=== PATIENT | female | born 1995 | race African-American/Black ===

== ENCOUNTER 2016-11-17 14:16 | Inpatient (IN) | payer SELFPAY ==
[~2016-11-17] VITALS: Ht 157.5 cm; Wt 49.9 kg
[~2016-11-17 14:16] MED LIST: CALC200T3 PO; INSU100C4 SQ; INSU100I17 SQ; INSU100I27 SQ; INSU100V13 SQ; INSU100V8 SQ; LISI2.5T PO; METR500T PO; PANT40TA3 PO
[2016-11-17 15:11] LABS: NEG OBC UR NEG; POS OBC UR POS
[2016-11-17] MEDS ORDERED: IV NORMAL SALINE 1000ML BAG 1,000 ML IV SCH (15:12)
[2016-11-17] MEDS ORDERED: FAMOTIDINE 20 MG/2 ML VIAL IVP ONE (15:15)
[2016-11-17] MEDS ORDERED: LIDO:MAALOX:DONNATAL 1:1:1 15 ML SINGLE DOSE SWSW ONE (15:15)
[2016-11-17] MEDS ORDERED: ONDANSETRON PF 4 MG/2 ML VIAL. IV ONE (15:15)
[2016-11-17 15:16] LABS: BILIRUBIN,URINE NEGATIVE (NEG); GLUCOSE,URINE >=1000 mg/dL (NEG); NITRITE,URINE NEGATIVE (NEG); PH,URINE 5.5; PROTEIN,URINE NEGATIVE (NEG-TRACE); UROBILINOGEN,URINE 0.2 mg/dL (0.2 mg/dL)
[2016-11-17] MEDS ORDERED: LIDO:MAALOX:DONNATAL 1:1:1 15 ML SINGLE DOSE ONE (15:18)
[2016-11-17 15:21] LABS: BASO # 0.1 x10^3/uL (0.0-0.2); BASO % 1 % (0-3); EOS % 1 % (0-3); HEMATOCRIT 45.4 % (36.0-47.0); HEMOGLOBIN 14.9 g/dL (12.0-15.5); LYMPH # 1.9 x10^3/uL (1.0-4.8); LYMPH % 29 % (24-48); MEAN CORPUSCULAR HEMOGLOBIN 30 pg (25-35); MEAN CORPUSCULAR HGB CONC 33 g/dL (31-37); MEAN CORPUSCULAR VOLUME 92 fL (79-100); MONO % 5 % (0-9); NEUT % 64 % (31-73); PLATELET COUNT 387 x10^3/uL (140-400); RED BLOOD COUNT 4.92 x10^6/uL (3.50-5.40); WHITE BLOOD COUNT 6.4 x10^3/uL (4.0-11.0)
[2016-11-17 15:29] LABS: BACTERIA,URINE FEW /HPF (0-FEW); RBC,URINE 0 /HPF (0-2); SQUAMOUS EPITHELIAL CELL,UR MANY /LPF; WBC,URINE OCC /HPF (0-4)
[2016-11-17 16:02] LABS: BARBITURATES NEG (NEG); BENZODIAZEPINES NEG (NEG); CANNABINOIDS NEG (NEG); COCAINE NEG (NEG); METHADONE NEG (NEG); OPIATES NEG (NEG); PHENCYCLIDINE NEG (NEG)
[2016-11-17 16:06] LABS: ETHANOL, URINE NEG (NEG)
[2016-11-17 16:23] LABS: ETHANOL < 10 mg/dL (0-10)
[2016-11-17] MEDS ORDERED: IV NORMAL SALINE 1000ML BAG 1,000 ML IV ONE (16:30)
[2016-11-17 16:32] LABS: ALBUMIN 3.5 g/dL (3.4-5.0); CALCIUM 9.3 mg/dL (8.5-10.1); CREATININE 0.8 mg/dL (0.6-1.0); DIRECT BILIRUBIN 0.1 mg/dL (0.0-0.2); GFR 108.5; POTASSIUM 4.9 mmol/L (3.5-5.1); TOTAL BILIRUBIN 0.7 mg/dL (0.2-1.0); TOTAL PROTEIN 7.1 g/dL (6.4-8.2)
[2016-11-17] MEDS ORDERED: KETOROLAC TROMETHAMINE 30 MG/ML SYRINGE. ONE (16:34)
[2016-11-17] MEDS ORDERED: KETOROLAC TROMETHAMINE 30 MG/ML SYRINGE. IV ONE (16:45)
[2016-11-17] MEDS ORDERED: INSULIN REGULAR 100 UNIT/ML 10ML VIAL. IV ONE (18:30)
--- NOTE | 2016-11-17 18:56 | PHYS DOC ---
Past Medical History Past Medical History: Diabetes-Type I Past Surgical History: Other Additional Past Surgical Histo: I&D abscess groin Alcohol Use: Occasionally Drug Use: Marijuana Adult General Chief Complaint Chief Complaint: ABDOMINAL PAIN HPI HPI Patient is a 21 year old female who presents with multiple episodes of nonbloody nonbilious emesis over the past 2 days associated with epigastric abdominal pain radiating into her chest. Symptoms are worse when she lays flat. She notes pain as burning and constant. She denies diarrhea, fever or chills, sick contacts. She states she has been compliant with her insulin. States her blood glucose was over 500 prior to arrival. She denies dysuria, hematuria, back pain, constipation, cough, dyspnea, sick contacts. She also notes she has suicidal without plan. She denies homicidal ideations or hallucinations. Review of Systems Review of Systems Constitutional: Denies fever or chills [] Eyes: Denies change in visual acuity, redness, or eye pain [] HENT: Denies nasal congestion or sore throat [] Respiratory: Denies cough or shortness of breath [] Cardiovascular: No additional information not addressed in HPI [] GI: Denies bloody stools or diarrhea [] : Denies dysuria or hematuria [] Musculoskeletal: Denies back pain or joint pain [] Integument: Denies rash or skin lesions [] Neurologic: Denies headache, focal weakness or sensory changes [] Endocrine: Denies polyuria or polydipsia [] Current Medications Current Medications Current Medications Medications (Trade) Dose Ordered Sig/Bakari Start Time Stop Time Status Last Admin Dose Admin Famotidine (Pepcid) 20 mg 1X ONCE 11/17/16 15:15 11/17/16 15:21 DC 11/17/16 15:22 20 MG Ketorolac Tromethamine (Toradol) 30 mg STK-MED ONCE 11/17/16 16:34 11/17/16 16:35 DC Multi-Ingredient Mouthwash/Gargle (Gi Cocktail Single Dose) 15 ml 1X ONCE 11/17/16 15:15 11/17/16 15:21 DC 11/17/16 15:21 15 ML Multi-Ingredient Mouthwash/Gargle 15 ml 15 ml STK-MED ONCE 11/17/16 15:18 11/17/16 15:19 DC Ondansetron HCl (Zofran) 4 mg 1X ONCE 11/17/16 15:15 11/17/16 15:21 DC 11/17/16 15:22 4 MG Sodium Chloride (Iv Sodium Chloride 0.9% 1000ml Bag) 1,000 ml @ 1,000 mls/hr 1X ONCE 11/17/16 16:30 11/17/16 17:29 DC 11/17/16 16:37 1,000 MLS/HR Allergies Allergies Allergies Coded Allergies Type Severity Reaction Last Updated Verified No Known Medication Allergies Allergy Unknown 09/10/16 Yes Physical Exam Physical Exam Constitutional: Well developed, well nourished, no acute distress, non-toxic appearance. [] HENT: Normocephalic, atraumatic, bilateral external ears normal, oropharynx moist, no oral exudates, nose normal. [] Eyes: PERRLA, EOMI. [] Neck: Normal range of motion, supple. [] Cardiovascular:Heart rate regular rhythm [] Lungs & Thorax: Bilateral breath sounds clear to auscultation [] Abdomen: Bowel sounds normal, soft, mild epigastric tenderness, no guarding or rebound. [] Skin: Warm, dry, no erythema, no rash. [] Back: No tenderness, no CVA tenderness. [] Extremities: OM intact, no edema. [] Neurologic: Alert and oriented X 3, normal motor function, normal sensory function, no focal deficits noted. [] Psychologic: Affect normal, judgement normal, mood normal. [] Current Patient Data Vital Signs Vital Signs Date Time Temp Pulse Resp B/P Pulse Ox O2 Delivery O2 Flow Rate FiO2 11/17/16 17:48 93 20 123/87 98 Room Air 11/17/16 14:49 97.8 97.8 Lab Values Laboratory Tests Test 11/17/16 14:40 11/17/16 15:10 11/17/16 15:14 Urine Collection Type Unknown Urine Color Yellow Urine Clarity Clear Urine pH 5.5 Urine Specific [place] >=1.030 Urine Protein Negativemg/dL (NEG-TRACE) Urine Glucose (UA) >=1000mg/dL (NEG) Urine Ketones (Stick) >=80mg/dL (NEG) Urine Blood Negative (NEG) Urine Nitrite Negative (NEG) Urine Bilirubin Negative (NEG) Urine Urobilinogen Dipstick 0.2mg/dL (0.2 mg/dL) Urine Leukocyte Esterase Negative (NEG) Urine RBC 0/HPF (0-2) Urine WBC Occ/HPF (0-4) Urine Squamous Epithelial Cells Many/LPF Urine Bacteria Few/HPF (0-FEW) Urine Test Negative (NEG) Urine Opiates Screen Neg (NEG) Urine Methadone Screen Neg (NEG) Urine Barbiturates Neg (NEG) Urine Phencyclidine Screen Neg (NEG) Urine Amphetamine/Methamphetamine Neg (NEG) Urine Benzodiazepines Screen Neg (NEG) Urine Cocaine Screen Neg (NEG) Urine Cannabinoids Screen Neg (NEG) Urine Ethyl Alcohol Neg (NEG) White Blood Count 6.4x10^3/uL (4.0-11.0) Red Blood Count 4.92x10^6/uL (3.50-5.40) Hemoglobin 14.9g/dL (12.0-15.5) Hematocrit 45.4% (36.0-47.0) Mean Corpuscular Volume 92fL (79-100) Mean Corpuscular Hemoglobin 30pg (25-35) Mean Corpuscular Hemoglobin Concent 33g/dL (31-37) Red Cell Distribution Width 13.0% (11.5-14.5) Platelet Count 387x10^3/uL (140-400) Neutrophils (%) (Auto) 64% (31-73) Lymphocytes (%) (Auto) 29% (24-48) Monocytes (%) (Auto) 5% (0-9) Eosinophils (%) (Auto) 1% (0-3) Basophils (%) (Auto) 1% (0-3) Neutrophils # (Auto) 4.1x10^3uL (1.8-7.7) Lymphocytes # (Auto) 1.9x10^3/uL (1.0-4.8) Monocytes # (Auto) 0.3x10^3/uL (0.0-1.1) Eosinophils # (Auto) 0.1x10^3/uL (0.0-0.7) Basophils # (Auto) 0.1x10^3/uL (0.0-0.2) Sodium Level 135mmol/L (136-145) L Potassium Level 4.9mmol/L (3.5-5.1) Chloride Level 98mmol/L (98-107) Carbon Dioxide Level 20mmol/L (21-32) L Anion Gap 17 (6-14) H Blood Urea Nitrogen 14mg/dL (7-20) Creatinine 0.8mg/dL (0.6-1.0) Estimated GFR (Cockcroft-Gault) 108.5 Glucose Level 569mg/dL (70-99) *H Calcium Level 9.3mg/dL (8.5-10.1) Total Bilirubin 0.7mg/dL (0.2-1.0) Direct Bilirubin 0.1mg/dL (0.0-0.2) Aspartate Amino Transferase (AST) 17U/L (15-37) Alanine Aminotransferase (ALT) 33U/L (14-59) Alkaline Phosphatase 101U/L (46-116) Total Protein 7.1g/dL (6.4-8.2) Albumin 3.5g/dL (3.4-5.0) Lipase 101U/L (73-393) Salicylates Level < 2.8mg/dL (2.8-20.0) L Salicylate Last Dose Date Salicylate Last Dose Time Acetaminophen Level < 2mcg/ml (10-30) L Acetaminophen Last Dose Date Acetaminophen Last Dose Time Ethyl Alcohol Level < 10mg/dL (0-10) Glucose (Fingerstick) 477mg/dL (70-99) H Laboratory Tests 11/17/16 15:10 Laboratory Tests 11/17/16 15:10 Course & Med Decision Making Course & Med Decision Making Pertinent Labs and Imaging studies reviewed. (See chart for details) Has hyperglycemia with ketonuria and mild anion gap acidosis. She was given IV fluids with some improvement of her hyperglycemia, but she will need to be admitted for medical therapy prior to psychiatric evaluation. Discussed case with Dr. Montero, who will admit. Dragbaljeet Disclaimer Dragon Disclaimer This electronic medical record was generated, in whole or in part, using a voice recognition dictation system. Departure Departure Impression: Primary Impression: Hyperglycemia Additional Impressions: Nausea and vomiting Epigastric abdominal pain Suicidal ideation Disposition: ADMITTED INPATIENT Condition: STABLE Referrals: NO PCP (PCP) Problem Qualifiers Additional Impressions: Nausea and vomiting Vomiting type: unspecified Vomiting Intractability: non-intractable Qualified Code: R11.2 - Nausea with vomiting, unspecified Kaylynn CORTEZ MD Nov 17, 2016 18:56
[2016-11-17 19:30] VITALS: BP 116/90
[2016-11-17] MEDS ORDERED: INSU100I27 SQ (20:01)
[2016-11-17] MEDS ORDERED: DEXTROSE 50% 25 GM / 50ML DISP.SYRIN. IV PRN (20:45)
[2016-11-17] MEDS: FAMOTIDINE 20 MG TABLET. PO SCH (21:19)
[2016-11-17] MEDS: IV NORMAL SALINE 1000ML BAG 1,000 ML IV SCH (21:19)
[2016-11-17] MEDS: KETOROLAC TROMETHAMINE 30 MG/ML SYRINGE. IV PRN (21:20)
[2016-11-17] MEDS: INSULIN DETEMIR 300 UNITS/3 ML INSULN.PEN. SQ SCH (21:33)
[2016-11-17 23:00] VITALS: BP 137/98
--- NOTE | 2016-11-18 00:01 | HP ---
ADMIT DATE: 11/17/2016 CHIEF COMPLAINT: Hyperglycemia. HISTORY OF PRESENT ILLNESS: The patient is a 21-year-old -[place] woman with diabetes type 1, who comes in on a monthly basis for abdominal pain secondary to high blood sugars. She states that she gets her insulin supplies from a druze and only limited amounts are given to her. She always has abdominal pain, which she states only responds to fentanyl. She once again has epigastric pain radiating towards the back. Symptoms are worse when she lies down. She vomited once this morning, no blood. This is her typical pain. Denies any diarrhea or constipation. She states she ran out of her insulin supplies yesterday night when her blood sugars were actually still around 200. Denies any dysuria, hematuria, back pain, shortness of breath or cough. In the Emergency Room, she was found with glucose over 500, ketones in the urine, but gap still okay, CO2 at 20. She was therefore admitted with hyperglycemia and abdominal pain. PAST MEDICAL HISTORY: Diabetes type 1. Question gastroparesis, history of spontaneous abortions, I and D of groin abscess, hypertension and bipolar disorder. FAMILY HISTORY: Positive for diabetes as well as hypertension on paternal side. On maternal side, mental illness. SOCIAL HISTORY: Currently living with a cousin. Never worked trying to get SSI. No tobacco smoking. Occasional marijuana and occasional alcohol use. ALLERGIES: No known drug allergies. MEDICATIONS: MAR reconciled with home medications. REVIEW OF SYSTEMS: Positive as per HPI. Rest of organ system review is negative. PHYSICAL EXAMINATION: VITAL SIGNS: Show a blood pressure of 119/81, heart rate of 97, respiratory rate at 20. She is afebrile. GENERAL: This is a slim 21-year-old -[place] woman, alert and oriented, in no acute distress. HEENT: Shows no scleral icterus. NECK: Supple. LUNGS: Fairly clear to auscultation bilaterally; however, deep breathing causes cough. HEART: Regular rate and rhythm. ABDOMEN: Positive bowel sounds, soft, nontender. EXTREMITIES: Show no edema, no clubbing, no cyanosis. SKIN: Warm, soft and dry without any rash. LABORATORY DATA: CBC with a WBC of 6.4, hemoglobin 14.9, platelets of 387, normal differential. Chemistries with a BUN and creatinine of 14 and 0.8, sodium 135, potassium 4.9, CO2 at 20, gap of 17, glucose initially at 569. LFTs within normal. Lipase is normal. Urine positive for glucose and ketones, concentrated as well with specific gravity at greater than 1.03. test is negative. ASSESSMENT AND PLAN: The patient is a 21-year-old diabetic who presents with hyperglycemia, possibly secondary to running out of her medications. We will admit her for better glucose control. She will be started on her insulin regimen. Insulin sliding scale will be added. We will continue IV fluids. For her pain, she will receive Toradol. We will avoid IV narcotics. Nausea and vomiting and abdominal pain, possibly related to diabetic gastroparesis. We will monitor. If need be, start Reglan IV. She states that she is hungry currently. We will start diabetic diet. We will start her on H2 blockers b.i.d. as well. MARIELA SORIANO MD DR: MIRANDA/nts JOB#: [id number] / [id number] IVAN
[2016-11-18 03:00] VITALS: BP 130/96
[2016-11-18] MEDS: KETOROLAC TROMETHAMINE 30 MG/ML SYRINGE. IV PRN ×3 (03:21→20:52)
[2016-11-18 06:05] LABS: BASO # 0.1 x10^3/uL (0.0-0.2); BASO % 1 % (0-3); EOS % 1 % (0-3); HEMATOCRIT 35.6 % (36.0-47.0); LYMPH # 3.2 x10^3/uL (1.0-4.8); LYMPH % 44 % (24-48); MEAN CORPUSCULAR HEMOGLOBIN 30 pg (25-35); MEAN CORPUSCULAR HGB CONC 34 g/dL (31-37); MEAN CORPUSCULAR VOLUME 88 fL (79-100); MONO % 7 % (0-9); NEUT % 47 % (31-73); PLATELET COUNT 344 x10^3/uL (140-400); RED BLOOD COUNT 4.03 x10^6/uL (3.50-5.40); RED CELL DISTRIBUTION WIDTH 12.8 % (11.5-14.5); WHITE BLOOD COUNT 7.2 x10^3/uL (4.0-11.0)
[2016-11-18 06:19] LABS: CALCIUM 8.7 mg/dL (8.5-10.1); CREATININE 0.6 mg/dL (0.6-1.0); GFR 151.3; MAGNESIUM 1.6 mg/dL (1.8-2.4); POTASSIUM 3.7 mmol/L (3.5-5.1)
[2016-11-18 07:00] VITALS: BP 119/81
[2016-11-18] MEDS: INSULIN ASPART 300 UNITS/3 ML INSULN.PEN SQ SCH ×3 (07:30→17:39)
[2016-11-18] MEDS: FAMOTIDINE 20 MG TABLET. PO SCH ×2 (08:04→20:51)
[2016-11-18] MEDS: IV NORMAL SALINE 1000ML BAG 1,000 ML IV SCH ×2 (10:20→22:16)
[2016-11-18 11:00] VITALS: BP 126/81
[2016-11-18 15:00] VITALS: BP 132/98
--- NOTE | 2016-11-18 15:40 | PDOC ---
PROGRESS NOTES Chief Complaint Chief Complaint Hyperglycemia ASSESSMENT AND PLAN: 1. Hyperglycemia: much better controlled with insulin (who knew??), as a matter of fact, sl on hypoglycemic side. monitor for add'l day. advised her that insulin in bulk vial si very cheap and she should get some to tide her over when she runs out of her peggy supply from [facility]. 2. Abd pain: states toradol is not helping, requests fentanyl. she can eat and drink ok, no IV narcotics indicated. 3. nausea: resolved. ? early diabetic gastroparesis 4. depression: PAt team evaluated her this AM; rec O/P F/U at [place] or [place] 5. Dispo: prob home in AM Vitals Vitals Vital Signs Date Time Temp Pulse Resp B/P Pulse Ox O2 Delivery O2 Flow Rate FiO2 11/18/16 11:00 98.2 95 19 126/81 99 Room Air 98.2 Physical Exam General: Alert, Oriented X3, Cooperative Heart: Regular rate Lungs: Clear Abdomen: Normal bowel sounds, Soft, No tenderness Extremities: No edema Skin: No rashes Labs LABS Laboratory Tests Test 11/17/16 21:13 11/18/16 05:45 11/18/16 07:30 11/18/16 08:28 Glucose (Fingerstick) 301mg/dL (70-99) 54mg/dL (70-99) 118mg/dL (70-99) White Blood Count 7.2x10^3/uL (4.0-11.0) Red Blood Count 4.03x10^6/uL (3.50-5.40) Hemoglobin 12.0g/dL (12.0-15.5) Hematocrit 35.6% (36.0-47.0) Mean Corpuscular Volume 88fL (79-100) Mean Corpuscular Hemoglobin 30pg (25-35) Mean Corpuscular Hemoglobin Concent 34g/dL (31-37) Red Cell Distribution Width 12.8% (11.5-14.5) Platelet Count 344x10^3/uL (140-400) Neutrophils (%) (Auto) 47% (31-73) Lymphocytes (%) (Auto) 44% (24-48) Monocytes (%) (Auto) 7% (0-9) Eosinophils (%) (Auto) 1% (0-3) Basophils (%) (Auto) 1% (0-3) Neutrophils # (Auto) 3.4x10^3uL (1.8-7.7) Lymphocytes # (Auto) 3.2x10^3/uL (1.0-4.8) Monocytes # (Auto) 0.5x10^3/uL (0.0-1.1) Eosinophils # (Auto) 0.1x10^3/uL (0.0-0.7) Basophils # (Auto) 0.1x10^3/uL (0.0-0.2) Sodium Level 141mmol/L (136-145) Potassium Level 3.7mmol/L (3.5-5.1) Chloride Level 109mmol/L (98-107) Carbon Dioxide Level 23mmol/L (21-32) Anion Gap 9 (6-14) Blood Urea Nitrogen 11mg/dL (7-20) Creatinine 0.6mg/dL (0.6-1.0) Estimated GFR (Cockcroft-Gault) 151.3 Glucose Level 147mg/dL (70-99) Calcium Level 8.7mg/dL (8.5-10.1) Magnesium Level 1.6mg/dL (1.8-2.4) Test 11/18/16 10:23 Glucose (Fingerstick) 152mg/dL (70-99) Review of Systems Review of Systems c/o abd pain, but moves around w/o difficulties and even forgets to feign pain when distracted during palpation of the abd Comment Review of Relevant I have reviewed the following items cristela (where applicable) has been applied. Labs Laboratory Tests Test 11/17/16 14:40 11/17/16 15:10 11/17/16 15:14 11/17/16 21:13 Urine Collection Type Unknown Urine Color Yellow Urine Clarity Clear Urine pH 5.5 Urine Specific [place] >=1.030 Urine Protein Negativemg/dL (NEG-TRACE) Urine Glucose (UA) >=1000mg/dL (NEG) Urine Ketones (Stick) >=80mg/dL (NEG) Urine Blood Negative (NEG) Urine Nitrite Negative (NEG) Urine Bilirubin Negative (NEG) Urine Urobilinogen Dipstick 0.2mg/dL (0.2 mg/dL) Urine Leukocyte Esterase Negative (NEG) Urine RBC 0/HPF (0-2) Urine WBC Occ/HPF (0-4) Urine Squamous Epithelial Cells Many/LPF Urine Bacteria Few/HPF (0-FEW) Urine Test Negative (NEG) Urine Opiates Screen Neg (NEG) Urine Methadone Screen Neg (NEG) Urine Barbiturates Neg (NEG) Urine Phencyclidine Screen Neg (NEG) Urine Amphetamine/Methamphetamine Neg (NEG) Urine Benzodiazepines Screen Neg (NEG) Urine Cocaine Screen Neg (NEG) Urine Cannabinoids Screen Neg (NEG) Urine Ethyl Alcohol Neg (NEG) White Blood Count 6.4x10^3/uL (4.0-11.0) Red Blood Count 4.92x10^6/uL (3.50-5.40) Hemoglobin 14.9g/dL (12.0-15.5) Hematocrit 45.4% (36.0-47.0) Mean Corpuscular Volume 92fL (79-100) Mean Corpuscular Hemoglobin 30pg (25-35) Mean Corpuscular Hemoglobin Concent 33g/dL (31-37) Red Cell Distribution Width 13.0% (11.5-14.5) Platelet Count 387x10^3/uL (140-400) Neutrophils (%) (Auto) 64% (31-73) Lymphocytes (%) (Auto) 29% (24-48) Monocytes (%) (Auto) 5% (0-9) Eosinophils (%) (Auto) 1% (0-3) Basophils (%) (Auto) 1% (0-3) Neutrophils # (Auto) 4.1x10^3uL (1.8-7.7) Lymphocytes # (Auto) 1.9x10^3/uL (1.0-4.8) Monocytes # (Auto) 0.3x10^3/uL (0.0-1.1) Eosinophils # (Auto) 0.1x10^3/uL (0.0-0.7) Basophils # (Auto) 0.1x10^3/uL (0.0-0.2) Sodium Level 135mmol/L (136-145) Potassium Level 4.9mmol/L (3.5-5.1) Chloride Level 98mmol/L (98-107) Carbon Dioxide Level 20mmol/L (21-32) Anion Gap 17 (6-14) Blood Urea Nitrogen 14mg/dL (7-20) Creatinine 0.8mg/dL (0.6-1.0) Estimated GFR (Cockcroft-Gault) 108.5 Glucose Level 569mg/dL (70-99) Calcium Level 9.3mg/dL (8.5-10.1) Total Bilirubin 0.7mg/dL (0.2-1.0) Direct Bilirubin 0.1mg/dL (0.0-0.2) Aspartate Amino Transf (AST/SGOT) 17U/L (15-37) Alanine Aminotransferase (ALT/SGPT) 33U/L (14-59) Alkaline Phosphatase 101U/L (46-116) Total Protein 7.1g/dL (6.4-8.2) Albumin 3.5g/dL (3.4-5.0) Lipase 101U/L (73-393) Salicylates Level < 2.8mg/dL (2.8-20.0) Salicylate Last Dose Date Salicylate Last Dose Time Acetaminophen Level < 2mcg/ml (10-30) Acetaminophen Last Dose Date Acetaminophen Last Dose Time Ethyl Alcohol Level < 10mg/dL (0-10) Glucose (Fingerstick) 477mg/dL (70-99) 301mg/dL (70-99) Test 11/18/16 05:45 11/18/16 07:30 11/18/16 08:28 11/18/16 10:23 White Blood Count 7.2x10^3/uL (4.0-11.0) Red Blood Count 4.03x10^6/uL (3.50-5.40) Hemoglobin 12.0g/dL (12.0-15.5) Hematocrit 35.6% (36.0-47.0) Mean Corpuscular Volume 88fL (79-100) Mean Corpuscular Hemoglobin 30pg (25-35) Mean Corpuscular Hemoglobin Concent 34g/dL (31-37) Red Cell Distribution Width 12.8% (11.5-14.5) Platelet Count 344x10^3/uL (140-400) Neutrophils (%) (Auto) 47% (31-73) Lymphocytes (%) (Auto) 44% (24-48) Monocytes (%) (Auto) 7% (0-9) Eosinophils (%) (Auto) 1% (0-3) Basophils (%) (Auto) 1% (0-3) Neutrophils # (Auto) 3.4x10^3uL (1.8-7.7) Lymphocytes # (Auto) 3.2x10^3/uL (1.0-4.8) Monocytes # (Auto) 0.5x10^3/uL (0.0-1.1) Eosinophils # (Auto) 0.1x10^3/uL (0.0-0.7) Basophils # (Auto) 0.1x10^3/uL (0.0-0.2) Sodium Level 141mmol/L (136-145) Potassium Level 3.7mmol/L (3.5-5.1) Chloride Level 109mmol/L (98-107) Carbon Dioxide Level 23mmol/L (21-32) Anion Gap 9 (6-14) Blood Urea Nitrogen 11mg/dL (7-20) Creatinine 0.6mg/dL (0.6-1.0) Estimated GFR (Cockcroft-Gault) 151.3 Glucose Level 147mg/dL (70-99) Calcium Level 8.7mg/dL (8.5-10.1) Magnesium Level 1.6mg/dL (1.8-2.4) Glucose (Fingerstick) 54mg/dL (70-99) 118mg/dL (70-99) 152mg/dL (70-99) Laboratory Tests Test 11/17/16 21:13 11/18/16 05:45 11/18/16 07:30 11/18/16 08:28 Glucose (Fingerstick) 301mg/dL (70-99) 54mg/dL (70-99) 118mg/dL (70-99) White Blood Count 7.2x10^3/uL (4.0-11.0) Red Blood Count 4.03x10^6/uL (3.50-5.40) Hemoglobin 12.0g/dL (12.0-15.5) Hematocrit 35.6% (36.0-47.0) Mean Corpuscular Volume 88fL (79-100) Mean Corpuscular Hemoglobin 30pg (25-35) Mean Corpuscular Hemoglobin Concent 34g/dL (31-37) Red Cell Distribution Width 12.8% (11.5-14.5) Platelet Count 344x10^3/uL (140-400) Neutrophils (%) (Auto) 47% (31-73) Lymphocytes (%) (Auto) 44% (24-48) Monocytes (%) (Auto) 7% (0-9) Eosinophils (%) (Auto) 1% (0-3) Basophils (%) (Auto) 1% (0-3) Neutrophils # (Auto) 3.4x10^3uL (1.8-7.7) Lymphocytes # (Auto) 3.2x10^3/uL (1.0-4.8) Monocytes # (Auto) 0.5x10^3/uL (0.0-1.1) Eosinophils # (Auto) 0.1x10^3/uL (0.0-0.7) Basophils # (Auto) 0.1x10^3/uL (0.0-0.2) Sodium Level 141mmol/L (136-145) Potassium Level 3.7mmol/L (3.5-5.1) Chloride Level 109mmol/L (98-107) Carbon Dioxide Level 23mmol/L (21-32) Anion Gap 9 (6-14) Blood Urea Nitrogen 11mg/dL (7-20) Creatinine 0.6mg/dL (0.6-1.0) Estimated GFR (Cockcroft-Gault) 151.3 Glucose Level 147mg/dL (70-99) Calcium Level 8.7mg/dL (8.5-10.1) Magnesium Level 1.6mg/dL (1.8-2.4) Test 11/18/16 10:23 Glucose (Fingerstick) 152mg/dL (70-99) Medications Current Medications Multi-Ingredient Mouthwash/Gargle 15 ml 15 ml 1X ONCE SWSW Last administered on 11/17/16 15:21; Start 11/17/16 at 15:15; Stop 11/17/16 at 15:21; Status DC Sodium Chloride (Iv Sodium Chloride 0.9% 1000ml Bag) 1,000 ml @ 1,000 mls/hr Q1H IV Last administered on 11/17/16 15:22; Start 11/17/16 at 15:12; Stop at 16:11; Status DC Ondansetron HCl (Zofran) 4 mg 1X ONCE IV Last administered on 11/17/16 15:22; Start 11/17/16 at 15:15; Stop 11/17/16 at 15:21; Status DC Famotidine (Pepcid) 20 mg 1X ONCE IVP Last administered on 11/17/16 15:22; Start 11/17/16 at 15:15; Stop 11/17/16 at 15:21; Status DC Multi-Ingredient Mouthwash/Gargle 15 ml 15 ml STK-MED ONCE .ROUTE ; Start at 15:18; Stop 11/17/16 at 15:19; Status DC Sodium Chloride (Iv Sodium Chloride 0.9% 1000ml Bag) 1,000 ml @ 1,000 mls/hr 1X ONCE IV Last administered on 11/17/16 16:37; Start 11/17/16 at 16:30; Stop 11/17/16 at 17:29; Status DC Ketorolac Tromethamine (Toradol) 15 mg 1X ONCE IV Last administered on 16:37; Start 11/17/16 at 16:45; Stop 11/17/16 at 16:46; Status DC Ketorolac Tromethamine (Toradol) 30 mg STK-MED ONCE .ROUTE ; Start 11/17/16 at 16 :34; Stop 11/17/16 at 16:35; Status DC Insulin Human Regular (Novolin R Vial) 10 unit 1X ONCE IV Last administered on 11/17/16 18:46; Start 11/17/16 at 18:30; Stop 11/17/16 at 18:31; Status DC Ketorolac Tromethamine (Toradol) 30 mg PRN Q6HRS PRN IV PAIN Last administered on 11/18/16 11:50; Start 11/17/16 at 20:30; Stop 11/19/16 at 23:59 Insulin Detemir (Levemir) 30 units QHS SQ Last administered on 11/17/16 21:33; Start 11/17/16 at 21:00 Insulin Aspart 10 units 10 units TIDAC SQ Last administered on 11/18/16 12:19; Start 11/18/16 at 07:30 Sodium Chloride (Iv Sodium Chloride 0.9% 1000ml Bag) 1,000 ml @ 75 mls/hr [id number] IV Last administered on 11/18/16 10:20; Start 11/17/16 at 21:00 Dextrose 12.5 gm PRN Q15MIN PRN IV SEE COMMENTS; Start 11/17/16 at 20:45 Famotidine (Pepcid) 20 mg BID PO Last administered on 11/18/16 08:04; Start 11/17/16 at 21:00 Active Scripts Active Levemir Flextouch (Insulin Detemir) 100 Unit/1 Ml Insuln.pen 30 Units SQ QHS 30 Days Novolog (Insulin Aspart) 100 Unit/1 Ml Cartridge 10 Units SQ TIDAC 30 Days Reported Levemir Flextouch (Insulin Detemir) 100 Unit/1 Ml Insuln.pen 25 Unit SQ HS Vitals/I & O Vital Sign - Last 24 Hours 11/17/16 11/17/16 11/17/16 11/17/16 15:48 16:48 17:48 18:48 Pulse 94 94 93 97 Resp 20 20 20 20 B/P 133/90 125/86 123/87 119/81 Pulse Ox 99 99 98 98 O2 Delivery Room Air Room Air Room Air Room Air 11/17/16 11/17/16 11/17/16 11/18/16 19:30 19:30 23:00 03:00 Temp 98.1 98.1 97.5 98.3 98.1 98.1 97.5 98.3 Pulse 100 100 93 93 Resp 20 20 18 18 B/P 116/90 116/90 137/98 130/96 Pulse Ox 100 100 100 98 O2 Delivery Room Air Room Air Room Air Room Air 11/18/16 11/18/16 07:00 11:00 Temp 97.6 98.2 97.6 98.2 Pulse 89 95 Resp 18 19 B/P 119/81 126/81 Pulse Ox 81 99 O2 Delivery Room Air Room Air Intake and Output 11/17/16 11/17/16 11/18/16 15:00 23:00 07:00 Intake Total 2000 ml 1300 ml Balance 2000 ml 1300 ml MARIELA SORIANO MD Nov 18, 2016 15:40
[2016-11-18 19:00] VITALS: BP 147/112
[2016-11-18] MEDS: DIPHENHYDRAMINE HCL 25 MG CAPSULE PO PRN (20:51)
[2016-11-18] MEDS: INSULIN DETEMIR 300 UNITS/3 ML INSULN.PEN. SQ SCH (20:59)
[2016-11-18 23:00] VITALS: BP 145/86
[2016-11-19 03:00] VITALS: BP 140/103
[2016-11-19 04:55] LABS: CALCIUM 8.4 mg/dL (8.5-10.1); CREATININE 0.5 mg/dL (0.6-1.0); GFR 186.7; MAGNESIUM 1.4 mg/dL (1.8-2.4); POTASSIUM 3.7 mmol/L (3.5-5.1)
[2016-11-19 05:02] LABS: BASO # 0.1 x10^3/uL (0.0-0.2); BASO % 1 % (0-3); EOS % 1 % (0-3); HEMATOCRIT 33.8 % (36.0-47.0); HEMOGLOBIN 11.5 g/dL (12.0-15.5); LYMPH # 3.8 x10^3/uL (1.0-4.8); LYMPH % 49 % (24-48); MEAN CORPUSCULAR HEMOGLOBIN 30 pg (25-35); MEAN CORPUSCULAR HGB CONC 34 g/dL (31-37); MEAN CORPUSCULAR VOLUME 89 fL (79-100); MONO % 6 % (0-9); NEUT % 43 % (31-73); PLATELET COUNT 320 x10^3/uL (140-400); RED BLOOD COUNT 3.82 x10^6/uL (3.50-5.40); RED CELL DISTRIBUTION WIDTH 12.7 % (11.5-14.5); WHITE BLOOD COUNT 7.7 x10^3/uL (4.0-11.0)
[2016-11-19 07:00] VITALS: BP 144/108
[2016-11-19] MEDS: FAMOTIDINE 20 MG TABLET. PO SCH ×2 (08:28→20:49)
[2016-11-19] MEDS: INSULIN ASPART 300 UNITS/3 ML INSULN.PEN SQ SCH ×3 (08:35→17:56)
--- NOTE | 2016-11-19 09:17 | PDOC ---
PROGRESS NOTES Chief Complaint Chief Complaint 1. Hyperglycemia: much better controlled with insulin 2. Abd pain: states toradol is not helping, 3. nausea: improved, early diabetic gastroparesis 4. depression: [facility] team evaluated her this AM; rec O/P F/U at [place] or [place] 5. Dispo: emotional distress, anxiety state, social issues History of Present Illness History of Present Illness DC when she appears able to take care of herself Vitals Vitals Vital Signs Date Time Temp Pulse Resp B/P Pulse Ox O2 Delivery O2 Flow Rate FiO2 11/19/16 07:00 98.2 90 18 144/108 100 Room Air 98.2 Physical Exam General: Alert, Oriented X3, Cooperative Heart: Regular rate Lungs: Clear Abdomen: Normal bowel sounds, Soft, No tenderness Extremities: No edema Skin: No rashes Labs LABS Laboratory Tests Test 11/18/16 10:23 11/18/16 16:41 11/18/16 20:49 11/19/16 03:17 Glucose (Fingerstick) 152mg/dL (70-99) 249mg/dL (70-99) 271mg/dL (70-99) White Blood Count 7.7x10^3/uL (4.0-11.0) Red Blood Count 3.82x10^6/uL (3.50-5.40) Hemoglobin 11.5g/dL (12.0-15.5) Hematocrit 33.8% (36.0-47.0) Mean Corpuscular Volume 89fL (79-100) Mean Corpuscular Hemoglobin 30pg (25-35) Mean Corpuscular Hemoglobin Concent 34g/dL (31-37) Red Cell Distribution Width 12.7% (11.5-14.5) Platelet Count 320x10^3/uL (140-400) Neutrophils (%) (Auto) 43% (31-73) Lymphocytes (%) (Auto) 49% (24-48) Monocytes (%) (Auto) 6% (0-9) Eosinophils (%) (Auto) 1% (0-3) Basophils (%) (Auto) 1% (0-3) Neutrophils # (Auto) 3.3x10^3uL (1.8-7.7) Lymphocytes # (Auto) 3.8x10^3/uL (1.0-4.8) Monocytes # (Auto) 0.5x10^3/uL (0.0-1.1) Eosinophils # (Auto) 0.1x10^3/uL (0.0-0.7) Basophils # (Auto) 0.1x10^3/uL (0.0-0.2) Sodium Level 143mmol/L (136-145) Potassium Level 3.7mmol/L (3.5-5.1) Chloride Level 110mmol/L (98-107) Carbon Dioxide Level 24mmol/L (21-32) Anion Gap 9 (6-14) Blood Urea Nitrogen 12mg/dL (7-20) Creatinine 0.5mg/dL (0.6-1.0) Estimated GFR (Cockcroft-Gault) 186.7 Glucose Level 246mg/dL (70-99) Calcium Level 8.4mg/dL (8.5-10.1) Magnesium Level 1.4mg/dL (1.8-2.4) Test 11/19/16 07:24 Glucose (Fingerstick) 115mg/dL (70-99) Assessment and Plan Assessmemt and Plan Problems Medical Problems: (1) Epigastric abdominal pain Status: Acute (2) Hyperglycemia Status: Acute (3) Nausea and vomiting Status: Acute (4) Suicidal ideation Status: Acute Problems: Comment Review of Relevant I have reviewed the following items cristela (where applicable) has been applied. Labs Laboratory Tests Test 11/17/16 14:40 11/17/16 15:10 11/17/16 15:14 11/17/16 21:13 Urine Collection Type Unknown Urine Color Yellow Urine Clarity Clear Urine pH 5.5 Urine Specific [place] >=1.030 Urine Protein Negativemg/dL (NEG-TRACE) Urine Glucose (UA) >=1000mg/dL (NEG) Urine Ketones (Stick) >=80mg/dL (NEG) Urine Blood Negative (NEG) Urine Nitrite Negative (NEG) Urine Bilirubin Negative (NEG) Urine Urobilinogen Dipstick 0.2mg/dL (0.2 mg/dL) Urine Leukocyte Esterase Negative (NEG) Urine RBC 0/HPF (0-2) Urine WBC Occ/HPF (0-4) Urine Squamous Epithelial Cells Many/LPF Urine Bacteria Few/HPF (0-FEW) Urine Test Negative (NEG) Urine Opiates Screen Neg (NEG) Urine Methadone Screen Neg (NEG) Urine Barbiturates Neg (NEG) Urine Phencyclidine Screen Neg (NEG) Urine Amphetamine/Methamphetamine Neg (NEG) Urine Benzodiazepines Screen Neg (NEG) Urine Cocaine Screen Neg (NEG) Urine Cannabinoids Screen Neg (NEG) Urine Ethyl Alcohol Neg (NEG) White Blood Count 6.4x10^3/uL (4.0-11.0) Red Blood Count 4.92x10^6/uL (3.50-5.40) Hemoglobin 14.9g/dL (12.0-15.5) Hematocrit 45.4% (36.0-47.0) Mean Corpuscular Volume 92fL (79-100) Mean Corpuscular Hemoglobin 30pg (25-35) Mean Corpuscular Hemoglobin Concent 33g/dL (31-37) Red Cell Distribution Width 13.0% (11.5-14.5) Platelet Count 387x10^3/uL (140-400) Neutrophils (%) (Auto) 64% (31-73) Lymphocytes (%) (Auto) 29% (24-48) Monocytes (%) (Auto) 5% (0-9) Eosinophils (%) (Auto) 1% (0-3) Basophils (%) (Auto) 1% (0-3) Neutrophils # (Auto) 4.1x10^3uL (1.8-7.7) Lymphocytes # (Auto) 1.9x10^3/uL (1.0-4.8) Monocytes # (Auto) 0.3x10^3/uL (0.0-1.1) Eosinophils # (Auto) 0.1x10^3/uL (0.0-0.7) Basophils # (Auto) 0.1x10^3/uL (0.0-0.2) Sodium Level 135mmol/L (136-145) Potassium Level 4.9mmol/L (3.5-5.1) Chloride Level 98mmol/L (98-107) Carbon Dioxide Level 20mmol/L (21-32) Anion Gap 17 (6-14) Blood Urea Nitrogen 14mg/dL (7-20) Creatinine 0.8mg/dL (0.6-1.0) Estimated GFR (Cockcroft-Gault) 108.5 Glucose Level 569mg/dL (70-99) Calcium Level 9.3mg/dL (8.5-10.1) Total Bilirubin 0.7mg/dL (0.2-1.0) Direct Bilirubin 0.1mg/dL (0.0-0.2) Aspartate Amino Transf (AST/SGOT) 17U/L (15-37) Alanine Aminotransferase (ALT/SGPT) 33U/L (14-59) Alkaline Phosphatase 101U/L (46-116) Total Protein 7.1g/dL (6.4-8.2) Albumin 3.5g/dL (3.4-5.0) Lipase 101U/L (73-393) Salicylates Level < 2.8mg/dL (2.8-20.0) Salicylate Last Dose Date Salicylate Last Dose Time Acetaminophen Level < 2mcg/ml (10-30) Acetaminophen Last Dose Date Acetaminophen Last Dose Time Ethyl Alcohol Level < 10mg/dL (0-10) Glucose (Fingerstick) 477mg/dL (70-99) 301mg/dL (70-99) Test 11/18/16 05:45 11/18/16 07:30 11/18/16 08:28 11/18/16 10:23 White Blood Count 7.2x10^3/uL (4.0-11.0) Red Blood Count 4.03x10^6/uL (3.50-5.40) Hemoglobin 12.0g/dL (12.0-15.5) Hematocrit 35.6% (36.0-47.0) Mean Corpuscular Volume 88fL (79-100) Mean Corpuscular Hemoglobin 30pg (25-35) Mean Corpuscular Hemoglobin Concent 34g/dL (31-37) Red Cell Distribution Width 12.8% (11.5-14.5) Platelet Count 344x10^3/uL (140-400) Neutrophils (%) (Auto) 47% (31-73) Lymphocytes (%) (Auto) 44% (24-48) Monocytes (%) (Auto) 7% (0-9) Eosinophils (%) (Auto) 1% (0-3) Basophils (%) (Auto) 1% (0-3) Neutrophils # (Auto) 3.4x10^3uL (1.8-7.7) Lymphocytes # (Auto) 3.2x10^3/uL (1.0-4.8) Monocytes # (Auto) 0.5x10^3/uL (0.0-1.1) Eosinophils # (Auto) 0.1x10^3/uL (0.0-0.7) Basophils # (Auto) 0.1x10^3/uL (0.0-0.2) Sodium Level 141mmol/L (136-145) Potassium Level 3.7mmol/L (3.5-5.1) Chloride Level 109mmol/L (98-107) Carbon Dioxide Level 23mmol/L (21-32) Anion Gap 9 (6-14) Blood Urea Nitrogen 11mg/dL (7-20) Creatinine 0.6mg/dL (0.6-1.0) Estimated GFR (Cockcroft-Gault) 151.3 Glucose Level 147mg/dL (70-99) Calcium Level 8.7mg/dL (8.5-10.1) Magnesium Level 1.6mg/dL (1.8-2.4) Glucose (Fingerstick) 54mg/dL (70-99) 118mg/dL (70-99) 152mg/dL (70-99) Test 11/18/16 16:41 11/18/16 20:49 11/19/16 03:17 11/19/16 07:24 Glucose (Fingerstick) 249mg/dL (70-99) 271mg/dL (70-99) 115mg/dL (70-99) White Blood Count 7.7x10^3/uL (4.0-11.0) Red Blood Count 3.82x10^6/uL (3.50-5.40) Hemoglobin 11.5g/dL (12.0-15.5) Hematocrit 33.8% (36.0-47.0) Mean Corpuscular Volume 89fL (79-100) Mean Corpuscular Hemoglobin 30pg (25-35) Mean Corpuscular Hemoglobin Concent 34g/dL (31-37) Red Cell Distribution Width 12.7% (11.5-14.5) Platelet Count 320x10^3/uL (140-400) Neutrophils (%) (Auto) 43% (31-73) Lymphocytes (%) (Auto) 49% (24-48) Monocytes (%) (Auto) 6% (0-9) Eosinophils (%) (Auto) 1% (0-3) Basophils (%) (Auto) 1% (0-3) Neutrophils # (Auto) 3.3x10^3uL (1.8-7.7) Lymphocytes # (Auto) 3.8x10^3/uL (1.0-4.8) Monocytes # (Auto) 0.5x10^3/uL (0.0-1.1) Eosinophils # (Auto) 0.1x10^3/uL (0.0-0.7) Basophils # (Auto) 0.1x10^3/uL (0.0-0.2) Sodium Level 143mmol/L (136-145) Potassium Level 3.7mmol/L (3.5-5.1) Chloride Level 110mmol/L (98-107) Carbon Dioxide Level 24mmol/L (21-32) Anion Gap 9 (6-14) Blood Urea Nitrogen 12mg/dL (7-20) Creatinine 0.5mg/dL (0.6-1.0) Estimated GFR (Cockcroft-Gault) 186.7 Glucose Level 246mg/dL (70-99) Calcium Level 8.4mg/dL (8.5-10.1) Magnesium Level 1.4mg/dL (1.8-2.4) Laboratory Tests Test 11/18/16 10:23 11/18/16 16:41 11/18/16 20:49 11/19/16 03:17 Glucose (Fingerstick) 152mg/dL (70-99) 249mg/dL (70-99) 271mg/dL (70-99) White Blood Count 7.7x10^3/uL (4.0-11.0) Red Blood Count 3.82x10^6/uL (3.50-5.40) Hemoglobin 11.5g/dL (12.0-15.5) Hematocrit 33.8% (36.0-47.0) Mean Corpuscular Volume 89fL (79-100) Mean Corpuscular Hemoglobin 30pg (25-35) Mean Corpuscular Hemoglobin Concent 34g/dL (31-37) Red Cell Distribution Width 12.7% (11.5-14.5) Platelet Count 320x10^3/uL (140-400) Neutrophils (%) (Auto) 43% (31-73) Lymphocytes (%) (Auto) 49% (24-48) Monocytes (%) (Auto) 6% (0-9) Eosinophils (%) (Auto) 1% (0-3) Basophils (%) (Auto) 1% (0-3) Neutrophils # (Auto) 3.3x10^3uL (1.8-7.7) Lymphocytes # (Auto) 3.8x10^3/uL (1.0-4.8) Monocytes # (Auto) 0.5x10^3/uL (0.0-1.1) Eosinophils # (Auto) 0.1x10^3/uL (0.0-0.7) Basophils # (Auto) 0.1x10^3/uL (0.0-0.2) Sodium Level 143mmol/L (136-145) Potassium Level 3.7mmol/L (3.5-5.1) Chloride Level 110mmol/L (98-107) Carbon Dioxide Level 24mmol/L (21-32) Anion Gap 9 (6-14) Blood Urea Nitrogen 12mg/dL (7-20) Creatinine 0.5mg/dL (0.6-1.0) Estimated GFR (Cockcroft-Gault) 186.7 Glucose Level 246mg/dL (70-99) Calcium Level 8.4mg/dL (8.5-10.1) Magnesium Level 1.4mg/dL (1.8-2.4) Test 11/19/16 07:24 Glucose (Fingerstick) 115mg/dL (70-99) Medications Current Medications Multi-Ingredient Mouthwash/Gargle 15 ml 15 ml 1X ONCE SWSW Last administered on 11/17/16 15:21; Start 11/17/16 at 15:15; Stop 11/17/16 at 15:21; Status DC Sodium Chloride (Iv Sodium Chloride 0.9% 1000ml Bag) 1,000 ml @ 1,000 mls/hr Q1H IV Last administered on 11/17/16 15:22; Start 11/17/16 at 15:12; Stop at 16:11; Status DC Ondansetron HCl (Zofran) 4 mg 1X ONCE IV Last administered on 11/17/16 15:22; Start 11/17/16 at 15:15; Stop 11/17/16 at 15:21; Status DC Famotidine (Pepcid) 20 mg 1X ONCE IVP Last administered on 11/17/16 15:22; Start 11/17/16 at 15:15; Stop 11/17/16 at 15:21; Status DC Multi-Ingredient Mouthwash/Gargle 15 ml 15 ml STK-MED ONCE .ROUTE ; Start at 15:18; Stop 11/17/16 at 15:19; Status DC Sodium Chloride (Iv Sodium Chloride 0.9% 1000ml Bag) 1,000 ml @ 1,000 mls/hr 1X ONCE IV Last administered on 11/17/16 16:37; Start 11/17/16 at 16:30; Stop 11/17/16 at 17:29; Status DC Ketorolac Tromethamine (Toradol) 15 mg 1X ONCE IV Last administered on 16:37; Start 11/17/16 at 16:45; Stop 11/17/16 at 16:46; Status DC Ketorolac Tromethamine (Toradol) 30 mg STK-MED ONCE .ROUTE ; Start 11/17/16 at 16 :34; Stop 11/17/16 at 16:35; Status DC Insulin Human Regular (Novolin R Vial) 10 unit 1X ONCE IV Last administered on 11/17/16 18:46; Start 11/17/16 at 18:30; Stop 11/17/16 at 18:31; Status DC Ketorolac Tromethamine (Toradol) 30 mg PRN Q6HRS PRN IV PAIN Last administered on 11/18/16 20:52; Start 11/17/16 at 20:30; Stop 11/19/16 at 23:59 Insulin Detemir (Levemir) 30 units QHS SQ Last administered on 11/18/16 20:59; Start 11/17/16 at 21:00 Insulin Aspart 10 units 10 units TIDAC SQ Last administered on 11/19/16 08:35; Start 11/18/16 at 07:30 Sodium Chloride (Iv Sodium Chloride 0.9% 1000ml Bag) 1,000 ml @ 75 mls/hr [id number] IV Last administered on 11/18/16 22:16; Start 11/17/16 at 21:00 Dextrose 12.5 gm PRN Q15MIN PRN IV SEE COMMENTS; Start 11/17/16 at 20:45 Famotidine (Pepcid) 20 mg BID PO Last administered on 11/19/16 08:28; Start 11/17/16 at 21:00 Diphenhydramine HCl (Benadryl) 50 mg PRN QHS PRN PO INSOMNIA Last administered on 11/18/16 20:51; Start 11/18/16 at 18:30 Active Scripts Active Levemir Flextouch (Insulin Detemir) 100 Unit/1 Ml Insuln.pen 30 Units SQ QHS 30 Days Novolog (Insulin Aspart) 100 Unit/1 Ml Cartridge 10 Units SQ TIDAC 30 Days Reported Levemir Flextouch (Insulin Detemir) 100 Unit/1 Ml Insuln.pen 25 Unit SQ HS Vitals/I & O Vital Sign - Last 24 Hours 11/18/16 11/18/16 11/18/16 11/18/16 11:00 15:00 19:00 20:50 Temp 98.2 97.7 98.1 98.2 97.7 98.1 Pulse 95 91 102 Resp 19 20 20 B/P 126/81 132/98 147/112 Pulse Ox 99 100 100 O2 Delivery Room Air Room Air Room Air Room Air 11/18/16 11/19/16 11/19/16 23:00 03:00 07:00 Temp 98.1 98.1 98.2 98.1 98.1 98.2 Pulse 90 92 90 Resp 18 18 18 B/P 145/86 140/103 144/108 Pulse Ox 98 100 100 O2 Delivery Room Air Room Air Room Air Intake and Output 11/18/16 11/18/16 11/19/16 15:00 23:00 07:00 Intake Total 2350 ml Balance 2350 ml JANAY NEGRETE MD Nov 19, 2016 09:16
[2016-11-19] MEDS ORDERED: MAGNESIUM SULFATE 4GM 100 ML IV ONE (10:00)
[2016-11-19 11:29] VITALS: BP 143/112
[2016-11-19] MEDS: MORPHINE IR 15 MG TABLET PO PRN ×2 (11:57→18:00)
[2016-11-19] MEDS: IV NORMAL SALINE 1000ML BAG 1,000 ML IV SCH (12:18)
[2016-11-19 15:00] VITALS: BP 130/94
[2016-11-19 19:00] VITALS: BP 126/91
[2016-11-19] MEDS: INSULIN DETEMIR 300 UNITS/3 ML INSULN.PEN. SQ SCH (20:52)
[2016-11-19 23:00] VITALS: BP 126/87
[2016-11-20] MEDS: MORPHINE IR 15 MG TABLET PO PRN ×3 (01:01→17:55)
[2016-11-20 03:04] VITALS: BP 120/90
[2016-11-20] MEDS: TRAMADOL 50 MG TABLET. PO PRN ×2 (04:18→22:13)
[2016-11-20] MEDS: IV NORMAL SALINE 1000ML BAG 1,000 ML IV SCH ×2 (04:20→15:40)
[2016-11-20 07:00] VITALS: BP 145/79
[2016-11-20] MEDS: INSULIN ASPART 300 UNITS/3 ML INSULN.PEN SQ SCH ×3 (07:30→18:20)
[2016-11-20] MEDS: FAMOTIDINE 20 MG TABLET. PO SCH ×2 (09:30→22:13)
[2016-11-20] MEDS ORDERED: INSU100I27 SQ ×2 (09:54)
[2016-11-20] MEDS ORDERED: INSU100C4 SQ (09:54)
[2016-11-20 11:30] VITALS: BP 143/109
[2016-11-20 14:17] VITALS: BP 137/97
--- NOTE | 2016-11-20 15:32 | PDOC ---
PROGRESS NOTES Chief Complaint Chief Complaint 1. Hyperglycemia: Dm1, insulin 2. Abd pain: acute on chroniic 3. nausea: improved, early diabetic gastroparesis 4. depression - ongoing 5. Dispo: emotional distress, anxiety state, social issues History of Present Illness History of Present Illness DC when she appears able to take care of herself she has ongoing pain and weakness, does not feel well Vitals Vitals Vital Signs Date Time Temp Pulse Resp B/P Pulse Ox O2 Delivery O2 Flow Rate FiO2 11/20/16 14:17 98.0 93 20 137/97 93 Room Air 98.0 11/20/16 07:00 5.0 Physical Exam General: Alert, Oriented X3, Cooperative Heart: Regular rate Lungs: Clear Abdomen: Normal bowel sounds, Soft, No tenderness Extremities: No edema Skin: No rashes Labs LABS Laboratory Tests Test 11/19/16 15:48 11/19/16 20:26 11/20/16 08:00 11/20/16 08:19 Glucose (Fingerstick) 86mg/dL (70-99) 172mg/dL (70-99) 48mg/dL (70-99) 70mg/dL (70-99) Test 11/20/16 09:28 11/20/16 11:37 11/20/16 14:43 Glucose (Fingerstick) 134mg/dL (70-99) 156mg/dL (70-99) 205mg/dL (70-99) Assessment and Plan Assessmemt and Plan Problems Medical Problems: (1) DKA, type 1 Status: Acute (2) Epigastric abdominal pain Status: Acute (3) Hyperglycemia Status: Acute (4) Nausea and vomiting Status: Acute (5) Suicidal ideation Status: Acute Problems: Comment Review of Relevant I have reviewed the following items cristela (where applicable) has been applied. Labs Laboratory Tests Test 11/18/16 16:41 11/18/16 20:49 11/19/16 03:17 11/19/16 07:24 Glucose (Fingerstick) 249mg/dL (70-99) 271mg/dL (70-99) 115mg/dL (70-99) White Blood Count 7.7x10^3/uL (4.0-11.0) Red Blood Count 3.82x10^6/uL (3.50-5.40) Hemoglobin 11.5g/dL (12.0-15.5) Hematocrit 33.8% (36.0-47.0) Mean Corpuscular Volume 89fL (79-100) Mean Corpuscular Hemoglobin 30pg (25-35) Mean Corpuscular Hemoglobin Concent 34g/dL (31-37) Red Cell Distribution Width 12.7% (11.5-14.5) Platelet Count 320x10^3/uL (140-400) Neutrophils (%) (Auto) 43% (31-73) Lymphocytes (%) (Auto) 49% (24-48) Monocytes (%) (Auto) 6% (0-9) Eosinophils (%) (Auto) 1% (0-3) Basophils (%) (Auto) 1% (0-3) Neutrophils # (Auto) 3.3x10^3uL (1.8-7.7) Lymphocytes # (Auto) 3.8x10^3/uL (1.0-4.8) Monocytes # (Auto) 0.5x10^3/uL (0.0-1.1) Eosinophils # (Auto) 0.1x10^3/uL (0.0-0.7) Basophils # (Auto) 0.1x10^3/uL (0.0-0.2) Sodium Level 143mmol/L (136-145) Potassium Level 3.7mmol/L (3.5-5.1) Chloride Level 110mmol/L (98-107) Carbon Dioxide Level 24mmol/L (21-32) Anion Gap 9 (6-14) Blood Urea Nitrogen 12mg/dL (7-20) Creatinine 0.5mg/dL (0.6-1.0) Estimated GFR (Cockcroft-Gault) 186.7 Glucose Level 246mg/dL (70-99) Calcium Level 8.4mg/dL (8.5-10.1) Magnesium Level 1.4mg/dL (1.8-2.4) Test 11/19/16 11:22 11/19/16 15:48 11/19/16 20:26 11/20/16 08:00 Glucose (Fingerstick) 87mg/dL (70-99) 86mg/dL (70-99) 172mg/dL (70-99) 48mg/dL (70-99) Test 11/20/16 08:19 11/20/16 09:28 11/20/16 11:37 11/20/16 14:43 Glucose (Fingerstick) 70mg/dL (70-99) 134mg/dL (70-99) 156mg/dL (70-99) 205mg/dL (70-99) Laboratory Tests Test 11/19/16 15:48 11/19/16 20:26 11/20/16 08:00 11/20/16 08:19 Glucose (Fingerstick) 86mg/dL (70-99) 172mg/dL (70-99) 48mg/dL (70-99) 70mg/dL (70-99) Test 11/20/16 09:28 11/20/16 11:37 11/20/16 14:43 Glucose (Fingerstick) 134mg/dL (70-99) 156mg/dL (70-99) 205mg/dL (70-99) Medications Current Medications Multi-Ingredient Mouthwash/Gargle 15 ml 15 ml 1X ONCE SWSW Last administered on 11/17/16 15:21; Start 11/17/16 at 15:15; Stop 11/17/16 at 15:21; Status DC Sodium Chloride (Iv Sodium Chloride 0.9% 1000ml Bag) 1,000 ml @ 1,000 mls/hr Q1H IV Last administered on 11/17/16 15:22; Start 11/17/16 at 15:12; Stop at 16:11; Status DC Ondansetron HCl (Zofran) 4 mg 1X ONCE IV Last administered on 11/17/16 15:22; Start 11/17/16 at 15:15; Stop 11/17/16 at 15:21; Status DC Famotidine (Pepcid) 20 mg 1X ONCE IVP Last administered on 11/17/16 15:22; Start 11/17/16 at 15:15; Stop 11/17/16 at 15:21; Status DC Multi-Ingredient Mouthwash/Gargle 15 ml 15 ml STK-MED ONCE .ROUTE ; Start at 15:18; Stop 11/17/16 at 15:19; Status DC Sodium Chloride (Iv Sodium Chloride 0.9% 1000ml Bag) 1,000 ml @ 1,000 mls/hr 1X ONCE IV Last administered on 11/17/16 16:37; Start 11/17/16 at 16:30; Stop 11/17/16 at 17:29; Status DC Ketorolac Tromethamine (Toradol) 15 mg 1X ONCE IV Last administered on 16:37; Start 11/17/16 at 16:45; Stop 11/17/16 at 16:46; Status DC Ketorolac Tromethamine (Toradol) 30 mg STK-MED ONCE .ROUTE ; Start 11/17/16 at 16 :34; Stop 11/17/16 at 16:35; Status DC Insulin Human Regular (Novolin R Vial) 10 unit 1X ONCE IV Last administered on 11/17/16 18:46; Start 11/17/16 at 18:30; Stop 11/17/16 at 18:31; Status DC Ketorolac Tromethamine (Toradol) 30 mg PRN Q6HRS PRN IV PAIN Last administered on 11/18/16 20:52; Start 11/17/16 at 20:30; Stop 11/19/16 at 23:59; Status DC Insulin Detemir (Levemir) 30 units QHS SQ Last administered on 11/19/16 20:52; Start 11/17/16 at 21:00 Insulin Aspart 10 units 10 units TIDAC SQ Last administered on 11/20/16 12:11; Start 11/18/16 at 07:30 Sodium Chloride (Iv Sodium Chloride 0.9% 1000ml Bag) 1,000 ml @ 75 mls/hr [id number] IV Last administered on 11/20/16 04:20; Start 11/17/16 at 21:00 Dextrose 12.5 gm PRN Q15MIN PRN IV SEE COMMENTS; Start 11/17/16 at 20:45 Famotidine (Pepcid) 20 mg BID PO Last administered on 11/20/16 09:30; Start 11/17/16 at 21:00 Diphenhydramine HCl 50 mg 50 mg PRN QHS PRN PO INSOMNIA Last administered on 20:51; Start 11/18/16 at 18:30 Magnesium Sulfate/ Dextrose (Magnesium Sulfate PREMIX 4GM) 100 ml @ 25 mls/hr 1X ONCE IV Last administered on 11/19/16 11:58; Start 11/19/16 at 10:00; Stop 11/19/16 at 13:59; Status DC Tramadol HCl (Ultram) 50 mg PRN Q6HRS PRN PO PAIN Last administered on 04:18; Start 11/19/16 at 09:15 Morphine Sulfate (Morphine Ir) 15 mg PRN Q6HRS PRN PO PAIN Last administered on 11/20/16 12:09; Start 11/19/16 at 09:15 Active Scripts Active Levemir Flextouch (Insulin Detemir) 100 Unit/1 Ml Insuln.pen 25 Unit SQ HS 30 Days Levemir Flextouch (Insulin Detemir) 100 Unit/1 Ml Insuln.pen 30 Units SQ QHS 30 Days Novolog (Insulin Aspart) 100 Unit/1 Ml Cartridge 10 Units SQ TIDAC 30 Days Vitals/I & O Vital Sign - Last 24 Hours 11/19/16 11/19/16 11/19/16 11/19/16 18:00 19:00 20:00 23:00 Temp 97.4 97.7 97.4 97.7 Pulse 96 95 Resp 20 18 18 B/P 126/91 126/87 Pulse Ox 100 100 93 O2 Delivery Room Air Room Air Room Air Room Air 11/20/16 11/20/16 11/20/16 11/20/16 01:01 02:01 03:04 04:18 Temp 97.6 97.6 Pulse 93 Resp 20 18 B/P 120/90 Pulse Ox 93 100 100 100 O2 Delivery Room Air Room Air Room Air 11/20/16 11/20/16 11/20/16 11/20/16 05:18 07:00 08:00 09:30 Temp 98.0 98.0 Pulse 75 Resp 22 B/P 145/79 Pulse Ox 100 97 O2 Delivery Room Air Nasal Cannula Room Air Room Air O2 Flow Rate 5.0 11/20/16 11/20/16 11/20/16 11/20/16 11:30 12:09 13:09 14:17 Temp 97.6 98.0 97.6 98.0 Pulse 89 93 Resp 22 22 20 20 B/P 143/109 137/97 Pulse Ox 99 93 O2 Delivery Room Air Room Air Room Air Room Air Intake and Output 11/19/16 11/19/16 11/20/16 15:00 23:00 07:00 Intake Total 500 ml 1250 ml 1660 ml Balance 500 ml 1250 ml 1660 ml JANAY NEGRETE MD Nov 20, 2016 15:32
[2016-11-20 19:00] VITALS: BP 139/97
[2016-11-20] MEDS: DIPHENHYDRAMINE HCL 25 MG CAPSULE PO PRN (22:13)
[2016-11-20] MEDS: INSULIN DETEMIR 300 UNITS/3 ML INSULN.PEN. SQ SCH (22:21)
[2016-11-20 23:00] VITALS: BP 145/97
[2016-11-21 03:00] VITALS: BP 142/98
[2016-11-21] MEDS: IV NORMAL SALINE 1000ML BAG 1,000 ML IV SCH (04:08)
[2016-11-21] MEDS: MORPHINE IR 15 MG TABLET PO PRN ×2 (04:15→14:36)
[2016-11-21 07:00] VITALS: BP 116/71
[2016-11-21] MEDS: INSULIN ASPART 300 UNITS/3 ML INSULN.PEN SQ SCH ×2 (07:30→12:19)
[2016-11-21] MEDS: TRAMADOL 50 MG TABLET. PO PRN (07:46)
[2016-11-21] MEDS: FAMOTIDINE 20 MG TABLET. PO SCH (07:46)
[2016-11-21 11:00] VITALS: BP 129/82
[2016-11-21 15:00] VITALS: BP 120/91
== END 2016-11-21 18:00 | disposition home or self-care (01) | DRG 638 ==
LOC: ER 14:16 → 5 NORTH 18:15
PROVIDERS: ADMIT Internal Medicine Hematology & Oncology; ATTEND Internal Medicine Hematology & Oncology
DX: E10.65 Type 1 diabetes mellitus with hyperglycemia (principal); R45.851 Suicidal ideations; E10.43 Type 1 diabetes mellitus with diabetic autonomic (poly)neuropathy; K31.84 Gastroparesis; I10 Essential (primary) hypertension; F31.9 Bipolar disorder, unspecified; F12.90 Cannabis use, unspecified, uncomplicated; Z82.49 Family history of ischemic heart disease and other diseases of the circulatory system; Z83.3 Family history of diabetes mellitus
CPT/HCPCS: 36415; 80048; 80076; 81001; 81025; 82947; 83690; 83735; 85027; 96361; 96374; 96375; G0480; G0481; G6038; J1815; J1885; J2405; J3475; J7030; J7042; Q0163; S0028; 80196; 99285-25

== ENCOUNTER 2016-12-04 11:45 | Inpatient (IN) | payer SELFPAY ==
[2016-12-04] VITALS (8 sets, daily range): BP systolic 93–129; BP diastolic 58–82
[~2016-12-04] VITALS: Ht 160 cm; Wt 51.9 kg
[2016-12-04] MEDS ORDERED: IV NORMAL SALINE 1000ML BAG 1,000 ML IV ONE (12:15)
[2016-12-04 12:45] LABS: BILIRUBIN,URINE NEGATIVE (NEG); GLUCOSE,URINE >=1000 mg/dL (NEG); NITRITE,URINE NEGATIVE (NEG); PH,URINE 5.5; PROTEIN,URINE NEGATIVE (NEG-TRACE); UROBILINOGEN,URINE 0.2 mg/dL (0.2 mg/dL)
[2016-12-04 13:01] LABS: BACTERIA,URINE 0 /HPF (0-FEW); RBC,URINE 0 /HPF (0-2); SQUAMOUS EPITHELIAL CELL,UR MOD /LPF; WBC,URINE OCC /HPF (0-4)
--- NOTE | 2016-12-04 13:09 | PHYS DOC ---
Past Medical History Past Medical History: Diabetes-Type I Additional Past Medical Histor: MISCARRIAGES Past Surgical History: Other Additional Past Surgical Histo: I&D abscess groin Alcohol Use: Occasionally Drug Use: Other Social History Narrative: 'sober' Adult General Chief Complaint Chief Complaint: NAUSEA/VOMITING/DIARRHA HPI HPI 21-year-old female presenting to the emergency department with chest pain shortness of breath abdominal pain and reporting high blood sugars at home. She states her blood sugars were around 350 at home today. She's had nausea with one episode of nonbilious vomiting. Her abdominal pain is generalized without a focus. Her chest pain is sharp nonradiating moderate and worse with deep inspiration. Review of systems is negative for fevers chills polyuria or dysuria. All other review of systems is negative unless otherwise noted in history of present illness. Review of Systems Review of Systems SEE ABOVE. Current Medications Current Medications Current Medications Medications (Trade) Dose Ordered Sig/Bakari Start Time Stop Time Status Last Admin Dose Admin Hydromorphone HCl (Dilaudid) 0.5 mg PRN Q1HR PRN 12/04/16 14:00 Ondansetron HCl (Zofran) 4 mg PRN Q30MIN PRN 12/04/16 13:15 12/04/16 13:08 4 MG Sodium Chloride (Iv Sodium Chloride 0.9% 1000ml Bag) 1,000 ml @ 1,000 mls/hr 1X ONCE 12/04/16 12:15 12/04/16 13:14 DC 12/04/16 12:46 1,000 MLS/HR Allergies Allergies Allergies Coded Allergies Type Severity Reaction Last Updated Verified No Known Medication Allergies Allergy Unknown 09/10/16 Yes Physical Exam Physical Exam Constitutional: Well developed, well nourished, no acute distress, non-toxic appearance. HENT: Normocephalic, atraumatic, bilateral external ears normal, oropharynx moist, no oral exudates, nose normal. [] Eyes: PERRLA, EOMI, conjunctiva normal, no discharge. Neck: Normal range of motion, no tenderness, supple, no stridor. [] Cardiovascular: Tachycardic rate with a regular rhythm. No murmur. Lungs & Thorax: Bilateral breath sounds clear to auscultation Abdomen: Soft nontender abdomen without rebound tenderness or guarding present. Negative McBurneys point. Negative Mcleod sign. No ecchymosis present. Skin: Warm, dry, no erythema, no rash. [] Back: No tenderness, no CVA tenderness. Extremities: No tenderness, no cyanosis, no clubbing, ROM intact, no edema. [] Neurologic: Alert and oriented X 3, normal motor function, normal sensory function, no focal deficits noted. Psychologic: Affect normal, judgement normal, mood normal. [] Current Patient Data Vital Signs Vital Signs Date Time Temp Pulse Resp B/P Pulse Ox O2 Delivery O2 Flow Rate FiO2 12/04/16 13:06 118 21 124/76 100 Room Air 12/04/16 12:21 98.3 98.3 Lab Values Laboratory Tests Test 12/04/16 12:20 12/04/16 12:22 12/04/16 13:23 Urine Collection Type Unknown Urine Color Yellow Urine Clarity Clear Urine pH 5.5 Urine Specific [place] >=1.030 Urine Protein Negativemg/dL (NEG-TRACE) Urine Glucose (UA) >=1000mg/dL (NEG) Urine Ketones (Stick) >=80mg/dL (NEG) Urine Blood Negative (NEG) Urine Nitrite Negative (NEG) Urine Bilirubin Negative (NEG) Urine Urobilinogen Dipstick 0.2mg/dL (0.2 mg/dL) Urine Leukocyte Esterase Negative (NEG) Urine RBC 0/HPF (0-2) Urine WBC Occ/HPF (0-4) Urine Squamous Epithelial Cells Mod/LPF Urine Bacteria 0/HPF (0-FEW) POC Urine HCG, Qualitative Hcg negative (Negative) White Blood Count 13.0x10^3/uL (4.0-11.0) H Red Blood Count 4.69x10^6/uL (3.50-5.40) Hemoglobin 13.9g/dL (12.0-15.5) Hematocrit 44.9% (36.0-47.0) Mean Corpuscular Volume 96fL (79-100) Mean Corpuscular Hemoglobin 30pg (25-35) Mean Corpuscular Hemoglobin Concent 31g/dL (31-37) Red Cell Distribution Width 13.8% (11.5-14.5) Platelet Count 451x10^3/uL (140-400) H Neutrophils (%) (Auto) 80% (31-73) H Lymphocytes (%) (Auto) 18% (24-48) L Monocytes (%) (Auto) 2% (0-9) Eosinophils (%) (Auto) 0% (0-3) Basophils (%) (Auto) 1% (0-3) Neutrophils # (Auto) 10.3x10^3uL (1.8-7.7) H Lymphocytes # (Auto) 2.3x10^3/uL (1.0-4.8) Monocytes # (Auto) 0.3x10^3/uL (0.0-1.1) Eosinophils # (Auto) 0.0x10^3/uL (0.0-0.7) Basophils # (Auto) 0.1x10^3/uL (0.0-0.2) Sodium Level 140mmol/L (136-145) Potassium Level 5.3mmol/L (3.5-5.1) H Chloride Level 100mmol/L (98-107) Carbon Dioxide Level < 5mmol/L (21-32) *L Anion Gap (6-14) Blood Urea Nitrogen 20mg/dL (7-20) Creatinine 1.0mg/dL (0.6-1.0) Estimated GFR (Cockcroft-Gault) 83.9 Glucose Level 674mg/dL (70-99) *H Calcium Level 9.0mg/dL (8.5-10.1) Total Bilirubin 0.7mg/dL (0.2-1.0) Direct Bilirubin 0.1mg/dL (0.0-0.2) Aspartate Amino Transferase (AST) 19U/L (15-37) Alanine Aminotransferase (ALT) 36U/L (14-59) Alkaline Phosphatase 96U/L (46-116) Troponin I Quantitative < 0.017ng/mL (0.000-0.055) Total Protein 6.9g/dL (6.4-8.2) Albumin 3.5g/dL (3.4-5.0) Lipase 74U/L (73-393) Laboratory Tests 12/04/16 13:23 Laboratory Tests 12/04/16 13:23 EKG EKG EKG shows sinus tachycardia. [place] normal. Intervals are within normal limits. Variable baseline present. ST segments congruent. [] Radiology/Procedures Radiology/Procedures [] Course & Med Decision Making Course & Med Decision Making Pertinent Labs and Imaging studies reviewed. (See chart for details) [] 21-year-old female presenting to the emergency department today with chest pain abdominal pain nausea vomiting and hyperglycemia. On examination the patient was afebrile with a tachycardic rate. IV established and IV fluids administered. Otherwise physical exam was unremarkable. Blood work obtained which showed significant hyperglycemia with acidosis. ABG ordered. Insulin administered along with an insulin drip. Potassium 5.3. Urine not suggestive of infection. The patient was then admitted to our hospital for further evaluation treatment workup and care. Dragon Disclaimer Dragon Disclaimer This electronic medical record was generated, in whole or in part, using a voice recognition dictation system. Departure Departure Impression: Primary Impression: DKA (diabetic ketoacidoses) Disposition: ADMITTED INPATIENT Admitting Physician: Augusto Lovelace Condition: STABLE Referrals: NO PCP (PCP) Critical Care Time Critical care time was [40] minutes exclusive of procedures. Time was spent evaluating the patient, ordering the titration of insulin, IV fluid resuscitation, discussing with family provider, and documenting. MOUNA HELLER MD Dec 04, 2016 13:09
[2016-12-04] MEDS ORDERED: ONDANSETRON PF 4 MG/2 ML VIAL. IV PRN ×3 (13:15→17:00)
--- NOTE | 2016-12-04 13:16 | EKG ---
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
[2016-12-04 13:46] LABS: BASO # 0.1 x10^3/uL (0.0-0.2); BASO % 1 % (0-3); EOS % 0 % (0-3); HEMATOCRIT 44.9 % (36.0-47.0); HEMOGLOBIN 13.9 g/dL (12.0-15.5); LYMPH # 2.3 x10^3/uL (1.0-4.8); LYMPH % 18 % (24-48); MEAN CORPUSCULAR HEMOGLOBIN 30 pg (25-35); MEAN CORPUSCULAR HGB CONC 31 g/dL (31-37); MEAN CORPUSCULAR VOLUME 96 fL (79-100); MONO % 2 % (0-9); NEUT % 80 % (31-73); PLATELET COUNT 451 x10^3/uL (140-400); RED BLOOD COUNT 4.69 x10^6/uL (3.50-5.40); RED CELL DISTRIBUTION WIDTH 13.8 % (11.5-14.5)
[2016-12-04 13:48] LABS: ALBUMIN 3.5 g/dL (3.4-5.0); ALK PHOS 96 U/L (46-116); ALT (SGPT) 36 U/L (14-59); AST (SGOT) 19 U/L (15-37); BLOOD UREA NITROGEN 20 mg/dL (7-20); CHLORIDE 100 mmol/L (98-107); DIRECT BILIRUBIN 0.1 mg/dL (0.0-0.2); GFR 83.9; POTASSIUM 5.3 mmol/L (3.5-5.1); SODIUM 140 mmol/L (136-145); TOTAL BILIRUBIN 0.7 mg/dL (0.2-1.0); TOTAL PROTEIN 6.9 g/dL (6.4-8.2)
--- NOTE | 2016-12-04 13:48 | RAD ---
Portable chest, 12/04/2016: History: Chest pain, diabetes Comparison is made to a study from 09/29/2016. The heart size and pulmonary vascularity are normal. No pulmonary infiltrates are seen. There is no evidence of pleural fluid. Small bilateral cervical ribs are noted. IMPRESSION: No acute cardiopulmonary abnormality is detected.
[2016-12-04 13:55] LABS: CARBON DIOXIDE < 5 mmol/L (21-32); GLUCOSE 674 mg/dL (70-99)
[2016-12-04] MEDS ORDERED: HYDROMORPHONE 2 MG/ML VIAL. IV PRN (14:00)
[2016-12-04] MEDS ORDERED: IV NORMAL SALINE 1000ML BAG 1,000 ML IV SCH ×3 (14:03→17:29)
[2016-12-04] MEDS ORDERED: INSULIN REGULAR 100 UNIT/ML 10ML VIAL. IV ONE (14:15)
[2016-12-04] MEDS ORDERED: INSULIN REGULAR VIAL 150 UNIT in 0.9 % SODIUM CHLORIDE 150ML 150 ML IV PRN ×2 (14:15→17:30)
[2016-12-04] MEDS ORDERED: INSULIN,REGULAR 150 UNIT DRIP 150 ML IV ONE (14:30)
[2016-12-04 14:34] LABS: MAGNESIUM 1.8 mg/dL (1.8-2.4); PHOSPHORUS 5.3 mg/dL (2.6-4.7)
[2016-12-04] MEDS: IV NORMAL SALINE 1000ML BAG 1,000 ML IV SCH ×2 (14:52→19:30)
--- NOTE | 2016-12-04 15:53 | PDOC1 ---
History and Physical Past Medical History Past Medical History PAST MEDICAL HISTORY: Diabetes type 1. Question gastroparesis, history of spontaneous abortions, I and D of groin abscess, hypertension and bipolar disorder. FAMILY HISTORY: Positive for diabetes as well as hypertension on paternal side. On maternal side, mental illness. SOCIAL HISTORY: Currently living with a cousin. Never worked trying to get SSI. No tobacco smoking. Occasional marijuana and occasional alcohol use. ALLERGIES: No known drug allergies. MEDICATIONS: MAR reconciled with home medications. Cardiovascular: No pertinent hx Pulmonary: Asthma GI: GERD, Other Heme/Onc: No pertinent hx Hepatobiliary: No pertinent hx Psych: No pertinent hx Rheumatologic: No pertinent hx Infectious disease: No pertinent hx Renal/: No pertinent hx Endocrine: Diabetes Past Surgical History Past Surgical History: No pertinent history Family History Family History: No Significant, Other Social History ALCOHOL: rare Drugs: None, Marijuana Current Problem List Problem List Problems Medical Problems: (1) DKA (diabetic ketoacidoses) Status: Acute Current Medications Current Medications Current Medications Medications (Trade) Dose Ordered Sig/Bakari Start Time Stop Time Status Last Admin Dose Admin Hydromorphone HCl (Dilaudid) 0.5 mg PRN Q1HR PRN 12/04/16 14:00 12/04/16 14:12 0.5 MG Insulin Human Regular 150 ml @ 0 mls/hr 1X ONCE 12/04/16 14:30 12/04/16 14:31 DC 12/04/16 15:15 6.1 MLS/HR Insulin Human Regular 10 unit 10 unit 1X ONCE 12/04/16 14:15 12/04/16 14:16 DC 12/04/16 14:51 10 UNIT Insulin Human Regular/Sodium Chloride (Novolin R Vial/ Iv Normal Saline 150ml) 151.5 ml @ 0 mls/hr CONT PRN PRN 12/04/16 14:15 Morphine Sulfate 2 mg 2 mg PRN Q2HR PRN 12/04/16 14:15 12/05/16 14:14 Ondansetron HCl (Zofran) 4 mg PRN Q8HRS PRN 12/04/16 14:15 12/05/16 14:14 Sodium Chloride (Iv Sodium Chloride 0.9% 1000ml Bag) 1,000 ml @ 150 mls/hr Q6H40M 12/04/16 15:45 Allergies Allergies Allergies Coded Allergies Type Severity Reaction Last Updated Verified No Known Medication Allergies Allergy Unknown 09/10/16 Yes ROS Review of System CONSTITUTIONAL: No fever or chills dehydration EYES: No recent changes SKIN: No rash or itching CARDIOVASCULAR: No chest pain, syncope, palpitations, or edema RESPIRATORY: No SOB or cough GASTROINTESTINAL: nausea, NEUROLOGICAL: No headaches or weakness ENDOCRINE: No cold or heat intolerance GENITOURINARY: No urgency or frequency of urination MUSCULOSKELETAL: No back pain or joint pain LYMPHATICS: No enlarged lymph nodes PSYCHIATRIC: No anxiety or depression Physical Exam Physical Exam GEN.: No apparent distress. Alert and oriented. dehydrated, fatigues HEENT: Head is normocephalic, atraumatic NECK: Supple. no jvd LUNGS: Clear to auscultation. normal airflow HEART: RRR, S1, S2 present. Peripheral pulses intact ABDOMEN: Soft, nontender. Positive bowel sounds. EXTREMITIES: Without any cyanosis. NEUROLOGIC: Normal speech, normal tone PSYCHIATRIC: Normal affect, normal mood. SKIN: No visible skin changes. Vitals Vitals Vital Signs Date Time Temp Pulse Resp B/P Pulse Ox O2 Delivery O2 Flow Rate FiO2 12/04/16 14:36 122 16 106/53 100 Room Air 12/04/16 12:21 98.3 98.3 Labs Labs Laboratory Tests Test 12/04/16 12:20 12/04/16 12:22 12/04/16 13:23 Urine Collection Type Unknown Urine Color Yellow Urine Clarity Clear Urine pH 5.5 Urine Specific [place] >=1.030 Urine Protein Negativemg/dL (NEG-TRACE) Urine Glucose (UA) >=1000mg/dL (NEG) Urine Ketones (Stick) >=80mg/dL (NEG) Urine Blood Negative (NEG) Urine Nitrite Negative (NEG) Urine Bilirubin Negative (NEG) Urine Urobilinogen Dipstick 0.2mg/dL (0.2 mg/dL) Urine Leukocyte Esterase Negative (NEG) Urine RBC 0/HPF (0-2) Urine WBC Occ/HPF (0-4) Urine Squamous Epithelial Cells Mod/LPF Urine Bacteria 0/HPF (0-FEW) Bedside Urine HCG, Qualitative Hcg negative (Negative) White Blood Count 13.0x10^3/uL (4.0-11.0) Red Blood Count 4.69x10^6/uL (3.50-5.40) Hemoglobin 13.9g/dL (12.0-15.5) Hematocrit 44.9% (36.0-47.0) Mean Corpuscular Volume 96fL (79-100) Mean Corpuscular Hemoglobin 30pg (25-35) Mean Corpuscular Hemoglobin Concent 31g/dL (31-37) Red Cell Distribution Width 13.8% (11.5-14.5) Platelet Count 451x10^3/uL (140-400) Neutrophils (%) (Auto) 80% (31-73) Lymphocytes (%) (Auto) 18% (24-48) Monocytes (%) (Auto) 2% (0-9) Eosinophils (%) (Auto) 0% (0-3) Basophils (%) (Auto) 1% (0-3) Neutrophils # (Auto) 10.3x10^3uL (1.8-7.7) Lymphocytes # (Auto) 2.3x10^3/uL (1.0-4.8) Monocytes # (Auto) 0.3x10^3/uL (0.0-1.1) Eosinophils # (Auto) 0.0x10^3/uL (0.0-0.7) Basophils # (Auto) 0.1x10^3/uL (0.0-0.2) Sodium Level 140mmol/L (136-145) Potassium Level 5.3mmol/L (3.5-5.1) Chloride Level 100mmol/L (98-107) Carbon Dioxide Level < 5mmol/L (21-32) Anion Gap (6-14) Blood Urea Nitrogen 20mg/dL (7-20) Creatinine 1.0mg/dL (0.6-1.0) Estimated GFR (Cockcroft-Gault) 83.9 Glucose Level 674mg/dL (70-99) Calcium Level 9.0mg/dL (8.5-10.1) Phosphorus Level 5.3mg/dL (2.6-4.7) Magnesium Level 1.8mg/dL (1.8-2.4) Total Bilirubin 0.7mg/dL (0.2-1.0) Direct Bilirubin 0.1mg/dL (0.0-0.2) Aspartate Amino Transf (AST/SGOT) 19U/L (15-37) Alanine Aminotransferase (ALT/SGPT) 36U/L (14-59) Alkaline Phosphatase 96U/L (46-116) Troponin I Quantitative < 0.017ng/mL (0.000-0.055) Total Protein 6.9g/dL (6.4-8.2) Albumin 3.5g/dL (3.4-5.0) Lipase 74U/L (73-393) Laboratory Tests Test 12/04/16 12:20 12/04/16 12:22 12/04/16 13:23 Urine Collection Type Unknown Urine Color Yellow Urine Clarity Clear Urine pH 5.5 Urine Specific [place] >=1.030 Urine Protein Negativemg/dL (NEG-TRACE) Urine Glucose (UA) >=1000mg/dL (NEG) Urine Ketones (Stick) >=80mg/dL (NEG) Urine Blood Negative (NEG) Urine Nitrite Negative (NEG) Urine Bilirubin Negative (NEG) Urine Urobilinogen Dipstick 0.2mg/dL (0.2 mg/dL) Urine Leukocyte Esterase Negative (NEG) Urine RBC 0/HPF (0-2) Urine WBC Occ/HPF (0-4) Urine Squamous Epithelial Cells Mod/LPF Urine Bacteria 0/HPF (0-FEW) Bedside Urine HCG, Qualitative Hcg negative (Negative) White Blood Count 13.0x10^3/uL (4.0-11.0) Red Blood Count 4.69x10^6/uL (3.50-5.40) Hemoglobin 13.9g/dL (12.0-15.5) Hematocrit 44.9% (36.0-47.0) Mean Corpuscular Volume 96fL (79-100) Mean Corpuscular Hemoglobin 30pg (25-35) Mean Corpuscular Hemoglobin Concent 31g/dL (31-37) Red Cell Distribution Width 13.8% (11.5-14.5) Platelet Count 451x10^3/uL (140-400) Neutrophils (%) (Auto) 80% (31-73) Lymphocytes (%) (Auto) 18% (24-48) Monocytes (%) (Auto) 2% (0-9) Eosinophils (%) (Auto) 0% (0-3) Basophils (%) (Auto) 1% (0-3) Neutrophils # (Auto) 10.3x10^3uL (1.8-7.7) Lymphocytes # (Auto) 2.3x10^3/uL (1.0-4.8) Monocytes # (Auto) 0.3x10^3/uL (0.0-1.1) Eosinophils # (Auto) 0.0x10^3/uL (0.0-0.7) Basophils # (Auto) 0.1x10^3/uL (0.0-0.2) Sodium Level 140mmol/L (136-145) Potassium Level 5.3mmol/L (3.5-5.1) Chloride Level 100mmol/L (98-107) Carbon Dioxide Level < 5mmol/L (21-32) Anion Gap (6-14) Blood Urea Nitrogen 20mg/dL (7-20) Creatinine 1.0mg/dL (0.6-1.0) Estimated GFR (Cockcroft-Gault) 83.9 Glucose Level 674mg/dL (70-99) Calcium Level 9.0mg/dL (8.5-10.1) Phosphorus Level 5.3mg/dL (2.6-4.7) Magnesium Level 1.8mg/dL (1.8-2.4) Total Bilirubin 0.7mg/dL (0.2-1.0) Direct Bilirubin 0.1mg/dL (0.0-0.2) Aspartate Amino Transf (AST/SGOT) 19U/L (15-37) Alanine Aminotransferase (ALT/SGPT) 36U/L (14-59) Alkaline Phosphatase 96U/L (46-116) Troponin I Quantitative < 0.017ng/mL (0.000-0.055) Total Protein 6.9g/dL (6.4-8.2) Albumin 3.5g/dL (3.4-5.0) Lipase 74U/L (73-393) VTE Prophylaxis Ordered VTE Prophylaxis Devices: No VTE Pharmacological Prophylaxi: Yes MARKUS CHANG MD Dec 04, 2016 15:53
--- NOTE | 2016-12-04 16:24 | ACF ---
Admission Forms Criteria GENERAL ADMISSION CRITERIA (Place 'X' for any and all applicable criteria): Admission is indicated for ANY ONE of the following: [ ]I. Hemodynamic instability as indicated by ANY ONE of the following(1)(2) (3)(4)(5): [ ]a) Vital sign abnormality not readily corrected by appropriate treatment within 12 to 24 hours indicated by ANY ONE of the following: [ ]i) Hypotension [ ]ii) Symptomatic Tachycardia unresponsive to treatment (eg , analgesia, fluids, sedation as indicated) [ ]iii) Orthostatic vital sign changes unresponsive to treatment (eg, fluids) [ ]b) Vital sign abnormality that is severe indicated by ANY ONE of the following: [ ]i) Inadequate perfusion indicated by ANY ONE of the following: [ ]1) Lactic acidosis (greater than 2 mmol/L) [ ]2) New abnormal capillary refill (greater than 3 seconds) [ ]3) Other metabolic acidosis (arterial pH less than 7.35) not otherwise explained [ ]4) Reduced urine output [ ]5) Altered mental status [ ]6) Myocardial Ischemia [ ]v) Mean arterial pressure[A] less than 60 mm Hg [ ]vi) Mean arterial pressure[A] less than 70 mm Hg after 30 minutes of appropriate treatment (eg, fluid resuscitation) [ ]vii) IV inotropic or vasopressor medication required to maintain adequate blood pressure or perfusion [ ]viii) Sustained heart rate greater than 120 beats per minute in adult or child 6 years or older[B]] [ ]II. Hypertension requiring inpatient treatment as indicated by ANY ONE of the following(6)(7)(8): [ ]a) SBP greater than 220 mm Hg or DBP greater than 120 mm Hg despite treatment [ ]b) SBP greater than 140 mm Hg or DBP greater than 100 mm Hg with evidence of acute end organ damage as indicated by ANY ONE of the following: [ ]i) Encephalopathy [ ]ii) Acute renal failure as indicated by new onset of ANY ONE of the following(9)(10)(11)(12)(13): [ ]1) A 3-fold rise in serum creatinine from baseline [ ]2) Serum creatinine greater than 4 mg/dL ( 354 micromoles/L) with acute rise greater than 0.5 mg/dL (44.2 micromoles/L) [ ]3) Reduction of more than 75% in estimated glomerular filtration rate from baseline [ ]4) Estimated glomerular filtration rate less than 35 mL/min/1.73m2 (0.59 mL/sec/1.73m2) in child up to 18 years of age [ ]5) Cessation of urine output indicated by ALL of the following: [ ]A. Adequate volume status [ ]B. Inadequate urine output as indicated by ANY ONE of the following: [ ]a. Urine output less than 0.3 mL/kg/hr for 24 hours [ ]b. Anuria (urine output less than 0.1 mL/kg/hr) for 12 hours [ ]iii) Aortic dissection [ ]iv) Myocardial ischemia [ ]v) Left ventricular heart failure [ ]vi) Retinal hemorrhage [ ]vii) Other significant finding [ ]c) Hypertension in child requiring inpatient treatment as indicated by ALL of the following(14)(15)(16): [ ]i) Outpatient treatment not effective, not available, or not appropriate [ ]ii) SBP or DBP greater than 95th percentile for age [ ]iii) Evidence of acute end organ damage as indicated by ANY ONE of the following: [ ]1) Altered mental status [ ]2) Acute renal failure as indicated by new onset of ANY ONE of the following(9)(10)(11)(12)(13): [ ]A. A 3-fold rise in serum creatinine from baseline [ ]B. Serum creatinine greater than 4 mg/dL (354 micromoles/L) with acute rise greater than 0.5 mg/dL (44.2 micromoles/L) [ ]C. Reduction of more than 75% in estimated glomerular filtration rate from baseline [ ]D. Estimated glomerular filtration rate less than 35 mL/min/1.73m2 (0.59 mL/sec/1.73m2)in child up to 18 years of age [ ]E. Cessation of urine output indicated by ALL of the following: [ ]a. Adequate volume status [ ]b. Inadequate urine output as indicated by ANY ONE of the following: [ ]1) Urine output less than 0.3 mL/kg/hr for 24 hours [ ]2) Anuria (urine output less than 0.1 mL/kg/hr) for 12 hours [ ]3) Severe headache [ ]4) Visual disturbance [ ]5) Retinal hemorrhage [ ]6) Other significant finding [ ]III. Acute cardiac or peripheral ischemia as indicated by ANY ONE of the following: [ ]a) Acute coronary syndrome(17)(18) [ ]b) Acute peripheral ischemia (eg, pulseless, cool, mottled, or cyanotic extremity)(19) [ ]IV. Cardiac arrhythmias or findings of immediate concern indicated by ANY ONE of the following(20)(21): [ ]a) Heart rhythms that are inherently dangerous or unstable indicated by ANY ONE of the following(22)(23)(24): [ ]i) Resuscitated ventricular fibrillation or cardiac arrest [ ]ii) Ventricular escape rhythm [ ]iii) Sustained ventricular tachycardia (30 seconds or more of ventricular rhythm at greater than 100 beats per minute) [ ]iv) Nonsustained ventricular tachycardia and ANY ONE of the following: [ ]1) Suspected cardiac ischemia as cause or consequence of ventricular tachycardia [ ]2) In setting of acute myocarditis [ ]b) Unstable cardiac conduction defects indicated by ANY ONE of the following(24)(25)(26): [ ]i) Type II second-degree atrioventricular block [ ]ii) Third-degree atrioventricular block [ ]iii) New-onset left bundle branch block with suspected myocardial ischemia [ ]c) Any heart rhythm and ANY ONE of the following(22)(23)(27)(28)( 29): [ ] i) Continuous long-term ECG monitoring needed (eg, initiation of drug requiring monitoring for more than 24 hours) [ ] ii) Patient has automatic implanted cardioverter defibrillator that is repeatedly firing, malfunctioning, or in need of immediate adjustment of settings beyond the scope of ambulatory or observation care. [ ]d) Heart rhythms of concern due to ANY ONE of the following: [ ]i) Hypotension [ ]ii) Respiratory distress [ ]iii) Association with other significant symptoms (eg, bradycardia with syncope or ongoing dizziness, supraventricular tachycardia with chest pain) (27)(28) (30) [ ] V. Severe heart failure as indicated by ANY ONE of the following ( 31)(32): [ ]a) Respiratory distress [ ]b) Hypotension [ ]c) Anasarca (refractory to outpatient therapy) [ ]d) Cardiac arrhythmias of immediate concern [ ]e) Myocardial ischemia [ ]. Respiratory abnormalities, including ANY ONE of the following(33)(34) (35)(36): [ ]a) Respiratory rate greater than 30 breaths per minute unresponsive to treatment [A] [ ]b) New saturation of arterial oxygen less than 90% [ ]c) New partial pressure of carbon dioxide greater than 44 mm Hg ( 5.9 kPa) [ ]d) Supplemental oxygen or respiratory treatments needed that are new or not performable at other levels of care [ ]e) New-onset cyanosis [ ]f) Inability to protect airway [ ]g) Chronic lung disease with severe deterioration (not responsive to emergency and observation care treatment as appropriate) as indicated by ANY ONE of the following(34)(36 ): [ ]i) SaO2 5% below baseline in patient with chronic hypoxemia [ ]ii) New requirement for supplemental oxygen to keep SaO2 at baseline or acceptable level [ ]iii) Required supplemental oxygen performable only in acute inpatient setting [ ]iv) Severe airflow or ventilation abnormalities [ ]v) Previously mobile patient unable to walk between rooms [ ]vi Inability to eat or sleep due to dyspnea [ ]vii) Rapid rate of exacerbation onset [ ]viii) Altered mental status ]VII. Severe airflow or ventilation abnormalities (not responsive to emergency and observation care treatment as appropriate) as indicated by ANY ONE of the following(33)(34)(35)(37): [ ]a) PCO2 greater than 42 mm Hg (5.6 kPa) and pH less than 7.35 (new ) [ ]b) Documented PCO2 increased more than 5 mm Hg (0.7 kPa) from disease baseline [ ]c) Airflow measurements [B] less than 60% of previous best or predicted (eg, peak expiratory flow rate less than 300 L/minute) despite intensive emergent treatment [C] [ ]d) Required respiratory treatments that are performable only in acute inpatient setting [ ]VIII. Impending or actual respiratory arrest ( Also use Respiratory Failure GRG for severe respiratory disease and long-term mechanical ventilation patients) [ ]IX. Neurologic abnormalities, including ANY ONE of the following: [ ]a) New findings that suggest ANY ONE of the following: [ ]i) [employer] infection(38) [ ]ii) Cerebral bleeding, ischemia, or vasospasm(39)(40) [ ]iii) Increased intracranial pressure, hydrocephalus, or cerebral edema(41)(42)(43) [ ]iv) Spinal cord injury(44) [ ]b) Uncontrolled seizures(45) [ ]c) New-onset coma (eg, Lukas coma scale score less than 9) or unexplained abnormal mental status (eg, Lukas coma scale score less than 14) [D](41)(46)(47) [ ]X. New-onset severe neurologic findings requiring inpatient care; examples include(42)(48)(49): [ ]a) Papilledema [ ]b) Cerebral edema [ ]c) Mass effect on CT scan [ ]XI. Suspected acute intra-abdominal process with peritoneal signs, abdominal mass, or similar findings (50)(51)(52) [X]XII. Severe physiologic disorder remaining after emergency or observation level care (as appropriate) as indicated by ANY ONE of the following (53): [ ]a) Significant dehydration [X]b) Diabetic ketoacidosis [ ]c) Hyperglycemic hyperosmolar state (eg, osmolality greater than 320 mOsm/kg (mmol/kg) [ ]d) Hypoglycemia [ ]e) Other (new) acid-base disorder with pH less than 7.35 or greater than 7.5(54) [ ]f) Thyroid storm (55) [ ]g) Myxedema coma (55) [ ]XIII. Abdominal abnormalities with ANY ONE of the following(56)(57): [ ]a) Absent bowel sounds with complete ileus [ ]b) Signs of intestinal obstruction or peritonitis [E] [ ]c) Nausea and vomiting that cannot be controlled with outpatient or observation care [ ]XIV. Acute renal failure as indicated by new onset of ANY ONE of the following(9)(10)(11)(12)(13): [ ]a) A 3-fold rise in serum creatinine from baseline [ ]b) Serum creatinine greater than 4 mg/dL (354 micromoles/L) with acute rise greater than 0.5 mg/dL (44.2 micromoles/L) [ ]c) Reduction of more than 75% in estimated glomerular filtration rate from baseline [ ]d) Estimated glomerular filtration rate less than 35 mL/min/ 1.73m2 (0.59 mL/sec/1.73m2) in child up to 18 years of age [ ]e) Cessation of urine output indicated by ALL of the following: [ ]i) Adequate volume status [ ]ii) Inadequate urine output as indicated by ANY ONE of the following: [ ]1) Urine output less than 0.3 mL/kg/hr for 24 hours [ ]2) Anuria (urine output less than 0.1 mL/kg/hr) for 12 hours [ ]XV. Significant uremic complications as indicated by ANY ONE of the following(58)(59)(60): [ ]a) Outpatient therapy is ineffective or not feasible for ANY ONE of the following: [ ]i) Severe heart failure [ ]ii) Severehypertension [ ]iii) Pleural effusion [ ]iv) Pericarditis or pericardial effusion [ ]b) Cardiac arrhythmias of immediate concern [ ]c) Intractable nausea or vomiting [ ]d) Recurrent seizures [ ]e) Encephalopathy [ ]f) Bleeding abnormalities (eg, platelet dysfunction) with active (eg, gastrointestinal) bleeding [ ]g) Dialysis indicated before long-term access or ambulatory arrangements can be made [ ]h) Significant metabolic or electrolyte abnormalities (eg, severe acidosis or hyperkalemia) [ ]XVI. High fever or other high-risk infection situation as indicated by ANY ONE of the following(61)(62)(63)(64): [ ]a) Outpatient and observation care antimicrobial treatment unavailable, not effective, or not appropriate [ ]b) Documented bacteremia [ ]c) Temperature greater than 40.5 degrees C (104.9 degrees F) ( oral) [ ]d) Temperature greater than 39.5 degrees C (103.1 degrees F) ( oral) or less than 36 degrees C (96.8 degrees F) (rectal) that does not respond to e treatment and observation care [ ] XVII. Temperature less than 95 degrees F (35 degrees C)(rectal)(65) [ ] XVIII. Severe nutritional abnormalities as indicated by ALL of the following (66)(67): [ ]a) Inability to tolerate or establish sufficient oral or other enteral nutrition in outpatient setting [ ]b) Parenteral nutrition regimen need that must be implemented on inpatient basis [ ] XIX. Severe electrolyte abnormalities indicated by ALL of the following(68) (69)(70): [ ]a) Electrolytes and associated findings are not as expected for patient baseline or acceptable treatment effects. [ ]b) Severe abnormalities indicated by ANY ONE of the following: [ ]i) Sodium less than 130 mEq/L (mmol/L) (new) [ ]ii)Sodium less than 135 mEq/L (mmol/L) with ANY ONE of the following: [ ]1) Uncorrectable (to near normal or chronic baseline) after trial of outpatient and emergency treatment [ ]2) Altered mental status [ ]3) Seizures [ ]4) Severe medical etiology requiring inpatient management (eg, heart failure, hypovolemia) [ ]iii) Sodium greater than 155 mEq/L (mmol/L) [ ]iv) Sodium greater than 150 mEq/L (mmol/L) with ANY ONE of the following: [ ]1) Uncorrectable (to near normal or chronic baseline) with outpatient and emergency treatment [ ]2) Altered mental status [ ]3) Seizures [ ]4) Severe medical etiology (eg, hypovolemia, diabetes insipidus) [ ]v) Potassium less than 2.5 mEq/L (mmol/L) despite outpatient and emergency treatment [ ]vi) Potassium less than 3 mEq/L (mmol/L) with ANY ONE of the following: [ ]1) Weakness [ ]2) Cardiac abnormality (eg, arrhythmia, conduction disturbance) [ ]3) Cardiac ischemia [ ]4) Ileus [ ]5) Ongoing medical cause requiring inpatient management (eg, acute renal wasting or SIADH) [ ]6) Other severe symptoms [ ]vii) Potassium greater than 6.5 mEq/L (mmol/L) [ ]viii) Potassium greater than 5 mEq/L (mmol/L) with ANY ONE of the following: [ ]1) Uncorrectable (to near normal or chronic baseline) with outpatient and emergency treatment [ ]2) Severe ECG findings [F] [ ]3) Acute worsening of renal failure (creatinine greater than 2.5 mg/dL (221 micromoles/L) or significant elevation for age and size) [ ]4) Severe weakness [ ]5) Severe medical etiology (eg, hemolysis, infection, drug overdose) [ ]ix) Calcium less than 7 mg/dL (1.75 mmol/L) despite outpatient and emergency treatment (72) [ ]x) Calcium less than 8 mg/dL (2 mmol/L) with significant symptoms or findings; examples include(72): [ ]1) Altered mental status [ ]2) Muscle spasms [ ]3) Seizures [ ]4) Breathing difficulty [ ]5) Cardiac abnormality (eg, arrhythmia or conduction disturbance) [ ]xi) Calcium greater than 14 mg/dL (3.5 mmol/L)(72) [ ]xii) Calcium greater than 12 mg/dL (3 mmol/L) with ANY ONE of the following(72): [ ]1) Uncorrectable (to near normal or chronic baseline) with outpatient and emergency treatment [ ]2) Significant dehydration or hypovolemia as indicated by ALL of the following(70)(73)(74): [ ]A. Not resolved with initial treatments [ ]B. Clinically significant dehydration as indicated by ANY ONE of the following: [ ]a. Vomiting refractory to outpatient treatment (ie, precluding oral rehydration) [ ]b. Inability to drink [ ]c. Hypernatremia or other electrolyte abnormality unable to be corrected with outpatient and emergency treatment [ ]d. Failure to remain hydrated with outpatient therapy [ ]e. Reduced urine output [ ]f. Hypotension [ ]g. Serious cause for dehydration requiring acute hospitalization (eg, bowel obstruction, increased intracranial pressure, infectious cause) [ ]h. Child with ANY ONE of the following(75): [ ]1) Severe abdominal tenderness [ ]2) Adequate care not available at home [ ]3) Severe dehydration ( greater than 9% loss of body weight) [ ]4) Significant symptoms or findings; examples include: [ ]A. Altered mental status [ ]B. Cardiac abnormality (eg, arrhythmia, conduction disturbance) [ ]C. Malignant etiology requiring inpatient treatment [ ]xiii) Phosphorus less than 1 mg/dL (0.32 mmol/L) [ ]xiv) Phosphorus less than 1.5 mg/dL (0.48 mmol/L) with ANY ONE of the following: [ ]1) Patient unresponsive to outpatient and emergency treatment [ ]2) Significant symptoms or findings; examples include: [ ]A. Weakness [ ]B. Altered mental status [ ]C. Breathing difficulty [ ]D. Seizures [ ]E. Rhabdomyolysis [ ]xv) Phosphorus greater than 10 mg/dL (3.2 mmol/L) [ ]xvi) Phosphorus greater than 4.5 mg/dL (1.45 mmol/L) (new) with ANY ONE of the following: [ ]1) Severe medical etiology (eg, crush injury, acute renal failure) [ ]2) Associated hypocalcemia with significant findings; examples include: [ ]A. Neurologic symptoms [ ]B. Altered mental status [ ]C. Muscle spasms [ ]D. Seizures [ ]E. Breathing difficulty [ ]F. Cardiac abnormality (eg, arrhythmia, conduction disturbance) [ ]xvii) Magnesium less than 1 mg/dL (0.41 mmol/L) [ ]xviii) Magnesium less than 1.5 mg/dL (0.62 mmol/L) with ANY ONE of the following: [ ]1) Patient unresponsive to outpatient and emergency treatment [ ]2) Associated hypocalcemia with significant findings; examples include: [ ]A. Altered mental status [ ]B. Muscle spasms [ ]C. Seizures [ ]D. Breathing difficulty [ ]E. Cardiac abnormality (eg, arrhythmia , conduction disturbance) [ ]3) Associated hypokalemia (potassium less than 3 mEq/L (mmol/L)) with risk of arrhythmia [ ]xix) Magnesium greater than 4 mEq/L (2 mmol/L) [ ]xx) Magnesium greater than 2.5 mEq/L (1.25 mmol/L) with significant symptoms or findings; examples include: [ ]1) Weakness [ ]2) Altered mental status [ ]3) Cardiac abnormality (eg, arrhythmia, conduction disturbance) [ ]4) Breathing difficulty [ ]5) Severe medical etiology (eg, renal failure, hypovolemia) [ ]xxi) Uric acid greater than 20 mg/dL (1190 micromoles/L)(76) [ ]xxii) Uric acid greater than 8 mg/dL (476 micromoles/L) with significant symptoms or findings of tumor lysis syndrome; examples include(76): [ ]1) Creatinine greater than 1.5 times upper limit of normal [ ]2) Cardiac abnormality (eg, arrhythmia, conduction disturbance) [ ]3) Seizure [ ]XX. Acute blood loss causing significant abnormality as indicated by ANY ONE of the following(77)(78): [ ]a) Hemoglobin less than 10 g/dL (100 g/L) (not baseline) [ ]b) Hematocrit less than 30% (0.30) (not baseline) [ ]c) Repeat hematocrit decreased more than 2% (0.02) [ ]d) Uncontrolled bleeding [ ]XXI. Severe anemia indicated by ANY ONE of the following(78)(79): [ ]a) Altered mental status [ ]b) Chest pain [ ]c) Exertional dyspnea [ ]d) Syncope [ ]e) Other findings suggesting inadequate perfusion [ ]f) Treatment with transfusion or volume replacement is ineffective at resolving ANY ONE of the following [G]: [ ]i) Tachycardia for age [ ]ii) Orthostatic vital sign changes as indicated by ANY ONE of the following(80): [ ]1) Fall in SBP of 20 mm Hg or more 1 to 3 minutes after patient sits or stands from recumbent position [ ]2) Fall in DBP of 10 mm Hg or more 1 to 3 minutes after patient sits or stands from recumbent position [ ]XXII. High-risk low platelet count as indicated by ANY ONE of the following( 81)(82): [ ]a) Severe or life-threatening bleeding (eg, intracranial, major gastrointestinal, or extensive mucosal bleeding), with any reduced platelet count [ ]b) Platelet count less than 20,000/mm3 (20 x109/L) with any active bleeding [ ]c) Platelet count less than 10,000/mm3 (10 x109/L) with minor purpura or petechiae [ ]d) Platelet count less than 5000/mm3 (5 x109/L) [ ]e) Low platelet count with hemolytic anemia [ ]XXIII. Disseminated intravascular coagulation(77)(83) [ ]XXIV. Severe adverse drug or systemic toxin reaction requiring inpatient treatment; examples include(84)(85): [ ]a) Serotonin syndrome(86) [ ]b) Neuroleptic malignant syndrome(86) [ ]c) Cholinergic syndrome with severe symptoms (eg, bronchorrhea, weakness, mental status changes, seizures) [ ]d) Sympathetic syndrome with severe symptoms (eg, seizures, mental status changes, cardiac dysrhythmias) [ ]e) Anticholinergic syndrome [ ]XXV. Severe pain requiring acute inpatient management as indicated by ALL of the following (87)(88)(89): [ ]a) Continuous or frequent (eg, every 2 to 4 hours) parenteral analgesics required [H] [ ]b) Rapid improvement expected from treatment or acute intervention (eg, surgery, anesthesia procedure) [ ]XXVI.Severe behavioral health issues judged unmanageable at a lower level of care (eg, residential) in a patient who is ANY ONE of the following(91) [ ]a) Acutely suicidal [ ]b) A danger to self (eg, self-mutilating or suicidal behavior) [ ]c) A danger to others (eg, assaultive or homicidal behavior) [ ]d) Incapacitated because of grave disability (eg, inability to provide for self at lower level of care) (92) [ ]XXVII. Inpatient monitoring needed; examples include(1)(3)(87)(93)(94)(95)(96 ): [ ]a) Vital signs, neurologic signs, or vascular checks more frequently than every 4 hours [ ]b) Cardiac or respiratory monitoring beyond the scope (eg, over 24 hours) of observation care [ ]c) Pulmonary artery catheter monitoring [ ]d) Suspected compartment syndrome(97) (98) [ ]e) Cerebral bleeding, hydrocephalus, or vasospasm monitoring [ ]f) Increased intracranial pressure or cerebral edema monitoring [ ]g) monitoring [ ]XXVIII. Treatment requiring inpatient care; examples include: [ ]a) IV fluid to replace significant ongoing losses (greater than 3 L/m2 per day)(53) [ ]b) High concentration oxygen (greater than 40%)(33)(99)(100) [ ]c) Frequent respiratory therapy (more frequently than every 4 hours) to maintain airflow rates greater than 60% of baseline(33)(99)(100) [ ]d) Epidural analgesia(87) [ ]e) IV anticoagulation, vasoactive, or antiarrhythmic medication(19 )(23) [ ]f) Acute thrombolytics (generally require 24 hours of observation )(101)(102) [ ]XXIX. Emergency procedures needed; examples include: [ ]a) Emergency inpatient surgery [ ]b) Temporary pacemaker placement(103) [ ]c) Chest tube placement with active evacuation (eg, suction, drainage)(104) [ ]d) Emergent cardioversion(105) [ ]e) Emergent cardiac or vascular procedures (eg, cardiac catheterization, angioplasty) (17)(18) [ ]f) Emergent dialysis access placement and institution(10)(106) [ ]g) Emergent pericardiocentesis(107) [ ]h) Emergent plasmapheresis or leukapheresis(83) [ ]i) Emergent tracheostomy The original [employer] content created by [employer] has been revised. The portions of the content which have been revised are identified through the use of italic text or in bold, and [employer] [facility] has neither reviewed nor approved the modified material. All other unmodified content is copyright [employer]. Please see references footnoted in the original [employer] edition 2016 Admission Criteria Met?: Yes JOE NIETO Dec 04, 2016 16:24
[2016-12-04 16:51] LABS: CREATININE 1.1 mg/dL (0.6-1.0); GFR 75.2; POTASSIUM 4.9 mmol/L (3.5-5.1)
[2016-12-04] MEDS ORDERED: hydrALAZINE 20 MG/ML VIAL. IVP PRN (17:00)
[2016-12-04] MEDS ORDERED: ACETAMINOPHEN 325 MG TABLET. PO PRN (17:00)
[2016-12-04] MEDS ORDERED: ALBUTEROL SULFATE 2.5 MG/3 ML NEBU. NEB PRN (17:00)
[2016-12-04] MEDS: HYDROCODONE/APAP 5/325MG TABLET. PO PRN (17:23)
[2016-12-04] MEDS: MORPHINE SULFATE 2 MG/ML DISP.SYRIN. IV PRN ×2 (17:23→22:27)
[2016-12-04] MEDS ORDERED: SODIUM PHOSPHATE 40 MMOL in IV NORMAL SALINE 500ML BAG 500 ML IV PRN (17:30)
[2016-12-04] MEDS ORDERED: SODIUM PHOSPHATE 10 MMOL in IV DEXTROSE 5% 250 ML IV PRN (17:30)
[2016-12-04] MEDS ORDERED: POTASSIUM CHLORIDE 10MEQ 100 ML IV PRN ×2 (17:30)
[2016-12-04] MEDS ORDERED: SODIUM PHOSPHATE 20 MMOL in IV DEXTROSE 5% 250 ML IV PRN (17:30)
[2016-12-04 17:48] LABS: OBC FLU VALID
[2016-12-04] MEDS: POTASSIUM CHLORIDE 10MEQ 100 ML IV SCH ×2 (18:03→18:59)
[2016-12-04] MEDS: IV DEXTROSE 5 %-0.45 % NACL 1,000 ML IV SCH ×2 (18:57→22:57)
--- NOTE | 2016-12-04 22:45 | HP ---
ADMIT DATE: 12/04/2016 CHIEF COMPLAINT: Fatigue, weakness and dehydration. HISTORY OF PRESENT ILLNESS: A 21-year-old female patient with history of type 1 diabetes mellitus, presented to the ER with complaints of dehydration, nausea, vomiting and increased blood sugars. The patient denies any noncompliance or any change in her diet; however, she had an episode of nausea and nonbilious vomiting. She was diagnosed with a questionable diabetic gastroparesis in the past also complains of some flu-like symptoms and some of her family members have flu. She denies any fever, chills or cough, shortness of breath, sick contacts or travel history. PAST MEDICAL HISTORY: Please see my electronic H and P. REVIEW OF SYSTEMS: Please see my electronic H and P. LABORATORY DATA: Urine pH showed 5.5, specific gravity more than 1.030, ketone is more than 80, bilirubin negative, leukocyte esterase negative. Chemistry: Sodium 140, potassium 5.3, chloride is 100, carbon dioxide less than 5, anion gap more than 35, BUN 20, creatinine 1, blood sugar 674. Serology: Influenza A and B negative. CBC: WBC 13,000, hemoglobin 13.9, MCV 96, platelets 451. IMAGING STUDIES: Chest x-ray: No acute cardiopulmonary process seen. ASSESSMENT: 1. Diabetic ketoacidosis, present on admission. 2. Type 1 diabetes mellitus. 3. Mild hyperkalemia, metabolic acidosis due to diabetic ketoacidosis. PLAN: 1. The patient has been admitted to critical care unit and currently she is getting IV insulin gtt, and IV hydration as per DKA protocol. 2. She is complaining of some abdominal pain. We will give IV morphine q. 2 hours as needed. Replace electrolyte as per protocol, pl see orders. 3. Influenza A and B negative. 4. The patient denies any noncompliance. Once gap is improving and once gap is closed, I will resume home insulin. 5. Continue IV hydration. Critical care time 32 minutes. PROGNOSIS: Guarded. MARKUS CHANG MD DR: [email or web address]/gerald JOB#: [id number] / [id number] IVAN
[2016-12-05] VITALS (15 sets, daily range): BP systolic 87–122; BP diastolic 51–78
[2016-12-05 01:13] LABS: CALCIUM 8.3 mg/dL (8.5-10.1); CREATININE 0.8 mg/dL (0.6-1.0); GFR 108.5; MAGNESIUM 1.6 mg/dL (1.8-2.4); PHOSPHORUS 2.5 mg/dL (2.6-4.7); POTASSIUM 3.8 mmol/L (3.5-5.1)
[2016-12-05] MEDS: POTASSIUM CHLORIDE 10MEQ 100 ML IV PRN ×4 (02:42→05:49)
[2016-12-05] MEDS: MORPHINE SULFATE 2 MG/ML DISP.SYRIN. IV PRN ×2 (02:50→23:47)
[2016-12-05] MEDS: IV DEXTROSE 5 %-0.45 % NACL 1,000 ML IV SCH ×2 (03:16→08:03)
[2016-12-05] MEDS: HYDROCODONE/APAP 5/325MG TABLET. PO PRN ×3 (03:18→19:36)
[2016-12-05 06:20] LABS: BASO # 0.1 x10^3/uL (0.0-0.2); BASO % 1 % (0-3); EOS % 1 % (0-3); HEMOGLOBIN 11.4 g/dL (12.0-15.5); LYMPH # 2.5 x10^3/uL (1.0-4.8); LYMPH % 30 % (24-48); MEAN CORPUSCULAR HEMOGLOBIN 30 pg (25-35); MEAN CORPUSCULAR HGB CONC 32 g/dL (31-37); MEAN CORPUSCULAR VOLUME 92 fL (79-100); MONO % 6 % (0-9); NEUT % 62 % (31-73); PLATELET COUNT 343 x10^3/uL (140-400); RED BLOOD COUNT 3.83 x10^6/uL (3.50-5.40); RED CELL DISTRIBUTION WIDTH 13.3 % (11.5-14.5); WHITE BLOOD COUNT 8.3 x10^3/uL (4.0-11.0)
[2016-12-05 06:38] LABS: CALCIUM 8.1 mg/dL (8.5-10.1); CREATININE 0.8 mg/dL (0.6-1.0); GFR 108.5; MAGNESIUM 1.4 mg/dL (1.8-2.4); PHOSPHORUS 4.6 mg/dL (2.6-4.7); POTASSIUM 4.2 mmol/L (3.5-5.1)
[2016-12-05] MEDS ORDERED: MAGNESIUM SULFATE 2GM 50 ML IV ONE (08:00)
[2016-12-05 08:58] LABS: CALCIUM 8.1 mg/dL (8.5-10.1); CREATININE 0.8 mg/dL (0.6-1.0); GFR 108.5; MAGNESIUM 1.6 mg/dL (1.8-2.4); PHOSPHORUS 4.2 mg/dL (2.6-4.7)
[2016-12-05] MEDS ORDERED: DEXTROSE 50% 25 GM / 50ML DISP.SYRIN. IV PRN (11:00)
[2016-12-05] MEDS ORDERED: INSULIN DETEMIR 300 UNITS/3 ML INSULN.PEN. SQ SCH ×2 (11:30→21:00)
[2016-12-05] MEDS: INSULIN ASPART 300 UNITS/3 ML INSULN.PEN SQ SCH ×4 (11:44→17:39)
--- NOTE | 2016-12-05 12:13 | PDOC ---
PROGRESS NOTES Chief Complaint Chief Complaint CC: Nausea A/P 1. Diabetic ketoacidosis, present on admission. improved. 2. Type 1 diabetes mellitus. Plan STRAT HOME DOSE LEVEMIR SSI Mild iv hydration labs reviewed advance diet Transfer pt History of Present Illness History of Present Illness no fever no chills no chest pain Vitals Vitals Vital Signs Date Time Temp Pulse Resp B/P Pulse Ox O2 Delivery O2 Flow Rate FiO2 12/05/16 11:43 14 100 Room Air 12/05/16 11:00 97 94/51 12/05/16 08:00 97.5 97.5 Physical Exam General: Alert, Oriented X3 Heart: Normal S1, Normal S2 Lungs: Clear Abdomen: Normal bowel sounds, Soft Labs LABS Laboratory Tests Test 12/04/16 12:20 12/04/16 12:22 12/04/16 13:23 12/04/16 16:25 Urine Collection Type Unknown Urine Color Yellow Urine Clarity Clear Urine pH 5.5 Urine Specific [place] >=1.030 Urine Protein Negativemg/dL (NEG-TRACE) Urine Glucose (UA) >=1000mg/dL (NEG) Urine Ketones (Stick) >=80mg/dL (NEG) Urine Blood Negative (NEG) Urine Nitrite Negative (NEG) Urine Bilirubin Negative (NEG) Urine Urobilinogen Dipstick 0.2mg/dL (0.2 mg/dL) Urine Leukocyte Esterase Negative (NEG) Urine RBC 0/HPF (0-2) Urine WBC Occ/HPF (0-4) Urine Squamous Epithelial Cells Mod/LPF Urine Bacteria 0/HPF (0-FEW) Bedside Urine HCG, Qualitative Hcg negative (Negative) White Blood Count 13.0x10^3/uL (4.0-11.0) Red Blood Count 4.69x10^6/uL (3.50-5.40) Hemoglobin 13.9g/dL (12.0-15.5) Hematocrit 44.9% (36.0-47.0) Mean Corpuscular Volume 96fL (79-100) Mean Corpuscular Hemoglobin 30pg (25-35) Mean Corpuscular Hemoglobin Concent 31g/dL (31-37) Red Cell Distribution Width 13.8% (11.5-14.5) Platelet Count 451x10^3/uL (140-400) Neutrophils (%) (Auto) 80% (31-73) Lymphocytes (%) (Auto) 18% (24-48) Monocytes (%) (Auto) 2% (0-9) Eosinophils (%) (Auto) 0% (0-3) Basophils (%) (Auto) 1% (0-3) Neutrophils # (Auto) 10.3x10^3uL (1.8-7.7) Lymphocytes # (Auto) 2.3x10^3/uL (1.0-4.8) Monocytes # (Auto) 0.3x10^3/uL (0.0-1.1) Eosinophils # (Auto) 0.0x10^3/uL (0.0-0.7) Basophils # (Auto) 0.1x10^3/uL (0.0-0.2) Sodium Level 140mmol/L (136-145) 147mmol/L (136-145) Potassium Level 5.3mmol/L (3.5-5.1) 4.9mmol/L (3.5-5.1) Chloride Level 100mmol/L (98-107) 106mmol/L (98-107) Carbon Dioxide Level < 5mmol/L (21-32) 6mmol/L (21-32) Anion Gap (6-14) 35 (6-14) Blood Urea Nitrogen 20mg/dL (7-20) 20mg/dL (7-20) Creatinine 1.0mg/dL (0.6-1.0) 1.1mg/dL (0.6-1.0) Estimated GFR (Cockcroft-Gault) 83.9 75.2 Glucose Level 674mg/dL (70-99) 497mg/dL (70-99) Calcium Level 9.0mg/dL (8.5-10.1) 9.0mg/dL (8.5-10.1) Phosphorus Level 5.3mg/dL (2.6-4.7) Magnesium Level 1.8mg/dL (1.8-2.4) Total Bilirubin 0.7mg/dL (0.2-1.0) Direct Bilirubin 0.1mg/dL (0.0-0.2) Aspartate Amino Transf (AST/SGOT) 19U/L (15-37) Alanine Aminotransferase (ALT/SGPT) 36U/L (14-59) Alkaline Phosphatase 96U/L (46-116) Troponin I Quantitative < 0.017ng/mL (0.000-0.055) Total Protein 6.9g/dL (6.4-8.2) Albumin 3.5g/dL (3.4-5.0) Lipase 74U/L (73-393) Test 12/04/16 16:55 12/04/16 18:13 12/04/16 19:17 12/04/16 20:13 Influenza Type A Antigen Negative (NEGATIVE) Influenza Type B Antigen Negative (NEGATIVE) Glucose (Fingerstick) 225mg/dL (70-99) 216mg/dL (70-99) 216mg/dL (70-99) Test 12/04/16 21:10 12/04/16 22:09 12/04/16 23:08 12/05/16 00:03 Glucose (Fingerstick) 194mg/dL (70-99) 180mg/dL (70-99) 158mg/dL (70-99) 142mg/dL (70-99) Test 12/05/16 00:50 12/05/16 01:07 12/05/16 02:10 12/05/16 03:15 Sodium Level 142mmol/L (136-145) Potassium Level 3.8mmol/L (3.5-5.1) Chloride Level 111mmol/L (98-107) Carbon Dioxide Level 20mmol/L (21-32) Anion Gap 11 (6-14) Blood Urea Nitrogen 17mg/dL (7-20) Creatinine 0.8mg/dL (0.6-1.0) Estimated GFR (Cockcroft-Gault) 108.5 Glucose Level 164mg/dL (70-99) Calcium Level 8.3mg/dL (8.5-10.1) Phosphorus Level 2.5mg/dL (2.6-4.7) Magnesium Level 1.6mg/dL (1.8-2.4) Glucose (Fingerstick) 128mg/dL (70-99) 130mg/dL (70-99) 111mg/dL (70-99) Test 12/05/16 04:18 12/05/16 05:19 12/05/16 05:25 12/05/16 06:22 Glucose (Fingerstick) 216mg/dL (70-99) 190mg/dL (70-99) 148mg/dL (70-99) White Blood Count 8.3x10^3/uL (4.0-11.0) Red Blood Count 3.83x10^6/uL (3.50-5.40) Hemoglobin 11.4g/dL (12.0-15.5) Hematocrit 35.0% (36.0-47.0) Mean Corpuscular Volume 92fL (79-100) Mean Corpuscular Hemoglobin 30pg (25-35) Mean Corpuscular Hemoglobin Concent 32g/dL (31-37) Red Cell Distribution Width 13.3% (11.5-14.5) Platelet Count 343x10^3/uL (140-400) Neutrophils (%) (Auto) 62% (31-73) Lymphocytes (%) (Auto) 30% (24-48) Monocytes (%) (Auto) 6% (0-9) Eosinophils (%) (Auto) 1% (0-3) Basophils (%) (Auto) 1% (0-3) Neutrophils # (Auto) 5.2x10^3uL (1.8-7.7) Lymphocytes # (Auto) 2.5x10^3/uL (1.0-4.8) Monocytes # (Auto) 0.5x10^3/uL (0.0-1.1) Eosinophils # (Auto) 0.1x10^3/uL (0.0-0.7) Basophils # (Auto) 0.1x10^3/uL (0.0-0.2) Sodium Level 139mmol/L (136-145) Potassium Level 4.2mmol/L (3.5-5.1) Chloride Level 109mmol/L (98-107) Carbon Dioxide Level 19mmol/L (21-32) Anion Gap 11 (6-14) Blood Urea Nitrogen 16mg/dL (7-20) Creatinine 0.8mg/dL (0.6-1.0) Estimated GFR (Cockcroft-Gault) 108.5 Glucose Level 211mg/dL (70-99) Calcium Level 8.1mg/dL (8.5-10.1) Phosphorus Level 4.6mg/dL (2.6-4.7) Magnesium Level 1.4mg/dL (1.8-2.4) Test 12/05/16 07:51 12/05/16 08:25 12/05/16 10:35 12/05/16 11:29 Glucose (Fingerstick) 72mg/dL (70-99) 247mg/dL (70-99) 351mg/dL (70-99) Sodium Level 138mmol/L (136-145) Potassium Level 4.0mmol/L (3.5-5.1) Chloride Level 108mmol/L (98-107) Carbon Dioxide Level 19mmol/L (21-32) Anion Gap 11 (6-14) Blood Urea Nitrogen 15mg/dL (7-20) Creatinine 0.8mg/dL (0.6-1.0) Estimated GFR (Cockcroft-Gault) 108.5 Glucose Level 96mg/dL (70-99) Calcium Level 8.1mg/dL (8.5-10.1) Phosphorus Level 4.2mg/dL (2.6-4.7) Magnesium Level 1.6mg/dL (1.8-2.4) Assessment and Plan Assessmemt and Plan Problems Medical Problems: (1) DKA (diabetic ketoacidoses) Status: Acute Problems: Comment Review of Relevant I have reviewed the following items cristela (where applicable) has been applied. Labs Laboratory Tests Test 12/04/16 12:20 12/04/16 12:22 12/04/16 13:23 12/04/16 16:25 Urine Collection Type Unknown Urine Color Yellow Urine Clarity Clear Urine pH 5.5 Urine Specific [place] >=1.030 Urine Protein Negativemg/dL (NEG-TRACE) Urine Glucose (UA) >=1000mg/dL (NEG) Urine Ketones (Stick) >=80mg/dL (NEG) Urine Blood Negative (NEG) Urine Nitrite Negative (NEG) Urine Bilirubin Negative (NEG) Urine Urobilinogen Dipstick 0.2mg/dL (0.2 mg/dL) Urine Leukocyte Esterase Negative (NEG) Urine RBC 0/HPF (0-2) Urine WBC Occ/HPF (0-4) Urine Squamous Epithelial Cells Mod/LPF Urine Bacteria 0/HPF (0-FEW) Bedside Urine HCG, Qualitative Hcg negative (Negative) White Blood Count 13.0x10^3/uL (4.0-11.0) Red Blood Count 4.69x10^6/uL (3.50-5.40) Hemoglobin 13.9g/dL (12.0-15.5) Hematocrit 44.9% (36.0-47.0) Mean Corpuscular Volume 96fL (79-100) Mean Corpuscular Hemoglobin 30pg (25-35) Mean Corpuscular Hemoglobin Concent 31g/dL (31-37) Red Cell Distribution Width 13.8% (11.5-14.5) Platelet Count 451x10^3/uL (140-400) Neutrophils (%) (Auto) 80% (31-73) Lymphocytes (%) (Auto) 18% (24-48) Monocytes (%) (Auto) 2% (0-9) Eosinophils (%) (Auto) 0% (0-3) Basophils (%) (Auto) 1% (0-3) Neutrophils # (Auto) 10.3x10^3uL (1.8-7.7) Lymphocytes # (Auto) 2.3x10^3/uL (1.0-4.8) Monocytes # (Auto) 0.3x10^3/uL (0.0-1.1) Eosinophils # (Auto) 0.0x10^3/uL (0.0-0.7) Basophils # (Auto) 0.1x10^3/uL (0.0-0.2) Sodium Level 140mmol/L (136-145) 147mmol/L (136-145) Potassium Level 5.3mmol/L (3.5-5.1) 4.9mmol/L (3.5-5.1) Chloride Level 100mmol/L (98-107) 106mmol/L (98-107) Carbon Dioxide Level < 5mmol/L (21-32) 6mmol/L (21-32) Anion Gap (6-14) 35 (6-14) Blood Urea Nitrogen 20mg/dL (7-20) 20mg/dL (7-20) Creatinine 1.0mg/dL (0.6-1.0) 1.1mg/dL (0.6-1.0) Estimated GFR (Cockcroft-Gault) 83.9 75.2 Glucose Level 674mg/dL (70-99) 497mg/dL (70-99) Calcium Level 9.0mg/dL (8.5-10.1) 9.0mg/dL (8.5-10.1) Phosphorus Level 5.3mg/dL (2.6-4.7) Magnesium Level 1.8mg/dL (1.8-2.4) Total Bilirubin 0.7mg/dL (0.2-1.0) Direct Bilirubin 0.1mg/dL (0.0-0.2) Aspartate Amino Transf (AST/SGOT) 19U/L (15-37) Alanine Aminotransferase (ALT/SGPT) 36U/L (14-59) Alkaline Phosphatase 96U/L (46-116) Troponin I Quantitative < 0.017ng/mL (0.000-0.055) Total Protein 6.9g/dL (6.4-8.2) Albumin 3.5g/dL (3.4-5.0) Lipase 74U/L (73-393) Test 12/04/16 16:55 12/04/16 18:13 12/04/16 19:17 12/04/16 20:13 Influenza Type A Antigen Negative (NEGATIVE) Influenza Type B Antigen Negative (NEGATIVE) Glucose (Fingerstick) 225mg/dL (70-99) 216mg/dL (70-99) 216mg/dL (70-99) Test 12/04/16 21:10 12/04/16 22:09 12/04/16 23:08 12/05/16 00:03 Glucose (Fingerstick) 194mg/dL (70-99) 180mg/dL (70-99) 158mg/dL (70-99) 142mg/dL (70-99) Test 12/05/16 00:50 12/05/16 01:07 12/05/16 02:10 12/05/16 03:15 Sodium Level 142mmol/L (136-145) Potassium Level 3.8mmol/L (3.5-5.1) Chloride Level 111mmol/L (98-107) Carbon Dioxide Level 20mmol/L (21-32) Anion Gap 11 (6-14) Blood Urea Nitrogen 17mg/dL (7-20) Creatinine 0.8mg/dL (0.6-1.0) Estimated GFR (Cockcroft-Gault) 108.5 Glucose Level 164mg/dL (70-99) Calcium Level 8.3mg/dL (8.5-10.1) Phosphorus Level 2.5mg/dL (2.6-4.7) Magnesium Level 1.6mg/dL (1.8-2.4) Glucose (Fingerstick) 128mg/dL (70-99) 130mg/dL (70-99) 111mg/dL (70-99) Test 12/05/16 04:18 12/05/16 05:19 12/05/16 05:25 12/05/16 06:22 Glucose (Fingerstick) 216mg/dL (70-99) 190mg/dL (70-99) 148mg/dL (70-99) White Blood Count 8.3x10^3/uL (4.0-11.0) Red Blood Count 3.83x10^6/uL (3.50-5.40) Hemoglobin 11.4g/dL (12.0-15.5) Hematocrit 35.0% (36.0-47.0) Mean Corpuscular Volume 92fL (79-100) Mean Corpuscular Hemoglobin 30pg (25-35) Mean Corpuscular Hemoglobin Concent 32g/dL (31-37) Red Cell Distribution Width 13.3% (11.5-14.5) Platelet Count 343x10^3/uL (140-400) Neutrophils (%) (Auto) 62% (31-73) Lymphocytes (%) (Auto) 30% (24-48) Monocytes (%) (Auto) 6% (0-9) Eosinophils (%) (Auto) 1% (0-3) Basophils (%) (Auto) 1% (0-3) Neutrophils # (Auto) 5.2x10^3uL (1.8-7.7) Lymphocytes # (Auto) 2.5x10^3/uL (1.0-4.8) Monocytes # (Auto) 0.5x10^3/uL (0.0-1.1) Eosinophils # (Auto) 0.1x10^3/uL (0.0-0.7) Basophils # (Auto) 0.1x10^3/uL (0.0-0.2) Sodium Level 139mmol/L (136-145) Potassium Level 4.2mmol/L (3.5-5.1) Chloride Level 109mmol/L (98-107) Carbon Dioxide Level 19mmol/L (21-32) Anion Gap 11 (6-14) Blood Urea Nitrogen 16mg/dL (7-20) Creatinine 0.8mg/dL (0.6-1.0) Estimated GFR (Cockcroft-Gault) 108.5 Glucose Level 211mg/dL (70-99) Calcium Level 8.1mg/dL (8.5-10.1) Phosphorus Level 4.6mg/dL (2.6-4.7) Magnesium Level 1.4mg/dL (1.8-2.4) Test 12/05/16 07:51 12/05/16 08:25 12/05/16 10:35 12/05/16 11:29 Glucose (Fingerstick) 72mg/dL (70-99) 247mg/dL (70-99) 351mg/dL (70-99) Sodium Level 138mmol/L (136-145) Potassium Level 4.0mmol/L (3.5-5.1) Chloride Level 108mmol/L (98-107) Carbon Dioxide Level 19mmol/L (21-32) Anion Gap 11 (6-14) Blood Urea Nitrogen 15mg/dL (7-20) Creatinine 0.8mg/dL (0.6-1.0) Estimated GFR (Cockcroft-Gault) 108.5 Glucose Level 96mg/dL (70-99) Calcium Level 8.1mg/dL (8.5-10.1) Phosphorus Level 4.2mg/dL (2.6-4.7) Magnesium Level 1.6mg/dL (1.8-2.4) Laboratory Tests Test 12/04/16 12:20 12/04/16 12:22 12/04/16 13:23 12/04/16 16:25 Urine Collection Type Unknown Urine Color Yellow Urine Clarity Clear Urine pH 5.5 Urine Specific [place] >=1.030 Urine Protein Negativemg/dL (NEG-TRACE) Urine Glucose (UA) >=1000mg/dL (NEG) Urine Ketones (Stick) >=80mg/dL (NEG) Urine Blood Negative (NEG) Urine Nitrite Negative (NEG) Urine Bilirubin Negative (NEG) Urine Urobilinogen Dipstick 0.2mg/dL (0.2 mg/dL) Urine Leukocyte Esterase Negative (NEG) Urine RBC 0/HPF (0-2) Urine WBC Occ/HPF (0-4) Urine Squamous Epithelial Cells Mod/LPF Urine Bacteria 0/HPF (0-FEW) Bedside Urine HCG, Qualitative Hcg negative (Negative) White Blood Count 13.0x10^3/uL (4.0-11.0) Red Blood Count 4.69x10^6/uL (3.50-5.40) Hemoglobin 13.9g/dL (12.0-15.5) Hematocrit 44.9% (36.0-47.0) Mean Corpuscular Volume 96fL (79-100) Mean Corpuscular Hemoglobin 30pg (25-35) Mean Corpuscular Hemoglobin Concent 31g/dL (31-37) Red Cell Distribution Width 13.8% (11.5-14.5) Platelet Count 451x10^3/uL (140-400) Neutrophils (%) (Auto) 80% (31-73) Lymphocytes (%) (Auto) 18% (24-48) Monocytes (%) (Auto) 2% (0-9) Eosinophils (%) (Auto) 0% (0-3) Basophils (%) (Auto) 1% (0-3) Neutrophils # (Auto) 10.3x10^3uL (1.8-7.7) Lymphocytes # (Auto) 2.3x10^3/uL (1.0-4.8) Monocytes # (Auto) 0.3x10^3/uL (0.0-1.1) Eosinophils # (Auto) 0.0x10^3/uL (0.0-0.7) Basophils # (Auto) 0.1x10^3/uL (0.0-0.2) Sodium Level 140mmol/L (136-145) 147mmol/L (136-145) Potassium Level 5.3mmol/L (3.5-5.1) 4.9mmol/L (3.5-5.1) Chloride Level 100mmol/L (98-107) 106mmol/L (98-107) Carbon Dioxide Level < 5mmol/L (21-32) 6mmol/L (21-32) Anion Gap (6-14) 35 (6-14) Blood Urea Nitrogen 20mg/dL (7-20) 20mg/dL (7-20) Creatinine 1.0mg/dL (0.6-1.0) 1.1mg/dL (0.6-1.0) Estimated GFR (Cockcroft-Gault) 83.9 75.2 Glucose Level 674mg/dL (70-99) 497mg/dL (70-99) Calcium Level 9.0mg/dL (8.5-10.1) 9.0mg/dL (8.5-10.1) Phosphorus Level 5.3mg/dL (2.6-4.7) Magnesium Level 1.8mg/dL (1.8-2.4) Total Bilirubin 0.7mg/dL (0.2-1.0) Direct Bilirubin 0.1mg/dL (0.0-0.2) Aspartate Amino Transf (AST/SGOT) 19U/L (15-37) Alanine Aminotransferase (ALT/SGPT) 36U/L (14-59) Alkaline Phosphatase 96U/L (46-116) Troponin I Quantitative < 0.017ng/mL (0.000-0.055) Total Protein 6.9g/dL (6.4-8.2) Albumin 3.5g/dL (3.4-5.0) Lipase 74U/L (73-393) Test 12/04/16 16:55 12/04/16 18:13 12/04/16 19:17 12/04/16 20:13 Influenza Type A Antigen Negative (NEGATIVE) Influenza Type B Antigen Negative (NEGATIVE) Glucose (Fingerstick) 225mg/dL (70-99) 216mg/dL (70-99) 216mg/dL (70-99) Test 12/04/16 21:10 12/04/16 22:09 12/04/16 23:08 12/05/16 00:03 Glucose (Fingerstick) 194mg/dL (70-99) 180mg/dL (70-99) 158mg/dL (70-99) 142mg/dL (70-99) Test 12/05/16 00:50 12/05/16 01:07 12/05/16 02:10 12/05/16 03:15 Sodium Level 142mmol/L (136-145) Potassium Level 3.8mmol/L (3.5-5.1) Chloride Level 111mmol/L (98-107) Carbon Dioxide Level 20mmol/L (21-32) Anion Gap 11 (6-14) Blood Urea Nitrogen 17mg/dL (7-20) Creatinine 0.8mg/dL (0.6-1.0) Estimated GFR (Cockcroft-Gault) 108.5 Glucose Level 164mg/dL (70-99) Calcium Level 8.3mg/dL (8.5-10.1) Phosphorus Level 2.5mg/dL (2.6-4.7) Magnesium Level 1.6mg/dL (1.8-2.4) Glucose (Fingerstick) 128mg/dL (70-99) 130mg/dL (70-99) 111mg/dL (70-99) Test 12/05/16 04:18 12/05/16 05:19 12/05/16 05:25 12/05/16 06:22 Glucose (Fingerstick) 216mg/dL (70-99) 190mg/dL (70-99) 148mg/dL (70-99) White Blood Count 8.3x10^3/uL (4.0-11.0) Red Blood Count 3.83x10^6/uL (3.50-5.40) Hemoglobin 11.4g/dL (12.0-15.5) Hematocrit 35.0% (36.0-47.0) Mean Corpuscular Volume 92fL (79-100) Mean Corpuscular Hemoglobin 30pg (25-35) Mean Corpuscular Hemoglobin Concent 32g/dL (31-37) Red Cell Distribution Width 13.3% (11.5-14.5) Platelet Count 343x10^3/uL (140-400) Neutrophils (%) (Auto) 62% (31-73) Lymphocytes (%) (Auto) 30% (24-48) Monocytes (%) (Auto) 6% (0-9) Eosinophils (%) (Auto) 1% (0-3) Basophils (%) (Auto) 1% (0-3) Neutrophils # (Auto) 5.2x10^3uL (1.8-7.7) Lymphocytes # (Auto) 2.5x10^3/uL (1.0-4.8) Monocytes # (Auto) 0.5x10^3/uL (0.0-1.1) Eosinophils # (Auto) 0.1x10^3/uL (0.0-0.7) Basophils # (Auto) 0.1x10^3/uL (0.0-0.2) Sodium Level 139mmol/L (136-145) Potassium Level 4.2mmol/L (3.5-5.1) Chloride Level 109mmol/L (98-107) Carbon Dioxide Level 19mmol/L (21-32) Anion Gap 11 (6-14) Blood Urea Nitrogen 16mg/dL (7-20) Creatinine 0.8mg/dL (0.6-1.0) Estimated GFR (Cockcroft-Gault) 108.5 Glucose Level 211mg/dL (70-99) Calcium Level 8.1mg/dL (8.5-10.1) Phosphorus Level 4.6mg/dL (2.6-4.7) Magnesium Level 1.4mg/dL (1.8-2.4) Test 12/05/16 07:51 12/05/16 08:25 12/05/16 10:35 12/05/16 11:29 Glucose (Fingerstick) 72mg/dL (70-99) 247mg/dL (70-99) 351mg/dL (70-99) Sodium Level 138mmol/L (136-145) Potassium Level 4.0mmol/L (3.5-5.1) Chloride Level 108mmol/L (98-107) Carbon Dioxide Level 19mmol/L (21-32) Anion Gap 11 (6-14) Blood Urea Nitrogen 15mg/dL (7-20) Creatinine 0.8mg/dL (0.6-1.0) Estimated GFR (Cockcroft-Gault) 108.5 Glucose Level 96mg/dL (70-99) Calcium Level 8.1mg/dL (8.5-10.1) Phosphorus Level 4.2mg/dL (2.6-4.7) Magnesium Level 1.6mg/dL (1.8-2.4) Medications Current Medications Sodium Chloride (Iv Sodium Chloride 0.9% 1000ml Bag) 1,000 ml @ 1,000 mls/hr 1X ONCE IV Last administered on 12/04/16 12:46; Start 12/04/16 at 12:15; Stop 12/04/16 at 13:14; Status DC Ondansetron HCl (Zofran) 4 mg PRN Q30MIN PRN IV NAUSEA/VOMITING Last administered on 12/04/16 13:08; Start 12/04/16 at 13:15; Stop 12/05/16 at 03:44 ; Status DC Hydromorphone HCl (Dilaudid) 0.5 mg PRN Q1HR PRN IV pain Last administered on 14:12; Start 12/04/16 at 14:00 Ondansetron HCl (Zofran) 4 mg PRN Q8HRS PRN IV NAUSEA/VOMITING; Start 12/04/16 at 14:15; Stop 12/05/16 at 03:45; Status DC Morphine Sulfate 2 mg 2 mg PRN Q2HR PRN IV PAIN Last administered on 12/05/16 02:50; Start 12/04/16 at 14:15; Stop 12/05/16 at 14:14 Sodium Chloride 1,000 ml @ 125 mls/hr Q8H IV Last administered on 12/04/16 14 :52; Start 12/04/16 at 14:03; Stop 12/05/16 at 03:43; Status DC Sodium Chloride 1,000 ml @ 1,000 mls/hr Q1H IV ; Start 12/04/16 at 14:03; Stop 12/04/16 at 15:02; Status DC Insulin Human Regular/Sodium Chloride (Novolin R Vial/ Iv Normal Saline 150ml) 151.5 ml @ 0 mls/hr CONT PRN PRN IV PER PROTOCOL Last administered on 17:10; Start 12/04/16 at 14:15; Stop 12/05/16 at 03:44; Status DC Insulin Human Regular 10 unit 10 unit 1X ONCE IV Last administered on 14:51; Start 12/04/16 at 14:15; Stop 12/04/16 at 14:16; Status DC Insulin Human Regular 150 ml @ 0 mls/hr 1X ONCE IV Last administered on 15:15; Start 12/04/16 at 14:30; Stop 12/05/16 at 11:09; Status DC Sodium Chloride (Iv Sodium Chloride 0.9% 1000ml Bag) 1,000 ml @ 150 mls/hr Q6H40M IV Last administered on 12/04/16 17:15; Start 12/04/16 at 15:45; Stop 12/04/16 at 17:37; Status DC Acetaminophen (Tylenol) 325 mg PRN Q6HRS PRN PO MILD PAIN / TEMP; Start at 17:00 Acetaminophen/ Hydrocodone Bitart (Lortab 5/325) 1 tab PRN Q6HRS PRN PO MODERATE TO SEVERE PAIN Last administered on 12/05/16 11:43; Start 12/04/16 at 17:00 Hydralazine HCl (Apresoline) 10 mg PRN Q4HRS PRN IVP ELEVATED BP, SEE COMMENTS ; Start 12/04/16 at 17:00 Ondansetron HCl (Zofran) 4 mg PRN Q8HRS PRN IV NAUSEA/VOMITING; Start 12/04/16 at 17:00 Albuterol Sulfate (Ventolin Neb Soln) 2.5 mg PRN Q4HRS PRN NEB SHORTNESS OF BREATH; Start 12/04/16 at 17:00 Morphine Sulfate 1 mg 1 mg PRN Q2HR PRN IV PAIN; Start 12/04/16 at 17:00 Sodium Chloride 1,000 ml @ 250 mls/hr Q4H IV Last administered on 12/04/16 17 :29; Start 12/04/16 at 17:29; Stop 12/05/16 at 03:43; Status DC Dextrose/Sodium Chloride 1,000 ml @ 250 mls/hr Q4H IV Last administered on 08:03; Start 12/04/16 at 17:29; Stop 12/05/16 at 10:56; Status DC Insulin Human Regular 150 unit/ Sodium Chloride 151.5 ml @ 0 mls/hr CONT PRN PRN IV PER PROTOCOL; Start 12/04/16 at 17:30 Potassium Chloride 100 ml @ 100 mls/hr PRN Q1HR PRN IV SEE COMMENTS; Start at 17:30 Potassium Chloride 100 ml @ 100 mls/hr PRN Q1HR PRN IV SEE COMMENTS Last administered on 12/05/16 05:49; Start 12/04/16 at 17:30 Potassium Chloride 100 ml @ 100 mls/hr PRN Q1HR PRN IV SEE COMMENTS; Start at 17:30 Sodium Phosphate 40 mmol/Sodium Chloride 513.3333 ml @ 83.3 mls/hr 1X PRN PRN IV SEE COMMENTS; Start 12/04/16 at 17:30 Sodium Phosphate 20 mmol/Dextrose 256.6667 ml @ 62.5 mls/hr 1X PRN PRN IV SEE COMMENTS Last administered on 12/05/16 02:44; Start 12/04/16 at 17:30 Sodium Phosphate 10 mmol/Dextrose 253.3333 ml @ 62.5 mls/hr 1X PRN PRN IV SEE COMMENTS; Start 12/04/16 at 17:30 Potassium Chloride 100 ml @ 100 mls/hr Q1H IV Last administered on 12/04/16 18:59; Start 12/04/16 at 18:00; Stop 12/04/16 at 19:59; Status DC Magnesium Sulfate/ Dextrose (Magnesium Sulfate PREMIX 2GM) 50 ml @ 25 mls/hr 1X ONCE IV Last administered on 12/05/16 07:57; Start 12/05/16 at 08:00; Stop 12/05/16 at 09:59; Status DC Insulin Detemir (Levemir) 25 units QHS SQ ; Start 12/05/16 at 11:30; Stop at 11:30; Status DC Insulin Aspart (Novolog) 0-5 UNITS TIDWMEALS SQ Last administered on 12/05/16 11:45; Start 12/05/16 at 12:00 Dextrose 12.5 gm PRN Q15MIN PRN IV SEE COMMENTS; Start 12/05/16 at 11:00 Insulin Aspart (Novolog) 10 units TIDAC SQ Last administered on 12/05/16 11:44 ; Start 12/05/16 at 11:30 Insulin Detemir (Levemir) 25 units QHS SQ ; Start 12/05/16 at 21:00 Active Scripts Active Levemir Flextouch (Insulin Detemir) 100 Unit/1 Ml Insuln.pen 25 Unit SQ HS 30 Days Novolog (Insulin Aspart) 100 Unit/1 Ml Cartridge 10 Units SQ TIDAC 30 Days Vitals/I & O Vital Sign - Last 24 Hours 12/04/16 12/04/16 12/04/16 12/04/16 12:21 13:06 13:36 14:06 Temp 98.3 98.3 Pulse 124 118 122 128 Resp 18 21 B/P 119/75 124/76 107/67 118/64 Pulse Ox 100 100 100 100 O2 Delivery Room Air Room Air Room Air Room Air 12/04/16 12/04/16 12/04/16 12/04/16 14:12 14:36 16:00 17:00 Temp 97.5 97.5 Pulse 122 120 112 Resp 16 20 B/P 106/53 98/76 129/81 Pulse Ox 100 100 100 O2 Delivery Room Air Room Air Room Air Room Air 12/04/16 12/04/16 12/04/16 12/04/16 17:23 17:23 18:00 19:00 Temp 97.9 97.9 Pulse 113 118 Resp 16 16 16 20 B/P 120/58 93/63 Pulse Ox 100 100 100 100 O2 Delivery Room Air Room Air Room Air 12/04/16 12/04/16 12/04/16 12/04/16 19:32 20:00 20:51 21:00 Pulse 111 101 Resp 20 20 B/P 108/82 106/68 Pulse Ox 100 100 O2 Delivery Room Air Room Air Room Air Room Air 12/04/16 12/04/16 12/04/16 12/04/16 22:00 22:27 23:00 23:00 Pulse 110 104 Resp 18 20 18 B/P 97/66 99/61 Pulse Ox 100 100 100 O2 Delivery Room Air Room Air Room Air Room Air 12/04/16 12/05/16 12/05/16 12/05/16 23:59 00:00 01:00 02:00 Temp 97.3 97.3 Pulse 104 100 98 Resp 18 18 20 B/P 95/61 102/70 100/56 Pulse Ox 100 100 98 O2 Delivery Room Air Room Air Room Air Room Air 12/05/16 12/05/16 12/05/16/22/17 02:50 03:00 03:18 03:20 Pulse 100 Resp 20 20 20 18 B/P 117/68 Pulse Ox 100 100 100 100 O2 Delivery Room Air Room Air Room Air 12/05/16 12/05/16 12/05/16 12/05/16 04:00 04:00 04:21 05:00 Temp 97.5 97.5 Pulse 105 101 Resp 16 16 16 B/P 91/51 92/52 Pulse Ox 100 100 100 O2 Delivery Room Air Room Air Room Air 12/05/16 12/05/16 12/05/16 12/05/16 06:00 07:00 08:00 08:00 Temp 97.5 97.5 Pulse 101 100 101 Resp 12 12 13 B/P 99/63 87/53 110/64 Pulse Ox 99 99 98 O2 Delivery Room Air Room Air Room Air Room Air 12/05/16 12/05/16 12/05/16 12/05/16 09:00 10:00 11:00 11:43 Pulse 94 97 97 Resp 12 10 18 14 B/P 101/66 101/64 94/51 Pulse Ox 100 100 100 100 O2 Delivery Room Air Room Air Room Air Room Air Intake and Output 12/04/16 12/04/16 12/05/16 15:00 23:00 07:00 Intake Total 1000 ml 920 ml 4164.4 ml Output Total 0 ml 0 ml Balance 1000 ml 920 ml 4164.4 ml MARKUS CHANG MD Dec 05, 2016 12:13
[2016-12-06] MEDS: HYDROCODONE/APAP 5/325MG TABLET. PO PRN (04:01)
[2016-12-06 04:02] VITALS: BP 119/76
[2016-12-06 05:39] LABS: HEMATOCRIT 35.2 % (36.0-47.0); RED BLOOD COUNT 4.01 x10^6/uL (3.50-5.40); RED CELL DISTRIBUTION WIDTH 13.3 % (11.5-14.5); WHITE BLOOD COUNT 5.9 x10^3/uL (4.0-11.0)
[2016-12-06 06:37] LABS: CALCIUM 8.4 mg/dL (8.5-10.1); CREATININE 0.6 mg/dL (0.6-1.0); GFR 151.3; MAGNESIUM 1.6 mg/dL (1.8-2.4); POTASSIUM 3.2 mmol/L (3.5-5.1)
[2016-12-06 07:00] VITALS: BP 129/86
[2016-12-06] MEDS: INSULIN ASPART 300 UNITS/3 ML INSULN.PEN SQ SCH ×6 (07:30→17:20)
[2016-12-06] MEDS: MORPHINE SULFATE 2 MG/ML DISP.SYRIN. IV PRN (09:13)
[2016-12-06 11:00] VITALS: BP 139/91
--- NOTE | 2016-12-06 14:03 | PDOC3 ---
Discharge Summary Visit Information Date of Admission: Dec 05, 2016 Date of Discharge: Dec 06, 2016 Admitting Diagnosis Comment: DKA NOn compliance Final Diagnosis Problems Medical Problems: (1) DKA (diabetic ketoacidoses) Status: Acute Brief Hospital Course Allergies Allergies Coded Allergies Type Severity Reaction Last Updated Verified No Known Medication Allergies Allergy Unknown 09/10/16 Yes Vital Signs Vital Signs Date Time Temp Pulse Resp B/P Pulse Ox O2 Delivery O2 Flow Rate FiO2 12/06/16 11:00 97.7 98 18 139/91 100 Room Air 97.7 Lab Results Laboratory Tests Test 12/04/16 16:25 12/04/16 16:55 12/04/16 18:13 12/04/16 19:17 Sodium Level 147mmol/L (136-145) Potassium Level 4.9mmol/L (3.5-5.1) Chloride Level 106mmol/L (98-107) Carbon Dioxide Level 6mmol/L (21-32) Anion Gap 35 (6-14) Blood Urea Nitrogen 20mg/dL (7-20) Creatinine 1.1mg/dL (0.6-1.0) Estimated GFR (Cockcroft-Gault) 75.2 Glucose Level 497mg/dL (70-99) Calcium Level 9.0mg/dL (8.5-10.1) Influenza Type A Antigen Negative (NEGATIVE) Influenza Type B Antigen Negative (NEGATIVE) Glucose (Fingerstick) 225mg/dL (70-99) 216mg/dL (70-99) Test 12/04/16 20:13 12/04/16 21:10 12/04/16 22:09 12/04/16 23:08 Glucose (Fingerstick) 216mg/dL (70-99) 194mg/dL (70-99) 180mg/dL (70-99) 158mg/dL (70-99) Test 12/05/16 00:00 12/05/16 00:03 12/05/16 00:50 12/05/16 01:07 Nasal Screen MRSA (PCR) Negative (Negative) Glucose (Fingerstick) 142mg/dL (70-99) 128mg/dL (70-99) Sodium Level 142mmol/L (136-145) Potassium Level 3.8mmol/L (3.5-5.1) Chloride Level 111mmol/L (98-107) Carbon Dioxide Level 20mmol/L (21-32) Anion Gap 11 (6-14) Blood Urea Nitrogen 17mg/dL (7-20) Creatinine 0.8mg/dL (0.6-1.0) Estimated GFR (Cockcroft-Gault) 108.5 Glucose Level 164mg/dL (70-99) Calcium Level 8.3mg/dL (8.5-10.1) Phosphorus Level 2.5mg/dL (2.6-4.7) Magnesium Level 1.6mg/dL (1.8-2.4) Test 12/05/16 02:10 12/05/16 03:15 12/05/16 04:18 12/05/16 05:19 Glucose (Fingerstick) 130mg/dL (70-99) 111mg/dL (70-99) 216mg/dL (70-99) 190mg/dL (70-99) Test 12/05/16 05:25 12/05/16 06:22 12/05/16 07:51 12/05/16 08:25 White Blood Count 8.3x10^3/uL (4.0-11.0) Red Blood Count 3.83x10^6/uL (3.50-5.40) Hemoglobin 11.4g/dL (12.0-15.5) Hematocrit 35.0% (36.0-47.0) Mean Corpuscular Volume 92fL (79-100) Mean Corpuscular Hemoglobin 30pg (25-35) Mean Corpuscular Hemoglobin Concent 32g/dL (31-37) Red Cell Distribution Width 13.3% (11.5-14.5) Platelet Count 343x10^3/uL (140-400) Neutrophils (%) (Auto) 62% (31-73) Lymphocytes (%) (Auto) 30% (24-48) Monocytes (%) (Auto) 6% (0-9) Eosinophils (%) (Auto) 1% (0-3) Basophils (%) (Auto) 1% (0-3) Neutrophils # (Auto) 5.2x10^3uL (1.8-7.7) Lymphocytes # (Auto) 2.5x10^3/uL (1.0-4.8) Monocytes # (Auto) 0.5x10^3/uL (0.0-1.1) Eosinophils # (Auto) 0.1x10^3/uL (0.0-0.7) Basophils # (Auto) 0.1x10^3/uL (0.0-0.2) Sodium Level 139mmol/L (136-145) 138mmol/L (136-145) Potassium Level 4.2mmol/L (3.5-5.1) 4.0mmol/L (3.5-5.1) Chloride Level 109mmol/L (98-107) 108mmol/L (98-107) Carbon Dioxide Level 19mmol/L (21-32) 19mmol/L (21-32) Anion Gap 11 (6-14) 11 (6-14) Blood Urea Nitrogen 16mg/dL (7-20) 15mg/dL (7-20) Creatinine 0.8mg/dL (0.6-1.0) 0.8mg/dL (0.6-1.0) Estimated GFR (Cockcroft-Gault) 108.5 108.5 Glucose Level 211mg/dL (70-99) 96mg/dL (70-99) Calcium Level 8.1mg/dL (8.5-10.1) 8.1mg/dL (8.5-10.1) Phosphorus Level 4.6mg/dL (2.6-4.7) 4.2mg/dL (2.6-4.7) Magnesium Level 1.4mg/dL (1.8-2.4) 1.6mg/dL (1.8-2.4) Glucose (Fingerstick) 148mg/dL (70-99) 72mg/dL (70-99) Test 12/05/16 10:35 12/05/16 11:29 12/05/16 16:30 12/05/16 17:36 Glucose (Fingerstick) 247mg/dL (70-99) 351mg/dL (70-99) 297mg/dL (70-99) Magnesium Level 1.8mg/dL (1.8-2.4) Test 12/05/16 21:04 12/06/16 05:00 12/06/16 07:38 12/06/16 12:25 Glucose (Fingerstick) 242mg/dL (70-99) 61mg/dL (70-99) 167mg/dL (70-99) White Blood Count 5.9x10^3/uL (4.0-11.0) Red Blood Count 4.01x10^6/uL (3.50-5.40) Hemoglobin 12.0g/dL (12.0-15.5) Hematocrit 35.2% (36.0-47.0) Mean Corpuscular Volume 88fL (79-100) Mean Corpuscular Hemoglobin 30pg (25-35) Mean Corpuscular Hemoglobin Concent 34g/dL (31-37) Red Cell Distribution Width 13.3% (11.5-14.5) Platelet Count 342x10^3/uL (140-400) Sodium Level 142mmol/L (136-145) Potassium Level 3.2mmol/L (3.5-5.1) Chloride Level 109mmol/L (98-107) Carbon Dioxide Level 23mmol/L (21-32) Anion Gap 10 (6-14) Blood Urea Nitrogen 16mg/dL (7-20) Creatinine 0.6mg/dL (0.6-1.0) Estimated GFR (Cockcroft-Gault) 151.3 Glucose Level 124mg/dL (70-99) Calcium Level 8.4mg/dL (8.5-10.1) Magnesium Level 1.6mg/dL (1.8-2.4) Laboratory Tests Test 12/05/16 16:30 12/05/16 17:36 12/05/16 21:04 12/06/16 05:00 Magnesium Level 1.8mg/dL (1.8-2.4) 1.6mg/dL (1.8-2.4) Glucose (Fingerstick) 297mg/dL (70-99) 242mg/dL (70-99) White Blood Count 5.9x10^3/uL (4.0-11.0) Red Blood Count 4.01x10^6/uL (3.50-5.40) Hemoglobin 12.0g/dL (12.0-15.5) Hematocrit 35.2% (36.0-47.0) Mean Corpuscular Volume 88fL (79-100) Mean Corpuscular Hemoglobin 30pg (25-35) Mean Corpuscular Hemoglobin Concent 34g/dL (31-37) Red Cell Distribution Width 13.3% (11.5-14.5) Platelet Count 342x10^3/uL (140-400) Sodium Level 142mmol/L (136-145) Potassium Level 3.2mmol/L (3.5-5.1) Chloride Level 109mmol/L (98-107) Carbon Dioxide Level 23mmol/L (21-32) Anion Gap 10 (6-14) Blood Urea Nitrogen 16mg/dL (7-20) Creatinine 0.6mg/dL (0.6-1.0) Estimated GFR (Cockcroft-Gault) 151.3 Glucose Level 124mg/dL (70-99) Calcium Level 8.4mg/dL (8.5-10.1) Test 12/06/16 07:38 12/06/16 12:25 Glucose (Fingerstick) 61mg/dL (70-99) 167mg/dL (70-99) Brief Hospital Course Ms. Dawson is a 21 old known to us,a dmitted for DKA again, Snu raye in home meds. She just needs to take her own home meds,. She doesnt bec SP,. ICU 1 night on DKA protocol,joi paige Pt seen and examined DispO; home dc 32 mins > 50% counselling again COnsultsL none Discharge Information Condition at Discharge: Improved, Stable Disposition/Orders: D/C to Home Scheduled Insulin Aspart (Novolog) 10 UNITS SQ TIDAC Insulin Detemir (Levemir Flextouch) 25 UNIT SQ HS LC ABRAHAM MD Dec 06, 2016 14:03
[2016-12-06 14:57] VITALS: BP 127/80
[2016-12-06] MEDS ORDERED: INSULIN ASPART 300 UNITS/3 ML INSULN.PEN SQ ONE (17:30)
== END 2016-12-06 14:00 | disposition home or self-care (01) | DRG 638 ==
LOC: ER 11:45 → 1 WEST ICU 14:04 → 6 SOUTH 12-06 05:50
PROVIDERS: ADMIT Internal Medicine; ATTEND Internal Medicine
DX: E10.10 Type 1 diabetes mellitus with ketoacidosis without coma (principal); R65.10 Systemic inflammatory response syndrome (SIRS) of non-infectious origin without acute organ dysfunction; E87.2 Acidosis; E87.5 Hyperkalemia; E86.0 Dehydration; F12.90 Cannabis use, unspecified, uncomplicated; Z91.19 Patient's noncompliance with other medical treatment and regimen; Z82.49 Family history of ischemic heart disease and other diseases of the circulatory system; Z83.3 Family history of diabetes mellitus
CPT/HCPCS: 36415; 71010; 80048; 80076; 81001; 81025; 82947; 83690; 83735; 84100; 84484; 85027; 87641; 87804; 93005; 94250; 96361; 96374; 96375; J1170; J1815; J2270; J2405; J3480; J7030; J7060; 99285-25

== ENCOUNTER 2016-12-31 11:35 | Emergency (ER) | payer SELFPAY ==
[~2016-12-31] VITALS: Ht 160 cm; Wt 54.4 kg
[2016-12-31 11:52] VITALS: BP 122/73
[2016-12-31] MEDS ORDERED: CLIN-44 PO (12:17)
--- NOTE | 2016-12-31 12:17 | PHYS DOC ---
Past Medical History Past Medical History: Diabetes-Type I Additional Past Medical Histor: MISCARRIAGES Past Surgical History: Other Additional Past Surgical Histo: I&D abscess groin Alcohol Use: None Drug Use: None Adult General Chief Complaint Chief Complaint: ABSCESS HPI HPI Patient is a 21 year old female who presents with an abscess on the left facial area that began 2 days ago. Patient states it began as a pimple and has grown bigger and red. Patient denies any drainage from the area. Patient has history of diabetes type 1, she states her blood sugars have been in the 90s. Review of Systems Review of Systems Constitutional: Denies fever or chills [] Eyes: Denies change in visual acuity, redness, or eye pain [] Musculoskeletal: Denies back pain or joint pain [] Integument: Left facial abscess Neurologic: Denies headache, focal weakness or sensory changes [] Endocrine: Denies polyuria or polydipsia [] Allergies Allergies Allergies Coded Allergies Type Severity Reaction Last Updated Verified No Known Medication Allergies Allergy Unknown 12/31/16 Yes Physical Exam Physical Exam Constitutional: Well developed, well nourished, no acute distress, non-toxic appearance. [] HENT: Normocephalic, atraumatic, bilateral external ears normal, oropharynx moist, no oral exudates, nose normal. [] Eyes: PERRLA, EOMI, conjunctiva normal, no discharge. [] Skin: Left cheek area with an area of induration approximately 2 x 1 cm, the area is red very firm tender to palpate and warm with no fluctuance. Back: No tenderness, no CVA tenderness. [] Extremities: No tenderness, no cyanosis, no clubbing, ROM intact, no edema. [] Neurologic: Alert and oriented X 3, normal motor function, normal sensory function, no focal deficits noted. [] Psychologic: Affect normal, judgement normal, mood normal. [] Current Patient Data Vital Signs Vital Signs Date Time Temp Pulse Resp B/P Pulse Ox O2 Delivery O2 Flow Rate FiO2 12/31/16 11:52 98.0 119 18 98 Room Air 98.0 Lab Values Laboratory Tests Test 12/31/16 11:18 POC Urine HCG, Qualitative Hcg negative (Negative) EKG EKG [] Radiology/Procedures Radiology/Procedures [] Course & Med Decision Making Course & Med Decision Making Pertinent Labs and Imaging studies reviewed. (See chart for details) Patient has an abscess of the left cheek that is not ready to be drained. Recommended warm compresses to the area. Discharged with clindamycin for 10 days. F/u with PCP in one week Seema Disclaimer Seema Disclaimer This electronic medical record was generated, in whole or in part, using a voice recognition dictation system. Departure Departure Impression: Primary Impression: Facial abscess Disposition: HOME, SELF-CARE Condition: STABLE Referrals: NO PCP (PCP) Follow-up with your own doctor in one week Patient Instructions: Abscess Additional Instructions: You were seen for facial abscess. Apply warm compresses to the area twice a day , keep it clean and dry. You can wash the area with soap and water. Come back to the ED at any point symptoms worsen. Scripts Hydrocodone/Apap 5-325 ([facility] 5-325 Tablet)1 Each Tablet1-2 Tab PO Q4-6HRS #20 TAB Prov:BHARATH NAIDU APRN 12/31/16 Clindamycin Hcl 150 Mg Capsule3 Cap PO TID #90 CAP Prov:BHARATH NAIDU APRN 12/31/16 BHARATH NAIDU APRN Dec 31, 2016 12:17
[2016-12-31] MEDS ORDERED: HYDR-971 PO (12:24)
== END 2016-12-31 12:23 | disposition home or self-care (01) ==
LOC: ER 11:35
DX: L02.01 Cutaneous abscess of face (principal); E10.9 Type 1 diabetes mellitus without complications; Z79.4 Long term (current) use of insulin
CPT/HCPCS: 81025; 99283

== ENCOUNTER 2017-01-04 08:27 | Inpatient (IN) | payer SELFPAY ==
[~2017-01-04] VITALS: Ht 160 cm; Wt 61.8 kg
[~2017-01-04 08:27] MED LIST changes: +CLIN-44 PO; +HYDR-971 PO
[2017-01-04] MEDS ORDERED: IV NORMAL SALINE 1000ML BAG 1,000 ML IV SCH (08:49)
[2017-01-04] MEDS ORDERED: ONDANSETRON PF 4 MG/2 ML VIAL. IV ONE ×2 (09:00→10:30)
[2017-01-04] MEDS ORDERED: LIDOCAINE 1% / SOD BICARB 8.4% 20 ML VIAL. IJ ONE (09:00)
[2017-01-04] MEDS ORDERED: 0.9 % SODIUM CHLORIDE 10 ML DISP.SYRIN. IV PRN (09:00)
[2017-01-04] MEDS ORDERED: FENTANYL PF 100 MCG/2 ML VIAL. IV ONE ×2 (09:00→11:00)
--- NOTE | 2017-01-04 09:06 | PHYS DOC ---
Past Medical History Past Medical History: Diabetes-Type I, GERD Additional Past Medical Histor: MISCARRIAGES Past Surgical History: Other Additional Past Surgical Histo: I&D abscess groin Alcohol Use: None Drug Use: None Adult General Chief Complaint Chief Complaint: ABDOMINAL PAIN HPI HPI Patient is a 21 year old female with a history of insulin-dependent diabetes, presents emergency Department today with complaint of nausea and vomiting with epigastric discomfort that began 2 days ago. Patient states that she also has an abscess to the left side of her face is been increasing in size even though she's been taken antibiotics for the past 4 days. Patient was seen here 4 days ago and prescribed Bactrim. She states that she's been taking it without any resolution of the abscess to her face. Patient reports that she does have a prior history of diabetic ketoacidosis. Last time she was hospitalized for this was at this facility in November. She does not currently have a primary care doctor. Patient states that she checked her blood sugar last night and it was "190". He denies fevers or chills. She doesn't admit to generalized weakness. She denies any syncopal or presyncopal symptoms. Review of Systems Review of Systems Constitutional: Denies fever or chills [] Eyes: Denies change in visual acuity, redness, or eye pain [] HENT: Denies nasal congestion or sore throat [] Respiratory: Denies cough or shortness of breath [] Cardiovascular: No additional information not addressed in HPI [] GI: Denies abdominal pain, nausea, vomiting, bloody stools or diarrhea [] : Denies dysuria or hematuria [] Musculoskeletal: Denies back pain or joint pain [] Integument: Denies rash or skin lesions [] Neurologic: Denies headache, focal weakness or sensory changes [] Endocrine: Denies polyuria or polydipsia [] Current Medications Current Medications Current Medications Medications (Trade) Dose Ordered Sig/Bakari Start Time Stop Time Status Last Admin Dose Admin Fentanyl Citrate (Fentanyl 2ml Vial) 50 mcg 1X ONCE 01/04/17 09:00 01/04/17 09:01 DC 01/04/17 09:14 50 MCG Lidocaine/Sodium Bicarbonate (Buffered Lidocaine 1%) 20 ml 1X ONCE 01/04/17 09:00 01/04/17 09:01 DC 01/04/17 09:15 20 ML Ondansetron HCl (Zofran) 4 mg 1X ONCE 01/04/17 09:00 01/04/17 09:01 DC 01/04/17 09:13 4 MG Sodium Chloride (Iv Sodium Chloride 0.9% 1000ml Bag) 1,000 ml @ 1,000 mls/hr Q1H 01/04/17 08:49 01/04/17 09:48 DC 01/04/17 09:15 1,000 MLS/HR Sodium Chloride 3 ml 3 ml QSHIFT PRN 01/04/17 09:00 Allergies Allergies Allergies Coded Allergies Type Severity Reaction Last Updated Verified No Known Medication Allergies Allergy Unknown 12/31/16 Yes Physical Exam Physical Exam Constitutional: Well developed, well nourished, mild distress, non-toxic appearance. The smell of acetone is readily apparent in the room. HENT: Normocephalic, atraumatic, bilateral external ears normal, oropharynx moist, no oral exudates, nose normal. [] Eyes: PERRLA, EOMI, conjunctiva normal, no discharge. [] Neck: Normal range of motion, no tenderness, supple, no stridor. [] Cardiovascular:Heart rate 114 with regular rhythm, no murmur Lungs & Thorax: Shows no evidence respiratory distress respiratory fatigue. Respiratory rate is 2o. There is no assessory muscle use or posturing. There are no Kusmal respirations. Oxygen saturation is 100% on room air. Abdomen: Bowel sounds normal, soft, no tenderness, no masses, no pulsatile masses. Skin: 2 cm indurated cutaneous abscess to patient's left cheek. There is no evidence of preseptal or orbital cellulitis. There is no mucocutaneous involvement. Back: No tenderness, no CVA tenderness. [] Extremities: No tenderness, no cyanosis, no clubbing, ROM intact, no edema. [] Neurologic: Alert and oriented X 3, normal motor function, normal sensory function, no focal deficits noted. [] Psychologic: Affect normal, judgement normal, mood normal. [] Current Patient Data Vital Signs Vital Signs Date Time Temp Pulse Resp B/P Pulse Ox O2 Delivery O2 Flow Rate FiO2 01/04/17 10:15 112 20 119/70 100 Room Air 01/04/17 08:46 98.3 98.3 Lab Values Laboratory Tests Test 01/04/17 07:44 01/04/17 08:35 3/24/17 09:00 01/04/17 09:35 POC Urine HCG, Qualitative Hcg negative (Negative) Urine Collection Type Unknown Urine Color Yellow Urine Clarity Clear Urine pH 5.0 Urine Specific [place] >=1.030 Urine Protein Negativemg/dL (NEG-TRACE) Urine Glucose (UA) >=1000mg/dL (NEG) Urine Ketones (Stick) >=80mg/dL (NEG) Urine Blood Trace (NEG) Urine Nitrite Negative (NEG) Urine Bilirubin Negative (NEG) Urine Urobilinogen Dipstick 0.2mg/dL (0.2 mg/dL) Urine Leukocyte Esterase Negative (NEG) Urine RBC 1-2/HPF (0-2) Urine WBC 0/HPF (0-4) Urine Squamous Epithelial Cells Mod/LPF Urine Bacteria 0/HPF (0-FEW) White Blood Count 9.2x10^3/uL (4.0-11.0) Red Blood Count 4.90x10^6/uL (3.50-5.40) Hemoglobin 14.4g/dL (12.0-15.5) Hematocrit 44.8% (36.0-47.0) Mean Corpuscular Volume 91fL (79-100) Mean Corpuscular Hemoglobin 29pg (25-35) Mean Corpuscular Hemoglobin Concent 32g/dL (31-37) Red Cell Distribution Width 13.1% (11.5-14.5) Platelet Count 470x10^3/uL (140-400) H Neutrophils (%) (Auto) 79% (31-73) H Lymphocytes (%) (Auto) 17% (24-48) L Monocytes (%) (Auto) 3% (0-9) Eosinophils (%) (Auto) 0% (0-3) Basophils (%) (Auto) 1% (0-3) Neutrophils # (Auto) 7.3x10^3uL (1.8-7.7) Lymphocytes # (Auto) 1.5x10^3/uL (1.0-4.8) Monocytes # (Auto) 0.3x10^3/uL (0.0-1.1) Eosinophils # (Auto) 0.0x10^3/uL (0.0-0.7) Basophils # (Auto) 0.1x10^3/uL (0.0-0.2) Sodium Level 136mmol/L (136-145) Potassium Level 4.2mmol/L (3.5-5.1) Chloride Level 96mmol/L (98-107) L Carbon Dioxide Level 16mmol/L (21-32) L Anion Gap 24 (6-14) H Blood Urea Nitrogen 17mg/dL (7-20) Creatinine 0.9mg/dL (0.6-1.0) Estimated GFR (Cockcroft-Gault) 94.7 BUN/Creatinine Ratio 19 (6-20) Glucose Level 485mg/dL (70-99) H Serum Osmolality 311mOsm/Kg (279-304) H Calcium Level 9.7mg/dL (8.5-10.1) Total Bilirubin 1.0mg/dL (0.2-1.0) Aspartate Amino Transferase (AST) 39U/L (15-37) H Alanine Aminotransferase (ALT) 38U/L (14-59) Alkaline Phosphatase 158U/L (46-116) H Total Protein 8.0g/dL (6.4-8.2) Albumin 3.5g/dL (3.4-5.0) Albumin/Globulin Ratio 0.8 (1.0-1.7) L Lipase 52U/L (73-393) L O2 Saturation 97% (92-99) Arterial Blood pH 7.28 (7.35-7.45) L Arterial Blood pCO2 at Patient Temp 30mmHg (35-46) L Arterial Blood pO2 at Patient Temp 114mmHg (85-108) H Arterial Blood HCO3 14mmol/L (21-28) L Arterial Blood Base Excess -12mmol/L (-3-3) L FiO2 21.0 Laboratory Tests 01/04/17 09:00 Laboratory Tests 01/04/17 09:00 EKG EKG [] Radiology/Procedures Radiology/Procedures Procedure note: 2 cm fluctuant abscess overlying the left cheek was prepped with Betadine solution and anesthetized with buffered 1% lidocaine. The abscess was incised with an 11 blade scalpel. There was immediate expression of a moderate amount of purulent material. There were no palpable sinus tracts. Patient tolerated the procedure well. [] Course & Med Decision Making Course & Med Decision Making Patient was diagnosed with diabetes at the age of 12. She has been on insulin pump in the past without success. Patient currently does not have a primary care doctor and appears to lack much knowledge as to management and control of her diabetes. I believe this patient will definitely benefit from some very strict follow-up as well as diabetic education while she is hospitalized and have a diabetic pharmacy benefit manager/educator to help her with management of her chronic disease. Patient received a bolus of normal saline of 30 mL/kg. She is placed on an insulin drip and clindamycin for her facial abscess. She will be admitted to the ICU under Dr Kuo for further management. Dragon Disclaimer Dragon Disclaimer This electronic medical record was generated, in whole or in part, using a voice recognition dictation system. Departure Departure Impression: Primary Impression: DKA (diabetic ketoacidoses) Additional Impression: Facial abscess Disposition: ADMITTED INPATIENT Admitting Physician: Flori Kuo Condition: STABLE Referrals: NO PCP (PCP) Problem Qualifiers TIFFANIE PEARL Jan 04, 2017 09:06
[2017-01-04 09:23] LABS: BASO # 0.1 x10^3/uL (0.0-0.2); BASO % 1 % (0-3); EOS % 0 % (0-3); HEMATOCRIT 44.8 % (36.0-47.0); HEMOGLOBIN 14.4 g/dL (12.0-15.5); LYMPH # 1.5 x10^3/uL (1.0-4.8); LYMPH % 17 % (24-48); MEAN CORPUSCULAR HEMOGLOBIN 29 pg (25-35); MEAN CORPUSCULAR HGB CONC 32 g/dL (31-37); MEAN CORPUSCULAR VOLUME 91 fL (79-100); MONO % 3 % (0-9); NEUT % 79 % (31-73); PLATELET COUNT 470 x10^3/uL (140-400); RED CELL DISTRIBUTION WIDTH 13.1 % (11.5-14.5); WHITE BLOOD COUNT 9.2 x10^3/uL (4.0-11.0)
[2017-01-04 09:32] LABS: BILIRUBIN,URINE NEGATIVE (NEG); GLUCOSE,URINE >=1000 mg/dL (NEG); NITRITE,URINE NEGATIVE (NEG); PROTEIN,URINE NEGATIVE (NEG-TRACE); UROBILINOGEN,URINE 0.2 mg/dL (0.2 mg/dL)
[2017-01-04 09:52] LABS: BACTERIA,URINE 0 /HPF (0-FEW); SQUAMOUS EPITHELIAL CELL,UR MOD /LPF; WBC,URINE 0 /HPF (0-4)
[2017-01-04 09:55] LABS: CALCIUM 9.7 mg/dL (8.5-10.1); CREATININE 0.9 mg/dL (0.6-1.0); GFR 94.7; POTASSIUM 4.2 mmol/L (3.5-5.1)
[2017-01-04 10:01] LABS: ALBUMIN 3.5 g/dL (3.4-5.0); ALBUMIN/GLOBULIN RATIO 0.8 (1.0-1.7)
[2017-01-04 10:45] LABS: HCO3 ABG 14 mmol/L (21-28); PCO2 ABG 30 mmHg (35-46); PH ABG 7.28 (7.35-7.45); PO2 ABG 114 mmHg (85-108); SAT O2 ABG 97 % (92-99)
[2017-01-04] MEDS ORDERED: ONDANSETRON PF 4 MG/2 ML VIAL. IV PRN ×2 (10:45→12:00)
[2017-01-04] MEDS ORDERED: CLINDAMYCIN 600MG PREMIX 50 ML IV ONE (11:00)
[2017-01-04] MEDS: INSULIN REGULAR VIAL 150 UNIT in 0.9 % SODIUM CHLORIDE 150ML 150 ML IV PRN ×2 (11:10→12:43)
[2017-01-04] MEDS ORDERED: PIP/TAZO PER PHARMACY MC PRN (12:00)
[2017-01-04] MEDS ORDERED: VANCOMYCIN 1.25 GM in IV NORMAL SALINE 250ML 250 ML IV SCH (12:00)
[2017-01-04] MEDS ORDERED: ACETAMINOPHEN 325 MG TABLET. PO PRN (12:00)
--- NOTE | 2017-01-04 12:10 | ACF ---
Admission Forms Criteria DIABETES Clinical Indications for Admission to Inpatient Care (Place 'X' for any and all applicable criteria): Admission is indicated by presence of ALL (if I & II) or ANY ONE (if III or IV) of the following (1)(2)(3)(4): [ ]I. Diabetes is uncontrolled as indicated by ANY ONE of the following: [ ]a) Diabetic ketoacidosis as indicated by ALL of the following (8): [ ]i) Hyperglycemia (eg, plasma glucose greater than 200 mg/ dL (11.1 mmol/L)) [ ]ii) Acidosis (eg, arterial pH less than 7.30, serum bicarbonate level less than 15 mEq/L (mmol/L)) [ ]iii) Moderate ketonuria or ketonemia [ ]b) Hyperglycemic hyperosmolar state as indicated by ALL of the following(9)(10): [ ]i) Neurologic dysfunction (eg, stupor, coma, hemiparesis , seizure)(13) [ ]ii) Plasma glucose greater than 600 mg/dL (33.3 mmol/L) [ ]iii) Serum osmolality greater than 320 mOsm/kg (mmol/kg) [ ]c) Severe signs or symptoms secondary to hyperglycemia indicated by ANY ONE of the following: [ ]i) Altered mental status(10) [ ]ii) Significant hypovolemia or dehydration [ ]iii) Intractable nausea or vomiting [ ]iv) Unexplained fever or severe infection [ ]v) Severe electrolyte abnormality (eg, hypokalemia, hyperkalemia, hypernatremia) [ ]II. Management at other levels of care (Also use Diabetes: Observation Care as appropriate) is not feasible because of ANY ONE of the following: [ ]a) Condition was not adequately corrected with treatment at other levels of care. [ ]b) Treatment at other levels of care is not appropriate because of condition severity (eg, hyperosmolar coma). [X]III. Contraindications and/or Inappropriate clinical situations for Observational Care in patients with Diabetes, when ANY ONE of the following is required: [X]a) Patient require specific diagnostic workup or therapeutic intervention 22 [ ]b) Patient with abnormal vital signs or altered mental status 23 [ ]IV. General contraindications and/or Inappropriate clinical situations for Observational Care in patients with Diabetes, when ANY ONE of the following is required: [ ]a) Prediction of prolongation of LOS based on ANY ONE of the following may be considered as a contraindication for observational care 2, 3, 4, 5, 6, 7, 8, 9, 10, 11 [ ]i) Age > 65 yrs. [ ]ii) Patient arriving by ambulance [ ]iii) Patient with high acuity [ ]iv) Patient requiring vital sign monitoring [ ]v) Patient on IV medication [ ]b) Systolic blood pressures 180mmHg 3,12 [ ]c) Patient with altered mental status including delirium and other alteration of consciousness, (3) [ ]d) Patient whose discharge disposition will be to a detention home or rehabilitation home should not be managed in Emergency Department Observation Unit. CMS rule requires 3 days hospital stay before such placement.3,13 [ ]e) Patient with failure to thrive due to broad array of etiologies 3,16,17 [ ]f) Inability to ambulate 3,14 Extended stay beyond goal length of stay may be needed for(3)(20): [ ]a) Treatment of precipitating causes [ ]b) Development of hypoglycemia [ ]c) Complications of treatment [ ]d) Complications of decompensated diabetes (eg, acute gastric dilatation, persistent metabolic or neurologic derangement) [ ]e) Active Comorbidities [ ]f) Older patients( 65 years or older) The original [employer] content created by [employer] has been revised. The portions of the content which have been revised are identified through the use of italic text or in bold,and [facility] has neither reviewed nor approved the modified material. All other unmodified content is copyright [facility]. Please see references footnoted in the original [facility] edition 2015 Admission Criteria Met?: Yes TEMI CEJA Jan 04, 2017 12:10
--- NOTE | 2017-01-04 12:10 | PDOC1 ---
History and Physical Date of Admission Date of Admission 01/04/17 Identification/Chief Complaint Chief Complaint N/V, left facial pain Problems: Source Source: Chart review, Patient History of Present Illness History of Present Illness HPI HPI Patient is a 21 year old female with a history of insulin-dependent diabetes, comes to ER for left facial pain. Pt has no insurance, medicaid pending, comes here every month for DKA, on levemir 25u qhs, aspart 10u tid, saying sometimes early in the am glucose is 50s , before each meal 120-130s. Pt started to have left face swelling, pain, red about 1 week ago, came to ER and was given bactrim bid. PT SAID SHE is taking the meds, but it is getting worse, denies fever, chills. She had N/V for 2 days. mild cough, no sputum, no chest pain. + constipation. Pt got I AND D in ER before i come. was found DKA again this time. Past Medical History Cardiovascular: No pertinent hx Pulmonary: Asthma GI: GERD, Other Heme/Onc: No pertinent hx Hepatobiliary: No pertinent hx Psych: No pertinent hx Rheumatologic: No pertinent hx Infectious disease: No pertinent hx Renal/: No pertinent hx Endocrine: Diabetes Past Surgical History Past Surgical History: No pertinent history Family History Family History: No Significant, Other Social History Smoke: No ALCOHOL: rare Drugs: None, Marijuana Current Problem List Problem List Problems Medical Problems: (1) DKA (diabetic ketoacidoses) Status: Acute (2) Facial abscess Status: Acute Current Medications Current Medications Current Medications Medications (Trade) Dose Ordered Sig/Bakari Start Time Stop Time Status Last Admin Dose Admin Clindamycin Phosphate (Cleocin 600 Mg Premix) 50 ml @ 100 mls/hr 1X ONCE 01/04/17 11:00 01/04/17 11:29 DC Fentanyl Citrate (Fentanyl 2ml Vial) 50 mcg 1X ONCE 01/04/17 09:00 01/04/17 09:01 DC 01/04/17 09:14 50 MCG Fentanyl Citrate 50 mcg 50 mcg 1X ONCE 01/04/17 11:00 01/04/17 11:01 DC 01/04/17 11:28 50 MCG Insulin Human Regular/Sodium Chloride (Novolin R Vial/ Iv Normal Saline 150ml) 151.5 ml @ 0 mls/hr CONT PRN 01/04/17 10:30 01/04/17 11:10 8.5 MLS/HR Lidocaine/Sodium Bicarbonate 20 ml 20 ml 1X ONCE 01/04/17 09:00 01/04/17 09:01 DC 01/04/17 09:15 20 ML Ondansetron HCl (Zofran) 4 mg PRN Q8HRS PRN 01/04/17 10:45 01/05/17 10:44 01/04/17 11:04 4 MG Sodium Chloride (Iv Sodium Chloride 0.9% 1000ml Bag) 1,000 ml @ 1,000 mls/hr Q1H 01/04/17 08:49 01/04/17 09:48 DC 01/04/17 09:15 1,000 MLS/HR Sodium Chloride 3 ml 3 ml QSHIFT PRN 01/04/17 09:00 Allergies Allergies Allergies Coded Allergies Type Severity Reaction Last Updated Verified No Known Medication Allergies Allergy Unknown 12/31/16 Yes ROS Review of System CONSTITUTIONAL: No fever or chills EYES: No recent changes SKIN: No rash or itching CARDIOVASCULAR: No chest pain, syncope, palpitations, or edema RESPIRATORY: No SOB or cough GASTROINTESTINAL: No nausea, vomiting or abdominal pain NEUROLOGICAL: No headaches or weakness ENDOCRINE: No cold or heat intolerance GENITOURINARY: No urgency or frequency of urination MUSCULOSKELETAL: No back pain or joint pain LYMPHATICS: No enlarged lymph nodes PSYCHIATRIC: No anxiety or depression Physical Exam Physical Exam GEN.: No apparent distress. Alert and oriented. HEENT: Head is normocephalic, atraumatic. left facial has dressing on, post I and d IN ER 01/04 NECK: Supple. LUNGS: Clear to auscultation. HEART: RRR, S1, S2 present. Peripheral pulses intact ABDOMEN: Soft, nontender. Positive bowel sounds. EXTREMITIES: Without any cyanosis. NEUROLOGIC: Normal speech, normal tone PSYCHIATRIC: Normal affect, normal mood. SKIN: No ulcerations Vitals Vitals Vital Signs Date Time Temp Pulse Resp B/P Pulse Ox O2 Delivery O2 Flow Rate FiO2 01/04/17 11:41 112 20 125/73 100 Room Air 01/04/17 08:46 98.3 98.3 Labs Labs Laboratory Tests Test 01/04/17 07:44 01/04/17 08:35 01/04/17 09:00 01/04/17 09:35 Bedside Urine HCG, Qualitative Hcg negative (Negative) Urine Collection Type Unknown Urine Color Yellow Urine Clarity Clear Urine pH 5.0 Urine Specific [place] >=1.030 Urine Protein Negativemg/dL (NEG-TRACE) Urine Glucose (UA) >=1000mg/dL (NEG) Urine Ketones (Stick) >=80mg/dL (NEG) Urine Blood Trace (NEG) Urine Nitrite Negative (NEG) Urine Bilirubin Negative (NEG) Urine Urobilinogen Dipstick 0.2mg/dL (0.2 mg/dL) Urine Leukocyte Esterase Negative (NEG) Urine RBC 1-2/HPF (0-2) Urine WBC 0/HPF (0-4) Urine Squamous Epithelial Cells Mod/LPF Urine Bacteria 0/HPF (0-FEW) White Blood Count 9.2x10^3/uL (4.0-11.0) Red Blood Count 4.90x10^6/uL (3.50-5.40) Hemoglobin 14.4g/dL (12.0-15.5) Hematocrit 44.8% (36.0-47.0) Mean Corpuscular Volume 91fL (79-100) Mean Corpuscular Hemoglobin 29pg (25-35) Mean Corpuscular Hemoglobin Concent 32g/dL (31-37) Red Cell Distribution Width 13.1% (11.5-14.5) Platelet Count 470x10^3/uL (140-400) Neutrophils (%) (Auto) 79% (31-73) Lymphocytes (%) (Auto) 17% (24-48) Monocytes (%) (Auto) 3% (0-9) Eosinophils (%) (Auto) 0% (0-3) Basophils (%) (Auto) 1% (0-3) Neutrophils # (Auto) 7.3x10^3uL (1.8-7.7) Lymphocytes # (Auto) 1.5x10^3/uL (1.0-4.8) Monocytes # (Auto) 0.3x10^3/uL (0.0-1.1) Eosinophils # (Auto) 0.0x10^3/uL (0.0-0.7) Basophils # (Auto) 0.1x10^3/uL (0.0-0.2) Sodium Level 136mmol/L (136-145) Potassium Level 4.2mmol/L (3.5-5.1) Chloride Level 96mmol/L (98-107) Carbon Dioxide Level 16mmol/L (21-32) Anion Gap 24 (6-14) Blood Urea Nitrogen 17mg/dL (7-20) Creatinine 0.9mg/dL (0.6-1.0) Estimated GFR (Cockcroft-Gault) 94.7 BUN/Creatinine Ratio 19 (6-20) Glucose Level 485mg/dL (70-99) Serum Osmolality 311mOsm/Kg (279-304) Calcium Level 9.7mg/dL (8.5-10.1) Total Bilirubin 1.0mg/dL (0.2-1.0) Aspartate Amino Transf (AST/SGOT) 39U/L (15-37) Alanine Aminotransferase (ALT/SGPT) 38U/L (14-59) Alkaline Phosphatase 158U/L (46-116) Total Protein 8.0g/dL (6.4-8.2) Albumin 3.5g/dL (3.4-5.0) Albumin/Globulin Ratio 0.8 (1.0-1.7) Lipase 52U/L (73-393) O2 Saturation 97% (92-99) Arterial Blood pH 7.28 (7.35-7.45) Arterial Blood pCO2 at Patient Temp 30mmHg (35-46) Arterial Blood pO2 at Patient Temp 114mmHg (85-108) Arterial Blood HCO3 14mmol/L (21-28) Arterial Blood Base Excess -12mmol/L (-3-3) FiO2 21.0 Laboratory Tests Test 01/04/17 07:44 01/04/17 08:35 01/04/17 09:00 01/04/17 09:35 Bedside Urine HCG, Qualitative Hcg negative (Negative) Urine Collection Type Unknown Urine Color Yellow Urine Clarity Clear Urine pH 5.0 Urine Specific [place] >=1.030 Urine Protein Negativemg/dL (NEG-TRACE) Urine Glucose (UA) >=1000mg/dL (NEG) Urine Ketones (Stick) >=80mg/dL (NEG) Urine Blood Trace (NEG) Urine Nitrite Negative (NEG) Urine Bilirubin Negative (NEG) Urine Urobilinogen Dipstick 0.2mg/dL (0.2 mg/dL) Urine Leukocyte Esterase Negative (NEG) Urine RBC 1-2/HPF (0-2) Urine WBC 0/HPF (0-4) Urine Squamous Epithelial Cells Mod/LPF Urine Bacteria 0/HPF (0-FEW) White Blood Count 9.2x10^3/uL (4.0-11.0) Red Blood Count 4.90x10^6/uL (3.50-5.40) Hemoglobin 14.4g/dL (12.0-15.5) Hematocrit 44.8% (36.0-47.0) Mean Corpuscular Volume 91fL (79-100) Mean Corpuscular Hemoglobin 29pg (25-35) Mean Corpuscular Hemoglobin Concent 32g/dL (31-37) Red Cell Distribution Width 13.1% (11.5-14.5) Platelet Count 470x10^3/uL (140-400) Neutrophils (%) (Auto) 79% (31-73) Lymphocytes (%) (Auto) 17% (24-48) Monocytes (%) (Auto) 3% (0-9) Eosinophils (%) (Auto) 0% (0-3) Basophils (%) (Auto) 1% (0-3) Neutrophils # (Auto) 7.3x10^3uL (1.8-7.7) Lymphocytes # (Auto) 1.5x10^3/uL (1.0-4.8) Monocytes # (Auto) 0.3x10^3/uL (0.0-1.1) Eosinophils # (Auto) 0.0x10^3/uL (0.0-0.7) Basophils # (Auto) 0.1x10^3/uL (0.0-0.2) Sodium Level 136mmol/L (136-145) Potassium Level 4.2mmol/L (3.5-5.1) Chloride Level 96mmol/L (98-107) Carbon Dioxide Level 16mmol/L (21-32) Anion Gap 24 (6-14) Blood Urea Nitrogen 17mg/dL (7-20) Creatinine 0.9mg/dL (0.6-1.0) Estimated GFR (Cockcroft-Gault) 94.7 BUN/Creatinine Ratio 19 (6-20) Glucose Level 485mg/dL (70-99) Serum Osmolality 311mOsm/Kg (279-304) Calcium Level 9.7mg/dL (8.5-10.1) Total Bilirubin 1.0mg/dL (0.2-1.0) Aspartate Amino Transf (AST/SGOT) 39U/L (15-37) Alanine Aminotransferase (ALT/SGPT) 38U/L (14-59) Alkaline Phosphatase 158U/L (46-116) Total Protein 8.0g/dL (6.4-8.2) Albumin 3.5g/dL (3.4-5.0) Albumin/Globulin Ratio 0.8 (1.0-1.7) Lipase 52U/L (73-393) O2 Saturation 97% (92-99) Arterial Blood pH 7.28 (7.35-7.45) Arterial Blood pCO2 at Patient Temp 30mmHg (35-46) Arterial Blood pO2 at Patient Temp 114mmHg (85-108) Arterial Blood HCO3 14mmol/L (21-28) Arterial Blood Base Excess -12mmol/L (-3-3) FiO2 21.0 VTE Prophylaxis Ordered VTE Prophylaxis Devices: Yes VTE Pharmacological Prophylaxi: Yes Assessment/Plan Assessment/Plan 1 . DKA 2. uncontrollled dm type1 3. left face abscess post i and d on 01/04 4. drug use marijuana 5. GERD plan: 1. ID CONSULT 2. cont icu with insulin drip protocol, if able to eat, can start home insulin regimen 3. ivf 4. labs tmr 5. add zosyn and vanco for now ID consult dvt, gi ppx SW involve every time, nothing can be done, pt said medicaid is pending within 2 weeks. RALF TREVINO MD Jan 04, 2017 12:10
[2017-01-04 12:30] VITALS: BP 109/61
[2017-01-04] MEDS ORDERED: VANCOMYCIN 1.25 GM in IV NORMAL SALINE 250ML 250 ML IV ONE (12:30)
[2017-01-04] MEDS: IV NORMAL SALINE 1000ML BAG 1,000 ML IV SCH ×2 (12:43→22:04)
[2017-01-04] MEDS: PANTOPRAZOLE IV PUSH 40 MG VIAL. IVP SCH (12:53)
[2017-01-04 13:00] VITALS: BP 109/63
[2017-01-04 13:32] LABS: CALCIUM 8.5 mg/dL (8.5-10.1); CREATININE 0.7 mg/dL (0.6-1.0); GFR 126.6
[2017-01-04 14:00] VITALS: BP 110/60
[2017-01-04] MEDS ORDERED: CLINDAMYCIN 600MG PREMIX 50 ML IV SCH (14:00)
[2017-01-04] MEDS: VANCOMYCIN PER PHARMACY MC PRN (14:11)
[2017-01-04] MEDS ORDERED: DEXTROSE 50% 25 GM / 50ML DISP.SYRIN. IV PRN ×2 (14:30→21:00)
[2017-01-04] MEDS: MORPHINE SULFATE 2 MG/ML DISP.SYRIN. IV PRN ×2 (14:40→18:00)
[2017-01-04 15:00] VITALS: BP 100/56
[2017-01-04] MEDS: ENOXAPARIN 40 MG/0.4 ML SYRINGE. SQ SCH (15:56)
[2017-01-04] MEDS: INSULIN DETEMIR 300 UNITS/3 ML INSULN.PEN. SQ SCH (15:57)
[2017-01-04] MEDS: INSULIN ASPART 300 UNITS/3 ML INSULN.PEN SQ SCH ×2 (17:00→17:21)
[2017-01-04] MEDS: PIPERACILLIN/TAZOBACTAM 4.5 GM in IV NORMAL SALINE 100ML 100 ML IV SCH ×2 (17:17→23:15)
[2017-01-04] MEDS: BISACODYL 5 MG TABLET.DR. PO PRN (17:24)
[2017-01-04 19:00] VITALS: BP 115/62
[2017-01-04] MEDS: HYDROCODONE/APAP 5/325MG TABLET. PO PRN (20:42)
[2017-01-04] MEDS ORDERED: INSULIN DETEMIR 300 UNITS/3 ML INSULN.PEN. SQ SCH (21:00)
[2017-01-04] MEDS ORDERED: NAPROXEN 500 MG TABLET PO SCH (21:00)
[2017-01-04] MEDS: MORPHINE SULFATE 4 MG/ML DISP.SYRIN. IV PRN (22:17)
[2017-01-04 22:52] VITALS: BP 141/58
[2017-01-05] MEDS: VANCOMYCIN 750 MG in IV NORMAL SALINE 250ML 250 ML IV SCH ×2 (01:19→13:00)
[2017-01-05] MEDS: IV NORMAL SALINE 1000ML BAG 1,000 ML IV SCH ×3 (01:20→14:59)
[2017-01-05 03:00] VITALS: BP 120/85
[2017-01-05] MEDS: MORPHINE SULFATE 4 MG/ML DISP.SYRIN. IV PRN (04:35)
[2017-01-05 04:57] LABS: BASO # 0.1 x10^3/uL (0.0-0.2); BASO % 1 % (0-3); EOS % 2 % (0-3); HEMATOCRIT 33.8 % (36.0-47.0); HEMOGLOBIN 10.9 g/dL (12.0-15.5); LYMPH # 2.2 x10^3/uL (1.0-4.8); LYMPH % 29 % (24-48); MEAN CORPUSCULAR HEMOGLOBIN 29 pg (25-35); MEAN CORPUSCULAR HGB CONC 32 g/dL (31-37); MEAN CORPUSCULAR VOLUME 91 fL (79-100); MONO % 9 % (0-9); NEUT % 59 % (31-73); PLATELET COUNT 339 x10^3/uL (140-400); RED CELL DISTRIBUTION WIDTH 12.9 % (11.5-14.5); WHITE BLOOD COUNT 7.7 x10^3/uL (4.0-11.0)
[2017-01-05 05:29] LABS: CALCIUM 8.2 mg/dL (8.5-10.1); CREATININE 0.8 mg/dL (0.6-1.0); GFR 108.5; POTASSIUM 4.2 mmol/L (3.5-5.1)
[2017-01-05] MEDS: PIPERACILLIN/TAZOBACTAM 4.5 GM in IV NORMAL SALINE 100ML 100 ML IV SCH ×3 (05:49→18:31)
[2017-01-05 07:00] VITALS: BP 138/109
[2017-01-05] MEDS ORDERED: INSULIN ASPART 300 UNITS/3 ML INSULN.PEN SQ SCH ×2 (07:30→08:00)
[2017-01-05] MEDS: INSULIN ASPART 300 UNITS/3 ML INSULN.PEN SQ SCH ×6 (09:00→18:37)
[2017-01-05] MEDS: PANTOPRAZOLE IV PUSH 40 MG VIAL. IVP SCH (09:30)
[2017-01-05] MEDS: BISACODYL 5 MG TABLET.DR. PO PRN (09:37)
[2017-01-05] MEDS: TRAMADOL 50 MG TABLET. PO PRN (09:51)
[2017-01-05 11:00] VITALS: BP 139/93
--- NOTE | 2017-01-05 11:05 | PDOC ---
Infectious Disease Note Vital Sign Vital Signs Vital Signs Date Time Temp Pulse Resp B/P Pulse Ox O2 Delivery O2 Flow Rate FiO2 01/05/17 09:51 18 98 Room Air 01/05/17 07:00 97.5 98 138/109 97.5 Labs Lab Laboratory Tests Test 01/04/17 13:05 01/04/17 14:50 01/04/17 14:59 01/04/17 16:03 Sodium Level 139mmol/L (136-145) Potassium Level 4.0mmol/L (3.5-5.1) Chloride Level 104mmol/L (98-107) Carbon Dioxide Level 21mmol/L (21-32) Anion Gap 14 (6-14) Blood Urea Nitrogen 13mg/dL (7-20) Creatinine 0.7mg/dL (0.6-1.0) Estimated GFR (Cockcroft-Gault) 126.6 Glucose Level 164mg/dL (70-99) Calcium Level 8.5mg/dL (8.5-10.1) Nasal Screen MRSA (PCR) Negative (Negative) Glucose (Fingerstick) 124mg/dL (70-99) 145mg/dL (70-99) Test 01/04/17 17:05 01/04/17 21:41 01/05/17 04:27 Glucose (Fingerstick) 99mg/dL (70-99) 235mg/dL (70-99) White Blood Count 7.7x10^3/uL (4.0-11.0) Red Blood Count 3.70x10^6/uL (3.50-5.40) Hemoglobin 10.9g/dL (12.0-15.5) Hematocrit 33.8% (36.0-47.0) Mean Corpuscular Volume 91fL (79-100) Mean Corpuscular Hemoglobin 29pg (25-35) Mean Corpuscular Hemoglobin Concent 32g/dL (31-37) Red Cell Distribution Width 12.9% (11.5-14.5) Platelet Count 339x10^3/uL (140-400) Neutrophils (%) (Auto) 59% (31-73) Lymphocytes (%) (Auto) 29% (24-48) Monocytes (%) (Auto) 9% (0-9) Eosinophils (%) (Auto) 2% (0-3) Basophils (%) (Auto) 1% (0-3) Neutrophils # (Auto) 4.5x10^3uL (1.8-7.7) Lymphocytes # (Auto) 2.2x10^3/uL (1.0-4.8) Monocytes # (Auto) 0.7x10^3/uL (0.0-1.1) Eosinophils # (Auto) 0.1x10^3/uL (0.0-0.7) Basophils # (Auto) 0.1x10^3/uL (0.0-0.2) Sodium Level 144mmol/L (136-145) Potassium Level 4.2mmol/L (3.5-5.1) Chloride Level 110mmol/L (98-107) Carbon Dioxide Level 23mmol/L (21-32) Anion Gap 11 (6-14) Blood Urea Nitrogen 17mg/dL (7-20) Creatinine 0.8mg/dL (0.6-1.0) Estimated GFR (Cockcroft-Gault) 108.5 Glucose Level 209mg/dL (70-99) Calcium Level 8.2mg/dL (8.5-10.1) Objective Assessment Cellulitis with abscess left cheek -s/p I and D in ER, 01/04. no culture. d/w micro DKA DM type I h/o staph aureus & group B strep Plan Plan of Care vanc, Zosyn, clindamycin Monitor response/labs Thank you [id number] Patient seen and examined. Chart reviewed in detail. 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 Monitor. FRANCO LUCIANO APRN Jan 05, 2017 11:05 BRETT OZUNA MD Jan 05, 2017 16:01
--- NOTE | 2017-01-05 12:35 | PDOC ---
PROGRESS NOTES Chief Complaint Chief Complaint 1 . DKA 2. uncontrollled dm type1 3. left face abscess post i and d on 01/04 4. drug use marijuana 5. GERD plan: 1. ID CONSULT 2. off insulin drip. levemir 25u qhs, aspart 10u tid. ssi 3. ivf 4. labs tmr 5. add zosyn and vanco for now ID consult dvt, gi ppx SW involve every time, nothing can be done, pt said medicaid is pending within 2 weeks. hope dc soon History of Present Illness History of Present Illness still left face pain hyperglycemia Vitals Vitals Vital Signs Date Time Temp Pulse Resp B/P Pulse Ox O2 Delivery O2 Flow Rate FiO2 01/05/17 11:00 96.7 101 17 139/93 98 Room Air 96.7 Physical Exam Physical Exam left face clean wound, with mild erythema and swelling, severe tenderness General: Alert, Oriented X3, Cooperative Heart: Regular rate, Normal S1 Lungs: Clear Abdomen: Normal bowel sounds, Soft Extremities: No clubbing, No cyanosis Labs LABS Laboratory Tests Test 01/04/17 13:05 01/04/17 14:50 01/04/17 14:59 01/04/17 16:03 Sodium Level 139mmol/L (136-145) Potassium Level 4.0mmol/L (3.5-5.1) Chloride Level 104mmol/L (98-107) Carbon Dioxide Level 21mmol/L (21-32) Anion Gap 14 (6-14) Blood Urea Nitrogen 13mg/dL (7-20) Creatinine 0.7mg/dL (0.6-1.0) Estimated GFR (Cockcroft-Gault) 126.6 Glucose Level 164mg/dL (70-99) Calcium Level 8.5mg/dL (8.5-10.1) Nasal Screen MRSA (PCR) Negative (Negative) Glucose (Fingerstick) 124mg/dL (70-99) 145mg/dL (70-99) Test 01/04/17 17:05 01/04/17 21:41 01/05/17 04:27 01/05/17 10:27 Glucose (Fingerstick) 99mg/dL (70-99) 235mg/dL (70-99) 264mg/dL (70-99) White Blood Count 7.7x10^3/uL (4.0-11.0) Red Blood Count 3.70x10^6/uL (3.50-5.40) Hemoglobin 10.9g/dL (12.0-15.5) Hematocrit 33.8% (36.0-47.0) Mean Corpuscular Volume 91fL (79-100) Mean Corpuscular Hemoglobin 29pg (25-35) Mean Corpuscular Hemoglobin Concent 32g/dL (31-37) Red Cell Distribution Width 12.9% (11.5-14.5) Platelet Count 339x10^3/uL (140-400) Neutrophils (%) (Auto) 59% (31-73) Lymphocytes (%) (Auto) 29% (24-48) Monocytes (%) (Auto) 9% (0-9) Eosinophils (%) (Auto) 2% (0-3) Basophils (%) (Auto) 1% (0-3) Neutrophils # (Auto) 4.5x10^3uL (1.8-7.7) Lymphocytes # (Auto) 2.2x10^3/uL (1.0-4.8) Monocytes # (Auto) 0.7x10^3/uL (0.0-1.1) Eosinophils # (Auto) 0.1x10^3/uL (0.0-0.7) Basophils # (Auto) 0.1x10^3/uL (0.0-0.2) Sodium Level 144mmol/L (136-145) Potassium Level 4.2mmol/L (3.5-5.1) Chloride Level 110mmol/L (98-107) Carbon Dioxide Level 23mmol/L (21-32) Anion Gap 11 (6-14) Blood Urea Nitrogen 17mg/dL (7-20) Creatinine 0.8mg/dL (0.6-1.0) Estimated GFR (Cockcroft-Gault) 108.5 Glucose Level 209mg/dL (70-99) Calcium Level 8.2mg/dL (8.5-10.1) Review of Systems Review of Systems no fever, chills, sob or chest pain Assessment and Plan Assessmemt and Plan Problems Medical Problems: (1) DKA (diabetic ketoacidoses) Status: Acute (2) Facial abscess Status: Acute Problems: Comment Review of Relevant I have reviewed the following items cristela (where applicable) has been applied. Labs Laboratory Tests Test 01/04/17 07:44 01/04/17 08:35 01/04/17 09:00 01/04/17 09:35 Bedside Urine HCG, Qualitative Hcg negative (Negative) Urine Collection Type Unknown Urine Color Yellow Urine Clarity Clear Urine pH 5.0 Urine Specific [place] >=1.030 Urine Protein Negativemg/dL (NEG-TRACE) Urine Glucose (UA) >=1000mg/dL (NEG) Urine Ketones (Stick) >=80mg/dL (NEG) Urine Blood Trace (NEG) Urine Nitrite Negative (NEG) Urine Bilirubin Negative (NEG) Urine Urobilinogen Dipstick 0.2mg/dL (0.2 mg/dL) Urine Leukocyte Esterase Negative (NEG) Urine RBC 1-2/HPF (0-2) Urine WBC 0/HPF (0-4) Urine Squamous Epithelial Cells Mod/LPF Urine Bacteria 0/HPF (0-FEW) White Blood Count 9.2x10^3/uL (4.0-11.0) Red Blood Count 4.90x10^6/uL (3.50-5.40) Hemoglobin 14.4g/dL (12.0-15.5) Hematocrit 44.8% (36.0-47.0) Mean Corpuscular Volume 91fL (79-100) Mean Corpuscular Hemoglobin 29pg (25-35) Mean Corpuscular Hemoglobin Concent 32g/dL (31-37) Red Cell Distribution Width 13.1% (11.5-14.5) Platelet Count 470x10^3/uL (140-400) Neutrophils (%) (Auto) 79% (31-73) Lymphocytes (%) (Auto) 17% (24-48) Monocytes (%) (Auto) 3% (0-9) Eosinophils (%) (Auto) 0% (0-3) Basophils (%) (Auto) 1% (0-3) Neutrophils # (Auto) 7.3x10^3uL (1.8-7.7) Lymphocytes # (Auto) 1.5x10^3/uL (1.0-4.8) Monocytes # (Auto) 0.3x10^3/uL (0.0-1.1) Eosinophils # (Auto) 0.0x10^3/uL (0.0-0.7) Basophils # (Auto) 0.1x10^3/uL (0.0-0.2) Sodium Level 136mmol/L (136-145) Potassium Level 4.2mmol/L (3.5-5.1) Chloride Level 96mmol/L (98-107) Carbon Dioxide Level 16mmol/L (21-32) Anion Gap 24 (6-14) Blood Urea Nitrogen 17mg/dL (7-20) Creatinine 0.9mg/dL (0.6-1.0) Estimated GFR (Cockcroft-Gault) 94.7 BUN/Creatinine Ratio 19 (6-20) Glucose Level 485mg/dL (70-99) Serum Osmolality 311mOsm/Kg (279-304) Calcium Level 9.7mg/dL (8.5-10.1) Total Bilirubin 1.0mg/dL (0.2-1.0) Aspartate Amino Transf (AST/SGOT) 39U/L (15-37) Alanine Aminotransferase (ALT/SGPT) 38U/L (14-59) Alkaline Phosphatase 158U/L (46-116) Total Protein 8.0g/dL (6.4-8.2) Albumin 3.5g/dL (3.4-5.0) Albumin/Globulin Ratio 0.8 (1.0-1.7) Lipase 52U/L (73-393) O2 Saturation 97% (92-99) Arterial Blood pH 7.28 (7.35-7.45) Arterial Blood pCO2 at Patient Temp 30mmHg (35-46) Arterial Blood pO2 at Patient Temp 114mmHg (85-108) Arterial Blood HCO3 14mmol/L (21-28) Arterial Blood Base Excess -12mmol/L (-3-3) FiO2 21.0 Test 01/04/17 13:05 01/04/17 14:50 01/04/17 14:59 01/04/17 16:03 Sodium Level 139mmol/L (136-145) Potassium Level 4.0mmol/L (3.5-5.1) Chloride Level 104mmol/L (98-107) Carbon Dioxide Level 21mmol/L (21-32) Anion Gap 14 (6-14) Blood Urea Nitrogen 13mg/dL (7-20) Creatinine 0.7mg/dL (0.6-1.0) Estimated GFR (Cockcroft-Gault) 126.6 Glucose Level 164mg/dL (70-99) Calcium Level 8.5mg/dL (8.5-10.1) Nasal Screen MRSA (PCR) Negative (Negative) Glucose (Fingerstick) 124mg/dL (70-99) 145mg/dL (70-99) Test 01/04/17 17:05 01/04/17 21:41 01/05/17 04:27 01/05/17 10:27 Glucose (Fingerstick) 99mg/dL (70-99) 235mg/dL (70-99) 264mg/dL (70-99) White Blood Count 7.7x10^3/uL (4.0-11.0) Red Blood Count 3.70x10^6/uL (3.50-5.40) Hemoglobin 10.9g/dL (12.0-15.5) Hematocrit 33.8% (36.0-47.0) Mean Corpuscular Volume 91fL (79-100) Mean Corpuscular Hemoglobin 29pg (25-35) Mean Corpuscular Hemoglobin Concent 32g/dL (31-37) Red Cell Distribution Width 12.9% (11.5-14.5) Platelet Count 339x10^3/uL (140-400) Neutrophils (%) (Auto) 59% (31-73) Lymphocytes (%) (Auto) 29% (24-48) Monocytes (%) (Auto) 9% (0-9) Eosinophils (%) (Auto) 2% (0-3) Basophils (%) (Auto) 1% (0-3) Neutrophils # (Auto) 4.5x10^3uL (1.8-7.7) Lymphocytes # (Auto) 2.2x10^3/uL (1.0-4.8) Monocytes # (Auto) 0.7x10^3/uL (0.0-1.1) Eosinophils # (Auto) 0.1x10^3/uL (0.0-0.7) Basophils # (Auto) 0.1x10^3/uL (0.0-0.2) Sodium Level 144mmol/L (136-145) Potassium Level 4.2mmol/L (3.5-5.1) Chloride Level 110mmol/L (98-107) Carbon Dioxide Level 23mmol/L (21-32) Anion Gap 11 (6-14) Blood Urea Nitrogen 17mg/dL (7-20) Creatinine 0.8mg/dL (0.6-1.0) Estimated GFR (Cockcroft-Gault) 108.5 Glucose Level 209mg/dL (70-99) Calcium Level 8.2mg/dL (8.5-10.1) Laboratory Tests Test 01/04/17 13:05 01/04/17 14:50 01/04/17 14:59 01/04/17 16:03 Sodium Level 139mmol/L (136-145) Potassium Level 4.0mmol/L (3.5-5.1) Chloride Level 104mmol/L (98-107) Carbon Dioxide Level 21mmol/L (21-32) Anion Gap 14 (6-14) Blood Urea Nitrogen 13mg/dL (7-20) Creatinine 0.7mg/dL (0.6-1.0) Estimated GFR (Cockcroft-Gault) 126.6 Glucose Level 164mg/dL (70-99) Calcium Level 8.5mg/dL (8.5-10.1) Nasal Screen MRSA (PCR) Negative (Negative) Glucose (Fingerstick) 124mg/dL (70-99) 145mg/dL (70-99) Test 01/04/17 17:05 01/04/17 21:41 01/05/17 04:27 01/05/17 10:27 Glucose (Fingerstick) 99mg/dL (70-99) 235mg/dL (70-99) 264mg/dL (70-99) White Blood Count 7.7x10^3/uL (4.0-11.0) Red Blood Count 3.70x10^6/uL (3.50-5.40) Hemoglobin 10.9g/dL (12.0-15.5) Hematocrit 33.8% (36.0-47.0) Mean Corpuscular Volume 91fL (79-100) Mean Corpuscular Hemoglobin 29pg (25-35) Mean Corpuscular Hemoglobin Concent 32g/dL (31-37) Red Cell Distribution Width 12.9% (11.5-14.5) Platelet Count 339x10^3/uL (140-400) Neutrophils (%) (Auto) 59% (31-73) Lymphocytes (%) (Auto) 29% (24-48) Monocytes (%) (Auto) 9% (0-9) Eosinophils (%) (Auto) 2% (0-3) Basophils (%) (Auto) 1% (0-3) Neutrophils # (Auto) 4.5x10^3uL (1.8-7.7) Lymphocytes # (Auto) 2.2x10^3/uL (1.0-4.8) Monocytes # (Auto) 0.7x10^3/uL (0.0-1.1) Eosinophils # (Auto) 0.1x10^3/uL (0.0-0.7) Basophils # (Auto) 0.1x10^3/uL (0.0-0.2) Sodium Level 144mmol/L (136-145) Potassium Level 4.2mmol/L (3.5-5.1) Chloride Level 110mmol/L (98-107) Carbon Dioxide Level 23mmol/L (21-32) Anion Gap 11 (6-14) Blood Urea Nitrogen 17mg/dL (7-20) Creatinine 0.8mg/dL (0.6-1.0) Estimated GFR (Cockcroft-Gault) 108.5 Glucose Level 209mg/dL (70-99) Calcium Level 8.2mg/dL (8.5-10.1) Medications Current Medications Sodium Chloride 3 ml 3 ml QSHIFT PRN IV AFTER MEDS AND BLOOD DRAWS; Start 01/04 at 09:00 Sodium Chloride (Iv Sodium Chloride 0.9% 1000ml Bag) 1,000 ml @ 1,000 mls/hr Q1H IV Last administered on 01/04/17 09:15; Start 01/04/17 at 08:49; Stop at 09:48; Status DC Ondansetron HCl (Zofran) 4 mg 1X ONCE IV Last administered on 01/04/17 09:13 ; Start 01/04/17 at 09:00; Stop 01/04/17 at 09:01; Status DC Fentanyl Citrate (Fentanyl 2ml Vial) 50 mcg 1X ONCE IV Last administered on 09:14; Start 01/04/17 at 09:00; Stop 01/04/17 at 09:01; Status DC Lidocaine/Sodium Bicarbonate 20 ml 20 ml 1X ONCE IJ Last administered on 09:15; Start 01/04/17 at 09:00; Stop 01/04/17 at 09:01; Status DC Insulin Human Regular/Sodium Chloride (Novolin R Vial/ Iv Normal Saline 150ml) 151.5 ml @ 0 mls/hr CONT PRN IV SEE I/O RECORD Last administered on 01/04/17 12:43; Start 01/04/17 at 10:30 Ondansetron HCl (Zofran) 4 mg 1X ONCE IV Last administered on 01/04/17 10:30 ; Start 01/04/17 at 10:30; Stop 01/04/17 at 10:32; Status DC Ondansetron HCl (Zofran) 4 mg PRN Q8HRS PRN IV NAUSEA/VOMITING Last administered on 01/04/17 11:04; Start 01/04/17 at 10:45; Stop 01/05/17 at 10:44 ; Status DC Fentanyl Citrate 50 mcg 50 mcg 1X ONCE IV Last administered on 01/04/17 11:28 ; Start 01/04/17 at 11:00; Stop 01/04/17 at 11:01; Status DC Clindamycin Phosphate (Cleocin 600 Mg Premix) 50 ml @ 100 mls/hr 1X ONCE IV Last administered on 01/04/17 12:44; Start 01/04/17 at 11:00; Stop 01/04/17 at 11:29; Status DC Acetaminophen (Tylenol) 650 mg PRN Q6HRS PRN PO MILD PAIN / TEMP; Start at 12:00 Ondansetron HCl (Zofran) 4 mg PRN Q6HRS PRN IV NAUSEA/VOMITING; Start 01/04/17 at 12:00 Morphine Sulfate 2 mg PRN Q2HR PRN IV PAIN Last administered on 01/04/17 18:00 ; Start 01/04/17 at 12:00 Morphine Sulfate 4 mg 4 mg PRN Q2HR PRN IV PAIN Last administered on 01/05/17 04:35; Start 01/04/17 at 12:00 Sodium Chloride 1,000 ml @ 75 mls/hr [id number] IV Last administered on 01:20; Start 01/04/17 at 12:00 Clindamycin Phosphate (Cleocin 600 Mg Premix) 50 ml @ 100 mls/hr Q8HRS IV ; Start 01/04/17 at 14:00; Stop 01/04/17 at 14:00; Status DC Enoxaparin Sodium 40 mg 40 mg DAILY16 SQ Last administered on 01/04/17 15:56; Start 01/04/17 at 16:00 Piperacillin Sod/ Tazobactam Sod/ Sodium Chloride (Zosyn/Iv Sodium Chloride 0.9 % 100ml) 100 ml @ 200 mls/hr Q6HRS IV Last administered on 01/05/17 05:49; Start 01/04/17 at 18:00 Piperacillin Sod/ Tazobactam Sod (Zosyn Per Pharmacy) 1 each PRN DAILY PRN MC SEE COMMENTS; Start 01/04/17 at 12:00 Vancomycin HCl 1 each 1 each PRN DAILY PRN MC SEE COMMENTS Last administered on 01/04/17 14:11; Start 01/04/17 at 12:00 Vancomycin HCl/ Sodium Chloride (Iv Sodium Chloride 0.9% 250ml) 250 ml @ 167 mls/hr Q12H IV ; Start 01/04/17 at 12:00; Status UNV Pantoprazole Sodium 40 mg 40 mg DAILYAC IVP Last administered on 01/05/17 09: 30; Start 01/04/17 at 12:30 Vancomycin HCl 1.25 gm/Sodium Chloride 250 ml @ 166.667 mls/hr 1X ONCE IV Last administered on 01/04/17 12:48; Start 01/04/17 at 12:30; Stop 01/04/17 at 13:59; Status DC Vancomycin HCl/ Sodium Chloride (Iv Sodium Chloride 0.9% 250ml) 250 ml @ 250 mls/hr Q12H IV Last administered on 01/05/17 01:19; Start 01/05/17 at 01:00 Vancomycin HCl 1 each 1X ONCE MC ; Start 01/06/17 at 00:01; Stop 01/06/17 at 00 :02 Insulin Detemir (Levemir) 25 units QHS SQ Last administered on 01/04/17 15:57 ; Start 01/04/17 at 21:00 Insulin Aspart (Novolog) 10 units TIDAC SQ Last administered on 01/05/17 09:00 ; Start 01/04/17 at 16:30 Insulin Aspart (Novolog) 0-9 UNITS TIDWMEALS SQ Last administered on 01/05/17 09:01; Start 01/04/17 at 17:00 Dextrose 12.5 gm PRN Q15MIN PRN IV SEE COMMENTS; Start 01/04/17 at 14:30 Bisacodyl (Dulcolax Tab) 5 mg PRN DAILY PRN PO CONSTIPATION Last administered on 01/05/17 09:37; Start 01/04/17 at 17:15 Naproxen (Naprosyn) 500 mg BID PO Last administered on 01/04/17 20:42; Start 01/04/17 at 21:00; Stop 01/05/17 at 09:25; Status DC Acetaminophen/ Hydrocodone Bitart (Lortab 5/325) 1 tab PRN Q6HRS PRN PO PAIN Last administered on 01/04/17 20:42; Start 01/04/17 at 20:30 Insulin Detemir (Levemir) 25 units QHS SQ ; Start 01/04/17 at 21:00; Status UNV Insulin Aspart (Novolog) 0-9 UNITS TIDWMEALS SQ ; Start 01/05/17 at 08:00; Status UNV Dextrose 12.5 gm PRN Q15MIN PRN IV SEE COMMENTS; Start 01/04/17 at 21:00; Status UNV Insulin Aspart (Novolog) 10 units TIDAC SQ ; Start 01/05/17 at 07:30; Status UNV Tramadol HCl (Ultram) 50 mg PRN Q6HRS PRN PO PAIN Last administered on 09:51; Start 01/05/17 at 09:30 Active Scripts Active [place] 5-325 Tablet (Acetaminophen/Hydrocodone Bitart) 1 Each Tablet 1-2 Tab PO Q4-6HRS Clindamycin Hcl 150 Mg Capsule 3 Cap PO TID Levemir Flextouch (Insulin Detemir) 100 Unit/1 Ml Insuln.pen 25 Unit SQ HS 30 Days Novolog (Insulin Aspart) 100 Unit/1 Ml Cartridge 10 Units SQ TIDAC 30 Days Vitals/I & O Vital Sign - Last 24 Hours 01/04/17 01/04/17 01/04/17 01/04/17 13:00 14:00 14:40 15:00 Temp 98.4 98.4 Pulse 112 120 114 Resp 16 18 16 18 B/P 109/63 110/60 100/56 Pulse Ox 100 100 100 99 O2 Delivery Room Air Room Air Room Air Room Air 01/04/17 01/04/17 01/04/17 01/04/17 15:10 18:00 18:30 19:00 Temp 98.2 98.2 Pulse 112 Resp 20 16 18 B/P 115/62 Pulse Ox 99 99 98 O2 Delivery Room Air Room Air 01/04/17 01/04/17 01/04/17 01/04/17 20:00 20:42 21:48 22:17 Resp 18 18 18 Pulse Ox 98 98 O2 Delivery Room Air Room Air Room Air Room Air 01/04/17 01/05/17 01/05/17 01/05/17 22:52 03:00 04:35 05:10 Temp 98.1 96.4 98.1 96.4 Pulse 103 95 Resp 18 18 18 18 B/P 141/58 120/85 Pulse Ox 98 98 98 98 O2 Delivery Room Air Room Air Room Air Room Air 01/05/17 01/05/17 01/05/17 07:00 09:51 11:00 Temp 97.5 96.7 97.5 96.7 Pulse 98 101 Resp 17 B/P 138/109 139/93 Pulse Ox 99 98 98 O2 Delivery Room Air Room Air Room Air Intake and Output 01/04/17 01/04/17 01/05/17 15:00 23:00 07:00 Intake Total 2740 ml 870 ml 1250 ml Balance 2740 ml 870 ml 1250 ml Nutrition Consultation Dietary Evaluation: Recommendations by RD: Increase Calorie Intake, Protein supplementation Comments: Recent wt loss of 8# (7% body wt) over the past month Declines any diet education Rec. 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
[2017-01-05] MEDS: HYDROCODONE/APAP 5/325MG TABLET. PO PRN ×2 (14:12→20:21)
[2017-01-05 15:00] VITALS: BP 126/80
[2017-01-05] MEDS: DIPHENHYDRAMINE HCL 25 MG CAPSULE PO PRN ×2 (15:09→20:20)
[2017-01-05] MEDS: ENOXAPARIN 40 MG/0.4 ML SYRINGE. SQ SCH (15:10)
[2017-01-05 19:00] VITALS: BP 128/96
[2017-01-05] MEDS: INSULIN DETEMIR 300 UNITS/3 ML INSULN.PEN. SQ SCH (20:23)
[2017-01-05 23:00] VITALS: BP 145/115
[2017-01-06] MEDS: TRAMADOL 50 MG TABLET. PO PRN ×2 (00:08→23:14)
[2017-01-06] MEDS: PIPERACILLIN/TAZOBACTAM 4.5 GM in IV NORMAL SALINE 100ML 100 ML IV SCH ×5 (00:08→23:14)
[2017-01-06] MEDS: VANCOMYCIN PER PHARMACY MC PRN (01:20)
[2017-01-06] MEDS: VANCOMYCIN 1 GM in IV NORMAL SALINE 250ML 250 ML IV SCH ×2 (01:29→14:01)
[2017-01-06 03:16] VITALS: BP 149/115
[2017-01-06 05:25] LABS: BASO # 0.1 x10^3/uL (0.0-0.2); BASO % 1 % (0-3); EOS % 2 % (0-3); HEMATOCRIT 33.2 % (36.0-47.0); HEMOGLOBIN 10.9 g/dL (12.0-15.5); LYMPH # 2.5 x10^3/uL (1.0-4.8); LYMPH % 59 % (24-48); MEAN CORPUSCULAR HEMOGLOBIN 30 pg (25-35); MEAN CORPUSCULAR HGB CONC 33 g/dL (31-37); MEAN CORPUSCULAR VOLUME 92 fL (79-100); MONO % 6 % (0-9); NEUT % 31 % (31-73); PLATELET COUNT 309 x10^3/uL (140-400); RED BLOOD COUNT 3.62 x10^6/uL (3.50-5.40); WHITE BLOOD COUNT 4.2 x10^3/uL (4.0-11.0)
[2017-01-06 05:41] LABS: CALCIUM 8.3 mg/dL (8.5-10.1); CREATININE 0.8 mg/dL (0.6-1.0); GFR 108.5
[2017-01-06] MEDS: PANTOPRAZOLE 40 MG TABLET. PO SCH (06:11)
[2017-01-06 06:22] LABS: % EOS 4 % (0-5); PLT ESTIMATE ADEQUATE (ADEQUATE)
[2017-01-06 07:00] VITALS: BP 150/109
[2017-01-06] MEDS: INSULIN ASPART 300 UNITS/3 ML INSULN.PEN SQ SCH ×6 (08:00→18:09)
--- NOTE | 2017-01-06 09:28 | PDOC ---
Infectious Disease Note Subjective Subjective Feeling ok, less pain + diarrhea ROS ROS GEN: Denies fevers, chills, sweats HEENT: Denies sore throat CV: Denies chest pain RESP: Denies shortness of air, cough GI: Denies n/v Vital Sign Vital Signs Vital Signs Date Time Temp Pulse Resp B/P Pulse Ox O2 Delivery O2 Flow Rate FiO2 01/06/17 07:00 96.8 82 18 150/109 98 Room Air 96.8 Physical Exam PHYSICAL EXAM GENERAL: Alert, eting breakfast HEENT: PERRL, OC/OP clear NECK: Supple, no JVD, no LN LUNGS: Clear HEART: S1S2, no gallop, no murmur ABD: Soft, NT EXT: No edema, no cyanosis STATIC BALANCER: Alert, oriented x 3, no focal neurologic deficit SKIN: No rash. Less swelling, induration and redness of left cheek area. Labs Lab Laboratory Tests Test 01/05/17 10:27 01/05/17 16:48 01/05/17 20:31 01/06/17 00:30 Glucose (Fingerstick) 264mg/dL (70-99) 111mg/dL (70-99) 212mg/dL (70-99) Vancomycin Level Trough 5.2mcg/mL (10.0-20.0) Vancomycin Last Dose Date Vancomycin Last Dose Time Test 01/06/17 04:44 01/06/17 07:43 White Blood Count 4.2x10^3/uL (4.0-11.0) Red Blood Count 3.62x10^6/uL (3.50-5.40) Hemoglobin 10.9g/dL (12.0-15.5) Hematocrit 33.2% (36.0-47.0) Mean Corpuscular Volume 92fL (79-100) Mean Corpuscular Hemoglobin 30pg (25-35) Mean Corpuscular Hemoglobin Concent 33g/dL (31-37) Red Cell Distribution Width 13.0% (11.5-14.5) Platelet Count 309x10^3/uL (140-400) Neutrophils (%) (Auto) 31% (31-73) Lymphocytes (%) (Auto) 59% (24-48) Monocytes (%) (Auto) 6% (0-9) Eosinophils (%) (Auto) 2% (0-3) Basophils (%) (Auto) 1% (0-3) Neutrophils # (Auto) 1.3x10^3uL (1.8-7.7) Lymphocytes # (Auto) 2.5x10^3/uL (1.0-4.8) Monocytes # (Auto) 0.3x10^3/uL (0.0-1.1) Eosinophils # (Auto) 0.1x10^3/uL (0.0-0.7) Basophils # (Auto) 0.1x10^3/uL (0.0-0.2) Segmented Neutrophils % 32% (35-66) Lymphocytes % 55% (24-48) Monocytes % 9% (0-10) Eosinophils % 4% (0-5) Platelet Estimate Adequate (ADEQUATE) Sodium Level 142mmol/L (136-145) Potassium Level 4.0mmol/L (3.5-5.1) Chloride Level 107mmol/L (98-107) Carbon Dioxide Level 24mmol/L (21-32) Anion Gap 11 (6-14) Blood Urea Nitrogen 18mg/dL (7-20) Creatinine 0.8mg/dL (0.6-1.0) Estimated GFR (Cockcroft-Gault) 108.5 Glucose Level 237mg/dL (70-99) Calcium Level 8.3mg/dL (8.5-10.1) Glucose (Fingerstick) 139mg/dL (70-99) Objective Assessment Cellulitis with abscess left cheek. improving -s/p I and D in ER, 01/04. no culture. d/w micro DKA DM type I h/o staph aureus & group B strep Plan Plan of Care vanc and Zosyn. wean soon C. diff PCR pending Patient seen and examined. Chart reviewed. Case discussed with SPINDLE SETTER. CT result viewed. Agree with above plan. FRANCO LUCIANO APRN Jan 06, 2017 09:28 BRETT OZUNA MD Jan 06, 2017 16:03
[2017-01-06] MEDS ORDERED: hydrALAZINE 20 MG/ML VIAL. IVP PRN (09:30)
[2017-01-06 10:45] VITALS: BP 164/123
--- NOTE | 2017-01-06 11:51 | PDOC ---
PROGRESS NOTES Chief Complaint Chief Complaint 1 . DKA 2. uncontrollled dm type1 3. left face abscess post i and d on 01/04 4. drug use marijuana 5. GERD 6. diarrhea plan: 1. ID CONSULTed 2. off insulin drip. levemir 25u qhs, aspart 10u tid. ssi 3. dc ivf 4. labs tmr 5. add zosyn and vanco for now dvt, gi ppx SW involve every time, nothing can be done, pt said medicaid is pending within 2 weeks. hope dc soon check cdiff add lisinopril for HTN start from today History of Present Illness History of Present Illness still left face pain, better hyperglycemia diarrhea HTN today Vitals Vitals Vital Signs Date Time Temp Pulse Resp B/P Pulse Ox O2 Delivery O2 Flow Rate FiO2 01/06/17 10:45 97.7 92 18 164/123 98 Room Air 97.7 Physical Exam Physical Exam left face clean wound, with mild erythema and swelling, severe tenderness General: Alert, Oriented X3, Cooperative Heart: Regular rate, Normal S1 Lungs: Clear Abdomen: Normal bowel sounds, Soft Extremities: No clubbing, No cyanosis Labs LABS Laboratory Tests Test 01/05/17 16:48 01/05/17 20:31 01/06/17 00:30 01/06/17 04:44 Glucose (Fingerstick) 111mg/dL (70-99) 212mg/dL (70-99) Vancomycin Level Trough 5.2mcg/mL (10.0-20.0) Vancomycin Last Dose Date Vancomycin Last Dose Time White Blood Count 4.2x10^3/uL (4.0-11.0) Red Blood Count 3.62x10^6/uL (3.50-5.40) Hemoglobin 10.9g/dL (12.0-15.5) Hematocrit 33.2% (36.0-47.0) Mean Corpuscular Volume 92fL (79-100) Mean Corpuscular Hemoglobin 30pg (25-35) Mean Corpuscular Hemoglobin Concent 33g/dL (31-37) Red Cell Distribution Width 13.0% (11.5-14.5) Platelet Count 309x10^3/uL (140-400) Neutrophils (%) (Auto) 31% (31-73) Lymphocytes (%) (Auto) 59% (24-48) Monocytes (%) (Auto) 6% (0-9) Eosinophils (%) (Auto) 2% (0-3) Basophils (%) (Auto) 1% (0-3) Neutrophils # (Auto) 1.3x10^3uL (1.8-7.7) Lymphocytes # (Auto) 2.5x10^3/uL (1.0-4.8) Monocytes # (Auto) 0.3x10^3/uL (0.0-1.1) Eosinophils # (Auto) 0.1x10^3/uL (0.0-0.7) Basophils # (Auto) 0.1x10^3/uL (0.0-0.2) Segmented Neutrophils % 32% (35-66) Lymphocytes % 55% (24-48) Monocytes % 9% (0-10) Eosinophils % 4% (0-5) Platelet Estimate Adequate (ADEQUATE) Sodium Level 142mmol/L (136-145) Potassium Level 4.0mmol/L (3.5-5.1) Chloride Level 107mmol/L (98-107) Carbon Dioxide Level 24mmol/L (21-32) Anion Gap 11 (6-14) Blood Urea Nitrogen 18mg/dL (7-20) Creatinine 0.8mg/dL (0.6-1.0) Estimated GFR (Cockcroft-Gault) 108.5 Glucose Level 237mg/dL (70-99) Calcium Level 8.3mg/dL (8.5-10.1) Test 01/06/17 07:43 01/06/17 11:17 Glucose (Fingerstick) 139mg/dL (70-99) 122mg/dL (70-99) Review of Systems Review of Systems no fever, chills, sob or chest pain Assessment and Plan Assessmemt and Plan Problems Medical Problems: (1) DKA (diabetic ketoacidoses) Status: Acute (2) Facial abscess Status: Acute Problems: Comment Review of Relevant I have reviewed the following items cristela (where applicable) has been applied. Labs Laboratory Tests Test 01/04/17 13:05 01/04/17 14:50 01/04/17 14:59 01/04/17 16:03 Sodium Level 139mmol/L (136-145) Potassium Level 4.0mmol/L (3.5-5.1) Chloride Level 104mmol/L (98-107) Carbon Dioxide Level 21mmol/L (21-32) Anion Gap 14 (6-14) Blood Urea Nitrogen 13mg/dL (7-20) Creatinine 0.7mg/dL (0.6-1.0) Estimated GFR (Cockcroft-Gault) 126.6 Glucose Level 164mg/dL (70-99) Calcium Level 8.5mg/dL (8.5-10.1) Nasal Screen MRSA (PCR) Negative (Negative) Glucose (Fingerstick) 124mg/dL (70-99) 145mg/dL (70-99) Test 01/04/17 17:05 01/04/17 21:41 01/05/17 04:27 01/05/17 08:31 Glucose (Fingerstick) 99mg/dL (70-99) 235mg/dL (70-99) 232mg/dL (70-99) White Blood Count 7.7x10^3/uL (4.0-11.0) Red Blood Count 3.70x10^6/uL (3.50-5.40) Hemoglobin 10.9g/dL (12.0-15.5) Hematocrit 33.8% (36.0-47.0) Mean Corpuscular Volume 91fL (79-100) Mean Corpuscular Hemoglobin 29pg (25-35) Mean Corpuscular Hemoglobin Concent 32g/dL (31-37) Red Cell Distribution Width 12.9% (11.5-14.5) Platelet Count 339x10^3/uL (140-400) Neutrophils (%) (Auto) 59% (31-73) Lymphocytes (%) (Auto) 29% (24-48) Monocytes (%) (Auto) 9% (0-9) Eosinophils (%) (Auto) 2% (0-3) Basophils (%) (Auto) 1% (0-3) Neutrophils # (Auto) 4.5x10^3uL (1.8-7.7) Lymphocytes # (Auto) 2.2x10^3/uL (1.0-4.8) Monocytes # (Auto) 0.7x10^3/uL (0.0-1.1) Eosinophils # (Auto) 0.1x10^3/uL (0.0-0.7) Basophils # (Auto) 0.1x10^3/uL (0.0-0.2) Sodium Level 144mmol/L (136-145) Potassium Level 4.2mmol/L (3.5-5.1) Chloride Level 110mmol/L (98-107) Carbon Dioxide Level 23mmol/L (21-32) Anion Gap 11 (6-14) Blood Urea Nitrogen 17mg/dL (7-20) Creatinine 0.8mg/dL (0.6-1.0) Estimated GFR (Cockcroft-Gault) 108.5 Glucose Level 209mg/dL (70-99) Calcium Level 8.2mg/dL (8.5-10.1) Test 01/05/17 10:27 01/05/17 16:48 01/05/17 20:31 01/06/17 00:30 Glucose (Fingerstick) 264mg/dL (70-99) 111mg/dL (70-99) 212mg/dL (70-99) Vancomycin Level Trough 5.2mcg/mL (10.0-20.0) Vancomycin Last Dose Date Vancomycin Last Dose Time Test 01/06/17 04:44 01/06/17 07:43 01/06/17 11:17 White Blood Count 4.2x10^3/uL (4.0-11.0) Red Blood Count 3.62x10^6/uL (3.50-5.40) Hemoglobin 10.9g/dL (12.0-15.5) Hematocrit 33.2% (36.0-47.0) Mean Corpuscular Volume 92fL (79-100) Mean Corpuscular Hemoglobin 30pg (25-35) Mean Corpuscular Hemoglobin Concent 33g/dL (31-37) Red Cell Distribution Width 13.0% (11.5-14.5) Platelet Count 309x10^3/uL (140-400) Neutrophils (%) (Auto) 31% (31-73) Lymphocytes (%) (Auto) 59% (24-48) Monocytes (%) (Auto) 6% (0-9) Eosinophils (%) (Auto) 2% (0-3) Basophils (%) (Auto) 1% (0-3) Neutrophils # (Auto) 1.3x10^3uL (1.8-7.7) Lymphocytes # (Auto) 2.5x10^3/uL (1.0-4.8) Monocytes # (Auto) 0.3x10^3/uL (0.0-1.1) Eosinophils # (Auto) 0.1x10^3/uL (0.0-0.7) Basophils # (Auto) 0.1x10^3/uL (0.0-0.2) Segmented Neutrophils % 32% (35-66) Lymphocytes % 55% (24-48) Monocytes % 9% (0-10) Eosinophils % 4% (0-5) Platelet Estimate Adequate (ADEQUATE) Sodium Level 142mmol/L (136-145) Potassium Level 4.0mmol/L (3.5-5.1) Chloride Level 107mmol/L (98-107) Carbon Dioxide Level 24mmol/L (21-32) Anion Gap 11 (6-14) Blood Urea Nitrogen 18mg/dL (7-20) Creatinine 0.8mg/dL (0.6-1.0) Estimated GFR (Cockcroft-Gault) 108.5 Glucose Level 237mg/dL (70-99) Calcium Level 8.3mg/dL (8.5-10.1) Glucose (Fingerstick) 139mg/dL (70-99) 122mg/dL (70-99) Laboratory Tests Test 01/05/17 16:48 01/05/17 20:31 01/06/17 00:30 01/06/17 04:44 Glucose (Fingerstick) 111mg/dL (70-99) 212mg/dL (70-99) Vancomycin Level Trough 5.2mcg/mL (10.0-20.0) Vancomycin Last Dose Date Vancomycin Last Dose Time White Blood Count 4.2x10^3/uL (4.0-11.0) Red Blood Count 3.62x10^6/uL (3.50-5.40) Hemoglobin 10.9g/dL (12.0-15.5) Hematocrit 33.2% (36.0-47.0) Mean Corpuscular Volume 92fL (79-100) Mean Corpuscular Hemoglobin 30pg (25-35) Mean Corpuscular Hemoglobin Concent 33g/dL (31-37) Red Cell Distribution Width 13.0% (11.5-14.5) Platelet Count 309x10^3/uL (140-400) Neutrophils (%) (Auto) 31% (31-73) Lymphocytes (%) (Auto) 59% (24-48) Monocytes (%) (Auto) 6% (0-9) Eosinophils (%) (Auto) 2% (0-3) Basophils (%) (Auto) 1% (0-3) Neutrophils # (Auto) 1.3x10^3uL (1.8-7.7) Lymphocytes # (Auto) 2.5x10^3/uL (1.0-4.8) Monocytes # (Auto) 0.3x10^3/uL (0.0-1.1) Eosinophils # (Auto) 0.1x10^3/uL (0.0-0.7) Basophils # (Auto) 0.1x10^3/uL (0.0-0.2) Segmented Neutrophils % 32% (35-66) Lymphocytes % 55% (24-48) Monocytes % 9% (0-10) Eosinophils % 4% (0-5) Platelet Estimate Adequate (ADEQUATE) Sodium Level 142mmol/L (136-145) Potassium Level 4.0mmol/L (3.5-5.1) Chloride Level 107mmol/L (98-107) Carbon Dioxide Level 24mmol/L (21-32) Anion Gap 11 (6-14) Blood Urea Nitrogen 18mg/dL (7-20) Creatinine 0.8mg/dL (0.6-1.0) Estimated GFR (Cockcroft-Gault) 108.5 Glucose Level 237mg/dL (70-99) Calcium Level 8.3mg/dL (8.5-10.1) Test 01/06/17 07:43 01/06/17 11:17 Glucose (Fingerstick) 139mg/dL (70-99) 122mg/dL (70-99) Medications Current Medications Sodium Chloride 3 ml 3 ml QSHIFT PRN IV AFTER MEDS AND BLOOD DRAWS; Start 01/04 at 09:00 Sodium Chloride (Iv Sodium Chloride 0.9% 1000ml Bag) 1,000 ml @ 1,000 mls/hr Q1H IV Last administered on 01/04/17 09:15; Start 01/04/17 at 08:49; Stop at 09:48; Status DC Ondansetron HCl (Zofran) 4 mg 1X ONCE IV Last administered on 01/04/17 09:13 ; Start 01/04/17 at 09:00; Stop 01/04/17 at 09:01; Status DC Fentanyl Citrate (Fentanyl 2ml Vial) 50 mcg 1X ONCE IV Last administered on 09:14; Start 01/04/17 at 09:00; Stop 01/04/17 at 09:01; Status DC Lidocaine/Sodium Bicarbonate 20 ml 20 ml 1X ONCE IJ Last administered on 09:15; Start 01/04/17 at 09:00; Stop 01/04/17 at 09:01; Status DC Insulin Human Regular/Sodium Chloride (Novolin R Vial/ Iv Normal Saline 150ml) 151.5 ml @ 0 mls/hr CONT PRN IV SEE I/O RECORD Last administered on 01/04/17 12:43; Start 01/04/17 at 10:30 Ondansetron HCl (Zofran) 4 mg 1X ONCE IV Last administered on 01/04/17 10:30 ; Start 01/04/17 at 10:30; Stop 01/04/17 at 10:32; Status DC Ondansetron HCl (Zofran) 4 mg PRN Q8HRS PRN IV NAUSEA/VOMITING Last administered on 01/04/17 11:04; Start 01/04/17 at 10:45; Stop 01/05/17 at 10:44 ; Status DC Fentanyl Citrate 50 mcg 50 mcg 1X ONCE IV Last administered on 01/04/17 11:28 ; Start 01/04/17 at 11:00; Stop 01/04/17 at 11:01; Status DC Clindamycin Phosphate (Cleocin 600 Mg Premix) 50 ml @ 100 mls/hr 1X ONCE IV Last administered on 01/04/17 12:44; Start 01/04/17 at 11:00; Stop 01/04/17 at 11:29; Status DC Acetaminophen (Tylenol) 650 mg PRN Q6HRS PRN PO MILD PAIN / TEMP; Start at 12:00 Ondansetron HCl (Zofran) 4 mg PRN Q6HRS PRN IV NAUSEA/VOMITING; Start 01/04/17 at 12:00 Morphine Sulfate 2 mg PRN Q2HR PRN IV PAIN Last administered on 01/04/17 18:00 ; Start 01/04/17 at 12:00 Morphine Sulfate 4 mg 4 mg PRN Q2HR PRN IV PAIN Last administered on 01/05/17 04:35; Start 01/04/17 at 12:00 Sodium Chloride 1,000 ml @ 75 mls/hr [id number] IV Last administered on 12:26; Start 01/04/17 at 12:00; Stop 01/06/17 at 09:28; Status DC Clindamycin Phosphate (Cleocin 600 Mg Premix) 50 ml @ 100 mls/hr Q8HRS IV ; Start 01/04/17 at 14:00; Stop 01/04/17 at 14:00; Status DC Enoxaparin Sodium 40 mg 40 mg DAILY16 SQ Last administered on 01/04/17 15:56; Start 01/04/17 at 16:00 Piperacillin Sod/ Tazobactam Sod/ Sodium Chloride (Zosyn/Iv Sodium Chloride 0.9 % 100ml) 100 ml @ 200 mls/hr Q6HRS IV Last administered on 01/06/17 06:11; Start 01/04/17 at 18:00 Piperacillin Sod/ Tazobactam Sod (Zosyn Per Pharmacy) 1 each PRN DAILY PRN MC SEE COMMENTS; Start 01/04/17 at 12:00 Vancomycin HCl 1 each 1 each PRN DAILY PRN MC SEE COMMENTS Last administered on 01/06/17 01:20; Start 01/04/17 at 12:00 Vancomycin HCl/ Sodium Chloride (Iv Sodium Chloride 0.9% 250ml) 250 ml @ 167 mls/hr Q12H IV ; Start 01/04/17 at 12:00; Status UNV Pantoprazole Sodium 40 mg 40 mg DAILYAC IVP Last administered on 01/05/17 09: 30; Start 01/04/17 at 12:30; Stop 01/05/17 at 12:34; Status DC Vancomycin HCl 1.25 gm/Sodium Chloride 250 ml @ 166.667 mls/hr 1X ONCE IV Last administered on 01/04/17 12:48; Start 01/04/17 at 12:30; Stop 01/04/17 at 13:59; Status DC Vancomycin HCl/ Sodium Chloride (Iv Sodium Chloride 0.9% 250ml) 250 ml @ 250 mls/hr Q12H IV Last administered on 01/05/17 13:00; Start 01/05/17 at 01:00; Stop 01/06/17 at 01:12; Status DC Vancomycin HCl 1 each 1X ONCE MC Last administered on 01/06/17 00:01; Start 01/06/17 at 00:01; Stop 01/06/17 at 00:02; Status DC Insulin Detemir (Levemir) 25 units QHS SQ Last administered on 01/05/17 20:23 ; Start 01/04/17 at 21:00 Insulin Aspart (Novolog) 10 units TIDAC SQ Last administered on 01/06/17 08:38 ; Start 01/04/17 at 16:30 Insulin Aspart (Novolog) 0-9 UNITS TIDWMEALS SQ Last administered on 01/05/17 12:00; Start 01/04/17 at 17:00 Dextrose 12.5 gm PRN Q15MIN PRN IV SEE COMMENTS; Start 01/04/17 at 14:30 Bisacodyl (Dulcolax Tab) 5 mg PRN DAILY PRN PO CONSTIPATION Last administered on 01/05/17 09:37; Start 01/04/17 at 17:15 Naproxen (Naprosyn) 500 mg BID PO Last administered on 01/04/17 20:42; Start 01/04/17 at 21:00; Stop 01/05/17 at 09:25; Status DC Acetaminophen/ Hydrocodone Bitart (Lortab 5/325) 1 tab PRN Q6HRS PRN PO PAIN Last administered on 01/05/17 20:21; Start 01/04/17 at 20:30 Insulin Detemir (Levemir) 25 units QHS SQ ; Start 01/04/17 at 21:00; Status UNV Insulin Aspart (Novolog) 0-9 UNITS TIDWMEALS SQ ; Start 01/05/17 at 08:00; Status UNV Dextrose 12.5 gm PRN Q15MIN PRN IV SEE COMMENTS; Start 01/04/17 at 21:00; Status UNV Insulin Aspart (Novolog) 10 units TIDAC SQ ; Start 01/05/17 at 07:30; Status UNV Tramadol HCl (Ultram) 50 mg PRN Q6HRS PRN PO PAIN Last administered on 00:08; Start 01/05/17 at 09:30 Pantoprazole Sodium (Protonix) 40 mg DAILYAC PO Last administered on 01/06/17 06:11; Start 01/06/17 at 07:30 Diphenhydramine HCl 25 mg 25 mg PRN Q6HRS PRN PO ITCHING Last administered on 20:20; Start 01/05/17 at 14:15 Vancomycin HCl/ Sodium Chloride (Iv Sodium Chloride 0.9% 250ml) 250 ml @ 250 mls/hr Q12H IV Last administered on 01/06/17 01:29; Start 01/06/17 at 01:15 Vancomycin HCl 1 each 1X ONCE MC ; Start 01/07/17 at 12:30; Stop 01/07/17 at 12 :31 Hydralazine HCl (Apresoline) 10 mg PRN Q4HRS PRN IVP ELEVATED BP, SEE COMMENTS ; Start 01/06/17 at 09:30 Active Scripts Active [place] 5-325 Tablet (Acetaminophen/Hydrocodone Bitart) 1 Each Tablet 1-2 Tab PO Q4-6HRS Clindamycin Hcl 150 Mg Capsule 3 Cap PO TID Levemir Flextouch (Insulin Detemir) 100 Unit/1 Ml Insuln.pen 25 Unit SQ HS 30 Days Novolog (Insulin Aspart) 100 Unit/1 Ml Cartridge 10 Units SQ TIDAC 30 Days Vitals/I & O Vital Sign - Last 24 Hours 01/05/17 01/05/17 01/05/17 01/05/17 14:12 15:00 15:12 19:00 Temp 96.9 97.5 96.9 97.5 Pulse 126 94 Resp 18 17 20 16 B/P 126/80 128/96 Pulse Ox 99 99 99 O2 Delivery Room Air Room Air Room Air 01/05/17 01/05/17 01/05/17 01/05/17 20:00 20:21 21:21 23:00 Temp 98.2 98.2 Pulse 90 Resp 20 B/P 145/115 Pulse Ox 98 O2 Delivery Room Air Room Air Room Air Room Air 01/06/17 01/06/17 01/06/17 01/06/17 00:08 01:08 03:16 07:00 Temp 98.1 96.8 98.1 96.8 Pulse 87 82 Resp 20 18 B/P 149/115 150/109 Pulse Ox 99 98 O2 Delivery Room Air Room Air Room Air Room Air 01/06/17 10:45 Temp 97.7 97.7 Pulse 92 Resp 18 B/P 164/123 Pulse Ox 98 O2 Delivery Room Air Intake and Output 01/05/17 01/05/17 01/06/17 15:00 23:00 07:00 Intake Total 440 ml 1900 ml 1720 ml Balance 440 ml 1900 ml 1720 ml Nutrition Consultation Dietary Evaluation: Recommendations by RD: Increase Calorie Intake, Protein supplementation Comments: Recent wt loss of 8# (7% body wt) over the past month Declines any diet education Rec. offer the boost glucose control protein supplement if intake is less than 50% of meals Expected Outcomes/Goals: meet 75% estimated nutrition needs no further wt loss Interpretation of weight loss: >5% in 1 month Malnutrition Findings: Food and Nutrition Intake (Mod: <75% est energy req 7days Reduced Senior Project Engineer Strength: N/A Reduced Senior Project Engineer Strength (Non-Sev: N/A Malnutrition related to morbid: No Weight Status: Appropriate Fluid Accumulation (N/A): N/A RALF TREVINO MD Jan 06, 2017 11:51
[2017-01-06] MEDS: LISINOPRIL 20 MG TABLET PO SCH (13:01)
[2017-01-06 15:00] VITALS: BP 143/108
[2017-01-06] MEDS: HYDROCODONE/APAP 5/325MG TABLET. PO PRN (17:52)
[2017-01-06] MEDS: ENOXAPARIN 40 MG/0.4 ML SYRINGE. SQ SCH (17:53)
[2017-01-06] MEDS: DIPHENHYDRAMINE HCL 25 MG CAPSULE PO PRN (17:53)
[2017-01-06 19:00] VITALS: BP 163/121
[2017-01-06] MEDS: INSULIN DETEMIR 300 UNITS/3 ML INSULN.PEN. SQ SCH (20:04)
[2017-01-06 23:00] VITALS: BP 139/97
[2017-01-07] MEDS: VANCOMYCIN 1 GM in IV NORMAL SALINE 250ML 250 ML IV SCH (01:01)
--- NOTE | 2017-01-07 02:32 | CONS ---
DATE OF CONSULTATION: 01/04/2017 Davey Soler APRN, dictating on behalf of Dr. Misty Dent. REFERRING PHYSICIAN: Dr. Daniel Kuo. REASON FOR CONSULTATION: Facial abscess. HISTORY OF PRESENT ILLNESS: This patient is a 21-year-old -O[place]i female with a history of diabetes mellitus type 1, who presented with nausea, vomiting, and epigastric discomfort for a 2-day duration. She was found to have diabetic ketoacidosis with glucose of 485 and a bicarbonate of 16. She was started on an insulin drip. Previously, on 12/31/2016, she presented to the Emergency Room with left facial swelling and redness. She was found to have cellulitis with some induration. No fluctuance was noted. She had developed a small pimple that grew in size after she popped a small amount of pus. She was released home on clindamycin and instructions to apply warm compress to the area. However, despite the antibiotic, she reports increase in redness, swelling, and pain. She underwent a bedside I and D in the ER. No culture was obtained. She is currently on vancomycin, piperacillin/tazobactam, and clindamycin. PAST MEDICAL HISTORY: MSSA abscess of vulva, group B Strep, urinary tract infection, diabetes mellitus type 1 since age 2, gastroesophageal reflux disease, and multiple miscarriages. FAMILY HISTORY: Positive for diabetes mellitus. SOCIAL HISTORY: The patient is single. Nonsmoker. History of marijuana. ALLERGIES: No known drug allergies. CURRENT MEDICATIONS: Vancomycin, piperacillin/tazobactam, and clindamycin. Other medications are available and have been reviewed on the MAR. REVIEW OF SYSTEMS: The patient denies headache, nasal/sinus congestion, or sore throat. Denies chest pain or palpitations. Denies cough, shortness of air, or wheezing. Denies any further nausea and vomiting. Denies dysuria. Denies fevers, chills, or sweats. PHYSICAL EXAMINATION: GENERAL: A young -Omani female sitting on the side of bed in no apparent distress. VITAL SIGNS: Afebrile. Stable. Weight 106.06 pounds. HEENT: Pupils are equally round and reactive. She wears eyeglasses. Normal conjunctivae. On the left side of her nose/cheek, there is redness, induration, and warmth extending below the lower eyelid, tender. A small slit without drainage noted. She is unable to fully open her mouth. Oral cavity is pink and moist. NECK: Supple, no adenopathy present. LUNGS: Clear to auscultation. HEART: Normal S1 and S2. ABDOMEN: Nondistended. Bowel sounds are present, soft, and nontender. EXTREMITIES: No gross edema or cyanosis. SKIN: Without rash. Warm to touch. Multiple tattoos. NEUROLOGIC: Alert and oriented x 3. Moves all extremities. LABORATORY DATA: Today's WBC is 7.7, hemoglobin 10.9, and platelet count 339,000. Electrolytes are unremarkable. Creatinine 0.7, BUN 13. Glucose 164, total bilirubin 1.0, AST 39, ALT 38, and lipase 52. Albumin 3.5. Urinalysis is unremarkable for infection, MRSA screen negative. IMPRESSION: 1. Cellulitis with abscess, left cheek, status post incision and drainage on 01/04/2017. 2. Diabetic ketoacidosis. 3. Diabetes type I. 4. History of Staphylococcus aureus. PLAN: Continue antibiotics. Monitor response, and labs. Supportive care. Thank you, Dr. Kuo for asking us to participate in this patient's care. Should you have further questions or concerns, please call. MISTY DENT MD DR: JEWELL/gerald JOB#: [id number] / [id number]
[2017-01-07 03:03] VITALS: BP 136/95
[2017-01-07] MEDS: PIPERACILLIN/TAZOBACTAM 4.5 GM in IV NORMAL SALINE 100ML 100 ML IV SCH (04:53)
[2017-01-07] MEDS: PANTOPRAZOLE 40 MG TABLET. PO SCH (04:56)
[2017-01-07 05:52] LABS: BASO # 0.1 x10^3/uL (0.0-0.2); BASO % 1 % (0-3); EOS % 2 % (0-3); HEMATOCRIT 32.4 % (36.0-47.0); HEMOGLOBIN 10.9 g/dL (12.0-15.5); LYMPH # 2.7 x10^3/uL (1.0-4.8); LYMPH % 45 % (24-48); MEAN CORPUSCULAR HEMOGLOBIN 30 pg (25-35); MEAN CORPUSCULAR HGB CONC 34 g/dL (31-37); MEAN CORPUSCULAR VOLUME 89 fL (79-100); MONO % 7 % (0-9); NEUT % 45 % (31-73); PLATELET COUNT 328 x10^3/uL (140-400); RED BLOOD COUNT 3.63 x10^6/uL (3.50-5.40); RED CELL DISTRIBUTION WIDTH 13.2 % (11.5-14.5); WHITE BLOOD COUNT 5.9 x10^3/uL (4.0-11.0)
[2017-01-07 05:55] LABS: CALCIUM 8.7 mg/dL (8.5-10.1); CREATININE 0.5 mg/dL (0.6-1.0); GFR 186.7; POTASSIUM 4.1 mmol/L (3.5-5.1)
[2017-01-07 07:00] VITALS: BP 135/101
[2017-01-07] MEDS: LISINOPRIL 20 MG TABLET PO SCH (08:23)
[2017-01-07] MEDS: INSULIN ASPART 300 UNITS/3 ML INSULN.PEN SQ SCH ×4 (08:28→11:30)
[2017-01-07] MEDS ORDERED: DOXYCYCLINE HYCLATE 100 MG TABLET PO SCH (09:00)
--- NOTE | 2017-01-07 09:33 | PDOC ---
Infectious Disease Note Subjective Subjective Feeling better, ready to go home ROS ROS GEN: Denies fevers, chills, sweats HEENT: Denies blurred vision, sore throat CV: Denies chest pain RESP: Denies shortness of air, cough GI: Denies n/v/d NEURO: Denies confusion, dizziness MSK: Denies weakness, joint pain/swelling Vital Sign Vital Signs Vital Signs Date Time Temp Pulse Resp B/P Pulse Ox O2 Delivery O2 Flow Rate FiO2 01/07/17 08:23 84 135/101 01/07/17 07:00 98.0 16 97 Room Air 98.0 Physical Exam PHYSICAL EXAM GENERAL: NAD, Alert HEENT: PERRL, OC/OP NECK: Supple, no JVD, no LN LUNGS: Clear HEART: S1S2, no gallop, no murmur ABD: Soft, NT, no organomegaly, no rebound EXT: No edema, no cyanosis DIGITAL RETOUCHER: Alert, oriented x 3, no focal neurologic deficit SKIN: No rash IV: ok Labs Lab Laboratory Tests Test 01/06/17 11:17 01/06/17 17:38 01/06/17 20:17 01/07/17 04:50 Glucose (Fingerstick) 122mg/dL (70-99) 176mg/dL (70-99) 310mg/dL (70-99) White Blood Count 5.9x10^3/uL (4.0-11.0) Red Blood Count 3.63x10^6/uL (3.50-5.40) Hemoglobin 10.9g/dL (12.0-15.5) Hematocrit 32.4% (36.0-47.0) Mean Corpuscular Volume 89fL (79-100) Mean Corpuscular Hemoglobin 30pg (25-35) Mean Corpuscular Hemoglobin Concent 34g/dL (31-37) Red Cell Distribution Width 13.2% (11.5-14.5) Platelet Count 328x10^3/uL (140-400) Neutrophils (%) (Auto) 45% (31-73) Lymphocytes (%) (Auto) 45% (24-48) Monocytes (%) (Auto) 7% (0-9) Eosinophils (%) (Auto) 2% (0-3) Basophils (%) (Auto) 1% (0-3) Neutrophils # (Auto) 2.7x10^3uL (1.8-7.7) Lymphocytes # (Auto) 2.7x10^3/uL (1.0-4.8) Monocytes # (Auto) 0.4x10^3/uL (0.0-1.1) Eosinophils # (Auto) 0.1x10^3/uL (0.0-0.7) Basophils # (Auto) 0.1x10^3/uL (0.0-0.2) Sodium Level 143mmol/L (136-145) Potassium Level 4.1mmol/L (3.5-5.1) Chloride Level 109mmol/L (98-107) Carbon Dioxide Level 27mmol/L (21-32) Anion Gap 7 (6-14) Blood Urea Nitrogen 17mg/dL (7-20) Creatinine 0.5mg/dL (0.6-1.0) Estimated GFR (Cockcroft-Gault) 186.7 Glucose Level 130mg/dL (70-99) Calcium Level 8.7mg/dL (8.5-10.1) Test 01/07/17 06:51 Glucose (Fingerstick) 158mg/dL (70-99) Objective Assessment Cellulitis with abscess left cheek. improving -s/p I and D in ER, 01/04. no culture. d/w micro DKA DM type I h/o staph aureus & group B strep Plan Plan of Care d/c on COLT Sanchez MD Jan 07, 2017 09:33
[2017-01-07 10:36] VITALS: BP 151/112
[2017-01-07] MEDS ORDERED: DOXY100T PO (12:24)
[2017-01-07] MEDS ORDERED: LISI-334 PO (12:24)
== END 2017-01-07 14:32 | disposition home or self-care (01) | DRG 602 ==
LOC: ER 08:27 → CVICU 10:20 → 5 NORTH 21:23
PROVIDERS: ADMIT Internal Medicine; ATTEND Internal Medicine
PROC: 0H91XZZ Drainage of Face Skin, External Approach (ICD-10-PCS; principal; 2017-01-04)
DX: L02.01 Cutaneous abscess of face (principal); E10.10 Type 1 diabetes mellitus with ketoacidosis without coma; L03.90 Cellulitis, unspecified; F12.90 Cannabis use, unspecified, uncomplicated; I10 Essential (primary) hypertension; J45.909 Unspecified asthma, uncomplicated; K21.9 Gastro-esophageal reflux disease without esophagitis; K59.00 Constipation, unspecified; Z83.3 Family history of diabetes mellitus; Z87.440 Personal history of urinary (tract) infections
CPT/HCPCS: 10060; 36415; 36600; 80048; 80053; 80202; 81001; 81025; 82805; 82947; 83690; 83930; 85007; 85027; 87324; 87641; 96361; 96374; 96375; 96376; C9113; J0360; J1650; J1815; J2270; J2405; J2543; J3010; J3370; J3490; J7030; J7050; Q0163; 99285-25

== ENCOUNTER 2017-04-17 18:52 | Inpatient (IN) | payer MEDICAID ==
[~2017-04-17] VITALS: Ht 160 cm; Wt 51.7 kg
[~2017-04-17 18:52] MED LIST changes: -CLIN-44 PO; +CLIN150C14 PO; +DOXY100T PO; +LISI-334 PO
[2017-04-17] MEDS ORDERED: IV NORMAL SALINE 1000ML BAG 1,000 ML IV SCH (19:22)
[2017-04-17] MEDS ORDERED: IV NORMAL SALINE 1000ML BAG 1,000 ML IV ONE ×3 (19:30→21:30)
[2017-04-17] MEDS ORDERED: ASPIRIN 325 MG TABLET PO ONE (19:30)
[2017-04-17] MEDS ORDERED: MORPHINE SULFATE 10 MG/ML VIAL. IV ONE (19:30)
[2017-04-17] MEDS ORDERED: ONDANSETRON PF 4 MG/2 ML VIAL. IV ONE (19:30)
--- NOTE | 2017-04-17 19:32 | PHYS DOC ---
Past Medical History Past Medical History: Diabetes-Type I, GERD Additional Past Medical Histor: MISCARRIAGES Past Surgical History: Other Additional Past Surgical Histo: I&D abscess groin Alcohol Use: None Drug Use: None Adult General Chief Complaint Chief Complaint: ABDOMINAL PAIN HPI HPI Patient is a 21 year old female with a history of diabetes type 1 and insulin- dependent who presents today complaining of generalized chest pain rated at 8-9 out of 10 mostly on the left upper chest but has no radiation nor exacerbation factors. Patient states this began this morning. She does not have an exact time. Patient states she also has generalized weakness. She states since this morning her blood sugars have been running in the 350s despite her using her regular insulin. Patient states she uses her insulin "religiously"and does not understand why her blood sugars are not coming down today. Patient denies any nausea vomiting. Denies any urgency frequency dysuria. PCP at [facility] Review of Systems Review of Systems Constitutional: weakness Eyes: Denies change in visual acuity, redness, or eye pain [] HENT: Denies nasal congestion or sore throat [] Respiratory: Denies cough or shortness of breath [] Cardiovascular: chest pain GI:see HPI : Denies dysuria or hematuria [] Musculoskeletal: Denies back pain or joint pain [] Integument: Denies rash or skin lesions [] Neurologic: Denies headache, focal weakness or sensory changes [] Endocrine: Denies polyuria or polydipsia [] Current Medications Current Medications Current Medications Medications (Trade) Dose Ordered Sig/Bakari Start Time Stop Time Status Last Admin Dose Admin Aspirin (Ralph Aspirin) 325 mg 1X ONCE 04/17/17 19:30 04/17/17 19:31 DC 04/17/17 19:45 325 MG Insulin Human Regular 150 ml @ As Directed STK-MED ONCE 04/17/17 20:32 04/17/17 20:33 DC Insulin Human Regular 150 unit/ Sodium Chloride 151.5 ml @ 0 mls/hr CONT PRN PRN 04/17/17 20:15 04/17/17 20:43 11.9 MLS/HR Morphine Sulfate 5 mg 1X ONCE 04/17/17 19:30 04/17/17 19:31 DC 04/17/17 19:46 5 MG Ondansetron HCl (Zofran) 8 mg 1X ONCE 04/17/17 19:30 04/17/17 19:31 DC 04/17/17 19:43 8 MG Potassium Chloride 100 ml @ 100 mls/hr PRN Q1HR PRN 04/17/17 20:15 Sodium Chloride 1,000 ml @ 1,000 mls/hr 1X ONCE 04/17/17 19:30 04/17/17 20:29 DC 04/17/17 19:35 1,000 MLS/HR Allergies Allergies Allergies Coded Allergies Type Severity Reaction Last Updated Verified No Known Medication Allergies Allergy Unknown 12/31/16 Yes Physical Exam Physical Exam Constitutional: Well developed, well nourished, no acute distress, non-toxic appearance. [] HENT: Normocephalic, atraumatic, bilateral external ears normal, oropharynx moist, no oral exudates, nose normal. [] Eyes: PERRLA, EOMI, conjunctiva normal, no discharge. [] Neck: Normal range of motion, no tenderness, supple, no stridor. [] Cardiovascular:tachycardic with HR in the 120's on exam Lungs & Thorax: Bilateral breath sounds clear to auscultation [] Abdomen: Bowel sounds normal, soft, no tenderness, no masses, no pulsatile masses. [] Skin: Warm, dry, no erythema, no rash. [] Back: No tenderness, no CVA tenderness. [] Extremities: No tenderness, no cyanosis, no clubbing, ROM intact, no edema. [] Neurologic: Alert and oriented X 3, normal motor function, normal sensory function, no focal deficits noted. [] Psychologic: Affect normal, judgement normal, mood normal. [] Current Patient Data Vital Signs Vital Signs Date Time Temp Pulse Resp B/P (MAP) Pulse Ox O2 Delivery O2 Flow Rate FiO2 04/17/17 20:25 126 19 83/47 (59) 99 Room Air 04/17/17 19:29 98.9 98.9 Lab Values Laboratory Tests Test 04/17/17 18:32 04/17/17 19:04 04/17/17 19:23 04/17/17 19:32 POC Urine HCG, Qualitative Hcg negative (Negative) Urine Collection Type Unknown Urine Color Yellow Urine Clarity Cloudy Urine pH 5.5 Urine Specific [place] >=1.030 Urine Protein Negative mg/dL (NEG-TRACE) Urine Glucose (UA) >=1000 mg/dL (NEG) Urine Ketones (Stick) >=80 mg/dL (NEG) Urine Blood Negative (NEG) Urine Nitrite Negative (NEG) Urine Bilirubin Negative (NEG) Urine Urobilinogen Dipstick 0.2 mg/dL (0.2 mg/dL) Urine Leukocyte Esterase Negative (NEG) Urine RBC 0 /HPF (0-2) Urine WBC 1-4 /HPF (0-4) Urine Squamous Epithelial Cells Many /LPF Urine Bacteria Moderate /HPF (0-FEW) Urine Opiates Screen Neg (NEG) Urine Methadone Screen Neg (NEG) Urine Barbiturates Neg (NEG) Urine Phencyclidine Screen Neg (NEG) Urine Amphetamine/Methamphetamine Neg (NEG) Urine Benzodiazepines Screen Neg (NEG) Urine Cocaine Screen Neg (NEG) Urine Cannabinoids Screen Neg (NEG) Urine Ethyl Alcohol Neg (NEG) Glucose (Fingerstick) 525 mg/dL (70-99) *H White Blood Count 8.7 x10^3/uL (4.0-11.0) Red Blood Count 4.87 x10^6/uL (3.50-5.40) Hemoglobin 14.5 g/dL (12.0-15.5) Hematocrit 45.2 % (36.0-47.0) Mean Corpuscular Volume 93 fL (79-100) Mean Corpuscular Hemoglobin 30 pg (25-35) Mean Corpuscular Hemoglobin Concent 32 g/dL (31-37) Red Cell Distribution Width 13.3 % (11.5-14.5) Platelet Count 456 x10^3/uL (140-400) H Neutrophils (%) (Auto) 65 % (31-73) Lymphocytes (%) (Auto) 28 % (24-48) Monocytes (%) (Auto) 6 % (0-9) Eosinophils (%) (Auto) 0 % (0-3) Basophils (%) (Auto) 1 % (0-3) Neutrophils # (Auto) 5.6 x10^3uL (1.8-7.7) Lymphocytes # (Auto) 2.4 x10^3/uL (1.0-4.8) Monocytes # (Auto) 0.5 x10^3/uL (0.0-1.1) Eosinophils # (Auto) 0.0 x10^3/uL (0.0-0.7) Basophils # (Auto) 0.1 x10^3/uL (0.0-0.2) Prothrombin Time 13.1 SEC (11.7-14.0) Prothrombin Time INR 1.1 (0.8-1.1) Sodium Level 138 mmol/L (136-145) Potassium Level 5.0 mmol/L (3.5-5.1) Chloride Level 96 mmol/L (98-107) L Carbon Dioxide Level 16 mmol/L (21-32) L Anion Gap 26 (6-14) H Blood Urea Nitrogen 17 mg/dL (7-20) Creatinine 0.9 mg/dL (0.6-1.0) Estimated GFR (Cockcroft-Gault) 94.7 BUN/Creatinine Ratio 19 (6-20) Glucose Level 654 mg/dL (70-99) *H Lactic Acid Level 2.2 mmol/L (0.4-2.0) H Calcium Level 10.0 mg/dL (8.5-10.1) Phosphorus Level 5.4 mg/dL (2.6-4.7) H Magnesium Level 2.0 mg/dL (1.8-2.4) Total Bilirubin 1.5 mg/dL (0.2-1.0) H Aspartate Amino Transferase (AST) 21 U/L (15-37) Alanine Aminotransferase (ALT) 25 U/L (14-59) Alkaline Phosphatase 104 U/L (46-116) Creatine Kinase 44 U/L (26-192) Creatine Kinase MB (Mass) < 0.5 ng/mL (0.0-3.6) Creatine Kinase MB Relative Index % (0-4) Troponin I Quantitative < 0.017 ng/mL (0.000-0.055) BA-Jff-H-Type Natriuretic Peptide 292 pg/mL (0-124) H Total Protein 7.7 g/dL (6.4-8.2) Albumin 4.0 g/dL (3.4-5.0) Albumin/Globulin Ratio 1.1 (1.0-1.7) Lipase 52 U/L (73-393) L Thyroid Stimulating Hormone (TSH) 0.378 uIU/mL (0.358-3.74) Serum Test, Qualitative Negative (NEG) Laboratory Tests 04/17/17 19:32 Laboratory Tests 04/17/17 19:32 EKG EKG []19:[address] Galicia sinus tachycardia, heart rate 122, QRS interval 78, no STEMI Radiology/Procedures Radiology/Procedures []Chest x-ray interpreted by Dr. Miller was negative for any acute findings. Course & Med Decision Making Course & Med Decision Making Pertinent Labs and Imaging studies reviewed. (See chart for details) This is a 21-year-old female patient with history of diabetes type 1 on insulin who presents today with symptoms suspicious of DKA. Patient's complaining of chest and generalized weakness. She states her blood sugars have not come down since this morning. They've been running around 350s despite using insulin. This is a common presentation of this patient whenever she is in DKA 19:[address] Galicia sinus tachycardia, heart rate 122, QRS interval 78, no STEMI Chest x-ray interpreted by Dr. Miller was negative for any acute findings. Glucose on arrival was 525. CBC with no acute findings, CMP with glucose in the 600's with a gap. Urine positive for ketones, specific gravity greater than 1.030, glucose over 1000. Patient was started on the DKA insulin drip protocol. She was admitted in stable condition under DR. Maynor Stephenson Disclaimer Seema Disclaimer This electronic medical record was generated, in whole or in part, using a voice recognition dictation system. Departure Departure Impression: Primary Impression: DKA (diabetic ketoacidoses) Additional Impressions: Atypical chest pain Tachycardia Disposition: ADMITTED INPATIENT Admitting Physician: Augusto Lovelace Condition: STABLE Referrals: NO PCP (PCP) Problem Qualifiers Primary Impression: DKA (diabetic ketoacidoses) Diabetes mellitus type: type 1 Diabetes mellitus complication detail: without coma Qualified Codes: E10.10 - Type 1 diabetes mellitus with ketoacidosis without coma BHARATH NAIDU WORK MANAGER Apr 17, 2017 19:32
[2017-04-17 19:34] LABS: BILIRUBIN,URINE NEGATIVE (NEG); GLUCOSE,URINE >=1000 mg/dL (NEG); NITRITE,URINE NEGATIVE (NEG); PH,URINE 5.5; PROTEIN,URINE NEGATIVE (NEG-TRACE); UROBILINOGEN,URINE 0.2 mg/dL (0.2 mg/dL)
[2017-04-17 19:42] LABS: BASO # 0.1 x10^3/uL (0.0-0.2); BASO % 1 % (0-3); EOS % 0 % (0-3); HEMATOCRIT 45.2 % (36.0-47.0); HEMOGLOBIN 14.5 g/dL (12.0-15.5); LYMPH # 2.4 x10^3/uL (1.0-4.8); LYMPH % 28 % (24-48); MEAN CORPUSCULAR HEMOGLOBIN 30 pg (25-35); MEAN CORPUSCULAR HGB CONC 32 g/dL (31-37); MEAN CORPUSCULAR VOLUME 93 fL (79-100); MONO % 6 % (0-9); NEUT % 65 % (31-73); PLATELET COUNT 456 x10^3/uL (140-400); RED BLOOD COUNT 4.87 x10^6/uL (3.50-5.40); RED CELL DISTRIBUTION WIDTH 13.3 % (11.5-14.5); WHITE BLOOD COUNT 8.7 x10^3/uL (4.0-11.0)
[2017-04-17 19:43] LABS: BACTERIA,URINE MODERATE /HPF (0-FEW); RBC,URINE 0 /HPF (0-2); SQUAMOUS EPITHELIAL CELL,UR MANY /LPF
[2017-04-17 19:51] LABS: INR 1.1 (0.8-1.1); PROTHROMBIN TIME PATIENT 13.1 SEC (11.7-14.0)
[2017-04-17 19:57] LABS: NEG OBC SER NEG; POS OBC SER POS
[2017-04-17 20:02] LABS: ALBUMIN/GLOBULIN RATIO 1.1 (1.0-1.7); CREATININE 0.9 mg/dL (0.6-1.0); GFR 94.7; TOTAL BILIRUBIN 1.5 mg/dL (0.2-1.0); TOTAL PROTEIN 7.7 g/dL (6.4-8.2)
[2017-04-17 20:10] LABS: CKMB MASS < 0.5 ng/mL (0.0-3.6); CREATINE KINASE 44 U/L (26-192)
[2017-04-17] MEDS ORDERED: POTASSIUM CHLORIDE 10MEQ 100 ML IV PRN ×3 (20:15)
[2017-04-17] MEDS ORDERED: INSULIN REGULAR VIAL 150 UNIT in 0.9 % SODIUM CHLORIDE 150ML 150 ML IV PRN (20:15)
[2017-04-17 20:23] LABS: BARBITURATES NEG (NEG); BENZODIAZEPINES NEG (NEG); CANNABINOIDS NEG (NEG); COCAINE NEG (NEG); METHADONE NEG (NEG); OPIATES NEG (NEG); PHENCYCLIDINE NEG (NEG)
[2017-04-17] MEDS ORDERED: INSULIN,REGULAR 150 UNIT DRIP 150 ML IV ONE (20:32)
[2017-04-17 22:15] VITALS: BP 117/66
[2017-04-17 22:30] VITALS: BP 121/77
[2017-04-17] MEDS: MORPHINE SULFATE 4 MG/ML DISP.SYRIN. IV PRN (22:32)
[2017-04-17 22:45] VITALS: BP 139/85
--- NOTE | 2017-04-17 22:52 | PDOC1 ---
History and Physical Identification/Chief Complaint Chief Complaint Nausea and vomiting Problems: History of Present Illness History of Present Illness A 21 female with hx of diabetes on insulin dependance presented to ER with c/o nausea, diarrhea and abdominal pain. epigastric and chest discomfort noted today , This morning her B > 300, denies any non compliance, however she might had some sick contacts. Denies any fevers, Past Medical History Cardiovascular: No pertinent hx Pulmonary: Asthma GI: GERD, Other Heme/Onc: No pertinent hx Hepatobiliary: No pertinent hx Psych: No pertinent hx Rheumatologic: No pertinent hx Infectious disease: No pertinent hx Renal/: No pertinent hx Endocrine: Diabetes Past Surgical History Past Surgical History: No pertinent history Family History Family History: No Significant, Other (DM) Social History Smoke: No ALCOHOL: rare Drugs: None, Marijuana Current Problem List Problem List Problems Medical Problems: (1) DKA (diabetic ketoacidoses) Status: Acute Current Medications Current Medications Current Medications Medications (Trade) Dose Ordered Sig/Bakari Start Time Stop Time Status Last Admin Dose Admin Aspirin (Ralph Aspirin) 325 mg 1X ONCE 04/17/17 19:30 04/17/17 19:31 DC 04/17/17 19:45 325 MG Insulin Human Regular 150 ml @ As Directed STK-MED ONCE 04/17/17 20:32 04/17/17 20:33 DC Insulin Human Regular 150 unit/ Sodium Chloride 151.5 ml @ 0 mls/hr CONT PRN PRN 04/17/17 20:15 04/17/17 20:43 11.9 MLS/HR Morphine Sulfate 4 mg PRN Q2HR PRN 04/17/17 21:15 04/18/17 21:14 04/17/17 22:32 4 MG Ondansetron HCl (Zofran) 4 mg PRN Q8HRS PRN 04/17/17 21:15 04/18/17 21:14 Potassium Chloride 100 ml @ 100 mls/hr PRN Q1HR PRN 04/17/17 20:15 Sodium Chloride 1,000 ml @ 250 mls/hr Q4H 04/17/17 23:00 04/17/17 22:28 250 MLS/HR Allergies Allergies Allergies Coded Allergies Type Severity Reaction Last Updated Verified No Known Medication Allergies Allergy Unknown 12/31/16 Yes ROS Review of System CONSTITUTIONAL: No fever or chills EYES: No recent changes SKIN: No rash or itching CARDIOVASCULAR: No chest pain, syncope, palpitations, or edema RESPIRATORY: No SOB or cough GASTROINTESTINAL: nausea, vomiting or abdominal pain NEUROLOGICAL: No headaches or weakness ENDOCRINE: No cold or heat intolerance GENITOURINARY: No urgency or frequency of urination MUSCULOSKELETAL: No back pain or joint pain LYMPHATICS: No enlarged lymph nodes PSYCHIATRIC: No anxiety or depression Physical Exam Physical Exam GEN.: No apparent distress. Alert and oriented 3, Dehydrated, thin built HEENT: Head is normocephalic, atraumatic NECK: Supple. no JVD LUNGS: Clear to auscultation. HEART: RRR, S1, S2 present. Peripheral pulses intact ABDOMEN: Soft, nontender. Positive bowel sounds. EXTREMITIES: Without any cyanosis. NEUROLOGIC: Normal speech, normal tone PSYCHIATRIC: Normal affect, normal mood. SKIN: No visible ulcerations Vitals Vitals Vital Signs Date Time Temp Pulse Resp B/P (MAP) Pulse Ox O2 Delivery O2 Flow Rate FiO2 04/17/17 22:32 22 100 Room Air 04/17/17 21:23 132 101/53 (69) 04/17/17 19:29 98.9 98.9 Labs Labs Laboratory Tests Test 04/17/17 18:32 04/17/17 19:04 04/17/17 19:23 04/17/17 19:32 Bedside Urine HCG, Qualitative Hcg negative (Negative) Urine Collection Type Unknown Urine Color Yellow Urine Clarity Cloudy Urine pH 5.5 Urine Specific [place] >=1.030 Urine Protein Negative mg/dL (NEG-TRACE) Urine Glucose (UA) >=1000 mg/dL (NEG) Urine Ketones (Stick) >=80 mg/dL (NEG) Urine Blood Negative (NEG) Urine Nitrite Negative (NEG) Urine Bilirubin Negative (NEG) Urine Urobilinogen Dipstick 0.2 mg/dL (0.2 mg/dL) Urine Leukocyte Esterase Negative (NEG) Urine RBC 0 /HPF (0-2) Urine WBC 1-4 /HPF (0-4) Urine Squamous Epithelial Cells Many /LPF Urine Bacteria Moderate /HPF (0-FEW) Urine Opiates Screen Neg (NEG) Urine Methadone Screen Neg (NEG) Urine Barbiturates Neg (NEG) Urine Phencyclidine Screen Neg (NEG) Urine Amphetamine/Methamphetamine Neg (NEG) Urine Benzodiazepines Screen Neg (NEG) Urine Cocaine Screen Neg (NEG) Urine Cannabinoids Screen Neg (NEG) Urine Ethyl Alcohol Neg (NEG) Glucose (Fingerstick) 525 mg/dL (70-99) White Blood Count 8.7 x10^3/uL (4.0-11.0) Red Blood Count 4.87 x10^6/uL (3.50-5.40) Hemoglobin 14.5 g/dL (12.0-15.5) Hematocrit 45.2 % (36.0-47.0) Mean Corpuscular Volume 93 fL (79-100) Mean Corpuscular Hemoglobin 30 pg (25-35) Mean Corpuscular Hemoglobin Concent 32 g/dL (31-37) Red Cell Distribution Width 13.3 % (11.5-14.5) Platelet Count 456 x10^3/uL (140-400) Neutrophils (%) (Auto) 65 % (31-73) Lymphocytes (%) (Auto) 28 % (24-48) Monocytes (%) (Auto) 6 % (0-9) Eosinophils (%) (Auto) 0 % (0-3) Basophils (%) (Auto) 1 % (0-3) Neutrophils # (Auto) 5.6 x10^3uL (1.8-7.7) Lymphocytes # (Auto) 2.4 x10^3/uL (1.0-4.8) Monocytes # (Auto) 0.5 x10^3/uL (0.0-1.1) Eosinophils # (Auto) 0.0 x10^3/uL (0.0-0.7) Basophils # (Auto) 0.1 x10^3/uL (0.0-0.2) Prothrombin Time 13.1 SEC (11.7-14.0) Prothromb Time International Ratio 1.1 (0.8-1.1) Sodium Level 138 mmol/L (136-145) Potassium Level 5.0 mmol/L (3.5-5.1) Chloride Level 96 mmol/L (98-107) Carbon Dioxide Level 16 mmol/L (21-32) Anion Gap 26 (6-14) Blood Urea Nitrogen 17 mg/dL (7-20) Creatinine 0.9 mg/dL (0.6-1.0) Estimated GFR (Cockcroft-Gault) 94.7 BUN/Creatinine Ratio 19 (6-20) Glucose Level 654 mg/dL (70-99) Lactic Acid Level 2.2 mmol/L (0.4-2.0) Calcium Level 10.0 mg/dL (8.5-10.1) Phosphorus Level 5.4 mg/dL (2.6-4.7) Magnesium Level 2.0 mg/dL (1.8-2.4) Total Bilirubin 1.5 mg/dL (0.2-1.0) Aspartate Amino Transf (AST/SGOT) 21 U/L (15-37) Alanine Aminotransferase (ALT/SGPT) 25 U/L (14-59) Alkaline Phosphatase 104 U/L (46-116) Creatine Kinase 44 U/L (26-192) Creatine Kinase MB (Mass) < 0.5 ng/mL (0.0-3.6) Creatine Kinase MB Relative Index % (0-4) Troponin I Quantitative < 0.017 ng/mL (0.000-0.055) [id number]-Type Natriuretic Peptide 292 pg/mL (0-124) Total Protein 7.7 g/dL (6.4-8.2) Albumin 4.0 g/dL (3.4-5.0) Albumin/Globulin Ratio 1.1 (1.0-1.7) Lipase 52 U/L (73-393) Thyroid Stimulating Hormone (TSH) 0.378 uIU/mL (0.358-3.74) Serum Test, Qualitative Negative (NEG) Test 04/17/17 21:46 Glucose (Fingerstick) 503 mg/dL (70-99) Laboratory Tests Test 04/17/17 18:32 04/17/17 19:04 04/17/17 19:23 04/17/17 19:32 Bedside Urine HCG, Qualitative Hcg negative (Negative) Urine Collection Type Unknown Urine Color Yellow Urine Clarity Cloudy Urine pH 5.5 Urine Specific [place] >=1.030 Urine Protein Negative mg/dL (NEG-TRACE) Urine Glucose (UA) >=1000 mg/dL (NEG) Urine Ketones (Stick) >=80 mg/dL (NEG) Urine Blood Negative (NEG) Urine Nitrite Negative (NEG) Urine Bilirubin Negative (NEG) Urine Urobilinogen Dipstick 0.2 mg/dL (0.2 mg/dL) Urine Leukocyte Esterase Negative (NEG) Urine RBC 0 /HPF (0-2) Urine WBC 1-4 /HPF (0-4) Urine Squamous Epithelial Cells Many /LPF Urine Bacteria Moderate /HPF (0-FEW) Urine Opiates Screen Neg (NEG) Urine Methadone Screen Neg (NEG) Urine Barbiturates Neg (NEG) Urine Phencyclidine Screen Neg (NEG) Urine Amphetamine/Methamphetamine Neg (NEG) Urine Benzodiazepines Screen Neg (NEG) Urine Cocaine Screen Neg (NEG) Urine Cannabinoids Screen Neg (NEG) Urine Ethyl Alcohol Neg (NEG) Glucose (Fingerstick) 525 mg/dL (70-99) White Blood Count 8.7 x10^3/uL (4.0-11.0) Red Blood Count 4.87 x10^6/uL (3.50-5.40) Hemoglobin 14.5 g/dL (12.0-15.5) Hematocrit 45.2 % (36.0-47.0) Mean Corpuscular Volume 93 fL (79-100) Mean Corpuscular Hemoglobin 30 pg (25-35) Mean Corpuscular Hemoglobin Concent 32 g/dL (31-37) Red Cell Distribution Width 13.3 % (11.5-14.5) Platelet Count 456 x10^3/uL (140-400) Neutrophils (%) (Auto) 65 % (31-73) Lymphocytes (%) (Auto) 28 % (24-48) Monocytes (%) (Auto) 6 % (0-9) Eosinophils (%) (Auto) 0 % (0-3) Basophils (%) (Auto) 1 % (0-3) Neutrophils # (Auto) 5.6 x10^3uL (1.8-7.7) Lymphocytes # (Auto) 2.4 x10^3/uL (1.0-4.8) Monocytes # (Auto) 0.5 x10^3/uL (0.0-1.1) Eosinophils # (Auto) 0.0 x10^3/uL (0.0-0.7) Basophils # (Auto) 0.1 x10^3/uL (0.0-0.2) Prothrombin Time 13.1 SEC (11.7-14.0) Prothromb Time International Ratio 1.1 (0.8-1.1) Sodium Level 138 mmol/L (136-145) Potassium Level 5.0 mmol/L (3.5-5.1) Chloride Level 96 mmol/L (98-107) Carbon Dioxide Level 16 mmol/L (21-32) Anion Gap 26 (6-14) Blood Urea Nitrogen 17 mg/dL (7-20) Creatinine 0.9 mg/dL (0.6-1.0) Estimated GFR (Cockcroft-Gault) 94.7 BUN/Creatinine Ratio 19 (6-20) Glucose Level 654 mg/dL (70-99) Lactic Acid Level 2.2 mmol/L (0.4-2.0) Calcium Level 10.0 mg/dL (8.5-10.1) Phosphorus Level 5.4 mg/dL (2.6-4.7) Magnesium Level 2.0 mg/dL (1.8-2.4) Total Bilirubin 1.5 mg/dL (0.2-1.0) Aspartate Amino Transf (AST/SGOT) 21 U/L (15-37) Alanine Aminotransferase (ALT/SGPT) 25 U/L (14-59) Alkaline Phosphatase 104 U/L (46-116) Creatine Kinase 44 U/L (26-192) Creatine Kinase MB (Mass) < 0.5 ng/mL (0.0-3.6) Creatine Kinase MB Relative Index % (0-4) Troponin I Quantitative < 0.017 ng/mL (0.000-0.055) ZG-[id number]-Type Natriuretic Peptide 292 pg/mL (0-124) Total Protein 7.7 g/dL (6.4-8.2) Albumin 4.0 g/dL (3.4-5.0) Albumin/Globulin Ratio 1.1 (1.0-1.7) Lipase 52 U/L (73-393) Thyroid Stimulating Hormone (TSH) 0.378 uIU/mL (0.358-3.74) Serum Test, Qualitative Negative (NEG) Test 04/17/17 21:46 Glucose (Fingerstick) 503 mg/dL (70-99) VTE Prophylaxis Ordered VTE Prophylaxis Devices: No VTE Pharmacological Prophylaxi: Yes Assessment/Plan Assessment/Plan DKA POA Dehydration Nausea and diarrhea. Plan admit to ICU DKA protocol IV hydration ICU electrolyte protocol Monitor phosphate no obvious source of infection on physical exam PRN Zofran NPO till am ice chips ok resume home Levemir from AM MARKUS CHANG MD Apr 17, 2017 22:52
[2017-04-17 23:00] VITALS: BP 137/77
[2017-04-17] MEDS ORDERED: IV 1/2 NORMAL SALINE 1,000 ML IV SCH (23:00)
[2017-04-17] MEDS ORDERED: GABA-586 PO (23:27)
[2017-04-17 23:30] VITALS: BP 119/78
[2017-04-17 23:33] LABS: GFR 83.9; MAGNESIUM 1.9 mg/dL (1.8-2.4); PHOSPHORUS 3.1 mg/dL (2.6-4.7); POTASSIUM 4.1 mmol/L (3.5-5.1)
[2017-04-18] VITALS (16 sets, daily range): BP systolic 90–140; BP diastolic 50–99
[2017-04-18] MEDS ORDERED: DEXTROSE 50% 25 GM / 50ML DISP.SYRIN. IV PRN
[2017-04-18] MEDS: POTASSIUM CHLORIDE 10MEQ 100 ML IV PRN ×2 (00:10→01:10)
[2017-04-18] MEDS: IV DEXTROSE 5 %-0.45 % NACL 1,000 ML IV SCH ×2 (00:11→03:56)
[2017-04-18] MEDS: MORPHINE SULFATE 4 MG/ML DISP.SYRIN. IV PRN ×5 (04:31→21:57)
[2017-04-18 04:39] LABS: BASO # 0.1 x10^3/uL (0.0-0.2); BASO % 1 % (0-3); EOS % 0 % (0-3); HEMATOCRIT 33.3 % (36.0-47.0); HEMOGLOBIN 11.1 g/dL (12.0-15.5); LYMPH # 3.5 x10^3/uL (1.0-4.8); LYMPH % 27 % (24-48); MEAN CORPUSCULAR HEMOGLOBIN 30 pg (25-35); MEAN CORPUSCULAR HGB CONC 33 g/dL (31-37); MEAN CORPUSCULAR VOLUME 89 fL (79-100); MONO % 8 % (0-9); NEUT % 64 % (31-73); PLATELET COUNT 337 x10^3/uL (140-400); RED BLOOD COUNT 3.73 x10^6/uL (3.50-5.40); RED CELL DISTRIBUTION WIDTH 12.7 % (11.5-14.5); WHITE BLOOD COUNT 12.9 x10^3/uL (4.0-11.0)
[2017-04-18 05:12] LABS: CALCIUM 8.4 mg/dL (8.5-10.1); CREATININE 0.7 mg/dL (0.6-1.0); GFR 126.6; MAGNESIUM 1.7 mg/dL (1.8-2.4); PHOSPHORUS 3.6 mg/dL (2.6-4.7); POTASSIUM 3.8 mmol/L (3.5-5.1)
[2017-04-18 05:16] LABS: ALBUMIN 2.6 g/dL (3.4-5.0); CALCIUM 8.3 mg/dL (8.5-10.1); CREATININE 0.7 mg/dL (0.6-1.0); GFR 126.6; POTASSIUM 3.7 mmol/L (3.5-5.1); TOTAL BILIRUBIN 0.6 mg/dL (0.2-1.0); TOTAL PROTEIN 5.3 g/dL (6.4-8.2)
[2017-04-18] MEDS: IV NORMAL SALINE 1000ML BAG 1,000 ML IV SCH ×3 (05:26→21:30)
--- NOTE | 2017-04-18 06:46 | EKG ---
[facility] [address] [place] [address] Test Date: 2017-04-17 Test Time: 19:34:25 Pat Name: CARLITOS POWELL Department: Room: Gender: F Training Consultant: : 1995 Requested By: BHARATH NAIDU Order Number: [id number] Reading MD: Measurements Intervals [place] Rate: 126 P: 54 [place]: 126 QRS: 62 QRSD: 78 T: 43 QT: 294 QTc: 426 Interpretive Statements SINUS TACHYCARDIA QRS(T) CONTOUR ABNORMALITY CONSIDER ANTEROSEPTAL MYOCARDIAL DAMAGE POSSIBLY ABNORMAL ECG RI6.01 No previous ECG available for comparison
--- NOTE | 2017-04-18 07:07 | EKG ---
[facility] [address] [place] [address] Test Date: 2017-04-17 Test Time: 19:43:28 Pat Name: CARLITOS POWELL Department: Room: 110 1 Gender: F Human Resources Temp: : 1995 Requested By: MARKUS CHANG Order Number: [id number] Reading MD: Measurements Intervals [place] Rate: 122 P: 126 [place]: 124 QRS: 110 QRSD: 78 T: 149 QT: 300 QTc: 429 Interpretive Statements SINUS TACHYCARDIA RIGHTWARD AXIS QRS(T) CONTOUR ABNORMALITY CONSISTENT WITH HIGH LATERAL INFARCT AGE UNDETERMINED ABNORMAL ECG RI6.01 No previous ECG available for comparison
[2017-04-18] MEDS: INSULIN ASPART 300 UNITS/3 ML INSULN.PEN SQ SCH ×3 (07:39→17:00)
--- NOTE | 2017-04-18 08:02 | RAD ---
Portable chest, 04/17/2017: History: Chest pain, nausea and vomiting Comparison is made to a study from 12/04/2016. The heart size and pulmonary vascularity are normal. No pulmonary infiltrates are seen. There is no evidence of pleural fluid. IMPRESSION: No acute cardiopulmonary abnormality is detected.
--- NOTE | 2017-04-18 08:15 | PDOC ---
PROGRESS NOTES Chief Complaint Chief Complaint 1. DKA: glucose 525 on admission 2. DM type 1 3. Asthma 4. Gerd 5. Leukocytosis: WBC 12.9 6. Hypomagnesia: 1.7 History of Present Illness History of Present Illness pt is seen in ICU today with c/o abdominal discomfort in RUQ, it is very TTP and she is unable to move, discussed ultrasound to assess for gallstones and other abnormalities and pt was amenable to the procedure Vitals Vitals Vital Signs Date Time Temp Pulse Resp B/P (MAP) Pulse Ox O2 Delivery O2 Flow Rate FiO2 04/18/17 07:00 101 10 103/59 (74) 100 Room Air 04/18/17 04:00 98.0 98.0 Physical Exam General: Alert, Oriented X3, Cooperative, moderate distress Heart: Regular rate, No murmurs Lungs: Clear, Other (no wheezes or crackles) Abdomen: Normal bowel sounds, Soft, Other (ttp and possible rebound tenderness in RUQ) Extremities: No clubbing, No cyanosis, No edema Skin: No rashes, No breakdown Labs LABS Laboratory Tests Test 04/17/17 18:32 04/17/17 19:04 04/17/17 19:23 04/17/17 19:32 Bedside Urine HCG, Qualitative Hcg negative (Negative) Urine Collection Type Unknown Urine Color Yellow Urine Clarity Cloudy Urine pH 5.5 Urine Specific [place] >=1.030 Urine Protein Negative mg/dL (NEG-TRACE) Urine Glucose (UA) >=1000 mg/dL (NEG) Urine Ketones (Stick) >=80 mg/dL (NEG) Urine Blood Negative (NEG) Urine Nitrite Negative (NEG) Urine Bilirubin Negative (NEG) Urine Urobilinogen Dipstick 0.2 mg/dL (0.2 mg/dL) Urine Leukocyte Esterase Negative (NEG) Urine RBC 0 /HPF (0-2) Urine WBC 1-4 /HPF (0-4) Urine Squamous Epithelial Cells Many /LPF Urine Bacteria Moderate /HPF (0-FEW) Urine Opiates Screen Neg (NEG) Urine Methadone Screen Neg (NEG) Urine Barbiturates Neg (NEG) Urine Phencyclidine Screen Neg (NEG) Urine Amphetamine/Methamphetamine Neg (NEG) Urine Benzodiazepines Screen Neg (NEG) Urine Cocaine Screen Neg (NEG) Urine Cannabinoids Screen Neg (NEG) Urine Ethyl Alcohol Neg (NEG) Glucose (Fingerstick) 525 mg/dL (70-99) White Blood Count 8.7 x10^3/uL (4.0-11.0) Red Blood Count 4.87 x10^6/uL (3.50-5.40) Hemoglobin 14.5 g/dL (12.0-15.5) Hematocrit 45.2 % (36.0-47.0) Mean Corpuscular Volume 93 fL (79-100) Mean Corpuscular Hemoglobin 30 pg (25-35) Mean Corpuscular Hemoglobin Concent 32 g/dL (31-37) Red Cell Distribution Width 13.3 % (11.5-14.5) Platelet Count 456 x10^3/uL (140-400) Neutrophils (%) (Auto) 65 % (31-73) Lymphocytes (%) (Auto) 28 % (24-48) Monocytes (%) (Auto) 6 % (0-9) Eosinophils (%) (Auto) 0 % (0-3) Basophils (%) (Auto) 1 % (0-3) Neutrophils # (Auto) 5.6 x10^3uL (1.8-7.7) Lymphocytes # (Auto) 2.4 x10^3/uL (1.0-4.8) Monocytes # (Auto) 0.5 x10^3/uL (0.0-1.1) Eosinophils # (Auto) 0.0 x10^3/uL (0.0-0.7) Basophils # (Auto) 0.1 x10^3/uL (0.0-0.2) Prothrombin Time 13.1 SEC (11.7-14.0) Prothromb Time International Ratio 1.1 (0.8-1.1) Sodium Level 138 mmol/L (136-145) Potassium Level 5.0 mmol/L (3.5-5.1) Chloride Level 96 mmol/L (98-107) Carbon Dioxide Level 16 mmol/L (21-32) Anion Gap 26 (6-14) Blood Urea Nitrogen 17 mg/dL (7-20) Creatinine 0.9 mg/dL (0.6-1.0) Estimated GFR (Cockcroft-Gault) 94.7 BUN/Creatinine Ratio 19 (6-20) Glucose Level 654 mg/dL (70-99) Lactic Acid Level 2.2 mmol/L (0.4-2.0) Calcium Level 10.0 mg/dL (8.5-10.1) Phosphorus Level 5.4 mg/dL (2.6-4.7) Magnesium Level 2.0 mg/dL (1.8-2.4) Total Bilirubin 1.5 mg/dL (0.2-1.0) Aspartate Amino Transf (AST/SGOT) 21 U/L (15-37) Alanine Aminotransferase (ALT/SGPT) 25 U/L (14-59) Alkaline Phosphatase 104 U/L (46-116) Creatine Kinase 44 U/L (26-192) Creatine Kinase MB (Mass) < 0.5 ng/mL (0.0-3.6) Creatine Kinase MB Relative Index % (0-4) Troponin I Quantitative < 0.017 ng/mL (0.000-0.055) GQ-Vky-A-Type Natriuretic Peptide 292 pg/mL (0-124) Total Protein 7.7 g/dL (6.4-8.2) Albumin 4.0 g/dL (3.4-5.0) Albumin/Globulin Ratio 1.1 (1.0-1.7) Lipase 52 U/L (73-393) Thyroid Stimulating Hormone (TSH) 0.378 uIU/mL (0.358-3.74) Serum Test, Qualitative Negative (NEG) Test 04/17/17 21:46 04/17/17 22:50 04/17/17 23:05 04/17/17 23:59 Glucose (Fingerstick) 503 mg/dL (70-99) 332 mg/dL (70-99) 161 mg/dL (70-99) Sodium Level 142 mmol/L (136-145) Potassium Level 4.1 mmol/L (3.5-5.1) Chloride Level 109 mmol/L (98-107) Carbon Dioxide Level 11 mmol/L (21-32) Anion Gap 22 (6-14) Blood Urea Nitrogen 18 mg/dL (7-20) Creatinine 1.0 mg/dL (0.6-1.0) Estimated GFR (Cockcroft-Gault) 83.9 Glucose Level 302 mg/dL (70-99) Lactic Acid Level 2.9 mmol/L (0.4-2.0) Calcium Level 8.0 mg/dL (8.5-10.1) Phosphorus Level 3.1 mg/dL (2.6-4.7) Magnesium Level 1.9 mg/dL (1.8-2.4) Test 04/18/17 00:59 04/18/17 02:03 04/18/17 03:05 04/18/17 04:03 Glucose (Fingerstick) 157 mg/dL (70-99) 161 mg/dL (70-99) 147 mg/dL (70-99) White Blood Count 12.9 x10^3/uL (4.0-11.0) Red Blood Count 3.73 x10^6/uL (3.50-5.40) Hemoglobin 11.1 g/dL (12.0-15.5) Hematocrit 33.3 % (36.0-47.0) Mean Corpuscular Volume 89 fL (79-100) Mean Corpuscular Hemoglobin 30 pg (25-35) Mean Corpuscular Hemoglobin Concent 33 g/dL (31-37) Red Cell Distribution Width 12.7 % (11.5-14.5) Platelet Count 337 x10^3/uL (140-400) Neutrophils (%) (Auto) 64 % (31-73) Lymphocytes (%) (Auto) 27 % (24-48) Monocytes (%) (Auto) 8 % (0-9) Eosinophils (%) (Auto) 0 % (0-3) Basophils (%) (Auto) 1 % (0-3) Neutrophils # (Auto) 8.2 x10^3uL (1.8-7.7) Lymphocytes # (Auto) 3.5 x10^3/uL (1.0-4.8) Monocytes # (Auto) 1.0 x10^3/uL (0.0-1.1) Eosinophils # (Auto) 0.0 x10^3/uL (0.0-0.7) Basophils # (Auto) 0.1 x10^3/uL (0.0-0.2) Sodium Level 140 mmol/L (136-145) Potassium Level 3.8 mmol/L (3.5-5.1) Chloride Level 108 mmol/L (98-107) Carbon Dioxide Level 23 mmol/L (21-32) Anion Gap 9 (6-14) Blood Urea Nitrogen 12 mg/dL (7-20) Creatinine 0.7 mg/dL (0.6-1.0) Estimated GFR (Cockcroft-Gault) 126.6 BUN/Creatinine Ratio 17 (6-20) Glucose Level 131 mg/dL (70-99) Lactic Acid Level 1.5 mmol/L (0.4-2.0) Calcium Level 8.4 mg/dL (8.5-10.1) Phosphorus Level 3.6 mg/dL (2.6-4.7) Magnesium Level 1.7 mg/dL (1.8-2.4) Total Bilirubin 0.6 mg/dL (0.2-1.0) Aspartate Amino Transf (AST/SGOT) 19 U/L (15-37) Alanine Aminotransferase (ALT/SGPT) 21 U/L (14-59) Alkaline Phosphatase 67 U/L (46-116) Total Protein 5.3 g/dL (6.4-8.2) Albumin 2.6 g/dL (3.4-5.0) Albumin/Globulin Ratio 1.0 (1.0-1.7) Test 04/18/17 04:14 04/18/17 05:24 04/18/17 06:28 04/18/17 07:36 Glucose (Fingerstick) 115 mg/dL (70-99) 148 mg/dL (70-99) 147 mg/dL (70-99) 125 mg/dL (70-99) Review of Systems Review of Systems denies nausea, vomiting, or KHOURY severe pain in RUQ, nonradiating, tender to palpation Assessment and Plan Assessmemt and Plan Assessment 1. DKA: glucose 525 on admission 2. DM type 1 3. Asthma 4. Gerd 5. Leukocytosis: WBC 12.9 6. Hypomagnesia: 1.7 Plan 1. Cont IVF, anion gap closed so no insulin 2. Cont ICU monitoring, frequent glucose checks 3. Reviewed imaging, CXR showed no acute processes, EKG was sinus tach 4. Zofran prn for nausea 5. Discussed plan of care with nursing 6. PT/OT 7. Recheck CBC and BMP tomorrow 8. Mg supplementation if continues to downtrend 9. 500 cc bolus today for hypotension in 80/50s range 10. Bedside ultrasound for RUQ pain: assess for gallstones, pancreatitis, appendicitis, colitis Total time 31 minutes Problems: Comment Review of Relevant I have reviewed the following items cristela (where applicable) has been applied. Labs Laboratory Tests Test 04/17/17 18:32 04/17/17 19:04 04/17/17 19:23 04/17/17 19:32 Bedside Urine HCG, Qualitative Hcg negative (Negative) Urine Collection Type Unknown Urine Color Yellow Urine Clarity Cloudy Urine pH 5.5 Urine Specific [place] >=1.030 Urine Protein Negative mg/dL (NEG-TRACE) Urine Glucose (UA) >=1000 mg/dL (NEG) Urine Ketones (Stick) >=80 mg/dL (NEG) Urine Blood Negative (NEG) Urine Nitrite Negative (NEG) Urine Bilirubin Negative (NEG) Urine Urobilinogen Dipstick 0.2 mg/dL (0.2 mg/dL) Urine Leukocyte Esterase Negative (NEG) Urine RBC 0 /HPF (0-2) Urine WBC 1-4 /HPF (0-4) Urine Squamous Epithelial Cells Many /LPF Urine Bacteria Moderate /HPF (0-FEW) Urine Opiates Screen Neg (NEG) Urine Methadone Screen Neg (NEG) Urine Barbiturates Neg (NEG) Urine Phencyclidine Screen Neg (NEG) Urine Amphetamine/Methamphetamine Neg (NEG) Urine Benzodiazepines Screen Neg (NEG) Urine Cocaine Screen Neg (NEG) Urine Cannabinoids Screen Neg (NEG) Urine Ethyl Alcohol Neg (NEG) Glucose (Fingerstick) 525 mg/dL (70-99) White Blood Count 8.7 x10^3/uL (4.0-11.0) Red Blood Count 4.87 x10^6/uL (3.50-5.40) Hemoglobin 14.5 g/dL (12.0-15.5) Hematocrit 45.2 % (36.0-47.0) Mean Corpuscular Volume 93 fL (79-100) Mean Corpuscular Hemoglobin 30 pg (25-35) Mean Corpuscular Hemoglobin Concent 32 g/dL (31-37) Red Cell Distribution Width 13.3 % (11.5-14.5) Platelet Count 456 x10^3/uL (140-400) Neutrophils (%) (Auto) 65 % (31-73) Lymphocytes (%) (Auto) 28 % (24-48) Monocytes (%) (Auto) 6 % (0-9) Eosinophils (%) (Auto) 0 % (0-3) Basophils (%) (Auto) 1 % (0-3) Neutrophils # (Auto) 5.6 x10^3uL (1.8-7.7) Lymphocytes # (Auto) 2.4 x10^3/uL (1.0-4.8) Monocytes # (Auto) 0.5 x10^3/uL (0.0-1.1) Eosinophils # (Auto) 0.0 x10^3/uL (0.0-0.7) Basophils # (Auto) 0.1 x10^3/uL (0.0-0.2) Prothrombin Time 13.1 SEC (11.7-14.0) Prothromb Time International Ratio 1.1 (0.8-1.1) Sodium Level 138 mmol/L (136-145) Potassium Level 5.0 mmol/L (3.5-5.1) Chloride Level 96 mmol/L (98-107) Carbon Dioxide Level 16 mmol/L (21-32) Anion Gap 26 (6-14) Blood Urea Nitrogen 17 mg/dL (7-20) Creatinine 0.9 mg/dL (0.6-1.0) Estimated GFR (Cockcroft-Gault) 94.7 BUN/Creatinine Ratio 19 (6-20) Glucose Level 654 mg/dL (70-99) Lactic Acid Level 2.2 mmol/L (0.4-2.0) Calcium Level 10.0 mg/dL (8.5-10.1) Phosphorus Level 5.4 mg/dL (2.6-4.7) Magnesium Level 2.0 mg/dL (1.8-2.4) Total Bilirubin 1.5 mg/dL (0.2-1.0) Aspartate Amino Transf (AST/SGOT) 21 U/L (15-37) Alanine Aminotransferase (ALT/SGPT) 25 U/L (14-59) Alkaline Phosphatase 104 U/L (46-116) Creatine Kinase 44 U/L (26-192) Creatine Kinase MB (Mass) < 0.5 ng/mL (0.0-3.6) Creatine Kinase MB Relative Index % (0-4) Troponin I Quantitative < 0.017 ng/mL (0.000-0.055) WU-Kkl-E-Type Natriuretic Peptide 292 pg/mL (0-124) Total Protein 7.7 g/dL (6.4-8.2) Albumin 4.0 g/dL (3.4-5.0) Albumin/Globulin Ratio 1.1 (1.0-1.7) Lipase 52 U/L (73-393) Thyroid Stimulating Hormone (TSH) 0.378 uIU/mL (0.358-3.74) Serum Test, Qualitative Negative (NEG) Test 04/17/17 21:46 04/17/17 22:50 04/17/17 23:05 04/17/17 23:59 Glucose (Fingerstick) 503 mg/dL (70-99) 332 mg/dL (70-99) 161 mg/dL (70-99) Sodium Level 142 mmol/L (136-145) Potassium Level 4.1 mmol/L (3.5-5.1) Chloride Level 109 mmol/L (98-107) Carbon Dioxide Level 11 mmol/L (21-32) Anion Gap 22 (6-14) Blood Urea Nitrogen 18 mg/dL (7-20) Creatinine 1.0 mg/dL (0.6-1.0) Estimated GFR (Cockcroft-Gault) 83.9 Glucose Level 302 mg/dL (70-99) Lactic Acid Level 2.9 mmol/L (0.4-2.0) Calcium Level 8.0 mg/dL (8.5-10.1) Phosphorus Level 3.1 mg/dL (2.6-4.7) Magnesium Level 1.9 mg/dL (1.8-2.4) Test 04/18/17 00:59 04/18/17 02:03 04/18/17 03:05 04/18/17 04:03 Glucose (Fingerstick) 157 mg/dL (70-99) 161 mg/dL (70-99) 147 mg/dL (70-99) White Blood Count 12.9 x10^3/uL (4.0-11.0) Red Blood Count 3.73 x10^6/uL (3.50-5.40) Hemoglobin 11.1 g/dL (12.0-15.5) Hematocrit 33.3 % (36.0-47.0) Mean Corpuscular Volume 89 fL (79-100) Mean Corpuscular Hemoglobin 30 pg (25-35) Mean Corpuscular Hemoglobin Concent 33 g/dL (31-37) Red Cell Distribution Width 12.7 % (11.5-14.5) Platelet Count 337 x10^3/uL (140-400) Neutrophils (%) (Auto) 64 % (31-73) Lymphocytes (%) (Auto) 27 % (24-48) Monocytes (%) (Auto) 8 % (0-9) Eosinophils (%) (Auto) 0 % (0-3) Basophils (%) (Auto) 1 % (0-3) Neutrophils # (Auto) 8.2 x10^3uL (1.8-7.7) Lymphocytes # (Auto) 3.5 x10^3/uL (1.0-4.8) Monocytes # (Auto) 1.0 x10^3/uL (0.0-1.1) Eosinophils # (Auto) 0.0 x10^3/uL (0.0-0.7) Basophils # (Auto) 0.1 x10^3/uL (0.0-0.2) Sodium Level 140 mmol/L (136-145) Potassium Level 3.8 mmol/L (3.5-5.1) Chloride Level 108 mmol/L (98-107) Carbon Dioxide Level 23 mmol/L (21-32) Anion Gap 9 (6-14) Blood Urea Nitrogen 12 mg/dL (7-20) Creatinine 0.7 mg/dL (0.6-1.0) Estimated GFR (Cockcroft-Gault) 126.6 BUN/Creatinine Ratio 17 (6-20) Glucose Level 131 mg/dL (70-99) Lactic Acid Level 1.5 mmol/L (0.4-2.0) Calcium Level 8.4 mg/dL (8.5-10.1) Phosphorus Level 3.6 mg/dL (2.6-4.7) Magnesium Level 1.7 mg/dL (1.8-2.4) Total Bilirubin 0.6 mg/dL (0.2-1.0) Aspartate Amino Transf (AST/SGOT) 19 U/L (15-37) Alanine Aminotransferase (ALT/SGPT) 21 U/L (14-59) Alkaline Phosphatase 67 U/L (46-116) Total Protein 5.3 g/dL (6.4-8.2) Albumin 2.6 g/dL (3.4-5.0) Albumin/Globulin Ratio 1.0 (1.0-1.7) Test 04/18/17 04:14 04/18/17 05:24 04/18/17 06:28 04/18/17 07:36 Glucose (Fingerstick) 115 mg/dL (70-99) 148 mg/dL (70-99) 147 mg/dL (70-99) 125 mg/dL (70-99) Laboratory Tests Test 04/17/17 18:32 04/17/17 19:04 04/17/17 19:23 04/17/17 19:32 Bedside Urine HCG, Qualitative Hcg negative (Negative) Urine Collection Type Unknown Urine Color Yellow Urine Clarity Cloudy Urine pH 5.5 Urine Specific [place] >=1.030 Urine Protein Negative mg/dL (NEG-TRACE) Urine Glucose (UA) >=1000 mg/dL (NEG) Urine Ketones (Stick) >=80 mg/dL (NEG) Urine Blood Negative (NEG) Urine Nitrite Negative (NEG) Urine Bilirubin Negative (NEG) Urine Urobilinogen Dipstick 0.2 mg/dL (0.2 mg/dL) Urine Leukocyte Esterase Negative (NEG) Urine RBC 0 /HPF (0-2) Urine WBC 1-4 /HPF (0-4) Urine Squamous Epithelial Cells Many /LPF Urine Bacteria Moderate /HPF (0-FEW) Urine Opiates Screen Neg (NEG) Urine Methadone Screen Neg (NEG) Urine Barbiturates Neg (NEG) Urine Phencyclidine Screen Neg (NEG) Urine Amphetamine/Methamphetamine Neg (NEG) Urine Benzodiazepines Screen Neg (NEG) Urine Cocaine Screen Neg (NEG) Urine Cannabinoids Screen Neg (NEG) Urine Ethyl Alcohol Neg (NEG) Glucose (Fingerstick) 525 mg/dL (70-99) White Blood Count 8.7 x10^3/uL (4.0-11.0) Red Blood Count 4.87 x10^6/uL (3.50-5.40) Hemoglobin 14.5 g/dL (12.0-15.5) Hematocrit 45.2 % (36.0-47.0) Mean Corpuscular Volume 93 fL (79-100) Mean Corpuscular Hemoglobin 30 pg (25-35) Mean Corpuscular Hemoglobin Concent 32 g/dL (31-37) Red Cell Distribution Width 13.3 % (11.5-14.5) Platelet Count 456 x10^3/uL (140-400) Neutrophils (%) (Auto) 65 % (31-73) Lymphocytes (%) (Auto) 28 % (24-48) Monocytes (%) (Auto) 6 % (0-9) Eosinophils (%) (Auto) 0 % (0-3) Basophils (%) (Auto) 1 % (0-3) Neutrophils # (Auto) 5.6 x10^3uL (1.8-7.7) Lymphocytes # (Auto) 2.4 x10^3/uL (1.0-4.8) Monocytes # (Auto) 0.5 x10^3/uL (0.0-1.1) Eosinophils # (Auto) 0.0 x10^3/uL (0.0-0.7) Basophils # (Auto) 0.1 x10^3/uL (0.0-0.2) Prothrombin Time 13.1 SEC (11.7-14.0) Prothromb Time International Ratio 1.1 (0.8-1.1) Sodium Level 138 mmol/L (136-145) Potassium Level 5.0 mmol/L (3.5-5.1) Chloride Level 96 mmol/L (98-107) Carbon Dioxide Level 16 mmol/L (21-32) Anion Gap 26 (6-14) Blood Urea Nitrogen 17 mg/dL (7-20) Creatinine 0.9 mg/dL (0.6-1.0) Estimated GFR (Cockcroft-Gault) 94.7 BUN/Creatinine Ratio 19 (6-20) Glucose Level 654 mg/dL (70-99) Lactic Acid Level 2.2 mmol/L (0.4-2.0) Calcium Level 10.0 mg/dL (8.5-10.1) Phosphorus Level 5.4 mg/dL (2.6-4.7) Magnesium Level 2.0 mg/dL (1.8-2.4) Total Bilirubin 1.5 mg/dL (0.2-1.0) Aspartate Amino Transf (AST/SGOT) 21 U/L (15-37) Alanine Aminotransferase (ALT/SGPT) 25 U/L (14-59) Alkaline Phosphatase 104 U/L (46-116) Creatine Kinase 44 U/L (26-192) Creatine Kinase MB (Mass) < 0.5 ng/mL (0.0-3.6) Creatine Kinase MB Relative Index % (0-4) Troponin I Quantitative < 0.017 ng/mL (0.000-0.055) PQ-Hus-J-Type Natriuretic Peptide 292 pg/mL (0-124) Total Protein 7.7 g/dL (6.4-8.2) Albumin 4.0 g/dL (3.4-5.0) Albumin/Globulin Ratio 1.1 (1.0-1.7) Lipase 52 U/L (73-393) Thyroid Stimulating Hormone (TSH) 0.378 uIU/mL (0.358-3.74) Serum Test, Qualitative Negative (NEG) Test 04/17/17 21:46 04/17/17 22:50 04/17/17 23:05 04/17/17 23:59 Glucose (Fingerstick) 503 mg/dL (70-99) 332 mg/dL (70-99) 161 mg/dL (70-99) Sodium Level 142 mmol/L (136-145) Potassium Level 4.1 mmol/L (3.5-5.1) Chloride Level 109 mmol/L (98-107) Carbon Dioxide Level 11 mmol/L (21-32) Anion Gap 22 (6-14) Blood Urea Nitrogen 18 mg/dL (7-20) Creatinine 1.0 mg/dL (0.6-1.0) Estimated GFR (Cockcroft-Gault) 83.9 Glucose Level 302 mg/dL (70-99) Lactic Acid Level 2.9 mmol/L (0.4-2.0) Calcium Level 8.0 mg/dL (8.5-10.1) Phosphorus Level 3.1 mg/dL (2.6-4.7) Magnesium Level 1.9 mg/dL (1.8-2.4) Test 04/18/17 00:59 04/18/17 02:03 04/18/17 03:05 04/18/17 04:03 Glucose (Fingerstick) 157 mg/dL (70-99) 161 mg/dL (70-99) 147 mg/dL (70-99) White Blood Count 12.9 x10^3/uL (4.0-11.0) Red Blood Count 3.73 x10^6/uL (3.50-5.40) Hemoglobin 11.1 g/dL (12.0-15.5) Hematocrit 33.3 % (36.0-47.0) Mean Corpuscular Volume 89 fL (79-100) Mean Corpuscular Hemoglobin 30 pg (25-35) Mean Corpuscular Hemoglobin Concent 33 g/dL (31-37) Red Cell Distribution Width 12.7 % (11.5-14.5) Platelet Count 337 x10^3/uL (140-400) Neutrophils (%) (Auto) 64 % (31-73) Lymphocytes (%) (Auto) 27 % (24-48) Monocytes (%) (Auto) 8 % (0-9) Eosinophils (%) (Auto) 0 % (0-3) Basophils (%) (Auto) 1 % (0-3) Neutrophils # (Auto) 8.2 x10^3uL (1.8-7.7) Lymphocytes # (Auto) 3.5 x10^3/uL (1.0-4.8) Monocytes # (Auto) 1.0 x10^3/uL (0.0-1.1) Eosinophils # (Auto) 0.0 x10^3/uL (0.0-0.7) Basophils # (Auto) 0.1 x10^3/uL (0.0-0.2) Sodium Level 140 mmol/L (136-145) Potassium Level 3.8 mmol/L (3.5-5.1) Chloride Level 108 mmol/L (98-107) Carbon Dioxide Level 23 mmol/L (21-32) Anion Gap 9 (6-14) Blood Urea Nitrogen 12 mg/dL (7-20) Creatinine 0.7 mg/dL (0.6-1.0) Estimated GFR (Cockcroft-Gault) 126.6 BUN/Creatinine Ratio 17 (6-20) Glucose Level 131 mg/dL (70-99) Lactic Acid Level 1.5 mmol/L (0.4-2.0) Calcium Level 8.4 mg/dL (8.5-10.1) Phosphorus Level 3.6 mg/dL (2.6-4.7) Magnesium Level 1.7 mg/dL (1.8-2.4) Total Bilirubin 0.6 mg/dL (0.2-1.0) Aspartate Amino Transf (AST/SGOT) 19 U/L (15-37) Alanine Aminotransferase (ALT/SGPT) 21 U/L (14-59) Alkaline Phosphatase 67 U/L (46-116) Total Protein 5.3 g/dL (6.4-8.2) Albumin 2.6 g/dL (3.4-5.0) Albumin/Globulin Ratio 1.0 (1.0-1.7) Test 04/18/17 04:14 04/18/17 05:24 04/18/17 06:28 04/18/17 07:36 Glucose (Fingerstick) 115 mg/dL (70-99) 148 mg/dL (70-99) 147 mg/dL (70-99) 125 mg/dL (70-99) Medications Current Medications Sodium Chloride 1,000 ml @ 100 mls/hr Q10H IV ; Start 04/17/17 at 19:22; Stop at 05:19; Status DC Ondansetron HCl (Zofran) 8 mg 1X ONCE IV Last administered on 04/17/17 19:43; Start 04/17/17 at 19:30; Stop 04/17/17 at 19:31; Status DC Aspirin (Ralph Aspirin) 325 mg 1X ONCE PO Last administered on 04/17/17 19:45 ; Start 04/17/17 at 19:30; Stop 04/17/17 at 19:31; Status DC Morphine Sulfate 5 mg 1X ONCE IV Last administered on 04/17/17 19:46; Start at 19:30; Stop 04/17/17 at 19:31; Status DC Sodium Chloride 1,000 ml @ 1,000 mls/hr 1X ONCE IV Last administered on 19:35; Start 04/17/17 at 19:30; Stop 04/17/17 at 20:29; Status DC Insulin Human Regular 150 unit/ Sodium Chloride 151.5 ml @ 0 mls/hr CONT PRN PRN IV PER PROTOCOL Last administered on 04/17/17 20:43; Start 04/17/17 at 20:15 Potassium Chloride 100 ml @ 100 mls/hr PRN Q1HR PRN IV SEE COMMENTS; Start 04/17/17 at 20:15; Stop 04/18/17 at 05:19; Status DC Potassium Chloride 100 ml @ 100 mls/hr PRN Q1HR PRN IV SEE COMMENTS; Start 04/17/17 at 20:15; Stop 04/18/17 at 05:19; Status DC Potassium Chloride 100 ml @ 100 mls/hr PRN Q1HR PRN IV SEE COMMENTS; Start 04/17/17 at 20:15; Stop 04/18/17 at 05:19; Status DC Insulin Human Regular 150 ml @ As Directed STK-MED ONCE IV ; Start 04/17/17 at 20:32; Stop 04/17/17 at 20:33; Status DC Sodium Chloride 1,000 ml @ 1,000 mls/hr 1X ONCE IV Last administered on 20:47; Start 04/17/17 at 21:00; Stop 04/17/17 at 21:59; Status DC Ondansetron HCl (Zofran) 4 mg PRN Q8HRS PRN IV NAUSEA/VOMITING; Start 04/17/17 at 21:15; Stop 04/18/17 at 21:14 Morphine Sulfate 4 mg PRN Q2HR PRN IV SEVERE PAIN Last administered on 04:31; Start 04/17/17 at 21:15; Stop 04/18/17 at 21:14 Sodium Chloride 1,000 ml @ 150 mls/hr 1X ONCE IV ; Start 04/17/17 at 21:30; Stop 04/18/17 at 04:09; Status DC Sodium Chloride 1,000 ml @ 250 mls/hr Q4H IV Last administered on 04/17/17 22: 28; Start 04/17/17 at 23:00; Stop 04/18/17 at 00:04; Status DC Insulin Aspart (NovoLOG) 0-9 UNITS TIDWMEALS SQ ; Start 04/18/17 at 08:00 Dextrose (Dextrose 50%-Water Syringe) 12.5 gm PRN Q15MIN PRN IV SEE COMMENTS; Start 04/18/17 at 00:00 Potassium Chloride 100 ml @ 100 mls/hr PRN Q1HR PRN IV SEE COMMENTS Last administered on 04/18/17 01:10; Start 04/18/17 at 00:00; Stop 04/18/17 at 05:19; Status DC Dextrose/Sodium Chloride 1,000 ml @ 250 mls/hr Q4H IV Last administered on 04/18 03:56; Start 04/18/17 at 00:05; Stop 04/18/17 at 05:19; Status DC Sodium Chloride 1,000 ml @ 125 mls/hr Q8H IV Last administered on 04/18/17 05: 26; Start 04/18/17 at 05:30 Active Scripts Active Lisinopril 20 Mg Tablet 20 Mg PO DAILY Doxycycline Hyclate 100 Mg Tablet 100 Mg PO BID Levemir Flextouch (Insulin Detemir) 100 Unit/1 Ml Insuln.pen 25 Unit SQ HS 30 Days Novolog (Insulin Aspart) 100 Unit/1 Ml Cartridge 10 Units SQ TIDAC 30 Days Reported Gabapentin 300 Mg Capsule 300 Mg PO TID Vitals/I & O Vital Sign - Last 24 Hours 04/17/17 04/17/17 04/17/17 04/17/17 19:18 19:29 19:43 19:46 Temp 98.9 98.9 98.9 98.9 Pulse 125 125 124 Resp 16 B/P (MAP) 143/99 (114) 143/99 (114) 117/58 (77) Pulse Ox 100 100 99 O2 Delivery Room Air Room Air Room Air Room Air 04/17/17 04/17/17 04/17/17 04/17/17 20:13 20:19 20:25 20:43 Pulse 126 128 126 124 Resp 18 19 16 B/P (MAP) 94/47 (63) 89/49 (62) 83/47 (59) 92/52 (65) Pulse Ox 98 96 99 98 O2 Delivery Room Air Room Air Room Air Room Air 04/17/17 04/17/17 04/17/17 04/17/17 21:03 21:23 22:15 22:30 Temp 98.2 98.2 Pulse 130 132 112 114 Resp 16 16 18 B/P (MAP) 97/53 (68) 101/53 (69) 117/66 (83) 121/77 (92) Pulse Ox 99 99 100 100 O2 Delivery Room Air Room Air Room Air Room Air 04/17/17 04/17/17 04/17/17 04/17/17 22:32 22:45 23:00 23:30 Pulse 124 126 122 Resp 22 16 20 20 B/P (MAP) 139/85 (103) 137/77 (97) 119/78 (92) Pulse Ox 100 100 100 100 O2 Delivery Room Air Room Air Room Air Room Air 04/17/17 04/18/17 04/18/17 04/18/17 23:59 00:00 01:00 02:00 Temp 98.4 98.4 Pulse 116 118 115 Resp 17 13 13 B/P (MAP) 103/54 (70) 97/54 (68) 105/54 (71) Pulse Ox 100 100 100 O2 Delivery Room Air Room Air Room Air Room Air 04/18/17 04/18/17 04/18/17 04/18/17 03:00 04:00 04:00 04:31 Temp 98.0 98.0 Pulse 111 112 Resp 12 14 14 B/P (MAP) 105/62 (76) 109/68 (82) Pulse Ox 100 100 100 O2 Delivery Room Air Room Air Room Air Room Air 04/18/17 04/18/17 04/18/17 04/18/17 05:00 05:01 06:00 07:00 Pulse 109 108 101 Resp 12 19 11 10 B/P (MAP) 90/57 (68) 94/50 (65) 103/59 (74) Pulse Ox 100 100 100 100 O2 Delivery Room Air Room Air Room Air Room Air Intake and Output 04/17/17 04/17/17 04/18/17 15:00 23:00 07:00 Intake Total 2000 ml 2432 ml Output Total 800 ml Balance 2000 ml 1632 ml GINA DE LA TORRE III DO Apr 18, 2017 08:15
[2017-04-18] MEDS: ONDANSETRON PF 4 MG/2 ML VIAL. IV PRN ×2 (09:12→17:21)
[2017-04-18] MEDS ORDERED: IV NORMAL SALINE 500ML BAG 500 ML IV ONE (10:30)
[2017-04-18] MEDS ORDERED: INSULIN DETEMIR 300 UNITS/3 ML INSULN.PEN. SQ ONE (11:45)
[2017-04-18 12:58] LABS: CALCIUM 8.4 mg/dL (8.5-10.1); CREATININE 0.9 mg/dL (0.6-1.0); GFR 94.7; POTASSIUM 4.6 mmol/L (3.5-5.1)
[2017-04-18] MEDS ORDERED: INSULIN ASPART 300 UNITS/3 ML INSULN.PEN SQ ONE (14:00)
[2017-04-18] MEDS: PROCHLORPERAZINE 10 MG/2 ML VIAL. IV PRN (19:48)
[2017-04-18] MEDS: INSULIN DETEMIR 300 UNITS/3 ML INSULN.PEN. SQ SCH (21:00)
[2017-04-19] MEDS: MORPHINE SULFATE 4 MG/ML DISP.SYRIN. IV PRN ×6 (02:49→20:37)
[2017-04-19] MEDS: IV NORMAL SALINE 1000ML BAG 1,000 ML IV SCH ×3 (02:50→20:36)
[2017-04-19 03:00] VITALS: BP 150/101
[2017-04-19 07:20] VITALS: BP 126/74
--- NOTE | 2017-04-19 07:32 | RAD ---
Abdominal ultrasound, 04/18/2017: History: Abdominal pain, nausea and vomiting The gallbladder is within normal limits in size. There is moderate thickening of its duong. No gallstones are seen. The common hepatic duct is of normal caliber. The visualized portions of the liver, pancreas and both kidneys are unremarkable. The abdominal aorta and inferior vena cava are unremarkable. IMPRESSION: 1. No sonographic evidence of cholelithiasis. 2. Moderate diffuse gallbladder wall thickening which can be due to a variety of causes including hypoproteinemia, liver disease, renal disease or cholecystitis.
[2017-04-19] MEDS: INSULIN ASPART 300 UNITS/3 ML INSULN.PEN SQ SCH ×3 (08:00→17:10)
[2017-04-19] MEDS ORDERED: INSULIN ASPART 300 UNITS/3 ML INSULN.PEN SQ ONE (08:30)
--- NOTE | 2017-04-19 09:38 | PDOC ---
PROGRESS NOTES Chief Complaint Chief Complaint CC: dka 1. DKA POA: now hypoglycemic. 2. DM type 1 3. Asthma 4. GERD 5. Leukocytosis: WBC 12.9 6. Hypomagnesia: 1.7 7. Chest pain/ abdominal pain Plan As patient complains of chest pain I ordered an EKG and 2 sets of troponins and cardiology has been consulted EKG is pending, I reviewed her old EKG which showed sinus tachycardia. I will hold her long-acting insulin and start her on sliding scale insulin as patient developed hypoglycemia last night. I will continue her diet as tolerated and start long-acting insulin once patient able to eat her regular meals Gastroenterology has been consulted and awaiting their response. Ultrasound reports discussed with patient Monitor electrolytes closely one-time IV Protonix continue IV hydration Prognosis guarded next. Total time spent 40 minutes. History of Present Illness History of Present Illness Patient seen on the floor discussed with the RN Patient developed hypoglycemia last night Complaints of chest pain which is located at located in the center of the chest reproducible, no radiation, for by 4 out of 10. Vitals Vitals Vital Signs Date Time Temp Pulse Resp B/P (MAP) Pulse Ox O2 Delivery O2 Flow Rate FiO2 04/19/17 08:22 Room Air 04/19/17 07:20 97.9 117 18 126/74 (91) 100 97.9 Physical Exam General: Alert, Oriented X3, Cooperative, moderate distress Heart: Regular rate, Normal S1, Normal S2, No murmurs, Other (tachycardia. ) Lungs: Clear, Other (no wheezes or crackles) Abdomen: Normal bowel sounds, Soft, Other (ttp and possible rebound tenderness in RUQ) Extremities: No clubbing, No cyanosis, No edema Skin: No rashes, No breakdown Labs LABS Laboratory Tests Test 04/18/17 11:32 04/18/17 12:35 04/18/17 13:21 04/18/17 16:36 Glucose (Fingerstick) 481 mg/dL (70-99) 312 mg/dL (70-99) 103 mg/dL (70-99) Sodium Level 141 mmol/L (136-145) Potassium Level 4.6 mmol/L (3.5-5.1) Chloride Level 107 mmol/L (98-107) Carbon Dioxide Level 15 mmol/L (21-32) Anion Gap 19 (6-14) Blood Urea Nitrogen 14 mg/dL (7-20) Creatinine 0.9 mg/dL (0.6-1.0) Estimated GFR (Cockcroft-Gault) 94.7 Glucose Level 469 mg/dL (70-99) Calcium Level 8.4 mg/dL (8.5-10.1) Test 04/18/17 20:42 04/18/17 21:24 04/18/17 21:43 04/18/17 22:55 Glucose (Fingerstick) 53 mg/dL (70-99) 57 mg/dL (70-99) 78 mg/dL (70-99) 90 mg/dL (70-99) Test 04/19/17 07:25 Glucose (Fingerstick) 382 mg/dL (70-99) Assessment and Plan Assessmemt and Plan Problems Medical Problems: (1) Atypical chest pain Status: Acute (2) DKA (diabetic ketoacidoses) Status: Acute (3) Tachycardia Status: Acute Problems: Comment Review of Relevant I have reviewed the following items cristela (where applicable) has been applied. Labs Laboratory Tests Test 04/17/17 18:32 04/17/17 19:04 04/17/17 19:23 04/17/17 19:32 Bedside Urine HCG, Qualitative Hcg negative (Negative) Urine Collection Type Unknown Urine Color Yellow Urine Clarity Cloudy Urine pH 5.5 Urine Specific [place] >=1.030 Urine Protein Negative mg/dL (NEG-TRACE) Urine Glucose (UA) >=1000 mg/dL (NEG) Urine Ketones (Stick) >=80 mg/dL (NEG) Urine Blood Negative (NEG) Urine Nitrite Negative (NEG) Urine Bilirubin Negative (NEG) Urine Urobilinogen Dipstick 0.2 mg/dL (0.2 mg/dL) Urine Leukocyte Esterase Negative (NEG) Urine RBC 0 /HPF (0-2) Urine WBC 1-4 /HPF (0-4) Urine Squamous Epithelial Cells Many /LPF Urine Bacteria Moderate /HPF (0-FEW) Urine Opiates Screen Neg (NEG) Urine Methadone Screen Neg (NEG) Urine Barbiturates Neg (NEG) Urine Phencyclidine Screen Neg (NEG) Urine Amphetamine/Methamphetamine Neg (NEG) Urine Benzodiazepines Screen Neg (NEG) Urine Cocaine Screen Neg (NEG) Urine Cannabinoids Screen Neg (NEG) Urine Ethyl Alcohol Neg (NEG) Glucose (Fingerstick) 525 mg/dL (70-99) White Blood Count 8.7 x10^3/uL (4.0-11.0) Red Blood Count 4.87 x10^6/uL (3.50-5.40) Hemoglobin 14.5 g/dL (12.0-15.5) Hematocrit 45.2 % (36.0-47.0) Mean Corpuscular Volume 93 fL (79-100) Mean Corpuscular Hemoglobin 30 pg (25-35) Mean Corpuscular Hemoglobin Concent 32 g/dL (31-37) Red Cell Distribution Width 13.3 % (11.5-14.5) Platelet Count 456 x10^3/uL (140-400) Neutrophils (%) (Auto) 65 % (31-73) Lymphocytes (%) (Auto) 28 % (24-48) Monocytes (%) (Auto) 6 % (0-9) Eosinophils (%) (Auto) 0 % (0-3) Basophils (%) (Auto) 1 % (0-3) Neutrophils # (Auto) 5.6 x10^3uL (1.8-7.7) Lymphocytes # (Auto) 2.4 x10^3/uL (1.0-4.8) Monocytes # (Auto) 0.5 x10^3/uL (0.0-1.1) Eosinophils # (Auto) 0.0 x10^3/uL (0.0-0.7) Basophils # (Auto) 0.1 x10^3/uL (0.0-0.2) Prothrombin Time 13.1 SEC (11.7-14.0) Prothromb Time International Ratio 1.1 (0.8-1.1) Sodium Level 138 mmol/L (136-145) Potassium Level 5.0 mmol/L (3.5-5.1) Chloride Level 96 mmol/L (98-107) Carbon Dioxide Level 16 mmol/L (21-32) Anion Gap 26 (6-14) Blood Urea Nitrogen 17 mg/dL (7-20) Creatinine 0.9 mg/dL (0.6-1.0) Estimated GFR (Cockcroft-Gault) 94.7 BUN/Creatinine Ratio 19 (6-20) Glucose Level 654 mg/dL (70-99) Lactic Acid Level 2.2 mmol/L (0.4-2.0) Calcium Level 10.0 mg/dL (8.5-10.1) Phosphorus Level 5.4 mg/dL (2.6-4.7) Magnesium Level 2.0 mg/dL (1.8-2.4) Total Bilirubin 1.5 mg/dL (0.2-1.0) Aspartate Amino Transf (AST/SGOT) 21 U/L (15-37) Alanine Aminotransferase (ALT/SGPT) 25 U/L (14-59) Alkaline Phosphatase 104 U/L (46-116) Creatine Kinase 44 U/L (26-192) Creatine Kinase MB (Mass) < 0.5 ng/mL (0.0-3.6) Creatine Kinase MB Relative Index % (0-4) Troponin I Quantitative < 0.017 ng/mL (0.000-0.055) CO-Jxe-C-Type Natriuretic Peptide 292 pg/mL (0-124) Total Protein 7.7 g/dL (6.4-8.2) Albumin 4.0 g/dL (3.4-5.0) Albumin/Globulin Ratio 1.1 (1.0-1.7) Lipase 52 U/L (73-393) Thyroid Stimulating Hormone (TSH) 0.378 uIU/mL (0.358-3.74) Serum Test, Qualitative Negative (NEG) Test 04/17/17 21:46 04/17/17 22:30 04/17/17 22:50 04/17/17 23:05 Glucose (Fingerstick) 503 mg/dL (70-99) 332 mg/dL (70-99) Nasal Screen MRSA (PCR) Negative (Negative) Sodium Level 142 mmol/L (136-145) Potassium Level 4.1 mmol/L (3.5-5.1) Chloride Level 109 mmol/L (98-107) Carbon Dioxide Level 11 mmol/L (21-32) Anion Gap 22 (6-14) Blood Urea Nitrogen 18 mg/dL (7-20) Creatinine 1.0 mg/dL (0.6-1.0) Estimated GFR (Cockcroft-Gault) 83.9 Glucose Level 302 mg/dL (70-99) Lactic Acid Level 2.9 mmol/L (0.4-2.0) Calcium Level 8.0 mg/dL (8.5-10.1) Phosphorus Level 3.1 mg/dL (2.6-4.7) Magnesium Level 1.9 mg/dL (1.8-2.4) Test 04/17/17 23:59 04/18/17 00:59 04/18/17 02:03 04/18/17 03:05 Glucose (Fingerstick) 161 mg/dL (70-99) 157 mg/dL (70-99) 161 mg/dL (70-99) 147 mg/dL (70-99) Test 04/18/17 04:03 04/18/17 04:14 04/18/17 05:24 04/18/17 06:28 White Blood Count 12.9 x10^3/uL (4.0-11.0) Red Blood Count 3.73 x10^6/uL (3.50-5.40) Hemoglobin 11.1 g/dL (12.0-15.5) Hematocrit 33.3 % (36.0-47.0) Mean Corpuscular Volume 89 fL (79-100) Mean Corpuscular Hemoglobin 30 pg (25-35) Mean Corpuscular Hemoglobin Concent 33 g/dL (31-37) Red Cell Distribution Width 12.7 % (11.5-14.5) Platelet Count 337 x10^3/uL (140-400) Neutrophils (%) (Auto) 64 % (31-73) Lymphocytes (%) (Auto) 27 % (24-48) Monocytes (%) (Auto) 8 % (0-9) Eosinophils (%) (Auto) 0 % (0-3) Basophils (%) (Auto) 1 % (0-3) Neutrophils # (Auto) 8.2 x10^3uL (1.8-7.7) Lymphocytes # (Auto) 3.5 x10^3/uL (1.0-4.8) Monocytes # (Auto) 1.0 x10^3/uL (0.0-1.1) Eosinophils # (Auto) 0.0 x10^3/uL (0.0-0.7) Basophils # (Auto) 0.1 x10^3/uL (0.0-0.2) Sodium Level 140 mmol/L (136-145) Potassium Level 3.8 mmol/L (3.5-5.1) Chloride Level 108 mmol/L (98-107) Carbon Dioxide Level 23 mmol/L (21-32) Anion Gap 9 (6-14) Blood Urea Nitrogen 12 mg/dL (7-20) Creatinine 0.7 mg/dL (0.6-1.0) Estimated GFR (Cockcroft-Gault) 126.6 BUN/Creatinine Ratio 17 (6-20) Glucose Level 131 mg/dL (70-99) Lactic Acid Level 1.5 mmol/L (0.4-2.0) Calcium Level 8.4 mg/dL (8.5-10.1) Phosphorus Level 3.6 mg/dL (2.6-4.7) Magnesium Level 1.7 mg/dL (1.8-2.4) Total Bilirubin 0.6 mg/dL (0.2-1.0) Aspartate Amino Transf (AST/SGOT) 19 U/L (15-37) Alanine Aminotransferase (ALT/SGPT) 21 U/L (14-59) Alkaline Phosphatase 67 U/L (46-116) Total Protein 5.3 g/dL (6.4-8.2) Albumin 2.6 g/dL (3.4-5.0) Albumin/Globulin Ratio 1.0 (1.0-1.7) Glucose (Fingerstick) 115 mg/dL (70-99) 148 mg/dL (70-99) 147 mg/dL (70-99) Test 04/18/17 07:36 04/18/17 11:32 04/18/17 12:35 04/18/17 13:21 Glucose (Fingerstick) 125 mg/dL (70-99) 481 mg/dL (70-99) 312 mg/dL (70-99) Sodium Level 141 mmol/L (136-145) Potassium Level 4.6 mmol/L (3.5-5.1) Chloride Level 107 mmol/L (98-107) Carbon Dioxide Level 15 mmol/L (21-32) Anion Gap 19 (6-14) Blood Urea Nitrogen 14 mg/dL (7-20) Creatinine 0.9 mg/dL (0.6-1.0) Estimated GFR (Cockcroft-Gault) 94.7 Glucose Level 469 mg/dL (70-99) Calcium Level 8.4 mg/dL (8.5-10.1) Test 04/18/17 16:36 04/18/17 20:42 04/18/17 21:24 04/18/17 21:43 Glucose (Fingerstick) 103 mg/dL (70-99) 53 mg/dL (70-99) 57 mg/dL (70-99) 78 mg/dL (70-99) Test 04/18/17 22:55 04/19/17 07:25 Glucose (Fingerstick) 90 mg/dL (70-99) 382 mg/dL (70-99) Laboratory Tests Test 04/18/17 11:32 04/18/17 12:35 04/18/17 13:21 04/18/17 16:36 Glucose (Fingerstick) 481 mg/dL (70-99) 312 mg/dL (70-99) 103 mg/dL (70-99) Sodium Level 141 mmol/L (136-145) Potassium Level 4.6 mmol/L (3.5-5.1) Chloride Level 107 mmol/L (98-107) Carbon Dioxide Level 15 mmol/L (21-32) Anion Gap 19 (6-14) Blood Urea Nitrogen 14 mg/dL (7-20) Creatinine 0.9 mg/dL (0.6-1.0) Estimated GFR (Cockcroft-Gault) 94.7 Glucose Level 469 mg/dL (70-99) Calcium Level 8.4 mg/dL (8.5-10.1) Test 04/18/17 20:42 04/18/17 21:24 04/18/17 21:43 04/18/17 22:55 Glucose (Fingerstick) 53 mg/dL (70-99) 57 mg/dL (70-99) 78 mg/dL (70-99) 90 mg/dL (70-99) Test 04/19/17 07:25 Glucose (Fingerstick) 382 mg/dL (70-99) Microbiology 04/17/17 Urine Culture - Preliminary, Resulted 04/17/17 Urine Culture Result 1 (CEE) - Preliminary, Resulted Medications Current Medications Sodium Chloride 1,000 ml @ 100 mls/hr Q10H IV ; Start 04/17/17 at 19:22; Stop at 05:19; Status DC Ondansetron HCl (Zofran) 8 mg 1X ONCE IV Last administered on 04/17/17 19:43; Start 04/17/17 at 19:30; Stop 04/17/17 at 19:31; Status DC Aspirin (Ralph Aspirin) 325 mg 1X ONCE PO Last administered on 04/17/17 19:45 ; Start 04/17/17 at 19:30; Stop 04/17/17 at 19:31; Status DC Morphine Sulfate 5 mg 1X ONCE IV Last administered on 04/17/17 19:46; Start at 19:30; Stop 04/17/17 at 19:31; Status DC Sodium Chloride 1,000 ml @ 1,000 mls/hr 1X ONCE IV Last administered on 19:35; Start 04/17/17 at 19:30; Stop 04/17/17 at 20:29; Status DC Insulin Human Regular 150 unit/ Sodium Chloride 151.5 ml @ 0 mls/hr CONT PRN PRN IV PER PROTOCOL Last administered on 04/17/17 20:43; Start 04/17/17 at 20:15 Potassium Chloride 100 ml @ 100 mls/hr PRN Q1HR PRN IV SEE COMMENTS; Start 04/17/17 at 20:15; Stop 04/18/17 at 05:19; Status DC Potassium Chloride 100 ml @ 100 mls/hr PRN Q1HR PRN IV SEE COMMENTS; Start 04/17/17 at 20:15; Stop 04/18/17 at 05:19; Status DC Potassium Chloride 100 ml @ 100 mls/hr PRN Q1HR PRN IV SEE COMMENTS; Start 04/17/17 at 20:15; Stop 04/18/17 at 05:19; Status DC Insulin Human Regular 150 ml @ As Directed STK-MED ONCE IV ; Start 04/17/17 at 20:32; Stop 04/17/17 at 20:33; Status DC Sodium Chloride 1,000 ml @ 1,000 mls/hr 1X ONCE IV Last administered on 20:47; Start 04/17/17 at 21:00; Stop 04/17/17 at 21:59; Status DC Ondansetron HCl (Zofran) 4 mg PRN Q8HRS PRN IV NAUSEA/VOMITING Last administered on 04/18/17 17:21; Start 04/17/17 at 21:15; Stop 04/18/17 at 21:14; Status DC Morphine Sulfate 4 mg PRN Q2HR PRN IV SEVERE PAIN Last administered on 18:46; Start 04/17/17 at 21:15; Stop 04/18/17 at 21:14; Status DC Sodium Chloride 1,000 ml @ 150 mls/hr 1X ONCE IV ; Start 04/17/17 at 21:30; Stop 04/18/17 at 04:09; Status DC Sodium Chloride 1,000 ml @ 250 mls/hr Q4H IV Last administered on 04/17/17 22: 28; Start 04/17/17 at 23:00; Stop 04/18/17 at 00:04; Status DC Insulin Aspart (NovoLOG) 0-9 UNITS TIDWMEALS SQ Last administered on 04/18/17 11:46; Start 04/18/17 at 08:00 Dextrose (Dextrose 50%-Water Syringe) 12.5 gm PRN Q15MIN PRN IV SEE COMMENTS Last administered on 04/18/17 21:16; Start 04/18/17 at 00:00 Potassium Chloride 100 ml @ 100 mls/hr PRN Q1HR PRN IV SEE COMMENTS Last administered on 04/18/17 01:10; Start 04/18/17 at 00:00; Stop 04/18/17 at 05:19; Status DC Dextrose/Sodium Chloride 1,000 ml @ 250 mls/hr Q4H IV Last administered on 04/18 03:56; Start 04/18/17 at 00:05; Stop 04/18/17 at 05:19; Status DC Sodium Chloride 1,000 ml @ 125 mls/hr Q8H IV Last administered on 04/19/17 02: 50; Start 04/18/17 at 05:30 Sodium Chloride 500 ml @ 500 mls/hr 1X ONCE IV Last administered on 04/18/17 10:30; Start 04/18/17 at 10:30; Stop 04/18/17 at 11:29; Status DC Insulin Detemir (Levemir) 10 units 1X ONCE SQ Last administered on 04/18/17 12 :42; Start 04/18/17 at 11:45; Stop 04/18/17 at 11:46; Status DC Prochlorperazine Edisylate (Compazine) 10 mg PRN Q8HRS PRN IV NAUSEA/VOMITING Last administered on 04/18/17 19:48; Start 04/18/17 at 12:15 Insulin Detemir (Levemir) 25 units HS SQ ; Start 04/18/17 at 21:00 Insulin Aspart (NovoLOG) 10 units 1X ONCE SQ Last administered on 04/18/17 14: 00; Start 04/18/17 at 14:00; Stop 04/18/17 at 14:01; Status DC Morphine Sulfate 4 mg PRN Q2HR PRN IV SEVERE PAIN Last administered on 08:07; Start 04/18/17 at 21:45 Insulin Aspart (NovoLOG) 10 units 1X ONCE SQ Last administered on 04/19/17 08: 22; Start 04/19/17 at 08:30; Stop 04/19/17 at 08:31; Status DC Active Scripts Active Lisinopril 20 Mg Tablet 20 Mg PO DAILY Doxycycline Hyclate 100 Mg Tablet 100 Mg PO BID Levemir Flextouch (Insulin Detemir) 100 Unit/1 Ml Insuln.pen 25 Unit SQ HS 30 Days Novolog (Insulin Aspart) 100 Unit/1 Ml Cartridge 10 Units SQ TIDAC 30 Days Reported Gabapentin 300 Mg Capsule 300 Mg PO TID Vitals/I & O Vital Sign - Last 24 Hours 04/18/17 04/18/17 04/18/17 04/18/17 10:00 11:00 12:00 12:45 Temp 98.2 98.2 Pulse 114 116 116 Resp 12 12 16 14 B/P (MAP) 97/54 (68) 93/53 (66) 114/71 (85) Pulse Ox 100 100 100 98 O2 Delivery Room Air Room Air Room Air Room Air 04/18/17 04/18/17 04/18/17 04/18/17 13:15 16:18 18:46 19:00 Temp 98.0 98.0 98.0 98.0 Pulse 110 108 Resp 16 14 18 18 B/P (MAP) 140/99 (113) 108/64 (79) Pulse Ox 98 100 100 100 O2 Delivery Room Air Room Air Room Air Room Air 04/18/17 04/18/17 04/18/17 04/18/17 20:00 21:57 22:25 23:00 Temp 97.6 97.6 Pulse 103 Resp 16 16 18 B/P (MAP) 135/93 (107) Pulse Ox 98 O2 Delivery Room Air Room Air Room Air 04/19/17 04/19/17 04/19/17 04/19/17 02:49 03:00 07:20 08:00 Temp 98.3 97.9 98.3 97.9 Pulse 100 117 Resp 18 18 18 B/P (MAP) 150/101 (117) 126/74 (91) Pulse Ox 100 100 O2 Delivery Room Air Room Air Room Air Room Air 04/19/17 04/19/17 08:07 08:22 O2 Delivery Room Air Room Air Intake and Output 04/18/17 04/18/17 04/19/17 15:00 23:00 07:00 Intake Total 50 ml 0 ml 240 ml Output Total 350 ml 450 ml Balance -300 ml -450 ml 240 ml Nutrition Consultation Dietary Evaluation: Recommendations by RD: Protein supplementation Comments: boost glucose control tid Expected Outcomes/Goals: to meet > 75% est nutr needs Interpretation of weight loss: >1-2% in 1 week Malnutrition Findings: Food and Nutrition Intake (Sev: <50% est energy req 5days Weight Status: Appropriate MARKUS CHANG MD Apr 19, 2017 09:38
[2017-04-19] MEDS ORDERED: FAMOTIDINE 20 MG/2 ML VIAL IVP ONE (10:15)
[2017-04-19 10:47] VITALS: BP 145/109
--- NOTE | 2017-04-19 10:59 | PDOC2 ---
GI CONSULT Reason For Consult: Abd pain HPI: HPI: 21 y/o AA female evaluated in ER for n/v, abd pain, and diarrhea; admitted w/ DKA on 04/17/17, glucose as high as 654, last A1c in chart from 08/2016 >15. Hgb 14.5 to 11.1, lactic acid 2.2 (now WNL), bili 1.5. GI asked to see this morning re: abd pain. Abd US yesterday showed moderate diffuse gallbladder wall thickening. Note had some chest pain this morning w/ elevated troponin; EKG and cardiology consult requested. She is a bit drowsy but tells me no more n/v, just not hungry today. Was able to eat yesterday. Additionally, diarrhea has resolved. Abd pain persists; epigastric to RUQ, some periumbilical. H/o GERD, takes "a lot" of Tums. Rare use of NSAIDs. No previous EGD or colonoscopy. H/o pancreatitis at age 13 (says related to DM), has also had liver biopsy for elevated LFTs (says normal, note neg Hep panel in 2013). PMH: PMH: IDDM, diabetic neuropathy, asthma, GERD, pancreatitis, I&D labial abscess, liver biopsy FH: Family History: Other (DM) Social History: Smoke: No ALCOHOL: none Drugs: Marijuana (in the past) ROS: GEN: Denies fevers, chills, sweats HEENT: Denies blurred vision, sore throat CV: +chest pain RESP: Denies shortness of air, cough GI: Per HPI : Denies hematuria, dysuria ENDO: Denies weight changes NEURO: Denies confusion, dizziness MSK: +weakness SKIN: Denies jaundice, pruritus Vitals: Vitals: Vital Signs Date Time Temp Pulse Resp B/P (MAP) Pulse Ox O2 Delivery O2 Flow Rate FiO2 04/19/17 10:10 Room Air 04/19/17 07:20 97.9 117 18 126/74 (91) 100 97.9 Labs: Labs: Laboratory Tests Test 04/18/17 11:32 04/18/17 12:35 04/18/17 13:21 04/18/17 16:36 Glucose (Fingerstick) 481 mg/dL (70-99) 312 mg/dL (70-99) 103 mg/dL (70-99) Sodium Level 141 mmol/L (136-145) Potassium Level 4.6 mmol/L (3.5-5.1) Chloride Level 107 mmol/L (98-107) Carbon Dioxide Level 15 mmol/L (21-32) Anion Gap 19 (6-14) Blood Urea Nitrogen 14 mg/dL (7-20) Creatinine 0.9 mg/dL (0.6-1.0) Estimated GFR (Cockcroft-Gault) 94.7 Glucose Level 469 mg/dL (70-99) Calcium Level 8.4 mg/dL (8.5-10.1) Test 04/18/17 20:42 04/18/17 21:24 04/18/17 21:43 04/18/17 22:55 Glucose (Fingerstick) 53 mg/dL (70-99) 57 mg/dL (70-99) 78 mg/dL (70-99) 90 mg/dL (70-99) Test 04/19/17 07:25 04/19/17 08:50 Glucose (Fingerstick) 382 mg/dL (70-99) Troponin I Quantitative 0.103 ng/mL (0.000-0.055) Allergies: Coded Allergies: No Known Medication Allergies (Verified Allergy, Unknown, 12/31/16) Medications: Current Medications Medications (Trade) Dose Ordered Sig/Bakari Route PRN Reason Start Time Stop Time Status Last Admin Dose Admin Insulin Detemir (Levemir) 10 units 1X ONCE SQ 04/18/17 11:45 04/18/17 11:46 DC 04/18/17 12:42 Prochlorperazine Edisylate (Compazine) 10 mg PRN Q8HRS PRN IV NAUSEA/VOMITING 04/18/17 12:15 04/18/17 19:48 Insulin Aspart (NovoLOG) 10 units 1X ONCE SQ 04/18/17 14:00 04/18/17 14:01 DC 04/18/17 14:00 Morphine Sulfate 4 mg PRN Q2HR PRN IV SEVERE PAIN 04/18/17 21:45 04/19/17 10:10 Insulin Aspart (NovoLOG) 10 units 1X ONCE SQ 04/19/17 08:30 04/19/17 08:31 DC 04/19/17 08:22 Famotidine (Pepcid) 20 mg 1X ONCE IVP 04/19/17 10:15 04/19/17 10:16 DC 04/19/17 10:10 Imaging: Imaging: CXR 04/17/17 IMPRESSION: No acute cardiopulmonary abnormality is detected. Abd US 04/18/17 IMPRESSION: 1. No sonographic evidence of cholelithiasis. 2. Moderate diffuse gallbladder wall thickening which can be due to a variety of causes including hypoproteinemia, liver disease, renal disease or cholecystitis. PE: GEN: appears ill HEENT: Atraumatic, PERRL LUNGS: clear anteriorly HEART: tachycardic ABD: BS+, epigastric/periumbilical to RUQ EXTREMITY: No edema SKIN: No rashes, no jaundice NEURO/PSYCH: A & O 3, drowsy A/P: A/P: DKA, chest pain, elevated troponin -per primary/cardiology Upper abd pain GERD -takes Gaviscon frequently, no previous EGD N/v, diarrhea - resolved Elevated bilirubin, abnormal abd US -h/o pancreatitis as a teenager -no h/o liver biopsy (reportedly normal), neg Hep panel in 2014 -diffuse GB wall thickening CRC screen -average risk -- Await cardiology eval. Recheck LFTs, add PPI. Consider PIPIDA w/o EF, ?acalculous cholecystitis. Diabetic gastroparesis also suspected. MACKENZIE HOGAN Apr 19, 2017 10:59
[2017-04-19 11:24] LABS: ALBUMIN 2.7 g/dL (3.4-5.0); DIRECT BILIRUBIN 0.2 mg/dL (0.0-0.2); TOTAL BILIRUBIN 0.8 mg/dL (0.2-1.0); TOTAL PROTEIN 5.7 g/dL (6.4-8.2)
[2017-04-19] MEDS: PANTOPRAZOLE 40 MG TABLET.DR. PO SCH (12:11)
--- NOTE | 2017-04-19 12:12 | EKG ---
[facility] [address] [place] [address] Test Date: 2017-04-19 Test Time: 09:57:58 Pat Name: CARLITOS POWELL Department: Room: [facility] Gender: F Molder Fitting: : 1995 Requested By: MARKUS CHANG Order Number: [id number] Reading MD: Measurements Intervals [place] Rate: 105 P: 42 [place]: 124 QRS: 75 QRSD: 72 T: 36 QT: 324 QTc: 432 Interpretive Statements SINUS TACHYCARDIA NO SPECIFIC ECG ABNORMALITIES RI6.01 No previous ECG available for comparison
--- NOTE | 2017-04-19 12:45 | PDOC2 ---
MAYA JULES FACE BOSS 04/19/17 1245: CARDIAC CONSULT DATE OF CONSULT Date of Consult DATE: 04/19/17 TIME: 12:43 REASON FOR CONSULT Reason for Consult: elevated trop, cp HISTORY OF PRESENT ILLNESS HISTORY OF PRESENT ILLNESS Ms Dawson is a 21 year old female with history of diabetes mellitus type 1. Presents with complaints of chest pain, nausea and vomiting and chills over the last couple days. She describes pain as sharp and pressure, worse with exertion , movement and supine positioning. Pain has been constant and non radiating. She says after a couple days her blood sugars started to increase and she was unable to control them so she presented for eval. She was noted to have an abnormal troponin so consult was called. She is currently reporting continued pain, improved but not resolved with laying in lateral position. she denies dyspnea. Nausea and vomiting have resolved. She denies prior problems with chest discomfort or any cardiac history. She reports compliance with her diabetes medications recently but reports only obtaining insurance recently to allow her to do this. PAST MEDICAL HISTORY Past Medical History diabetes mellitus type 1 elevated liver enzymes with subsequent liver biopsy, reportedly normal PAST SURGICAL HISTORY Past Surgical History liver biopsy FAMILY HISTORY Family History no history of premature coronary disease SOCIAL HISTORY Social History no tobacco, last use of marijuana 2 months ago, no significant ETOH CURRENT MEDICATIONS CURRENT MEDICATIONS Current Medications Medications (Trade) Dose Ordered Sig/Bakari Route PRN Reason Start Time Stop Time Status Last Admin Dose Admin Insulin Aspart (NovoLOG) 10 units 1X ONCE SQ 04/18/17 14:00 04/18/17 14:01 DC 04/18/17 14:00 Morphine Sulfate 4 mg PRN Q2HR PRN IV SEVERE PAIN 04/18/17 21:45 04/19/17 12:23 Insulin Aspart (NovoLOG) 10 units 1X ONCE SQ 04/19/17 08:30 04/19/17 08:31 DC 04/19/17 08:22 Famotidine (Pepcid) 20 mg 1X ONCE IVP 04/19/17 10:15 04/19/17 10:16 DC 04/19/17 10:10 Pantoprazole Sodium (Protonix) 40 mg DAILYAC PO 04/19/17 11:30 04/19/17 12:11 ALLERGIES ALLERGIES: Coded Allergies: No Known Medication Allergies (Verified Allergy, Unknown, 12/31/16) ROS Review of System as per HPI with addition of : edema after IVF, fatigue generalized malaise PHYSICAL EXAM General: Alert, Oriented X3, Cooperative, mild distress HEENT: Atraumatic, EOMI Lungs: Clear to auscultation, Normal air movement Heart: Regular rate, Normal S1, Normal S2, Other (no significant murmurs, no gallops, clicks or rubs, + chest wall tenderness left and right of sternum) Abdomen: Normal bowel sounds, Soft Extremities: No cyanosis, Normal pulses, Other (1+ pedal edema) Neuro: Normal speech, Strength at 5/5 X4 ext Psych/Mental Status: Mental status NL, Mood NL VITALS VITALS Vital Signs Date Time Temp Pulse Resp B/P (MAP) Pulse Ox O2 Delivery O2 Flow Rate FiO2 04/19/17 12:23 Room Air 04/19/17 10:47 97.7 117 18 145/109 (121) 100 97.7 LABS Lab: Laboratory Tests Test 04/18/17 13:21 04/18/17 16:36 04/18/17 20:42 04/18/17 21:24 Glucose (Fingerstick) 312 mg/dL (70-99) 103 mg/dL (70-99) 53 mg/dL (70-99) 57 mg/dL (70-99) Test 04/18/17 21:43 04/18/17 22:55 04/19/17 07:25 04/19/17 08:50 Glucose (Fingerstick) 78 mg/dL (70-99) 90 mg/dL (70-99) 382 mg/dL (70-99) Total Bilirubin 0.8 mg/dL (0.2-1.0) Direct Bilirubin 0.2 mg/dL (0.0-0.2) Aspartate Amino Transf (AST/SGOT) 94 U/L (15-37) Alanine Aminotransferase (ALT/SGPT) 52 U/L (14-59) Alkaline Phosphatase 84 U/L (46-116) Troponin I Quantitative 0.103 ng/mL (0.000-0.055) Total Protein 5.7 g/dL (6.4-8.2) Albumin 2.7 g/dL (3.4-5.0) Test 04/19/17 11:51 Glucose (Fingerstick) 194 mg/dL (70-99) IMAGES IMAGES CXR - IMPRESSION: No acute cardiopulmonary abnormality is detected. abd US IMPRESSION: 1. No sonographic evidence of cholelithiasis. 2. Moderate diffuse gallbladder wall thickening which can be due to a variety of causes including hypoproteinemia, liver disease, renal disease or cholecystitis. EKG EKG sinus rhythm, right axis, poss LWMI age undetermined. non specific abnormalities. no acute ischemic changes. ASSESSMENT/PLAN ASSESSMENT/PLAN 1. Chest pain, atypical 2. elevated troponin 3. 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 Elevated trop likely secondary to DKA. Will check echocardiogram for LV function and wall motion. Continue supportive care. Problems: DEEDEE MASSEY MD 04/19/17 1802: CARDIAC CONSULT ALLERGIES ALLERGIES: Coded Allergies: No Known Medication Allergies (Verified Allergy, Unknown, 12/31/16) ASSESSMENT/PLAN ASSESSMENT/PLAN Patient seen and examined. Agree with WARDROBE TECHNICIAN's assessment and plan Chest pain with very atypical features and most probably musculoskeletal. 2-D echo showed normal LV function without any wall motion abnormalities. Doubt ACS. Continue current treatment for diabetic ketoacidosis per primary team. Thank you for your consultation. Problems: MAYA JULES APRN Apr 19, 2017 12:45 DEEDEE MASSEY MD Apr 19, 2017 18:02
[2017-04-19 14:55] VITALS: BP 138/99
--- NOTE | 2017-04-19 15:53 | CARD ---
APPROVED REPORT EXAM: Two-dimensional and M-mode echocardiogram with Doppler and color Doppler. INDICATION Elevated Troponin 2D DIMENSIONS RVDd2.9 (2.9-3.5cm)Left Atrium(2D)2.6 (1.6-4.0cm) IVSd0.9 (0.7-1.1cm)Aortic Root(2D)2.2 (2.0-3.7cm) LVDd3.3 (3.9-5.9cm)LVOT Diameter1.9 (1.8-2.4cm) PWd0.9 (0.7-1.1cm)LVDs1.6 (2.5-4.0cm) FS (%) 30.0 %SV36.1 ml LVEF(%)60.0 (>50%) Aortic Valve AoV Peak [place].127.7cm/sAoV VTI21.8cm AO Peak GR.6.5mmHgLVOT Peak [place].119.5cm/s LVOT VTI 22.16cmAO Mean GR.3mmHg ELVIE (VMAX)2.44hd2LQJ (VTI)2.98cm2 Mitral Valve MV E Boblqmwz04.8cm/sMV DECEL HSRX275ds MV A Absqjgkw44.0cm/sMV DMH70qe E/A Ratio1.5MVA (PHT)4.04cm2 TDI E/Lateral E'6.6E/Medial E'10.4 Tricuspid Valve TR P. Leggdkuq561dq/sRAP BXAPGDBK3cxAh TR Peak Gr.10rkRlKBAD12ljJl Pulmonary Vein S1 Wldqprri80.0cm/sD2 Fbkdasch46.7cm/s LEFT VENTRICLE The left ventricle is normal size. There is normal left ventricular wall thickness. The left ventricu lar systolic function is normal and the ejection fraction is within normal range. The Ejection Fracti on is 60-65%. There is normal LV segmental wall motion. The left ventricular diastolic function and f illing is normal for age. RIGHT VENTRICLE The right ventricle is normal size. The right ventricular systolic function is normal. ATRIA The left atrium size is normal. The right atrium size is normal. The interatrial septum is intact wit h no evidence for an atrial septal defect or patent foramen ovale as noted on 2-D or Doppler imaging. AORTIC VALVE The aortic valve is normal in structure and function. Doppler and Color Flow revealed no significant aortic regurgitation. There is no significant aortic valvular stenosis. MITRAL VALVE The mitral valve is normal in structure and function. There is no evidence of mitral valve prolapse. There is no mitral valve stenosis. Doppler and Color-flow revealed trace mitral regurgitation. TRICUSPID VALVE The tricuspid valve is normal in structure and function. Doppler and Color Flow revealed trace tricus pid regurgitation. The PA pressure was estimated at 17 mmHg. There is no tricuspid valve stenosis. PULMONIC VALVE Doppler and Color Flow revealed no pulmonic valvular regurgitation. There is no pulmonic valvular farzaneh nosis. GREAT VESSELS The aortic root is normal in size. The ascending aorta is normal in size. The IVC is normal in size a nd collapses >50% with inspiration. PERICARDIAL EFFUSION There is no evidence of significant pericardial effusion. Critical Notification Critical Value: No <Conclusion> The left ventricular systolic function is normal and the ejection fraction is within normal range. Th e Ejection Fraction is 60-65%. There is normal LV segmental wall motion.
[2017-04-19 19:00] VITALS: BP 132/91
[2017-04-19] MEDS: INSULIN DETEMIR 300 UNITS/3 ML INSULN.PEN. SQ SCH (20:42)
[2017-04-19 23:00] VITALS: BP 132/84
[2017-04-20] MEDS: MORPHINE SULFATE 4 MG/ML DISP.SYRIN. IV PRN ×4 (00:20→20:57)
[2017-04-20] MEDS: diphenhydrAMINE HCL 25 MG CAPSULE PO PRN ×3 (01:54→20:57)
[2017-04-20 03:00] VITALS: BP 153/115
[2017-04-20] MEDS: IV NORMAL SALINE 1000ML BAG 1,000 ML IV SCH ×3 (05:08→22:35)
[2017-04-20 07:16] VITALS: BP 141/90
[2017-04-20] MEDS: PANTOPRAZOLE 40 MG TABLET.DR. PO SCH (07:26)
[2017-04-20] MEDS: INSULIN ASPART 300 UNITS/3 ML INSULN.PEN SQ SCH ×3 (08:00→17:32)
--- NOTE | 2017-04-20 08:50 | PDOC ---
PROGRESS NOTES Chief Complaint Chief Complaint CC: dka 1. DKA POA: now hypoglycemic/ hyperglycemic. 2. DM type 1 3. Asthma 4. GERD 5. Leukocytosis: WBC 12.9 6. Hypomagnesia: 1.7 7. Chest pain resoled. 8. abdominal pain Plan Patient continued to have hypoglycemia and hyperglycemia however his dietary intake is normal. Continue to check her blood sugars closely. Her mild elevation of troponin is slightly due to DKA, cardiology note reviewed. recommend no further work up. She continued to help abdominal pain gastroenterology recommending HIDA scan. Labs reviewed case discussed with History of Present Illness History of Present Illness no acute events. Vitals Vitals Vital Signs Date Time Temp Pulse Resp B/P (MAP) Pulse Ox O2 Delivery O2 Flow Rate FiO2 04/20/17 08:00 98 Room Air 04/20/17 07:16 97.7 97 19 141/90 (107) 97.7 Physical Exam General: Alert, Oriented X3, Cooperative, mild distress Heart: Regular rate, Normal S1, Normal S2, Other (no significant murmurs, no gallops, clicks or rubs, + chest wall tenderness left and right of sternum) Lungs: Clear, Other (no wheezes or crackles) Abdomen: Normal bowel sounds, Soft Extremities: No cyanosis, Normal pulses, Other Skin: No rashes, No breakdown Labs LABS Laboratory Tests Test 04/19/17 08:50 04/19/17 11:51 04/19/17 14:40 04/19/17 16:57 Total Bilirubin 0.8 mg/dL (0.2-1.0) Direct Bilirubin 0.2 mg/dL (0.0-0.2) Aspartate Amino Transf (AST/SGOT) 94 U/L (15-37) Alanine Aminotransferase (ALT/SGPT) 52 U/L (14-59) Alkaline Phosphatase 84 U/L (46-116) Troponin I Quantitative 0.103 ng/mL (0.000-0.055) 0.112 ng/mL (0.000-0.055) Total Protein 5.7 g/dL (6.4-8.2) Albumin 2.7 g/dL (3.4-5.0) Glucose (Fingerstick) 194 mg/dL (70-99) 302 mg/dL (70-99) Test 04/19/17 20:38 04/19/17 21:30 04/20/17 07:38 04/20/17 08:23 Glucose (Fingerstick) 149 mg/dL (70-99) 44 mg/dL (70-99) 74 mg/dL (70-99) Troponin I Quantitative 0.122 ng/mL (0.000-0.055) Assessment and Plan Assessmemt and Plan Problems Medical Problems: (1) Atypical chest pain Status: Acute (2) DKA (diabetic ketoacidoses) Status: Acute (3) Tachycardia Status: Acute Problems: Comment Review of Relevant I have reviewed the following items cristela (where applicable) has been applied. Labs Laboratory Tests Test 04/18/17 11:32 04/18/17 12:35 04/18/17 13:21 04/18/17 16:36 Glucose (Fingerstick) 481 mg/dL (70-99) 312 mg/dL (70-99) 103 mg/dL (70-99) Sodium Level 141 mmol/L (136-145) Potassium Level 4.6 mmol/L (3.5-5.1) Chloride Level 107 mmol/L (98-107) Carbon Dioxide Level 15 mmol/L (21-32) Anion Gap 19 (6-14) Blood Urea Nitrogen 14 mg/dL (7-20) Creatinine 0.9 mg/dL (0.6-1.0) Estimated GFR (Cockcroft-Gault) 94.7 Glucose Level 469 mg/dL (70-99) Calcium Level 8.4 mg/dL (8.5-10.1) Test 04/18/17 20:42 04/18/17 21:24 04/18/17 21:43 04/18/17 22:55 Glucose (Fingerstick) 53 mg/dL (70-99) 57 mg/dL (70-99) 78 mg/dL (70-99) 90 mg/dL (70-99) Test 04/19/17 07:25 04/19/17 08:50 04/19/17 11:51 04/19/17 14:40 Glucose (Fingerstick) 382 mg/dL (70-99) 194 mg/dL (70-99) Total Bilirubin 0.8 mg/dL (0.2-1.0) Direct Bilirubin 0.2 mg/dL (0.0-0.2) Aspartate Amino Transf (AST/SGOT) 94 U/L (15-37) Alanine Aminotransferase (ALT/SGPT) 52 U/L (14-59) Alkaline Phosphatase 84 U/L (46-116) Troponin I Quantitative 0.103 ng/mL (0.000-0.055) 0.112 ng/mL (0.000-0.055) Total Protein 5.7 g/dL (6.4-8.2) Albumin 2.7 g/dL (3.4-5.0) Test 04/19/17 16:57 04/19/17 20:38 04/19/17 21:30 04/20/17 07:38 Glucose (Fingerstick) 302 mg/dL (70-99) 149 mg/dL (70-99) 44 mg/dL (70-99) Troponin I Quantitative 0.122 ng/mL (0.000-0.055) Test 04/20/17 08:23 Glucose (Fingerstick) 74 mg/dL (70-99) Laboratory Tests Test 04/19/17 08:50 04/19/17 11:51 04/19/17 14:40 04/19/17 16:57 Total Bilirubin 0.8 mg/dL (0.2-1.0) Direct Bilirubin 0.2 mg/dL (0.0-0.2) Aspartate Amino Transf (AST/SGOT) 94 U/L (15-37) Alanine Aminotransferase (ALT/SGPT) 52 U/L (14-59) Alkaline Phosphatase 84 U/L (46-116) Troponin I Quantitative 0.103 ng/mL (0.000-0.055) 0.112 ng/mL (0.000-0.055) Total Protein 5.7 g/dL (6.4-8.2) Albumin 2.7 g/dL (3.4-5.0) Glucose (Fingerstick) 194 mg/dL (70-99) 302 mg/dL (70-99) Test 04/19/17 20:38 04/19/17 21:30 04/20/17 07:38 04/20/17 08:23 Glucose (Fingerstick) 149 mg/dL (70-99) 44 mg/dL (70-99) 74 mg/dL (70-99) Troponin I Quantitative 0.122 ng/mL (0.000-0.055) Microbiology 04/17/17 Urine Culture - Final, Complete 04/17/17 Urine Culture Result 1 (CEE) - Final, Complete Medications Current Medications Sodium Chloride 1,000 ml @ 100 mls/hr Q10H IV ; Start 04/17/17 at 19:22; Stop at 05:19; Status DC Ondansetron HCl (Zofran) 8 mg 1X ONCE IV Last administered on 04/17/17 19:43; Start 04/17/17 at 19:30; Stop 04/17/17 at 19:31; Status DC Aspirin (Ralph Aspirin) 325 mg 1X ONCE PO Last administered on 04/17/17 19:45 ; Start 04/17/17 at 19:30; Stop 04/17/17 at 19:31; Status DC Morphine Sulfate 5 mg 1X ONCE IV Last administered on 04/17/17 19:46; Start at 19:30; Stop 04/17/17 at 19:31; Status DC Sodium Chloride 1,000 ml @ 1,000 mls/hr 1X ONCE IV Last administered on 19:35; Start 04/17/17 at 19:30; Stop 04/17/17 at 20:29; Status DC Insulin Human Regular 150 unit/ Sodium Chloride 151.5 ml @ 0 mls/hr CONT PRN PRN IV PER PROTOCOL Last administered on 04/17/17 20:43; Start 04/17/17 at 20:15 Potassium Chloride 100 ml @ 100 mls/hr PRN Q1HR PRN IV SEE COMMENTS; Start 04/17/17 at 20:15; Stop 04/18/17 at 05:19; Status DC Potassium Chloride 100 ml @ 100 mls/hr PRN Q1HR PRN IV SEE COMMENTS; Start 04/17/17 at 20:15; Stop 04/18/17 at 05:19; Status DC Potassium Chloride 100 ml @ 100 mls/hr PRN Q1HR PRN IV SEE COMMENTS; Start 04/17/17 at 20:15; Stop 04/18/17 at 05:19; Status DC Insulin Human Regular 150 ml @ As Directed STK-MED ONCE IV ; Start 04/17/17 at 20:32; Stop 04/17/17 at 20:33; Status DC Sodium Chloride 1,000 ml @ 1,000 mls/hr 1X ONCE IV Last administered on 20:47; Start 04/17/17 at 21:00; Stop 04/17/17 at 21:59; Status DC Ondansetron HCl (Zofran) 4 mg PRN Q8HRS PRN IV NAUSEA/VOMITING Last administered on 04/18/17 17:21; Start 04/17/17 at 21:15; Stop 04/18/17 at 21:14; Status DC Morphine Sulfate 4 mg PRN Q2HR PRN IV SEVERE PAIN Last administered on 18:46; Start 04/17/17 at 21:15; Stop 04/18/17 at 21:14; Status DC Sodium Chloride 1,000 ml @ 150 mls/hr 1X ONCE IV ; Start 04/17/17 at 21:30; Stop 04/18/17 at 04:09; Status DC Sodium Chloride 1,000 ml @ 250 mls/hr Q4H IV Last administered on 04/17/17 22: 28; Start 04/17/17 at 23:00; Stop 04/18/17 at 00:04; Status DC Insulin Aspart (NovoLOG) 0-9 UNITS TIDWMEALS SQ Last administered on 04/19/17 17:10; Start 04/18/17 at 08:00 Dextrose (Dextrose 50%-Water Syringe) 12.5 gm PRN Q15MIN PRN IV SEE COMMENTS Last administered on 04/18/17 21:16; Start 04/18/17 at 00:00 Potassium Chloride 100 ml @ 100 mls/hr PRN Q1HR PRN IV SEE COMMENTS Last administered on 04/18/17 01:10; Start 04/18/17 at 00:00; Stop 04/18/17 at 05:19; Status DC Dextrose/Sodium Chloride 1,000 ml @ 250 mls/hr Q4H IV Last administered on 04/18 03:56; Start 04/18/17 at 00:05; Stop 04/18/17 at 05:19; Status DC Sodium Chloride 1,000 ml @ 125 mls/hr Q8H IV Last administered on 04/20/17 07: 29; Start 04/18/17 at 05:30 Sodium Chloride 500 ml @ 500 mls/hr 1X ONCE IV Last administered on 04/18/17 10:30; Start 04/18/17 at 10:30; Stop 04/18/17 at 11:29; Status DC Insulin Detemir (Levemir) 10 units 1X ONCE SQ Last administered on 04/18/17 12 :42; Start 04/18/17 at 11:45; Stop 04/18/17 at 11:46; Status DC Prochlorperazine Edisylate (Compazine) 10 mg PRN Q8HRS PRN IV NAUSEA/VOMITING Last administered on 04/18/17 19:48; Start 04/18/17 at 12:15 Insulin Detemir (Levemir) 25 units HS SQ Last administered on 04/19/17 20:42; Start 04/18/17 at 21:00 Insulin Aspart (NovoLOG) 10 units 1X ONCE SQ Last administered on 04/18/17 14: 00; Start 04/18/17 at 14:00; Stop 04/18/17 at 14:01; Status DC Morphine Sulfate 4 mg PRN Q2HR PRN IV SEVERE PAIN Last administered on 07:29; Start 04/18/17 at 21:45 Insulin Aspart (NovoLOG) 10 units 1X ONCE SQ Last administered on 04/19/17 08: 22; Start 04/19/17 at 08:30; Stop 04/19/17 at 08:31; Status DC Famotidine (Pepcid) 20 mg 1X ONCE IVP Last administered on 04/19/17 10:10; Start 04/19/17 at 10:15; Stop 04/19/17 at 10:16; Status DC Pantoprazole Sodium (Protonix) 40 mg DAILYAC PO Last administered on 04/20/17 07:26; Start 04/19/17 at 11:30 Diphenhydramine HCl (Benadryl) 25 mg PRN Q6HRS PRN PO ITCHING Last administered on 04/20/17 01:54; Start 04/20/17 at 02:00 Active Scripts Active Lisinopril 20 Mg Tablet 20 Mg PO DAILY Doxycycline Hyclate 100 Mg Tablet 100 Mg PO BID Levemir Flextouch (Insulin Detemir) 100 Unit/1 Ml Insuln.pen 25 Unit SQ HS 30 Days Novolog (Insulin Aspart) 100 Unit/1 Ml Cartridge 10 Units SQ TIDAC 30 Days Reported Gabapentin 300 Mg Capsule 300 Mg PO TID Vitals/I & O Vital Sign - Last 24 Hours 04/19/17 04/19/17 04/19/17 04/19/17 10:10 10:47 12:23 14:55 Temp 97.7 97.7 97.7 97.7 Pulse 117 95 Resp 18 18 B/P (MAP) 145/109 (121) 138/99 (112) Pulse Ox 100 100 O2 Delivery Room Air Room Air Room Air Room Air 04/19/17 04/19/17 04/19/17 04/19/17 17:05 19:00 20:00 20:37 Temp 98.4 98.4 Pulse 111 Resp 18 B/P (MAP) 132/91 (105) Pulse Ox 100 O2 Delivery Room Air Room Air Room Air Room Air 04/19/17 04/20/17 04/20/17 04/20/17 23:00 00:20 03:00 07:16 Temp 98.0 98.4 97.7 98.0 98.4 97.7 Pulse 112 101 97 Resp 18 18 19 B/P (MAP) 132/84 (100) 153/115 (128) 141/90 (107) Pulse Ox 99 98 95 O2 Delivery Room Air Room Air Room Air Room Air 04/20/17 04/20/17 07:29 08:00 Pulse Ox 98 98 O2 Delivery Room Air Room Air Intake and Output 04/19/17 04/19/17 04/20/17 15:00 23:00 07:00 Intake Total 1000 ml 100 ml Balance 1000 ml 100 ml Nutrition Consultation Dietary Evaluation: Recommendations by RD: Protein supplementation Comments: boost glucose control tid Expected Outcomes/Goals: to meet > 75% est nutr needs Interpretation of weight loss: >1-2% in 1 week Malnutrition Findings: Food and Nutrition Intake (Sev: <50% est energy req 5days Weight Status: Appropriate MARKUS CHANG MD Apr 20, 2017 08:50
--- NOTE | 2017-04-20 11:06 | PDOC ---
G I PROGRESS NOTE Reason for Follow-up abd pain/n/v Subjective nausea persists Physical Exam Lungs clear CV S1 S2 ABD +BS, soft, mild epigastric tenderness to palpation Review of Relevant I have reviewed the following items cristela (where applicable) has been applied. Labs Laboratory Tests Test 04/18/17 11:32 04/18/17 12:35 04/18/17 13:21 04/18/17 16:36 Glucose (Fingerstick) 481 mg/dL (70-99) 312 mg/dL (70-99) 103 mg/dL (70-99) Sodium Level 141 mmol/L (136-145) Potassium Level 4.6 mmol/L (3.5-5.1) Chloride Level 107 mmol/L (98-107) Carbon Dioxide Level 15 mmol/L (21-32) Anion Gap 19 (6-14) Blood Urea Nitrogen 14 mg/dL (7-20) Creatinine 0.9 mg/dL (0.6-1.0) Estimated GFR (Cockcroft-Gault) 94.7 Glucose Level 469 mg/dL (70-99) Calcium Level 8.4 mg/dL (8.5-10.1) Test 04/18/17 20:42 04/18/17 21:24 04/18/17 21:43 04/18/17 22:55 Glucose (Fingerstick) 53 mg/dL (70-99) 57 mg/dL (70-99) 78 mg/dL (70-99) 90 mg/dL (70-99) Test 04/19/17 07:25 04/19/17 08:50 04/19/17 11:51 04/19/17 14:40 Glucose (Fingerstick) 382 mg/dL (70-99) 194 mg/dL (70-99) Total Bilirubin 0.8 mg/dL (0.2-1.0) Direct Bilirubin 0.2 mg/dL (0.0-0.2) Aspartate Amino Transf (AST/SGOT) 94 U/L (15-37) Alanine Aminotransferase (ALT/SGPT) 52 U/L (14-59) Alkaline Phosphatase 84 U/L (46-116) Troponin I Quantitative 0.103 ng/mL (0.000-0.055) 0.112 ng/mL (0.000-0.055) Total Protein 5.7 g/dL (6.4-8.2) Albumin 2.7 g/dL (3.4-5.0) Test 04/19/17 16:57 04/19/17 20:38 04/19/17 21:30 04/20/17 07:38 Glucose (Fingerstick) 302 mg/dL (70-99) 149 mg/dL (70-99) 44 mg/dL (70-99) Troponin I Quantitative 0.122 ng/mL (0.000-0.055) Test 04/20/17 08:23 Glucose (Fingerstick) 74 mg/dL (70-99) Laboratory Tests Test 04/19/17 11:51 04/19/17 14:40 04/19/17 16:57 04/19/17 20:38 Glucose (Fingerstick) 194 mg/dL (70-99) 302 mg/dL (70-99) 149 mg/dL (70-99) Troponin I Quantitative 0.112 ng/mL (0.000-0.055) Test 04/19/17 21:30 04/20/17 07:38 04/20/17 08:23 Troponin I Quantitative 0.122 ng/mL (0.000-0.055) Glucose (Fingerstick) 44 mg/dL (70-99) 74 mg/dL (70-99) Microbiology 04/17/17 Urine Culture - Final, Complete 04/17/17 Urine Culture Result 1 (CEE) - Final, Complete Medications Current Medications Sodium Chloride 1,000 ml @ 100 mls/hr Q10H IV ; Start 04/17/17 at 19:22; Stop at 05:19; Status DC Ondansetron HCl (Zofran) 8 mg 1X ONCE IV Last administered on 04/17/17 19:43; Start 04/17/17 at 19:30; Stop 04/17/17 at 19:31; Status DC Aspirin (Ralph Aspirin) 325 mg 1X ONCE PO Last administered on 04/17/17 19:45 ; Start 04/17/17 at 19:30; Stop 04/17/17 at 19:31; Status DC Morphine Sulfate 5 mg 1X ONCE IV Last administered on 04/17/17 19:46; Start at 19:30; Stop 04/17/17 at 19:31; Status DC Sodium Chloride 1,000 ml @ 1,000 mls/hr 1X ONCE IV Last administered on 19:35; Start 04/17/17 at 19:30; Stop 04/17/17 at 20:29; Status DC Insulin Human Regular 150 unit/ Sodium Chloride 151.5 ml @ 0 mls/hr CONT PRN PRN IV PER PROTOCOL Last administered on 04/17/17 20:43; Start 04/17/17 at 20:15 Potassium Chloride 100 ml @ 100 mls/hr PRN Q1HR PRN IV SEE COMMENTS; Start 04/17/17 at 20:15; Stop 04/18/17 at 05:19; Status DC Potassium Chloride 100 ml @ 100 mls/hr PRN Q1HR PRN IV SEE COMMENTS; Start 04/17/17 at 20:15; Stop 04/18/17 at 05:19; Status DC Potassium Chloride 100 ml @ 100 mls/hr PRN Q1HR PRN IV SEE COMMENTS; Start 04/17/17 at 20:15; Stop 04/18/17 at 05:19; Status DC Insulin Human Regular 150 ml @ As Directed STK-MED ONCE IV ; Start 04/17/17 at 20:32; Stop 04/17/17 at 20:33; Status DC Sodium Chloride 1,000 ml @ 1,000 mls/hr 1X ONCE IV Last administered on 20:47; Start 04/17/17 at 21:00; Stop 04/17/17 at 21:59; Status DC Ondansetron HCl (Zofran) 4 mg PRN Q8HRS PRN IV NAUSEA/VOMITING Last administered on 04/18/17 17:21; Start 04/17/17 at 21:15; Stop 04/18/17 at 21:14; Status DC Morphine Sulfate 4 mg PRN Q2HR PRN IV SEVERE PAIN Last administered on 18:46; Start 04/17/17 at 21:15; Stop 04/18/17 at 21:14; Status DC Sodium Chloride 1,000 ml @ 150 mls/hr 1X ONCE IV ; Start 04/17/17 at 21:30; Stop 04/18/17 at 04:09; Status DC Sodium Chloride 1,000 ml @ 250 mls/hr Q4H IV Last administered on 04/17/17 22: 28; Start 04/17/17 at 23:00; Stop 04/18/17 at 00:04; Status DC Insulin Aspart (NovoLOG) 0-9 UNITS TIDWMEALS SQ Last administered on 04/19/17 17:10; Start 04/18/17 at 08:00 Dextrose (Dextrose 50%-Water Syringe) 12.5 gm PRN Q15MIN PRN IV SEE COMMENTS Last administered on 04/18/17 21:16; Start 04/18/17 at 00:00 Potassium Chloride 100 ml @ 100 mls/hr PRN Q1HR PRN IV SEE COMMENTS Last administered on 04/18/17 01:10; Start 04/18/17 at 00:00; Stop 04/18/17 at 05:19; Status DC Dextrose/Sodium Chloride 1,000 ml @ 250 mls/hr Q4H IV Last administered on 04/18 03:56; Start 04/18/17 at 00:05; Stop 04/18/17 at 05:19; Status DC Sodium Chloride 1,000 ml @ 125 mls/hr Q8H IV Last administered on 04/20/17 07: 29; Start 04/18/17 at 05:30 Sodium Chloride 500 ml @ 500 mls/hr 1X ONCE IV Last administered on 04/18/17 10:30; Start 04/18/17 at 10:30; Stop 04/18/17 at 11:29; Status DC Insulin Detemir (Levemir) 10 units 1X ONCE SQ Last administered on 04/18/17 12 :42; Start 04/18/17 at 11:45; Stop 04/18/17 at 11:46; Status DC Prochlorperazine Edisylate (Compazine) 10 mg PRN Q8HRS PRN IV NAUSEA/VOMITING Last administered on 04/18/17 19:48; Start 04/18/17 at 12:15 Insulin Detemir (Levemir) 25 units HS SQ Last administered on 04/19/17 20:42; Start 04/18/17 at 21:00 Insulin Aspart (NovoLOG) 10 units 1X ONCE SQ Last administered on 04/18/17 14: 00; Start 04/18/17 at 14:00; Stop 04/18/17 at 14:01; Status DC Morphine Sulfate 4 mg PRN Q2HR PRN IV SEVERE PAIN Last administered on 07:29; Start 04/18/17 at 21:45 Insulin Aspart (NovoLOG) 10 units 1X ONCE SQ Last administered on 04/19/17 08: 22; Start 04/19/17 at 08:30; Stop 04/19/17 at 08:31; Status DC Famotidine (Pepcid) 20 mg 1X ONCE IVP Last administered on 04/19/17 10:10; Start 04/19/17 at 10:15; Stop 04/19/17 at 10:16; Status DC Pantoprazole Sodium (Protonix) 40 mg DAILYAC PO Last administered on 04/20/17 07:26; Start 04/19/17 at 11:30 Diphenhydramine HCl (Benadryl) 25 mg PRN Q6HRS PRN PO ITCHING Last administered on 04/20/17 01:54; Start 04/20/17 at 02:00 Active Scripts Active Lisinopril 20 Mg Tablet 20 Mg PO DAILY Doxycycline Hyclate 100 Mg Tablet 100 Mg PO BID Levemir Flextouch (Insulin Detemir) 100 Unit/1 Ml Insuln.pen 25 Unit SQ HS 30 Days Novolog (Insulin Aspart) 100 Unit/1 Ml Cartridge 10 Units SQ TIDAC 30 Days Reported Gabapentin 300 Mg Capsule 300 Mg PO TID Vitals/I & O Vital Sign - Last 24 Hours 04/19/17 04/19/17 04/19/17 04/19/17 12:23 14:55 17:05 19:00 Temp 97.7 98.4 97.7 98.4 Pulse 95 111 Resp 18 18 B/P (MAP) 138/99 (112) 132/91 (105) Pulse Ox 100 100 O2 Delivery Room Air Room Air Room Air Room Air 04/19/17 04/19/17 04/19/17 04/20/17 20:00 20:37 23:00 00:20 Temp 98.0 98.0 Pulse 112 Resp 18 B/P (MAP) 132/84 (100) Pulse Ox 99 O2 Delivery Room Air Room Air Room Air Room Air 04/20/17 04/20/17 04/20/17 04/20/17 03:00 07:16 07:29 08:00 Temp 98.4 97.7 98.4 97.7 Pulse 101 97 Resp 18 19 B/P (MAP) 153/115 (128) 141/90 (107) Pulse Ox 98 95 98 98 O2 Delivery Room Air Room Air Room Air Room Air 04/20/17 08:00 O2 Delivery Room Air Intake and Output 04/19/17 04/19/17 04/20/17 15:00 23:00 07:00 Intake Total 1000 ml 100 ml Balance 1000 ml 100 ml Problem List Problems Medical Problems: (1) Atypical chest pain Status: Acute (2) DKA (diabetic ketoacidoses) Status: Acute (3) Tachycardia Status: Acute Assessment ABd pain- with n/v, gastroapresis contributing, if symptoms persist over weekend , then nithya vyas saturday to assess for chronic cholecystitis ISAAC GODWIN MD Apr 20, 2017 11:06
[2017-04-20 11:17] VITALS: BP 174/117
[2017-04-20] MEDS: HYDROcodone/APAP 5/325MG 1 TAB TABLET PO PRN ×3 (14:09→22:34)
[2017-04-20 15:08] VITALS: BP 159/115
[2017-04-20 19:45] VITALS: BP 170/126
[2017-04-20] MEDS: INSULIN DETEMIR 300 UNITS/3 ML INSULN.PEN. SQ SCH (21:00)
[2017-04-20 23:41] VITALS: BP 173/121
[2017-04-21 03:19] VITALS: BP 151/116
[2017-04-21] MEDS: IV NORMAL SALINE 1000ML BAG 1,000 ML IV SCH ×3 (05:30→21:30)
[2017-04-21 07:15] VITALS: BP 153/112
[2017-04-21] MEDS: PANTOPRAZOLE 40 MG TABLET.DR. PO SCH (07:42)
[2017-04-21] MEDS: HYDROcodone/APAP 5/325MG 1 TAB TABLET PO PRN ×4 (07:43→20:49)
[2017-04-21] MEDS: INSULIN ASPART 300 UNITS/3 ML INSULN.PEN SQ SCH ×3 (07:43→17:00)
[2017-04-21] MEDS: MORPHINE SULFATE 4 MG/ML DISP.SYRIN. IV PRN ×3 (10:42→18:14)
[2017-04-21] MEDS ORDERED: hydrALAZINE 20 MG/ML VIAL. IVP ONE (10:45)
[2017-04-21] MEDS ORDERED: FUROSEMIDE 20 MG/2 ML VIAL. IVP ONE (10:45)
[2017-04-21] MEDS: PROCHLORPERAZINE 10 MG/2 ML VIAL. IV PRN (10:50)
[2017-04-21 11:22] VITALS: BP 194/133
--- NOTE | 2017-04-21 12:42 | PDOC ---
G I PROGRESS NOTE Reason for Follow-up abd pain Subjective nausea persists Physical Exam lungs clear CV S1 S2 abd +bs, soft, RUG tenderness to palpation Review of Relevant I have reviewed the following items cristela (where applicable) has been applied. Labs Laboratory Tests Test 04/19/17 14:40 04/19/17 16:57 04/19/17 20:38 04/19/17 21:30 Troponin I Quantitative 0.112 ng/mL (0.000-0.055) 0.122 ng/mL (0.000-0.055) Glucose (Fingerstick) 302 mg/dL (70-99) 149 mg/dL (70-99) Test 04/20/17 07:38 04/20/17 08:23 04/20/17 11:29 04/20/17 16:43 Glucose (Fingerstick) 44 mg/dL (70-99) 74 mg/dL (70-99) 139 mg/dL (70-99) 297 mg/dL (70-99) Test 04/20/17 20:59 04/21/17 06:22 04/21/17 07:01 04/21/17 11:43 Glucose (Fingerstick) 317 mg/dL (70-99) 54 mg/dL (70-99) 148 mg/dL (70-99) 290 mg/dL (70-99) Laboratory Tests Test 04/20/17 16:43 04/20/17 20:59 04/21/17 06:22 04/21/17 07:01 Glucose (Fingerstick) 297 mg/dL (70-99) 317 mg/dL (70-99) 54 mg/dL (70-99) 148 mg/dL (70-99) Test 04/21/17 11:43 Glucose (Fingerstick) 290 mg/dL (70-99) Microbiology 04/17/17 Urine Culture - Final, Complete 04/17/17 Urine Culture Result 1 (CEE) - Final, Complete Medications Current Medications Sodium Chloride 1,000 ml @ 100 mls/hr Q10H IV ; Start 04/17/17 at 19:22; Stop at 05:19; Status DC Ondansetron HCl (Zofran) 8 mg 1X ONCE IV Last administered on 04/17/17t 19:43; Start 04/17/17 at 19:30; Stop 04/17/17 at 19:31; Status DC Aspirin (Ralph Aspirin) 325 mg 1X ONCE PO Last administered on 04/17/17 19:45 ; Start 04/17/17 at 19:30; Stop 04/17/17 at 19:31; Status DC Morphine Sulfate 5 mg 1X ONCE IV Last administered on 04/17/17 19:46; Start at 19:30; Stop 04/17/17 at 19:31; Status DC Sodium Chloride 1,000 ml @ 1,000 mls/hr 1X ONCE IV Last administered on 19:35; Start 04/17/17 at 19:30; Stop 04/17/17 at 20:29; Status DC Insulin Human Regular 150 unit/ Sodium Chloride 151.5 ml @ 0 mls/hr CONT PRN PRN IV PER PROTOCOL Last administered on 04/17/17 20:43; Start 04/17/17 at 20:15 Potassium Chloride 100 ml @ 100 mls/hr PRN Q1HR PRN IV SEE COMMENTS; Start 04/17/17 at 20:15; Stop 04/18/17 at 05:19; Status DC Potassium Chloride 100 ml @ 100 mls/hr PRN Q1HR PRN IV SEE COMMENTS; Start 04/17/17 at 20:15; Stop 04/18/17 at 05:19; Status DC Potassium Chloride 100 ml @ 100 mls/hr PRN Q1HR PRN IV SEE COMMENTS; Start 04/17/17 at 20:15; Stop 04/18/17 at 05:19; Status DC Insulin Human Regular 150 ml @ As Directed STK-MED ONCE IV ; Start 04/17/17 at 20:32; Stop 04/17/17 at 20:33; Status DC Sodium Chloride 1,000 ml @ 1,000 mls/hr 1X ONCE IV Last administered on 20:47; Start 04/17/17 at 21:00; Stop 04/17/17 at 21:59; Status DC Ondansetron HCl (Zofran) 4 mg PRN Q8HRS PRN IV NAUSEA/VOMITING Last administered on 04/18/17 17:21; Start 04/17/17 at 21:15; Stop 04/18/17 at 21:14; Status DC Morphine Sulfate 4 mg PRN Q2HR PRN IV SEVERE PAIN Last administered on 18:46; Start 04/17/17 at 21:15; Stop 04/18/17 at 21:14; Status DC Sodium Chloride 1,000 ml @ 150 mls/hr 1X ONCE IV ; Start 04/17/17 at 21:30; Stop 04/18/17 at 04:09; Status DC Sodium Chloride 1,000 ml @ 250 mls/hr Q4H IV Last administered on 04/17/17 22: 28; Start 04/17/17 at 23:00; Stop 04/18/17 at 00:04; Status DC Insulin Aspart (NovoLOG) 0-9 UNITS TIDWMEALS SQ Last administered on 04/21/17 12:24; Start 04/18/17 at 08:00 Dextrose (Dextrose 50%-Water Syringe) 12.5 gm PRN Q15MIN PRN IV SEE COMMENTS Last administered on 04/18/17 21:16; Start 04/18/17 at 00:00 Potassium Chloride 100 ml @ 100 mls/hr PRN Q1HR PRN IV SEE COMMENTS Last administered on 04/18/17 01:10; Start 04/18/17 at 00:00; Stop 04/18/17 at 05:19; Status DC Dextrose/Sodium Chloride 1,000 ml @ 250 mls/hr Q4H IV Last administered on 04/18 03:56; Start 04/18/17 at 00:05; Stop 04/18/17 at 05:19; Status DC Sodium Chloride 1,000 ml @ 125 mls/hr Q8H IV Last administered on 04/20/17 07: 29; Start 04/18/17 at 05:30 Sodium Chloride 500 ml @ 500 mls/hr 1X ONCE IV Last administered on 04/18/17 10:30; Start 04/18/17 at 10:30; Stop 04/18/17 at 11:29; Status DC Insulin Detemir (Levemir) 10 units 1X ONCE SQ Last administered on 04/18/17 12 :42; Start 04/18/17 at 11:45; Stop 04/18/17 at 11:46; Status DC Prochlorperazine Edisylate (Compazine) 10 mg PRN Q8HRS PRN IV NAUSEA/VOMITING Last administered on 04/21/17 10:50; Start 04/18/17 at 12:15 Insulin Detemir (Levemir) 25 units HS SQ Last administered on 04/20/17 21:00; Start 04/18/17 at 21:00 Insulin Aspart (NovoLOG) 10 units 1X ONCE SQ Last administered on 04/18/17 14: 00; Start 04/18/17 at 14:00; Stop 04/18/17 at 14:01; Status DC Morphine Sulfate 4 mg PRN Q2HR PRN IV SEVERE PAIN Last administered on 10:42; Start 04/18/17 at 21:45 Insulin Aspart (NovoLOG) 10 units 1X ONCE SQ Last administered on 04/19/17 08: 22; Start 04/19/17 at 08:30; Stop 04/19/17 at 08:31; Status DC Famotidine (Pepcid) 20 mg 1X ONCE IVP Last administered on 04/19/17 10:10; Start 04/19/17 at 10:15; Stop 04/19/17 at 10:16; Status DC Pantoprazole Sodium (Protonix) 40 mg DAILYAC PO Last administered on 04/21/17 07:42; Start 04/19/17 at 11:30 Diphenhydramine HCl (Benadryl) 25 mg PRN Q6HRS PRN PO ITCHING Last administered on 04/20/17 20:57; Start 04/20/17 at 02:00 Acetaminophen/ Hydrocodone Bitart (Lortab 5/325) 1 tab PRN Q4HRS PRN PO PAIN Last administered on 04/21/17 12:22; Start 04/20/17 at 13:30 Hydralazine HCl (Apresoline) 10 mg 1X ONCE IVP Last administered on 04/21/17 10:41; Start 04/21/17 at 10:45; Stop 04/21/17 at 10:46; Status DC Furosemide (Lasix) 20 mg 1X ONCE IVP Last administered on 04/21/17 10:41; Start 04/21/17 at 10:45; Stop 04/21/17 at 10:46; Status DC Active Scripts Active Lisinopril 20 Mg Tablet 20 Mg PO DAILY Doxycycline Hyclate 100 Mg Tablet 100 Mg PO BID Levemir Flextouch (Insulin Detemir) 100 Unit/1 Ml Insuln.pen 25 Unit SQ HS 30 Days Novolog (Insulin Aspart) 100 Unit/1 Ml Cartridge 10 Units SQ TIDAC 30 Days Reported Gabapentin 300 Mg Capsule 300 Mg PO TID Vitals/I & O Vital Sign - Last 24 Hours 04/20/17 04/20/17 04/20/17 04/20/17 14:09 15:08 17:34 19:45 Temp 98.3 98.5 98.3 98.5 Pulse 83 84 Resp 20 20 B/P (MAP) 159/115 (130) 170/126 (141) Pulse Ox 98 98 98 98 O2 Delivery Room Air Room Air Room Air Room Air 04/20/17 04/20/17 04/20/17 04/20/17 20:00 20:57 22:34 23:41 Temp 98.6 98.6 Pulse 75 Resp 20 B/P (MAP) 173/121 (138) Pulse Ox 97 O2 Delivery Room Air Room Air Room Air Room Air 04/21/17 04/21/17 04/21/17 04/21/17 03:19 07:15 07:43 08:00 Temp 98.6 97.5 98.6 97.5 Pulse 94 87 Resp 20 20 B/P (MAP) 151/116 (128) 153/112 (126) Pulse Ox 79 100 100 O2 Delivery Room Air Room Air Room Air Room Air 04/21/17 04/21/17 04/21/17 04/21/17 08:45 10:41 10:42 11:17 Pulse 91 B/P (MAP) 194/135 Pulse Ox 100 100 100 O2 Delivery Room Air Room Air Room Air 04/21/17 04/21/17 11:22 12:22 Temp 97.8 97.8 Pulse 93 Resp 18 B/P (MAP) 194/133 (153) Pulse Ox 97 97 O2 Delivery Room Air Room Air Intake and Output 04/20/17 04/20/17 04/21/17 15:00 23:00 07:00 Intake Total 240 ml 720 ml Balance 240 ml 720 ml Problem List Problems Medical Problems: (1) Atypical chest pain Status: Acute (2) DKA (diabetic ketoacidoses) Status: Acute (3) Tachycardia Status: Acute Assessment ABd pain- with gastroparesis/dm, abnl us, chronic acalculous cholecystitis in differential. HIDA EF in am to further assess ISAAC GODWIN MD Apr 21, 2017 12:42
--- NOTE | 2017-04-21 13:09 | PDOC ---
PROGRESS NOTES Chief Complaint Chief Complaint CC: dka 1. DKA POA: now hypoglycemic/ hyperglycemic. 2. DM type 1 3. Asthma 4. GERD 5. Leukocytosis: WBC 12.9 6. Hypomagnesia: 1.7 7. Chest pain resoled. 8. abdominal pain : Located in the epigastric region. Plan Patient continued to have hypoglycemia and hyperglycemia however his dietary intake is normal. Continue to check her blood sugars closely. Continue long- acting insulin with sliding scale insulin. BP not controlled. start IV lasix and iv hydralazine, consult [facility] GI, ELOISE IN am , case discussed with gastroenterology. labs ordered, History of Present Illness History of Present Illness Not feeling well, complains of abdominal pain, complains of headache, it appears very weak and dehydrated, Vitals Vitals Vital Signs Date Time Temp Pulse Resp B/P (MAP) Pulse Ox O2 Delivery O2 Flow Rate FiO2 04/21/17 12:22 97 Room Air 04/21/17 11:22 97.8 93 18 194/133 (153) 97.8 Physical Exam General: Alert, Oriented X3, Cooperative, mild distress Heart: Regular rate, Normal S1, Normal S2, Other (no significant murmurs, no gallops, clicks or rubs, + chest wall tenderness left and right of sternum) Lungs: Clear, Other (no wheezes or crackles) Abdomen: Normal bowel sounds, Soft Extremities: No cyanosis, Normal pulses, Other Skin: No rashes, No breakdown Labs LABS Laboratory Tests Test 04/20/17 16:43 04/20/17 20:59 04/21/17 06:22 04/21/17 07:01 Glucose (Fingerstick) 297 mg/dL (70-99) 317 mg/dL (70-99) 54 mg/dL (70-99) 148 mg/dL (70-99) Test 04/21/17 11:43 Glucose (Fingerstick) 290 mg/dL (70-99) Assessment and Plan Assessmemt and Plan Problems Medical Problems: (1) Atypical chest pain Status: Acute (2) DKA (diabetic ketoacidoses) Status: Acute (3) Tachycardia Status: Acute Problems: Comment Review of Relevant I have reviewed the following items cristela (where applicable) has been applied. Labs Laboratory Tests Test 04/19/17 14:40 04/19/17 16:57 04/19/17 20:38 04/19/17 21:30 Troponin I Quantitative 0.112 ng/mL (0.000-0.055) 0.122 ng/mL (0.000-0.055) Glucose (Fingerstick) 302 mg/dL (70-99) 149 mg/dL (70-99) Test 04/20/17 07:38 04/20/17 08:23 04/20/17 11:29 04/20/17 16:43 Glucose (Fingerstick) 44 mg/dL (70-99) 74 mg/dL (70-99) 139 mg/dL (70-99) 297 mg/dL (70-99) Test 04/20/17 20:59 04/21/17 06:22 04/21/17 07:01 04/21/17 11:43 Glucose (Fingerstick) 317 mg/dL (70-99) 54 mg/dL (70-99) 148 mg/dL (70-99) 290 mg/dL (70-99) Laboratory Tests Test 04/20/17 16:43 04/20/17 20:59 04/21/17 06:22 04/21/17 07:01 Glucose (Fingerstick) 297 mg/dL (70-99) 317 mg/dL (70-99) 54 mg/dL (70-99) 148 mg/dL (70-99) Test 04/21/17 11:43 Glucose (Fingerstick) 290 mg/dL (70-99) Microbiology 04/17/17 Urine Culture - Final, Complete 04/17/17 Urine Culture Result 1 (CEE) - Final, Complete Medications Current Medications Sodium Chloride 1,000 ml @ 100 mls/hr Q10H IV ; Start 04/17/17 at 19:22; Stop at 05:19; Status DC Ondansetron HCl (Zofran) 8 mg 1X ONCE IV Last administered on 04/17/17 19:43; Start 04/17/17 at 19:30; Stop 04/17/17 at 19:31; Status DC Aspirin (Ralph Aspirin) 325 mg 1X ONCE PO Last administered on 04/17/17 19:45 ; Start 04/17/17 at 19:30; Stop 04/17/17 at 19:31; Status DC Morphine Sulfate 5 mg 1X ONCE IV Last administered on 04/17/17 19:46; Start at 19:30; Stop 04/17/17 at 19:31; Status DC Sodium Chloride 1,000 ml @ 1,000 mls/hr 1X ONCE IV Last administered on 19:35; Start 04/17/17 at 19:30; Stop 04/17/17 at 20:29; Status DC Insulin Human Regular 150 unit/ Sodium Chloride 151.5 ml @ 0 mls/hr CONT PRN PRN IV PER PROTOCOL Last administered on 04/17/17 20:43; Start 04/17/17 at 20:15 Potassium Chloride 100 ml @ 100 mls/hr PRN Q1HR PRN IV SEE COMMENTS; Start 04/17/17 at 20:15; Stop 04/18/17 at 05:19; Status DC Potassium Chloride 100 ml @ 100 mls/hr PRN Q1HR PRN IV SEE COMMENTS; Start 04/17/17 at 20:15; Stop 04/18/17 at 05:19; Status DC Potassium Chloride 100 ml @ 100 mls/hr PRN Q1HR PRN IV SEE COMMENTS; Start 04/17/17 at 20:15; Stop 04/18/17 at 05:19; Status DC Insulin Human Regular 150 ml @ As Directed STK-MED ONCE IV ; Start 04/17/17 at 20:32; Stop 04/17/17 at 20:33; Status DC Sodium Chloride 1,000 ml @ 1,000 mls/hr 1X ONCE IV Last administered on 20:47; Start 04/17/17 at 21:00; Stop 04/17/17 at 21:59; Status DC Ondansetron HCl (Zofran) 4 mg PRN Q8HRS PRN IV NAUSEA/VOMITING Last administered on 04/18/17 17:21; Start 04/17/17 at 21:15; Stop 04/18/17 at 21:14; Status DC Morphine Sulfate 4 mg PRN Q2HR PRN IV SEVERE PAIN Last administered on 18:46; Start 04/17/17 at 21:15; Stop 04/18/17 at 21:14; Status DC Sodium Chloride 1,000 ml @ 150 mls/hr 1X ONCE IV ; Start 04/17/17 at 21:30; Stop 04/18/17 at 04:09; Status DC Sodium Chloride 1,000 ml @ 250 mls/hr Q4H IV Last administered on 04/17/17 22: 28; Start 04/17/17 at 23:00; Stop 04/18/17 at 00:04; Status DC Insulin Aspart (NovoLOG) 0-9 UNITS TIDWMEALS SQ Last administered on 04/21/17 12:24; Start 04/18/17 at 08:00 Dextrose (Dextrose 50%-Water Syringe) 12.5 gm PRN Q15MIN PRN IV SEE COMMENTS Last administered on 04/18/17 21:16; Start 04/18/17 at 00:00 Potassium Chloride 100 ml @ 100 mls/hr PRN Q1HR PRN IV SEE COMMENTS Last administered on 04/18/17 01:10; Start 04/18/17 at 00:00; Stop 04/18/17 at 05:19; Status DC Dextrose/Sodium Chloride 1,000 ml @ 250 mls/hr Q4H IV Last administered on 04/18 03:56; Start 04/18/17 at 00:05; Stop 04/18/17 at 05:19; Status DC Sodium Chloride 1,000 ml @ 125 mls/hr Q8H IV Last administered on 04/20/17 07: 29; Start 04/18/17 at 05:30 Sodium Chloride 500 ml @ 500 mls/hr 1X ONCE IV Last administered on 04/18/17 10:30; Start 04/18/17 at 10:30; Stop 04/18/17 at 11:29; Status DC Insulin Detemir (Levemir) 10 units 1X ONCE SQ Last administered on 04/18/17 12 :42; Start 04/18/17 at 11:45; Stop 04/18/17 at 11:46; Status DC Prochlorperazine Edisylate (Compazine) 10 mg PRN Q8HRS PRN IV NAUSEA/VOMITING Last administered on 04/21/17 10:50; Start 04/18/17 at 12:15 Insulin Detemir (Levemir) 25 units HS SQ Last administered on 04/20/17 21:00; Start 04/18/17 at 21:00 Insulin Aspart (NovoLOG) 10 units 1X ONCE SQ Last administered on 04/18/17 14: 00; Start 04/18/17 at 14:00; Stop 04/18/17 at 14:01; Status DC Morphine Sulfate 4 mg PRN Q2HR PRN IV SEVERE PAIN Last administered on 10:42; Start 04/18/17 at 21:45 Insulin Aspart (NovoLOG) 10 units 1X ONCE SQ Last administered on 04/19/17 08: 22; Start 04/19/17 at 08:30; Stop 04/19/17 at 08:31; Status DC Famotidine (Pepcid) 20 mg 1X ONCE IVP Last administered on 04/19/17 10:10; Start 04/19/17 at 10:15; Stop 04/19/17 at 10:16; Status DC Pantoprazole Sodium (Protonix) 40 mg DAILYAC PO Last administered on 04/21/17 07:42; Start 04/19/17 at 11:30 Diphenhydramine HCl (Benadryl) 25 mg PRN Q6HRS PRN PO ITCHING Last administered on 04/20/17 20:57; Start 04/20/17 at 02:00 Acetaminophen/ Hydrocodone Bitart (Lortab 5/325) 1 tab PRN Q4HRS PRN PO PAIN Last administered on 04/21/17 12:22; Start 04/20/17 at 13:30 Hydralazine HCl (Apresoline) 10 mg 1X ONCE IVP Last administered on 04/21/17 10:41; Start 04/21/17 at 10:45; Stop 04/21/17 at 10:46; Status DC Furosemide (Lasix) 20 mg 1X ONCE IVP Last administered on 04/21/17 10:41; Start 04/21/17 at 10:45; Stop 04/21/17 at 10:46; Status DC Active Scripts Active Lisinopril 20 Mg Tablet 20 Mg PO DAILY Doxycycline Hyclate 100 Mg Tablet 100 Mg PO BID Levemir Flextouch (Insulin Detemir) 100 Unit/1 Ml Insuln.pen 25 Unit SQ HS 30 Days Novolog (Insulin Aspart) 100 Unit/1 Ml Cartridge 10 Units SQ TIDAC 30 Days Reported Gabapentin 300 Mg Capsule 300 Mg PO TID Vitals/I & O Vital Sign - Last 24 Hours 04/20/17 04/20/17 04/20/17 04/20/17 14:09 15:08 17:34 19:45 Temp 98.3 98.5 98.3 98.5 Pulse 83 84 Resp 20 20 B/P (MAP) 159/115 (130) 170/126 (141) Pulse Ox 98 98 98 98 O2 Delivery Room Air Room Air Room Air Room Air 04/20/17 04/20/17 04/20/17 04/20/17 20:00 20:57 22:34 23:41 Temp 98.6 98.6 Pulse 75 Resp 20 B/P (MAP) 173/121 (138) Pulse Ox 97 O2 Delivery Room Air Room Air Room Air Room Air 04/21/17 04/21/17 04/21/17 04/21/17 03:19 07:15 07:43 08:00 Temp 98.6 97.5 98.6 97.5 Pulse 94 87 Resp 20 20 B/P (MAP) 151/116 (128) 153/112 (126) Pulse Ox 79 100 100 O2 Delivery Room Air Room Air Room Air Room Air 04/21/17 04/21/17 04/21/17 04/21/17 08:45 10:41 10:42 11:17 Pulse 91 B/P (MAP) 194/135 Pulse Ox 100 100 100 O2 Delivery Room Air Room Air Room Air 04/21/17 04/21/17 11:22 12:22 Temp 97.8 97.8 Pulse 93 Resp 18 B/P (MAP) 194/133 (153) Pulse Ox 97 97 O2 Delivery Room Air Room Air Intake and Output 04/20/17 04/20/17 04/21/17 15:00 23:00 07:00 Intake Total 240 ml 720 ml Balance 240 ml 720 ml Nutrition Consultation Dietary Evaluation: Recommendations by RD: Protein supplementation Comments: boost glucose control tid Expected Outcomes/Goals: to meet > 75% est nutr needs Interpretation of weight loss: >1-2% in 1 week Malnutrition Findings: Food and Nutrition Intake (Sev: <50% est energy req 5days Weight Status: Appropriate MARKUS CHANG MD Apr 21, 2017 13:09
[2017-04-21] MEDS ORDERED: hydrALAZINE 20 MG/ML VIAL. IVP PRN (14:00)
[2017-04-21 15:13] VITALS: BP 137/94
--- NOTE | 2017-04-21 16:10 | PDOC2 ---
CONSULT Date of Consult Date of Consult DATE: 04/21/17 TIME: 16:06 Reason for Consult Reason for Consult: abd pain Referring Physician Referring Physician: [email or web address] Identification/Chief Complaint Chief Complaint abd pain, nausea Problems: Source Source: Patient History of Present Illness Reason for Visit: 21 yo F admitted with DKA. Has improved, but notes persistent problems with nausea and abd pain. Appears fatigued. Hx of pancreatitis previously. Past Medical History Cardiovascular: No pertinent hx Pulmonary: Asthma GI: GERD, Other Heme/Onc: No pertinent hx Hepatobiliary: No pertinent hx Psych: No pertinent hx Rheumatologic: No pertinent hx Infectious disease: No pertinent hx Renal/: No pertinent hx Endocrine: Diabetes Past Surgical History Past Surgical History: No pertinent history Family History Family History: No Significant, Other (DM) Social History No ALCOHOL: none Drugs: Marijuana (in the past) Lives: with Family Domestic Violence: Neg Current Problem List Problem List Problems Medical Problems: (1) Atypical chest pain Status: Acute (2) DKA (diabetic ketoacidoses) Status: Acute (3) Tachycardia Status: Acute Current Medications Current Medications Current Medications Sodium Chloride 1,000 ml @ 100 mls/hr Q10H IV ; Start 04/17/17 at 19:22; Stop at 05:19; Status DC Ondansetron HCl (Zofran) 8 mg 1X ONCE IV Last administered on 04/17/17 19:43; Start 04/17/17 at 19:30; Stop 04/17/17 at 19:31; Status DC Aspirin (Ralph Aspirin) 325 mg 1X ONCE PO Last administered on 04/17/17 19:45 ; Start 04/17/17 at 19:30; Stop 04/17/17 at 19:31; Status DC Morphine Sulfate 5 mg 1X ONCE IV Last administered on 04/17/17 19:46; Start at 19:30; Stop 04/17/17 at 19:31; Status DC Sodium Chloride 1,000 ml @ 1,000 mls/hr 1X ONCE IV Last administered on 19:35; Start 04/17/17 at 19:30; Stop 04/17/17 at 20:29; Status DC Insulin Human Regular 150 unit/ Sodium Chloride 151.5 ml @ 0 mls/hr CONT PRN PRN IV PER PROTOCOL Last administered on 04/17/17 20:43; Start 04/17/17 at 20:15 Potassium Chloride 100 ml @ 100 mls/hr PRN Q1HR PRN IV SEE COMMENTS; Start 04/17/17 at 20:15; Stop 04/18/17 at 05:19; Status DC Potassium Chloride 100 ml @ 100 mls/hr PRN Q1HR PRN IV SEE COMMENTS; Start 04/17/17 at 20:15; Stop 04/18/17 at 05:19; Status DC Potassium Chloride 100 ml @ 100 mls/hr PRN Q1HR PRN IV SEE COMMENTS; Start 04/17/17 at 20:15; Stop 04/18/17 at 05:19; Status DC Insulin Human Regular 150 ml @ As Directed STK-MED ONCE IV ; Start 04/17/17 at 20:32; Stop 04/17/17 at 20:33; Status DC Sodium Chloride 1,000 ml @ 1,000 mls/hr 1X ONCE IV Last administered on 20:47; Start 04/17/17 at 21:00; Stop 04/17/17 at 21:59; Status DC Ondansetron HCl (Zofran) 4 mg PRN Q8HRS PRN IV NAUSEA/VOMITING Last administered on 04/18/17 17:21; Start 04/17/17 at 21:15; Stop 04/18/17 at 21:14; Status DC Morphine Sulfate 4 mg PRN Q2HR PRN IV SEVERE PAIN Last administered on 18:46; Start 04/17/17 at 21:15; Stop 04/18/17 at 21:14; Status DC Sodium Chloride 1,000 ml @ 150 mls/hr 1X ONCE IV ; Start 04/17/17 at 21:30; Stop 04/18/17 at 04:09; Status DC Sodium Chloride 1,000 ml @ 250 mls/hr Q4H IV Last administered on 04/17/17 22: 28; Start 04/17/17 at 23:00; Stop 04/18/17 at 00:04; Status DC Insulin Aspart (NovoLOG) 0-9 UNITS TIDWMEALS SQ Last administered on 04/21/17 12:24; Start 04/18/17 at 08:00 Dextrose (Dextrose 50%-Water Syringe) 12.5 gm PRN Q15MIN PRN IV SEE COMMENTS Last administered on 04/18/17 21:16; Start 04/18/17 at 00:00 Potassium Chloride 100 ml @ 100 mls/hr PRN Q1HR PRN IV SEE COMMENTS Last administered on 04/18/17 01:10; Start 04/18/17 at 00:00; Stop 04/18/17 at 05:19; Status DC Dextrose/Sodium Chloride 1,000 ml @ 250 mls/hr Q4H IV Last administered on 04/18 03:56; Start 04/18/17 at 00:05; Stop 04/18/17 at 05:19; Status DC Sodium Chloride 1,000 ml @ 125 mls/hr Q8H IV Last administered on 04/20/17 07: 29; Start 04/18/17 at 05:30 Sodium Chloride 500 ml @ 500 mls/hr 1X ONCE IV Last administered on 04/18/17 10:30; Start 04/18/17 at 10:30; Stop 04/18/17 at 11:29; Status DC Insulin Detemir (Levemir) 10 units 1X ONCE SQ Last administered on 04/18/17 12 :42; Start 04/18/17 at 11:45; Stop 04/18/17 at 11:46; Status DC Prochlorperazine Edisylate (Compazine) 10 mg PRN Q8HRS PRN IV NAUSEA/VOMITING Last administered on 04/21/17 10:50; Start 04/18/17 at 12:15 Insulin Detemir (Levemir) 25 units HS SQ Last administered on 04/20/17 21:00; Start 04/18/17 at 21:00 Insulin Aspart (NovoLOG) 10 units 1X ONCE SQ Last administered on 04/18/17 14: 00; Start 04/18/17 at 14:00; Stop 04/18/17 at 14:01; Status DC Morphine Sulfate 4 mg PRN Q2HR PRN IV SEVERE PAIN Last administered on 14:41; Start 04/18/17 at 21:45 Insulin Aspart (NovoLOG) 10 units 1X ONCE SQ Last administered on 04/19/17 08: 22; Start 04/19/17 at 08:30; Stop 04/19/17 at 08:31; Status DC Famotidine (Pepcid) 20 mg 1X ONCE IVP Last administered on 04/19/17 10:10; Start 04/19/17 at 10:15; Stop 04/19/17 at 10:16; Status DC Pantoprazole Sodium (Protonix) 40 mg DAILYAC PO Last administered on 04/21/17 07:42; Start 04/19/17 at 11:30 Diphenhydramine HCl (Benadryl) 25 mg PRN Q6HRS PRN PO ITCHING Last administered on 04/20/17 20:57; Start 04/20/17 at 02:00 Acetaminophen/ Hydrocodone Bitart (Lortab 5/325) 1 tab PRN Q4HRS PRN PO PAIN Last administered on 04/21/17 12:22; Start 04/20/17 at 13:30 Hydralazine HCl (Apresoline) 10 mg 1X ONCE IVP Last administered on 04/21/17 10:41; Start 04/21/17 at 10:45; Stop 04/21/17 at 10:46; Status DC Furosemide (Lasix) 20 mg 1X ONCE IVP Last administered on 04/21/17 10:41; Start 04/21/17 at 10:45; Stop 04/21/17 at 10:46; Status DC Hydralazine HCl (Apresoline) 10 mg PRN Q4HRS PRN IVP for SBP > 160; Start at 14:00 Active Scripts Active Lisinopril 20 Mg Tablet 20 Mg PO DAILY Doxycycline Hyclate 100 Mg Tablet 100 Mg PO BID Levemir Flextouch (Insulin Detemir) 100 Unit/1 Ml Insuln.pen 25 Unit SQ HS 30 Days Novolog (Insulin Aspart) 100 Unit/1 Ml Cartridge 10 Units SQ TIDAC 30 Days Reported Gabapentin 300 Mg Capsule 300 Mg PO TID Allergies Allergies: Coded Allergies: No Known Medication Allergies (Verified Allergy, Unknown, 12/31/16) ROS General: YES: Fatigue Gastrointestinal: Yes Nausea, Yes Abdominal Pain Physical Exam General: Alert, Oriented X3, Cooperative, No acute distress HEENT: Atraumatic, EOMI Lungs: Normal air movement Abdomen: Soft, Other (some TTP RUQ) Extremities: No clubbing, No cyanosis Skin: No rashes, No breakdown Neuro: Normal speech Psych/Mental Status: Mental status NL, Mood NL Vitals VITALS Vital Signs Date Time Temp Pulse Resp B/P (MAP) Pulse Ox O2 Delivery O2 Flow Rate FiO2 04/21/17 15:13 98.0 98 18 137/94 (108) 97 Room Air 98.0 Labs Labs Laboratory Tests Test 04/19/17 16:57 04/19/17 20:38 04/19/17 21:30 04/20/17 07:38 Glucose (Fingerstick) 302 mg/dL (70-99) 149 mg/dL (70-99) 44 mg/dL (70-99) Troponin I Quantitative 0.122 ng/mL (0.000-0.055) Test 04/20/17 08:23 04/20/17 11:29 04/20/17 16:43 04/20/17 20:59 Glucose (Fingerstick) 74 mg/dL (70-99) 139 mg/dL (70-99) 297 mg/dL (70-99) 317 mg/dL (70-99) Test 04/21/17 06:22 04/21/17 07:01 04/21/17 11:43 04/21/17 15:29 Glucose (Fingerstick) 54 mg/dL (70-99) 148 mg/dL (70-99) 290 mg/dL (70-99) 161 mg/dL (70-99) Laboratory Tests Test 04/20/17 16:43 04/20/17 20:59 04/21/17 06:22 04/21/17 07:01 Glucose (Fingerstick) 297 mg/dL (70-99) 317 mg/dL (70-99) 54 mg/dL (70-99) 148 mg/dL (70-99) Test 04/21/17 11:43 04/21/17 15:29 Glucose (Fingerstick) 290 mg/dL (70-99) 161 mg/dL (70-99) Images Images US with GB wall thickening, favor other causes, no stones Assessment/Plan Assessment/Plan nausea, abd pain suspect gastroparesis involvement, given severe DM (elevated Hgb a1c) agree with PiPPDA pt represents poor surgical candidate given elevated BP and uncontrolled DM will follow Thanks for consult! LIZA SPARKS MD Apr 21, 2017 16:10
[2017-04-21] MEDS ORDERED: HYDROmorphone 2 MG/ML VIAL IV ONE (19:00)
[2017-04-21 19:50] VITALS: BP 166/112
[2017-04-21] MEDS ORDERED: LABETALOL 20 MG/4 ML DISP.SYRIN. IVP PRN (20:30)
[2017-04-21] MEDS ORDERED: INSULIN DETEMIR 300 UNITS/3 ML INSULN.PEN. SQ ONE (21:00)
[2017-04-21] MEDS: diphenhydrAMINE HCL 25 MG CAPSULE PO PRN (21:47)
[2017-04-21 23:08] VITALS: BP 135/89
[2017-04-22] MEDS: HYDROcodone/APAP 5/325MG 1 TAB TABLET PO PRN ×4 (01:03→23:39)
--- NOTE | 2017-04-22 02:50 | ACF ---
Admission Forms Criteria GENERAL ADMISSION CRITERIA (Place 'X' for any and all applicable criteria): Admission is indicated for ANY ONE of the following: [ ]I. Hemodynamic instability as indicated by ANY ONE of the following(1)(2) (3)(4)(5): [ ]a) Vital sign abnormality not readily corrected by appropriate treatment within 12 to 24 hours indicated by ANY ONE of the following: [ ]i) Hypotension [ ]ii) Symptomatic Tachycardia unresponsive to treatment (eg , analgesia, fluids, sedation as indicated) [ ]iii) Orthostatic vital sign changes unresponsive to treatment (eg, fluids) [ ]b) Vital sign abnormality that is severe indicated by ANY ONE of the following: [ ]i) Inadequate perfusion indicated by ANY ONE of the following: [ ]1) Lactic acidosis (greater than 2 mmol/L) [ ]2) New abnormal capillary refill (greater than 3 seconds) [ ]3) Other metabolic acidosis (arterial pH less than 7.35) not otherwise explained [ ]4) Reduced urine output [ ]5) Altered mental status [ ]6) Myocardial Ischemia [ ]v) Mean arterial pressure[A] less than 60 mm Hg [ ]vi) Mean arterial pressure[A] less than 70 mm Hg after 30 minutes of appropriate treatment (eg, fluid resuscitation) [ ]vii) IV inotropic or vasopressor medication required to maintain adequate blood pressure or perfusion [ ]viii) Sustained heart rate greater than 120 beats per minute in adult or child 6 years or older[B]] [ ]II. Hypertension requiring inpatient treatment as indicated by ANY ONE of the following(6)(7)(8): [ ]a) SBP greater than 220 mm Hg or DBP greater than 120 mm Hg despite treatment [ ]b) SBP greater than 140 mm Hg or DBP greater than 100 mm Hg with evidence of acute end organ damage as indicated by ANY ONE of the following: [ ]i) Encephalopathy [ ]ii) Acute renal failure as indicated by new onset of ANY ONE of the following(9)(10)(11)(12)(13): [ ]1) A 3-fold rise in serum creatinine from baseline [ ]2) Serum creatinine greater than 4 mg/dL ( 354 micromoles/L) with acute rise greater than 0.5 mg/dL (44.2 micromoles/L) [ ]3) Reduction of more than 75% in estimated glomerular filtration rate from baseline [ ]4) Estimated glomerular filtration rate less than 35 mL/min/1.73m2 (0.59 mL/sec/1.73m2) in child up to 18 years of age [ ]5) Cessation of urine output indicated by ALL of the following: [ ]A. Adequate volume status [ ]B. Inadequate urine output as indicated by ANY ONE of the following: [ ]a. Urine output less than 0.3 mL/kg/hr for 24 hours [ ]b. Anuria (urine output less than 0.1 mL/kg/hr) for 12 hours [ ]iii) Aortic dissection [ ]iv) Myocardial ischemia [ ]v) Left ventricular heart failure [ ]vi) Retinal hemorrhage [ ]vii) Other significant finding [ ]c) Hypertension in child requiring inpatient treatment as indicated by ALL of the following(14)(15)(16): [ ]i) Outpatient treatment not effective, not available, or not appropriate [ ]ii) SBP or DBP greater than 95th percentile for age [ ]iii) Evidence of acute end organ damage as indicated by ANY ONE of the following: [ ]1) Altered mental status [ ]2) Acute renal failure as indicated by new onset of ANY ONE of the following(9)(10)(11)(12)(13): [ ]A. A 3-fold rise in serum creatinine from baseline [ ]B. Serum creatinine greater than 4 mg/dL (354 micromoles/L) with acute rise greater than 0.5 mg/dL (44.2 micromoles/L) [ ]C. Reduction of more than 75% in estimated glomerular filtration rate from baseline [ ]D. Estimated glomerular filtration rate less than 35 mL/min/1.73m2 (0.59 mL/sec/1.73m2)in child up to 18 years of age [ ]E. Cessation of urine output indicated by ALL of the following: [ ]a. Adequate volume status [ ]b. Inadequate urine output as indicated by ANY ONE of the following: [ ]1) Urine output less than 0.3 mL/kg/hr for 24 hours [ ]2) Anuria (urine output less than 0.1 mL/kg/hr) for 12 hours [ ]3) Severe headache [ ]4) Visual disturbance [ ]5) Retinal hemorrhage [ ]6) Other significant finding [ ]III. Acute cardiac or peripheral ischemia as indicated by ANY ONE of the following: [ ]a) Acute coronary syndrome(17)(18) [ ]b) Acute peripheral ischemia (eg, pulseless, cool, mottled, or cyanotic extremity)(19) [ ]IV. Cardiac arrhythmias or findings of immediate concern indicated by ANY ONE of the following(20)(21): [ ]a) Heart rhythms that are inherently dangerous or unstable indicated by ANY ONE of the following(22)(23)(24): [ ]i) Resuscitated ventricular fibrillation or cardiac arrest [ ]ii) Ventricular escape rhythm [ ]iii) Sustained ventricular tachycardia (30 seconds or more of ventricular rhythm at greater than 100 beats per minute) [ ]iv) Nonsustained ventricular tachycardia and ANY ONE of the following: [ ]1) Suspected cardiac ischemia as cause or consequence of ventricular tachycardia [ ]2) In setting of acute myocarditis [ ]b) Unstable cardiac conduction defects indicated by ANY ONE of the following(24)(25)(26): [ ]i) Type II second-degree atrioventricular block [ ]ii) Third-degree atrioventricular block [ ]iii) New-onset left bundle branch block with suspected myocardial ischemia [ ]c) Any heart rhythm and ANY ONE of the following(22)(23)(27)(28)( 29): [ ] i) Continuous long-term ECG monitoring needed (eg, initiation of drug requiring monitoring for more than 24 hours) [ ] ii) Patient has automatic implanted cardioverter defibrillator that is repeatedly firing, malfunctioning, or in need of immediate adjustment of settings beyond the scope of ambulatory or observation care. [ ]d) Heart rhythms of concern due to ANY ONE of the following: [ ]i) Hypotension [ ]ii) Respiratory distress [ ]iii) Association with other significant symptoms (eg, bradycardia with syncope or ongoing dizziness, supraventricular tachycardia with chest pain) (27)(28) (30) [ ] V. Severe heart failure as indicated by ANY ONE of the following ( 31)(32): [ ]a) Respiratory distress [ ]b) Hypotension [ ]c) Anasarca (refractory to outpatient therapy) [ ]d) Cardiac arrhythmias of immediate concern [ ]e) Myocardial ischemia [ ]. Respiratory abnormalities, including ANY ONE of the following(33)(34) (35)(36): [ ]a) Respiratory rate greater than 30 breaths per minute unresponsive to treatment [A] [ ]b) New saturation of arterial oxygen less than 90% [ ]c) New partial pressure of carbon dioxide greater than 44 mm Hg ( 5.9 kPa) [ ]d) Supplemental oxygen or respiratory treatments needed that are new or not performable at other levels of care [ ]e) New-onset cyanosis [ ]f) Inability to protect airway [ ]g) Chronic lung disease with severe deterioration (not responsive to emergency and observation care treatment as appropriate) as indicated by ANY ONE of the following(34)(36 ): [ ]i) SaO2 5% below baseline in patient with chronic hypoxemia [ ]ii) New requirement for supplemental oxygen to keep SaO2 at baseline or acceptable level [ ]iii) Required supplemental oxygen performable only in acute inpatient setting [ ]iv) Severe airflow or ventilation abnormalities [ ]v) Previously mobile patient unable to walk between rooms [ ]vi Inability to eat or sleep due to dyspnea [ ]vii) Rapid rate of exacerbation onset [ ]viii) Altered mental status ]VII. Severe airflow or ventilation abnormalities (not responsive to emergency and observation care treatment as appropriate) as indicated by ANY ONE of the following(33)(34)(35)(37): [ ]a) PCO2 greater than 42 mm Hg (5.6 kPa) and pH less than 7.35 (new ) [ ]b) Documented PCO2 increased more than 5 mm Hg (0.7 kPa) from disease baseline [ ]c) Airflow measurements [B] less than 60% of previous best or predicted (eg, peak expiratory flow rate less than 300 L/minute) despite intensive emergent treatment [C] [ ]d) Required respiratory treatments that are performable only in acute inpatient setting [ ]VIII. Impending or actual respiratory arrest ( Also use Respiratory Failure GRG for severe respiratory disease and long-term mechanical ventilation patients) [ ]IX. Neurologic abnormalities, including ANY ONE of the following: [ ]a) New findings that suggest ANY ONE of the following: [ ]i) HUB BANDER infection(38) [ ]ii) Cerebral bleeding, ischemia, or vasospasm(39)(40) [ ]iii) Increased intracranial pressure, hydrocephalus, or cerebral edema(41)(42)(43) [ ]iv) Spinal cord injury(44) [ ]b) Uncontrolled seizures(45) [ ]c) New-onset coma (eg, Lukas coma scale score less than 9) or unexplained abnormal mental status (eg, Lukas coma scale score less than 14) [D](41)(46)(47) [ ]X. New-onset severe neurologic findings requiring inpatient care; examples include(42)(48)(49): [ ]a) Papilledema [ ]b) Cerebral edema [ ]c) Mass effect on CT scan [ ]XI. Suspected acute intra-abdominal process with peritoneal signs, abdominal mass, or similar findings (50)(51)(52) [X]XII. Severe physiologic disorder remaining after emergency or observation level care (as appropriate) as indicated by ANY ONE of the following (53): [ ]a) Significant dehydration [X]b) Diabetic ketoacidosis [ ]c) Hyperglycemic hyperosmolar state (eg, osmolality greater than 320 mOsm/kg (mmol/kg) [ ]d) Hypoglycemia [ ]e) Other (new) acid-base disorder with pH less than 7.35 or greater than 7.5(54) [ ]f) Thyroid storm (55) [ ]g) Myxedema coma (55) [ ]XIII. Abdominal abnormalities with ANY ONE of the following(56)(57): [ ]a) Absent bowel sounds with complete ileus [ ]b) Signs of intestinal obstruction or peritonitis [E] [ ]c) Nausea and vomiting that cannot be controlled with outpatient or observation care [ ]XIV. Acute renal failure as indicated by new onset of ANY ONE of the following(9)(10)(11)(12)(13): [ ]a) A 3-fold rise in serum creatinine from baseline [ ]b) Serum creatinine greater than 4 mg/dL (354 micromoles/L) with acute rise greater than 0.5 mg/dL (44.2 micromoles/L) [ ]c) Reduction of more than 75% in estimated glomerular filtration rate from baseline [ ]d) Estimated glomerular filtration rate less than 35 mL/min/ 1.73m2 (0.59 mL/sec/1.73m2) in child up to 18 years of age [ ]e) Cessation of urine output indicated by ALL of the following: [ ]i) Adequate volume status [ ]ii) Inadequate urine output as indicated by ANY ONE of the following: [ ]1) Urine output less than 0.3 mL/kg/hr for 24 hours [ ]2) Anuria (urine output less than 0.1 mL/kg/hr) for 12 hours [ ]XV. Significant uremic complications as indicated by ANY ONE of the following(58)(59)(60): [ ]a) Outpatient therapy is ineffective or not feasible for ANY ONE of the following: [ ]i) Severe heart failure [ ]ii) Severehypertension [ ]iii) Pleural effusion [ ]iv) Pericarditis or pericardial effusion [ ]b) Cardiac arrhythmias of immediate concern [ ]c) Intractable nausea or vomiting [ ]d) Recurrent seizures [ ]e) Encephalopathy [ ]f) Bleeding abnormalities (eg, platelet dysfunction) with active (eg, gastrointestinal) bleeding [ ]g) Dialysis indicated before long-term access or ambulatory arrangements can be made [ ]h) Significant metabolic or electrolyte abnormalities (eg, severe acidosis or hyperkalemia) [ ]XVI. High fever or other high-risk infection situation as indicated by ANY ONE of the following(61)(62)(63)(64): [ ]a) Outpatient and observation care antimicrobial treatment unavailable, not effective, or not appropriate [ ]b) Documented bacteremia [ ]c) Temperature greater than 40.5 degrees C (104.9 degrees F) ( oral) [ ]d) Temperature greater than 39.5 degrees C (103.1 degrees F) ( oral) or less than 36 degrees C (96.8 degrees F) (rectal) that does not respond to e treatment and observation care [ ] XVII. Temperature less than 95 degrees F (35 degrees C)(rectal)(65) [ ] XVIII. Severe nutritional abnormalities as indicated by ALL of the following (66)(67): [ ]a) Inability to tolerate or establish sufficient oral or other enteral nutrition in outpatient setting [ ]b) Parenteral nutrition regimen need that must be implemented on inpatient basis [ ] XIX. Severe electrolyte abnormalities indicated by ALL of the following(68) (69)(70): [ ]a) Electrolytes and associated findings are not as expected for patient baseline or acceptable treatment effects. [ ]b) Severe abnormalities indicated by ANY ONE of the following: [ ]i) Sodium less than 130 mEq/L (mmol/L) (new) [ ]ii)Sodium less than 135 mEq/L (mmol/L) with ANY ONE of the following: [ ]1) Uncorrectable (to near normal or chronic baseline) after trial of outpatient and emergency treatment [ ]2) Altered mental status [ ]3) Seizures [ ]4) Severe medical etiology requiring inpatient management (eg, heart failure, hypovolemia) [ ]iii) Sodium greater than 155 mEq/L (mmol/L) [ ]iv) Sodium greater than 150 mEq/L (mmol/L) with ANY ONE of the following: [ ]1) Uncorrectable (to near normal or chronic baseline) with outpatient and emergency treatment [ ]2) Altered mental status [ ]3) Seizures [ ]4) Severe medical etiology (eg, hypovolemia, diabetes insipidus) [ ]v) Potassium less than 2.5 mEq/L (mmol/L) despite outpatient and emergency treatment [ ]vi) Potassium less than 3 mEq/L (mmol/L) with ANY ONE of the following: [ ]1) Weakness [ ]2) Cardiac abnormality (eg, arrhythmia, conduction disturbance) [ ]3) Cardiac ischemia [ ]4) Ileus [ ]5) Ongoing medical cause requiring inpatient management (eg, acute renal wasting or SIADH) [ ]6) Other severe symptoms [ ]vii) Potassium greater than 6.5 mEq/L (mmol/L) [ ]viii) Potassium greater than 5 mEq/L (mmol/L) with ANY ONE of the following: [ ]1) Uncorrectable (to near normal or chronic baseline) with outpatient and emergency treatment [ ]2) Severe ECG findings [F] [ ]3) Acute worsening of renal failure (creatinine greater than 2.5 mg/dL (221 micromoles/L) or significant elevation for age and size) [ ]4) Severe weakness [ ]5) Severe medical etiology (eg, hemolysis, infection, drug overdose) [ ]ix) Calcium less than 7 mg/dL (1.75 mmol/L) despite outpatient and emergency treatment (72) [ ]x) Calcium less than 8 mg/dL (2 mmol/L) with significant symptoms or findings; examples include(72): [ ]1) Altered mental status [ ]2) Muscle spasms [ ]3) Seizures [ ]4) Breathing difficulty [ ]5) Cardiac abnormality (eg, arrhythmia or conduction disturbance) [ ]xi) Calcium greater than 14 mg/dL (3.5 mmol/L)(72) [ ]xii) Calcium greater than 12 mg/dL (3 mmol/L) with ANY ONE of the following(72): [ ]1) Uncorrectable (to near normal or chronic baseline) with outpatient and emergency treatment [ ]2) Significant dehydration or hypovolemia as indicated by ALL of the following(70)(73)(74): [ ]A. Not resolved with initial treatments [ ]B. Clinically significant dehydration as indicated by ANY ONE of the following: [ ]a. Vomiting refractory to outpatient treatment (ie, precluding oral rehydration) [ ]b. Inability to drink [ ]c. Hypernatremia or other electrolyte abnormality unable to be corrected with outpatient and emergency treatment [ ]d. Failure to remain hydrated with outpatient therapy [ ]e. Reduced urine output [ ]f. Hypotension [ ]g. Serious cause for dehydration requiring acute hospitalization (eg, bowel obstruction, increased intracranial pressure, infectious cause) [ ]h. Child with ANY ONE of the following(75): [ ]1) Severe abdominal tenderness [ ]2) Adequate care not available at home [ ]3) Severe dehydration ( greater than 9% loss of body weight) [ ]4) Significant symptoms or findings; examples include: [ ]A. Altered mental status [ ]B. Cardiac abnormality (eg, arrhythmia, conduction disturbance) [ ]C. Malignant etiology requiring inpatient treatment [ ]xiii) Phosphorus less than 1 mg/dL (0.32 mmol/L) [ ]xiv) Phosphorus less than 1.5 mg/dL (0.48 mmol/L) with ANY ONE of the following: [ ]1) Patient unresponsive to outpatient and emergency treatment [ ]2) Significant symptoms or findings; examples include: [ ]A. Weakness [ ]B. Altered mental status [ ]C. Breathing difficulty [ ]D. Seizures [ ]E. Rhabdomyolysis [ ]xv) Phosphorus greater than 10 mg/dL (3.2 mmol/L) [ ]xvi) Phosphorus greater than 4.5 mg/dL (1.45 mmol/L) (new) with ANY ONE of the following: [ ]1) Severe medical etiology (eg, crush injury, acute renal failure) [ ]2) Associated hypocalcemia with significant findings; examples include: [ ]A. Neurologic symptoms [ ]B. Altered mental status [ ]C. Muscle spasms [ ]D. Seizures [ ]E. Breathing difficulty [ ]F. Cardiac abnormality (eg, arrhythmia, conduction disturbance) [ ]xvii) Magnesium less than 1 mg/dL (0.41 mmol/L) [ ]xviii) Magnesium less than 1.5 mg/dL (0.62 mmol/L) with ANY ONE of the following: [ ]1) Patient unresponsive to outpatient and emergency treatment [ ]2) Associated hypocalcemia with significant findings; examples include: [ ]A. Altered mental status [ ]B. Muscle spasms [ ]C. Seizures [ ]D. Breathing difficulty [ ]E. Cardiac abnormality (eg, arrhythmia , conduction disturbance) [ ]3) Associated hypokalemia (potassium less than 3 mEq/L (mmol/L)) with risk of arrhythmia [ ]xix) Magnesium greater than 4 mEq/L (2 mmol/L) [ ]xx) Magnesium greater than 2.5 mEq/L (1.25 mmol/L) with significant symptoms or findings; examples include: [ ]1) Weakness [ ]2) Altered mental status [ ]3) Cardiac abnormality (eg, arrhythmia, conduction disturbance) [ ]4) Breathing difficulty [ ]5) Severe medical etiology (eg, renal failure, hypovolemia) [ ]xxi) Uric acid greater than 20 mg/dL (1190 micromoles/L)(76) [ ]xxii) Uric acid greater than 8 mg/dL (476 micromoles/L) with significant symptoms or findings of tumor lysis syndrome; examples include(76): [ ]1) Creatinine greater than 1.5 times upper limit of normal [ ]2) Cardiac abnormality (eg, arrhythmia, conduction disturbance) [ ]3) Seizure [ ]XX. Acute blood loss causing significant abnormality as indicated by ANY ONE of the following(77)(78): [ ]a) Hemoglobin less than 10 g/dL (100 g/L) (not baseline) [ ]b) Hematocrit less than 30% (0.30) (not baseline) [ ]c) Repeat hematocrit decreased more than 2% (0.02) [ ]d) Uncontrolled bleeding [ ]XXI. Severe anemia indicated by ANY ONE of the following(78)(79): [ ]a) Altered mental status [ ]b) Chest pain [ ]c) Exertional dyspnea [ ]d) Syncope [ ]e) Other findings suggesting inadequate perfusion [ ]f) Treatment with transfusion or volume replacement is ineffective at resolving ANY ONE of the following [G]: [ ]i) Tachycardia for age [ ]ii) Orthostatic vital sign changes as indicated by ANY ONE of the following(80): [ ]1) Fall in SBP of 20 mm Hg or more 1 to 3 minutes after patient sits or stands from recumbent position [ ]2) Fall in DBP of 10 mm Hg or more 1 to 3 minutes after patient sits or stands from recumbent position [ ]XXII. High-risk low platelet count as indicated by ANY ONE of the following( 81)(82): [ ]a) Severe or life-threatening bleeding (eg, intracranial, major gastrointestinal, or extensive mucosal bleeding), with any reduced platelet count [ ]b) Platelet count less than 20,000/mm3 (20 x109/L) with any active bleeding [ ]c) Platelet count less than 10,000/mm3 (10 x109/L) with minor purpura or petechiae [ ]d) Platelet count less than 5000/mm3 (5 x109/L) [ ]e) Low platelet count with hemolytic anemia [ ]XXIII. Disseminated intravascular coagulation(77)(83) [ ]XXIV. Severe adverse drug or systemic toxin reaction requiring inpatient treatment; examples include(84)(85): [ ]a) Serotonin syndrome(86) [ ]b) Neuroleptic malignant syndrome(86) [ ]c) Cholinergic syndrome with severe symptoms (eg, bronchorrhea, weakness, mental status changes, seizures) [ ]d) Sympathetic syndrome with severe symptoms (eg, seizures, mental status changes, cardiac dysrhythmias) [ ]e) Anticholinergic syndrome [ ]XXV. Severe pain requiring acute inpatient management as indicated by ALL of the following (87)(88)(89): [ ]a) Continuous or frequent (eg, every 2 to 4 hours) parenteral analgesics required [H] [ ]b) Rapid improvement expected from treatment or acute intervention (eg, surgery, anesthesia procedure) [ ]XXVI.Severe behavioral health issues judged unmanageable at a lower level of care (eg, residential) in a patient who is ANY ONE of the following(91) [ ]a) Acutely suicidal [ ]b) A danger to self (eg, self-mutilating or suicidal behavior) [ ]c) A danger to others (eg, assaultive or homicidal behavior) [ ]d) Incapacitated because of grave disability (eg, inability to provide for self at lower level of care) (92) [ ]XXVII. Inpatient monitoring needed; examples include(1)(3)(87)(93)(94)(95)(96 ): [ ]a) Vital signs, neurologic signs, or vascular checks more frequently than every 4 hours [ ]b) Cardiac or respiratory monitoring beyond the scope (eg, over 24 hours) of observation care [ ]c) Pulmonary artery catheter monitoring [ ]d) Suspected compartment syndrome(97) (98) [ ]e) Cerebral bleeding, hydrocephalus, or vasospasm monitoring [ ]f) Increased intracranial pressure or cerebral edema monitoring [ ]g) monitoring [ ]XXVIII. Treatment requiring inpatient care; examples include: [ ]a) IV fluid to replace significant ongoing losses (greater than 3 L/m2 per day)(53) [ ]b) High concentration oxygen (greater than 40%)(33)(99)(100) [ ]c) Frequent respiratory therapy (more frequently than every 4 hours) to maintain airflow rates greater than 60% of baseline(33)(99)(100) [ ]d) Epidural analgesia(87) [ ]e) IV anticoagulation, vasoactive, or antiarrhythmic medication(19 )(23) [ ]f) Acute thrombolytics (generally require 24 hours of observation )(101)(102) [ ]XXIX. Emergency procedures needed; examples include: [ ]a) Emergency inpatient surgery [ ]b) Temporary pacemaker placement(103) [ ]c) Chest tube placement with active evacuation (eg, suction, drainage)(104) [ ]d) Emergent cardioversion(105) [ ]e) Emergent cardiac or vascular procedures (eg, cardiac catheterization, angioplasty) (17)(18) [ ]f) Emergent dialysis access placement and institution(10)(106) [ ]g) Emergent pericardiocentesis(107) [ ]h) Emergent plasmapheresis or leukapheresis(83) [ ]i) Emergent tracheostomy The original test company content created by test company has been revised. The portions of the content which have been revised are identified through the use of italic text or in bold, and [employer] [facility] [employer] has neither reviewed nor approved the modified material. All other unmodified content is copyright test company. Please see references footnoted in the original [employer] [facility] [facility] edition 2016 Admission Criteria Met?: Yes SACHIN NIETO Apr 22, 2017 02:50
[2017-04-22 03:01] VITALS: BP 139/91
[2017-04-22 06:07] LABS: BASO # 0.1 x10^3/uL (0.0-0.2); BASO % 1 % (0-3); EOS % 1 % (0-3); HEMATOCRIT 36.3 % (36.0-47.0); HEMOGLOBIN 11.9 g/dL (12.0-15.5); LYMPH # 1.4 x10^3/uL (1.0-4.8); LYMPH % 26 % (24-48); MEAN CORPUSCULAR HEMOGLOBIN 30 pg (25-35); MEAN CORPUSCULAR HGB CONC 33 g/dL (31-37); MEAN CORPUSCULAR VOLUME 90 fL (79-100); MONO % 6 % (0-9); NEUT % 66 % (31-73); PLATELET COUNT 282 x10^3/uL (140-400); RED BLOOD COUNT 4.04 x10^6/uL (3.50-5.40); WHITE BLOOD COUNT 5.6 x10^3/uL (4.0-11.0)
[2017-04-22 06:36] LABS: ALBUMIN 2.6 g/dL (3.4-5.0); ALBUMIN/GLOBULIN RATIO 0.9 (1.0-1.7); CALCIUM 8.2 mg/dL (8.5-10.1); CREATININE 0.8 mg/dL (0.6-1.0); GFR 108.5; POTASSIUM 4.6 mmol/L (3.5-5.1); TOTAL BILIRUBIN 0.9 mg/dL (0.2-1.0); TOTAL PROTEIN 5.6 g/dL (6.4-8.2)
[2017-04-22 07:00] VITALS: BP 151/100
[2017-04-22] MEDS: INSULIN ASPART 300 UNITS/3 ML INSULN.PEN SQ SCH ×3 (07:54→17:18)
[2017-04-22] MEDS ORDERED: INSULIN ASPART 300 UNITS/3 ML INSULN.PEN SQ ONE (08:00)
[2017-04-22] MEDS ORDERED: SINCALIDE IV ONE (08:00)
[2017-04-22] MEDS ORDERED: NORMAL SALINE IV ONE (08:00)
[2017-04-22] MEDS: PANTOPRAZOLE 40 MG TABLET.DR. PO SCH (09:21)
[2017-04-22] MEDS: MORPHINE SULFATE 4 MG/ML DISP.SYRIN. IV PRN ×3 (09:28→21:04)
--- NOTE | 2017-04-22 09:29 | RAD ---
Radionuclide hepatobiliary scan, 04/22/2017: History: Right upper quadrant pain Following IV injection of 5.5 mCi of technetium 99m Choletec there was prompt uptake of the radionuclide from the blood stream by the liver. Bile duct activity is evident at 10 minutes. Small bowel activity is evident at 15 minutes. At 1 hour a small amount of gallbladder activity became evident. Additional imaging was then performed following IV injection of 1.0 mcg of cholecystokinin. The gallbladder ejection fraction was calculated at 8%. IMPRESSION: 1. No evidence of cystic duct or common bile duct obstruction. 2. Decreased gallbladder ejection fraction of 8%.
--- NOTE | 2017-04-22 10:12 | RAD ---
CT of the head without contrast, 04/22/2017: History: Headache The ventricles are within normal limits in size. There is no shift of the midline structures. There is no evidence of acute intracranial hemorrhage or mass effect. IMPRESSION: No acute intracranial abnormality is detected. PQRS Compliance Statement: One or more of the following individualized dose reduction techniques were utilized for this examination: 1. Automated exposure control 2. Adjustment of the mA and/or kV according to patient size 3. Use of iterative reconstruction technique
--- NOTE | 2017-04-22 10:27 | PDOC ---
Subjective: Subjective: Upper abd pain and vomiting earlier. Tolerating water now. Objective: Vital Signs: Vital Signs Date Time Temp Pulse Resp B/P (MAP) Pulse Ox O2 Delivery O2 Flow Rate FiO2 04/22/17 09:59 100 Room Air 04/22/17 07:00 98.0 107 18 151/100 (117) 98.0 Labs: Laboratory Tests Test 04/21/17 11:43 04/21/17 15:29 04/21/17 21:02 04/22/17 05:50 Glucose (Fingerstick) 290 mg/dL 161 mg/dL 402 mg/dL White Blood Count 5.6 x10^3/uL Red Blood Count 4.04 x10^6/uL Hemoglobin 11.9 g/dL Hematocrit 36.3 % Mean Corpuscular Volume 90 fL Mean Corpuscular Hemoglobin 30 pg Mean Corpuscular Hemoglobin Concent 33 g/dL Red Cell Distribution Width 13.0 % Platelet Count 282 x10^3/uL Neutrophils (%) (Auto) 66 % Lymphocytes (%) (Auto) 26 % Monocytes (%) (Auto) 6 % Eosinophils (%) (Auto) 1 % Basophils (%) (Auto) 1 % Neutrophils # (Auto) 3.7 x10^3uL Lymphocytes # (Auto) 1.4 x10^3/uL Monocytes # (Auto) 0.3 x10^3/uL Eosinophils # (Auto) 0.1 x10^3/uL Basophils # (Auto) 0.1 x10^3/uL Sodium Level 134 mmol/L Potassium Level 4.6 mmol/L Chloride Level 98 mmol/L Carbon Dioxide Level 22 mmol/L Anion Gap 14 Blood Urea Nitrogen 11 mg/dL Creatinine 0.8 mg/dL Estimated GFR (Cockcroft-Gault) 108.5 BUN/Creatinine Ratio 14 Glucose Level 489 mg/dL Calcium Level 8.2 mg/dL Total Bilirubin 0.9 mg/dL Aspartate Amino Transf (AST/SGOT) 95 U/L Alanine Aminotransferase (ALT/SGPT) 141 U/L Alkaline Phosphatase 118 U/L Total Protein 5.6 g/dL Albumin 2.6 g/dL Albumin/Globulin Ratio 0.9 Test 04/22/17 07:05 Glucose (Fingerstick) 418 mg/dL Imaging: PIP[facility] 04/22/17 IMPRESSION: 1. No evidence of cystic duct or common bile duct obstruction. 2. Decreased gallbladder ejection fraction of 8%. Head CT 04/22/17 IMPRESSION: No acute intracranial abnormality is detected. PE: GEN: NAD LUNGS: clear HEART: tachycardic ABD: epigastric to RUQ tenderness to light touch NEURO/PSYCH: A & O 3 A/P: Epigastric/RUQ pain, n/v -admitted w/ DKA -had cardiac eval for CP and elevated troponin -h/o GERD w/o previous EGD, on PO PPI here -h/o pancreatitis -elevated LFTs w/ previous liver biopsy and neg Hep panel -abd US w/ GB wall thickening, PIPIDA as above -surgery is following ---> poor surgical candidate w/ uncontrolled DM/HTN -- Ongoing abd pain w/ n/v. Abnormal GB imaging as above, await surgical thoughts. Suspect diabetic gastroparesis playing a part as well. MACKENZIE HOGAN Apr 22, 2017 10:27
--- NOTE | 2017-04-22 10:43 | PDOC ---
MAURA DEGROOT ANNEALING FURNACE OPERATOR 04/22/17 1043: SURGICAL PROGRESS NOTE Subjective pain is a 9, RUQ worsening symptoms with CCK n/v Vital Signs Vital Signs Date Time Temp Pulse Resp B/P (MAP) Pulse Ox O2 Delivery O2 Flow Rate FiO2 04/22/17 09:59 100 Room Air 04/22/17 07:00 98.0 107 18 151/100 (117) 98.0 I&O Intake and Output 04/22/17 06:59 Intake Total 1080 ml Balance 1080 ml Intake Oral 1080 ml # Voids 8 General: Alert, Oriented X3, Cooperative, No acute distress Abdomen: Soft, Other (RUQ pain ) Labs Laboratory Tests Test 04/20/17 11:29 04/20/17 16:43 04/20/17 20:59 04/21/17 06:22 Glucose (Fingerstick) 139 mg/dL (70-99) 297 mg/dL (70-99) 317 mg/dL (70-99) 54 mg/dL (70-99) Test 04/21/17 07:01 04/21/17 11:43 04/21/17 15:29 04/21/17 21:02 Glucose (Fingerstick) 148 mg/dL (70-99) 290 mg/dL (70-99) 161 mg/dL (70-99) 402 mg/dL (70-99) Test 04/22/17 05:50 04/22/17 07:05 White Blood Count 5.6 x10^3/uL (4.0-11.0) Red Blood Count 4.04 x10^6/uL (3.50-5.40) Hemoglobin 11.9 g/dL (12.0-15.5) Hematocrit 36.3 % (36.0-47.0) Mean Corpuscular Volume 90 fL (79-100) Mean Corpuscular Hemoglobin 30 pg (25-35) Mean Corpuscular Hemoglobin Concent 33 g/dL (31-37) Red Cell Distribution Width 13.0 % (11.5-14.5) Platelet Count 282 x10^3/uL (140-400) Neutrophils (%) (Auto) 66 % (31-73) Lymphocytes (%) (Auto) 26 % (24-48) Monocytes (%) (Auto) 6 % (0-9) Eosinophils (%) (Auto) 1 % (0-3) Basophils (%) (Auto) 1 % (0-3) Neutrophils # (Auto) 3.7 x10^3uL (1.8-7.7) Lymphocytes # (Auto) 1.4 x10^3/uL (1.0-4.8) Monocytes # (Auto) 0.3 x10^3/uL (0.0-1.1) Eosinophils # (Auto) 0.1 x10^3/uL (0.0-0.7) Basophils # (Auto) 0.1 x10^3/uL (0.0-0.2) Sodium Level 134 mmol/L (136-145) Potassium Level 4.6 mmol/L (3.5-5.1) Chloride Level 98 mmol/L (98-107) Carbon Dioxide Level 22 mmol/L (21-32) Anion Gap 14 (6-14) Blood Urea Nitrogen 11 mg/dL (7-20) Creatinine 0.8 mg/dL (0.6-1.0) Estimated GFR (Cockcroft-Gault) 108.5 BUN/Creatinine Ratio 14 (6-20) Glucose Level 489 mg/dL (70-99) Calcium Level 8.2 mg/dL (8.5-10.1) Total Bilirubin 0.9 mg/dL (0.2-1.0) Aspartate Amino Transf (AST/SGOT) 95 U/L (15-37) Alanine Aminotransferase (ALT/SGPT) 141 U/L (14-59) Alkaline Phosphatase 118 U/L (46-116) Total Protein 5.6 g/dL (6.4-8.2) Albumin 2.6 g/dL (3.4-5.0) Albumin/Globulin Ratio 0.9 (1.0-1.7) Glucose (Fingerstick) 418 mg/dL (70-99) Laboratory Tests Test 04/21/17 11:43 04/21/17 15:29 04/21/17 21:02 04/22/17 05:50 Glucose (Fingerstick) 290 mg/dL (70-99) 161 mg/dL (70-99) 402 mg/dL (70-99) White Blood Count 5.6 x10^3/uL (4.0-11.0) Red Blood Count 4.04 x10^6/uL (3.50-5.40) Hemoglobin 11.9 g/dL (12.0-15.5) Hematocrit 36.3 % (36.0-47.0) Mean Corpuscular Volume 90 fL (79-100) Mean Corpuscular Hemoglobin 30 pg (25-35) Mean Corpuscular Hemoglobin Concent 33 g/dL (31-37) Red Cell Distribution Width 13.0 % (11.5-14.5) Platelet Count 282 x10^3/uL (140-400) Neutrophils (%) (Auto) 66 % (31-73) Lymphocytes (%) (Auto) 26 % (24-48) Monocytes (%) (Auto) 6 % (0-9) Eosinophils (%) (Auto) 1 % (0-3) Basophils (%) (Auto) 1 % (0-3) Neutrophils # (Auto) 3.7 x10^3uL (1.8-7.7) Lymphocytes # (Auto) 1.4 x10^3/uL (1.0-4.8) Monocytes # (Auto) 0.3 x10^3/uL (0.0-1.1) Eosinophils # (Auto) 0.1 x10^3/uL (0.0-0.7) Basophils # (Auto) 0.1 x10^3/uL (0.0-0.2) Sodium Level 134 mmol/L (136-145) Potassium Level 4.6 mmol/L (3.5-5.1) Chloride Level 98 mmol/L (98-107) Carbon Dioxide Level 22 mmol/L (21-32) Anion Gap 14 (6-14) Blood Urea Nitrogen 11 mg/dL (7-20) Creatinine 0.8 mg/dL (0.6-1.0) Estimated GFR (Cockcroft-Gault) 108.5 BUN/Creatinine Ratio 14 (6-20) Glucose Level 489 mg/dL (70-99) Calcium Level 8.2 mg/dL (8.5-10.1) Total Bilirubin 0.9 mg/dL (0.2-1.0) Aspartate Amino Transf (AST/SGOT) 95 U/L (15-37) Alanine Aminotransferase (ALT/SGPT) 141 U/L (14-59) Alkaline Phosphatase 118 U/L (46-116) Total Protein 5.6 g/dL (6.4-8.2) Albumin 2.6 g/dL (3.4-5.0) Albumin/Globulin Ratio 0.9 (1.0-1.7) Test 04/22/17 07:05 Glucose (Fingerstick) 418 mg/dL (70-99) Problem List Problems Medical Problems: (1) Atypical chest pain Status: Acute (2) DKA (diabetic ketoacidoses) Status: Acute (3) Tachycardia Status: Acute Assessment/Plan biliary dyskinesia--EF 8%, reproduction of symptoms with CCK dm, uncontrolled will review with Dr Vegas poor surgical candidate Problems: LIZA VEGAS MD 04/22/17 1733: SURGICAL PROGRESS NOTE Assessment/Plan Pt seen and examined. Agree with Ms. Degroot's note Pt with c/o persistent RUQ pain, sitting up in bed abd soft, mild TTP RUQ d/w pt and pt's SO would recommend lap armando with grams, but favor improvement in Glu control and HTN control. Ideally, after a few weeks. will follow Problems: MAURA DEGROOT APRN Apr 22, 2017 10:43 LIZA VEGAS MD Apr 22, 2017 17:33
[2017-04-22 11:00] VITALS: BP 142/96
--- NOTE | 2017-04-22 12:14 | PDOC ---
PROGRESS NOTES Chief Complaint Chief Complaint CC: dka DKA present on admission currently hyperglycemic Acute abdominal pain, most likely due to gallbladder related, HIDA scan ordered. Hypertension, likely due to intractable pain. Plan Home dose Levemir of has been decreased due to decreased oral intake Pain control with IV morphine and when necessary Dilaudid as needed HIDA scan showed hypokinesia general surgery and gastroenterology following. Appreciate their input possible cholecystectomy. Hypertension is not controlled patient is getting when necessary IV labetalol as needed basis Labs reviewed. History of Present Illness History of Present Illness Intractable abdominal pain, present in the epigastric region rated as 8 out of 10 not getting better with current regimen. Vitals Vitals Vital Signs Date Time Temp Pulse Resp B/P (MAP) Pulse Ox O2 Delivery O2 Flow Rate FiO2 04/22/17 11:00 97.9 109 18 142/96 (111) 98 Room Air 97.9 Physical Exam General: Alert, Oriented X3, Cooperative, No acute distress Heart: Regular rate, Normal S1, Normal S2, Other (no significant murmurs, no gallops, clicks or rubs, + chest wall tenderness left and right of sternum) Lungs: Clear, Other (no wheezes or crackles) Abdomen: Soft, Other (RUQ pain ) Extremities: No clubbing, No cyanosis Skin: No rashes, No breakdown Labs LABS Laboratory Tests Test 04/21/17 15:29 04/21/17 21:02 04/22/17 05:50 04/22/17 07:05 Glucose (Fingerstick) 161 mg/dL (70-99) 402 mg/dL (70-99) 418 mg/dL (70-99) White Blood Count 5.6 x10^3/uL (4.0-11.0) Red Blood Count 4.04 x10^6/uL (3.50-5.40) Hemoglobin 11.9 g/dL (12.0-15.5) Hematocrit 36.3 % (36.0-47.0) Mean Corpuscular Volume 90 fL (79-100) Mean Corpuscular Hemoglobin 30 pg (25-35) Mean Corpuscular Hemoglobin Concent 33 g/dL (31-37) Red Cell Distribution Width 13.0 % (11.5-14.5) Platelet Count 282 x10^3/uL (140-400) Neutrophils (%) (Auto) 66 % (31-73) Lymphocytes (%) (Auto) 26 % (24-48) Monocytes (%) (Auto) 6 % (0-9) Eosinophils (%) (Auto) 1 % (0-3) Basophils (%) (Auto) 1 % (0-3) Neutrophils # (Auto) 3.7 x10^3uL (1.8-7.7) Lymphocytes # (Auto) 1.4 x10^3/uL (1.0-4.8) Monocytes # (Auto) 0.3 x10^3/uL (0.0-1.1) Eosinophils # (Auto) 0.1 x10^3/uL (0.0-0.7) Basophils # (Auto) 0.1 x10^3/uL (0.0-0.2) Sodium Level 134 mmol/L (136-145) Potassium Level 4.6 mmol/L (3.5-5.1) Chloride Level 98 mmol/L (98-107) Carbon Dioxide Level 22 mmol/L (21-32) Anion Gap 14 (6-14) Blood Urea Nitrogen 11 mg/dL (7-20) Creatinine 0.8 mg/dL (0.6-1.0) Estimated GFR (Cockcroft-Gault) 108.5 BUN/Creatinine Ratio 14 (6-20) Glucose Level 489 mg/dL (70-99) Calcium Level 8.2 mg/dL (8.5-10.1) Total Bilirubin 0.9 mg/dL (0.2-1.0) Aspartate Amino Transf (AST/SGOT) 95 U/L (15-37) Alanine Aminotransferase (ALT/SGPT) 141 U/L (14-59) Alkaline Phosphatase 118 U/L (46-116) Total Protein 5.6 g/dL (6.4-8.2) Albumin 2.6 g/dL (3.4-5.0) Albumin/Globulin Ratio 0.9 (1.0-1.7) Assessment and Plan Assessmemt and Plan Problems Medical Problems: (1) Atypical chest pain Status: Acute (2) DKA (diabetic ketoacidoses) Status: Acute (3) Tachycardia Status: Acute Problems: Comment Review of Relevant I have reviewed the following items cristela (where applicable) has been applied. Labs Laboratory Tests Test 04/20/17 16:43 04/20/17 20:59 04/21/17 06:22 04/21/17 07:01 Glucose (Fingerstick) 297 mg/dL (70-99) 317 mg/dL (70-99) 54 mg/dL (70-99) 148 mg/dL (70-99) Test 04/21/17 11:43 04/21/17 15:29 04/21/17 21:02 04/22/17 05:50 Glucose (Fingerstick) 290 mg/dL (70-99) 161 mg/dL (70-99) 402 mg/dL (70-99) White Blood Count 5.6 x10^3/uL (4.0-11.0) Red Blood Count 4.04 x10^6/uL (3.50-5.40) Hemoglobin 11.9 g/dL (12.0-15.5) Hematocrit 36.3 % (36.0-47.0) Mean Corpuscular Volume 90 fL (79-100) Mean Corpuscular Hemoglobin 30 pg (25-35) Mean Corpuscular Hemoglobin Concent 33 g/dL (31-37) Red Cell Distribution Width 13.0 % (11.5-14.5) Platelet Count 282 x10^3/uL (140-400) Neutrophils (%) (Auto) 66 % (31-73) Lymphocytes (%) (Auto) 26 % (24-48) Monocytes (%) (Auto) 6 % (0-9) Eosinophils (%) (Auto) 1 % (0-3) Basophils (%) (Auto) 1 % (0-3) Neutrophils # (Auto) 3.7 x10^3uL (1.8-7.7) Lymphocytes # (Auto) 1.4 x10^3/uL (1.0-4.8) Monocytes # (Auto) 0.3 x10^3/uL (0.0-1.1) Eosinophils # (Auto) 0.1 x10^3/uL (0.0-0.7) Basophils # (Auto) 0.1 x10^3/uL (0.0-0.2) Sodium Level 134 mmol/L (136-145) Potassium Level 4.6 mmol/L (3.5-5.1) Chloride Level 98 mmol/L (98-107) Carbon Dioxide Level 22 mmol/L (21-32) Anion Gap 14 (6-14) Blood Urea Nitrogen 11 mg/dL (7-20) Creatinine 0.8 mg/dL (0.6-1.0) Estimated GFR (Cockcroft-Gault) 108.5 BUN/Creatinine Ratio 14 (6-20) Glucose Level 489 mg/dL (70-99) Calcium Level 8.2 mg/dL (8.5-10.1) Total Bilirubin 0.9 mg/dL (0.2-1.0) Aspartate Amino Transf (AST/SGOT) 95 U/L (15-37) Alanine Aminotransferase (ALT/SGPT) 141 U/L (14-59) Alkaline Phosphatase 118 U/L (46-116) Total Protein 5.6 g/dL (6.4-8.2) Albumin 2.6 g/dL (3.4-5.0) Albumin/Globulin Ratio 0.9 (1.0-1.7) Test 04/22/17 07:05 Glucose (Fingerstick) 418 mg/dL (70-99) Laboratory Tests Test 04/21/17 15:29 04/21/17 21:02 04/22/17 05:50 04/22/17 07:05 Glucose (Fingerstick) 161 mg/dL (70-99) 402 mg/dL (70-99) 418 mg/dL (70-99) White Blood Count 5.6 x10^3/uL (4.0-11.0) Red Blood Count 4.04 x10^6/uL (3.50-5.40) Hemoglobin 11.9 g/dL (12.0-15.5) Hematocrit 36.3 % (36.0-47.0) Mean Corpuscular Volume 90 fL (79-100) Mean Corpuscular Hemoglobin 30 pg (25-35) Mean Corpuscular Hemoglobin Concent 33 g/dL (31-37) Red Cell Distribution Width 13.0 % (11.5-14.5) Platelet Count 282 x10^3/uL (140-400) Neutrophils (%) (Auto) 66 % (31-73) Lymphocytes (%) (Auto) 26 % (24-48) Monocytes (%) (Auto) 6 % (0-9) Eosinophils (%) (Auto) 1 % (0-3) Basophils (%) (Auto) 1 % (0-3) Neutrophils # (Auto) 3.7 x10^3uL (1.8-7.7) Lymphocytes # (Auto) 1.4 x10^3/uL (1.0-4.8) Monocytes # (Auto) 0.3 x10^3/uL (0.0-1.1) Eosinophils # (Auto) 0.1 x10^3/uL (0.0-0.7) Basophils # (Auto) 0.1 x10^3/uL (0.0-0.2) Sodium Level 134 mmol/L (136-145) Potassium Level 4.6 mmol/L (3.5-5.1) Chloride Level 98 mmol/L (98-107) Carbon Dioxide Level 22 mmol/L (21-32) Anion Gap 14 (6-14) Blood Urea Nitrogen 11 mg/dL (7-20) Creatinine 0.8 mg/dL (0.6-1.0) Estimated GFR (Cockcroft-Gault) 108.5 BUN/Creatinine Ratio 14 (6-20) Glucose Level 489 mg/dL (70-99) Calcium Level 8.2 mg/dL (8.5-10.1) Total Bilirubin 0.9 mg/dL (0.2-1.0) Aspartate Amino Transf (AST/SGOT) 95 U/L (15-37) Alanine Aminotransferase (ALT/SGPT) 141 U/L (14-59) Alkaline Phosphatase 118 U/L (46-116) Total Protein 5.6 g/dL (6.4-8.2) Albumin 2.6 g/dL (3.4-5.0) Albumin/Globulin Ratio 0.9 (1.0-1.7) Microbiology 04/17/17 Urine Culture - Final, Complete 04/17/17 Urine Culture Result 1 (CEE) - Final, Complete Medications Current Medications Sodium Chloride 1,000 ml @ 100 mls/hr Q10H IV ; Start 04/17/17 at 19:22; Stop at 05:19; Status DC Ondansetron HCl (Zofran) 8 mg 1X ONCE IV Last administered on 04/17/17t 19:43; Start 04/17/17 at 19:30; Stop 04/17/17 at 19:31; Status DC Aspirin (Ralph Aspirin) 325 mg 1X ONCE PO Last administered on 04/17/17 19:45 ; Start 04/17/17 at 19:30; Stop 04/17/17 at 19:31; Status DC Morphine Sulfate 5 mg 1X ONCE IV Last administered on 04/17/17 19:46; Start at 19:30; Stop 04/17/17 at 19:31; Status DC Sodium Chloride 1,000 ml @ 1,000 mls/hr 1X ONCE IV Last administered on 19:35; Start 04/17/17 at 19:30; Stop 04/17/17 at 20:29; Status DC Insulin Human Regular 150 unit/ Sodium Chloride 151.5 ml @ 0 mls/hr CONT PRN PRN IV PER PROTOCOL Last administered on 04/17/17 20:43; Start 04/17/17 at 20:15 Potassium Chloride 100 ml @ 100 mls/hr PRN Q1HR PRN IV SEE COMMENTS; Start 04/17/17 at 20:15; Stop 04/18/17 at 05:19; Status DC Potassium Chloride 100 ml @ 100 mls/hr PRN Q1HR PRN IV SEE COMMENTS; Start 04/17/17 at 20:15; Stop 04/18/17 at 05:19; Status DC Potassium Chloride 100 ml @ 100 mls/hr PRN Q1HR PRN IV SEE COMMENTS; Start 04/17/17 at 20:15; Stop 04/18/17 at 05:19; Status DC Insulin Human Regular 150 ml @ As Directed STK-MED ONCE IV ; Start 04/17/17 at 20:32; Stop 04/17/17 at 20:33; Status DC Sodium Chloride 1,000 ml @ 1,000 mls/hr 1X ONCE IV Last administered on 20:47; Start 04/17/17 at 21:00; Stop 04/17/17 at 21:59; Status DC Ondansetron HCl (Zofran) 4 mg PRN Q8HRS PRN IV NAUSEA/VOMITING Last administered on 04/18/17 17:21; Start 04/17/17 at 21:15; Stop 04/18/17 at 21:14; Status DC Morphine Sulfate 4 mg PRN Q2HR PRN IV SEVERE PAIN Last administered on 18:46; Start 04/17/17 at 21:15; Stop 04/18/17 at 21:14; Status DC Sodium Chloride 1,000 ml @ 150 mls/hr 1X ONCE IV ; Start 04/17/17 at 21:30; Stop 04/18/17 at 04:09; Status DC Sodium Chloride 1,000 ml @ 250 mls/hr Q4H IV Last administered on 04/17/17 22: 28; Start 04/17/17 at 23:00; Stop 04/18/17 at 00:04; Status DC Insulin Aspart (NovoLOG) 0-9 UNITS TIDWMEALS SQ Last administered on 04/22/17 12:04; Start 04/18/17 at 08:00 Dextrose (Dextrose 50%-Water Syringe) 12.5 gm PRN Q15MIN PRN IV SEE COMMENTS Last administered on 04/18/17 21:16; Start 04/18/17 at 00:00 Potassium Chloride 100 ml @ 100 mls/hr PRN Q1HR PRN IV SEE COMMENTS Last administered on 04/18/17 01:10; Start 04/18/17 at 00:00; Stop 04/18/17 at 05:19; Status DC Dextrose/Sodium Chloride 1,000 ml @ 250 mls/hr Q4H IV Last administered on 04/18 03:56; Start 04/18/17 at 00:05; Stop 04/18/17 at 05:19; Status DC Sodium Chloride 1,000 ml @ 125 mls/hr Q8H IV Last administered on 04/20/17 07: 29; Start 04/18/17 at 05:30; Stop 04/21/17 at 21:37; Status DC Sodium Chloride 500 ml @ 500 mls/hr 1X ONCE IV Last administered on 04/18/17 10:30; Start 04/18/17 at 10:30; Stop 04/18/17 at 11:29; Status DC Insulin Detemir (Levemir) 10 units 1X ONCE SQ Last administered on 04/18/17 12 :42; Start 04/18/17 at 11:45; Stop 04/18/17 at 11:46; Status DC Prochlorperazine Edisylate (Compazine) 10 mg PRN Q8HRS PRN IV NAUSEA/VOMITING Last administered on 04/21/17 10:50; Start 04/18/17 at 12:15 Insulin Detemir (Levemir) 25 units HS SQ Last administered on 04/20/17 21:00; Start 04/18/17 at 21:00; Stop 04/21/17 at 18:35; Status DC Insulin Aspart (NovoLOG) 10 units 1X ONCE SQ Last administered on 04/18/17 14: 00; Start 04/18/17 at 14:00; Stop 04/18/17 at 14:01; Status DC Morphine Sulfate 4 mg PRN Q2HR PRN IV SEVERE PAIN Last administered on 09:28; Start 04/18/17 at 21:45 Insulin Aspart (NovoLOG) 10 units 1X ONCE SQ Last administered on 04/19/17 08: 22; Start 04/19/17 at 08:30; Stop 04/19/17 at 08:31; Status DC Famotidine (Pepcid) 20 mg 1X ONCE IVP Last administered on 04/19/17 10:10; Start 04/19/17 at 10:15; Stop 04/19/17 at 10:16; Status DC Pantoprazole Sodium (Protonix) 40 mg DAILYAC PO Last administered on 04/22/17 09:21; Start 04/19/17 at 11:30 Diphenhydramine HCl (Benadryl) 25 mg PRN Q6HRS PRN PO ITCHING Last administered on 04/21/17 21:47; Start 04/20/17 at 02:00 Acetaminophen/ Hydrocodone Bitart (Lortab 5/325) 1 tab PRN Q4HRS PRN PO PAIN Last administered on 04/21/17 16:41; Start 04/20/17 at 13:30 Hydralazine HCl (Apresoline) 10 mg 1X ONCE IVP Last administered on 04/21/17 10:41; Start 04/21/17 at 10:45; Stop 04/21/17 at 10:46; Status DC Furosemide (Lasix) 20 mg 1X ONCE IVP Last administered on 04/21/17 10:41; Start 04/21/17 at 10:45; Stop 04/21/17 at 10:46; Status DC Hydralazine HCl (Apresoline) 10 mg PRN Q4HRS PRN IVP for SBP > 160; Start at 14:00 Insulin Detemir (Levemir) 10 units 1X ONCE SQ Last administered on 04/21/17 21 :09; Start 04/21/17 at 21:00; Stop 04/21/17 at 21:01; Status DC Hydromorphone HCl (Dilaudid) 0.5 mg 1X ONCE IV Last administered on 04/21/17 18:48; Start 04/21/17 at 19:00; Stop 04/21/17 at 19:01; Status DC Labetalol HCl (Normodyne) 10 mg PRN Q4HRS PRN IVP HYPERTENSION, SEE COMMENTS Last administered on 04/21/17 21:43; Start 04/21/17 at 20:30 Acetaminophen/ Hydrocodone Bitart (Lortab 5/325) 2 tab PRN Q4HRS PRN PO PAIN Last administered on 04/22/17 09:22; Start 04/21/17 at 20:30 Sincalide 1.03 mcg/Sodium Chloride 30 ml @ 120 mls/hr 1X ONCE IV Last administered on 04/22/17 09:06; Start 04/22/17 at 08:00; Stop 04/22/17 at 08:14 ; Status DC Insulin Aspart (NovoLOG) 15 units 1X ONCE SQ Last administered on 04/22/17 09 :25; Start 04/22/17 at 08:00; Stop 04/22/17 at 08:01; Status DC Active Scripts Active Lisinopril 20 Mg Tablet 20 Mg PO DAILY Doxycycline Hyclate 100 Mg Tablet 100 Mg PO BID Levemir Flextouch (Insulin Detemir) 100 Unit/1 Ml Insuln.pen 25 Unit SQ HS 30 Days Novolog (Insulin Aspart) 100 Unit/1 Ml Cartridge 10 Units SQ TIDAC 30 Days Reported Gabapentin 300 Mg Capsule 300 Mg PO TID Vitals/I & O Vital Sign - Last 24 Hours 04/21/17 04/21/17 04/21/17 04/21/17 12:22 14:41 15:13 16:41 Temp 98.0 98.0 Pulse 98 Resp 18 B/P (MAP) 137/94 (108) Pulse Ox 97 97 97 97 O2 Delivery Room Air Room Air Room Air Room Air 04/21/17 04/21/17 04/21/17 04/21/17 17:41 18:14 18:48 19:18 Pulse Ox 97 97 97 O2 Delivery Room Air Room Air Room Air Room Air 04/21/17 04/21/17 04/21/17 04/21/17 19:50 20:00 20:49 21:43 Temp 98.2 98.2 Pulse 101 96 Resp 20 20 B/P (MAP) 166/112 (130) 175/126 Pulse Ox 98 O2 Delivery Room Air Room Air Room Air 04/21/17 04/22/17 04/22/17 04/22/17 23:08 01:03 02:03 03:01 Temp 98.1 98.4 98.1 98.4 Pulse 113 114 Resp 20 20 18 20 B/P (MAP) 135/89 (104) 139/91 (107) Pulse Ox 96 97 O2 Delivery Room Air Room Air Room Air 04/22/17 04/22/17 04/22/17 04/22/17 07:00 08:00 09:22 09:28 Temp 98.0 98.0 Pulse 107 Resp 18 B/P (MAP) 151/100 (117) Pulse Ox 100 100 100 O2 Delivery Room Air Room Air Room Air Room Air 04/22/17 04/22/17 04/22/17 09:59 10:40 11:00 Temp 97.9 97.9 Pulse 109 Resp 18 B/P (MAP) 142/96 (111) Pulse Ox 100 100 98 O2 Delivery Room Air Room Air Room Air Intake and Output 04/21/17 04/21/17 04/22/17 15:00 23:00 07:00 Intake Total 600 ml 480 ml Balance 600 ml 480 ml Nutrition Consultation Dietary Evaluation: Recommendations by RD: Protein supplementation Comments: boost glucose control tid Expected Outcomes/Goals: to meet > 75% est nutr needs Interpretation of weight loss: >1-2% in 1 week Malnutrition Findings: Food and Nutrition Intake (Sev: <50% est energy req 5days Weight Status: Appropriate MARKUS CHANG MD Apr 22, 2017 12:14
[2017-04-22 15:00] VITALS: BP 139/102
[2017-04-22] MEDS: diphenhydrAMINE HCL 25 MG CAPSULE PO PRN (17:38)
[2017-04-22 19:00] VITALS: BP 145/98
[2017-04-22] MEDS ORDERED: INSULIN DETEMIR 300 UNITS/3 ML INSULN.PEN. SQ SCH (21:00)
[2017-04-22 23:00] VITALS: BP 135/80
[2017-04-23 07:00] VITALS: BP 155/112
[2017-04-23] MEDS: PANTOPRAZOLE 40 MG TABLET.DR. PO SCH (08:30)
[2017-04-23] MEDS: HYDROcodone/APAP 5/325MG 1 TAB TABLET PO PRN (08:31)
[2017-04-23] MEDS: INSULIN ASPART 300 UNITS/3 ML INSULN.PEN SQ SCH ×2 (08:33→11:44)
[2017-04-23] MEDS: MORPHINE SULFATE 4 MG/ML DISP.SYRIN. IV PRN (09:20)
--- NOTE | 2017-04-23 10:55 | PDOC3 ---
Discharge Summary* Date of Discharge: Apr 23, 2017 Admitting Diagnosis Problems Medical Problems: (1) Atypical chest pain Status: Acute (2) DKA (diabetic ketoacidoses) Status: Acute (3) Tachycardia Status: Acute Problems: Final Diagnosis 1. DKA POA:, resolved, 2. DM type 1 3. History Asthma 4. GERD 5. Leukocytosis: WBC 12.9 6. Hypomagnesia': Resolved 7. Chest pain due to cholecystitis/DKA 8. abdominal pain : Due to chronic cholecystitis Brief Hospital Course Brief hospital course: A 21-year-old -[place] female with prior history of type 1 diabetes present to the hospital with the nausea vomiting abdominal pain, she was diagnosed with a DKA and treated as per the protocol in critical care unit. As DKA resolved, patient continued to have persistent abdominal pain , further workup showed chronic cholecystitis. She did have imaging studies such as ultrasound of the abdomen and HIDA scan and echocardiogram. 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 I did personally discuss with Dr. Vegas for surgical resection of the gallbladder, due to her uncontrolled diabetes and hypertension he is recommended to see her in the clinic and schedule surgery as an outpatient basis as patient is high risk for postsurgical complications. Risks and benefits and alternatives discussed with patient, she needs to follow up with primary care doctor and control her blood sugars and high blood pressures. Today she deemed clinically stable to go home. General alert and oriented 3. Heart S1-S2 present Lungs anterior chest clear Abdomen soft nontender no organomegaly Extremities no edema Discharge disposition home Discharge condition stable Discharge medications reviewed and reconciled. 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 Total time spent for discharge is 35 minutes for patient education counseling and coordination of care care discussed with general surgery at the time of discharge. CONDITION AT DISCHARGE: Improved, Stable Scheduled Doxycycline Hyclate (Doxycycline Hyclate), 100 MG PO BID Gabapentin (Gabapentin), 300 MG PO TID, (Reported) Insulin Aspart (Novolog), 10 UNITS SQ TIDAC Insulin Detemir (Levemir Flextouch), 25 UNIT SQ HS Lisinopril (Lisinopril), 20 MG PO DAILY Time Spent Total time spent with patient [] minutes for coordination of care, counseling, and education. VASIREDDI,MARKUS R MD Apr 23, 2017 10:55
[2017-04-23] MEDS ORDERED: HYDR-2766 PO (10:57)
[2017-04-23] MEDS ORDERED: INSU100I27 SQ (10:57)
[2017-04-23 11:00] VITALS: BP 157/115
--- NOTE | 2017-04-23 12:23 | PDOC ---
Subjective: Subjective: Still feels bad but thinks okay to DC. Tolerating PO. No n/v but pain is ongoing. Objective: Vital Signs: Vital Signs Date Time Temp Pulse Resp B/P (MAP) Pulse Ox O2 Delivery O2 Flow Rate FiO2 04/23/17 11:00 98.3 90 18 157/115 (129) 97 Room Air 98.3 Labs: Laboratory Tests Test 04/22/17 17:01 04/22/17 21:06 04/23/17 07:11 04/23/17 11:39 Glucose (Fingerstick) 320 mg/dL 277 mg/dL 156 mg/dL 99 mg/dL PE: GEN: NAD HEART: RUQ soreness NEURO/PSYCH: A & O 3 A/P: Epigastric/RUQ pain, n/v -admitted w/ DKA -h/o GERD w/o previous EGD, on PO PPI here -h/o pancreatitis -elevated LFTs w/ previous liver biopsy and neg Hep panel -abd US w/ GB wall thickening, PIPIDA w/ low GB EF 8% -- DC plans today, to follow-up for outpt cholecystectomy when has better HTN and DM control. MACKENZIE HOGAN Apr 23, 2017 12:23
--- NOTE | 2017-04-23 13:35 | PDOC ---
SURGICAL PROGRESS NOTE Subjective continued pain nausea, low appetite Vital Signs Vital Signs Date Time Temp Pulse Resp B/P (MAP) Pulse Ox O2 Delivery O2 Flow Rate FiO2 04/23/17 11:00 98.3 90 18 157/115 (129) 97 Room Air 98.3 I&O Intake and Output 04/23/17 07:00 Intake Total 650 ml Output Total 600 ml Balance 50 ml Intake Oral 650 ml Output Urine Total 600 ml General: Alert, Oriented X3, Cooperative, No acute distress Abdomen: Soft, Other (RUQ pain) Labs Laboratory Tests Test 04/21/17 15:29 04/21/17 21:02 04/22/17 05:50 04/22/17 07:05 Glucose (Fingerstick) 161 mg/dL (70-99) 402 mg/dL (70-99) 418 mg/dL (70-99) White Blood Count 5.6 x10^3/uL (4.0-11.0) Red Blood Count 4.04 x10^6/uL (3.50-5.40) Hemoglobin 11.9 g/dL (12.0-15.5) Hematocrit 36.3 % (36.0-47.0) Mean Corpuscular Volume 90 fL (79-100) Mean Corpuscular Hemoglobin 30 pg (25-35) Mean Corpuscular Hemoglobin Concent 33 g/dL (31-37) Red Cell Distribution Width 13.0 % (11.5-14.5) Platelet Count 282 x10^3/uL (140-400) Neutrophils (%) (Auto) 66 % (31-73) Lymphocytes (%) (Auto) 26 % (24-48) Monocytes (%) (Auto) 6 % (0-9) Eosinophils (%) (Auto) 1 % (0-3) Basophils (%) (Auto) 1 % (0-3) Neutrophils # (Auto) 3.7 x10^3uL (1.8-7.7) Lymphocytes # (Auto) 1.4 x10^3/uL (1.0-4.8) Monocytes # (Auto) 0.3 x10^3/uL (0.0-1.1) Eosinophils # (Auto) 0.1 x10^3/uL (0.0-0.7) Basophils # (Auto) 0.1 x10^3/uL (0.0-0.2) Sodium Level 134 mmol/L (136-145) Potassium Level 4.6 mmol/L (3.5-5.1) Chloride Level 98 mmol/L (98-107) Carbon Dioxide Level 22 mmol/L (21-32) Anion Gap 14 (6-14) Blood Urea Nitrogen 11 mg/dL (7-20) Creatinine 0.8 mg/dL (0.6-1.0) Estimated GFR (Cockcroft-Gault) 108.5 BUN/Creatinine Ratio 14 (6-20) Glucose Level 489 mg/dL (70-99) Calcium Level 8.2 mg/dL (8.5-10.1) Total Bilirubin 0.9 mg/dL (0.2-1.0) Aspartate Amino Transf (AST/SGOT) 95 U/L (15-37) Alanine Aminotransferase (ALT/SGPT) 141 U/L (14-59) Alkaline Phosphatase 118 U/L (46-116) Total Protein 5.6 g/dL (6.4-8.2) Albumin 2.6 g/dL (3.4-5.0) Albumin/Globulin Ratio 0.9 (1.0-1.7) Test 04/22/17 11:41 04/22/17 17:01 04/22/17 21:06 04/23/17 07:11 Glucose (Fingerstick) 225 mg/dL (70-99) 320 mg/dL (70-99) 277 mg/dL (70-99) 156 mg/dL (70-99) Test 04/23/17 11:39 Glucose (Fingerstick) 99 mg/dL (70-99) Laboratory Tests Test 04/22/17 17:01 04/22/17 21:06 04/23/17 07:11 04/23/17 11:39 Glucose (Fingerstick) 320 mg/dL (70-99) 277 mg/dL (70-99) 156 mg/dL (70-99) 99 mg/dL (70-99) Problem List Problems Medical Problems: (1) Atypical chest pain Status: Acute (2) DKA (diabetic ketoacidoses) Status: Acute (3) Tachycardia Status: Acute Assessment/Plan biliary dyskinesia uncontrolled DM, HTN discussed cholecystotomy tube as option for 6 weeks until HTN, DM more controlled, she has decided against that option FU in clinic with pablito Johnson once comorbidities improved Problems: MAURA DEGR[employer]OT [employer] Apr 23, 2017 13:35
== END 2017-04-23 13:00 | disposition home or self-care (01) | DRG 639 ==
LOC: ER 18:52 → 1 WEST ICU 20:38 → 6 SOUTH 04-18 18:46
PROVIDERS: ADMIT Internal Medicine; ATTEND Internal Medicine
DX: E10.10 Type 1 diabetes mellitus with ketoacidosis without coma (principal); E10.43 Type 1 diabetes mellitus with diabetic autonomic (poly)neuropathy; E83.42 Hypomagnesemia; K21.9 Gastro-esophageal reflux disease without esophagitis; J45.909 Unspecified asthma, uncomplicated; I10 Essential (primary) hypertension; K31.84 Gastroparesis; K81.1 Chronic cholecystitis; R07.89 Other chest pain; E77.8 Other disorders of glycoprotein metabolism; E86.0 Dehydration; K76.9 Liver disease, unspecified; K82.8 Other specified diseases of gallbladder; Z79.4 Long term (current) use of insulin; Z83.3 Family history of diabetes mellitus; Z79.899 Other long term (current) drug therapy; Z79.1 Long term (current) use of non-steroidal anti-inflammatories (NSAID); Z79.82 Long term (current) use of aspirin
CPT/HCPCS: 36415; 70450; 71010; 76700; 78226; 80048; 80053; 80076; 81001; 81025; 82553; 82962; 83605; 83690; 83735; 83880; 84100; 84443; 84484; 84703; 85027; 85610; 87086; 87641; 93005; 93306; 96361; 96374; 96375; A6539; A9537; G0481; J0360; J0780; J1170; J1815; J2270; J2405; J2805; J3480; J3490; J7030; J7040; J7042; Q0163; S0028; 99285-25

== ENCOUNTER 2017-04-29 08:53 | Emergency (ER) | payer MEDICAID ==
[~2017-04-29] VITALS: Ht 160 cm; Wt 58.1 kg
[~2017-04-29 08:53] MED LIST changes: +GABA-586 PO; +HYDR-2766 PO
[2017-04-29] MEDS ORDERED: LIDOCAINE 1% / SOD BICARB 8.4% 20 ML VIAL. IJ ONE (10:00)
--- NOTE | 2017-04-29 10:01 | PHYS DOC ---
Past Medical History Past Medical History: Depression, Diabetes-Type I, GERD, Hypertension, Pancreatitis Additional Past Medical Histor: MISCARRIAGES back pain neuropathy Past Surgical History: Other Additional Past Surgical Histo: I&D abscess groin Alcohol Use: None Drug Use: None Adult General Chief Complaint Chief Complaint: ABSCESS HPI HPI Patient is a 21 year old female resents to the emergency room stating that she has an abscess behind her right ear. She states that she's had this for a few days. She also has elevated blood pressure in the emergency department which she states that she was on Lisinopril for her primary care physician took her off a few months ago. Patient also states that she has having gallbladder problems and states that that may be the reason that her blood pressure is elevated. Patient states that she does not want to be evaluated for gallbladder as she has an appointment later in the month. Review of Systems Review of Systems Constitutional: Denies fever or chills [] Eyes: Denies change in visual acuity, redness, or eye pain [] HENT: Denies nasal congestion or sore throat [] Respiratory: Denies cough or shortness of breath [] Cardiovascular: No additional information not addressed in HPI [] GI: Denies abdominal pain, nausea, vomiting, bloody stools or diarrhea [] : Denies dysuria or hematuria [] Musculoskeletal: Denies back pain or joint pain [] Integument: Denies rash or skin lesions. Abscess behind the right ear. Neurologic: Denies headache, focal weakness or sensory changes [] Endocrine: Denies polyuria or polydipsia [] Current Medications Current Medications Current Medications Medications (Trade) Dose Ordered Sig/[facility] Start Time Stop Time Status Last Admin Dose Admin Lidocaine/Sodium Bicarbonate (Buffered Lidocaine 1%) 20 ml 1X ONCE 04/29/17 10:00 04/29/17 10:01 DC 04/29/17 10:07 20 ML Allergies Allergies Allergies Coded Allergies Type Severity Reaction Last Updated Verified No Known Medication Allergies Allergy Unknown 12/31/16 Yes Physical Exam Physical Exam Constitutional: Well developed, well nourished, no acute distress, non-toxic appearance. [] HENT: Normocephalic, atraumatic, bilateral external ears normal, oropharynx moist, no oral exudates, nose normal. [] Eyes: PERRLA, EOMI, conjunctiva normal, no discharge. [] Neck: Normal range of motion, no tenderness, supple, no stridor. [] Cardiovascular:Heart rate regular rhythm, no murmur [] Lungs & Thorax: Bilateral breath sounds clear to auscultation [] Skin: Warm, dry, no erythema, no rash. Abscess behind the right ear. No drainage or discharge noted. Area appears to be fluctuant Back: No tenderness Extremities: No tenderness, no cyanosis, no clubbing, ROM intact, no edema. [] Neurologic: Alert and oriented X 3, normal motor function, normal sensory function, no focal deficits noted. [] Psychologic: Affect normal, judgement normal, mood normal. [] Current Patient Data Vital Signs Vital Signs Date Time Temp Pulse Resp B/P (MAP) Pulse Ox O2 Delivery O2 Flow Rate FiO2 04/29/17 09:39 98.9 98 20 99 Room Air 98.9 EKG EKG [] Radiology/Procedures Radiology/Procedures [] Course & Med Decision Making Course & Med Decision Making Pertinent Labs and Imaging studies reviewed. (See chart for details) She'll be discharged home in stable condition she'll be provided with return for the abscess. She'll also be provided with lisinopril due to her blood pressure being elevated. She'll be encouraged to follow-up with her primary care physician wound recheck in 3-5 days. Also recommended that she for appointment for her gallbladder issues. Patient agrees with discharge instructions, treatment regimens and follow-up recommendations. Recommended warm moist packs to the right ear area 4-5 times a day. Patient agrees with discharge instructions treatment regimens and follow-up recommendations. [] Dragon Disclaimer Dragon Disclaimer This electronic medical record was generated, in whole or in part, using a voice recognition dictation system. Departure Departure Impression: Primary Impression: Abscess Additional Impression: Hypertension Disposition: HOME, SELF-CARE Condition: STABLE Referrals: NO PCP (PCP) Patient Instructions: Abscess, [id number], Hypertension Additional Instructions: The area clean and dry. Apply warm moist packs to the area 4-5 times a day for 20 minutes at a time. Good handwashing is essential. Wash area with soap and water twice a day. He may also apply antibiotic ointment to the site. Medication as prescribed. Follow-up with your primary care physician in the next 3-5 days in regards to the abscess. Monitor your blood pressure at home. Follow-up with your surgeon for your gallbladder issues as you have an appointment. Return to emergency department sign symptoms of become worse. Scripts Lisinopril (LISINOPRIL) 20 Mg Tablet 1 TAB PO DAILY, #30 TAB 0 Refills Prov: TRA MITCHELL APRN 04/29/17 Sulfamethoxazole/Trimethoprim (BACTRIM DS TABLET) 1 Each Tablet 1 TAB PO BID, #20 TAB Prov: TRA MITCHELL APRN 04/29/17 Incision and Drainage Incision and Drainage : Site: be hind right ear Blade Size: 11 I & D Procedure: betadine prep Progress Site was cleaned with Betadine. 1% lidocaine buffered with 2 mL injected into the site with a #11 blade used to incise the area with then yellow discharge noted. Band aid was applied over the site by nursing staff. Problem Qualifiers TRA MITCHELL APRN Apr 29, 2017 10:01
[2017-04-29] MEDS ORDERED: SULF1TAB24 PO (10:28)
[2017-04-29] MEDS ORDERED: LISI-334 PO (10:28)
== END 2017-04-29 10:38 | disposition home or self-care (01) ==
LOC: ER 08:53
DX: H60.01 Abscess of right external ear (principal); E10.40 Type 1 diabetes mellitus with diabetic neuropathy, unspecified; F32.9 Major depressive disorder, single episode, unspecified; I10 Essential (primary) hypertension; K21.9 Gastro-esophageal reflux disease without esophagitis
CPT/HCPCS: 10060; 51702; 99283-25; 99284-25

== ENCOUNTER 2017-06-04 15:51 | Inpatient (IN) | payer MEDICAID ==
[~2017-06-04] VITALS: Ht 160 cm; Wt 55.8 kg
[~2017-06-04 15:51] MED LIST changes: +SULF1TAB24 PO
[2017-06-04] MEDS ORDERED: IV NORMAL SALINE 1000ML BAG 1,000 ML IV SCH ×2 (17:19→19:09)
[2017-06-04] MEDS ORDERED: METOCLOPRAMIDE HCL 10 MG/2 ML VIAL. IV ONE (17:30)
[2017-06-04] MEDS ORDERED: fentaNYL PF VIAL 100 MCG/2 ML VIAL IV PRN (17:30)
[2017-06-04 17:39] LABS: BASO # 0.1 x10^3/uL (0.0-0.2); BASO % 1 % (0-3); EOS % 1 % (0-3); HEMATOCRIT 42.7 % (36.0-47.0); LYMPH # 2.2 x10^3/uL (1.0-4.8); LYMPH % 32 % (24-48); MEAN CORPUSCULAR HEMOGLOBIN 30 pg (25-35); MEAN CORPUSCULAR HGB CONC 33 g/dL (31-37); MEAN CORPUSCULAR VOLUME 91 fL (79-100); MONO % 6 % (0-9); NEUT % 61 % (31-73); PLATELET COUNT 408 x10^3/uL (140-400); RED BLOOD COUNT 4.68 x10^6/uL (3.50-5.40); RED CELL DISTRIBUTION WIDTH 13.7 % (11.5-14.5); WHITE BLOOD COUNT 6.9 x10^3/uL (4.0-11.0)
[2017-06-04 17:40] LABS: BILIRUBIN,URINE NEGATIVE (NEG); GLUCOSE,URINE >=1000 mg/dL (NEG); NITRITE,URINE NEGATIVE (NEG); PH,URINE 5.5; PROTEIN,URINE NEGATIVE (NEG-TRACE); UROBILINOGEN,URINE 0.2 mg/dL (0.2 mg/dL)
[2017-06-04 17:53] LABS: BACTERIA,URINE FEW /HPF (0-FEW); RBC,URINE 0 /HPF (0-2); SQUAMOUS EPITHELIAL CELL,UR MOD /LPF; WBC,URINE OCC /HPF (0-4)
--- NOTE | 2017-06-04 18:13 | PHYS DOC ---
Past Medical History Past Medical History: Depression, Diabetes-Type I, GERD, Hypertension, Pancreatitis Additional Past Medical Histor: MISCARRIAGES back pain neuropathy, " GALLBLADDER PROBLEMS", chronic abd pain Past Surgical History: Other Additional Past Surgical Histo: I&D abscess groin Alcohol Use: Rarely Drug Use: None Adult General Chief Complaint Chief Complaint: NAUSEA/VOMITING/DIARRHA HPI HPI Patient is a 22 year old female who presents with complaints of vomiting and abdominal pain for the past 2 days. Patient states that her symptoms have been progressively worsening since onset. Patient has history of type 1 diabetes mellitus and chronic abdominal pain. Patient states she follows with a GI doctor , Dr. Pavon, who practices at [facility]. The patient states that she has been told that she has trouble with her gallbladder which is believed to contribute to her symptoms. Patient states however that she has been told she cannot have her gallbladder operated on until her blood pressure is controlled. The patient notes as well over the past 2 days her blood sugars have been running about 300. Patient states that she has been admitted in the past to the hospital for treatment of diabetic ketoacidosis. Patient has not been able to tolerate any oral intake over the past 2 days due to severity of symptoms. Patient states that she has been up-to-date with her insulin dosing, and states that she last received 5 units of NovoLog at 1500 today. The patient rates her abdominal pain as 10 out of 10 and states that it is in her upper abdomen and right upper quadrant. Patient has had no diarrhea or fevers associated with her symptoms. Patient has not taken any medications to help with symptoms at this time. Review of Systems Review of Systems Constitutional: Denies fever or chills [] Eyes: Denies change in visual acuity, redness, or eye pain [] HENT: Denies nasal congestion or sore throat [] Respiratory: Denies cough or shortness of breath [] Cardiovascular: Denies chest pain or edema [] GI: Abdominal pain, nausea, vomiting [] : Denies dysuria or hematuria [] Musculoskeletal: Denies back pain or joint pain [] Integument: Denies rash or skin lesions [] Neurologic: Denies headache, focal weakness or sensory changes [] Current Medications Current Medications Current Medications Medications (Trade) Dose Ordered Sig/[facility] Start Time Stop Time Status Last Admin Dose Admin Acetaminophen (Tylenol) 650 mg PRN Q6HRS PRN 06/04/17 19:15 Acetaminophen/ Hydrocodone Bitart (Lortab 10/325) 1 tab PRN Q6HRS PRN 06/04/17 19:15 06/04/17 21:19 1 TAB Al Hydroxide/Mg Hydroxide (Mylanta Plus Xs) 30 ml PRN Q3HRS PRN 06/04/17 19:15 Bisacodyl (Dulcolax Supp) 10 mg PRN DAILY PRN 06/04/17 19:15 Calcium Carbonate/ Glycine (Tums) 500 mg PRN Q3HRS PRN 06/04/17 19:15 Dextrose (Dextrose 50%-Water Syringe) 12.5 gm PRN Q15MIN PRN 06/04/17 19:15 Fentanyl Citrate (Fentanyl 2ml Vial) 50 mcg PRN Q15MIN PRN 06/04/17 17:30 06/05/17 17:29 06/04/17 18:53 50 MCG Ibuprofen (Motrin) 400 mg PRN Q6HRS PRN 06/04/17 19:15 06/04/17 21:19 400 MG Lactulose 20 gm PRN Q12HR PRN 06/04/17 19:15 Magnesium Hydroxide (Milk Of Magnesia) 2,400 mg PRN Q12HR PRN 06/04/17 19:15 Metoclopramide HCl (Reglan) 10 mg 1X ONCE 06/04/17 17:30 06/04/17 17:31 DC 06/04/17 18:50 10 MG Morphine Sulfate 2 mg PRN Q2HR PRN 06/04/17 19:15 06/04/17 21:20 2 MG Ondansetron HCl (Zofran) 4 mg PRN Q6HRS PRN 06/04/17 19:15 Oxycodone HCl (Roxicodone) 5 mg PRN Q3HRS PRN 06/04/17 19:15 Prochlorperazine (Compazine) 25 mg PRN Q12HR PRN 06/04/17 19:15 Prochlorperazine Edisylate (Compazine) 10 mg PRN TID PRN 06/04/17 19:15 Cancel Sodium Chloride 1,000 ml @ 150 mls/hr Q6H40M 06/04/17 19:09 06/05/17 02:43 06/04/17 21:20 100 MLS/HR Zolpidem Tartrate (Ambien) 5 mg PRN QHS PRN 06/04/17 19:15 06/04/17 21:18 5 MG Allergies Allergies Allergies Coded Allergies Type Severity Reaction Last Updated Verified No Known Medication Allergies Allergy Unknown 12/31/16 Yes Physical Exam Physical Exam Constitutional: Alert, afebrile, appears ill. [] HENT: Normocephalic, atraumatic, bilateral external ears normal, oropharynx moist, no oral exudates, nose normal. [] Eyes: PERRLA, EOMI, conjunctiva normal, no discharge. [] Neck: Normal range of motion, no tenderness, supple, no stridor. [] Cardiovascular:Heart rate regular rhythm, no murmur [] Lungs & Thorax: Bilateral breath sounds clear to auscultation [] Abdomen: Bowel sounds normal, soft, epigastric and right upper quadrant tenderness to palpation with guarding, no rebound tenderness, no masses, no pulsatile masses. [] Skin: Warm, dry, no erythema, no rash. [] Back: No tenderness, no CVA tenderness. [] Extremities: No tenderness, no cyanosis, no clubbing, ROM intact, no edema. [] Neurologic: Alert and oriented X 3, normal motor function, normal sensory function, no focal deficits noted. [] Current Patient Data Vital Signs Vital Signs Date Time Temp Pulse Resp B/P (MAP) Pulse Ox O2 Delivery O2 Flow Rate FiO2 06/04/17 18:56 112 20 164/113 (130) 98 Room Air 06/04/17 16:54 98.6 98.6 Lab Values Laboratory Tests Test 06/04/17 16:16 06/04/17 16:50 06/04/17 17:13 06/04/17 17:20 POC Urine HCG, Qualitative Hcg negative (Negative) Urine Collection Type Void Urine Color Straw Urine Clarity Clear Urine pH 5.5 Urine Specific [place] >=1.030 Urine Protein Negative mg/dL (NEG-TRACE) Urine Glucose (UA) >=1000 mg/dL (NEG) Urine Ketones (Stick) 15 mg/dL (NEG) Urine Blood Negative (NEG) Urine Nitrite Negative (NEG) Urine Bilirubin Negative (NEG) Urine Urobilinogen Dipstick 0.2 mg/dL (0.2 mg/dL) Urine Leukocyte Esterase Negative (NEG) Urine RBC 0 /HPF (0-2) Urine WBC Occ /HPF (0-4) Urine Squamous Epithelial Cells Mod /LPF Urine Bacteria Few /HPF (0-FEW) Glucose (Fingerstick) 358 mg/dL (70-99) H White Blood Count 6.9 x10^3/uL (4.0-11.0) Red Blood Count 4.68 x10^6/uL (3.50-5.40) Hemoglobin 14.0 g/dL (12.0-15.5) Hematocrit 42.7 % (36.0-47.0) Mean Corpuscular Volume 91 fL (79-100) Mean Corpuscular Hemoglobin 30 pg (25-35) Mean Corpuscular Hemoglobin Concent 33 g/dL (31-37) Red Cell Distribution Width 13.7 % (11.5-14.5) Platelet Count 408 x10^3/uL (140-400) H Neutrophils (%) (Auto) 61 % (31-73) Lymphocytes (%) (Auto) 32 % (24-48) Monocytes (%) (Auto) 6 % (0-9) Eosinophils (%) (Auto) 1 % (0-3) Basophils (%) (Auto) 1 % (0-3) Neutrophils # (Auto) 4.2 x10^3uL (1.8-7.7) Lymphocytes # (Auto) 2.2 x10^3/uL (1.0-4.8) Monocytes # (Auto) 0.4 x10^3/uL (0.0-1.1) Eosinophils # (Auto) 0.0 x10^3/uL (0.0-0.7) Basophils # (Auto) 0.1 x10^3/uL (0.0-0.2) Test 06/04/17 18:15 Sodium Level 137 mmol/L (136-145) Potassium Level 4.2 mmol/L (3.5-5.1) Chloride Level 102 mmol/L (98-107) Carbon Dioxide Level 28 mmol/L (21-32) Anion Gap 7 (6-14) Blood Urea Nitrogen 13 mg/dL (7-20) Creatinine 0.7 mg/dL (0.6-1.0) Estimated GFR (Cockcroft-Gault) 125.5 BUN/Creatinine Ratio 19 (6-20) Glucose Level 414 mg/dL (70-99) H Calcium Level 8.6 mg/dL (8.5-10.1) Total Bilirubin 0.7 mg/dL (0.2-1.0) Aspartate Amino Transferase (AST) 14 U/L (15-37) L Alanine Aminotransferase (ALT) 22 U/L (14-59) Alkaline Phosphatase 90 U/L (46-116) Total Protein 6.2 g/dL (6.4-8.2) L Albumin 2.9 g/dL (3.4-5.0) L Albumin/Globulin Ratio 0.9 (1.0-1.7) L Lipase 65 U/L (73-393) L Laboratory Tests 06/04/17 17:20 Laboratory Tests 06/04/17 18:15 EKG EKG Not performed [] Radiology/Procedures Radiology/Procedures 3 view acute abdominal series interpreted by me: No pulmonary infiltrates or effusions, normal cardiac silhouette, nonobstructive bowel gas pattern, moderate amount of retained stool in colon [] Course & Med Decision Making Course & Med Decision Making Pertinent Labs and Imaging studies reviewed. (See chart for details) Patient was started on IV fluids, fentanyl, and Reglan. The patient was found to have significantly elevated blood sugar. Upon reevaluation after treatment, the patient continues to complain of severe abdominal pain and is unable to tolerate any oral intake at this time. The patient will be admitted to the hospital for further symptomatic control and treatment of uncontrolled diabetes mellitus type 1. I spoke with Dr. Ortega who accepted care patient in hospital. Dragon Disclaimer Dragon Disclaimer This electronic medical record was generated, in whole or in part, using a voice recognition dictation system. Departure Departure Impression: Primary Impression: Intractable abdominal pain Additional Impressions: Uncontrolled diabetes mellitus Nausea and vomiting Disposition: ADMITTED INPATIENT Condition: GUARDED Referrals: UNKNOWN PCP NAME (PCP) Problem Qualifiers Additional Impressions: Uncontrolled diabetes mellitus Diabetes mellitus type: type 1 Diabetes mellitus complication status: with hyperglycemia Qualified Codes: E10.65 - Type 1 diabetes mellitus with hyperglycemia Nausea and vomiting Vomiting type: unspecified Vomiting Intractability: intractable Qualified Codes: R11.2 - Nausea with vomiting, unspecified MICHAEL ANAYA MD Jun 04, 2017 18:13
[2017-06-04 18:38] LABS: CALCIUM 8.6 mg/dL (8.5-10.1); CREATININE 0.7 mg/dL (0.6-1.0); GFR 125.5; POTASSIUM 4.2 mmol/L (3.5-5.1)
[2017-06-04 18:42] LABS: ALBUMIN 2.9 g/dL (3.4-5.0); ALBUMIN/GLOBULIN RATIO 0.9 (1.0-1.7); TOTAL BILIRUBIN 0.7 mg/dL (0.2-1.0); TOTAL PROTEIN 6.2 g/dL (6.4-8.2)
[2017-06-04] MEDS ORDERED: DEXTROSE 50% 25 GM / 50ML DISP.SYRIN. IV PRN (19:15)
[2017-06-04] MEDS ORDERED: PROCHLORPERAZINE 10 MG/2 ML VIAL. IV PRN ×2 (19:15)
[2017-06-04] MEDS ORDERED: PROCHLORPERAZINE 25 MG SUPP.RECT. PR PRN (19:15)
[2017-06-04] MEDS ORDERED: MAGNESIUM HYDROXIDE 2,400 MG/30 ML ORAL.SUSP. PO PRN (19:15)
[2017-06-04] MEDS ORDERED: LACTULOSE 20 GM/30 ML SOLUTION. PO PRN (19:15)
[2017-06-04] MEDS ORDERED: BISACODYL 10 MG SUPP.RECT. PR PRN (19:15)
[2017-06-04] MEDS ORDERED: IBUPROFEN 400 MG TABLET. PO PRN (19:15)
[2017-06-04] MEDS ORDERED: ACETAMINOPHEN 325 MG TABLET. PO PRN (19:15)
[2017-06-04] MEDS ORDERED: CALCIUM CARBONATE 500 MG TAB.CHEW PO PRN (19:15)
[2017-06-04] MEDS ORDERED: MAG HYDROX/ALUMINUM HYD/SIMETH 30 ML ORAL.SUSP PO PRN (19:15)
--- NOTE | 2017-06-04 19:17 | PDOC1 ---
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 Coming in with another of her gastroparetic attacks. BUt K and bicarb ok, Sinus tachy 1teens - Admitted henceforth, BS 350s, on rpt 414. UA is glucosuria and proteinuria but no UTI Past Medical History Cardiovascular: No pertinent hx Pulmonary: Asthma GI: GERD, Other Heme/Onc: No pertinent hx Hepatobiliary: No pertinent hx Psych: No pertinent hx Rheumatologic: No pertinent hx Infectious disease: No pertinent hx Renal/: No pertinent hx Endocrine: Diabetes Past Surgical History Past Surgical History: No pertinent history Family History Family History: No Significant, Other Social History Smoke: No ALCOHOL: none Drugs: Marijuana Current Medications Current Medications Current Medications Fentanyl Citrate (Fentanyl 2ml Vial) 50 mcg PRN Q15MIN PRN IV PAIN GREATER THAN 3/10 Last administered on 06/04/17 18:53; Start 06/04/17 at 17:30; Stop at 17:29 Sodium Chloride 1,000 ml @ 1,000 mls/hr Q1H IV Last administered on 06/04/17 18:48; Start 06/04/17 at 17:19; Stop 06/04/17 at 18:18; Status DC Metoclopramide HCl (Reglan) 10 mg 1X ONCE IV Last administered on 06/04/17 18 :50; Start 06/04/17 at 17:30; Stop 06/04/17 at 17:31; Status DC Active Scripts Active Lisinopril 20 Mg Tablet 1 Tab PO DAILY Bactrim Ds Tablet (Sulfamethoxazole/Trimethoprim) 1 Each Tablet 1 Tab PO BID Hydrocodone-Apap 10-325 (Hydrocodone Bit/Acetaminophen) 1 Each Tablet 1 Tab PO PRN Q6HRS PRN Levemir Flextouch (Insulin Detemir) 100 Unit/1 Ml Insuln.pen 20 Unit SQ HS 30 Days Lisinopril 20 Mg Tablet 20 Mg PO DAILY Novolog (Insulin Aspart) 100 Unit/1 Ml Cartridge 10 Units SQ TIDAC 30 Days Reported Gabapentin 300 Mg Capsule 300 Mg PO TID Allergies Allergies: Coded Allergies: No Known Medication Allergies (Verified Allergy, Unknown, 12/31/16) ROS Review of System as per HPI< abd pain,n n, v, all else is neg Physical Exam General: Alert, Oriented X3, Cooperative, No acute distress HEENT: Atraumatic, PERRLA, EOMI Lungs: Clear to auscultation, Normal air movement Heart: S1S2, RRR, no thrills, no rubs, no gallops, no murmurs Cardiovascular: S1, S2 Breasts: Normal, Rt breast nml w/o mass, Lt breast nml w/o mass, Nipples normal Abdomen: Normal bowel sounds, Soft, No tenderness, No hepatosplenomegaly, No masses Rectal Exam: not examined PELVIC: Nml ext genitalia Extremities: No clubbing, No cyanosis, No edema, Normal pulses, No tenderness/ swelling Skin: No rashes, No breakdown, No significant lesion Neuro: Normal gait, Normal speech, Strength at 5/5 X4 ext, Normal tone, Sensation intact, Cranial nerves 3-12 NL, Reflexes 2+ Psych/Mental Status: Mental status NL, Mood NL Vitals Vitals Vital Signs Date Time Temp Pulse Resp B/P (MAP) Pulse Ox O2 Delivery O2 Flow Rate FiO2 06/04/17 18:56 112 20 164/113 (130) 98 Room Air 06/04/17 16:54 98.6 98.6 Labs Labs Laboratory Tests Test 06/04/17 16:16 06/04/17 16:50 06/04/17 17:13 06/04/17 17:20 Bedside Urine HCG, Qualitative Hcg negative (Negative) Urine Collection Type Void Urine Color Straw Urine Clarity Clear Urine pH 5.5 Urine Specific [place] >=1.030 Urine Protein Negative mg/dL (NEG-TRACE) Urine Glucose (UA) >=1000 mg/dL (NEG) Urine Ketones (Stick) 15 mg/dL (NEG) Urine Blood Negative (NEG) Urine Nitrite Negative (NEG) Urine Bilirubin Negative (NEG) Urine Urobilinogen Dipstick 0.2 mg/dL (0.2 mg/dL) Urine Leukocyte Esterase Negative (NEG) Urine RBC 0 /HPF (0-2) Urine WBC Occ /HPF (0-4) Urine Squamous Epithelial Cells Mod /LPF Urine Bacteria Few /HPF (0-FEW) Glucose (Fingerstick) 358 mg/dL (70-99) White Blood Count 6.9 x10^3/uL (4.0-11.0) Red Blood Count 4.68 x10^6/uL (3.50-5.40) Hemoglobin 14.0 g/dL (12.0-15.5) Hematocrit 42.7 % (36.0-47.0) Mean Corpuscular Volume 91 fL (79-100) Mean Corpuscular Hemoglobin 30 pg (25-35) Mean Corpuscular Hemoglobin Concent 33 g/dL (31-37) Red Cell Distribution Width 13.7 % (11.5-14.5) Platelet Count 408 x10^3/uL (140-400) Neutrophils (%) (Auto) 61 % (31-73) Lymphocytes (%) (Auto) 32 % (24-48) Monocytes (%) (Auto) 6 % (0-9) Eosinophils (%) (Auto) 1 % (0-3) Basophils (%) (Auto) 1 % (0-3) Neutrophils # (Auto) 4.2 x10^3uL (1.8-7.7) Lymphocytes # (Auto) 2.2 x10^3/uL (1.0-4.8) Monocytes # (Auto) 0.4 x10^3/uL (0.0-1.1) Eosinophils # (Auto) 0.0 x10^3/uL (0.0-0.7) Basophils # (Auto) 0.1 x10^3/uL (0.0-0.2) Test 06/04/17 18:15 Sodium Level 137 mmol/L (136-145) Potassium Level 4.2 mmol/L (3.5-5.1) Chloride Level 102 mmol/L (98-107) Carbon Dioxide Level 28 mmol/L (21-32) Anion Gap 7 (6-14) Blood Urea Nitrogen 13 mg/dL (7-20) Creatinine 0.7 mg/dL (0.6-1.0) Estimated GFR (Cockcroft-Gault) 125.5 BUN/Creatinine Ratio 19 (6-20) Glucose Level 414 mg/dL (70-99) Calcium Level 8.6 mg/dL (8.5-10.1) Total Bilirubin 0.7 mg/dL (0.2-1.0) Aspartate Amino Transf (AST/SGOT) 14 U/L (15-37) Alanine Aminotransferase (ALT/SGPT) 22 U/L (14-59) Alkaline Phosphatase 90 U/L (46-116) Total Protein 6.2 g/dL (6.4-8.2) Albumin 2.9 g/dL (3.4-5.0) Albumin/Globulin Ratio 0.9 (1.0-1.7) Lipase 65 U/L (73-393) Laboratory Tests Test 06/04/17 16:16 06/04/17 16:50 06/04/17 17:13 06/04/17 17:20 Bedside Urine HCG, Qualitative Hcg negative (Negative) Urine Collection Type Void Urine Color Straw Urine Clarity Clear Urine pH 5.5 Urine Specific [place] >=1.030 Urine Protein Negative mg/dL (NEG-TRACE) Urine Glucose (UA) >=1000 mg/dL (NEG) Urine Ketones (Stick) 15 mg/dL (NEG) Urine Blood Negative (NEG) Urine Nitrite Negative (NEG) Urine Bilirubin Negative (NEG) Urine Urobilinogen Dipstick 0.2 mg/dL (0.2 mg/dL) Urine Leukocyte Esterase Negative (NEG) Urine RBC 0 /HPF (0-2) Urine WBC Occ /HPF (0-4) Urine Squamous Epithelial Cells Mod /LPF Urine Bacteria Few /HPF (0-FEW) Glucose (Fingerstick) 358 mg/dL (70-99) White Blood Count 6.9 x10^3/uL (4.0-11.0) Red Blood Count 4.68 x10^6/uL (3.50-5.40) Hemoglobin 14.0 g/dL (12.0-15.5) Hematocrit 42.7 % (36.0-47.0) Mean Corpuscular Volume 91 fL (79-100) Mean Corpuscular Hemoglobin 30 pg (25-35) Mean Corpuscular Hemoglobin Concent 33 g/dL (31-37) Red Cell Distribution Width 13.7 % (11.5-14.5) Platelet Count 408 x10^3/uL (140-400) Neutrophils (%) (Auto) 61 % (31-73) Lymphocytes (%) (Auto) 32 % (24-48) Monocytes (%) (Auto) 6 % (0-9) Eosinophils (%) (Auto) 1 % (0-3) Basophils (%) (Auto) 1 % (0-3) Neutrophils # (Auto) 4.2 x10^3uL (1.8-7.7) Lymphocytes # (Auto) 2.2 x10^3/uL (1.0-4.8) Monocytes # (Auto) 0.4 x10^3/uL (0.0-1.1) Eosinophils # (Auto) 0.0 x10^3/uL (0.0-0.7) Basophils # (Auto) 0.1 x10^3/uL (0.0-0.2) Test 06/04/17 18:15 Sodium Level 137 mmol/L (136-145) Potassium Level 4.2 mmol/L (3.5-5.1) Chloride Level 102 mmol/L (98-107) Carbon Dioxide Level 28 mmol/L (21-32) Anion Gap 7 (6-14) Blood Urea Nitrogen 13 mg/dL (7-20) Creatinine 0.7 mg/dL (0.6-1.0) Estimated GFR (Cockcroft-Gault) 125.5 BUN/Creatinine Ratio 19 (6-20) Glucose Level 414 mg/dL (70-99) Calcium Level 8.6 mg/dL (8.5-10.1) Total Bilirubin 0.7 mg/dL (0.2-1.0) Aspartate Amino Transf (AST/SGOT) 14 U/L (15-37) Alanine Aminotransferase (ALT/SGPT) 22 U/L (14-59) Alkaline Phosphatase 90 U/L (46-116) Total Protein 6.2 g/dL (6.4-8.2) Albumin 2.9 g/dL (3.4-5.0) Albumin/Globulin Ratio 0.9 (1.0-1.7) Lipase 65 U/L (73-393) VTE Prophylaxis Ordered VTE Prophylaxis Devices: Yes VTE Pharmacological Prophylaxi: Yes Assessment/Plan Assessment/Plan 1. DM gastroparesis 2. DM uncontrolled, type 1 3. Proteinuria/glucosuria PLAN: admit IVF saline hydrate SSI high dose Resume home meds DM education Reglan scheduled seen ER 21 Dw LC Mccarthy MD Jun 04, 2017 19:17
[2017-06-04 20:50] VITALS: BP 162/118
[2017-06-04] MEDS ORDERED: INSULIN DETEMIR 300 UNITS/3 ML INSULN.PEN. SQ SCH (21:00)
[2017-06-04] MEDS: GABAPENTIN 300 MG CAPSULE. PO SCH (21:18)
[2017-06-04] MEDS: DOCUSATE SODIUM 100 MG CAPSULE. PO SCH (21:18)
[2017-06-04] MEDS: ZOLPIDEM 5 MG TABLET. PO PRN (21:18)
[2017-06-04] MEDS: HYDROcodone/APAP 10/325 1 TAB TABLET PO PRN (21:19)
[2017-06-04] MEDS: METOCLOPRAMIDE HCL 10 MG/2 ML VIAL. IV SCH (21:19)
[2017-06-04] MEDS: MORPHINE SULFATE 4 MG/ML DISP.SYRIN. IV PRN (21:20)
[2017-06-04] MEDS ORDERED: INSULIN ASPART 300 UNITS/3 ML INSULN.PEN SQ ONE (22:15)
[2017-06-04 23:00] VITALS: BP 137/95
--- NOTE | 2017-06-04 23:11 | ACF ---
Admission Forms Criteria ABDOMINAL PAIN Clinical Indications for Admission to Inpatient Care ( [place]/check or initial the applicable condition/criteria): Admission is indicated for ANY ONE of the following (1)(2)(3)(4)(5)(6): [ ]I. Surgery needed that cannot be performed on ambulatory basis [ ]II. Peritoneal signs present (eg, rebound tenderness, rigidity) [ ]III. Evaluation requires patient to not eat or drink for extended period ( eg, more than 24 hours). [X]IV. Inpatient admission required[B] rather than observation care (see Abdominal Pain: Observation Care guideline as appropriate) because of ANY ONE of the following(7)(8)(9): [ ] a) Hemodynamic instability [X]b) Severe pain requiring acute inpatient management [ ]c) Identification of etiology or finding that requires inpatient care (eg, aortic dissection, free air,bowel ischemia)(10) [ ]d) Absent bowel sounds with complete ileus (11) [ ]e) Signs of intestinal obstruction[C] [ ]f) Suspected toxic megacolon [ ]g) Severe electrolyte abnormalities requiring inpatient care [ ]h) High fever or infection requiring inpatient admission as indicated by ANY ONE of the following (12)(13): [ ]i) Appropriate outpatient or observation care antimicrobial treatment unavailable, not effective, or not feasible [ ]ii) Documented bacteremia [ ]iii) Temperature greater than 104.9 degrees F (40.5 degrees C) (oral) [ ]iv) Temperature greater than 103.1 degrees F (39.5 degrees C) ( oral) or less than 96.8 degrees F (36 degrees C) (rectal) that does not respond to all emergency treatment measures [ ]i) IV fluid required rather than oral rehydration to replace significant ongoing (eg, for greater than 24 hours) losses (greater than 3 L/m2 per day)(14)(15) [ ]j) Percutaneous or open drainage (eg, abscess, biliary tract) procedures [ ]k) Parenteral nutrition regimen that must be implemented on inpatient basis [ ]l) Other condition, treatment, or monitoring requiring inpatient admission Extended stay beyond goal length of stay may be needed for (1)(3)(4)(10)(16): [ ]a) Surgery (e.g., colectomy, revascularization procedure) [ ]b) Persistent abdominal pain with suspected intra-abdominal process [ ]c) Diagnosed condition requiring continued stay (e.g., pancreatitis, complicated diverticulitis) The [facility] content created by [facility] has been revised. The portions of the content which have been revised are identified through the use of italic text, and [facility] has neither reviewed nor approved the modified material.All other unmodified content is copyright [facility]. Please see references footnoted in the original [facility] edition 2015 Admission Criteria Met?: Yes SACHIN NIETO Jun 04, 2017 23:11
[2017-06-05 03:00] VITALS: BP 123/91
[2017-06-05] MEDS: ONDANSETRON PF 4 MG/2 ML VIAL. IV PRN (04:52)
[2017-06-05] MEDS: HYDROcodone/APAP 10/325 1 TAB TABLET PO PRN ×3 (04:52→21:21)
[2017-06-05] MEDS: MORPHINE SULFATE 4 MG/ML DISP.SYRIN. IV PRN ×2 (04:53→10:36)
[2017-06-05 06:11] LABS: CALCIUM 8.3 mg/dL (8.5-10.1); CREATININE 0.4 mg/dL (0.6-1.0); GFR 239.3; POTASSIUM 3.7 mmol/L (3.5-5.1)
[2017-06-05 07:00] VITALS: BP 134/99
[2017-06-05] MEDS ORDERED: INSULIN ASPART 300 UNITS/3 ML INSULN.PEN SQ SCH (07:30)
[2017-06-05] MEDS: INSULIN ASPART 300 UNITS/3 ML INSULN.PEN SQ SCH ×5 (08:00→17:47)
--- NOTE | 2017-06-05 08:26 | RAD ---
Acute abdomen series with chest, 3 views, 06/04/2017: History: Abdominal pain, vomiting There is gas and stool scattered throughout the colon in a nonspecific pattern. No free air is seen in the abdomen. There is no evidence of organomegaly. Lower pelvic calcifications are probably phleboliths. The heart size is normal. The lungs are clear. There is no evidence of pleural fluid. IMPRESSION: No acute abdominal abnormality is detected.
[2017-06-05] MEDS: DOCUSATE SODIUM 100 MG CAPSULE. PO SCH ×2 (09:00→20:21)
[2017-06-05] MEDS ORDERED: MAGNESIUM HYDROXIDE 2,400 MG/30 ML ORAL.SUSP. PO PRN (09:45)
[2017-06-05 11:00] VITALS: BP 134/93
[2017-06-05] MEDS: METOCLOPRAMIDE HCL 10 MG/2 ML VIAL. IV SCH ×3 (11:30→20:26)
--- NOTE | 2017-06-05 12:26 | PDOC ---
SURGICAL PROGRESS NOTE Subjective Consult received Pt out of room Pt well known, poor surgical candidate given brittle uncontrolled diabetes will f/u in AM Vital Signs Vital Signs Date Time Temp Pulse Resp B/P (MAP) Pulse Ox O2 Delivery O2 Flow Rate FiO2 06/05/17 11:00 97.8 93 16 134/93 (107) 99 Room Air 97.8 I&O Intake and Output 06/05/17 06:59 Intake Total 3520 ml Balance 3520 ml Intake Oral 2520 ml IV Total 1000 ml # Voids 1 Labs Laboratory Tests Test 06/04/17 16:16 06/04/17 16:50 06/04/17 17:13 06/04/17 17:20 Bedside Urine HCG, Qualitative Hcg negative (Negative) Urine Collection Type Void Urine Color Straw Urine Clarity Clear Urine pH 5.5 Urine Specific [place] >=1.030 Urine Protein Negative mg/dL (NEG-TRACE) Urine Glucose (UA) >=1000 mg/dL (NEG) Urine Ketones (Stick) 15 mg/dL (NEG) Urine Blood Negative (NEG) Urine Nitrite Negative (NEG) Urine Bilirubin Negative (NEG) Urine Urobilinogen Dipstick 0.2 mg/dL (0.2 mg/dL) Urine Leukocyte Esterase Negative (NEG) Urine RBC 0 /HPF (0-2) Urine WBC Occ /HPF (0-4) Urine Squamous Epithelial Cells Mod /LPF Urine Bacteria Few /HPF (0-FEW) Glucose (Fingerstick) 358 mg/dL (70-99) White Blood Count 6.9 x10^3/uL (4.0-11.0) Red Blood Count 4.68 x10^6/uL (3.50-5.40) Hemoglobin 14.0 g/dL (12.0-15.5) Hematocrit 42.7 % (36.0-47.0) Mean Corpuscular Volume 91 fL (79-100) Mean Corpuscular Hemoglobin 30 pg (25-35) Mean Corpuscular Hemoglobin Concent 33 g/dL (31-37) Red Cell Distribution Width 13.7 % (11.5-14.5) Platelet Count 408 x10^3/uL (140-400) Neutrophils (%) (Auto) 61 % (31-73) Lymphocytes (%) (Auto) 32 % (24-48) Monocytes (%) (Auto) 6 % (0-9) Eosinophils (%) (Auto) 1 % (0-3) Basophils (%) (Auto) 1 % (0-3) Neutrophils # (Auto) 4.2 x10^3uL (1.8-7.7) Lymphocytes # (Auto) 2.2 x10^3/uL (1.0-4.8) Monocytes # (Auto) 0.4 x10^3/uL (0.0-1.1) Eosinophils # (Auto) 0.0 x10^3/uL (0.0-0.7) Basophils # (Auto) 0.1 x10^3/uL (0.0-0.2) Test 06/04/17 18:15 06/04/17 21:03 06/05/17 04:45 06/05/17 07:13 Sodium Level 137 mmol/L (136-145) 142 mmol/L (136-145) Potassium Level 4.2 mmol/L (3.5-5.1) 3.7 mmol/L (3.5-5.1) Chloride Level 102 mmol/L (98-107) 109 mmol/L (98-107) Carbon Dioxide Level 28 mmol/L (21-32) 25 mmol/L (21-32) Anion Gap 7 (6-14) 8 (6-14) Blood Urea Nitrogen 13 mg/dL (7-20) 11 mg/dL (7-20) Creatinine 0.7 mg/dL (0.6-1.0) 0.4 mg/dL (0.6-1.0) Estimated GFR (Cockcroft-Gault) 125.5 239.3 BUN/Creatinine Ratio 19 (6-20) Glucose Level 414 mg/dL (70-99) 85 mg/dL (70-99) Calcium Level 8.6 mg/dL (8.5-10.1) 8.3 mg/dL (8.5-10.1) Total Bilirubin 0.7 mg/dL (0.2-1.0) Aspartate Amino Transf (AST/SGOT) 14 U/L (15-37) Alanine Aminotransferase (ALT/SGPT) 22 U/L (14-59) Alkaline Phosphatase 90 U/L (46-116) Total Protein 6.2 g/dL (6.4-8.2) Albumin 2.9 g/dL (3.4-5.0) Albumin/Globulin Ratio 0.9 (1.0-1.7) Lipase 65 U/L (73-393) Glucose (Fingerstick) 435 mg/dL (70-99) 53 mg/dL (70-99) Test 06/05/17 07:47 06/05/17 10:45 Glucose (Fingerstick) 75 mg/dL (70-99) 90 mg/dL (70-99) Laboratory Tests Test 06/04/17 16:16 06/04/17 16:50 06/04/17 17:13 06/04/17 17:20 Bedside Urine HCG, Qualitative Hcg negative (Negative) Urine Collection Type Void Urine Color Straw Urine Clarity Clear Urine pH 5.5 Urine Specific [place] >=1.030 Urine Protein Negative mg/dL (NEG-TRACE) Urine Glucose (UA) >=1000 mg/dL (NEG) Urine Ketones (Stick) 15 mg/dL (NEG) Urine Blood Negative (NEG) Urine Nitrite Negative (NEG) Urine Bilirubin Negative (NEG) Urine Urobilinogen Dipstick 0.2 mg/dL (0.2 mg/dL) Urine Leukocyte Esterase Negative (NEG) Urine RBC 0 /HPF (0-2) Urine WBC Occ /HPF (0-4) Urine Squamous Epithelial Cells Mod /LPF Urine Bacteria Few /HPF (0-FEW) Glucose (Fingerstick) 358 mg/dL (70-99) White Blood Count 6.9 x10^3/uL (4.0-11.0) Red Blood Count 4.68 x10^6/uL (3.50-5.40) Hemoglobin 14.0 g/dL (12.0-15.5) Hematocrit 42.7 % (36.0-47.0) Mean Corpuscular Volume 91 fL (79-100) Mean Corpuscular Hemoglobin 30 pg (25-35) Mean Corpuscular Hemoglobin Concent 33 g/dL (31-37) Red Cell Distribution Width 13.7 % (11.5-14.5) Platelet Count 408 x10^3/uL (140-400) Neutrophils (%) (Auto) 61 % (31-73) Lymphocytes (%) (Auto) 32 % (24-48) Monocytes (%) (Auto) 6 % (0-9) Eosinophils (%) (Auto) 1 % (0-3) Basophils (%) (Auto) 1 % (0-3) Neutrophils # (Auto) 4.2 x10^3uL (1.8-7.7) Lymphocytes # (Auto) 2.2 x10^3/uL (1.0-4.8) Monocytes # (Auto) 0.4 x10^3/uL (0.0-1.1) Eosinophils # (Auto) 0.0 x10^3/uL (0.0-0.7) Basophils # (Auto) 0.1 x10^3/uL (0.0-0.2) Test 06/04/17 18:15 06/04/17 21:03 06/05/17 04:45 06/05/17 07:13 Sodium Level 137 mmol/L (136-145) 142 mmol/L (136-145) Potassium Level 4.2 mmol/L (3.5-5.1) 3.7 mmol/L (3.5-5.1) Chloride Level 102 mmol/L (98-107) 109 mmol/L (98-107) Carbon Dioxide Level 28 mmol/L (21-32) 25 mmol/L (21-32) Anion Gap 7 (6-14) 8 (6-14) Blood Urea Nitrogen 13 mg/dL (7-20) 11 mg/dL (7-20) Creatinine 0.7 mg/dL (0.6-1.0) 0.4 mg/dL (0.6-1.0) Estimated GFR (Cockcroft-Gault) 125.5 239.3 BUN/Creatinine Ratio 19 (6-20) Glucose Level 414 mg/dL (70-99) 85 mg/dL (70-99) Calcium Level 8.6 mg/dL (8.5-10.1) 8.3 mg/dL (8.5-10.1) Total Bilirubin 0.7 mg/dL (0.2-1.0) Aspartate Amino Transf (AST/SGOT) 14 U/L (15-37) Alanine Aminotransferase (ALT/SGPT) 22 U/L (14-59) Alkaline Phosphatase 90 U/L (46-116) Total Protein 6.2 g/dL (6.4-8.2) Albumin 2.9 g/dL (3.4-5.0) Albumin/Globulin Ratio 0.9 (1.0-1.7) Lipase 65 U/L (73-393) Glucose (Fingerstick) 435 mg/dL (70-99) 53 mg/dL (70-99) Test 06/05/17 07:47 06/05/17 10:45 Glucose (Fingerstick) 75 mg/dL (70-99) 90 mg/dL (70-99) Problem List Problems Medical Problems: (1) Intractable abdominal pain Status: Acute (2) Nausea and vomiting Status: Acute (3) Uncontrolled diabetes mellitus Status: Acute Problems: LIZA SPARKS MD Jun 05, 2017 12:26
--- NOTE | 2017-06-05 12:50 | PDOC ---
PROGRESS NOTES Chief Complaint Chief Complaint abd pain with N/V, with chronic armando, gastroparesis? uncontrolled DM type 1 History Asthma GERD chronic cholecystitis plan: sx consulted, pt supposed to fu with sx for chronic cholecystitis, but glucose not controlled well check hba1c change insulin to levemir 15u qhs, aspart 5u tid, ssi GES add protonix dvt ppx on full liquid diet for now History of Present Illness History of Present Illness no fever, chills, sob or chest pain N/V slightly better , but still moderate abd pain, hypoglycemia this am hypoglycemia at home too Vitals Vitals Vital Signs Date Time Temp Pulse Resp B/P (MAP) Pulse Ox O2 Delivery O2 Flow Rate FiO2 06/05/17 11:00 97.8 93 16 134/93 (107) 99 Room Air 97.8 Physical Exam General: Alert, Oriented X3, Cooperative, No acute distress Heart: Regular rate Lungs: Clear, Other Abdomen: Normal bowel sounds, Soft, No hepatosplenomegaly, No masses, Other ( epigastric abd tenderness) Extremities: No clubbing, No cyanosis, No edema, Normal pulses, No tenderness/ swelling Skin: No rashes, No breakdown, No significant lesion Labs LABS Laboratory Tests Test 06/04/17 16:16 06/04/17 16:50 06/04/17 17:13 06/04/17 17:20 Bedside Urine HCG, Qualitative Hcg negative (Negative) Urine Collection Type Void Urine Color Straw Urine Clarity Clear Urine pH 5.5 Urine Specific [place] >=1.030 Urine Protein Negative mg/dL (NEG-TRACE) Urine Glucose (UA) >=1000 mg/dL (NEG) Urine Ketones (Stick) 15 mg/dL (NEG) Urine Blood Negative (NEG) Urine Nitrite Negative (NEG) Urine Bilirubin Negative (NEG) Urine Urobilinogen Dipstick 0.2 mg/dL (0.2 mg/dL) Urine Leukocyte Esterase Negative (NEG) Urine RBC 0 /HPF (0-2) Urine WBC Occ /HPF (0-4) Urine Squamous Epithelial Cells Mod /LPF Urine Bacteria Few /HPF (0-FEW) Glucose (Fingerstick) 358 mg/dL (70-99) White Blood Count 6.9 x10^3/uL (4.0-11.0) Red Blood Count 4.68 x10^6/uL (3.50-5.40) Hemoglobin 14.0 g/dL (12.0-15.5) Hematocrit 42.7 % (36.0-47.0) Mean Corpuscular Volume 91 fL (79-100) Mean Corpuscular Hemoglobin 30 pg (25-35) Mean Corpuscular Hemoglobin Concent 33 g/dL (31-37) Red Cell Distribution Width 13.7 % (11.5-14.5) Platelet Count 408 x10^3/uL (140-400) Neutrophils (%) (Auto) 61 % (31-73) Lymphocytes (%) (Auto) 32 % (24-48) Monocytes (%) (Auto) 6 % (0-9) Eosinophils (%) (Auto) 1 % (0-3) Basophils (%) (Auto) 1 % (0-3) Neutrophils # (Auto) 4.2 x10^3uL (1.8-7.7) Lymphocytes # (Auto) 2.2 x10^3/uL (1.0-4.8) Monocytes # (Auto) 0.4 x10^3/uL (0.0-1.1) Eosinophils # (Auto) 0.0 x10^3/uL (0.0-0.7) Basophils # (Auto) 0.1 x10^3/uL (0.0-0.2) Test 06/04/17 18:15 06/04/17 21:03 06/05/17 04:45 06/05/17 07:13 Sodium Level 137 mmol/L (136-145) 142 mmol/L (136-145) Potassium Level 4.2 mmol/L (3.5-5.1) 3.7 mmol/L (3.5-5.1) Chloride Level 102 mmol/L (98-107) 109 mmol/L (98-107) Carbon Dioxide Level 28 mmol/L (21-32) 25 mmol/L (21-32) Anion Gap 7 (6-14) 8 (6-14) Blood Urea Nitrogen 13 mg/dL (7-20) 11 mg/dL (7-20) Creatinine 0.7 mg/dL (0.6-1.0) 0.4 mg/dL (0.6-1.0) Estimated GFR (Cockcroft-Gault) 125.5 239.3 BUN/Creatinine Ratio 19 (6-20) Glucose Level 414 mg/dL (70-99) 85 mg/dL (70-99) Calcium Level 8.6 mg/dL (8.5-10.1) 8.3 mg/dL (8.5-10.1) Total Bilirubin 0.7 mg/dL (0.2-1.0) Aspartate Amino Transf (AST/SGOT) 14 U/L (15-37) Alanine Aminotransferase (ALT/SGPT) 22 U/L (14-59) Alkaline Phosphatase 90 U/L (46-116) Total Protein 6.2 g/dL (6.4-8.2) Albumin 2.9 g/dL (3.4-5.0) Albumin/Globulin Ratio 0.9 (1.0-1.7) Lipase 65 U/L (73-393) Glucose (Fingerstick) 435 mg/dL (70-99) 53 mg/dL (70-99) Test 06/05/17 07:47 06/05/17 10:45 Glucose (Fingerstick) 75 mg/dL (70-99) 90 mg/dL (70-99) Assessment and Plan Assessmemt and Plan Problems Medical Problems: (1) Intractable abdominal pain Status: Acute (2) Nausea and vomiting Status: Acute (3) Uncontrolled diabetes mellitus Status: Acute Problems: Comment Review of Relevant I have reviewed the following items cristela (where applicable) has been applied. Labs Laboratory Tests Test 06/04/17 16:16 06/04/17 16:50 06/04/17 17:13 06/04/17 17:20 Bedside Urine HCG, Qualitative Hcg negative (Negative) Urine Collection Type Void Urine Color Straw Urine Clarity Clear Urine pH 5.5 Urine Specific [place] >=1.030 Urine Protein Negative mg/dL (NEG-TRACE) Urine Glucose (UA) >=1000 mg/dL (NEG) Urine Ketones (Stick) 15 mg/dL (NEG) Urine Blood Negative (NEG) Urine Nitrite Negative (NEG) Urine Bilirubin Negative (NEG) Urine Urobilinogen Dipstick 0.2 mg/dL (0.2 mg/dL) Urine Leukocyte Esterase Negative (NEG) Urine RBC 0 /HPF (0-2) Urine WBC Occ /HPF (0-4) Urine Squamous Epithelial Cells Mod /LPF Urine Bacteria Few /HPF (0-FEW) Glucose (Fingerstick) 358 mg/dL (70-99) White Blood Count 6.9 x10^3/uL (4.0-11.0) Red Blood Count 4.68 x10^6/uL (3.50-5.40) Hemoglobin 14.0 g/dL (12.0-15.5) Hematocrit 42.7 % (36.0-47.0) Mean Corpuscular Volume 91 fL (79-100) Mean Corpuscular Hemoglobin 30 pg (25-35) Mean Corpuscular Hemoglobin Concent 33 g/dL (31-37) Red Cell Distribution Width 13.7 % (11.5-14.5) Platelet Count 408 x10^3/uL (140-400) Neutrophils (%) (Auto) 61 % (31-73) Lymphocytes (%) (Auto) 32 % (24-48) Monocytes (%) (Auto) 6 % (0-9) Eosinophils (%) (Auto) 1 % (0-3) Basophils (%) (Auto) 1 % (0-3) Neutrophils # (Auto) 4.2 x10^3uL (1.8-7.7) Lymphocytes # (Auto) 2.2 x10^3/uL (1.0-4.8) Monocytes # (Auto) 0.4 x10^3/uL (0.0-1.1) Eosinophils # (Auto) 0.0 x10^3/uL (0.0-0.7) Basophils # (Auto) 0.1 x10^3/uL (0.0-0.2) Test 06/04/17 18:15 06/04/17 21:03 06/05/17 04:45 06/05/17 07:13 Sodium Level 137 mmol/L (136-145) 142 mmol/L (136-145) Potassium Level 4.2 mmol/L (3.5-5.1) 3.7 mmol/L (3.5-5.1) Chloride Level 102 mmol/L (98-107) 109 mmol/L (98-107) Carbon Dioxide Level 28 mmol/L (21-32) 25 mmol/L (21-32) Anion Gap 7 (6-14) 8 (6-14) Blood Urea Nitrogen 13 mg/dL (7-20) 11 mg/dL (7-20) Creatinine 0.7 mg/dL (0.6-1.0) 0.4 mg/dL (0.6-1.0) Estimated GFR (Cockcroft-Gault) 125.5 239.3 BUN/Creatinine Ratio 19 (6-20) Glucose Level 414 mg/dL (70-99) 85 mg/dL (70-99) Calcium Level 8.6 mg/dL (8.5-10.1) 8.3 mg/dL (8.5-10.1) Total Bilirubin 0.7 mg/dL (0.2-1.0) Aspartate Amino Transf (AST/SGOT) 14 U/L (15-37) Alanine Aminotransferase (ALT/SGPT) 22 U/L (14-59) Alkaline Phosphatase 90 U/L (46-116) Total Protein 6.2 g/dL (6.4-8.2) Albumin 2.9 g/dL (3.4-5.0) Albumin/Globulin Ratio 0.9 (1.0-1.7) Lipase 65 U/L (73-393) Glucose (Fingerstick) 435 mg/dL (70-99) 53 mg/dL (70-99) Test 06/05/17 07:47 06/05/17 10:45 Glucose (Fingerstick) 75 mg/dL (70-99) 90 mg/dL (70-99) Laboratory Tests Test 06/04/17 16:16 06/04/17 16:50 06/04/17 17:13 06/04/17 17:20 Bedside Urine HCG, Qualitative Hcg negative (Negative) Urine Collection Type Void Urine Color Straw Urine Clarity Clear Urine pH 5.5 Urine Specific [place] >=1.030 Urine Protein Negative mg/dL (NEG-TRACE) Urine Glucose (UA) >=1000 mg/dL (NEG) Urine Ketones (Stick) 15 mg/dL (NEG) Urine Blood Negative (NEG) Urine Nitrite Negative (NEG) Urine Bilirubin Negative (NEG) Urine Urobilinogen Dipstick 0.2 mg/dL (0.2 mg/dL) Urine Leukocyte Esterase Negative (NEG) Urine RBC 0 /HPF (0-2) Urine WBC Occ /HPF (0-4) Urine Squamous Epithelial Cells Mod /LPF Urine Bacteria Few /HPF (0-FEW) Glucose (Fingerstick) 358 mg/dL (70-99) White Blood Count 6.9 x10^3/uL (4.0-11.0) Red Blood Count 4.68 x10^6/uL (3.50-5.40) Hemoglobin 14.0 g/dL (12.0-15.5) Hematocrit 42.7 % (36.0-47.0) Mean Corpuscular Volume 91 fL (79-100) Mean Corpuscular Hemoglobin 30 pg (25-35) Mean Corpuscular Hemoglobin Concent 33 g/dL (31-37) Red Cell Distribution Width 13.7 % (11.5-14.5) Platelet Count 408 x10^3/uL (140-400) Neutrophils (%) (Auto) 61 % (31-73) Lymphocytes (%) (Auto) 32 % (24-48) Monocytes (%) (Auto) 6 % (0-9) Eosinophils (%) (Auto) 1 % (0-3) Basophils (%) (Auto) 1 % (0-3) Neutrophils # (Auto) 4.2 x10^3uL (1.8-7.7) Lymphocytes # (Auto) 2.2 x10^3/uL (1.0-4.8) Monocytes # (Auto) 0.4 x10^3/uL (0.0-1.1) Eosinophils # (Auto) 0.0 x10^3/uL (0.0-0.7) Basophils # (Auto) 0.1 x10^3/uL (0.0-0.2) Test 06/04/17 18:15 06/04/17 21:03 06/05/17 04:45 06/05/17 07:13 Sodium Level 137 mmol/L (136-145) 142 mmol/L (136-145) Potassium Level 4.2 mmol/L (3.5-5.1) 3.7 mmol/L (3.5-5.1) Chloride Level 102 mmol/L (98-107) 109 mmol/L (98-107) Carbon Dioxide Level 28 mmol/L (21-32) 25 mmol/L (21-32) Anion Gap 7 (6-14) 8 (6-14) Blood Urea Nitrogen 13 mg/dL (7-20) 11 mg/dL (7-20) Creatinine 0.7 mg/dL (0.6-1.0) 0.4 mg/dL (0.6-1.0) Estimated GFR (Cockcroft-Gault) 125.5 239.3 BUN/Creatinine Ratio 19 (6-20) Glucose Level 414 mg/dL (70-99) 85 mg/dL (70-99) Calcium Level 8.6 mg/dL (8.5-10.1) 8.3 mg/dL (8.5-10.1) Total Bilirubin 0.7 mg/dL (0.2-1.0) Aspartate Amino Transf (AST/SGOT) 14 U/L (15-37) Alanine Aminotransferase (ALT/SGPT) 22 U/L (14-59) Alkaline Phosphatase 90 U/L (46-116) Total Protein 6.2 g/dL (6.4-8.2) Albumin 2.9 g/dL (3.4-5.0) Albumin/Globulin Ratio 0.9 (1.0-1.7) Lipase 65 U/L (73-393) Glucose (Fingerstick) 435 mg/dL (70-99) 53 mg/dL (70-99) Test 06/05/17 07:47 06/05/17 10:45 Glucose (Fingerstick) 75 mg/dL (70-99) 90 mg/dL (70-99) Medications Current Medications Fentanyl Citrate (Fentanyl 2ml Vial) 50 mcg PRN Q15MIN PRN IV PAIN GREATER THAN 3/10 Last administered on 06/04/17 18:53; Start 06/04/17 at 17:30; Stop at 17:29 Sodium Chloride 1,000 ml @ 1,000 mls/hr Q1H IV Last administered on 06/04/17 18:48; Start 06/04/17 at 17:19; Stop 06/04/17 at 18:18; Status DC Metoclopramide HCl (Reglan) 10 mg 1X ONCE IV Last administered on 06/04/17 18 :50; Start 06/04/17 at 17:30; Stop 06/04/17 at 17:31; Status DC Sodium Chloride 1,000 ml @ 150 mls/hr Q6H40M IV Last administered on 21:20; Start 06/04/17 at 19:09; Stop 06/05/17 at 02:43; Status DC Ondansetron HCl (Zofran) 4 mg PRN Q6HRS PRN IV NAUSEA/VOMITING Last administered on 06/05/17 04:52; Start 06/04/17 at 19:15 Prochlorperazine Edisylate (Compazine) 10 mg PRN Q6HRS PRN IV NAUSEA/VOMITING; Start 06/04/17 at 19:15 Prochlorperazine (Compazine) 25 mg PRN Q12HR PRN NE NAUSEA/VOMITING; Start at 19:15 Al Hydroxide/Mg Hydroxide (Mylanta Plus Xs) 30 ml PRN Q3HRS PRN PO HEARTBURN / GAS; Start 06/04/17 at 19:15 Calcium Carbonate/ Glycine (Tums) 500 mg PRN Q3HRS PRN PO UPSET STOMACH; Start 06/04/17 at 19:15 Zolpidem Tartrate (Ambien) 5 mg PRN QHS PRN PO INSOMNIA, MAY REPEAT IN 1HR Last administered on 06/04/17 21:18; Start 06/04/17 at 19:15 Oxycodone HCl (Roxicodone) 5 mg PRN Q3HRS PRN PO BREAKTHROUGH PAIN; Start 06/04 at 19:15 Morphine Sulfate 2 mg PRN Q2HR PRN IV PAIN Last administered on 06/05/17 10:36 ; Start 06/04/17 at 19:15 Acetaminophen (Tylenol) 650 mg PRN Q6HRS PRN PO Headaches, Temp > 101.5F; Start 06/04/17 at 19:15 Ibuprofen (Motrin) 400 mg PRN Q6HRS PRN PO MILD PAIN Last administered on 21:19; Start 06/04/17 at 19:15; Stop 06/05/17 at 09:45; Status DC Docusate Sodium (Colace) 100 mg BID PO Last administered on 06/04/17 21:18; Start 06/04/17 at 21:00 Magnesium Hydroxide (Milk Of Magnesia) 2,400 mg PRN Q12HR PRN PO CONSTIPATION; Start 06/04/17 at 19:15 Lactulose 20 gm PRN Q12HR PRN PO CONSTIPATION; Start 06/04/17 at 19:15 Bisacodyl (Dulcolax Supp) 10 mg PRN DAILY PRN NE CONSTIPATION; Start 06/04/17 at 19:15 Insulin Aspart (NovoLOG) 0-9 UNITS TIDWMEALS SQ ; Start 06/05/17 at 08:00 Dextrose (Dextrose 50%-Water Syringe) 12.5 gm PRN Q15MIN PRN IV SEE COMMENTS; Start 06/04/17 at 19:15 Acetaminophen/ Hydrocodone Bitart (Lortab 10/325) 1 tab PRN Q6HRS PRN PO PAIN Last administered on 06/05/17 04:52; Start 06/04/17 at 19:15 Insulin Detemir (Levemir) 20 units HS SQ Last administered on 06/04/17 21:35; Start 06/04/17 at 21:00; Stop 06/05/17 at 09:45; Status DC Lisinopril (Prinivil) 20 mg DAILY PO ; Start 06/05/17 at 09:00 Gabapentin (Neurontin) 300 mg TID PO Last administered on 06/04/17 21:18; Start 06/04/17 at 21:00 Insulin Aspart (NovoLOG) 10 units TIDAC SQ ; Start 06/05/17 at 07:30; Stop 06/05 at 09:45; Status DC Metoclopramide HCl (Reglan) 10 mg TID IV Last administered on 06/05/17 11:30; Start 06/04/17 at 21:00 Prochlorperazine Edisylate (Compazine) 10 mg PRN TID PRN IV NAUSEA/VOMITING; Start 06/04/17 at 19:15; Status Cancel Insulin Aspart (NovoLOG) 12 units 1X ONCE SQ Last administered on 06/04/17 22 :18; Start 06/04/17 at 22:15; Stop 06/04/17 at 22:16; Status DC Insulin Aspart (NovoLOG) 5 units TIDAC SQ ; Start 06/05/17 at 11:30 Insulin Detemir (Levemir) 15 units HS SQ ; Start 06/05/17 at 21:00 Senna/Docusate Sodium (Senna Plus) 1 tab BID PO ; Start 06/05/17 at 10:30 Docusate Sodium (Colace) 100 mg BID PO ; Start 06/05/17 at 21:00; Status UNV Magnesium Hydroxide (Milk Of Magnesia) 2,400 mg PRN Q12HR PRN PO CONSTIPATION; Start 06/05/17 at 09:45; Status UNV Pantoprazole Sodium (Protonix) 40 mg DAILYAC PO ; Start 06/05/17 at 10:30 Active Scripts Active Lisinopril 20 Mg Tablet 1 Tab PO DAILY Bactrim Ds Tablet (Sulfamethoxazole/Trimethoprim) 1 Each Tablet 1 Tab PO BID Hydrocodone-Apap 10-325 (Hydrocodone Bit/Acetaminophen) 1 Each Tablet 1 Tab PO PRN Q6HRS PRN Levemir Flextouch (Insulin Detemir) 100 Unit/1 Ml Insuln.pen 20 Unit SQ HS 30 Days Lisinopril 20 Mg Tablet 20 Mg PO DAILY Novolog (Insulin Aspart) 100 Unit/1 Ml Cartridge 10 Units SQ TIDAC 30 Days Reported Gabapentin 300 Mg Capsule 300 Mg PO TID Vitals/I & O Vital Sign - Last 24 Hours 06/04/17 06/04/17 06/04/17 06/04/17 16:54 17:26 18:07 18:53 Temp 98.6 98.6 Pulse 107 109 111 Resp 20 B/P (MAP) 167/120 (136) 147/107 (120) 166/117 (133) Pulse Ox 100 100 100 98 O2 Delivery Room Air Room Air Room Air Room Air 06/04/17 06/04/17 06/04/17 06/04/17 18:56 19:23 20:50 21:19 Temp 98.8 98.8 Pulse 112 113 Resp 20 20 18 20 B/P (MAP) 164/113 (130) 162/118 (133) Pulse Ox 98 98 97 98 O2 Delivery Room Air Room Air Room Air 06/04/17 06/04/17 06/04/17 06/05/17 21:20 21:57 23:00 03:00 Temp 98.2 98.2 98.2 98.2 Pulse 109 106 Resp 20 18 18 B/P (MAP) 137/95 (109) 123/91 (102) Pulse Ox 98 99 98 O2 Delivery Room Air Room Air Room Air Room Air 06/05/17 06/05/17 06/05/17 06/05/17 04:52 04:53 05:23 05:52 Resp 20 20 20 20 Pulse Ox 98 98 98 98 O2 Delivery Room Air Room Air Room Air Room Air 06/05/17 06/05/17 06/05/17 07:00 10:36 11:00 Temp 97.5 97.8 97.5 97.8 Pulse 92 93 Resp 16 18 16 B/P (MAP) 134/99 (111) 134/93 (107) Pulse Ox 94 94 99 O2 Delivery Room Air Room Air Room Air Intake and Output 06/04/17 06/04/17 06/05/17 15:00 23:00 07:00 Intake Total 3520 ml Balance 3520 ml RALF TREVINO MD Jun 05, 2017 12:50
--- NOTE | 2017-06-05 13:11 | RAD ---
Radionuclide gastric emptying study, 06/05/2017: History: Gastroparesis This study was performed utilizing a solid test meal radiolabeled with 2.0 mCi of technetium 99m sulfur colloid. The time to half emptying of the test meal from the patient's stomach was estimated at 59 minutes. This T1/2 is in the normal range. IMPRESSION: Normal gastric emptying time
[2017-06-05] MEDS: GABAPENTIN 300 MG CAPSULE. PO SCH ×3 (14:00→20:21)
[2017-06-05 15:00] VITALS: BP 157/115
[2017-06-05] MEDS: PANTOPRAZOLE 40 MG TABLET.DR. PO SCH (15:47)
[2017-06-05] MEDS: SENNOSIDES/DOCUSATE 8.6/50MG TABLET. PO SCH ×2 (15:48→20:22)
[2017-06-05] MEDS: LISINOPRIL 20 MG TABLET PO SCH (15:52)
[2017-06-05] MEDS: oxyCODONE IR 5 MG TABLET PO PRN (15:59)
[2017-06-05 19:00] VITALS: BP 139/95
[2017-06-05] MEDS ORDERED: DOCUSATE SODIUM 100 MG CAPSULE. PO SCH (21:00)
[2017-06-05] MEDS: INSULIN DETEMIR 300 UNITS/3 ML INSULN.PEN. SQ SCH (22:53)
[2017-06-05] MEDS: ZOLPIDEM 5 MG TABLET. PO PRN (22:55)
[2017-06-05 23:32] VITALS: BP 133/90
[2017-06-06] MEDS: HYDROcodone/APAP 10/325 1 TAB TABLET PO PRN ×3 (02:36→17:21)
[2017-06-06] MEDS: oxyCODONE IR 5 MG TABLET PO PRN ×3 (03:23→20:11)
[2017-06-06 03:31] VITALS: BP_SYST 160; BP_SYST 163; BP_DIAS 108; BP_DIAS 114
[2017-06-06 07:14] VITALS: BP 165/113
[2017-06-06] MEDS: SENNOSIDES/DOCUSATE 8.6/50MG TABLET. PO SCH ×2 (08:47→21:34)
[2017-06-06] MEDS: DOCUSATE SODIUM 100 MG CAPSULE. PO SCH ×2 (08:47→21:34)
[2017-06-06] MEDS: PANTOPRAZOLE 40 MG TABLET.DR. PO SCH (08:47)
[2017-06-06] MEDS: LISINOPRIL 20 MG TABLET PO SCH (08:48)
[2017-06-06] MEDS: GABAPENTIN 300 MG CAPSULE. PO SCH ×3 (08:48→21:34)
[2017-06-06] MEDS: INSULIN ASPART 300 UNITS/3 ML INSULN.PEN SQ SCH ×6 (08:55→17:24)
[2017-06-06] MEDS: METOCLOPRAMIDE HCL 10 MG/2 ML VIAL. IV SCH ×3 (09:00→21:35)
[2017-06-06] MEDS ORDERED: HYDROcodone/APAP 5/325MG 1 TAB TABLET PO PRN (09:15)
[2017-06-06 10:07] LABS: BASO # 0.1 x10^3/uL (0.0-0.2); BASO % 1 % (0-3); EOS % 1 % (0-3); HEMATOCRIT 38.2 % (36.0-47.0); HEMOGLOBIN 13.2 g/dL (12.0-15.5); LYMPH # 1.6 x10^3/uL (1.0-4.8); LYMPH % 32 % (24-48); MEAN CORPUSCULAR HEMOGLOBIN 31 pg (25-35); MEAN CORPUSCULAR HGB CONC 35 g/dL (31-37); MEAN CORPUSCULAR VOLUME 88 fL (79-100); MONO % 7 % (0-9); NEUT % 58 % (31-73); PLATELET COUNT 419 x10^3/uL (140-400); RED BLOOD COUNT 4.32 x10^6/uL (3.50-5.40); RED CELL DISTRIBUTION WIDTH 13.5 % (11.5-14.5)
[2017-06-06 10:35] LABS: CALCIUM 9.4 mg/dL (8.5-10.1); CREATININE 0.6 mg/dL (0.6-1.0); GFR 149.9; POTASSIUM 3.7 mmol/L (3.5-5.1)
[2017-06-06 10:41] VITALS: BP 144/102
--- NOTE | 2017-06-06 12:38 | PDOC ---
PROGRESS NOTES Chief Complaint Chief Complaint abd pain with N/V, with chronic armando uncontrolled DM type 1 History Asthma GERD chronic cholecystitis No gastroparesis HTN accelerated plan: sx consulted, pt supposed to fu with sx for chronic cholecystitis, but glucose not controlled well check hba1c change insulin to levemir 15u qhs, aspart 5u tid, ssi GES neg add protonix dvt ppx gi soft diet now add lortab INCREAase lisinopril to 40mg daily History of Present Illness History of Present Illness no fever, chills, sob or chest pain N/V slightly better , but still moderate abd pain, hypoglycemia better hypoglycemia at home too Vitals Vitals Vital Signs Date Time Temp Pulse Resp B/P (MAP) Pulse Ox O2 Delivery O2 Flow Rate FiO2 06/06/17 10:41 97.5 103 18 144/102 (116) 100 Room Air 97.5 Physical Exam General: Alert, Oriented X3, Cooperative, No acute distress Heart: Regular rate Lungs: Clear, Other Abdomen: Normal bowel sounds, Soft, No hepatosplenomegaly, No masses, Other ( epigastric abd tenderness) Extremities: No clubbing, No cyanosis, No edema, Normal pulses, No tenderness/ swelling Skin: No rashes, No breakdown, No significant lesion Labs LABS Laboratory Tests Test 06/05/17 16:16 06/05/17 20:31 06/06/17 07:17 06/06/17 09:49 Glucose (Fingerstick) 321 mg/dL (70-99) 106 mg/dL (70-99) 154 mg/dL (70-99) White Blood Count 5.0 x10^3/uL (4.0-11.0) Red Blood Count 4.32 x10^6/uL (3.50-5.40) Hemoglobin 13.2 g/dL (12.0-15.5) Hematocrit 38.2 % (36.0-47.0) Mean Corpuscular Volume 88 fL (79-100) Mean Corpuscular Hemoglobin 31 pg (25-35) Mean Corpuscular Hemoglobin Concent 35 g/dL (31-37) Red Cell Distribution Width 13.5 % (11.5-14.5) Platelet Count 419 x10^3/uL (140-400) Neutrophils (%) (Auto) 58 % (31-73) Lymphocytes (%) (Auto) 32 % (24-48) Monocytes (%) (Auto) 7 % (0-9) Eosinophils (%) (Auto) 1 % (0-3) Basophils (%) (Auto) 1 % (0-3) Neutrophils # (Auto) 2.9 x10^3uL (1.8-7.7) Lymphocytes # (Auto) 1.6 x10^3/uL (1.0-4.8) Monocytes # (Auto) 0.4 x10^3/uL (0.0-1.1) Eosinophils # (Auto) 0.0 x10^3/uL (0.0-0.7) Basophils # (Auto) 0.1 x10^3/uL (0.0-0.2) Sodium Level 139 mmol/L (136-145) Potassium Level 3.7 mmol/L (3.5-5.1) Chloride Level 103 mmol/L (98-107) Carbon Dioxide Level 27 mmol/L (21-32) Anion Gap 9 (6-14) Blood Urea Nitrogen 8 mg/dL (7-20) Creatinine 0.6 mg/dL (0.6-1.0) Estimated GFR (Cockcroft-Gault) 149.9 Glucose Level 147 mg/dL (70-99) Calcium Level 9.4 mg/dL (8.5-10.1) Test 06/06/17 11:16 Glucose (Fingerstick) 97 mg/dL (70-99) Assessment and Plan Assessmemt and Plan Problems Medical Problems: (1) Intractable abdominal pain Status: Acute (2) Nausea and vomiting Status: Acute (3) Uncontrolled diabetes mellitus Status: Acute Problems: Comment Review of Relevant I have reviewed the following items cristela (where applicable) has been applied. Labs Laboratory Tests Test 06/04/17 16:16 06/04/17 16:50 06/04/17 17:13 06/04/17 17:20 Bedside Urine HCG, Qualitative Hcg negative (Negative) Urine Collection Type Void Urine Color Straw Urine Clarity Clear Urine pH 5.5 Urine Specific [place] >=1.030 Urine Protein Negative mg/dL (NEG-TRACE) Urine Glucose (UA) >=1000 mg/dL (NEG) Urine Ketones (Stick) 15 mg/dL (NEG) Urine Blood Negative (NEG) Urine Nitrite Negative (NEG) Urine Bilirubin Negative (NEG) Urine Urobilinogen Dipstick 0.2 mg/dL (0.2 mg/dL) Urine Leukocyte Esterase Negative (NEG) Urine RBC 0 /HPF (0-2) Urine WBC Occ /HPF (0-4) Urine Squamous Epithelial Cells Mod /LPF Urine Bacteria Few /HPF (0-FEW) Glucose (Fingerstick) 358 mg/dL (70-99) White Blood Count 6.9 x10^3/uL (4.0-11.0) Red Blood Count 4.68 x10^6/uL (3.50-5.40) Hemoglobin 14.0 g/dL (12.0-15.5) Hematocrit 42.7 % (36.0-47.0) Mean Corpuscular Volume 91 fL (79-100) Mean Corpuscular Hemoglobin 30 pg (25-35) Mean Corpuscular Hemoglobin Concent 33 g/dL (31-37) Red Cell Distribution Width 13.7 % (11.5-14.5) Platelet Count 408 x10^3/uL (140-400) Neutrophils (%) (Auto) 61 % (31-73) Lymphocytes (%) (Auto) 32 % (24-48) Monocytes (%) (Auto) 6 % (0-9) Eosinophils (%) (Auto) 1 % (0-3) Basophils (%) (Auto) 1 % (0-3) Neutrophils # (Auto) 4.2 x10^3uL (1.8-7.7) Lymphocytes # (Auto) 2.2 x10^3/uL (1.0-4.8) Monocytes # (Auto) 0.4 x10^3/uL (0.0-1.1) Eosinophils # (Auto) 0.0 x10^3/uL (0.0-0.7) Basophils # (Auto) 0.1 x10^3/uL (0.0-0.2) Test 06/04/17 18:15 06/04/17 21:03 06/05/17 04:45 06/05/17 07:13 Sodium Level 137 mmol/L (136-145) 142 mmol/L (136-145) Potassium Level 4.2 mmol/L (3.5-5.1) 3.7 mmol/L (3.5-5.1) Chloride Level 102 mmol/L (98-107) 109 mmol/L (98-107) Carbon Dioxide Level 28 mmol/L (21-32) 25 mmol/L (21-32) Anion Gap 7 (6-14) 8 (6-14) Blood Urea Nitrogen 13 mg/dL (7-20) 11 mg/dL (7-20) Creatinine 0.7 mg/dL (0.6-1.0) 0.4 mg/dL (0.6-1.0) Estimated GFR (Cockcroft-Gault) 125.5 239.3 BUN/Creatinine Ratio 19 (6-20) Glucose Level 414 mg/dL (70-99) 85 mg/dL (70-99) Calcium Level 8.6 mg/dL (8.5-10.1) 8.3 mg/dL (8.5-10.1) Total Bilirubin 0.7 mg/dL (0.2-1.0) Aspartate Amino Transf (AST/SGOT) 14 U/L (15-37) Alanine Aminotransferase (ALT/SGPT) 22 U/L (14-59) Alkaline Phosphatase 90 U/L (46-116) Total Protein 6.2 g/dL (6.4-8.2) Albumin 2.9 g/dL (3.4-5.0) Albumin/Globulin Ratio 0.9 (1.0-1.7) Lipase 65 U/L (73-393) Glucose (Fingerstick) 435 mg/dL (70-99) 53 mg/dL (70-99) Test 06/05/17 07:47 06/05/17 10:45 06/05/17 16:16 06/05/17 20:31 Glucose (Fingerstick) 75 mg/dL (70-99) 90 mg/dL (70-99) 321 mg/dL (70-99) 106 mg/dL (70-99) Test 06/06/17 07:17 06/06/17 09:49 06/06/17 11:16 Glucose (Fingerstick) 154 mg/dL (70-99) 97 mg/dL (70-99) White Blood Count 5.0 x10^3/uL (4.0-11.0) Red Blood Count 4.32 x10^6/uL (3.50-5.40) Hemoglobin 13.2 g/dL (12.0-15.5) Hematocrit 38.2 % (36.0-47.0) Mean Corpuscular Volume 88 fL (79-100) Mean Corpuscular Hemoglobin 31 pg (25-35) Mean Corpuscular Hemoglobin Concent 35 g/dL (31-37) Red Cell Distribution Width 13.5 % (11.5-14.5) Platelet Count 419 x10^3/uL (140-400) Neutrophils (%) (Auto) 58 % (31-73) Lymphocytes (%) (Auto) 32 % (24-48) Monocytes (%) (Auto) 7 % (0-9) Eosinophils (%) (Auto) 1 % (0-3) Basophils (%) (Auto) 1 % (0-3) Neutrophils # (Auto) 2.9 x10^3uL (1.8-7.7) Lymphocytes # (Auto) 1.6 x10^3/uL (1.0-4.8) Monocytes # (Auto) 0.4 x10^3/uL (0.0-1.1) Eosinophils # (Auto) 0.0 x10^3/uL (0.0-0.7) Basophils # (Auto) 0.1 x10^3/uL (0.0-0.2) Sodium Level 139 mmol/L (136-145) Potassium Level 3.7 mmol/L (3.5-5.1) Chloride Level 103 mmol/L (98-107) Carbon Dioxide Level 27 mmol/L (21-32) Anion Gap 9 (6-14) Blood Urea Nitrogen 8 mg/dL (7-20) Creatinine 0.6 mg/dL (0.6-1.0) Estimated GFR (Cockcroft-Gault) 149.9 Glucose Level 147 mg/dL (70-99) Calcium Level 9.4 mg/dL (8.5-10.1) Laboratory Tests Test 06/05/17 16:16 06/05/17 20:31 06/06/17 07:17 06/06/17 09:49 Glucose (Fingerstick) 321 mg/dL (70-99) 106 mg/dL (70-99) 154 mg/dL (70-99) White Blood Count 5.0 x10^3/uL (4.0-11.0) Red Blood Count 4.32 x10^6/uL (3.50-5.40) Hemoglobin 13.2 g/dL (12.0-15.5) Hematocrit 38.2 % (36.0-47.0) Mean Corpuscular Volume 88 fL (79-100) Mean Corpuscular Hemoglobin 31 pg (25-35) Mean Corpuscular Hemoglobin Concent 35 g/dL (31-37) Red Cell Distribution Width 13.5 % (11.5-14.5) Platelet Count 419 x10^3/uL (140-400) Neutrophils (%) (Auto) 58 % (31-73) Lymphocytes (%) (Auto) 32 % (24-48) Monocytes (%) (Auto) 7 % (0-9) Eosinophils (%) (Auto) 1 % (0-3) Basophils (%) (Auto) 1 % (0-3) Neutrophils # (Auto) 2.9 x10^3uL (1.8-7.7) Lymphocytes # (Auto) 1.6 x10^3/uL (1.0-4.8) Monocytes # (Auto) 0.4 x10^3/uL (0.0-1.1) Eosinophils # (Auto) 0.0 x10^3/uL (0.0-0.7) Basophils # (Auto) 0.1 x10^3/uL (0.0-0.2) Sodium Level 139 mmol/L (136-145) Potassium Level 3.7 mmol/L (3.5-5.1) Chloride Level 103 mmol/L (98-107) Carbon Dioxide Level 27 mmol/L (21-32) Anion Gap 9 (6-14) Blood Urea Nitrogen 8 mg/dL (7-20) Creatinine 0.6 mg/dL (0.6-1.0) Estimated GFR (Cockcroft-Gault) 149.9 Glucose Level 147 mg/dL (70-99) Calcium Level 9.4 mg/dL (8.5-10.1) Test 06/06/17 11:16 Glucose (Fingerstick) 97 mg/dL (70-99) Medications Current Medications Fentanyl Citrate (Fentanyl 2ml Vial) 50 mcg PRN Q15MIN PRN IV PAIN GREATER THAN 3/10 Last administered on 06/04/17 18:53; Start 06/04/17 at 17:30; Stop at 17:29; Status DC Sodium Chloride 1,000 ml @ 1,000 mls/hr Q1H IV Last administered on 06/04/17 18:48; Start 06/04/17 at 17:19; Stop 06/04/17 at 18:18; Status DC Metoclopramide HCl (Reglan) 10 mg 1X ONCE IV Last administered on 06/04/17 18 :50; Start 06/04/17 at 17:30; Stop 06/04/17 at 17:31; Status DC Sodium Chloride 1,000 ml @ 150 mls/hr Q6H40M IV Last administered on 21:20; Start 06/04/17 at 19:09; Stop 06/05/17 at 02:43; Status DC Ondansetron HCl (Zofran) 4 mg PRN Q6HRS PRN IV NAUSEA/VOMITING Last administered on 06/05/17 04:52; Start 06/04/17 at 19:15 Prochlorperazine Edisylate (Compazine) 10 mg PRN Q6HRS PRN IV NAUSEA/VOMITING; Start 06/04/17 at 19:15 Prochlorperazine (Compazine) 25 mg PRN Q12HR PRN NM NAUSEA/VOMITING; Start at 19:15 Al Hydroxide/Mg Hydroxide (Mylanta Plus Xs) 30 ml PRN Q3HRS PRN PO HEARTBURN / GAS; Start 06/04/17 at 19:15 Calcium Carbonate/ Glycine (Tums) 500 mg PRN Q3HRS PRN PO UPSET STOMACH; Start 06/04/17 at 19:15 Zolpidem Tartrate (Ambien) 5 mg PRN QHS PRN PO INSOMNIA, MAY REPEAT IN 1HR Last administered on 06/05/17 22:55; Start 06/04/17 at 19:15 Oxycodone HCl (Roxicodone) 5 mg PRN Q3HRS PRN PO BREAKTHROUGH PAIN Last administered on 06/06/17 03:23; Start 06/04/17 at 19:15 Morphine Sulfate 2 mg PRN Q2HR PRN IV PAIN Last administered on 06/05/17 10:36 ; Start 06/04/17 at 19:15 Acetaminophen (Tylenol) 650 mg PRN Q6HRS PRN PO Headaches, Temp > 101.5F; Start 06/04/17 at 19:15 Ibuprofen (Motrin) 400 mg PRN Q6HRS PRN PO MILD PAIN Last administered on 21:19; Start 06/04/17 at 19:15; Stop 06/05/17 at 09:45; Status DC Docusate Sodium (Colace) 100 mg BID PO Last administered on 06/06/17 08:47; Start 06/04/17 at 21:00 Magnesium Hydroxide (Milk Of Magnesia) 2,400 mg PRN Q12HR PRN PO CONSTIPATION; Start 06/04/17 at 19:15 Lactulose 20 gm PRN Q12HR PRN PO CONSTIPATION; Start 06/04/17 at 19:15 Bisacodyl (Dulcolax Supp) 10 mg PRN DAILY PRN NM CONSTIPATION; Start 06/04/17 at 19:15 Insulin Aspart (NovoLOG) 0-9 UNITS TIDWMEALS SQ Last administered on 06/06/17 08:55; Start 06/05/17 at 08:00 Dextrose (Dextrose 50%-Water Syringe) 12.5 gm PRN Q15MIN PRN IV SEE COMMENTS; Start 06/04/17 at 19:15 Acetaminophen/ Hydrocodone Bitart (Lortab 10/325) 1 tab PRN Q6HRS PRN PO PAIN Last administered on 06/06/17 08:49; Start 06/04/17 at 19:15 Insulin Detemir (Levemir) 20 units HS SQ Last administered on 06/04/17 21:35; Start 06/04/17 at 21:00; Stop 06/05/17 at 09:45; Status DC Lisinopril (Prinivil) 20 mg DAILY PO Last administered on 06/06/17 08:48; Start 06/05/17 at 09:00; Stop 06/06/17 at 09:11; Status DC Gabapentin (Neurontin) 300 mg TID PO Last administered on 06/06/17 08:48; Start 06/04/17 at 21:00 Insulin Aspart (NovoLOG) 10 units TIDAC SQ ; Start 06/05/17 at 07:30; Stop 06/05 at 09:45; Status DC Metoclopramide HCl (Reglan) 10 mg TID IV Last administered on 06/05/17 20:26; Start 06/04/17 at 21:00 Prochlorperazine Edisylate (Compazine) 10 mg PRN TID PRN IV NAUSEA/VOMITING; Start 06/04/17 at 19:15; Status Cancel Insulin Aspart (NovoLOG) 12 units 1X ONCE SQ Last administered on 06/04/17 22 :18; Start 06/04/17 at 22:15; Stop 06/04/17 at 22:16; Status DC Insulin Aspart (NovoLOG) 5 units TIDAC SQ Last administered on 06/06/17 08:55 ; Start 06/05/17 at 11:30 Insulin Detemir (Levemir) 15 units HS SQ Last administered on 06/05/17 22:53; Start 06/05/17 at 21:00 Senna/Docusate Sodium (Senna Plus) 1 tab BID PO Last administered on 06/06/17 08:47; Start 06/05/17 at 10:30 Docusate Sodium (Colace) 100 mg BID PO ; Start 06/05/17 at 21:00; Status UNV Magnesium Hydroxide (Milk Of Magnesia) 2,400 mg PRN Q12HR PRN PO CONSTIPATION; Start 06/05/17 at 09:45; Status UNV Pantoprazole Sodium (Protonix) 40 mg DAILYAC PO Last administered on 06/06/17 08:47; Start 06/05/17 at 10:30 Lisinopril (Prinivil) 40 mg DAILY PO ; Start 06/07/17 at 09:00 Acetaminophen/ Hydrocodone Bitart (Lortab 5/325) 1 tab PRN Q4HRS PRN PO PAIN; Start 06/06/17 at 09:15 Active Scripts Active Lisinopril 20 Mg Tablet 1 Tab PO DAILY Bactrim Ds Tablet (Sulfamethoxazole/Trimethoprim) 1 Each Tablet 1 Tab PO BID Hydrocodone-Apap 10-325 (Hydrocodone Bit/Acetaminophen) 1 Each Tablet 1 Tab PO PRN Q6HRS PRN Levemir Flextouch (Insulin Detemir) 100 Unit/1 Ml Insuln.pen 20 Unit SQ HS 30 Days Lisinopril 20 Mg Tablet 20 Mg PO DAILY Novolog (Insulin Aspart) 100 Unit/1 Ml Cartridge 10 Units SQ TIDAC 30 Days Reported Gabapentin 300 Mg Capsule 300 Mg PO TID Vitals/I & O Vital Sign - Last 24 Hours 06/05/17 06/05/17 06/05/17 06/05/17 15:00 15:52 15:59 16:59 Temp 97.7 97.7 Pulse 94 94 Resp 18 18 B/P (MAP) 157/115 (129) 156/109 Pulse Ox 99 99 99 O2 Delivery Room Air Room Air Room Air 06/05/17 06/05/17 06/05/17 06/05/17 19:00 20:00 20:21 23:32 Temp 97.5 97.7 97.5 97.7 Pulse 102 101 Resp 20 22 20 B/P (MAP) 139/95 (110) 133/90 (104) Pulse Ox 100 98 O2 Delivery Room Air Room Air Room Air 06/06/17 06/06/17 06/06/17 06/06/17 02:36 03:23 03:31 04:23 Temp 97.9 97.9 Pulse 99 Resp 20 16 18 20 B/P (MAP) 160/108 (125) Pulse Ox 98 99 O2 Delivery Room Air Room Air 06/06/17 06/06/17 06/06/17 06/06/17 07:14 08:48 08:49 09:49 Temp 98.1 98.1 Pulse 99 99 Resp 17 16 16 B/P (MAP) 165/113 (130) 165/113 Pulse Ox 98 O2 Delivery Room Air Room Air Room Air 06/06/17 10:41 Temp 97.5 97.5 Pulse 103 Resp 18 B/P (MAP) 144/102 (116) Pulse Ox 100 O2 Delivery Room Air RALF TREVINO MD Jun 06, 2017 12:37
--- NOTE | 2017-06-06 13:13 | PDOC2 ---
CONSULT Date of Consult Date of Consult DATE: 06/06/17 TIME: 13:09 Reason for Consult Reason for Consult: chronic cholecystitis Referring Physician Referring Physician: HENRY Identification/Chief Complaint Chief Complaint abdominal pain Problems: Source Source: Chart review, Patient History of Present Illness Reason for Visit: Patient know from previous admission, uncontrolled diabetes, chronic cholecystitis. + upper abdominal pain and n/v. + constipation Plan was to consider lap armando once dm controlled, HTN improved Past Medical History Cardiovascular: No pertinent hx Pulmonary: Asthma GI: GERD, Other Heme/Onc: No pertinent hx Hepatobiliary: No pertinent hx Psych: No pertinent hx Rheumatologic: No pertinent hx Infectious disease: No pertinent hx Renal/: No pertinent hx Endocrine: Diabetes Past Surgical History Past Surgical History: No pertinent history Family History Family History: No Significant, Other Social History No ALCOHOL: none Drugs: Marijuana Lives: with Family Domestic Violence: Neg Current Problem List Problem List Problems Medical Problems: (1) Intractable abdominal pain Status: Acute (2) Nausea and vomiting Status: Acute (3) Uncontrolled diabetes mellitus Status: Acute Current Medications Current Medications Current Medications Fentanyl Citrate (Fentanyl 2ml Vial) 50 mcg PRN Q15MIN PRN IV PAIN GREATER THAN 3/10 Last administered on 06/04/17 18:53; Start 06/04/17 at 17:30; Stop at 17:29; Status DC Sodium Chloride 1,000 ml @ 1,000 mls/hr Q1H IV Last administered on 06/04/17 18:48; Start 06/04/17 at 17:19; Stop 06/04/17 at 18:18; Status DC Metoclopramide HCl (Reglan) 10 mg 1X ONCE IV Last administered on 06/04/17 18 :50; Start 06/04/17 at 17:30; Stop 06/04/17 at 17:31; Status DC Sodium Chloride 1,000 ml @ 150 mls/hr Q6H40M IV Last administered on 21:20; Start 06/04/17 at 19:09; Stop 06/05/17 at 02:43; Status DC Ondansetron HCl (Zofran) 4 mg PRN Q6HRS PRN IV NAUSEA/VOMITING Last administered on 06/05/17 04:52; Start 06/04/17 at 19:15 Prochlorperazine Edisylate (Compazine) 10 mg PRN Q6HRS PRN IV NAUSEA/VOMITING; Start 06/04/17 at 19:15 Prochlorperazine (Compazine) 25 mg PRN Q12HR PRN NE NAUSEA/VOMITING; Start at 19:15 Al Hydroxide/Mg Hydroxide (Mylanta Plus Xs) 30 ml PRN Q3HRS PRN PO HEARTBURN / GAS; Start 06/04/17 at 19:15 Calcium Carbonate/ Glycine (Tums) 500 mg PRN Q3HRS PRN PO UPSET STOMACH; Start 06/04/17 at 19:15 Zolpidem Tartrate (Ambien) 5 mg PRN QHS PRN PO INSOMNIA, MAY REPEAT IN 1HR Last administered on 06/05/17 22:55; Start 06/04/17 at 19:15 Oxycodone HCl (Roxicodone) 5 mg PRN Q3HRS PRN PO BREAKTHROUGH PAIN Last administered on 06/06/17 12:33; Start 06/04/17 at 19:15 Morphine Sulfate 2 mg PRN Q2HR PRN IV PAIN Last administered on 06/05/17 10:36 ; Start 06/04/17 at 19:15 Acetaminophen (Tylenol) 650 mg PRN Q6HRS PRN PO Headaches, Temp > 101.5F; Start 06/04/17 at 19:15 Ibuprofen (Motrin) 400 mg PRN Q6HRS PRN PO MILD PAIN Last administered on 21:19; Start 06/04/17 at 19:15; Stop 06/05/17 at 09:45; Status DC Docusate Sodium (Colace) 100 mg BID PO Last administered on 06/06/17 08:47; Start 06/04/17 at 21:00 Magnesium Hydroxide (Milk Of Magnesia) 2,400 mg PRN Q12HR PRN PO CONSTIPATION; Start 06/04/17 at 19:15 Lactulose 20 gm PRN Q12HR PRN PO CONSTIPATION; Start 06/04/17 at 19:15 Bisacodyl (Dulcolax Supp) 10 mg PRN DAILY PRN NE CONSTIPATION; Start 06/04/17 at 19:15 Insulin Aspart (NovoLOG) 0-9 UNITS TIDWMEALS SQ Last administered on 06/06/17 08:55; Start 06/05/17 at 08:00 Dextrose (Dextrose 50%-Water Syringe) 12.5 gm PRN Q15MIN PRN IV SEE COMMENTS; Start 06/04/17 at 19:15 Acetaminophen/ Hydrocodone Bitart (Lortab 10/325) 1 tab PRN Q6HRS PRN PO PAIN Last administered on 06/06/17 08:49; Start 06/04/17 at 19:15 Insulin Detemir (Levemir) 20 units HS SQ Last administered on 06/04/17 21:35; Start 06/04/17 at 21:00; Stop 06/05/17 at 09:45; Status DC Lisinopril (Prinivil) 20 mg DAILY PO Last administered on 06/06/17 08:48; Start 06/05/17 at 09:00; Stop 06/06/17 at 09:11; Status DC Gabapentin (Neurontin) 300 mg TID PO Last administered on 06/06/17 08:48; Start 06/04/17 at 21:00 Insulin Aspart (NovoLOG) 10 units TIDAC SQ ; Start 06/05/17 at 07:30; Stop 06/05 at 09:45; Status DC Metoclopramide HCl (Reglan) 10 mg TID IV Last administered on 06/06/17 12:33; Start 06/04/17 at 21:00 Prochlorperazine Edisylate (Compazine) 10 mg PRN TID PRN IV NAUSEA/VOMITING; Start 06/04/17 at 19:15; Status Cancel Insulin Aspart (NovoLOG) 12 units 1X ONCE SQ Last administered on 06/04/17 22 :18; Start 06/04/17 at 22:15; Stop 06/04/17 at 22:16; Status DC Insulin Aspart (NovoLOG) 5 units TIDAC SQ Last administered on 06/06/17 12:38 ; Start 06/05/17 at 11:30 Insulin Detemir (Levemir) 15 units HS SQ Last administered on 06/05/17 22:53; Start 06/05/17 at 21:00 Senna/Docusate Sodium (Senna Plus) 1 tab BID PO Last administered on 06/06/17 08:47; Start 06/05/17 at 10:30 Docusate Sodium (Colace) 100 mg BID PO ; Start 06/05/17 at 21:00; Status UNV Magnesium Hydroxide (Milk Of Magnesia) 2,400 mg PRN Q12HR PRN PO CONSTIPATION; Start 06/05/17 at 09:45; Status UNV Pantoprazole Sodium (Protonix) 40 mg DAILYAC PO Last administered on 06/06/17t 08:47; Start 06/05/17 at 10:30 Lisinopril (Prinivil) 40 mg DAILY PO ; Start 06/07/17 at 09:00 Acetaminophen/ Hydrocodone Bitart (Lortab 5/325) 1 tab PRN Q4HRS PRN PO PAIN; Start 06/06/17 at 09:15 Active Scripts Active Lisinopril 20 Mg Tablet 1 Tab PO DAILY Bactrim Ds Tablet (Sulfamethoxazole/Trimethoprim) 1 Each Tablet 1 Tab PO BID Hydrocodone-Apap 10-325 (Hydrocodone Bit/Acetaminophen) 1 Each Tablet 1 Tab PO PRN Q6HRS PRN Levemir Flextouch (Insulin Detemir) 100 Unit/1 Ml Insuln.pen 20 Unit SQ HS 30 Days Lisinopril 20 Mg Tablet 20 Mg PO DAILY Novolog (Insulin Aspart) 100 Unit/1 Ml Cartridge 10 Units SQ TIDAC 30 Days Reported Gabapentin 300 Mg Capsule 300 Mg PO TID Allergies Allergies: Coded Allergies: No Known Medication Allergies (Verified Allergy, Unknown, 12/31/16) ROS General: No: Chills, Other (fevers) PSYCHOLOGICAL ROS: No: Anxiety, Depression Eyes: No Blurry vision, No Double vision HEENT: No: Heacaches, Sore Throat Hematological and Lymphatic: No: Bleeding Problems, Blood Clots Respiratory: No: Cough, Shortness of breath Cardiovascular: No Chest Pain, No Palpitations Gastrointestinal: Yes Other (see hpi) Genitourinary: No Dysuria, No Hematuria Musculoskeletal: No Joint Pain, No Muscle Pain Neurological: No Confusion, No Numbness/Tingling Skin: No Pruritus, No Rash Physical Exam General: Alert, Oriented X3, Cooperative, No acute distress HEENT: PERRLA, Mucous membr. moist/pink Lungs: Clear to auscultation, Normal air movement Heart: Regular rate, Normal S1, Normal S2, No murmurs Abdomen: Soft, Other (upper abdominal TTP) Extremities: No clubbing, No cyanosis Skin: No rashes, No breakdown Neuro: Normal gait, Normal speech Psych/Mental Status: Mental status NL, Mood NL MUSCULOSKELETAL: No deformity, No swelling Vitals VITALS Vital Signs Date Time Temp Pulse Resp B/P (MAP) Pulse Ox O2 Delivery O2 Flow Rate FiO2 06/06/17 12:33 16 Room Air 06/06/17 10:41 97.5 103 144/102 (116) 100 97.5 Labs Labs Laboratory Tests Test 06/04/17 16:16 06/04/17 16:50 06/04/17 17:13 06/04/17 17:20 Bedside Urine HCG, Qualitative Hcg negative (Negative) Urine Collection Type Void Urine Color Straw Urine Clarity Clear Urine pH 5.5 Urine Specific [place] >=1.030 Urine Protein Negative mg/dL (NEG-TRACE) Urine Glucose (UA) >=1000 mg/dL (NEG) Urine Ketones (Stick) 15 mg/dL (NEG) Urine Blood Negative (NEG) Urine Nitrite Negative (NEG) Urine Bilirubin Negative (NEG) Urine Urobilinogen Dipstick 0.2 mg/dL (0.2 mg/dL) Urine Leukocyte Esterase Negative (NEG) Urine RBC 0 /HPF (0-2) Urine WBC Occ /HPF (0-4) Urine Squamous Epithelial Cells Mod /LPF Urine Bacteria Few /HPF (0-FEW) Glucose (Fingerstick) 358 mg/dL (70-99) White Blood Count 6.9 x10^3/uL (4.0-11.0) Red Blood Count 4.68 x10^6/uL (3.50-5.40) Hemoglobin 14.0 g/dL (12.0-15.5) Hematocrit 42.7 % (36.0-47.0) Mean Corpuscular Volume 91 fL (79-100) Mean Corpuscular Hemoglobin 30 pg (25-35) Mean Corpuscular Hemoglobin Concent 33 g/dL (31-37) Red Cell Distribution Width 13.7 % (11.5-14.5) Platelet Count 408 x10^3/uL (140-400) Neutrophils (%) (Auto) 61 % (31-73) Lymphocytes (%) (Auto) 32 % (24-48) Monocytes (%) (Auto) 6 % (0-9) Eosinophils (%) (Auto) 1 % (0-3) Basophils (%) (Auto) 1 % (0-3) Neutrophils # (Auto) 4.2 x10^3uL (1.8-7.7) Lymphocytes # (Auto) 2.2 x10^3/uL (1.0-4.8) Monocytes # (Auto) 0.4 x10^3/uL (0.0-1.1) Eosinophils # (Auto) 0.0 x10^3/uL (0.0-0.7) Basophils # (Auto) 0.1 x10^3/uL (0.0-0.2) Test 06/04/17 18:15 06/04/17 21:03 06/05/17 04:45 06/05/17 07:13 Sodium Level 137 mmol/L (136-145) 142 mmol/L (136-145) Potassium Level 4.2 mmol/L (3.5-5.1) 3.7 mmol/L (3.5-5.1) Chloride Level 102 mmol/L (98-107) 109 mmol/L (98-107) Carbon Dioxide Level 28 mmol/L (21-32) 25 mmol/L (21-32) Anion Gap 7 (6-14) 8 (6-14) Blood Urea Nitrogen 13 mg/dL (7-20) 11 mg/dL (7-20) Creatinine 0.7 mg/dL (0.6-1.0) 0.4 mg/dL (0.6-1.0) Estimated GFR (Cockcroft-Gault) 125.5 239.3 BUN/Creatinine Ratio 19 (6-20) Glucose Level 414 mg/dL (70-99) 85 mg/dL (70-99) Calcium Level 8.6 mg/dL (8.5-10.1) 8.3 mg/dL (8.5-10.1) Total Bilirubin 0.7 mg/dL (0.2-1.0) Aspartate Amino Transf (AST/SGOT) 14 U/L (15-37) Alanine Aminotransferase (ALT/SGPT) 22 U/L (14-59) Alkaline Phosphatase 90 U/L (46-116) Total Protein 6.2 g/dL (6.4-8.2) Albumin 2.9 g/dL (3.4-5.0) Albumin/Globulin Ratio 0.9 (1.0-1.7) Lipase 65 U/L (73-393) Glucose (Fingerstick) 435 mg/dL (70-99) 53 mg/dL (70-99) Test 06/05/17 07:47 06/05/17 10:45 06/05/17 16:16 06/05/17 20:31 Glucose (Fingerstick) 75 mg/dL (70-99) 90 mg/dL (70-99) 321 mg/dL (70-99) 106 mg/dL (70-99) Test 06/06/17 07:17 06/06/17 09:49 06/06/17 11:16 Glucose (Fingerstick) 154 mg/dL (70-99) 97 mg/dL (70-99) White Blood Count 5.0 x10^3/uL (4.0-11.0) Red Blood Count 4.32 x10^6/uL (3.50-5.40) Hemoglobin 13.2 g/dL (12.0-15.5) Hematocrit 38.2 % (36.0-47.0) Mean Corpuscular Volume 88 fL (79-100) Mean Corpuscular Hemoglobin 31 pg (25-35) Mean Corpuscular Hemoglobin Concent 35 g/dL (31-37) Red Cell Distribution Width 13.5 % (11.5-14.5) Platelet Count 419 x10^3/uL (140-400) Neutrophils (%) (Auto) 58 % (31-73) Lymphocytes (%) (Auto) 32 % (24-48) Monocytes (%) (Auto) 7 % (0-9) Eosinophils (%) (Auto) 1 % (0-3) Basophils (%) (Auto) 1 % (0-3) Neutrophils # (Auto) 2.9 x10^3uL (1.8-7.7) Lymphocytes # (Auto) 1.6 x10^3/uL (1.0-4.8) Monocytes # (Auto) 0.4 x10^3/uL (0.0-1.1) Eosinophils # (Auto) 0.0 x10^3/uL (0.0-0.7) Basophils # (Auto) 0.1 x10^3/uL (0.0-0.2) Sodium Level 139 mmol/L (136-145) Potassium Level 3.7 mmol/L (3.5-5.1) Chloride Level 103 mmol/L (98-107) Carbon Dioxide Level 27 mmol/L (21-32) Anion Gap 9 (6-14) Blood Urea Nitrogen 8 mg/dL (7-20) Creatinine 0.6 mg/dL (0.6-1.0) Estimated GFR (Cockcroft-Gault) 149.9 Glucose Level 147 mg/dL (70-99) Calcium Level 9.4 mg/dL (8.5-10.1) Laboratory Tests Test 06/05/17 16:16 06/05/17 20:31 06/06/17 07:17 06/06/17 09:49 Glucose (Fingerstick) 321 mg/dL (70-99) 106 mg/dL (70-99) 154 mg/dL (70-99) White Blood Count 5.0 x10^3/uL (4.0-11.0) Red Blood Count 4.32 x10^6/uL (3.50-5.40) Hemoglobin 13.2 g/dL (12.0-15.5) Hematocrit 38.2 % (36.0-47.0) Mean Corpuscular Volume 88 fL (79-100) Mean Corpuscular Hemoglobin 31 pg (25-35) Mean Corpuscular Hemoglobin Concent 35 g/dL (31-37) Red Cell Distribution Width 13.5 % (11.5-14.5) Platelet Count 419 x10^3/uL (140-400) Neutrophils (%) (Auto) 58 % (31-73) Lymphocytes (%) (Auto) 32 % (24-48) Monocytes (%) (Auto) 7 % (0-9) Eosinophils (%) (Auto) 1 % (0-3) Basophils (%) (Auto) 1 % (0-3) Neutrophils # (Auto) 2.9 x10^3uL (1.8-7.7) Lymphocytes # (Auto) 1.6 x10^3/uL (1.0-4.8) Monocytes # (Auto) 0.4 x10^3/uL (0.0-1.1) Eosinophils # (Auto) 0.0 x10^3/uL (0.0-0.7) Basophils # (Auto) 0.1 x10^3/uL (0.0-0.2) Sodium Level 139 mmol/L (136-145) Potassium Level 3.7 mmol/L (3.5-5.1) Chloride Level 103 mmol/L (98-107) Carbon Dioxide Level 27 mmol/L (21-32) Anion Gap 9 (6-14) Blood Urea Nitrogen 8 mg/dL (7-20) Creatinine 0.6 mg/dL (0.6-1.0) Estimated GFR (Cockcroft-Gault) 149.9 Glucose Level 147 mg/dL (70-99) Calcium Level 9.4 mg/dL (8.5-10.1) Test 06/06/17 11:16 Glucose (Fingerstick) 97 mg/dL (70-99) Assessment/Plan Assessment/Plan uncontrolled DM, HTN chronic cholecystitis poor surgical candidate due to DM, HTN will review with MAURA Morales [employer] Jun 06, 2017 13:13
[2017-06-06] MEDS: ONDANSETRON PF 4 MG/2 ML VIAL. IV PRN (14:27)
[2017-06-06 14:48] VITALS: BP 128/88
[2017-06-06 19:00] VITALS: BP 138/97
[2017-06-06] MEDS: INSULIN DETEMIR 300 UNITS/3 ML INSULN.PEN. SQ SCH (21:43)
[2017-06-06 23:00] VITALS: BP 145/95
[2017-06-07] MEDS: HYDROcodone/APAP 10/325 1 TAB TABLET PO PRN (01:17)
[2017-06-07 02:48] VITALS: BP 146/100
[2017-06-07] MEDS: oxyCODONE IR 5 MG TABLET PO PRN ×5 (04:28→23:50)
[2017-06-07 04:58] LABS: BASO # 0.1 x10^3/uL (0.0-0.2); BASO % 1 % (0-3); EOS % 1 % (0-3); HEMATOCRIT 36.2 % (36.0-47.0); LYMPH # 2.1 x10^3/uL (1.0-4.8); LYMPH % 45 % (24-48); MEAN CORPUSCULAR HEMOGLOBIN 30 pg (25-35); MEAN CORPUSCULAR HGB CONC 33 g/dL (31-37); MEAN CORPUSCULAR VOLUME 90 fL (79-100); MONO % 10 % (0-9); NEUT % 42 % (31-73); PLATELET COUNT 378 x10^3/uL (140-400); RED BLOOD COUNT 4.02 x10^6/uL (3.50-5.40); RED CELL DISTRIBUTION WIDTH 13.4 % (11.5-14.5); WHITE BLOOD COUNT 4.6 x10^3/uL (4.0-11.0)
[2017-06-07 05:17] LABS: CREATININE 0.7 mg/dL (0.6-1.0); GFR 125.5; POTASSIUM 4.2 mmol/L (3.5-5.1)
[2017-06-07 07:15] VITALS: BP 148/104
[2017-06-07] MEDS: SENNOSIDES/DOCUSATE 8.6/50MG TABLET. PO SCH ×2 (08:52→21:21)
[2017-06-07] MEDS: PANTOPRAZOLE 40 MG TABLET.DR. PO SCH (08:52)
[2017-06-07] MEDS: DOCUSATE SODIUM 100 MG CAPSULE. PO SCH ×2 (08:52→21:21)
[2017-06-07] MEDS: GABAPENTIN 300 MG CAPSULE. PO SCH ×3 (08:52→21:21)
[2017-06-07] MEDS: LISINOPRIL 40 MG TABLET. PO SCH (08:53)
[2017-06-07] MEDS: METOCLOPRAMIDE HCL 10 MG/2 ML VIAL. IV SCH ×3 (09:00→21:00)
[2017-06-07] MEDS: INSULIN ASPART 300 UNITS/3 ML INSULN.PEN SQ SCH ×6 (09:12→17:30)
--- NOTE | 2017-06-07 09:54 | PDOC ---
SURGICAL PROGRESS NOTE Subjective Pt with c/o RUQ pain Vital Signs Vital Signs Date Time Temp Pulse Resp B/P (MAP) Pulse Ox O2 Delivery O2 Flow Rate FiO2 06/07/17 08:53 93 148/104 06/07/17 08:52 95 Room Air 06/07/17 07:15 97.4 18 97.4 I&O Intake and Output 06/07/17 07:00 Intake Total 900 ml Balance 900 ml Intake Oral 900 ml # Voids 6 General: Alert, Oriented X3, Cooperative, mild distress Abdomen: Soft, Other (TTP RUQ) Labs Laboratory Tests Test 06/05/17 10:45 06/05/17 16:16 06/05/17 20:31 06/06/17 07:17 Glucose (Fingerstick) 90 mg/dL (70-99) 321 mg/dL (70-99) 106 mg/dL (70-99) 154 mg/dL (70-99) Test 06/06/17 09:49 06/06/17 11:16 06/06/17 16:40 06/06/17 20:43 White Blood Count 5.0 x10^3/uL (4.0-11.0) Red Blood Count 4.32 x10^6/uL (3.50-5.40) Hemoglobin 13.2 g/dL (12.0-15.5) Hematocrit 38.2 % (36.0-47.0) Mean Corpuscular Volume 88 fL (79-100) Mean Corpuscular Hemoglobin 31 pg (25-35) Mean Corpuscular Hemoglobin Concent 35 g/dL (31-37) Red Cell Distribution Width 13.5 % (11.5-14.5) Platelet Count 419 x10^3/uL (140-400) Neutrophils (%) (Auto) 58 % (31-73) Lymphocytes (%) (Auto) 32 % (24-48) Monocytes (%) (Auto) 7 % (0-9) Eosinophils (%) (Auto) 1 % (0-3) Basophils (%) (Auto) 1 % (0-3) Neutrophils # (Auto) 2.9 x10^3uL (1.8-7.7) Lymphocytes # (Auto) 1.6 x10^3/uL (1.0-4.8) Monocytes # (Auto) 0.4 x10^3/uL (0.0-1.1) Eosinophils # (Auto) 0.0 x10^3/uL (0.0-0.7) Basophils # (Auto) 0.1 x10^3/uL (0.0-0.2) Sodium Level 139 mmol/L (136-145) Potassium Level 3.7 mmol/L (3.5-5.1) Chloride Level 103 mmol/L (98-107) Carbon Dioxide Level 27 mmol/L (21-32) Anion Gap 9 (6-14) Blood Urea Nitrogen 8 mg/dL (7-20) Creatinine 0.6 mg/dL (0.6-1.0) Estimated GFR (Cockcroft-Gault) 149.9 Glucose Level 147 mg/dL (70-99) Hemoglobin A1c 9.3 % (4.8-5.6) Calcium Level 9.4 mg/dL (8.5-10.1) Glucose (Fingerstick) 97 mg/dL (70-99) 219 mg/dL (70-99) 348 mg/dL (70-99) Test 06/07/17 03:57 06/07/17 07:32 White Blood Count 4.6 x10^3/uL (4.0-11.0) Red Blood Count 4.02 x10^6/uL (3.50-5.40) Hemoglobin 12.0 g/dL (12.0-15.5) Hematocrit 36.2 % (36.0-47.0) Mean Corpuscular Volume 90 fL (79-100) Mean Corpuscular Hemoglobin 30 pg (25-35) Mean Corpuscular Hemoglobin Concent 33 g/dL (31-37) Red Cell Distribution Width 13.4 % (11.5-14.5) Platelet Count 378 x10^3/uL (140-400) Neutrophils (%) (Auto) 42 % (31-73) Lymphocytes (%) (Auto) 45 % (24-48) Monocytes (%) (Auto) 10 % (0-9) Eosinophils (%) (Auto) 1 % (0-3) Basophils (%) (Auto) 1 % (0-3) Neutrophils # (Auto) 2.0 x10^3uL (1.8-7.7) Lymphocytes # (Auto) 2.1 x10^3/uL (1.0-4.8) Monocytes # (Auto) 0.5 x10^3/uL (0.0-1.1) Eosinophils # (Auto) 0.1 x10^3/uL (0.0-0.7) Basophils # (Auto) 0.1 x10^3/uL (0.0-0.2) Sodium Level 139 mmol/L (136-145) Potassium Level 4.2 mmol/L (3.5-5.1) Chloride Level 102 mmol/L (98-107) Carbon Dioxide Level 31 mmol/L (21-32) Anion Gap 6 (6-14) Blood Urea Nitrogen 14 mg/dL (7-20) Creatinine 0.7 mg/dL (0.6-1.0) Estimated GFR (Cockcroft-Gault) 125.5 Glucose Level 275 mg/dL (70-99) Calcium Level 9.0 mg/dL (8.5-10.1) Glucose (Fingerstick) 167 mg/dL (70-99) Laboratory Tests Test 06/06/17 11:16 06/06/17 16:40 06/06/17 20:43 06/07/17 03:57 Glucose (Fingerstick) 97 mg/dL (70-99) 219 mg/dL (70-99) 348 mg/dL (70-99) White Blood Count 4.6 x10^3/uL (4.0-11.0) Red Blood Count 4.02 x10^6/uL (3.50-5.40) Hemoglobin 12.0 g/dL (12.0-15.5) Hematocrit 36.2 % (36.0-47.0) Mean Corpuscular Volume 90 fL (79-100) Mean Corpuscular Hemoglobin 30 pg (25-35) Mean Corpuscular Hemoglobin Concent 33 g/dL (31-37) Red Cell Distribution Width 13.4 % (11.5-14.5) Platelet Count 378 x10^3/uL (140-400) Neutrophils (%) (Auto) 42 % (31-73) Lymphocytes (%) (Auto) 45 % (24-48) Monocytes (%) (Auto) 10 % (0-9) Eosinophils (%) (Auto) 1 % (0-3) Basophils (%) (Auto) 1 % (0-3) Neutrophils # (Auto) 2.0 x10^3uL (1.8-7.7) Lymphocytes # (Auto) 2.1 x10^3/uL (1.0-4.8) Monocytes # (Auto) 0.5 x10^3/uL (0.0-1.1) Eosinophils # (Auto) 0.1 x10^3/uL (0.0-0.7) Basophils # (Auto) 0.1 x10^3/uL (0.0-0.2) Sodium Level 139 mmol/L (136-145) Potassium Level 4.2 mmol/L (3.5-5.1) Chloride Level 102 mmol/L (98-107) Carbon Dioxide Level 31 mmol/L (21-32) Anion Gap 6 (6-14) Blood Urea Nitrogen 14 mg/dL (7-20) Creatinine 0.7 mg/dL (0.6-1.0) Estimated GFR (Cockcroft-Gault) 125.5 Glucose Level 275 mg/dL (70-99) Calcium Level 9.0 mg/dL (8.5-10.1) Test 06/07/17 07:32 Glucose (Fingerstick) 167 mg/dL (70-99) Problem List Problems Medical Problems: (1) Intractable abdominal pain Status: Acute (2) Nausea and vomiting Status: Acute (3) Uncontrolled diabetes mellitus Status: Acute Assessment/Plan abd pain, suspect secondary to chronic cholecystitis will ask GI to evaluate maximize glucose and blood pressure tentatively plan lap armando with grams on 06/10 Problems: LIZA SPARKS MD Jun 07, 2017 09:54
[2017-06-07 11:12] VITALS: BP 141/99
--- NOTE | 2017-06-07 11:15 | PDOC2 ---
GI CONSULT Reason For Consult: Abd pain HPI: HPI: 22 y/o female known to GI from previous evaluation in 04/2017. Drowsy during my interview, did not participate much. H/o poorly controlled DM and HTN. Previous imaging for abd pain and n/v showed GB wall thickening and w/ GB EF of 8%. Plan was for outpt surgery w/ co-morbid conditions better controlled. Back now w/ same issues. Did have GES this admission which was normal. Additional h/o GERD, did not continue PPI as outpt, still taking Tums but not bothered by heartburn recently. Restarted on Protonix here. Denies diarrhea/ constipation, bleeding. No previous EGD/colon. Reviewed w/ RN and in chart, tentatively scheduled for lap armando w/ IOC on 06/10/17 w/ Dr. [place]. PMH: PMH: IDDM, diabetic neuropathy, asthma, GERD, pancreatitis, I&D labial abscess, liver biopsy (for elevated LFTs, reports normal results, neg Hep panel 2013) FH: Family History: DM Social History: Smoke: No ALCOHOL: none Drugs: Marijuana (in the past) ROS: GEN: Denies fevers, chills, sweats HEENT: Denies blurred vision, sore throat CV: Denies chest pain RESP: Denies shortness of air, cough GI: Per HPI : Denies hematuria, dysuria ENDO: Denies weight changes NEURO: Denies confusion, dizziness MSK: Denies weakness, joint pain/swelling SKIN: Denies jaundice, pruritus Vitals: Vitals: Vital Signs Date Time Temp Pulse Resp B/P (MAP) Pulse Ox O2 Delivery O2 Flow Rate FiO2 06/07/17 10:27 95 Room Air 06/07/17 08:53 93 148/104 06/07/17 07:15 97.4 18 97.4 Labs: Labs: Laboratory Tests Test 06/06/17 11:16 06/06/17 16:40 06/06/17 20:43 06/07/17 03:57 Glucose (Fingerstick) 97 mg/dL (70-99) 219 mg/dL (70-99) 348 mg/dL (70-99) White Blood Count 4.6 x10^3/uL (4.0-11.0) Red Blood Count 4.02 x10^6/uL (3.50-5.40) Hemoglobin 12.0 g/dL (12.0-15.5) Hematocrit 36.2 % (36.0-47.0) Mean Corpuscular Volume 90 fL (79-100) Mean Corpuscular Hemoglobin 30 pg (25-35) Mean Corpuscular Hemoglobin Concent 33 g/dL (31-37) Red Cell Distribution Width 13.4 % (11.5-14.5) Platelet Count 378 x10^3/uL (140-400) Neutrophils (%) (Auto) 42 % (31-73) Lymphocytes (%) (Auto) 45 % (24-48) Monocytes (%) (Auto) 10 % (0-9) Eosinophils (%) (Auto) 1 % (0-3) Basophils (%) (Auto) 1 % (0-3) Neutrophils # (Auto) 2.0 x10^3uL (1.8-7.7) Lymphocytes # (Auto) 2.1 x10^3/uL (1.0-4.8) Monocytes # (Auto) 0.5 x10^3/uL (0.0-1.1) Eosinophils # (Auto) 0.1 x10^3/uL (0.0-0.7) Basophils # (Auto) 0.1 x10^3/uL (0.0-0.2) Sodium Level 139 mmol/L (136-145) Potassium Level 4.2 mmol/L (3.5-5.1) Chloride Level 102 mmol/L (98-107) Carbon Dioxide Level 31 mmol/L (21-32) Anion Gap 6 (6-14) Blood Urea Nitrogen 14 mg/dL (7-20) Creatinine 0.7 mg/dL (0.6-1.0) Estimated GFR (Cockcroft-Gault) 125.5 Glucose Level 275 mg/dL (70-99) Calcium Level 9.0 mg/dL (8.5-10.1) Test 06/07/17 07:32 Glucose (Fingerstick) 167 mg/dL (70-99) Allergies: Coded Allergies: No Known Medication Allergies (Verified Allergy, Unknown, 12/31/16) Medications: Current Medications Medications (Trade) Dose Ordered Sig/Bakari Route PRN Reason Start Time Stop Time Status Last Admin Dose Admin Lisinopril (Prinivil) 40 mg DAILY PO 06/07/17 09:00 06/07/17 08:53 Imaging: Imaging: Acute Abd Series 06/04/17 IMPRESSION: No acute abdominal abnormality is detected. GES 06/05/17 IMPRESSION: Normal gastric emptying time, T1/2 59 min. PE: GEN: NAD HEENT: Atraumatic, PERRL LUNGS: CTAB anteriorly HEART: RRR ABD: NABS, S/ND, RUQ and epigastric tenderness EXTREMITY: No edema SKIN: No rashes, no jaundice NEURO/PSYCH: A & O 3, drowsy A/P: A/P: IDDM, HTN -hyperglycemic, A1c >9 -note normal GES Recurrent upper abd pain, n/v Abnormal GB imaging GERD -on PPI, no previous EGD -- Agree w/ plans for cholecystectomy w/ IOC, will follow. Continue BP and DM treatment per primary. Continue PPI. MACKENZIE HOGAN Jun 07, 2017 11:15
[2017-06-07] MEDS: oxyCODONE/APAP 10/325 1 TAB TABLET PO PRN ×3 (11:29→21:22)
--- NOTE | 2017-06-07 12:42 | PDOC ---
PROGRESS NOTES Chief Complaint Chief Complaint abd pain with N/V, with chronic cholecystitis uncontrolled DM type 1 History Asthma GERD chronic cholecystitis No gastroparesis HTN accelerated has insurance, said compliance with her insulin plan: sx consulted, pt supposed to fu with sx for chronic cholecystitis, but glucose not controlled well check hba1c 9.3 change insulin to levemir 15u qhs, aspart 5u tid, ssi GES neg add protonix dvt ppx gi soft diet now add lortab INCREAase lisinopril to 40mg daily GI consult. plan to do lap armando on saturday as per sx increase pain meds History of Present Illness History of Present Illness no fever, chills, sob or chest pain N/V slightly better , but still moderate abd pain, hypoglycemia better hypoglycemia at home too Vitals Vitals Vital Signs Date Time Temp Pulse Resp B/P (MAP) Pulse Ox O2 Delivery O2 Flow Rate FiO2 06/07/17 11:29 96 Room Air 06/07/17 11:12 98.2 104 16 141/99 (113) 98.2 Physical Exam General: Alert, Oriented X3, Cooperative, mild distress Heart: Regular rate, Normal S1, Normal S2, No murmurs Lungs: Clear, Other Abdomen: Soft, Other (TTP RUQ) Extremities: No clubbing, No cyanosis Skin: No rashes, No breakdown Labs LABS Laboratory Tests Test 06/06/17 16:40 06/06/17 20:43 06/07/17 03:57 06/07/17 07:32 Glucose (Fingerstick) 219 mg/dL (70-99) 348 mg/dL (70-99) 167 mg/dL (70-99) White Blood Count 4.6 x10^3/uL (4.0-11.0) Red Blood Count 4.02 x10^6/uL (3.50-5.40) Hemoglobin 12.0 g/dL (12.0-15.5) Hematocrit 36.2 % (36.0-47.0) Mean Corpuscular Volume 90 fL (79-100) Mean Corpuscular Hemoglobin 30 pg (25-35) Mean Corpuscular Hemoglobin Concent 33 g/dL (31-37) Red Cell Distribution Width 13.4 % (11.5-14.5) Platelet Count 378 x10^3/uL (140-400) Neutrophils (%) (Auto) 42 % (31-73) Lymphocytes (%) (Auto) 45 % (24-48) Monocytes (%) (Auto) 10 % (0-9) Eosinophils (%) (Auto) 1 % (0-3) Basophils (%) (Auto) 1 % (0-3) Neutrophils # (Auto) 2.0 x10^3uL (1.8-7.7) Lymphocytes # (Auto) 2.1 x10^3/uL (1.0-4.8) Monocytes # (Auto) 0.5 x10^3/uL (0.0-1.1) Eosinophils # (Auto) 0.1 x10^3/uL (0.0-0.7) Basophils # (Auto) 0.1 x10^3/uL (0.0-0.2) Sodium Level 139 mmol/L (136-145) Potassium Level 4.2 mmol/L (3.5-5.1) Chloride Level 102 mmol/L (98-107) Carbon Dioxide Level 31 mmol/L (21-32) Anion Gap 6 (6-14) Blood Urea Nitrogen 14 mg/dL (7-20) Creatinine 0.7 mg/dL (0.6-1.0) Estimated GFR (Cockcroft-Gault) 125.5 Glucose Level 275 mg/dL (70-99) Calcium Level 9.0 mg/dL (8.5-10.1) Test 06/07/17 11:34 Glucose (Fingerstick) 91 mg/dL (70-99) Assessment and Plan Assessmemt and Plan Problems Medical Problems: (1) Intractable abdominal pain Status: Acute (2) Nausea and vomiting Status: Acute (3) Uncontrolled diabetes mellitus Status: Acute Problems: Comment Review of Relevant I have reviewed the following items cristela (where applicable) has been applied. Labs Laboratory Tests Test 06/05/17 16:16 06/05/17 20:31 06/06/17 07:17 06/06/17 09:49 Glucose (Fingerstick) 321 mg/dL (70-99) 106 mg/dL (70-99) 154 mg/dL (70-99) White Blood Count 5.0 x10^3/uL (4.0-11.0) Red Blood Count 4.32 x10^6/uL (3.50-5.40) Hemoglobin 13.2 g/dL (12.0-15.5) Hematocrit 38.2 % (36.0-47.0) Mean Corpuscular Volume 88 fL (79-100) Mean Corpuscular Hemoglobin 31 pg (25-35) Mean Corpuscular Hemoglobin Concent 35 g/dL (31-37) Red Cell Distribution Width 13.5 % (11.5-14.5) Platelet Count 419 x10^3/uL (140-400) Neutrophils (%) (Auto) 58 % (31-73) Lymphocytes (%) (Auto) 32 % (24-48) Monocytes (%) (Auto) 7 % (0-9) Eosinophils (%) (Auto) 1 % (0-3) Basophils (%) (Auto) 1 % (0-3) Neutrophils # (Auto) 2.9 x10^3uL (1.8-7.7) Lymphocytes # (Auto) 1.6 x10^3/uL (1.0-4.8) Monocytes # (Auto) 0.4 x10^3/uL (0.0-1.1) Eosinophils # (Auto) 0.0 x10^3/uL (0.0-0.7) Basophils # (Auto) 0.1 x10^3/uL (0.0-0.2) Sodium Level 139 mmol/L (136-145) Potassium Level 3.7 mmol/L (3.5-5.1) Chloride Level 103 mmol/L (98-107) Carbon Dioxide Level 27 mmol/L (21-32) Anion Gap 9 (6-14) Blood Urea Nitrogen 8 mg/dL (7-20) Creatinine 0.6 mg/dL (0.6-1.0) Estimated GFR (Cockcroft-Gault) 149.9 Glucose Level 147 mg/dL (70-99) Hemoglobin A1c 9.3 % (4.8-5.6) Calcium Level 9.4 mg/dL (8.5-10.1) Test 06/06/17 11:16 06/06/17 16:40 06/06/17 20:43 06/07/17 03:57 Glucose (Fingerstick) 97 mg/dL (70-99) 219 mg/dL (70-99) 348 mg/dL (70-99) White Blood Count 4.6 x10^3/uL (4.0-11.0) Red Blood Count 4.02 x10^6/uL (3.50-5.40) Hemoglobin 12.0 g/dL (12.0-15.5) Hematocrit 36.2 % (36.0-47.0) Mean Corpuscular Volume 90 fL (79-100) Mean Corpuscular Hemoglobin 30 pg (25-35) Mean Corpuscular Hemoglobin Concent 33 g/dL (31-37) Red Cell Distribution Width 13.4 % (11.5-14.5) Platelet Count 378 x10^3/uL (140-400) Neutrophils (%) (Auto) 42 % (31-73) Lymphocytes (%) (Auto) 45 % (24-48) Monocytes (%) (Auto) 10 % (0-9) Eosinophils (%) (Auto) 1 % (0-3) Basophils (%) (Auto) 1 % (0-3) Neutrophils # (Auto) 2.0 x10^3uL (1.8-7.7) Lymphocytes # (Auto) 2.1 x10^3/uL (1.0-4.8) Monocytes # (Auto) 0.5 x10^3/uL (0.0-1.1) Eosinophils # (Auto) 0.1 x10^3/uL (0.0-0.7) Basophils # (Auto) 0.1 x10^3/uL (0.0-0.2) Sodium Level 139 mmol/L (136-145) Potassium Level 4.2 mmol/L (3.5-5.1) Chloride Level 102 mmol/L (98-107) Carbon Dioxide Level 31 mmol/L (21-32) Anion Gap 6 (6-14) Blood Urea Nitrogen 14 mg/dL (7-20) Creatinine 0.7 mg/dL (0.6-1.0) Estimated GFR (Cockcroft-Gault) 125.5 Glucose Level 275 mg/dL (70-99) Calcium Level 9.0 mg/dL (8.5-10.1) Test 06/07/17 07:32 06/07/17 11:34 Glucose (Fingerstick) 167 mg/dL (70-99) 91 mg/dL (70-99) Laboratory Tests Test 06/06/17 16:40 06/06/17 20:43 06/07/17 03:57 06/07/17 07:32 Glucose (Fingerstick) 219 mg/dL (70-99) 348 mg/dL (70-99) 167 mg/dL (70-99) White Blood Count 4.6 x10^3/uL (4.0-11.0) Red Blood Count 4.02 x10^6/uL (3.50-5.40) Hemoglobin 12.0 g/dL (12.0-15.5) Hematocrit 36.2 % (36.0-47.0) Mean Corpuscular Volume 90 fL (79-100) Mean Corpuscular Hemoglobin 30 pg (25-35) Mean Corpuscular Hemoglobin Concent 33 g/dL (31-37) Red Cell Distribution Width 13.4 % (11.5-14.5) Platelet Count 378 x10^3/uL (140-400) Neutrophils (%) (Auto) 42 % (31-73) Lymphocytes (%) (Auto) 45 % (24-48) Monocytes (%) (Auto) 10 % (0-9) Eosinophils (%) (Auto) 1 % (0-3) Basophils (%) (Auto) 1 % (0-3) Neutrophils # (Auto) 2.0 x10^3uL (1.8-7.7) Lymphocytes # (Auto) 2.1 x10^3/uL (1.0-4.8) Monocytes # (Auto) 0.5 x10^3/uL (0.0-1.1) Eosinophils # (Auto) 0.1 x10^3/uL (0.0-0.7) Basophils # (Auto) 0.1 x10^3/uL (0.0-0.2) Sodium Level 139 mmol/L (136-145) Potassium Level 4.2 mmol/L (3.5-5.1) Chloride Level 102 mmol/L (98-107) Carbon Dioxide Level 31 mmol/L (21-32) Anion Gap 6 (6-14) Blood Urea Nitrogen 14 mg/dL (7-20) Creatinine 0.7 mg/dL (0.6-1.0) Estimated GFR (Cockcroft-Gault) 125.5 Glucose Level 275 mg/dL (70-99) Calcium Level 9.0 mg/dL (8.5-10.1) Test 06/07/17 11:34 Glucose (Fingerstick) 91 mg/dL (70-99) Medications Current Medications Fentanyl Citrate (Fentanyl 2ml Vial) 50 mcg PRN Q15MIN PRN IV PAIN GREATER THAN 3/10 Last administered on 06/04/17 18:53; Start 06/04/17 at 17:30; Stop at 17:29; Status DC Sodium Chloride 1,000 ml @ 1,000 mls/hr Q1H IV Last administered on 06/04/17 18:48; Start 06/04/17 at 17:19; Stop 06/04/17 at 18:18; Status DC Metoclopramide HCl (Reglan) 10 mg 1X ONCE IV Last administered on 06/04/17 18 :50; Start 06/04/17 at 17:30; Stop 06/04/17 at 17:31; Status DC Sodium Chloride 1,000 ml @ 150 mls/hr Q6H40M IV Last administered on 21:20; Start 06/04/17 at 19:09; Stop 06/05/17 at 02:43; Status DC Ondansetron HCl (Zofran) 4 mg PRN Q6HRS PRN IV NAUSEA/VOMITING Last administered on 06/06/17 14:27; Start 06/04/17 at 19:15 Prochlorperazine Edisylate (Compazine) 10 mg PRN Q6HRS PRN IV NAUSEA/VOMITING; Start 06/04/17 at 19:15 Prochlorperazine (Compazine) 25 mg PRN Q12HR PRN [place] NAUSEA/VOMITING; Start at 19:15 Al Hydroxide/Mg Hydroxide (Mylanta Plus Xs) 30 ml PRN Q3HRS PRN PO HEARTBURN / GAS; Start 06/04/17 at 19:15 Calcium Carbonate/ Glycine (Tums) 500 mg PRN Q3HRS PRN PO UPSET STOMACH; Start 06/04/17 at 19:15 Zolpidem Tartrate (Ambien) 5 mg PRN QHS PRN PO INSOMNIA, MAY REPEAT IN 1HR Last administered on 06/05/17 22:55; Start 06/04/17 at 19:15 Oxycodone HCl (Roxicodone) 5 mg PRN Q3HRS PRN PO BREAKTHROUGH PAIN Last administered on 06/07/17 08:52; Start 06/04/17 at 19:15 Morphine Sulfate 2 mg PRN Q2HR PRN IV PAIN Last administered on 06/05/17 10:36 ; Start 06/04/17 at 19:15 Acetaminophen (Tylenol) 650 mg PRN Q6HRS PRN PO Headaches, Temp > 101.5F; Start 06/04/17 at 19:15 Ibuprofen (Motrin) 400 mg PRN Q6HRS PRN PO MILD PAIN Last administered on 21:19; Start 06/04/17 at 19:15; Stop 06/05/17 at 09:45; Status DC Docusate Sodium (Colace) 100 mg BID PO Last administered on 06/07/17 08:52; Start 06/04/17 at 21:00 Magnesium Hydroxide (Milk Of Magnesia) 2,400 mg PRN Q12HR PRN PO CONSTIPATION; Start 06/04/17 at 19:15 Lactulose 20 gm PRN Q12HR PRN PO CONSTIPATION; Start 06/04/17 at 19:15 Bisacodyl (Dulcolax Supp) 10 mg PRN DAILY PRN [place] CONSTIPATION; Start 06/04/17 at 19:15 Insulin Aspart (NovoLOG) 0-9 UNITS TIDWMEALS SQ Last administered on 06/07/17 09:13; Start 06/05/17 at 08:00 Dextrose (Dextrose 50%-Water Syringe) 12.5 gm PRN Q15MIN PRN IV SEE COMMENTS; Start 06/04/17 at 19:15 Acetaminophen/ Hydrocodone Bitart (Lortab 10/325) 1 tab PRN Q6HRS PRN PO PAIN Last administered on 06/07/17 01:17; Start 06/04/17 at 19:15; Stop 06/07/17 at 09:25; Status DC Insulin Detemir (Levemir) 20 units HS SQ Last administered on 06/04/17 21:35; Start 06/04/17 at 21:00; Stop 06/05/17 at 09:45; Status DC Lisinopril (Prinivil) 20 mg DAILY PO Last administered on 06/06/17 08:48; Start 06/05/17 at 09:00; Stop 06/06/17 at 09:11; Status DC Gabapentin (Neurontin) 300 mg TID PO Last administered on 06/07/17 08:52; Start 06/04/17 at 21:00 Insulin Aspart (NovoLOG) 10 units TIDAC SQ ; Start 06/05/17 at 07:30; Stop 06/05 at 09:45; Status DC Metoclopramide HCl (Reglan) 10 mg TID IV Last administered on 06/06/17 21:35; Start 06/04/17 at 21:00 Prochlorperazine Edisylate (Compazine) 10 mg PRN TID PRN IV NAUSEA/VOMITING; Start 06/04/17 at 19:15; Status Cancel Insulin Aspart (NovoLOG) 12 units 1X ONCE SQ Last administered on 06/04/17 22 :18; Start 06/04/17 at 22:15; Stop 06/04/17 at 22:16; Status DC Insulin Aspart (NovoLOG) 5 units TIDAC SQ Last administered on 06/07/17 09:12 ; Start 06/05/17 at 11:30 Insulin Detemir (Levemir) 15 units HS SQ Last administered on 06/06/17 21:43; Start 06/05/17 at 21:00 Senna/Docusate Sodium (Senna Plus) 1 tab BID PO Last administered on 06/07/17 08:52; Start 06/05/17 at 10:30 Docusate Sodium (Colace) 100 mg BID PO ; Start 06/05/17 at 21:00; Status UNV Magnesium Hydroxide (Milk Of Magnesia) 2,400 mg PRN Q12HR PRN PO CONSTIPATION; Start 06/05/17 at 09:45; Status UNV Pantoprazole Sodium (Protonix) 40 mg DAILYAC PO Last administered on 06/07/17 08:52; Start 06/05/17 at 10:30 Lisinopril (Prinivil) 40 mg DAILY PO Last administered on 06/07/17 08:53; Start 06/07/17 at 09:00 Acetaminophen/ Hydrocodone Bitart (Lortab 5/325) 1 tab PRN Q4HRS PRN PO PAIN; Start 06/06/17 at 09:15; Stop 06/07/17 at 09:25; Status DC Oxycodone/ Acetaminophen (Percocet 10/325) 1 tab PRN Q4HRS PRN PO PAIN Last administered on 06/07/17t 11:29; Start 06/07/17 at 09:30 Cefazolin Sodium/ Dextrose 50 ml @ 100 mls/hr 1X PREOP IV ; Start 06/07/17 at 10:15; Stop 06/10/17 at 18:00 Active Scripts Active Lisinopril 20 Mg Tablet 1 Tab PO DAILY Bactrim Ds Tablet (Sulfamethoxazole/Trimethoprim) 1 Each Tablet 1 Tab PO BID Hydrocodone-Apap 10-325 (Hydrocodone Bit/Acetaminophen) 1 Each Tablet 1 Tab PO PRN Q6HRS PRN Levemir Flextouch (Insulin Detemir) 100 Unit/1 Ml Insuln.pen 20 Unit SQ HS 30 Days Lisinopril 20 Mg Tablet 20 Mg PO DAILY Novolog (Insulin Aspart) 100 Unit/1 Ml Cartridge 10 Units SQ TIDAC 30 Days Reported Gabapentin 300 Mg Capsule 300 Mg PO TID Vitals/I & O Vital Sign - Last 24 Hours 06/06/17 06/06/17 06/06/17 06/06/17 14:48 17:21 19:00 20:00 Temp 97.6 98.1 97.6 98.1 Pulse 101 107 Resp 18 16 20 B/P (MAP) 128/88 (101) 138/97 (111) Pulse Ox 100 99 O2 Delivery Room Air Room Air Room Air Room Air 06/06/17 06/06/17 06/07/17 06/07/17 20:11 23:00 01:17 02:15 Temp 97.9 97.9 Pulse 110 Resp 18 20 18 18 B/P (MAP) 145/95 (112) Pulse Ox 96 94 O2 Delivery Room Air Room Air Room Air Room Air 06/07/17 06/07/17 06/07/17 06/07/17 02:48 04:28 05:30 07:15 Temp 98.1 97.4 98.1 97.4 Pulse 104 93 Resp 16 18 18 18 B/P (MAP) 146/100 (115) 148/104 (119) Pulse Ox 94 95 O2 Delivery Room Air Room Air 06/07/17 06/07/17 06/07/17 06/07/17 08:00 08:52 08:53 10:27 Pulse 93 B/P (MAP) 148/104 Pulse Ox 95 95 O2 Delivery Room Air Room Air Room Air 06/07/17 06/07/17 11:12 11:29 Temp 98.2 98.2 Pulse 104 Resp 16 B/P (MAP) 141/99 (113) Pulse Ox 96 96 O2 Delivery Room Air Room Air Intake and Output 06/06/17 06/06/17 06/07/17 15:00 23:00 07:00 Intake Total 800 ml 100 ml Balance 800 ml 100 ml RALF TREVINO MD Jun 07, 2017 12:42
[2017-06-07 15:13] VITALS: BP 120/85
[2017-06-07 19:00] VITALS: BP 95/50
[2017-06-07] MEDS: traZODone 50 MG TABLET. PO PRN (21:21)
[2017-06-07] MEDS: INSULIN DETEMIR 300 UNITS/3 ML INSULN.PEN. SQ SCH (21:29)
[2017-06-07 23:00] VITALS: BP 114/69
[2017-06-07] MEDS: ZOLPIDEM 5 MG TABLET. PO PRN (23:50)
[2017-06-08 03:00] VITALS: BP 119/80
[2017-06-08] MEDS: oxyCODONE/APAP 10/325 1 TAB TABLET PO PRN ×4 (06:11→20:50)
[2017-06-08] MEDS: PANTOPRAZOLE 40 MG TABLET.DR. PO SCH (06:13)
[2017-06-08 07:15] VITALS: BP 111/63
[2017-06-08] MEDS: INSULIN ASPART 300 UNITS/3 ML INSULN.PEN SQ SCH ×6 (07:30→16:37)
[2017-06-08] MEDS: METOCLOPRAMIDE HCL 10 MG/2 ML VIAL. IV SCH ×3 (09:00→21:00)
[2017-06-08] MEDS: DOCUSATE SODIUM 100 MG CAPSULE. PO SCH ×2 (09:03→20:49)
[2017-06-08] MEDS: GABAPENTIN 300 MG CAPSULE. PO SCH ×3 (09:03→20:49)
[2017-06-08] MEDS: LISINOPRIL 40 MG TABLET. PO SCH (09:04)
[2017-06-08] MEDS: SENNOSIDES/DOCUSATE 8.6/50MG TABLET. PO SCH ×2 (09:04→20:49)
[2017-06-08] MEDS: MORPHINE SULFATE 4 MG/ML DISP.SYRIN. IV PRN (09:25)
[2017-06-08 10:20] VITALS: BP 138/95
--- NOTE | 2017-06-08 12:01 | PDOC ---
PROGRESS NOTES Chief Complaint Chief Complaint abd pain with N/V, with chronic cholecystitis uncontrolled DM type 1 History Asthma GERD chronic cholecystitis gastroparesis HTN accelerated has insurance, said compliance with her insulin History of Present Illness History of Present Illness BS ok BUt claims abd pain and nausea, no emesis though BUt did not eat much breakfast Told her about the difficulty managing her BS if her diet is haywire SHe understands PLanned for lap armando saturday BMP looks good, no gap, no DKA PLAN: LEvemir 15 qhs works well (dont use levemir 20 qhs as her home regimen- gets hypoglycemic CPM LAp armando saturday [employer] 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 Vitals Vitals Vital Signs Date Time Temp Pulse Resp B/P (MAP) Pulse Ox O2 Delivery O2 Flow Rate FiO2 06/08/17 10:48 97 Room Air 06/08/17 10:20 98.8 96 16 138/95 (109) 98.8 Physical Exam General: Alert, Oriented X3, Cooperative, mild distress Heart: Regular rate, Normal S1, Normal S2, No murmurs Lungs: Clear, Other Abdomen: Soft, Other (TTP RUQ) Extremities: No clubbing, No cyanosis Skin: No rashes, No breakdown Labs LABS Laboratory Tests Test 06/07/17 17:03 06/07/17 20:41 06/07/17 21:02 06/08/17 07:17 Glucose (Fingerstick) 248 mg/dL (70-99) 43 mg/dL (70-99) 83 mg/dL (70-99) 195 mg/dL (70-99) Test 06/08/17 10:23 Glucose (Fingerstick) 266 mg/dL (70-99) Review of Systems Review of Systems abd pain, nausea Assessment and Plan Assessmemt and Plan Problems Medical Problems: (1) Intractable abdominal pain Status: Acute (2) Nausea and vomiting Status: Acute (3) Uncontrolled diabetes mellitus Status: Acute Problems: Comment Review of Relevant I have reviewed the following items cristela (where applicable) has been applied. Labs Laboratory Tests Test 06/06/17 16:40 06/06/17 20:43 06/07/17 03:57 06/07/17 07:32 Glucose (Fingerstick) 219 mg/dL (70-99) 348 mg/dL (70-99) 167 mg/dL (70-99) White Blood Count 4.6 x10^3/uL (4.0-11.0) Red Blood Count 4.02 x10^6/uL (3.50-5.40) Hemoglobin 12.0 g/dL (12.0-15.5) Hematocrit 36.2 % (36.0-47.0) Mean Corpuscular Volume 90 fL (79-100) Mean Corpuscular Hemoglobin 30 pg (25-35) Mean Corpuscular Hemoglobin Concent 33 g/dL (31-37) Red Cell Distribution Width 13.4 % (11.5-14.5) Platelet Count 378 x10^3/uL (140-400) Neutrophils (%) (Auto) 42 % (31-73) Lymphocytes (%) (Auto) 45 % (24-48) Monocytes (%) (Auto) 10 % (0-9) Eosinophils (%) (Auto) 1 % (0-3) Basophils (%) (Auto) 1 % (0-3) Neutrophils # (Auto) 2.0 x10^3uL (1.8-7.7) Lymphocytes # (Auto) 2.1 x10^3/uL (1.0-4.8) Monocytes # (Auto) 0.5 x10^3/uL (0.0-1.1) Eosinophils # (Auto) 0.1 x10^3/uL (0.0-0.7) Basophils # (Auto) 0.1 x10^3/uL (0.0-0.2) Sodium Level 139 mmol/L (136-145) Potassium Level 4.2 mmol/L (3.5-5.1) Chloride Level 102 mmol/L (98-107) Carbon Dioxide Level 31 mmol/L (21-32) Anion Gap 6 (6-14) Blood Urea Nitrogen 14 mg/dL (7-20) Creatinine 0.7 mg/dL (0.6-1.0) Estimated GFR (Cockcroft-Gault) 125.5 Glucose Level 275 mg/dL (70-99) Calcium Level 9.0 mg/dL (8.5-10.1) Test 06/07/17 11:34 06/07/17 17:03 06/07/17 20:41 06/07/17 21:02 Glucose (Fingerstick) 91 mg/dL (70-99) 248 mg/dL (70-99) 43 mg/dL (70-99) 83 mg/dL (70-99) Test 06/08/17 07:17 06/08/17 10:23 Glucose (Fingerstick) 195 mg/dL (70-99) 266 mg/dL (70-99) Laboratory Tests Test 06/07/17 17:03 06/07/17 20:41 06/07/17 21:02 06/08/17 07:17 Glucose (Fingerstick) 248 mg/dL (70-99) 43 mg/dL (70-99) 83 mg/dL (70-99) 195 mg/dL (70-99) Test 06/08/17 10:23 Glucose (Fingerstick) 266 mg/dL (70-99) Medications Current Medications Fentanyl Citrate (Fentanyl 2ml Vial) 50 mcg PRN Q15MIN PRN IV PAIN GREATER THAN 3/10 Last administered on 06/04/17 18:53; Start 06/04/17 at 17:30; Stop at 17:29; Status DC Sodium Chloride 1,000 ml @ 1,000 mls/hr Q1H IV Last administered on 06/04/17 18:48; Start 06/04/17 at 17:19; Stop 06/04/17 at 18:18; Status DC Metoclopramide HCl (Reglan) 10 mg 1X ONCE IV Last administered on 06/04/17 18 :50; Start 06/04/17 at 17:30; Stop 06/04/17 at 17:31; Status DC Sodium Chloride 1,000 ml @ 150 mls/hr Q6H40M IV Last administered on 21:20; Start 06/04/17 at 19:09; Stop 06/05/17 at 02:43; Status DC Ondansetron HCl (Zofran) 4 mg PRN Q6HRS PRN IV NAUSEA/VOMITING Last administered on 06/06/17 14:27; Start 06/04/17 at 19:15 Prochlorperazine Edisylate (Compazine) 10 mg PRN Q6HRS PRN IV NAUSEA/VOMITING; Start 06/04/17 at 19:15 Prochlorperazine (Compazine) 25 mg PRN Q12HR PRN [place] NAUSEA/VOMITING; Start at 19:15 Al Hydroxide/Mg Hydroxide (Mylanta Plus Xs) 30 ml PRN Q3HRS PRN PO HEARTBURN / GAS; Start 06/04/17 at 19:15 Calcium Carbonate/ Glycine (Tums) 500 mg PRN Q3HRS PRN PO UPSET STOMACH; Start 06/04/17 at 19:15 Zolpidem Tartrate (Ambien) 5 mg PRN QHS PRN PO INSOMNIA, MAY REPEAT IN 1HR Last administered on 06/07/17 23:50; Start 06/04/17 at 19:15 Oxycodone HCl (Roxicodone) 5 mg PRN Q3HRS PRN PO BREAKTHROUGH PAIN Last administered on 06/07/17 23:50; Start 06/04/17 at 19:15 Morphine Sulfate 2 mg PRN Q2HR PRN IV PAIN Last administered on 06/08/17 09:25 ; Start 06/04/17 at 19:15 Acetaminophen (Tylenol) 650 mg PRN Q6HRS PRN PO Headaches, Temp > 101.5F; Start 06/04/17 at 19:15 Ibuprofen (Motrin) 400 mg PRN Q6HRS PRN PO MILD PAIN Last administered on 21:19; Start 06/04/17 at 19:15; Stop 06/05/17 at 09:45; Status DC Docusate Sodium (Colace) 100 mg BID PO Last administered on 06/08/17 09:03; Start 06/04/17 at 21:00 Magnesium Hydroxide (Milk Of Magnesia) 2,400 mg PRN Q12HR PRN PO CONSTIPATION; Start 06/04/17 at 19:15 Lactulose 20 gm PRN Q12HR PRN PO CONSTIPATION; Start 06/04/17 at 19:15 Bisacodyl (Dulcolax Supp) 10 mg PRN DAILY PRN [place] CONSTIPATION; Start 06/04/17 at 19:15 Insulin Aspart (NovoLOG) 0-9 UNITS TIDWMEALS SQ Last administered on 06/07/17 17:30; Start 06/05/17 at 08:00 Dextrose (Dextrose 50%-Water Syringe) 12.5 gm PRN Q15MIN PRN IV SEE COMMENTS; Start 06/04/17 at 19:15 Acetaminophen/ Hydrocodone Bitart (Lortab 10/325) 1 tab PRN Q6HRS PRN PO PAIN Last administered on 06/07/17 01:17; Start 06/04/17 at 19:15; Stop 06/07/17 at 09:25; Status DC Insulin Detemir (Levemir) 20 units HS SQ Last administered on 06/04/17 21:35; Start 06/04/17 at 21:00; Stop 06/05/17 at 09:45; Status DC Lisinopril (Prinivil) 20 mg DAILY PO Last administered on 06/06/17 08:48; Start 06/05/17 at 09:00; Stop 06/06/17 at 09:11; Status DC Gabapentin (Neurontin) 300 mg TID PO Last administered on 06/08/17 09:03; Start 06/04/17 at 21:00 Insulin Aspart (NovoLOG) 10 units TIDAC SQ ; Start 06/05/17 at 07:30; Stop 06/05 at 09:45; Status DC Metoclopramide HCl (Reglan) 10 mg TID IV Last administered on 06/06/17 21:35; Start 06/04/17 at 21:00 Prochlorperazine Edisylate (Compazine) 10 mg PRN TID PRN IV NAUSEA/VOMITING; Start 06/04/17 at 19:15; Status Cancel Insulin Aspart (NovoLOG) 12 units 1X ONCE SQ Last administered on 06/04/17 22 :18; Start 06/04/17 at 22:15; Stop 06/04/17 at 22:16; Status DC Insulin Aspart (NovoLOG) 5 units TIDAC SQ Last administered on 06/07/17 17:29 ; Start 06/05/17 at 11:30 Insulin Detemir (Levemir) 15 units HS SQ Last administered on 06/07/17 21:29; Start 06/05/17 at 21:00 Senna/Docusate Sodium (Senna Plus) 1 tab BID PO Last administered on 06/08/17 09:04; Start 06/05/17 at 10:30 Docusate Sodium (Colace) 100 mg BID PO ; Start 06/05/17 at 21:00; Status UNV Magnesium Hydroxide (Milk Of Magnesia) 2,400 mg PRN Q12HR PRN PO CONSTIPATION; Start 06/05/17 at 09:45; Status UNV Pantoprazole Sodium (Protonix) 40 mg DAILYAC PO Last administered on 06/08/17 06:13; Start 06/05/17 at 10:30 Lisinopril (Prinivil) 40 mg DAILY PO Last administered on 06/08/17 09:04; Start 06/07/17 at 09:00 Acetaminophen/ Hydrocodone Bitart (Lortab 5/325) 1 tab PRN Q4HRS PRN PO PAIN; Start 06/06/17 at 09:15; Stop 06/07/17 at 09:25; Status DC Oxycodone/ Acetaminophen (Percocet 10/325) 1 tab PRN Q4HRS PRN PO PAIN Last administered on 06/08/17 06:11; Start 06/07/17 at 09:30 Cefazolin Sodium/ Dextrose 50 ml @ 100 mls/hr 1X PREOP IV ; Start 06/07/17 at 10:15; Stop 06/10/17 at 18:00 Ondansetron HCl (Zofran) 4 mg PRN Q6HRS PRN IV NAUSEA/VOMITING; Start 06/10/17 at 07:00; Stop 06/11/17 at 06:59 Fentanyl Citrate (Fentanyl 2ml Vial) 25 mcg PRN Q5MIN PRN IV MILD PAIN; Start 06/10/17 at 07:00; Stop 06/11/17 at 06:59 Fentanyl Citrate (Fentanyl 2ml Vial) 50 mcg PRN Q5MIN PRN IV MODERATE PAIN; Start 06/10/17 at 07:00; Stop 06/11/17 at 06:59 Morphine Sulfate 1 mg PRN Q10MIN PRN IV SEVERE PAIN; Start 06/10/17 at 07:00; Stop 06/11/17 at 06:59 Ringer's Solution 1,000 ml @ 30 mls/hr Q24H IV ; Start 06/10/17 at 07:00; Stop 06/10/17 at 18:59 Lidocaine HCl 2 ml PRN 1X PRN ID PRIOR TO IV START; Start 06/10/17 at 07:00; Stop 06/11/17 at 06:59 Hydromorphone HCl (Dilaudid) 0.5 mg PRN Q10MIN PRN IV SEV PAIN, Second choice; Start 06/10/17 at 07:00; Stop 06/11/17 at 06:59 Trazodone HCl (Desyrel) 50 mg PRN QHS PRN PO INSOMNIA Last administered on 06/07t 21:21; Start 06/07/17 at 16:00 Active Scripts Active Lisinopril 20 Mg Tablet 1 Tab PO DAILY Bactrim Ds Tablet (Sulfamethoxazole/Trimethoprim) 1 Each Tablet 1 Tab PO BID Hydrocodone-Apap 10-325 (Hydrocodone Bit/Acetaminophen) 1 Each Tablet 1 Tab PO PRN Q6HRS PRN Levemir Flextouch (Insulin Detemir) 100 Unit/1 Ml Insuln.pen 20 Unit SQ HS 30 Days Lisinopril 20 Mg Tablet 20 Mg PO DAILY Novolog (Insulin Aspart) 100 Unit/1 Ml Cartridge 10 Units SQ TIDAC 30 Days Reported Gabapentin 300 Mg Capsule 300 Mg PO TID Vitals/I & O Vital Sign - Last 24 Hours 06/07/17 06/07/17 06/07/17 06/07/17 13:23 15:13 16:06 17:26 Temp 97.7 97.7 Pulse 96 Resp 18 B/P (MAP) 120/85 (97) Pulse Ox 96 97 97 97 O2 Delivery Room Air Room Air Room Air Room Air 06/07/17 06/07/17 06/07/17 06/07/17 19:00 20:00 21:22 22:25 Temp 97.5 97.5 Pulse 104 Resp 18 18 18 B/P (MAP) 95/50 (65) Pulse Ox 98 O2 Delivery Room Air Room Air Room Air 06/07/17 06/07/17 06/08/17 06/08/17 23:00 23:50 00:50 03:00 Temp 98.6 98.8 98.6 98.8 Pulse 99 102 Resp 18 20 18 18 B/P (MAP) 114/69 (84) 119/80 (93) Pulse Ox 98 98 98 O2 Delivery Room Air Room Air Room Air 06/08/17 06/08/17 06/08/17 06/08/17 06:11 07:15 07:59 08:00 Temp 97.9 97.9 Pulse 91 Resp 18 18 B/P (MAP) 111/63 (79) Pulse Ox 97 97 O2 Delivery Room Air Room Air Room Air Room Air 06/08/17 06/08/17 06/08/17 06/08/17 09:04 09:25 10:20 10:48 Temp 98.8 98.8 Pulse 91 96 Resp 16 B/P (MAP) 111/63 138/95 (109) Pulse Ox 97 95 97 O2 Delivery Room Air Room Air Room Air Intake and Output 06/07/17 06/07/17 06/08/17 14:59 22:59 06:59 Intake Total 420 ml 650 ml Output Total 2 ml Balance 420 ml -2 ml 650 ml LC ABRAHAM MD Jun 08, 2017 12:01
--- NOTE | 2017-06-08 13:48 | PDOC ---
SURGICAL PROGRESS NOTE Subjective still having RUQ pain not really eating Vital Signs Vital Signs Date Time Temp Pulse Resp B/P (MAP) Pulse Ox O2 Delivery O2 Flow Rate FiO2 06/08/17 13:24 97 Room Air 06/08/17 10:20 98.8 96 16 138/95 (109) 98.8 I&O Intake and Output 06/08/17 06:59 Intake Total 1070 ml Output Total 2 ml Balance 1068 ml Intake Oral 1070 ml Output Urine Total 2 ml # Bowel Movements 1 General: Alert, Oriented X3, Cooperative, No acute distress Abdomen: Soft, Other (RUQ pain) Labs Laboratory Tests Test 06/06/17 16:40 06/06/17 20:43 06/07/17 03:57 06/07/17 07:32 Glucose (Fingerstick) 219 mg/dL (70-99) 348 mg/dL (70-99) 167 mg/dL (70-99) White Blood Count 4.6 x10^3/uL (4.0-11.0) Red Blood Count 4.02 x10^6/uL (3.50-5.40) Hemoglobin 12.0 g/dL (12.0-15.5) Hematocrit 36.2 % (36.0-47.0) Mean Corpuscular Volume 90 fL (79-100) Mean Corpuscular Hemoglobin 30 pg (25-35) Mean Corpuscular Hemoglobin Concent 33 g/dL (31-37) Red Cell Distribution Width 13.4 % (11.5-14.5) Platelet Count 378 x10^3/uL (140-400) Neutrophils (%) (Auto) 42 % (31-73) Lymphocytes (%) (Auto) 45 % (24-48) Monocytes (%) (Auto) 10 % (0-9) Eosinophils (%) (Auto) 1 % (0-3) Basophils (%) (Auto) 1 % (0-3) Neutrophils # (Auto) 2.0 x10^3uL (1.8-7.7) Lymphocytes # (Auto) 2.1 x10^3/uL (1.0-4.8) Monocytes # (Auto) 0.5 x10^3/uL (0.0-1.1) Eosinophils # (Auto) 0.1 x10^3/uL (0.0-0.7) Basophils # (Auto) 0.1 x10^3/uL (0.0-0.2) Sodium Level 139 mmol/L (136-145) Potassium Level 4.2 mmol/L (3.5-5.1) Chloride Level 102 mmol/L (98-107) Carbon Dioxide Level 31 mmol/L (21-32) Anion Gap 6 (6-14) Blood Urea Nitrogen 14 mg/dL (7-20) Creatinine 0.7 mg/dL (0.6-1.0) Estimated GFR (Cockcroft-Gault) 125.5 Glucose Level 275 mg/dL (70-99) Calcium Level 9.0 mg/dL (8.5-10.1) Test 06/07/17 11:34 06/07/17 17:03 06/07/17 20:41 06/07/17 21:02 Glucose (Fingerstick) 91 mg/dL (70-99) 248 mg/dL (70-99) 43 mg/dL (70-99) 83 mg/dL (70-99) Test 06/08/17 07:17 06/08/17 10:23 Glucose (Fingerstick) 195 mg/dL (70-99) 266 mg/dL (70-99) Laboratory Tests Test 06/07/17 17:03 06/07/17 20:41 06/07/17 21:02 06/08/17 07:17 Glucose (Fingerstick) 248 mg/dL (70-99) 43 mg/dL (70-99) 83 mg/dL (70-99) 195 mg/dL (70-99) Test 06/08/17 10:23 Glucose (Fingerstick) 266 mg/dL (70-99) Problem List Problems Medical Problems: (1) Intractable abdominal pain Status: Acute (2) Nausea and vomiting Status: Acute (3) Uncontrolled diabetes mellitus Status: Acute Assessment/Plan chronic cholecystitis plans for lap armando saturday blood sugars still with high swings from high to low--try to optimize Problems: MAURA DEGROOT APRN Jun 08, 2017 13:48
[2017-06-08 14:44] VITALS: BP 125/94
[2017-06-08 19:30] VITALS: BP 127/86
[2017-06-08] MEDS: INSULIN DETEMIR 300 UNITS/3 ML INSULN.PEN. SQ SCH (20:55)
[2017-06-08] MEDS: traZODone 50 MG TABLET. PO PRN (22:14)
[2017-06-08 23:30] VITALS: BP 107/67
[2017-06-09] MEDS: oxyCODONE/APAP 10/325 1 TAB TABLET PO PRN ×5 (01:26→21:38)
[2017-06-09 03:15] VITALS: BP 101/52
[2017-06-09] MEDS: PANTOPRAZOLE 40 MG TABLET.DR. PO SCH (06:26)
[2017-06-09 07:03] VITALS: BP 138/93
--- NOTE | 2017-06-09 08:40 | PDOC ---
SURGICAL PROGRESS NOTE Subjective continued RUQ pain no questions about surgery Vital Signs Vital Signs Date Time Temp Pulse Resp B/P (MAP) Pulse Ox O2 Delivery O2 Flow Rate FiO2 06/09/17 07:03 97.7 96 16 138/93 (108) 96 Room Air 97.7 I&O Intake and Output 06/09/17 07:00 Intake Total 960 ml Balance 960 ml Intake Oral 960 ml # Voids 6 General: Alert, Oriented X3, Cooperative, No acute distress Abdomen: Soft, Other (RUQ pain) Labs Laboratory Tests Test 06/07/17 11:34 06/07/17 17:03 06/07/17 20:41 06/07/17 21:02 Glucose (Fingerstick) 91 mg/dL (70-99) 248 mg/dL (70-99) 43 mg/dL (70-99) 83 mg/dL (70-99) Test 06/08/17 07:17 06/08/17 10:23 06/08/17 16:09 06/08/17 19:28 Glucose (Fingerstick) 195 mg/dL (70-99) 266 mg/dL (70-99) 102 mg/dL (70-99) 412 mg/dL (70-99) Test 06/09/17 07:08 Glucose (Fingerstick) 317 mg/dL (70-99) Laboratory Tests Test 06/08/17 10:23 06/08/17 16:09 06/08/17 19:28 06/09/17 07:08 Glucose (Fingerstick) 266 mg/dL (70-99) 102 mg/dL (70-99) 412 mg/dL (70-99) 317 mg/dL (70-99) Problem List Problems Medical Problems: (1) Intractable abdominal pain Status: Acute (2) Nausea and vomiting Status: Acute (3) Uncontrolled diabetes mellitus Status: Acute Assessment/Plan diabetes, uncontrolled chronic cholecystitis OR in AM NPO after MN Problems: 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
--- NOTE | 2017-06-09 08:40 | PDOC ---
PROGRESS NOTES Chief Complaint Chief Complaint abd pain with N/V, with chronic cholecystitis uncontrolled DM type 1 Brittle DM History Asthma GERD chronic cholecystitis gastroparesis HTN accelerated has insurance, said compliance with her insulin History of Present Illness History of Present Illness BS NOW high Was hypoglycemic yesterday HGOme regimen is 5 TID and 20 qhs SLeepy, pain emds nausea meds OCcasional dry heaving But ate full breakfast today PLanned for lap armando for chronic cholecystitis on saturday PAin generalized, but more localized on RUQ area BMP no gap, no dka PLAN: INc levemir to 20 qh sKeep 5 TID as can get hypoglycemic (brittle DM) SOme iVF today prior to sx gladys LAp armando saturday HEavy 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 ANti nausea meds pain meds etc Vitals Vitals Vital Signs Date Time Temp Pulse Resp B/P (MAP) Pulse Ox O2 Delivery O2 Flow Rate FiO2 06/09/17 07:03 97.7 96 16 138/93 (108) 96 Room Air 97.7 Physical Exam General: Alert, Oriented X3, Cooperative, No acute distress Heart: Regular rate, Normal S1, Normal S2, No murmurs Lungs: Clear, Other Abdomen: Soft, Other (RUQ pain) Extremities: No clubbing, No cyanosis Skin: No rashes, No breakdown Labs LABS Laboratory Tests Test 06/08/17 10:23 06/08/17 16:09 06/08/17 19:28 06/09/17 07:08 Glucose (Fingerstick) 266 mg/dL (70-99) 102 mg/dL (70-99) 412 mg/dL (70-99) 317 mg/dL (70-99) Review of Systems Review of Systems nausea, abd pain Assessment and Plan Assessmemt and Plan Problems Medical Problems: (1) Intractable abdominal pain Status: Acute (2) Nausea and vomiting Status: Acute (3) Uncontrolled diabetes mellitus Status: Acute Problems: Comment Review of Relevant I have reviewed the following items cristela (where applicable) has been applied. Labs Laboratory Tests Test 06/07/17 11:34 06/07/17 17:03 06/07/17 20:41 06/07/17 21:02 Glucose (Fingerstick) 91 mg/dL (70-99) 248 mg/dL (70-99) 43 mg/dL (70-99) 83 mg/dL (70-99) Test 06/08/17 07:17 06/08/17 10:23 06/08/17 16:09 06/08/17 19:28 Glucose (Fingerstick) 195 mg/dL (70-99) 266 mg/dL (70-99) 102 mg/dL (70-99) 412 mg/dL (70-99) Test 06/09/17 07:08 Glucose (Fingerstick) 317 mg/dL (70-99) Laboratory Tests Test 06/08/17 10:23 06/08/17 16:09 06/08/17 19:28 06/09/17 07:08 Glucose (Fingerstick) 266 mg/dL (70-99) 102 mg/dL (70-99) 412 mg/dL (70-99) 317 mg/dL (70-99) Medications Current Medications Fentanyl Citrate (Fentanyl 2ml Vial) 50 mcg PRN Q15MIN PRN IV PAIN GREATER THAN 3/10 Last administered on 06/04/17 18:53; Start 06/04/17 at 17:30; Stop at 17:29; Status DC Sodium Chloride 1,000 ml @ 1,000 mls/hr Q1H IV Last administered on 06/04/17 18:48; Start 06/04/17 at 17:19; Stop 06/04/17 at 18:18; Status DC Metoclopramide HCl (Reglan) 10 mg 1X ONCE IV Last administered on 06/04/17 18 :50; Start 06/04/17 at 17:30; Stop 06/04/17 at 17:31; Status DC Sodium Chloride 1,000 ml @ 150 mls/hr Q6H40M IV Last administered on 21:20; Start 06/04/17 at 19:09; Stop 06/05/17 at 02:43; Status DC Ondansetron HCl (Zofran) 4 mg PRN Q6HRS PRN IV NAUSEA/VOMITING Last administered on 06/06/17 14:27; Start 06/04/17 at 19:15 Prochlorperazine Edisylate (Compazine) 10 mg PRN Q6HRS PRN IV NAUSEA/VOMITING; Start 06/04/17 at 19:15 Prochlorperazine (Compazine) 25 mg PRN Q12HR PRN DE NAUSEA/VOMITING; Start at 19:15 Al Hydroxide/Mg Hydroxide (Mylanta Plus Xs) 30 ml PRN Q3HRS PRN PO HEARTBURN / GAS; Start 06/04/17 at 19:15 Calcium Carbonate/ Glycine (Tums) 500 mg PRN Q3HRS PRN PO UPSET STOMACH; Start 06/04/17 at 19:15 Zolpidem Tartrate (Ambien) 5 mg PRN QHS PRN PO INSOMNIA, MAY REPEAT IN 1HR Last administered on 06/07/17 23:50; Start 06/04/17 at 19:15 Oxycodone HCl (Roxicodone) 5 mg PRN Q3HRS PRN PO BREAKTHROUGH PAIN Last administered on 06/07/17 23:50; Start 06/04/17 at 19:15 Morphine Sulfate 2 mg PRN Q2HR PRN IV PAIN Last administered on 06/08/17 09:25 ; Start 06/04/17 at 19:15 Acetaminophen (Tylenol) 650 mg PRN Q6HRS PRN PO Headaches, Temp > 101.5F; Start 06/04/17 at 19:15 Ibuprofen (Motrin) 400 mg PRN Q6HRS PRN PO MILD PAIN Last administered on 21:19; Start 06/04/17 at 19:15; Stop 06/05/17 at 09:45; Status DC Docusate Sodium (Colace) 100 mg BID PO Last administered on 06/08/17 20:49; Start 06/04/17 at 21:00 Magnesium Hydroxide (Milk Of Magnesia) 2,400 mg PRN Q12HR PRN PO CONSTIPATION ( 1ST CHOICE); Start 06/04/17 at 19:15 Lactulose 20 gm PRN Q12HR PRN PO CONSTIPATION (2ND CHOICE); Start 06/04/17 at 19:15 Bisacodyl (Dulcolax Supp) 10 mg PRN DAILY PRN DE CONSTIPATION; Start 06/04/17 at 19:15 Insulin Aspart (NovoLOG) 0-9 UNITS TIDWMEALS SQ Last administered on 06/07/17 17:30; Start 06/05/17 at 08:00 Dextrose (Dextrose 50%-Water Syringe) 12.5 gm PRN Q15MIN PRN IV SEE COMMENTS; Start 06/04/17 at 19:15 Acetaminophen/ Hydrocodone Bitart (Lortab 10/325) 1 tab PRN Q6HRS PRN PO PAIN Last administered on 06/07/17 01:17; Start 06/04/17 at 19:15; Stop 06/07/17 at 09:25; Status DC Insulin Detemir (Levemir) 20 units HS SQ Last administered on 06/04/17 21:35; Start 06/04/17 at 21:00; Stop 06/05/17 at 09:45; Status DC Lisinopril (Prinivil) 20 mg DAILY PO Last administered on 06/06/17 08:48; Start 06/05/17 at 09:00; Stop 06/06/17 at 09:11; Status DC Gabapentin (Neurontin) 300 mg TID PO Last administered on 06/08/17 20:49; Start 06/04/17 at 21:00 Insulin Aspart (NovoLOG) 10 units TIDAC SQ ; Start 06/05/17 at 07:30; Stop 06/05 at 09:45; Status DC Metoclopramide HCl (Reglan) 10 mg TID IV Last administered on 06/06/17 21:35; Start 06/04/17 at 21:00 Prochlorperazine Edisylate (Compazine) 10 mg PRN TID PRN IV NAUSEA/VOMITING; Start 06/04/17 at 19:15; Status Cancel Insulin Aspart (NovoLOG) 12 units 1X ONCE SQ Last administered on 06/04/17 22 :18; Start 06/04/17 at 22:15; Stop 06/04/17 at 22:16; Status DC Insulin Aspart (NovoLOG) 5 units TIDAC SQ Last administered on 06/08/17 11:30 ; Start 06/05/17 at 11:30 Insulin Detemir (Levemir) 15 units HS SQ Last administered on 06/08/17 20:55; Start 06/05/17 at 21:00; Stop 06/09/17 at 08:19; Status DC Senna/Docusate Sodium (Senna Plus) 1 tab BID PO Last administered on 06/08/17 20:49; Start 06/05/17 at 10:30 Docusate Sodium (Colace) 100 mg BID PO ; Start 06/05/17 at 21:00; Status UNV Magnesium Hydroxide (Milk Of Magnesia) 2,400 mg PRN Q12HR PRN PO CONSTIPATION; Start 06/05/17 at 09:45; Status UNV Pantoprazole Sodium (Protonix) 40 mg DAILYAC PO Last administered on 06/09/17 06:26; Start 06/05/17 at 10:30 Lisinopril (Prinivil) 40 mg DAILY PO Last administered on 06/08/17 09:04; Start 06/07/17 at 09:00 Acetaminophen/ Hydrocodone Bitart (Lortab 5/325) 1 tab PRN Q4HRS PRN PO PAIN; Start 06/06/17 at 09:15; Stop 06/07/17 at 09:25; Status DC Oxycodone/ Acetaminophen (Percocet 10/325) 1 tab PRN Q4HRS PRN PO PAIN Last administered on 06/09/17 06:26; Start 06/07/17 at 09:30 Cefazolin Sodium/ Dextrose 50 ml @ 100 mls/hr 1X PREOP IV ; Start 06/07/17 at 10:15; Stop 06/10/17 at 18:00 Ondansetron HCl (Zofran) 4 mg PRN Q6HRS PRN IV NAUSEA/VOMITING; Start 06/10/17 at 07:00; Stop 06/11/17 at 06:59 Fentanyl Citrate (Fentanyl 2ml Vial) 25 mcg PRN Q5MIN PRN IV MILD PAIN; Start 06/10/17 at 07:00; Stop 06/11/17 at 06:59 Fentanyl Citrate (Fentanyl 2ml Vial) 50 mcg PRN Q5MIN PRN IV MODERATE PAIN; Start 06/10/17 at 07:00; Stop 06/11/17 at 06:59 Morphine Sulfate 1 mg PRN Q10MIN PRN IV SEVERE PAIN; Start 06/10/17 at 07:00; Stop 06/11/17 at 06:59 Ringer's Solution 1,000 ml @ 30 mls/hr Q24H IV ; Start 06/10/17 at 07:00; Stop 06/10/17 at 18:59 Lidocaine HCl 2 ml PRN 1X PRN ID PRIOR TO IV START; Start 06/10/17 at 07:00; Stop 06/11/17 at 06:59 Hydromorphone HCl (Dilaudid) 0.5 mg PRN Q10MIN PRN IV SEV PAIN, Second choice; Start 06/10/17 at 07:00; Stop 06/11/17 at 06:59 Trazodone HCl (Desyrel) 50 mg PRN QHS PRN PO INSOMNIA Last administered on 06/08t 22:14; Start 06/07/17 at 16:00 Insulin Detemir (Levemir) 20 units HS SQ ; Start 06/09/17 at 21:00 Active Scripts Active Lisinopril 20 Mg Tablet 1 Tab PO DAILY Bactrim Ds Tablet (Sulfamethoxazole/Trimethoprim) 1 Each Tablet 1 Tab PO BID Hydrocodone-Apap 10-325 (Hydrocodone Bit/Acetaminophen) 1 Each Tablet 1 Tab PO PRN Q6HRS PRN Levemir Flextouch (Insulin Detemir) 100 Unit/1 Ml Insuln.pen 20 Unit SQ HS 30 Days Lisinopril 20 Mg Tablet 20 Mg PO DAILY Novolog (Insulin Aspart) 100 Unit/1 Ml Cartridge 10 Units SQ TIDAC 30 Days Reported Gabapentin 300 Mg Capsule 300 Mg PO TID Vitals/I & O Vital Sign - Last 24 Hours 06/08/17 06/08/17 06/08/17 06/08/17 09:04 09:25 10:20 10:48 Temp 98.8 98.8 Pulse 91 96 Resp 16 B/P (MAP) 111/63 138/95 (109) Pulse Ox 97 95 97 O2 Delivery Room Air Room Air Room Air 06/08/17 06/08/17 06/08/17 06/08/17 11:58 14:44 16:36 19:30 Temp 97.9 98.1 97.9 98.1 Pulse 96 98 Resp 18 16 B/P (MAP) 125/94 (104) 127/86 (100) Pulse Ox 97 97 97 99 O2 Delivery Room Air Room Air Room Air Room Air 06/08/17 06/08/17 06/08/17 06/09/17 20:10 20:50 23:30 02:30 Temp 100.0 100.0 Pulse 105 Resp 12 B/P (MAP) 107/67 (80) Pulse Ox 99 96 96 O2 Delivery Room Air Room Air Room Air Room Air 06/09/17 06/09/17 06/09/17 06/09/17 03:15 06:26 06:34 07:03 Temp 99.0 99.0 97.7 99.0 99.0 97.7 Pulse 102 96 Resp 16 16 B/P (MAP) 101/52 (68) 138/93 (108) Pulse Ox 96 96 96 O2 Delivery Room Air Room Air Room Air Intake and Output 06/08/17 06/08/17 06/09/17 15:00 23:00 07:00 Intake Total 360 ml 600 ml Balance 360 ml 600 ml LC ABRAHAM MD Jun 09, 2017 08:40
[2017-06-09] MEDS ORDERED: IV NORMAL SALINE 1000ML BAG 1,000 ML IV ONE (08:45)
[2017-06-09] MEDS: METOCLOPRAMIDE HCL 10 MG/2 ML VIAL. IV SCH ×3 (09:00→19:56)
[2017-06-09] MEDS: INSULIN ASPART 300 UNITS/3 ML INSULN.PEN SQ SCH ×6 (09:20→17:30)
[2017-06-09 11:10] VITALS: BP 124/80
[2017-06-09] MEDS: DOCUSATE SODIUM 100 MG CAPSULE. PO SCH ×2 (11:28→19:56)
[2017-06-09] MEDS: SENNOSIDES/DOCUSATE 8.6/50MG TABLET. PO SCH ×2 (11:28→19:56)
[2017-06-09] MEDS: GABAPENTIN 300 MG CAPSULE. PO SCH ×3 (11:28→21:38)
[2017-06-09] MEDS: LISINOPRIL 40 MG TABLET. PO SCH (11:29)
[2017-06-09 15:10] VITALS: BP 90/56
[2017-06-09 19:00] VITALS: BP 94/58
[2017-06-09] MEDS: ZOLPIDEM 5 MG TABLET. PO PRN (21:38)
[2017-06-09] MEDS: INSULIN DETEMIR 300 UNITS/3 ML INSULN.PEN. SQ SCH (21:40)
[2017-06-09 23:00] VITALS: BP 116/74
[2017-06-10] VITALS (13 sets, daily range): BP systolic 98–140; BP diastolic 60–95
[2017-06-10] MEDS: MORPHINE SULFATE 4 MG/ML DISP.SYRIN. IV PRN ×5 (01:51→17:28)
[2017-06-10 04:39] LABS: BASO % 1 % (0-3); EOS % 2 % (0-3); HEMOGLOBIN 13.2 g/dL (12.0-15.5); LYMPH # 2.2 x10^3/uL (1.0-4.8); LYMPH % 43 % (24-48); MEAN CORPUSCULAR HEMOGLOBIN 30 pg (25-35); MEAN CORPUSCULAR HGB CONC 34 g/dL (31-37); MEAN CORPUSCULAR VOLUME 90 fL (79-100); MONO % 9 % (0-9); NEUT % 46 % (31-73); PLATELET COUNT 409 x10^3/uL (140-400); RED BLOOD COUNT 4.35 x10^6/uL (3.50-5.40); RED CELL DISTRIBUTION WIDTH 13.7 % (11.5-14.5); WHITE BLOOD COUNT 5.2 x10^3/uL (4.0-11.0)
[2017-06-10 04:42] LABS: PROTHROMBIN TIME PATIENT 12.7 SEC (11.7-14.0)
[2017-06-10 04:52] LABS: ALBUMIN 3.1 g/dL (3.4-5.0); CALCIUM 9.3 mg/dL (8.5-10.1); CREATININE 0.6 mg/dL (0.6-1.0); GFR 149.9; PHOSPHORUS 4.3 mg/dL (2.6-4.7); POTASSIUM 4.4 mmol/L (3.5-5.1)
[2017-06-10] MEDS ORDERED: ONDANSETRON PF 4 MG/2 ML VIAL. IV PRN ×2 (07:00→14:30)
[2017-06-10] MEDS ORDERED: IV RINGERS,LACTATED 1000ML 1,000 ML IV SCH (07:00)
[2017-06-10] MEDS ORDERED: HYDROmorphone 2 MG/ML VIAL IV PRN (07:00)
[2017-06-10] MEDS ORDERED: LIDOCAINE 1% 1 ML SYRINGE. ID PRN (07:00)
[2017-06-10] MEDS ORDERED: fentaNYL PF VIAL 100 MCG/2 ML VIAL IV PRN (07:00)
[2017-06-10] MEDS ORDERED: MORPHINE SULFATE 2 MG/ML DISP.SYRIN. IV PRN (07:00)
[2017-06-10] MEDS: PANTOPRAZOLE 40 MG TABLET.DR. PO SCH (07:30)
[2017-06-10] MEDS: INSULIN ASPART 300 UNITS/3 ML INSULN.PEN SQ SCH ×6 (08:34→17:31)
[2017-06-10] MEDS: DOCUSATE SODIUM 100 MG CAPSULE. PO SCH ×2 (09:00→20:41)
[2017-06-10] MEDS: LISINOPRIL 40 MG TABLET. PO SCH (09:00)
[2017-06-10] MEDS: SENNOSIDES/DOCUSATE 8.6/50MG TABLET. PO SCH ×2 (09:00→20:41)
[2017-06-10] MEDS: GABAPENTIN 300 MG CAPSULE. PO SCH ×3 (09:00→20:41)
[2017-06-10] MEDS: METOCLOPRAMIDE HCL 10 MG/2 ML VIAL. IV SCH ×3 (09:00→20:41)
--- NOTE | 2017-06-10 09:57 | PDOC ---
PROGRESS NOTES Chief Complaint Chief Complaint abd pain with N/V, with chronic cholecystitis poorly controlled DM type 1 Brittle DM History Asthma GERD chronic cholecystitis gastroparesis HTN accelerated History of Present Illness History of Present Illness poor control of blood sugars HGOme regimen is 5 TID and 20 qhs walking, NPO for armando surg today cont home doses insulin HEavy 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 ANti nausea meds pain meds etc Vitals Vitals Vital Signs Date Time Temp Pulse Resp B/P (MAP) Pulse Ox O2 Delivery O2 Flow Rate FiO2 06/10/17 07:00 98.7 102 18 106/66 (79) 97 Room Air 98.7 Physical Exam General: Alert, Oriented X3, Cooperative, No acute distress Heart: Regular rate, Normal S1, Normal S2, No murmurs Lungs: Clear, Other Abdomen: Soft, Other (RUQ pain) Extremities: No clubbing, No cyanosis Skin: No rashes, No breakdown Labs LABS Laboratory Tests Test 06/09/17 11:15 06/09/17 16:10 06/09/17 20:53 06/10/17 04:12 Glucose (Fingerstick) 102 mg/dL (70-99) 154 mg/dL (70-99) 299 mg/dL (70-99) White Blood Count 5.2 x10^3/uL (4.0-11.0) Red Blood Count 4.35 x10^6/uL (3.50-5.40) Hemoglobin 13.2 g/dL (12.0-15.5) Hematocrit 39.0 % (36.0-47.0) Mean Corpuscular Volume 90 fL (79-100) Mean Corpuscular Hemoglobin 30 pg (25-35) Mean Corpuscular Hemoglobin Concent 34 g/dL (31-37) Red Cell Distribution Width 13.7 % (11.5-14.5) Platelet Count 409 x10^3/uL (140-400) Neutrophils (%) (Auto) 46 % (31-73) Lymphocytes (%) (Auto) 43 % (24-48) Monocytes (%) (Auto) 9 % (0-9) Eosinophils (%) (Auto) 2 % (0-3) Basophils (%) (Auto) 1 % (0-3) Neutrophils # (Auto) 2.4 x10^3uL (1.8-7.7) Lymphocytes # (Auto) 2.2 x10^3/uL (1.0-4.8) Monocytes # (Auto) 0.5 x10^3/uL (0.0-1.1) Eosinophils # (Auto) 0.1 x10^3/uL (0.0-0.7) Basophils # (Auto) 0.0 x10^3/uL (0.0-0.2) Prothrombin Time 12.7 SEC (11.7-14.0) Prothromb Time International Ratio 1.0 (0.8-1.1) Sodium Level 135 mmol/L (136-145) Potassium Level 4.4 mmol/L (3.5-5.1) Chloride Level 99 mmol/L (98-107) Carbon Dioxide Level 28 mmol/L (21-32) Anion Gap 8 (6-14) Blood Urea Nitrogen 16 mg/dL (7-20) Creatinine 0.6 mg/dL (0.6-1.0) Estimated GFR (Cockcroft-Gault) 149.9 Glucose Level 276 mg/dL (70-99) Calcium Level 9.3 mg/dL (8.5-10.1) Phosphorus Level 4.3 mg/dL (2.6-4.7) Albumin 3.1 g/dL (3.4-5.0) Test 06/10/17 07:40 Glucose (Fingerstick) 288 mg/dL (70-99) Review of Systems Review of Systems no n.v.d feels well Assessment and Plan Assessmemt and Plan Problems Medical Problems: (1) Intractable abdominal pain Status: Acute (2) Nausea and vomiting Status: Acute (3) Uncontrolled diabetes mellitus Status: Acute Problems: Comment Review of Relevant I have reviewed the following items cristela (where applicable) has been applied. Labs Laboratory Tests Test 06/08/17 10:23 06/08/17 16:09 06/08/17 19:28 06/09/17 07:08 Glucose (Fingerstick) 266 mg/dL (70-99) 102 mg/dL (70-99) 412 mg/dL (70-99) 317 mg/dL (70-99) Test 06/09/17 11:15 06/09/17 16:10 06/09/17 20:53 06/10/17 04:12 Glucose (Fingerstick) 102 mg/dL (70-99) 154 mg/dL (70-99) 299 mg/dL (70-99) White Blood Count 5.2 x10^3/uL (4.0-11.0) Red Blood Count 4.35 x10^6/uL (3.50-5.40) Hemoglobin 13.2 g/dL (12.0-15.5) Hematocrit 39.0 % (36.0-47.0) Mean Corpuscular Volume 90 fL (79-100) Mean Corpuscular Hemoglobin 30 pg (25-35) Mean Corpuscular Hemoglobin Concent 34 g/dL (31-37) Red Cell Distribution Width 13.7 % (11.5-14.5) Platelet Count 409 x10^3/uL (140-400) Neutrophils (%) (Auto) 46 % (31-73) Lymphocytes (%) (Auto) 43 % (24-48) Monocytes (%) (Auto) 9 % (0-9) Eosinophils (%) (Auto) 2 % (0-3) Basophils (%) (Auto) 1 % (0-3) Neutrophils # (Auto) 2.4 x10^3uL (1.8-7.7) Lymphocytes # (Auto) 2.2 x10^3/uL (1.0-4.8) Monocytes # (Auto) 0.5 x10^3/uL (0.0-1.1) Eosinophils # (Auto) 0.1 x10^3/uL (0.0-0.7) Basophils # (Auto) 0.0 x10^3/uL (0.0-0.2) Prothrombin Time 12.7 SEC (11.7-14.0) Prothromb Time International Ratio 1.0 (0.8-1.1) Sodium Level 135 mmol/L (136-145) Potassium Level 4.4 mmol/L (3.5-5.1) Chloride Level 99 mmol/L (98-107) Carbon Dioxide Level 28 mmol/L (21-32) Anion Gap 8 (6-14) Blood Urea Nitrogen 16 mg/dL (7-20) Creatinine 0.6 mg/dL (0.6-1.0) Estimated GFR (Cockcroft-Gault) 149.9 Glucose Level 276 mg/dL (70-99) Calcium Level 9.3 mg/dL (8.5-10.1) Phosphorus Level 4.3 mg/dL (2.6-4.7) Albumin 3.1 g/dL (3.4-5.0) Test 06/10/17 07:40 Glucose (Fingerstick) 288 mg/dL (70-99) Laboratory Tests Test 06/09/17 11:15 06/09/17 16:10 06/09/17 20:53 06/10/17 04:12 Glucose (Fingerstick) 102 mg/dL (70-99) 154 mg/dL (70-99) 299 mg/dL (70-99) White Blood Count 5.2 x10^3/uL (4.0-11.0) Red Blood Count 4.35 x10^6/uL (3.50-5.40) Hemoglobin 13.2 g/dL (12.0-15.5) Hematocrit 39.0 % (36.0-47.0) Mean Corpuscular Volume 90 fL (79-100) Mean Corpuscular Hemoglobin 30 pg (25-35) Mean Corpuscular Hemoglobin Concent 34 g/dL (31-37) Red Cell Distribution Width 13.7 % (11.5-14.5) Platelet Count 409 x10^3/uL (140-400) Neutrophils (%) (Auto) 46 % (31-73) Lymphocytes (%) (Auto) 43 % (24-48) Monocytes (%) (Auto) 9 % (0-9) Eosinophils (%) (Auto) 2 % (0-3) Basophils (%) (Auto) 1 % (0-3) Neutrophils # (Auto) 2.4 x10^3uL (1.8-7.7) Lymphocytes # (Auto) 2.2 x10^3/uL (1.0-4.8) Monocytes # (Auto) 0.5 x10^3/uL (0.0-1.1) Eosinophils # (Auto) 0.1 x10^3/uL (0.0-0.7) Basophils # (Auto) 0.0 x10^3/uL (0.0-0.2) Prothrombin Time 12.7 SEC (11.7-14.0) Prothromb Time International Ratio 1.0 (0.8-1.1) Sodium Level 135 mmol/L (136-145) Potassium Level 4.4 mmol/L (3.5-5.1) Chloride Level 99 mmol/L (98-107) Carbon Dioxide Level 28 mmol/L (21-32) Anion Gap 8 (6-14) Blood Urea Nitrogen 16 mg/dL (7-20) Creatinine 0.6 mg/dL (0.6-1.0) Estimated GFR (Cockcroft-Gault) 149.9 Glucose Level 276 mg/dL (70-99) Calcium Level 9.3 mg/dL (8.5-10.1) Phosphorus Level 4.3 mg/dL (2.6-4.7) Albumin 3.1 g/dL (3.4-5.0) Test 06/10/17 07:40 Glucose (Fingerstick) 288 mg/dL (70-99) Medications Current Medications Fentanyl Citrate (Fentanyl 2ml Vial) 50 mcg PRN Q15MIN PRN IV PAIN GREATER THAN 3/10 Last administered on 06/04/17 18:53; Start 06/04/17 at 17:30; Stop at 17:29; Status DC Sodium Chloride 1,000 ml @ 1,000 mls/hr Q1H IV Last administered on 06/04/17 18:48; Start 06/04/17 at 17:19; Stop 06/04/17 at 18:18; Status DC Metoclopramide HCl (Reglan) 10 mg 1X ONCE IV Last administered on 06/04/17 18 :50; Start 06/04/17 at 17:30; Stop 06/04/17 at 17:31; Status DC Sodium Chloride 1,000 ml @ 150 mls/hr Q6H40M IV Last administered on 21:20; Start 06/04/17 at 19:09; Stop 06/05/17 at 02:43; Status DC Ondansetron HCl (Zofran) 4 mg PRN Q6HRS PRN IV NAUSEA/VOMITING (1st Choice) Last administered on 06/06/17 14:27; Start 06/04/17 at 19:15 Prochlorperazine Edisylate (Compazine) 10 mg PRN Q6HRS PRN IV NAUSEA/VOMITING ( 2nd Choice); Start 06/04/17 at 19:15 Prochlorperazine (Compazine) 25 mg PRN Q12HR PRN NC NAUSEA/VOMITING; Start at 19:15 Al Hydroxide/Mg Hydroxide (Mylanta Plus Xs) 30 ml PRN Q3HRS PRN PO HEARTBURN / GAS; Start 06/04/17 at 19:15 Calcium Carbonate/ Glycine (Tums) 500 mg PRN Q3HRS PRN PO UPSET STOMACH; Start 06/04/17 at 19:15 Zolpidem Tartrate (Ambien) 5 mg PRN QHS PRN PO INSOMNIA, MAY REPEAT IN 1HR Last administered on 06/09/17 21:38; Start 06/04/17 at 19:15 Oxycodone HCl (Roxicodone) 5 mg PRN Q3HRS PRN PO BREAKTHROUGH PAIN Last administered on 06/07/17 23:50; Start 06/04/17 at 19:15 Morphine Sulfate 2 mg PRN Q2HR PRN IV PAIN Last administered on 06/10/17 05:09 ; Start 06/04/17 at 19:15 Acetaminophen (Tylenol) 650 mg PRN Q6HRS PRN PO Headaches, Temp > 101.5F; Start 06/04/17 at 19:15 Ibuprofen (Motrin) 400 mg PRN Q6HRS PRN PO MILD PAIN Last administered on 21:19; Start 06/04/17 at 19:15; Stop 06/05/17 at 09:45; Status DC Docusate Sodium (Colace) 100 mg BID PO Last administered on 06/09/17 11:28; Start 06/04/17 at 21:00 Magnesium Hydroxide (Milk Of Magnesia) 2,400 mg PRN Q12HR PRN PO CONSTIPATION ( 1ST CHOICE); Start 06/04/17 at 19:15 Lactulose 20 gm PRN Q12HR PRN PO CONSTIPATION (2ND CHOICE); Start 06/04/17 at 19:15 Bisacodyl (Dulcolax Supp) 10 mg PRN DAILY PRN NC CONSTIPATION; Start 06/04/17 at 19:15 Insulin Aspart (NovoLOG) 0-9 UNITS TIDWMEALS SQ Last administered on 06/10/17 08:35; Start 06/05/17 at 08:00 Dextrose (Dextrose 50%-Water Syringe) 12.5 gm PRN Q15MIN PRN IV SEE COMMENTS; Start 06/04/17 at 19:15 Acetaminophen/ Hydrocodone Bitart (Lortab 10/325) 1 tab PRN Q6HRS PRN PO PAIN Last administered on 06/07/17 01:17; Start 06/04/17 at 19:15; Stop 06/07/17 at 09:25; Status DC Insulin Detemir (Levemir) 20 units HS SQ Last administered on 06/04/17 21:35; Start 06/04/17 at 21:00; Stop 06/05/17 at 09:45; Status DC Lisinopril (Prinivil) 20 mg DAILY PO Last administered on 06/06/17 08:48; Start 06/05/17 at 09:00; Stop 06/06/17 at 09:11; Status DC Gabapentin (Neurontin) 300 mg TID PO Last administered on 06/09/17 21:38; Start 06/04/17 at 21:00 Insulin Aspart (NovoLOG) 10 units TIDAC SQ ; Start 06/05/17 at 07:30; Stop 06/05 at 09:45; Status DC Metoclopramide HCl (Reglan) 10 mg TID IV Last administered on 06/06/17 21:35; Start 06/04/17 at 21:00 Prochlorperazine Edisylate (Compazine) 10 mg PRN TID PRN IV NAUSEA/VOMITING; Start 06/04/17 at 19:15; Status Cancel Insulin Aspart (NovoLOG) 12 units 1X ONCE SQ Last administered on 06/04/17 22 :18; Start 06/04/17 at 22:15; Stop 06/04/17 at 22:16; Status DC Insulin Aspart (NovoLOG) 5 units TIDAC SQ Last administered on 06/10/17 08:34 ; Start 06/05/17 at 11:30 Insulin Detemir (Levemir) 15 units HS SQ Last administered on 06/08/17 20:55; Start 06/05/17 at 21:00; Stop 06/09/17 at 08:19; Status DC Senna/Docusate Sodium (Senna Plus) 1 tab BID PO Last administered on 06/09/17 11:28; Start 06/05/17 at 10:30 Docusate Sodium (Colace) 100 mg BID PO ; Start 06/05/17 at 21:00; Status UNV Magnesium Hydroxide (Milk Of Magnesia) 2,400 mg PRN Q12HR PRN PO CONSTIPATION; Start 06/05/17 at 09:45; Status UNV Pantoprazole Sodium (Protonix) 40 mg DAILYAC PO Last administered on 06/09/17 06:26; Start 06/05/17 at 10:30 Lisinopril (Prinivil) 40 mg DAILY PO Last administered on 06/09/17 11:29; Start 06/07/17 at 09:00 Acetaminophen/ Hydrocodone Bitart (Lortab 5/325) 1 tab PRN Q4HRS PRN PO PAIN; Start 06/06/17 at 09:15; Stop 06/07/17 at 09:25; Status DC Oxycodone/ Acetaminophen (Percocet 10/325) 1 tab PRN Q4HRS PRN PO PAIN Last administered on 06/09/17 21:38; Start 06/07/17 at 09:30 Cefazolin Sodium/ Dextrose 50 ml @ 100 mls/hr 1X PREOP IV ; Start 06/07/17 at 10:15; Stop 06/10/17 at 18:00 Ondansetron HCl (Zofran) 4 mg PRN Q6HRS PRN IV NAUSEA/VOMITING; Start 06/10/17 at 07:00; Stop 06/11/17 at 06:59 Fentanyl Citrate (Fentanyl 2ml Vial) 25 mcg PRN Q5MIN PRN IV MILD PAIN; Start 06/10/17 at 07:00; Stop 06/11/17 at 06:59 Fentanyl Citrate (Fentanyl 2ml Vial) 50 mcg PRN Q5MIN PRN IV MODERATE PAIN; Start 06/10/17 at 07:00; Stop 06/11/17 at 06:59 Morphine Sulfate 1 mg PRN Q10MIN PRN IV SEVERE PAIN; Start 06/10/17 at 07:00; Stop 06/11/17 at 06:59 Ringer's Solution 1,000 ml @ 30 mls/hr Q24H IV ; Start 06/10/17 at 07:00; Stop 06/10/17 at 18:59 Lidocaine HCl 2 ml PRN 1X PRN ID PRIOR TO IV START; Start 06/10/17 at 07:00; Stop 06/11/17 at 06:59 Hydromorphone HCl (Dilaudid) 0.5 mg PRN Q10MIN PRN IV SEV PAIN, Second choice; Start 06/10/17 at 07:00; Stop 06/11/17 at 06:59 Trazodone HCl (Desyrel) 50 mg PRN QHS PRN PO INSOMNIA Last administered on 06/08 22:14; Start 06/07/17 at 16:00 Insulin Detemir (Levemir) 20 units HS SQ Last administered on 06/09/17 21:40; Start 06/09/17 at 21:00 Sodium Chloride 1,000 ml @ 100 mls/hr 1X ONCE IV ; Start 06/09/17 at 08:45; Stop 06/09/17 at 18:44; Status DC Active Scripts Active Lisinopril 20 Mg Tablet 1 Tab PO DAILY Bactrim Ds Tablet (Sulfamethoxazole/Trimethoprim) 1 Each Tablet 1 Tab PO BID Hydrocodone-Apap 10-325 (Hydrocodone Bit/Acetaminophen) 1 Each Tablet 1 Tab PO PRN Q6HRS PRN Levemir Flextouch (Insulin Detemir) 100 Unit/1 Ml Insuln.pen 20 Unit SQ HS 30 Days Lisinopril 20 Mg Tablet 20 Mg PO DAILY Novolog (Insulin Aspart) 100 Unit/1 Ml Cartridge 10 Units SQ TIDAC 30 Days Reported Gabapentin 300 Mg Capsule 300 Mg PO TID Vitals/I & O Vital Sign - Last 24 Hours 06/09/17 06/09/17 06/09/17 06/09/17 11:10 11:27 11:29 15:10 Temp 98.1 97.7 98.1 97.7 Pulse 109 109 76 Resp 20 16 20 B/P (MAP) 124/80 (95) 124/80 90/56 (67) Pulse Ox 98 96 98 O2 Delivery Room Air Room Air Room Air 06/09/17 06/09/17 06/09/17 06/09/17 17:25 19:00 20:00 21:38 Temp 98.8 98.8 Pulse 120 Resp 12 20 16 B/P (MAP) 94/58 (70) Pulse Ox 96 98 97 O2 Delivery Room Air Room Air Room Air 06/09/17 06/09/17 06/10/17 06/10/17 22:39 23:00 01:51 03:00 Temp 97.7 97.7 97.7 97.7 Pulse 121 110 Resp 18 20 16 20 B/P (MAP) 116/74 (88) 98/60 (73) Pulse Ox 99 98 99 96 O2 Delivery Room Air Room Air Room Air Room Air 06/10/17 06/10/17 06/10/17 05:09 05:49 07:00 Temp 98.7 98.7 Pulse 102 Resp 18 16 18 B/P (MAP) 106/66 (79) Pulse Ox 98 97 97 O2 Delivery Room Air Room Air Room Air Intake and Output 06/09/17 06/09/17 06/10/17 15:00 23:00 07:00 Intake Total 480 ml 900 ml 400 ml Output Total 450 ml Balance 480 ml 450 ml 400 ml JANAY NEGRETE MD Jun 10, 2017 09:57
[2017-06-10] MEDS ORDERED: BUPIVAC MPF-EPI 0.5%-1:200000 30 ML VIAL. ONE (11:01)
[2017-06-10] MEDS ORDERED: SURGICEL HEMOSTAT 2X3 EACH. ONE (11:01)
[2017-06-10] MEDS ORDERED: IOHEXOL 300 MG/ML 50 ML VIAL. ONE (11:01)
--- NOTE | 2017-06-10 11:12 | PDOC ---
Subjective: Subjective: Feels the same, waiting for surgery. Objective: Vital Signs: Vital Signs Date Time Temp Pulse Resp B/P (MAP) Pulse Ox O2 Delivery O2 Flow Rate FiO2 06/10/17 11:01 97.8 122 18 110/77 (88) 99 Room Air 97.8 Labs: Laboratory Tests Test 06/09/17 11:15 06/09/17 16:10 06/09/17 20:53 06/10/17 04:12 Glucose (Fingerstick) 102 mg/dL 154 mg/dL 299 mg/dL White Blood Count 5.2 x10^3/uL Red Blood Count 4.35 x10^6/uL Hemoglobin 13.2 g/dL Hematocrit 39.0 % Mean Corpuscular Volume 90 fL Mean Corpuscular Hemoglobin 30 pg Mean Corpuscular Hemoglobin Concent 34 g/dL Red Cell Distribution Width 13.7 % Platelet Count 409 x10^3/uL Neutrophils (%) (Auto) 46 % Lymphocytes (%) (Auto) 43 % Monocytes (%) (Auto) 9 % Eosinophils (%) (Auto) 2 % Basophils (%) (Auto) 1 % Neutrophils # (Auto) 2.4 x10^3uL Lymphocytes # (Auto) 2.2 x10^3/uL Monocytes # (Auto) 0.5 x10^3/uL Eosinophils # (Auto) 0.1 x10^3/uL Basophils # (Auto) 0.0 x10^3/uL Prothrombin Time 12.7 SEC Prothromb Time International Ratio 1.0 Sodium Level 135 mmol/L Potassium Level 4.4 mmol/L Chloride Level 99 mmol/L Carbon Dioxide Level 28 mmol/L Anion Gap 8 Blood Urea Nitrogen 16 mg/dL Creatinine 0.6 mg/dL Estimated GFR (Cockcroft-Gault) 149.9 Glucose Level 276 mg/dL Calcium Level 9.3 mg/dL Phosphorus Level 4.3 mg/dL Albumin 3.1 g/dL Test 06/10/17 07:40 Glucose (Fingerstick) 288 mg/dL PE: GEN: NAD LUNGS: CTAB HEART: RRR ABD: upper abd tenderness NEURO/PSYCH: A & O 3 A/P: Recurrent upper abd pain, n/v Abnormal GB imaging - surgery this afternoon GERD - on PPI IDDM, uncontrolled - normal GES -- Await operative findings. MACKENZIE HOGAN Jun 10, 2017 11:12
[2017-06-10] MEDS ORDERED: HEPARIN 1,000 UNIT in IV NORMAL SALINE 1,000 ML for SURG PERIOP IRR ONE (12:00)
[2017-06-10] MEDS ORDERED: LIDOCAINE 2% PF Vial for OR 5 ML VIAL. ONE (12:41)
[2017-06-10] MEDS ORDERED: MIDAZOLAM HCL/PF 2 MG/2 ML VIAL. ONE (12:41)
[2017-06-10] MEDS ORDERED: PROPOFOL 20 ML IV ONE (12:41)
[2017-06-10] MEDS ORDERED: fentaNYL PF VIAL 100 MCG/2 ML VIAL ONE ×2 (12:41→14:07)
[2017-06-10] MEDS ORDERED: DEXAMETHASONE SOD PHOS 20 MG/5 ML VIAL. ONE (12:41)
[2017-06-10] MEDS ORDERED: ROCURONIUM 100 MG/10 ML VIAL. ONE (12:41)
--- NOTE | 2017-06-10 13:15 | PDOC ---
SURGICAL PROGRESS NOTE Subjective Pre-Op Note 22 yo F with abd pain abnormal gallbladder by imaging, no other obvious abnormality identified TO OR for lap armando with grams R/B/A d/w pt Vital Signs Vital Signs Date Time Temp Pulse Resp B/P (MAP) Pulse Ox O2 Delivery O2 Flow Rate FiO2 06/10/17 12:35 16 Room Air 06/10/17 12:30 97.8 98 115/85 98 97.8 I&O Intake and Output 06/10/17 07:00 Intake Total 1780 ml Output Total 450 ml Balance 1330 ml Intake Oral 1780 ml Output Urine Total 450 ml Labs Laboratory Tests Test 06/08/17 16:09 06/08/17 19:28 06/09/17 07:08 06/09/17 11:15 Glucose (Fingerstick) 102 mg/dL (70-99) 412 mg/dL (70-99) 317 mg/dL (70-99) 102 mg/dL (70-99) Test 06/09/17 16:10 06/09/17 20:53 06/10/17 04:12 06/10/17 07:40 Glucose (Fingerstick) 154 mg/dL (70-99) 299 mg/dL (70-99) 288 mg/dL (70-99) White Blood Count 5.2 x10^3/uL (4.0-11.0) Red Blood Count 4.35 x10^6/uL (3.50-5.40) Hemoglobin 13.2 g/dL (12.0-15.5) Hematocrit 39.0 % (36.0-47.0) Mean Corpuscular Volume 90 fL (79-100) Mean Corpuscular Hemoglobin 30 pg (25-35) Mean Corpuscular Hemoglobin Concent 34 g/dL (31-37) Red Cell Distribution Width 13.7 % (11.5-14.5) Platelet Count 409 x10^3/uL (140-400) Neutrophils (%) (Auto) 46 % (31-73) Lymphocytes (%) (Auto) 43 % (24-48) Monocytes (%) (Auto) 9 % (0-9) Eosinophils (%) (Auto) 2 % (0-3) Basophils (%) (Auto) 1 % (0-3) Neutrophils # (Auto) 2.4 x10^3uL (1.8-7.7) Lymphocytes # (Auto) 2.2 x10^3/uL (1.0-4.8) Monocytes # (Auto) 0.5 x10^3/uL (0.0-1.1) Eosinophils # (Auto) 0.1 x10^3/uL (0.0-0.7) Basophils # (Auto) 0.0 x10^3/uL (0.0-0.2) Prothrombin Time 12.7 SEC (11.7-14.0) Prothromb Time International Ratio 1.0 (0.8-1.1) Sodium Level 135 mmol/L (136-145) Potassium Level 4.4 mmol/L (3.5-5.1) Chloride Level 99 mmol/L (98-107) Carbon Dioxide Level 28 mmol/L (21-32) Anion Gap 8 (6-14) Blood Urea Nitrogen 16 mg/dL (7-20) Creatinine 0.6 mg/dL (0.6-1.0) Estimated GFR (Cockcroft-Gault) 149.9 Glucose Level 276 mg/dL (70-99) Calcium Level 9.3 mg/dL (8.5-10.1) Phosphorus Level 4.3 mg/dL (2.6-4.7) Albumin 3.1 g/dL (3.4-5.0) Test 06/10/17 11:47 Glucose (Fingerstick) 144 mg/dL (70-99) Laboratory Tests Test 06/09/17 16:10 06/09/17 20:53 06/10/17 04:12 06/10/17 07:40 Glucose (Fingerstick) 154 mg/dL (70-99) 299 mg/dL (70-99) 288 mg/dL (70-99) White Blood Count 5.2 x10^3/uL (4.0-11.0) Red Blood Count 4.35 x10^6/uL (3.50-5.40) Hemoglobin 13.2 g/dL (12.0-15.5) Hematocrit 39.0 % (36.0-47.0) Mean Corpuscular Volume 90 fL (79-100) Mean Corpuscular Hemoglobin 30 pg (25-35) Mean Corpuscular Hemoglobin Concent 34 g/dL (31-37) Red Cell Distribution Width 13.7 % (11.5-14.5) Platelet Count 409 x10^3/uL (140-400) Neutrophils (%) (Auto) 46 % (31-73) Lymphocytes (%) (Auto) 43 % (24-48) Monocytes (%) (Auto) 9 % (0-9) Eosinophils (%) (Auto) 2 % (0-3) Basophils (%) (Auto) 1 % (0-3) Neutrophils # (Auto) 2.4 x10^3uL (1.8-7.7) Lymphocytes # (Auto) 2.2 x10^3/uL (1.0-4.8) Monocytes # (Auto) 0.5 x10^3/uL (0.0-1.1) Eosinophils # (Auto) 0.1 x10^3/uL (0.0-0.7) Basophils # (Auto) 0.0 x10^3/uL (0.0-0.2) Prothrombin Time 12.7 SEC (11.7-14.0) Prothromb Time International Ratio 1.0 (0.8-1.1) Sodium Level 135 mmol/L (136-145) Potassium Level 4.4 mmol/L (3.5-5.1) Chloride Level 99 mmol/L (98-107) Carbon Dioxide Level 28 mmol/L (21-32) Anion Gap 8 (6-14) Blood Urea Nitrogen 16 mg/dL (7-20) Creatinine 0.6 mg/dL (0.6-1.0) Estimated GFR (Cockcroft-Gault) 149.9 Glucose Level 276 mg/dL (70-99) Calcium Level 9.3 mg/dL (8.5-10.1) Phosphorus Level 4.3 mg/dL (2.6-4.7) Albumin 3.1 g/dL (3.4-5.0) Test 06/10/17 11:47 Glucose (Fingerstick) 144 mg/dL (70-99) Problem List Problems Medical Problems: (1) Intractable abdominal pain Status: Acute (2) Nausea and vomiting Status: Acute (3) Uncontrolled diabetes mellitus Status: Acute Problems: LIZA SPARKS MD Jun 10, 2017 13:15
[2017-06-10] MEDS ORDERED: GLYCOPYRROLATE 1 MG/5 ML VIAL. ONE (13:42)
[2017-06-10] MEDS ORDERED: NEOSTIGMINE METHYLSULFATE 5 MG/5 ML SYRINGE. ONE (13:43)
[2017-06-10] MEDS ORDERED: ONDANSETRON PF 4 MG/2 ML VIAL. ONE (13:43)
--- NOTE | 2017-06-10 13:44 | RAD ---
Intraoperative cholangiogram 06/10/2017 Clinical history: Laparoscopic cholecystectomy. An intraoperative cholangiogram was performed. The fluoroscopic time is listed as 5 seconds. A single fluoroscopically captured digital radiograph of the right upper quadrant of the abdomen was obtained. This image demonstrates contrast opacifying the cystic duct remnant, common hepatic duct, the left and right hepatic ducts and the common bile duct. These ducts are normal in caliber. No filling defect is seen. Free spillage of contrast into the duodenum is noted. Impression: Negative study.
[2017-06-10] MEDS ORDERED: SEVOFLURANE 61 TO 120 MINUTES. IH ONE (13:45)
[2017-06-10] MEDS ORDERED: PHENYLEPHRINE in 0.9% NACL PF 1 MG/10 ML DISP.SYRIN. IV ONE (13:45)
[2017-06-10] MEDS: fentaNYL PF VIAL 100 MCG/2 ML VIAL IV PRN ×2 (14:09→14:47)
[2017-06-10] MEDS ORDERED: HYDROcodone/APAP 5/325MG 1 TAB TABLET PO PRN (14:30)
[2017-06-10] MEDS ORDERED: DEXTROSE 50% 25 GM / 50ML DISP.SYRIN. IV PRN (14:30)
[2017-06-10] MEDS ORDERED: 0.9 % SODIUM CHLORIDE 10 ML DISP.SYRIN. IV PRN (14:30)
--- NOTE | 2017-06-10 14:36 | PDOC4 ---
OPERATIVE NOTE Date: Date: Jun 10, 2017 Pre-Op Diagnosis: abdominal pain Post-Op Diagnosis: cholecystitis Procedure Performed: Laparoscopic cholecystectomy with cholangiogram Surgeon: Mikal Sparks Anesthesia Type: GETA plus local Blood Loss: 10 cc Specimans Obtained: gallbladder Findings: Fredy tanvir mariely adhesions, chronic adhesions to the gallbladder, normal cholangiogram Complications: none Operative Note: Patient was taken to the OR, induced under GETA, and prepped in the usual fashion. 5 mm ports placed in supraumbilical and right upper quadrant area, under laparoscopic guidance. There some Fredy tanvir mariely adhesions that were taken down using endoshears. Gallbladder had chronic adhesions consistent with chronic cholecystitis. No other abnormality noted. Critical view was obtained and cholangiogram was obtained. Cholangiogram unremarkable. Cystic duct stump ligated with clips and hemolok. Cystic artery divided between clips. Gallbladder taken off fossa, placed in endocatch bag and delivered to pathology. Copious irrigation without evidence of bleeding or bile leak. Ports removed without evidence of bleeding. Fascia repaired with 0 vicryl and skin repaired with 4 0 monocryl. Dressing applied. All counts were correct. No immediate complications. Sent to PACU in stable condition. MIKAL SPARKS MD Jun 10, 2017 14:36
[2017-06-10] MEDS: IV RINGERS,LACTATED 1000ML 1,000 ML IV SCH (17:25)
[2017-06-10] MEDS: oxyCODONE/APAP 10/325 1 TAB TABLET PO PRN ×2 (19:00→22:50)
[2017-06-10] MEDS: traZODone 50 MG TABLET. PO PRN (20:41)
[2017-06-10] MEDS: INSULIN DETEMIR 300 UNITS/3 ML INSULN.PEN. SQ SCH (20:45)
[2017-06-10] MEDS ORDERED: DOCUSATE SODIUM 100 MG CAPSULE. PO SCH (21:00)
[2017-06-10] MEDS: ONDANSETRON PF 4 MG/2 ML VIAL. IV PRN (22:50)
[2017-06-11] MEDS: IV RINGERS,LACTATED 1000ML 1,000 ML IV SCH ×3 (01:00→21:15)
[2017-06-11 03:03] VITALS: BP 117/69
[2017-06-11 07:00] VITALS: BP 123/59
[2017-06-11] MEDS: INSULIN ASPART 300 UNITS/3 ML INSULN.PEN SQ SCH ×6 (07:30→18:14)
--- NOTE | 2017-06-11 10:03 | PDOC ---
SURGICAL PROGRESS NOTE Subjective Pt with c/o incisional pain, but feels better then preop overall, had loose stools last night Vital Signs Vital Signs Date Time Temp Pulse Resp B/P (MAP) Pulse Ox O2 Delivery O2 Flow Rate FiO2 06/11/17 07:00 97.9 104 16 123/59 (80) 97 Room Air 97.9 06/10/17 14:35 10 General: Alert, Oriented X3, Cooperative, moderate distress, Other (laying on left side) Abdomen: Other (incisional TTP) Labs Laboratory Tests Test 06/09/17 11:15 06/09/17 16:10 06/09/17 20:53 06/10/17 04:12 Glucose (Fingerstick) 102 mg/dL (70-99) 154 mg/dL (70-99) 299 mg/dL (70-99) White Blood Count 5.2 x10^3/uL (4.0-11.0) Red Blood Count 4.35 x10^6/uL (3.50-5.40) Hemoglobin 13.2 g/dL (12.0-15.5) Hematocrit 39.0 % (36.0-47.0) Mean Corpuscular Volume 90 fL (79-100) Mean Corpuscular Hemoglobin 30 pg (25-35) Mean Corpuscular Hemoglobin Concent 34 g/dL (31-37) Red Cell Distribution Width 13.7 % (11.5-14.5) Platelet Count 409 x10^3/uL (140-400) Neutrophils (%) (Auto) 46 % (31-73) Lymphocytes (%) (Auto) 43 % (24-48) Monocytes (%) (Auto) 9 % (0-9) Eosinophils (%) (Auto) 2 % (0-3) Basophils (%) (Auto) 1 % (0-3) Neutrophils # (Auto) 2.4 x10^3uL (1.8-7.7) Lymphocytes # (Auto) 2.2 x10^3/uL (1.0-4.8) Monocytes # (Auto) 0.5 x10^3/uL (0.0-1.1) Eosinophils # (Auto) 0.1 x10^3/uL (0.0-0.7) Basophils # (Auto) 0.0 x10^3/uL (0.0-0.2) Prothrombin Time 12.7 SEC (11.7-14.0) Prothromb Time International Ratio 1.0 (0.8-1.1) Sodium Level 135 mmol/L (136-145) Potassium Level 4.4 mmol/L (3.5-5.1) Chloride Level 99 mmol/L (98-107) Carbon Dioxide Level 28 mmol/L (21-32) Anion Gap 8 (6-14) Blood Urea Nitrogen 16 mg/dL (7-20) Creatinine 0.6 mg/dL (0.6-1.0) Estimated GFR (Cockcroft-Gault) 149.9 Glucose Level 276 mg/dL (70-99) Calcium Level 9.3 mg/dL (8.5-10.1) Phosphorus Level 4.3 mg/dL (2.6-4.7) Albumin 3.1 g/dL (3.4-5.0) Test 06/10/17 07:40 06/10/17 11:47 06/10/17 14:35 06/10/17 16:50 Glucose (Fingerstick) 288 mg/dL (70-99) 144 mg/dL (70-99) 199 mg/dL (70-99) 184 mg/dL (70-99) Test 06/10/17 20:11 06/11/17 07:45 Glucose (Fingerstick) 207 mg/dL (70-99) 227 mg/dL (70-99) Laboratory Tests Test 06/10/17 11:47 06/10/17 14:35 06/10/17 16:50 06/10/17 20:11 Glucose (Fingerstick) 144 mg/dL (70-99) 199 mg/dL (70-99) 184 mg/dL (70-99) 207 mg/dL (70-99) Test 06/11/17 07:45 Glucose (Fingerstick) 227 mg/dL (70-99) Problem List Problems Medical Problems: (1) Intractable abdominal pain Status: Acute (2) Nausea and vomiting Status: Acute (3) Uncontrolled diabetes mellitus Status: Acute Assessment/Plan s/p lap armando cont pain control and supportive care Problems: LIZA SPARKS MD Jun 11, 2017 10:03
[2017-06-11] MEDS: oxyCODONE/APAP 10/325 1 TAB TABLET PO PRN ×2 (10:19→21:17)
[2017-06-11] MEDS: DOCUSATE SODIUM 100 MG CAPSULE. PO SCH ×2 (10:20→21:00)
[2017-06-11] MEDS: GABAPENTIN 300 MG CAPSULE. PO SCH ×3 (10:20→21:16)
[2017-06-11] MEDS: PANTOPRAZOLE 40 MG TABLET.DR. PO SCH (10:20)
[2017-06-11] MEDS: LISINOPRIL 40 MG TABLET. PO SCH (10:22)
[2017-06-11] MEDS: SENNOSIDES/DOCUSATE 8.6/50MG TABLET. PO SCH ×2 (10:23→21:00)
[2017-06-11] MEDS: METOCLOPRAMIDE HCL 10 MG/2 ML VIAL. IV SCH ×3 (10:31→21:00)
[2017-06-11 10:53] VITALS: BP 118/73
--- NOTE | 2017-06-11 10:59 | PDOC ---
Subjective: Subjective: Feels like "crap" but wants to advance diet. Has RUQ pain which is different than previous pain. +flatus Objective: Vital Signs: Vital Signs Date Time Temp Pulse Resp B/P (MAP) Pulse Ox O2 Delivery O2 Flow Rate FiO2 06/11/17 10:53 97.9 105 16 118/73 (88) 99 Room Air 97.9 06/10/17 14:35 10 Labs: Laboratory Tests Test 06/10/17 11:47 06/10/17 14:35 06/10/17 16:50 06/10/17 20:11 Glucose (Fingerstick) 144 mg/dL 199 mg/dL 184 mg/dL 207 mg/dL Test 06/11/17 07:45 Glucose (Fingerstick) 227 mg/dL Imaging: IOC 06/10/17 Impression: Negative study. 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 MACKENZIE HOGAN Jun 11, 2017 10:59
[2017-06-11] MEDS: fentaNYL PF VIAL 100 MCG/2 ML VIAL IV PRN ×2 (13:19→19:26)
[2017-06-11 15:00] VITALS: BP 86/39
[2017-06-11 19:00] VITALS: BP 110/72
[2017-06-11] MEDS: ZOLPIDEM 5 MG TABLET. PO PRN (21:16)
[2017-06-11] MEDS: INSULIN DETEMIR 300 UNITS/3 ML INSULN.PEN. SQ SCH (21:28)
[2017-06-11 23:00] VITALS: BP 101/55
[2017-06-12] MEDS: fentaNYL PF VIAL 100 MCG/2 ML VIAL IV PRN (00:07)
[2017-06-12 03:00] VITALS: BP 118/76
[2017-06-12 07:00] VITALS: BP 116/74
[2017-06-12] MEDS: IV RINGERS,LACTATED 1000ML 1,000 ML IV SCH (07:00)
[2017-06-12] MEDS: oxyCODONE/APAP 10/325 1 TAB TABLET PO PRN (08:48)
[2017-06-12] MEDS: PANTOPRAZOLE 40 MG TABLET.DR. PO SCH (08:48)
[2017-06-12] MEDS: GABAPENTIN 300 MG CAPSULE. PO SCH ×2 (08:48→12:21)
[2017-06-12] MEDS: DOCUSATE SODIUM 100 MG CAPSULE. PO SCH (08:48)
[2017-06-12] MEDS: METOCLOPRAMIDE HCL 10 MG/2 ML VIAL. IV SCH ×3 (08:48→12:28)
[2017-06-12] MEDS: SENNOSIDES/DOCUSATE 8.6/50MG TABLET. PO SCH (08:49)
[2017-06-12] MEDS: INSULIN ASPART 300 UNITS/3 ML INSULN.PEN SQ SCH ×4 (08:52→12:28)
[2017-06-12] MEDS: LISINOPRIL 40 MG TABLET. PO SCH (08:54)
[2017-06-12] MEDS ORDERED: LISI40TA PO (10:51)
[2017-06-12] MEDS ORDERED: PROC10TA57 PO (10:51)
[2017-06-12] MEDS ORDERED: GABA-586 PO (10:51)
[2017-06-12] MEDS ORDERED: HYDR-2758 PO (10:51)
[2017-06-12 11:00] VITALS: BP 116/84
--- NOTE | 2017-06-12 11:49 | PDOC ---
Subjective: Subjective: Feeling better, doesn't like food, happy she gets to go home. Objective: Objective: Reviewed notes. D/w RN - pt reports vomiting after breakfast, not witnessed. Vital Signs: Vital Signs Date Time Temp Pulse Resp B/P (MAP) Pulse Ox O2 Delivery O2 Flow Rate FiO2 06/12/17 11:00 97.5 60 18 116/84 (95) 97 Nasal Cannula 1.0 97.5 Labs: Laboratory Tests Test 06/11/17 16:44 06/11/17 21:03 06/12/17 07:13 06/12/17 10:38 Glucose (Fingerstick) 238 mg/dL (70-99) 273 mg/dL (70-99) 189 mg/dL (70-99) 117 mg/dL (70-99) PE: GEN: NAD, sitting on edge of bed LUNGS: CTAB HEART: RRR ABD: RUQ tenderness NEURO/PSYCH: A & O 3, more cheerful today A/P: S/p cholecystectomy 06/10 -- Improved. DC per primary. Follow-up w/ GI PRN. Okay to continue PPI for reflux. MACKENZIE HOGAN Jun 12, 2017 11:49
--- NOTE | 2017-06-12 11:52 | PATHOLOGY ---
PATHOLOGY REPORT * * * * * * * * FINAL DIAGNOSIS: Gallbladder (gallbladder and contents, cholecystectomy): - Chronic cholecystitis. (SHA:arleen; 06/12/2017) REPORT ELECTRONICALLY SIGNED BY: Jack Hunter M.D. DATE/TIME: 06/12/2017 11:52 * * * * * * * * GROSS PATHOLOGY: Received in formalin labeled "Jaqueline Powell, gallbladder and contents," is a 7.8 x 3.2 x 1.2 cm, partially opened gallbladder with dark green bile stained serosal surfaces. Opening the gallbladder reveals dark green velvety mucosa and an average wall thickness of 0.3 cm. Calculi are not present and no masses are noted grossly. Stope Miner sections from the body and fundus are submitted along with the proximal margin in cassette A1. INITIAL CPT CODE(S): A; 42762 Professional services performed [place] [facility] [place] [address] Technical services performed by [email or web address] at [address] [place] [address], [facility] [address], [place] [address]. SPECIMEN(S) RECEIVED: A.Gallbladder and contents CLINICAL HISTORY: Intractable abdominal pain PATIENT: JAQUELINE POWELL /AGE: 7 1995 (Age: 22) PATIENT #: [id number] ALT CASE #: SPECIMEN COLLECTION DATE: 06/10/2017 SPECIMEN RECEIVED DATE: 06/11/2017 [facility] - [address] [place] [address] - PHONE: [phone] * * * END OF REPORT * * *
[2017-06-12] MEDS: oxyCODONE IR 5 MG TABLET PO PRN (12:21)
--- NOTE | 2017-06-12 16:01 | PDOC3 ---
Discharge Summary Visit Information Date of Admission: Jun 04, 2017 Date of Discharge: Jun 12, 2017 Admitting Diagnosis: abd pain Final Diagnosis abd pain with N/V, with chronic cholecystitis poorly controlled DM type 1 Brittle DM History Asthma GERD chronic cholecystitis gastroparesis HTN accelerated on admit Dm1 w. peripheral neuropathy Problems Medical Problems: (1) Intractable abdominal pain Status: Acute (2) Nausea and vomiting Status: Acute (3) Uncontrolled diabetes mellitus Status: Acute Brief Hospital Course Allergies Allergies Coded Allergies Type Severity Reaction Last Updated Verified No Known Medication Allergies Allergy Unknown 06/10/17 Yes Vital Signs Vital Signs Date Time Temp Pulse Resp B/P (MAP) Pulse Ox O2 Delivery O2 Flow Rate FiO2 06/12/17 11:00 97.5 60 18 116/84 (95) 100 Room Air 97.5 Lab Results Laboratory Tests Test 06/10/17 16:50 06/10/17 20:11 06/11/17 07:45 06/11/17 11:38 Glucose (Fingerstick) 184 mg/dL (70-99) 207 mg/dL (70-99) 227 mg/dL (70-99) 380 mg/dL (70-99) Test 06/11/17 16:44 06/11/17 21:03 06/12/17 07:13 06/12/17 10:38 Glucose (Fingerstick) 238 mg/dL (70-99) 273 mg/dL (70-99) 189 mg/dL (70-99) 117 mg/dL (70-99) Laboratory Tests Test 06/11/17 16:44 06/11/17 21:03 06/12/17 07:13 06/12/17 10:38 Glucose (Fingerstick) 238 mg/dL (70-99) 273 mg/dL (70-99) 189 mg/dL (70-99) 117 mg/dL (70-99) Brief Hospital Course Ms. Dawson is a 22 old [sex] who presented with admit with acute abd pain, poorlyu controlled DM1 armando surg , ongoing pain, but improved markedly at DC Discharge Information Condition at Discharge: Improved Follow Up: Weeks Disposition/Orders: D/C to Home Scheduled Gabapentin (Gabapentin), 300 MG PO TID Insulin Aspart (Novolog), 10 UNITS SQ TIDAC Insulin Detemir (Levemir Flextouch), 20 UNIT SQ HS Lisinopril (Lisinopril), 40 MG PO DAILY Scheduled PRN Hydrocodone Bit/Acetaminophen (Hydrocodone-Apap 10-325 ), 1 TAB PO PRN Q6HRS PRN for PAIN Hydrocodone Bit/Acetaminophen (Hydrocodone-Apap 5-325 ), 1 TAB PO PRN Q4HRS PRN for PAIN Prochlorperazine Maleate (Compazine), 10 MG PO Q8HRS PRN for NAUSEA Discontinued Medications Lisinopril (Lisinopril), 20 MG PO DAILY Lisinopril (Lisinopril), 1 TAB PO DAILY Sulfamethoxazole/Trimethoprim (Bactrim Ds Tablet), 1 TAB PO BID Patient Instructions Patient Instructions > 30 min JANAY NEGRETE MD Jun 12, 2017 16:01
== END 2017-06-12 12:58 | disposition home or self-care (01) | DRG 418 ==
LOC: ER 15:51 → 4 NORTH 19:22
PROVIDERS: ADMIT Internal Medicine; ATTEND Internal Medicine
PROC: BF101ZZ Fluoroscopy of Bile Ducts using Low Osmolar Contrast (ICD-10-PCS; 2017-06-10)
PROC: 0FT44ZZ Resection of Gallbladder, Percutaneous Endoscopic Approach (ICD-10-PCS; principal; 2017-06-10 13:00)
DX: K81.1 Chronic cholecystitis (principal); E44.0 Moderate protein-calorie malnutrition; K31.84 Gastroparesis; E10.42 Type 1 diabetes mellitus with diabetic polyneuropathy; E10.65 Type 1 diabetes mellitus with hyperglycemia; I10 Essential (primary) hypertension; J45.909 Unspecified asthma, uncomplicated; K21.9 Gastro-esophageal reflux disease without esophagitis; F32.9 Major depressive disorder, single episode, unspecified; G89.29 Other chronic pain; R80.9 Proteinuria, unspecified; R81 Glycosuria; F12.90 Cannabis use, unspecified, uncomplicated; K59.00 Constipation, unspecified; K82.8 Other specified diseases of gallbladder; Z79.4 Long term (current) use of insulin; Z83.3 Family history of diabetes mellitus; Z68.21 Body mass index [BMI] 21.0-21.9, adult
CPT/HCPCS: 36415; 74022; 74300; 78264; 80048; 80053; 80069; 81001; 81025; 82962; 83036; 83690; 85025; 85610; 88304; 96361; 96374; 96375; A9541; J0690; J0780; J1100; J1644; J1815; J2250; J2270; J2370; J2405; J2704; J2710; J2765; J3010; J3490; J7030; J7120; Q9967; 99285-25; J2001

== ENCOUNTER 2017-07-09 19:49 | Inpatient (IN) | payer MEDICAID ==
[~2017-07-09] VITALS: Ht 160 cm; Wt 48.6 kg
[~2017-07-09 19:49] MED LIST changes: +HYDR-2758 PO; +LISI40TA PO; +PANT20TA2 PO; +PROC10TA57 PO; +PROC5TAB14 PO; +SUCR1TAB35 PO
[2017-07-09] MEDS ORDERED: IV NORMAL SALINE 1000ML BAG 1,000 ML IV SCH (19:57)
[2017-07-09] MEDS ORDERED: ONDANSETRON PF 4 MG/2 ML VIAL. IV ONE (20:00)
[2017-07-09 20:12] LABS: BILIRUBIN,URINE NEGATIVE (NEG); GLUCOSE,URINE >=1000 mg/dL (NEG); NITRITE,URINE NEGATIVE (NEG); PROTEIN,URINE NEGATIVE (NEG-TRACE); UROBILINOGEN,URINE 0.2 mg/dL (0.2 mg/dL)
[2017-07-09 20:15] LABS: BARBITURATES NEG (NEG); BENZODIAZEPINES NEG (NEG); CANNABINOIDS POS (NEG); COCAINE NEG (NEG); METHADONE NEG (NEG); OPIATES NEG (NEG); PHENCYCLIDINE NEG (NEG)
[2017-07-09 20:22] LABS: BACTERIA,URINE MODERATE /HPF (0-FEW); RBC,URINE OCC /HPF (0-2); SQUAMOUS EPITHELIAL CELL,UR MOD /LPF
[2017-07-09] MEDS: fentaNYL PF VIAL 100 MCG/2 ML VIAL IV PRN ×3 (20:22→23:04)
[2017-07-09] MEDS ORDERED: CONTRAST GIVEN MC PRN (21:00)
[2017-07-09] MEDS ORDERED: IOHEXOL 300 MG/ML 75 ML VIAL IV ONE (21:00)
[2017-07-09 21:04] LABS: BASO # 0.1 x10^3/uL (0.0-0.2); BASO % 1 % (0-3); EOS % 1 % (0-3); HEMATOCRIT 37.9 % (36.0-47.0); HEMOGLOBIN 12.6 g/dL (12.0-15.5); LYMPH # 2.7 x10^3/uL (1.0-4.8); LYMPH % 43 % (24-48); MEAN CORPUSCULAR HEMOGLOBIN 30 pg (25-35); MEAN CORPUSCULAR HGB CONC 33 g/dL (31-37); MEAN CORPUSCULAR VOLUME 91 fL (79-100); MONO % 7 % (0-9); NEUT % 48 % (31-73); PLATELET COUNT 473 x10^3/uL (140-400); RED BLOOD COUNT 4.18 x10^6/uL (3.50-5.40); RED CELL DISTRIBUTION WIDTH 13.3 % (11.5-14.5); WHITE BLOOD COUNT 6.3 x10^3/uL (4.0-11.0)
[2017-07-09 21:20] LABS: CALCIUM 8.7 mg/dL (8.5-10.1); CREATININE 0.6 mg/dL (0.6-1.0); GFR 149.9; POTASSIUM 4.1 mmol/L (3.5-5.1)
[2017-07-09 21:27] LABS: ALBUMIN 3.2 g/dL (3.4-5.0); TOTAL BILIRUBIN 0.6 mg/dL (0.2-1.0); TOTAL PROTEIN 6.3 g/dL (6.4-8.2)
--- NOTE | 2017-07-09 21:59 | RAD ---
PQRS Compliance Statement: One or more of the following individualized dose reduction techniques were utilized for this examination: 1. Automated exposure control 2. Adjustment of the mA and/or kV according to patient size 3. Use of iterative reconstruction technique CT abdomen/pelvis with contrast July 09, 2017 at 9:32 PM INDICATION: Abdominal pain status post laparoscopic appendectomy 8 days ago. COMPARISON: CT abdomen/pelvis June 25, 2017 TECHNIQUE: Multiple axial CT images of the abdomen and pelvis are obtained after the administration of intravenous contrast. 75 cc Omnipaque 300 was administered intravenously. FINDINGS: Lung bases are clear. Heart size is within normal limits. Liver, spleen, bilateral adrenal glands, and pancreas are within normal limits. Gallbladder surgically absent. No intrahepatic or extrahepatic biliary ductal dilatation. The abdominal aorta is normal in course and caliber. There are no pathologically enlarged lymph nodes in abdomen or pelvis. There is no free fluid or free intraperitoneal air. Lack of intraperitoneal fat limits evaluation for lymphadenopathy. Kidneys enhance symmetrically. No hydronephrosis. No suspicious renal mass. Oral contrast was not administered. Appendix is surgically absent. No dilated loops of small or large bowel are identified. No significant fluid collection is identified in the right lower quadrant. Mild umbilical fat stranding may be secondary to recent port placement. No suspicious osseous lesions are identified. IMPRESSION: 1. Status post appendectomy without evidence for postoperative fluid collection. Mild periumbilical fat stranding may be secondary to recent port placement for laparoscopic surgery. 2. Status post cholecystectomy without evidence for intrahepatic or extrahepatic biliary ductal dilatation. Electronically signed by: Maria Del Rosario Harry MD (07/09/2017 9:56 PM) [facility]
[2017-07-10] VITALS (9 sets, daily range): BP systolic 94–172; BP diastolic 40–113
[2017-07-10] MEDS ORDERED: HALOPERIDOL LACTATE 5 MG/ML VIAL. IVP ONE (00:30)
--- NOTE | 2017-07-10 01:16 | ED.ADGEN ---
Past Medical History Past Medical History: Depression, Diabetes-Type I, GERD, Hypertension, Pancreatitis Additional Past Medical Histor: MISCARRIAGES back pain neuropathy, " GALLBLADDER PROBLEMS", chronic abd pain Past Surgical History: Appendectomy, Cholecystectomy, Other Additional Past Surgical Histo: I&D abscess groin Alcohol Use: Rarely Drug Use: Marijuana Adult General Chief Complaint Chief Complaint: POST-OP PROBLEM HPI HPI Patient is a 22 year old woman, history of type 2 diabetes mellitus, and is insulin-dependent, with multiple episodes of DKA previously, status post cholecystectomy, and a laparoscopic appendectomy that occurred on 02 July at , who presents emergency Department with complaint of epigastric abdominal pain, associated with nausea. Patient states that she's been having regular bowel movements daily, denies any fevers or chills, is noted to be tachycardic and hypertensive upon arousing the ED. She states that she was discharged from without any pain medication, and using Tylenol home without success. She states she has an appointment to follow-up with her surgeon next week. Review of Systems Review of Systems Constitutional: Denies fever or chills. [] Eyes: Denies change in visual acuity. [] HENT: Denies nasal congestion or sore throat. [] Respiratory: Denies cough or shortness of breath. [] Cardiovascular: Denies chest pain or edema. [] GI: Cramping epigastric abdominal pain, nausea, vomiting, no bloody stools or diarrhea. : Denies dysuria. [] Musculoskeletal: Denies back pain or joint pain. [] Integument: Denies rash. [] Neurologic: Denies headache, focal weakness or sensory changes. [] Endocrine: Denies polyuria or polydipsia. [] Lymphatic: Denies swollen glands. [] Psychiatric: Denies depression or anxiety. [] Current Medications Current Medications Current Medications Medications (Trade) Dose Ordered Sig/Bakari Start Time Stop Time Status Last Admin Dose Admin Fentanyl Citrate (Fentanyl 2ml Vial) 25 mcg PRN Q15MIN PRN 07/09/17 20:00 07/10/17 19:59 07/09/17 23:04 25 MCG Haloperidol Lactate (Haldol) 5 mg 1X ONCE 07/10/17 00:30 07/10/17 00:31 DC 07/10/17 00:26 5 MG Info (Do NOT chart on this entry -- for MONITORING) 1 each PRN DAILY PRN 07/09/17 21:00 07/11/17 20:59 Iohexol (Omnipaque 300 Mg/ml) 75 ml 1X ONCE 07/09/17 21:00 07/09/17 21:01 DC 07/09/17 21:00 75 ML Ondansetron HCl (Zofran) 4 mg 1X ONCE 07/09/17 20:00 07/09/17 20:01 DC 07/09/17 20:22 4 MG Sodium Chloride 1,000 ml @ 1,000 mls/hr Q1H 07/09/17 19:57 07/09/17 20:56 DC 07/09/17 20:23 1,000 MLS/HR Allergies Allergies Allergies Coded Allergies Type Severity Reaction Last Updated Verified No Known Medication Allergies Allergy Unknown 06/10/17 Yes Physical Exam Physical Exam Constitutional: Well developed, well nourished, patient is tearful, non-toxic appearance. [] HENT: Normocephalic, atraumatic, bilateral external ears normal, oropharynx moist, no oral exudates, nose normal. [] Eyes: PERRLA, EOMI, conjunctiva normal, no discharge. [] Neck: Normal range of motion, no tenderness, supple, no stridor. [] Cardiovascular:Heart rate regular rhythm, no murmur, S1, S2, no rubs or gallops. [] Lungs & Thorax: Bilateral breath sounds clear to auscultation, no wheezing, rhonchi, rales. No chest wall crepitus or tenderness. [] Abdomen: Bowel sounds normal, soft, mild initial patient in the epigastric region, also down the patient's lab Sites, sites are clean dry and intact, no masses, no pulsatile masses. [] Skin: Warm, dry, no erythema, no rash. [] Back: No tenderness, no CVA tenderness. [] Extremities: No tenderness, no cyanosis, no clubbing, ROM intact, no edema. [] Neurologic: Alert and oriented X 3, normal motor function, normal sensory function, no focal deficits noted. [] Psychologic: Affect normal, judgement normal, mood normal. [] Current Patient Data Vital Signs Vital Signs Date Time Temp Pulse Resp B/P (MAP) Pulse Ox O2 Delivery O2 Flow Rate FiO2 07/10/17 02:00 102 15 191/125 (147) 99 07/10/17 01:13 Room Air 07/09/17 19:50 98.8 98.8 Lab Values Laboratory Tests Test 07/09/17 19:53 07/09/17 20:00 07/09/17 20:01 07/09/17 20:50 Glucose (Fingerstick) 346 mg/dL (70-99) H Urine Collection Type Unknown Urine Color Yellow Urine Clarity Clear Urine pH 6.0 Urine Specific [place] >=1.030 Urine Protein Negative mg/dL (NEG-TRACE) Urine Glucose (UA) >=1000 mg/dL (NEG) Urine Ketones (Stick) Trace mg/dL (NEG) Urine Blood Negative (NEG) Urine Nitrite Negative (NEG) Urine Bilirubin Negative (NEG) Urine Urobilinogen Dipstick 0.2 mg/dL (0.2 mg/dL) Urine Leukocyte Esterase Negative (NEG) Urine RBC Occ /HPF (0-2) Urine WBC 1-4 /HPF (0-4) Urine Squamous Epithelial Cells Mod /LPF Urine Bacteria Moderate /HPF (0-FEW) Urine Mucus Slight /LPF Urine Opiates Screen Neg (NEG) Urine Methadone Screen Neg (NEG) Urine Barbiturates Neg (NEG) Urine Phencyclidine Screen Neg (NEG) Urine Amphetamine/Methamphetamine Neg (NEG) Urine Benzodiazepines Screen Neg (NEG) Urine Cocaine Screen Neg (NEG) Urine Cannabinoids Screen Pos (NEG) Urine Ethyl Alcohol Neg (NEG) POC Urine HCG, Qualitative Hcg negative (Negative) White Blood Count 6.3 x10^3/uL (4.0-11.0) Red Blood Count 4.18 x10^6/uL (3.50-5.40) Hemoglobin 12.6 g/dL (12.0-15.5) Hematocrit 37.9 % (36.0-47.0) Mean Corpuscular Volume 91 fL (79-100) Mean Corpuscular Hemoglobin 30 pg (25-35) Mean Corpuscular Hemoglobin Concent 33 g/dL (31-37) Red Cell Distribution Width 13.3 % (11.5-14.5) Platelet Count 473 x10^3/uL (140-400) H Neutrophils (%) (Auto) 48 % (31-73) Lymphocytes (%) (Auto) 43 % (24-48) Monocytes (%) (Auto) 7 % (0-9) Eosinophils (%) (Auto) 1 % (0-3) Basophils (%) (Auto) 1 % (0-3) Neutrophils # (Auto) 3.0 x10^3uL (1.8-7.7) Lymphocytes # (Auto) 2.7 x10^3/uL (1.0-4.8) Monocytes # (Auto) 0.4 x10^3/uL (0.0-1.1) Eosinophils # (Auto) 0.1 x10^3/uL (0.0-0.7) Basophils # (Auto) 0.1 x10^3/uL (0.0-0.2) Sodium Level 140 mmol/L (136-145) Potassium Level 4.1 mmol/L (3.5-5.1) Chloride Level 104 mmol/L (98-107) Carbon Dioxide Level 28 mmol/L (21-32) Anion Gap 8 (6-14) Blood Urea Nitrogen 11 mg/dL (7-20) Creatinine 0.6 mg/dL (0.6-1.0) Estimated GFR (Cockcroft-Gault) 149.9 BUN/Creatinine Ratio 18 (6-20) Glucose Level 345 mg/dL (70-99) H Lactic Acid Level 1.1 mmol/L (0.4-2.0) Calcium Level 8.7 mg/dL (8.5-10.1) Total Bilirubin 0.6 mg/dL (0.2-1.0) Aspartate Amino Transferase (AST) 23 U/L (15-37) Alanine Aminotransferase (ALT) 26 U/L (14-59) Alkaline Phosphatase 94 U/L (46-116) Total Protein 6.3 g/dL (6.4-8.2) L Albumin 3.2 g/dL (3.4-5.0) L Albumin/Globulin Ratio 1.0 (1.0-1.7) Lipase 79 U/L (73-393) Laboratory Tests 07/09/17 20:50 Laboratory Tests 07/09/17 20:50 EKG EKG ECG: Rhythm strip: Heart rate 108 beats/minute, sinus tachycardia, no ectopy. As interpreted by me.[] ECG: Ear 0245: Sinus tachycardia, heart rate 102 beats are minute, upright axis , QTC of 439, GA 126, QRS of 76, contour normality is noted in the anterior lateral leads, with mild baseline artifact noted, [place] ECG, does not meet STEMI criteria. As interpreted by me. Radiology/Procedures Radiology/Procedures [][facility] [address] [place] [address] IMAGING REPORT Signed PATIENT: CARLITOS POWELL ACCOUNT: [id number] : 1995 LOCATION: ER AGE: 22 SEX: F EXAM STATUS: REG ER ORD. PHYSICIAN: WYANE DESOUZA DO REASON: abd pain/ s/p lap appy PROCEDURE: CT ABD PELV W/ IV CONTRST ONLY PQRS Compliance Statement: One or more of the following individualized dose reduction techniques were utilized for this examination: 1. Automated exposure control 2. Adjustment of the mA and/or kV according to patient size 3. Use of iterative reconstruction technique CT abdomen/pelvis with contrast July 09, 2017 at 9:32 PM INDICATION: Abdominal pain status post laparoscopic appendectomy 8 days ago. COMPARISON: CT abdomen/pelvis June 25, 2017 TECHNIQUE: Multiple axial CT images of the abdomen and pelvis are obtained after the administration of intravenous contrast. 75 cc Omnipaque 300 was administered intravenously. FINDINGS: Lung bases are clear. Heart size is within normal limits. Liver, spleen, bilateral adrenal glands, and pancreas are within normal limits. Gallbladder surgically absent. No intrahepatic or extrahepatic biliary ductal dilatation. The abdominal aorta is normal in course and caliber. There are no pathologically enlarged lymph nodes in abdomen or pelvis. There is no free fluid or free intraperitoneal air. Lack of intraperitoneal fat limits evaluation for lymphadenopathy. Kidneys enhance symmetrically. No hydronephrosis. No suspicious renal mass. Oral contrast was not administered. Appendix is surgically absent. No dilated loops of small or large bowel are identified. No significant fluid collection is identified in the right lower quadrant. Mild umbilical fat stranding may be secondary to recent port placement. No suspicious osseous lesions are identified. IMPRESSION: 1. Status post appendectomy without evidence for postoperative fluid collection. Mild periumbilical fat stranding may be secondary to recent port placement for laparoscopic surgery. 2. Status post cholecystectomy without evidence for intrahepatic or extrahepatic biliary ductal dilatation. Electronically signed by: Blayne La MD (07/09/2017 9:56 PM) [facility] DICTATED and SIGNED BY: BLAYNE LA MD DATE: 07/09/172150 CC: WAYNE DESOUZA DO; UNKNOWN PCP NAME ~ Course & Med Decision Making Course & Med Decision Making Pertinent Labs and Imaging studies reviewed. (See chart for details) Patient with tachycardia noted, heart rate in the low 100s, also noted be hypertensive, 160s over 1 teens, oxygen saturation is 98% room air, respiratory rate 18-20. Patient received IV analgesia, and antiemetics out of her vomiting ECG, also received IV hydration. CT of abdomen and pelvis obtained for discussion based on patient's recent surgery and complaints. CT of abdomen and pelvis did not reveal any evidence of acutely concerning findings consistent with postsurgical changes, no evidence of acute infection or fluid collection. Mild fat stranding noted, which is stated to be consistent with patient's recent instrumentation. Patient received multiple doses of pain medication, is noted to be tensing up her upper extremity 1 blood pressure is obtained, she received Haldol as well, recently had use of marijuana. Patient does state that she is marijuana earlier this week. She states that she is feeling better and would like to follow-up with her surgeon at , but is requesting pain medication for home use. Noted to still be hypertensive, and mildly tachycardic , although the heart rate is improved. Discussed the patient that we cannot discharge with narcotic medication, as it is not appropriate for the situation, patient also does have a history of drug-seeking behavior I did speak with the surgery team at , patient had a couple patient during her surgery, as stated she has no evidence of acute surgical issue or other acute abdominal issue on imaging or laboratory studies. Agreeable with plan for the patient to follow-up as scheduled, states that she has an appointment scheduled for 18 July. However, after receiving Haldol, multiple doses of pain medication, IV fluids, patient remains tachycardic, and persistently hypertensive, 180s to 200s over 1 teens to 120s. Patient states that her pain is better at this time, as stated was initially located in the epigastric region. Patient received 2 doses of labetalol in the ED, she she has a history of hypertension but has not been previously placed on blood pressure medications. After a lengthy evaluation. Reassessment in the emergency department, where there was no further vomiting, with improvement of her pain, but persistence of mild tachycardia and hypertension, as blood pressures remained in the 180s over the 100s, without improvement, patient was agreeable for admission or the hospital for further evaluation of hypertension, as there does not appear to be any evidence of acutely concerning abdominal issues. Patient's symptoms may be consistent with gastroparesis, which she has following her type 1 diabetes mellitus. Patient received labetalol 2 in the emergency department, was also ordered hydralazine. Consultation was placed for cardiology. Patient admitted to Dr Ortega of internal medicine with bridge orders entered as stated. Dragon Disclaimer Dragon Disclaimer This electronic medical record was generated, in whole or in part, using a voice recognition dictation system. Departure Impression: Primary Impression: Hypertension Disposition: ADMITTED INPATIENT Admitting Physician: Catalina Ortega Condition: STABLE WAYNE DESOUZA DO Jul 10, 2017 01:16
[2017-07-10] MEDS ORDERED: LABETALOL 20 MG/4 ML DISP.SYRIN. IVP ONE ×2 (02:15→03:00)
[2017-07-10] MEDS ORDERED: DICYCLOMINE HCL 10 MG CAPSULE PO PRN (03:00)
[2017-07-10] MEDS ORDERED: ONDANSETRON PF 4 MG/2 ML VIAL. IV PRN ×2 (03:00→04:45)
[2017-07-10] MEDS ORDERED: METOCLOPRAMIDE HCL 10 MG/2 ML VIAL. IV PRN (03:00)
[2017-07-10] MEDS ORDERED: ACETAMINOPHEN 325 MG TABLET. PO PRN (03:00)
[2017-07-10] MEDS ORDERED: DEXTROSE 50% 25 GM / 50ML DISP.SYRIN. IV PRN ×2 (03:15→08:30)
[2017-07-10] MEDS: hydrALAZINE 20 MG/ML VIAL. IVP PRN (03:41)
[2017-07-10] MEDS: IV NORMAL SALINE 1000ML BAG 1,000 ML IV SCH ×3 (03:41→18:01)
--- NOTE | 2017-07-10 04:42 | PDOC1 ---
History and Physical Date of Admission Date of Admission DATE: 07/10/17 TIME: 04:35 Identification/Chief Complaint Chief Complaint abd pain - LATE ENTRY PT SEEN JUL 09 AT ER BEFORE 9 PM. APOLLO DESOUZA Problems: Source Source: Caregiver, Chart review, Patient History of Present Illness History of Present Illness 22 yo AA female known DM with gastroparesis comes in again after approx 1 -2 weeks after recent admit here, this time she comes for abd pain at post op site. LAst week, she had lap appy at . She comes bec of severe pain hypogastric area near post op site. NO guarding but curled up and crying. Scar/ wound looks ok. LAbs ok except for BS 360s. BP was high. Dw ER, attempt to let [facility] know, they rejected transfer and says her current pain is unrelated from her recent appy,. Pt admitted to ICU for accelerated HTN Past Medical History Cardiovascular: No pertinent hx Pulmonary: Asthma GI: GERD, Other Heme/Onc: No pertinent hx Hepatobiliary: No pertinent hx Psych: No pertinent hx Rheumatologic: No pertinent hx Infectious disease: No pertinent hx Renal/: No pertinent hx Endocrine: Diabetes Past Surgical History Past Surgical History: Cholecystectomy, No pertinent history Family History Family History: No Significant, Other Social History Smoke: No ALCOHOL: none Drugs: Marijuana Current Problem List Problem List Problems Medical Problems: (1) Hypertension Status: Acute Problems: Current Medications Current Medications Current Medications Fentanyl Citrate (Fentanyl 2ml Vial) 25 mcg PRN Q15MIN PRN IV PAIN GREATER THAN 3/10 Last administered on 07/09/17 23:04; Start 07/09/17 at 20:00; Stop at 19:59 Sodium Chloride 1,000 ml @ 1,000 mls/hr Q1H IV Last administered on 07/09/17 20:23; Start 07/09/17 at 19:57; Stop 07/09/17 at 20:56; Status DC Ondansetron HCl (Zofran) 4 mg 1X ONCE IV Last administered on 07/09/17 20:22 ; Start 07/09/17 at 20:00; Stop 07/09/17 at 20:01; Status DC Iohexol (Omnipaque 300 Mg/ml) 75 ml 1X ONCE IV Last administered on 07/09/17 21:00; Start 07/09/17 at 21:00; Stop 07/09/17 at 21:01; Status DC Info (Do NOT chart on this entry -- for MONITORING) 1 each PRN DAILY PRN MC SEE COMMENTS; Start 07/09/17 at 21:00; Stop 07/11/17 at 20:59 Haloperidol Lactate (Haldol) 5 mg 1X ONCE IVP Last administered on 07/10/17 00:26; Start 07/10/17 at 00:30; Stop 07/10/17 at 00:31; Status DC Labetalol HCl (Normodyne) 10 mg 1X ONCE IVP Last administered on 07/10/17 02: 15; Start 07/10/17 at 02:15; Stop 07/10/17 at 02:16; Status DC Labetalol HCl (Normodyne) 20 mg 1X ONCE IVP Last administered on 07/10/17 02: 58; Start 07/10/17 at 03:00; Stop 07/10/17 at 03:01; Status DC Ondansetron HCl (Zofran) 4 mg PRN Q8HRS PRN IV NAUSEA/VOMITING; Start 07/10/17 at 03:00; Stop 07/11/17 at 02:59 Sodium Chloride 1,000 ml @ 125 mls/hr Q8H IV Last administered on 07/10/17 03 :41; Start 07/10/17 at 03:00; Stop 07/11/17 at 02:59 Acetaminophen (Tylenol) 650 mg PRN Q4HRS PRN PO FEVER; Start 07/10/17 at 03:00 ; Stop 07/11/17 at 02:59 Ketorolac Tromethamine (Toradol) 10 mg PRN Q6HRS PRN IV PAIN; Start 07/10/17 at 03:00; Stop 07/15/17 at 02:59 Metoclopramide HCl (Reglan) 10 mg PRN Q6HRS PRN IV NAUSEA/VOMITING; Start 07/10 at 03:00 Hydralazine HCl (Apresoline) 10 mg PRN Q4HRS PRN IVP ELEVATED BP, SEE COMMENTS Last administered on 07/10/17 03:41; Start 07/10/17 at 03:00 Dicyclomine HCl (Bentyl) 10 mg PRN QID PRN PO ABD PAIN; Start 07/10/17 at 03:00 Insulin Aspart (NovoLOG) 0-5 UNITS TIDWMEALS SQ ; Start 07/10/17 at 08:00 Dextrose (Dextrose 50%-Water Syringe) 12.5 gm PRN Q15MIN PRN IV SEE COMMENTS; Start 07/10/17 at 03:15 Active Scripts Active Protonix (Pantoprazole Sodium) 20 Mg Tablet.dr 1 Tab PO DAILY Carafate (Sucralfate) 1 Gm Tablet 1 Tab PO QIDACHS Prochlorperazine Maleate 10 Mg Tablet 0.5 Tab PO ACTID Compazine (Prochlorperazine Maleate) 10 Mg Tablet 10 Mg PO Q8HRS PRN Lisinopril 40 Mg Tablet 40 Mg PO DAILY Hydrocodone-Apap 5-325 (Hydrocodone Bit/Acetaminophen) 1 Each Tablet 1 Tab PO PRN Q4HRS PRN Gabapentin 300 Mg Capsule 300 Mg PO TID Hydrocodone-Apap 10-325 (Hydrocodone Bit/Acetaminophen) 1 Each Tablet 1 Tab PO PRN Q6HRS PRN Levemir Flextouch (Insulin Detemir) 100 Unit/1 Ml Insuln.pen 20 Unit SQ HS 30 Days Novolog (Insulin Aspart) 100 Unit/1 Ml Cartridge 10 Units SQ TIDAC 30 Days Allergies Allergies: Coded Allergies: No Known Medication Allergies (Verified Allergy, Unknown, 06/10/17) ROS Review of System aBD PAIN Physical Exam General: Alert, Oriented X3, Cooperative, No acute distress, Other (but looked uncomfy at ER, curled up, crying) HEENT: PERRLA Lungs: Clear to auscultation, Normal air movement Heart: S1S2, RRR, no thrills, no rubs, no gallops, no murmurs Cardiovascular: S1, S2 Abdomen: Normal bowel sounds, Soft, No tenderness, No hepatosplenomegaly, No masses, Other (lap wounds from appy seen - looks great) Extremities: No clubbing, No cyanosis, No edema, Normal pulses, No tenderness/ swelling Neuro: Normal gait, Normal speech, Strength at 5/5 X4 ext, Normal tone, Sensation intact, Cranial nerves 3-12 NL, Reflexes 2+ Psych/Mental Status: Mental status NL, Mood NL Vitals Vitals Vital Signs Date Time Temp Pulse Resp B/P (MAP) Pulse Ox O2 Delivery O2 Flow Rate FiO2 07/10/17 04:15 113 16 123/69 (87) 100 Room Air 07/10/17 03:30 98.6 98.6 Labs Labs Laboratory Tests Test 07/09/17 19:53 07/09/17 20:00 07/09/17 20:01 07/09/17 20:50 Glucose (Fingerstick) 346 mg/dL (70-99) Urine Collection Type Unknown Urine Color Yellow Urine Clarity Clear Urine pH 6.0 Urine Specific [place] >=1.030 Urine Protein Negative mg/dL (NEG-TRACE) Urine Glucose (UA) >=1000 mg/dL (NEG) Urine Ketones (Stick) Trace mg/dL (NEG) Urine Blood Negative (NEG) Urine Nitrite Negative (NEG) Urine Bilirubin Negative (NEG) Urine Urobilinogen Dipstick 0.2 mg/dL (0.2 mg/dL) Urine Leukocyte Esterase Negative (NEG) Urine RBC Occ /HPF (0-2) Urine WBC 1-4 /HPF (0-4) Urine Squamous Epithelial Cells Mod /LPF Urine Bacteria Moderate /HPF (0-FEW) Urine Mucus Slight /LPF Urine Opiates Screen Neg (NEG) Urine Methadone Screen Neg (NEG) Urine Barbiturates Neg (NEG) Urine Phencyclidine Screen Neg (NEG) Urine Amphetamine/Methamphetamine Neg (NEG) Urine Benzodiazepines Screen Neg (NEG) Urine Cocaine Screen Neg (NEG) Urine Cannabinoids Screen Pos (NEG) Urine Ethyl Alcohol Neg (NEG) Bedside Urine HCG, Qualitative Hcg negative (Negative) White Blood Count 6.3 x10^3/uL (4.0-11.0) Red Blood Count 4.18 x10^6/uL (3.50-5.40) Hemoglobin 12.6 g/dL (12.0-15.5) Hematocrit 37.9 % (36.0-47.0) Mean Corpuscular Volume 91 fL (79-100) Mean Corpuscular Hemoglobin 30 pg (25-35) Mean Corpuscular Hemoglobin Concent 33 g/dL (31-37) Red Cell Distribution Width 13.3 % (11.5-14.5) Platelet Count 473 x10^3/uL (140-400) Neutrophils (%) (Auto) 48 % (31-73) Lymphocytes (%) (Auto) 43 % (24-48) Monocytes (%) (Auto) 7 % (0-9) Eosinophils (%) (Auto) 1 % (0-3) Basophils (%) (Auto) 1 % (0-3) Neutrophils # (Auto) 3.0 x10^3uL (1.8-7.7) Lymphocytes # (Auto) 2.7 x10^3/uL (1.0-4.8) Monocytes # (Auto) 0.4 x10^3/uL (0.0-1.1) Eosinophils # (Auto) 0.1 x10^3/uL (0.0-0.7) Basophils # (Auto) 0.1 x10^3/uL (0.0-0.2) Sodium Level 140 mmol/L (136-145) Potassium Level 4.1 mmol/L (3.5-5.1) Chloride Level 104 mmol/L (98-107) Carbon Dioxide Level 28 mmol/L (21-32) Anion Gap 8 (6-14) Blood Urea Nitrogen 11 mg/dL (7-20) Creatinine 0.6 mg/dL (0.6-1.0) Estimated GFR (Cockcroft-Gault) 149.9 BUN/Creatinine Ratio 18 (6-20) Glucose Level 345 mg/dL (70-99) Lactic Acid Level 1.1 mmol/L (0.4-2.0) Calcium Level 8.7 mg/dL (8.5-10.1) Total Bilirubin 0.6 mg/dL (0.2-1.0) Aspartate Amino Transf (AST/SGOT) 23 U/L (15-37) Alanine Aminotransferase (ALT/SGPT) 26 U/L (14-59) Alkaline Phosphatase 94 U/L (46-116) Total Protein 6.3 g/dL (6.4-8.2) Albumin 3.2 g/dL (3.4-5.0) Albumin/Globulin Ratio 1.0 (1.0-1.7) Lipase 79 U/L (73-393) Laboratory Tests Test 07/09/17 19:53 07/09/17 20:00 07/09/17 20:01 07/09/17 20:50 Glucose (Fingerstick) 346 mg/dL (70-99) Urine Collection Type Unknown Urine Color Yellow Urine Clarity Clear Urine pH 6.0 Urine Specific [place] >=1.030 Urine Protein Negative mg/dL (NEG-TRACE) Urine Glucose (UA) >=1000 mg/dL (NEG) Urine Ketones (Stick) Trace mg/dL (NEG) Urine Blood Negative (NEG) Urine Nitrite Negative (NEG) Urine Bilirubin Negative (NEG) Urine Urobilinogen Dipstick 0.2 mg/dL (0.2 mg/dL) Urine Leukocyte Esterase Negative (NEG) Urine RBC Occ /HPF (0-2) Urine WBC 1-4 /HPF (0-4) Urine Squamous Epithelial Cells Mod /LPF Urine Bacteria Moderate /HPF (0-FEW) Urine Mucus Slight /LPF Urine Opiates Screen Neg (NEG) Urine Methadone Screen Neg (NEG) Urine Barbiturates Neg (NEG) Urine Phencyclidine Screen Neg (NEG) Urine Amphetamine/Methamphetamine Neg (NEG) Urine Benzodiazepines Screen Neg (NEG) Urine Cocaine Screen Neg (NEG) Urine Cannabinoids Screen Pos (NEG) Urine Ethyl Alcohol Neg (NEG) Bedside Urine HCG, Qualitative Hcg negative (Negative) White Blood Count 6.3 x10^3/uL (4.0-11.0) Red Blood Count 4.18 x10^6/uL (3.50-5.40) Hemoglobin 12.6 g/dL (12.0-15.5) Hematocrit 37.9 % (36.0-47.0) Mean Corpuscular Volume 91 fL (79-100) Mean Corpuscular Hemoglobin 30 pg (25-35) Mean Corpuscular Hemoglobin Concent 33 g/dL (31-37) Red Cell Distribution Width 13.3 % (11.5-14.5) Platelet Count 473 x10^3/uL (140-400) Neutrophils (%) (Auto) 48 % (31-73) Lymphocytes (%) (Auto) 43 % (24-48) Monocytes (%) (Auto) 7 % (0-9) Eosinophils (%) (Auto) 1 % (0-3) Basophils (%) (Auto) 1 % (0-3) Neutrophils # (Auto) 3.0 x10^3uL (1.8-7.7) Lymphocytes # (Auto) 2.7 x10^3/uL (1.0-4.8) Monocytes # (Auto) 0.4 x10^3/uL (0.0-1.1) Eosinophils # (Auto) 0.1 x10^3/uL (0.0-0.7) Basophils # (Auto) 0.1 x10^3/uL (0.0-0.2) Sodium Level 140 mmol/L (136-145) Potassium Level 4.1 mmol/L (3.5-5.1) Chloride Level 104 mmol/L (98-107) Carbon Dioxide Level 28 mmol/L (21-32) Anion Gap 8 (6-14) Blood Urea Nitrogen 11 mg/dL (7-20) Creatinine 0.6 mg/dL (0.6-1.0) Estimated GFR (Cockcroft-Gault) 149.9 BUN/Creatinine Ratio 18 (6-20) Glucose Level 345 mg/dL (70-99) Lactic Acid Level 1.1 mmol/L (0.4-2.0) Calcium Level 8.7 mg/dL (8.5-10.1) Total Bilirubin 0.6 mg/dL (0.2-1.0) Aspartate Amino Transf (AST/SGOT) 23 U/L (15-37) Alanine Aminotransferase (ALT/SGPT) 26 U/L (14-59) Alkaline Phosphatase 94 U/L (46-116) Total Protein 6.3 g/dL (6.4-8.2) Albumin 3.2 g/dL (3.4-5.0) Albumin/Globulin Ratio 1.0 (1.0-1.7) Lipase 79 U/L (73-393) VTE Prophylaxis Ordered VTE Prophylaxis Devices: Yes VTE Pharmacological Prophylaxi: Yes Assessment/Plan Assessment/Plan 1. Abd pain around post op site - looks good, no guarding 2. DM 2 with gastroparesis, severe 3. ACCELERATED hTN POA 4. Narc dependence PLAN: Admit IV antihypertensives prn and resume home meds Control pain If bP remains elevated despite pain control, then need to adjust home anti HTN regimen IVF SHIft to SSI high dose, ADA diet Seen at ER Dw her at ER with her brother as witness re her constant requirement of narcs when she gets admitted - so far I have not received any overnight calls re that I did mention pain clinic as OP LC ABRAHAM MD Jul 10, 2017 04:42
[2017-07-10] MEDS ORDERED: PROCHLORPERAZINE 5 MG TABLET. PO PRN (04:45)
[2017-07-10] MEDS ORDERED: HYDROcodone/APAP 10/325 1 TAB TABLET PO PRN (04:45)
[2017-07-10] MEDS: KETOROLAC 15 MG/ML VIAL. IV PRN ×2 (06:15→18:03)
--- NOTE | 2017-07-10 06:19 | EKG ---
[facility] [address] [place] [address] Test Date: 2017-07-10 Test Time: 02:45:41 Pat Name: CARLITOS POWELL Department: Room: 102 1 Gender: F Net Application Support Specialist: NEO : [id number] Requested By: WAYNE DESOUZA Order Number: [id number] Reading MD: Pierre Thorne Measurements Intervals [place] Rate: 102 P: 37 KS: 126 QRS: 63 QRSD: 76 T: 47 QT: 334 QTc: 439 Interpretive Statements SINUS TACHYCARDIA QRS(T) CONTOUR ABNORMALITY NONSPECIFIC ST-T WAVE CHANGES. RI6.01 Unconfirmed report Compared to ECG 04/19/2017 09:57:58 No significant changes Electronically Signed On 07-19-2017 12:49:14 CDT by Pierre Thorne
[2017-07-10] MEDS: SUCRALFATE 1 GM TABLET. PO SCH ×4 (07:30→21:04)
[2017-07-10] MEDS: PANTOPRAZOLE 40 MG TABLET.DR. PO SCH (07:57)
[2017-07-10] MEDS: PROCHLORPERAZINE 5 MG TABLET. PO SCH ×3 (07:57→21:00)
[2017-07-10] MEDS: GABAPENTIN 300 MG CAPSULE. PO SCH ×3 (07:58→21:04)
[2017-07-10] MEDS: HYDROcodone/APAP 5/325MG 1 TAB TABLET PO PRN ×3 (07:58→21:05)
[2017-07-10] MEDS ORDERED: INSULIN ASPART 300 UNITS/3 ML INSULN.PEN SQ SCH (08:00)
[2017-07-10] MEDS: INSULIN ASPART 300 UNITS/3 ML INSULN.PEN SQ SCH ×7 (08:42→21:00)
--- NOTE | 2017-07-10 08:56 | PDOC ---
PROGRESS NOTES Chief Complaint Chief Complaint 1. Abd pain around post op site - looks good, no guarding 2. DM 2 with gastroparesis, severe 3. ACCELERATED hTN POA 4. Narc dependence History of Present Illness History of Present Illness SBP now 90s, nicardipine gtt off Pt claims still abd pain, DID Not touch Breakfast BS without breakfast today - 500s HOme meds resumed last night Seen in ICU [facility] says her abd pain is not related to recent lap appy, hence denies transfer last night at ER level - CT scan is reassuring, see below PLAN: SSI high dose COnt IVF 125cc./hr GAstroparesis meds Ok to t.o ICU to non monitored bed ABd tender to mod palpation, but no guarding -CT: IMPRESSION: 1. Status post appendectomy without evidence for postoperative fluid collection. Mild periumbilical fat stranding may be secondary to recent port placement for laparoscopic surgery. 2. Status post cholecystectomy without evidence for intrahepatic or extrahepatic biliary ductal dilatation. Vitals Vitals Vital Signs Date Time Temp Pulse Resp B/P (MAP) Pulse Ox O2 Delivery O2 Flow Rate FiO2 07/10/17 04:15 113 16 123/69 (87) 100 Room Air 07/10/17 03:30 98.6 98.6 Physical Exam General: Alert, Oriented X3, Cooperative, No acute distress, Other (but looked uncomfy at ER, curled up, crying) Lungs: Clear, Other Abdomen: Normal bowel sounds, Soft, No tenderness, No hepatosplenomegaly, No masses, Other (lap wounds from appy seen - looks great) Extremities: No clubbing, No cyanosis, No edema, Normal pulses, No tenderness/ swelling Labs LABS Laboratory Tests Test 07/09/17 19:53 07/09/17 20:00 07/09/17 20:01 07/09/17 20:50 Glucose (Fingerstick) 346 mg/dL (70-99) Urine Collection Type Unknown Urine Color Yellow Urine Clarity Clear Urine pH 6.0 Urine Specific [place] >=1.030 Urine Protein Negative mg/dL (NEG-TRACE) Urine Glucose (UA) >=1000 mg/dL (NEG) Urine Ketones (Stick) Trace mg/dL (NEG) Urine Blood Negative (NEG) Urine Nitrite Negative (NEG) Urine Bilirubin Negative (NEG) Urine Urobilinogen Dipstick 0.2 mg/dL (0.2 mg/dL) Urine Leukocyte Esterase Negative (NEG) Urine RBC Occ /HPF (0-2) Urine WBC 1-4 /HPF (0-4) Urine Squamous Epithelial Cells Mod /LPF Urine Bacteria Moderate /HPF (0-FEW) Urine Mucus Slight /LPF Urine Opiates Screen Neg (NEG) Urine Methadone Screen Neg (NEG) Urine Barbiturates Neg (NEG) Urine Phencyclidine Screen Neg (NEG) Urine Amphetamine/Methamphetamine Neg (NEG) Urine Benzodiazepines Screen Neg (NEG) Urine Cocaine Screen Neg (NEG) Urine Cannabinoids Screen Pos (NEG) Urine Ethyl Alcohol Neg (NEG) Bedside Urine HCG, Qualitative Hcg negative (Negative) White Blood Count 6.3 x10^3/uL (4.0-11.0) Red Blood Count 4.18 x10^6/uL (3.50-5.40) Hemoglobin 12.6 g/dL (12.0-15.5) Hematocrit 37.9 % (36.0-47.0) Mean Corpuscular Volume 91 fL (79-100) Mean Corpuscular Hemoglobin 30 pg (25-35) Mean Corpuscular Hemoglobin Concent 33 g/dL (31-37) Red Cell Distribution Width 13.3 % (11.5-14.5) Platelet Count 473 x10^3/uL (140-400) Neutrophils (%) (Auto) 48 % (31-73) Lymphocytes (%) (Auto) 43 % (24-48) Monocytes (%) (Auto) 7 % (0-9) Eosinophils (%) (Auto) 1 % (0-3) Basophils (%) (Auto) 1 % (0-3) Neutrophils # (Auto) 3.0 x10^3uL (1.8-7.7) Lymphocytes # (Auto) 2.7 x10^3/uL (1.0-4.8) Monocytes # (Auto) 0.4 x10^3/uL (0.0-1.1) Eosinophils # (Auto) 0.1 x10^3/uL (0.0-0.7) Basophils # (Auto) 0.1 x10^3/uL (0.0-0.2) Sodium Level 140 mmol/L (136-145) Potassium Level 4.1 mmol/L (3.5-5.1) Chloride Level 104 mmol/L (98-107) Carbon Dioxide Level 28 mmol/L (21-32) Anion Gap 8 (6-14) Blood Urea Nitrogen 11 mg/dL (7-20) Creatinine 0.6 mg/dL (0.6-1.0) Estimated GFR (Cockcroft-Gault) 149.9 BUN/Creatinine Ratio 18 (6-20) Glucose Level 345 mg/dL (70-99) Lactic Acid Level 1.1 mmol/L (0.4-2.0) Calcium Level 8.7 mg/dL (8.5-10.1) Total Bilirubin 0.6 mg/dL (0.2-1.0) Aspartate Amino Transf (AST/SGOT) 23 U/L (15-37) Alanine Aminotransferase (ALT/SGPT) 26 U/L (14-59) Alkaline Phosphatase 94 U/L (46-116) Total Protein 6.3 g/dL (6.4-8.2) Albumin 3.2 g/dL (3.4-5.0) Albumin/Globulin Ratio 1.0 (1.0-1.7) Lipase 79 U/L (73-393) Test 07/10/17 08:07 Glucose (Fingerstick) 551 mg/dL (70-99) Review of Systems Review of Systems abd pain Assessment and Plan Assessmemt and Plan Problems Medical Problems: (1) Hypertension Status: Acute Problems: Comment Review of Relevant I have reviewed the following items cristela (where applicable) has been applied. Labs Laboratory Tests Test 07/09/17 19:53 07/09/17 20:00 07/09/17 20:01 07/09/17 20:50 Glucose (Fingerstick) 346 mg/dL (70-99) Urine Collection Type Unknown Urine Color Yellow Urine Clarity Clear Urine pH 6.0 Urine Specific [place] >=1.030 Urine Protein Negative mg/dL (NEG-TRACE) Urine Glucose (UA) >=1000 mg/dL (NEG) Urine Ketones (Stick) Trace mg/dL (NEG) Urine Blood Negative (NEG) Urine Nitrite Negative (NEG) Urine Bilirubin Negative (NEG) Urine Urobilinogen Dipstick 0.2 mg/dL (0.2 mg/dL) Urine Leukocyte Esterase Negative (NEG) Urine RBC Occ /HPF (0-2) Urine WBC 1-4 /HPF (0-4) Urine Squamous Epithelial Cells Mod /LPF Urine Bacteria Moderate /HPF (0-FEW) Urine Mucus Slight /LPF Urine Opiates Screen Neg (NEG) Urine Methadone Screen Neg (NEG) Urine Barbiturates Neg (NEG) Urine Phencyclidine Screen Neg (NEG) Urine Amphetamine/Methamphetamine Neg (NEG) Urine Benzodiazepines Screen Neg (NEG) Urine Cocaine Screen Neg (NEG) Urine Cannabinoids Screen Pos (NEG) Urine Ethyl Alcohol Neg (NEG) Bedside Urine HCG, Qualitative Hcg negative (Negative) White Blood Count 6.3 x10^3/uL (4.0-11.0) Red Blood Count 4.18 x10^6/uL (3.50-5.40) Hemoglobin 12.6 g/dL (12.0-15.5) Hematocrit 37.9 % (36.0-47.0) Mean Corpuscular Volume 91 fL (79-100) Mean Corpuscular Hemoglobin 30 pg (25-35) Mean Corpuscular Hemoglobin Concent 33 g/dL (31-37) Red Cell Distribution Width 13.3 % (11.5-14.5) Platelet Count 473 x10^3/uL (140-400) Neutrophils (%) (Auto) 48 % (31-73) Lymphocytes (%) (Auto) 43 % (24-48) Monocytes (%) (Auto) 7 % (0-9) Eosinophils (%) (Auto) 1 % (0-3) Basophils (%) (Auto) 1 % (0-3) Neutrophils # (Auto) 3.0 x10^3uL (1.8-7.7) Lymphocytes # (Auto) 2.7 x10^3/uL (1.0-4.8) Monocytes # (Auto) 0.4 x10^3/uL (0.0-1.1) Eosinophils # (Auto) 0.1 x10^3/uL (0.0-0.7) Basophils # (Auto) 0.1 x10^3/uL (0.0-0.2) Sodium Level 140 mmol/L (136-145) Potassium Level 4.1 mmol/L (3.5-5.1) Chloride Level 104 mmol/L (98-107) Carbon Dioxide Level 28 mmol/L (21-32) Anion Gap 8 (6-14) Blood Urea Nitrogen 11 mg/dL (7-20) Creatinine 0.6 mg/dL (0.6-1.0) Estimated GFR (Cockcroft-Gault) 149.9 BUN/Creatinine Ratio 18 (6-20) Glucose Level 345 mg/dL (70-99) Lactic Acid Level 1.1 mmol/L (0.4-2.0) Calcium Level 8.7 mg/dL (8.5-10.1) Total Bilirubin 0.6 mg/dL (0.2-1.0) Aspartate Amino Transf (AST/SGOT) 23 U/L (15-37) Alanine Aminotransferase (ALT/SGPT) 26 U/L (14-59) Alkaline Phosphatase 94 U/L (46-116) Total Protein 6.3 g/dL (6.4-8.2) Albumin 3.2 g/dL (3.4-5.0) Albumin/Globulin Ratio 1.0 (1.0-1.7) Lipase 79 U/L (73-393) Test 07/10/17 08:07 Glucose (Fingerstick) 551 mg/dL (70-99) Laboratory Tests Test 07/09/17 19:53 07/09/17 20:00 07/09/17 20:01 07/09/17 20:50 Glucose (Fingerstick) 346 mg/dL (70-99) Urine Collection Type Unknown Urine Color Yellow Urine Clarity Clear Urine pH 6.0 Urine Specific [place] >=1.030 Urine Protein Negative mg/dL (NEG-TRACE) Urine Glucose (UA) >=1000 mg/dL (NEG) Urine Ketones (Stick) Trace mg/dL (NEG) Urine Blood Negative (NEG) Urine Nitrite Negative (NEG) Urine Bilirubin Negative (NEG) Urine Urobilinogen Dipstick 0.2 mg/dL (0.2 mg/dL) Urine Leukocyte Esterase Negative (NEG) Urine RBC Occ /HPF (0-2) Urine WBC 1-4 /HPF (0-4) Urine Squamous Epithelial Cells Mod /LPF Urine Bacteria Moderate /HPF (0-FEW) Urine Mucus Slight /LPF Urine Opiates Screen Neg (NEG) Urine Methadone Screen Neg (NEG) Urine Barbiturates Neg (NEG) Urine Phencyclidine Screen Neg (NEG) Urine Amphetamine/Methamphetamine Neg (NEG) Urine Benzodiazepines Screen Neg (NEG) Urine Cocaine Screen Neg (NEG) Urine Cannabinoids Screen Pos (NEG) Urine Ethyl Alcohol Neg (NEG) Bedside Urine HCG, Qualitative Hcg negative (Negative) White Blood Count 6.3 x10^3/uL (4.0-11.0) Red Blood Count 4.18 x10^6/uL (3.50-5.40) Hemoglobin 12.6 g/dL (12.0-15.5) Hematocrit 37.9 % (36.0-47.0) Mean Corpuscular Volume 91 fL (79-100) Mean Corpuscular Hemoglobin 30 pg (25-35) Mean Corpuscular Hemoglobin Concent 33 g/dL (31-37) Red Cell Distribution Width 13.3 % (11.5-14.5) Platelet Count 473 x10^3/uL (140-400) Neutrophils (%) (Auto) 48 % (31-73) Lymphocytes (%) (Auto) 43 % (24-48) Monocytes (%) (Auto) 7 % (0-9) Eosinophils (%) (Auto) 1 % (0-3) Basophils (%) (Auto) 1 % (0-3) Neutrophils # (Auto) 3.0 x10^3uL (1.8-7.7) Lymphocytes # (Auto) 2.7 x10^3/uL (1.0-4.8) Monocytes # (Auto) 0.4 x10^3/uL (0.0-1.1) Eosinophils # (Auto) 0.1 x10^3/uL (0.0-0.7) Basophils # (Auto) 0.1 x10^3/uL (0.0-0.2) Sodium Level 140 mmol/L (136-145) Potassium Level 4.1 mmol/L (3.5-5.1) Chloride Level 104 mmol/L (98-107) Carbon Dioxide Level 28 mmol/L (21-32) Anion Gap 8 (6-14) Blood Urea Nitrogen 11 mg/dL (7-20) Creatinine 0.6 mg/dL (0.6-1.0) Estimated GFR (Cockcroft-Gault) 149.9 BUN/Creatinine Ratio 18 (6-20) Glucose Level 345 mg/dL (70-99) Lactic Acid Level 1.1 mmol/L (0.4-2.0) Calcium Level 8.7 mg/dL (8.5-10.1) Total Bilirubin 0.6 mg/dL (0.2-1.0) Aspartate Amino Transf (AST/SGOT) 23 U/L (15-37) Alanine Aminotransferase (ALT/SGPT) 26 U/L (14-59) Alkaline Phosphatase 94 U/L (46-116) Total Protein 6.3 g/dL (6.4-8.2) Albumin 3.2 g/dL (3.4-5.0) Albumin/Globulin Ratio 1.0 (1.0-1.7) Lipase 79 U/L (73-393) Test 07/10/17 08:07 Glucose (Fingerstick) 551 mg/dL (70-99) Medications Current Medications Fentanyl Citrate (Fentanyl 2ml Vial) 25 mcg PRN Q15MIN PRN IV PAIN GREATER THAN 3/10 Last administered on 07/09/17 23:04; Start 07/09/17 at 20:00; Stop at 19:59 Sodium Chloride 1,000 ml @ 1,000 mls/hr Q1H IV Last administered on 07/09/17 20:23; Start 07/09/17 at 19:57; Stop 07/09/17 at 20:56; Status DC Ondansetron HCl (Zofran) 4 mg 1X ONCE IV Last administered on 07/09/17 20:22 ; Start 07/09/17 at 20:00; Stop 07/09/17 at 20:01; Status DC Iohexol (Omnipaque 300 Mg/ml) 75 ml 1X ONCE IV Last administered on 07/09/17 21:00; Start 07/09/17 at 21:00; Stop 07/09/17 at 21:01; Status DC Info (Do NOT chart on this entry -- for MONITORING) 1 each PRN DAILY PRN MC SEE COMMENTS; Start 07/09/17 at 21:00; Stop 07/11/17 at 20:59 Haloperidol Lactate (Haldol) 5 mg 1X ONCE IVP Last administered on 07/10/17 00:26; Start 07/10/17 at 00:30; Stop 07/10/17 at 00:31; Status DC Labetalol HCl (Normodyne) 10 mg 1X ONCE IVP Last administered on 07/10/17 02: 15; Start 07/10/17 at 02:15; Stop 07/10/17 at 02:16; Status DC Labetalol HCl (Normodyne) 20 mg 1X ONCE IVP Last administered on 07/10/17 02: 58; Start 07/10/17 at 03:00; Stop 07/10/17 at 03:01; Status DC Ondansetron HCl (Zofran) 4 mg PRN Q8HRS PRN IV NAUSEA/VOMITING; Start 07/10/17 at 03:00; Stop 07/10/17 at 04:36; Status DC Sodium Chloride 1,000 ml @ 125 mls/hr Q8H IV Last administered on 07/10/17 03 :41; Start 07/10/17 at 03:00; Stop 07/11/17 at 02:59 Acetaminophen (Tylenol) 650 mg PRN Q4HRS PRN PO FEVER; Start 07/10/17 at 03:00 ; Stop 07/11/17 at 02:59 Ketorolac Tromethamine (Toradol) 10 mg PRN Q6HRS PRN IV PAIN/INFLAMMATION Last administered on 07/10/17 06:15; Start 07/10/17 at 03:00; Stop 07/15/17 at 02:59 Metoclopramide HCl (Reglan) 10 mg PRN Q6HRS PRN IV NAUSEA/VOMITING; Start 07/10 at 03:00 Hydralazine HCl (Apresoline) 10 mg PRN Q4HRS PRN IVP ELEVATED BP, SEE COMMENTS Last administered on 07/10/17 03:41; Start 07/10/17 at 03:00 Dicyclomine HCl (Bentyl) 10 mg PRN QID PRN PO ABD PAIN; Start 07/10/17 at 03:00 Insulin Aspart (NovoLOG) 0-5 UNITS TIDWMEALS SQ ; Start 07/10/17 at 08:00; Stop 07/10/17 at 08:00; Status DC Dextrose (Dextrose 50%-Water Syringe) 12.5 gm PRN Q15MIN PRN IV SEE COMMENTS; Start 07/10/17 at 03:15 Ondansetron HCl (Zofran) 4 mg PRN Q6HRS PRN IV NAUSEA/VOMITING, 1ST CHOICE Last administered on 07/10/17 06:41; Start 07/10/17 at 04:45 Acetaminophen/ Hydrocodone Bitart (Lortab 10/325) 1 tab PRN Q6HRS PRN PO MOD TO SEVERE PAIN; Start 07/10/17 at 04:45 Acetaminophen/ Hydrocodone Bitart (Lortab 5/325) 1 tab PRN Q4HRS PRN PO MILD PAIN Last administered on 07/10/17 07:58; Start 07/10/17 at 04:45 Insulin Detemir (Levemir) 20 units HS SQ ; Start 07/10/17 at 21:00 Lisinopril (Prinivil) 40 mg DAILY PO ; Start 07/10/17 at 09:00 Prochlorperazine Maleate (Compazine) 5 mg TID PO Last administered on 07:57; Start 07/10/17 at 09:00 Sucralfate (Carafate) 1 gm QIDACHS PO ; Start 07/10/17 at 07:30 Gabapentin (Neurontin) 300 mg TID PO Last administered on 07/10/17 07:58; Start 07/10/17 at 09:00 Insulin Aspart (NovoLOG) 10 units TIDAC SQ Last administered on 07/10/17 08:42 ; Start 07/10/17 at 07:30 Pantoprazole Sodium (Protonix) 20 mg DAILYAC PO Last administered on 07/10/17 07:57; Start 07/10/17 at 07:30 Prochlorperazine Maleate (Compazine) 10 mg PRN Q8HRS PRN PO NAUSEA, 2ND CHOICE ; Start 07/10/17 at 04:45 Insulin Aspart (NovoLOG) 0-9 UNITS TIDWMEALHC SQ Last administered on 08:44; Start 07/10/17 at 08:30 Dextrose (Dextrose 50%-Water Syringe) 12.5 gm PRN Q15MIN PRN IV SEE COMMENTS; Start 07/10/17 at 08:30 Active Scripts Active Protonix (Pantoprazole Sodium) 20 Mg Tablet. 1 Tab PO DAILY Carafate (Sucralfate) 1 Gm Tablet 1 Tab PO QIDACHS Prochlorperazine Maleate 10 Mg Tablet 0.5 Tab PO ACTID Compazine (Prochlorperazine Maleate) 10 Mg Tablet 10 Mg PO Q8HRS PRN Lisinopril 40 Mg Tablet 40 Mg PO DAILY Hydrocodone-Apap 5-325 (Hydrocodone Bit/Acetaminophen) 1 Each Tablet 1 Tab PO PRN Q4HRS PRN Gabapentin 300 Mg Capsule 300 Mg PO TID Hydrocodone-Apap 10-325 (Hydrocodone Bit/Acetaminophen) 1 Each Tablet 1 Tab PO PRN Q6HRS PRN Levemir Flextouch (Insulin Detemir) 100 Unit/1 Ml Insuln.pen 20 Unit SQ HS 30 Days Novolog (Insulin Aspart) 100 Unit/1 Ml Cartridge 10 Units SQ TIDAC 30 Days Vitals/I & O Vital Sign - Last 24 Hours 07/09/17 07/09/17 07/09/17 07/09/17 19:50 20:22 20:30 20:53 Temp 98.8 98.8 Pulse 120 108 Resp 28 20 20 20 B/P (MAP) 197/120 (145) 179/125 (143) Pulse Ox 98 99 100 99 O2 Delivery Room Air Room Air 07/09/17 07/09/17 07/09/17 07/09/17 21:00 22:00 23:00 23:04 Pulse 97 100 101 Resp 18 20 18 B/P (MAP) 168/138 (148) 194/123 (146) 169/115 (133) Pulse Ox 98 100 99 99 07/09/17 07/09/17 07/10/17 07/10/17 23:30 23:54 00:00 01:00 Pulse 100 103 106 102 Resp 20 18 18 15 B/P (MAP) 184/122 (142) 190/105 (133) 181/115 (137) 168/118 (135) Pulse Ox 98 99 99 99 07/10/17 07/10/17 07/10/17 07/10/17 01:13 01:30 01:45 02:00 Pulse 121 98 100 102 Resp 18 15 14 15 B/P (MAP) 168/118 (135) 190/122 (144) 176/122 (140) 191/125 (147) Pulse Ox 98 99 99 99 O2 Delivery Room Air 07/10/17 07/10/17 07/10/17 07/10/17 02:15 02:15 02:58 03:10 Pulse 105 100 101 100 Resp 14 16 B/P (MAP) 188/114 185/118 (140) 161/105 152/98 (116) Pulse Ox 97 97 07/10/17 07/10/17 07/10/17 07/10/17 03:30 03:41 03:45 03:55 Temp 98.6 98.6 Pulse 102 101 104 Resp 16 16 B/P (MAP) 172/110 (130) 172/110 163/113 (130) Pulse Ox 99 100 O2 Delivery Room Air Room Air Room Air 07/10/17 07/10/17 04:00 04:15 Pulse 112 113 Resp 14 16 B/P (MAP) 135/81 (99) 123/69 (87) Pulse Ox 100 100 O2 Delivery Room Air Room Air LC ABRAHAM MD Jul 10, 2017 08:56
[2017-07-10] MEDS ORDERED: LISINOPRIL 40 MG TABLET. PO SCH (09:00)
--- NOTE | 2017-07-10 11:03 | PDOC2 ---
CARDIAC CONSULT DATE OF CONSULT Date of Consult DATE: 07/10/17 TIME: 10:39 REASON FOR CONSULT Reason for Consult: Hypertension REFERRING PHYSICIAN Referring Physician: Dr. Galicia SOURCE Source: Chart review, Patient HISTORY OF PRESENT ILLNESS HISTORY OF PRESENT ILLNESS This is a 22 yo female, with a history of insulin dependent DM who underwent laparoscopic appendectomy 07/02 at . Presented to the ED with complaints of abdominal pain and nausea. BP noted to be significantly elevated upon arrival to the ED, which prompted this consult. Patient quiet drowsy upon exam. Denies any chest pain, palpitations, dizziness, diaphoresis, or SOA. Reports h/o hypertension associated with pain. PAST MEDICAL HISTORY Cardiovascular: HTN, Other (pericarditis ) Pulmonary: Asthma, Pneumonia CENTRAL NERVOUS SYSTEM: Periperal neuropathy GI: GERD Endocrine: Diabetes PAST SURGICAL HISTORY Past Surgical History: Appendectomy, Tubal Ligation FAMILY HISTORY Family History: Diabetes, Hypertension SOCIAL HISTORY Drugs: Marijuana (occasional ) CURRENT MEDICATIONS CURRENT MEDICATIONS Current Medications Medications (Trade) Dose Ordered Sig/Bakari Route PRN Reason Start Time Stop Time Status Last Admin Dose Admin Fentanyl Citrate (Fentanyl 2ml Vial) 25 mcg PRN Q15MIN PRN IV PAIN GREATER THAN 3/10 07/09/17 20:00 07/10/17 19:59 07/09/17 23:04 Sodium Chloride 1,000 ml @ 1,000 mls/hr Q1H IV 07/09/17 19:57 07/09/17 20:56 DC 07/09/17 20:23 Ondansetron HCl (Zofran) 4 mg 1X ONCE IV 07/09/17 20:00 07/09/17 20:01 DC 07/09/17 20:22 Iohexol (Omnipaque 300 Mg/ml) 75 ml 1X ONCE IV 07/09/17 21:00 07/09/17 21:01 DC 07/09/17 21:00 Haloperidol Lactate (Haldol) 5 mg 1X ONCE IVP 07/10/17 00:30 07/10/17 00:31 DC 07/10/17 00:26 Labetalol HCl (Normodyne) 10 mg 1X ONCE IVP 07/10/17 02:15 07/10/17 02:16 DC 07/10/17 02:15 Labetalol HCl (Normodyne) 20 mg 1X ONCE IVP 07/10/17 03:00 07/10/17 03:01 DC 07/10/17 02:58 Sodium Chloride 1,000 ml @ 125 mls/hr Q8H IV 07/10/17 03:00 07/11/17 02:59 07/10/17 03:41 Ketorolac Tromethamine (Toradol) 10 mg PRN Q6HRS PRN IV PAIN/INFLAMMATION 07/10/17 03:00 07/15/17 02:59 07/10/17 06:15 Hydralazine HCl (Apresoline) 10 mg PRN Q4HRS PRN IVP ELEVATED BP, SEE COMMENTS 07/10/17 03:00 07/10/17 03:41 Ondansetron HCl (Zofran) 4 mg PRN Q6HRS PRN IV NAUSEA/VOMITING, 1ST CHOICE 07/10/17 04:45 07/10/17 06:41 Acetaminophen/ Hydrocodone Bitart (Lortab 5/325) 1 tab PRN Q4HRS PRN PO MILD PAIN 07/10/17 04:45 07/10/17 07:58 Prochlorperazine Maleate (Compazine) 5 mg TID PO 07/10/17 09:00 07/10/17 07:57 Gabapentin (Neurontin) 300 mg TID PO 07/10/17 09:00 07/10/17 07:58 Insulin Aspart (NovoLOG) 10 units TIDAC SQ 07/10/17 07:30 07/10/17 08:42 Pantoprazole Sodium (Protonix) 20 mg DAILYAC PO 07/10/17 07:30 07/10/17 07:57 Insulin Aspart (NovoLOG) 0-9 UNITS TIDWMEALHC SQ 07/10/17 08:30 07/10/17 08:44 ALLERGIES ALLERGIES: Coded Allergies: No Known Medication Allergies (Verified Allergy, Unknown, 06/10/17) ROS Review of System 14 point ROS conducted with pertinent positives noted above in HPI. PHYSICAL EXAM General: Alert, Oriented X3, Cooperative HEENT: Atraumatic, Mucous membr. moist/pink Lungs: Clear to auscultation, Normal air movement Heart: Normal S1, Normal S2, Other (ST) Abdomen: No tenderness Extremities: No edema, Normal pulses Skin: No breakdown, No significant lesion Neuro: Normal speech, Sensation intact Psych/Mental Status: Mental status NL, Mood NL MUSCULOSKELETAL: Osteoarthritic changes both hands VITALS VITALS Vital Signs Date Time Temp Pulse Resp B/P (MAP) Pulse Ox O2 Delivery O2 Flow Rate FiO2 07/10/17 08:00 98.3 124 20 94/40 (58) 99 Room Air 98.3 LABS Lab: Laboratory Tests Test 07/09/17 19:53 07/09/17 20:00 07/09/17 20:01 07/09/17 20:50 Glucose (Fingerstick) 346 mg/dL (70-99) Urine Collection Type Unknown Urine Color Yellow Urine Clarity Clear Urine pH 6.0 Urine Specific [place] >=1.030 Urine Protein Negative mg/dL (NEG-TRACE) Urine Glucose (UA) >=1000 mg/dL (NEG) Urine Ketones (Stick) Trace mg/dL (NEG) Urine Blood Negative (NEG) Urine Nitrite Negative (NEG) Urine Bilirubin Negative (NEG) Urine Urobilinogen Dipstick 0.2 mg/dL (0.2 mg/dL) Urine Leukocyte Esterase Negative (NEG) Urine RBC Occ /HPF (0-2) Urine WBC 1-4 /HPF (0-4) Urine Squamous Epithelial Cells Mod /LPF Urine Bacteria Moderate /HPF (0-FEW) Urine Mucus Slight /LPF Urine Opiates Screen Neg (NEG) Urine Methadone Screen Neg (NEG) Urine Barbiturates Neg (NEG) Urine Phencyclidine Screen Neg (NEG) Urine Amphetamine/Methamphetamine Neg (NEG) Urine Benzodiazepines Screen Neg (NEG) Urine Cocaine Screen Neg (NEG) Urine Cannabinoids Screen Pos (NEG) Urine Ethyl Alcohol Neg (NEG) Bedside Urine HCG, Qualitative Hcg negative (Negative) White Blood Count 6.3 x10^3/uL (4.0-11.0) Red Blood Count 4.18 x10^6/uL (3.50-5.40) Hemoglobin 12.6 g/dL (12.0-15.5) Hematocrit 37.9 % (36.0-47.0) Mean Corpuscular Volume 91 fL (79-100) Mean Corpuscular Hemoglobin 30 pg (25-35) Mean Corpuscular Hemoglobin Concent 33 g/dL (31-37) Red Cell Distribution Width 13.3 % (11.5-14.5) Platelet Count 473 x10^3/uL (140-400) Neutrophils (%) (Auto) 48 % (31-73) Lymphocytes (%) (Auto) 43 % (24-48) Monocytes (%) (Auto) 7 % (0-9) Eosinophils (%) (Auto) 1 % (0-3) Basophils (%) (Auto) 1 % (0-3) Neutrophils # (Auto) 3.0 x10^3uL (1.8-7.7) Lymphocytes # (Auto) 2.7 x10^3/uL (1.0-4.8) Monocytes # (Auto) 0.4 x10^3/uL (0.0-1.1) Eosinophils # (Auto) 0.1 x10^3/uL (0.0-0.7) Basophils # (Auto) 0.1 x10^3/uL (0.0-0.2) Sodium Level 140 mmol/L (136-145) Potassium Level 4.1 mmol/L (3.5-5.1) Chloride Level 104 mmol/L (98-107) Carbon Dioxide Level 28 mmol/L (21-32) Anion Gap 8 (6-14) Blood Urea Nitrogen 11 mg/dL (7-20) Creatinine 0.6 mg/dL (0.6-1.0) Estimated GFR (Cockcroft-Gault) 149.9 BUN/Creatinine Ratio 18 (6-20) Glucose Level 345 mg/dL (70-99) Lactic Acid Level 1.1 mmol/L (0.4-2.0) Calcium Level 8.7 mg/dL (8.5-10.1) Total Bilirubin 0.6 mg/dL (0.2-1.0) Aspartate Amino Transf (AST/SGOT) 23 U/L (15-37) Alanine Aminotransferase (ALT/SGPT) 26 U/L (14-59) Alkaline Phosphatase 94 U/L (46-116) Total Protein 6.3 g/dL (6.4-8.2) Albumin 3.2 g/dL (3.4-5.0) Albumin/Globulin Ratio 1.0 (1.0-1.7) Lipase 79 U/L (73-393) Test 07/10/17 08:07 Glucose (Fingerstick) 551 mg/dL (70-99) ECHOCARDIOGRAM ECHOCARDIOGRAM <Conclusion> The left ventricular systolic function is normal and the ejection fraction is within normal range. The Ejection Fraction is 60-65%. There is normal LV segmental wall motion. DATE: 04/19/17 5763 ASSESSMENT/PLAN ASSESSMENT/PLAN Hypertension; now low-normotensive. Likely secondary to combination of abdominal pain and nausea/vomiting. Continue hydralazine IV PRN Sinus tachycardia; secondary to underling pain, gastroparesis. Remains tachycardic despite IVFs. Will add low-dose BB. Continue supportive. Abdominal pain s/p recent appendectomy. CT abdomen pelvis without acute findings Gastroparesis; improved. continue IVF's. Diabetes; uncontrolled. As Per PCP Problems: MIRACLE PLOK APRN Jul 10, 2017 11:03
[2017-07-10] MEDS: METOPROLOL TART IMMED RELEASE 25 MG TABLET. PO SCH ×2 (15:31→21:05)
[2017-07-10] MEDS ORDERED: INSULIN DETEMIR 300 UNITS/3 ML INSULN.PEN. SQ SCH (21:00)
[2017-07-11] MEDS: HYDROcodone/APAP 5/325MG 1 TAB TABLET PO PRN ×2 (03:17→07:44)
[2017-07-11 03:21] VITALS: BP 151/108
[2017-07-11 04:43] LABS: BASO # 0.1 x10^3/uL (0.0-0.2); BASO % 1 % (0-3); EOS % 2 % (0-3); HEMATOCRIT 33.1 % (36.0-47.0); HEMOGLOBIN 11.1 g/dL (12.0-15.5); LYMPH # 2.3 x10^3/uL (1.0-4.8); LYMPH % 41 % (24-48); MEAN CORPUSCULAR HEMOGLOBIN 30 pg (25-35); MEAN CORPUSCULAR HGB CONC 34 g/dL (31-37); MEAN CORPUSCULAR VOLUME 90 fL (79-100); MONO % 7 % (0-9); NEUT % 49 % (31-73); PLATELET COUNT 414 x10^3/uL (140-400); RED BLOOD COUNT 3.67 x10^6/uL (3.50-5.40); RED CELL DISTRIBUTION WIDTH 13.5 % (11.5-14.5); WHITE BLOOD COUNT 5.7 x10^3/uL (4.0-11.0)
[2017-07-11 04:56] LABS: CALCIUM 8.7 mg/dL (8.5-10.1); CREATININE 0.4 mg/dL (0.6-1.0); GFR 239.3; POTASSIUM 3.8 mmol/L (3.5-5.1)
[2017-07-11] MEDS: SUCRALFATE 1 GM TABLET. PO SCH ×2 (05:47→12:03)
[2017-07-11] MEDS: PANTOPRAZOLE 40 MG TABLET.DR. PO SCH (05:47)
[2017-07-11 07:15] VITALS: BP 167/121
[2017-07-11] MEDS: INSULIN ASPART 300 UNITS/3 ML INSULN.PEN SQ SCH ×4 (07:30→12:10)
[2017-07-11] MEDS: GABAPENTIN 300 MG CAPSULE. PO SCH (07:42)
[2017-07-11] MEDS: PROCHLORPERAZINE 5 MG TABLET. PO SCH (07:43)
[2017-07-11] MEDS: METOPROLOL TART IMMED RELEASE 25 MG TABLET. PO SCH ×3 (07:43→09:09)
[2017-07-11] MEDS: hydrALAZINE 20 MG/ML VIAL. IVP PRN (07:45)
[2017-07-11 11:15] VITALS: BP 153/106
[2017-07-11] MEDS ORDERED: LISINOPRIL 10 MG TABLET PO ONE (11:15)
[2017-07-11 12:02] VITALS: BP 153/106
[2017-07-11] MEDS ORDERED: OXYC-323 PO (13:04)
--- NOTE | 2017-07-11 14:46 | PDOC ---
CARDIO Progress Notes Date and Time Date of Service 07/11/17 Time of Evaluation 1120 Subjective Subjective: No Chest Pain, No shortness of breath, Other (abdominal pain improved, feeling better today) Vitals Vitals Vital Signs Date Time Temp Pulse Resp B/P (MAP) Pulse Ox O2 Delivery O2 Flow Rate FiO2 07/11/17 12:02 91 153/106 07/11/17 11:15 97.7 18 100 Room Air 97.7 Weight Weight [ ] Input and Output Intake and Output Intake and Output 07/12/17 07:00 Intake Total 1000 ml Balance 1000 ml Intake Oral 0 ml IV Total 1000 ml Laboratory Labs Laboratory Tests Test 07/10/17 16:19 07/10/17 17:56 07/10/17 21:13 07/10/17 21:36 Glucose (Fingerstick) 159 mg/dL (70-99) 199 mg/dL (70-99) 49 mg/dL (70-99) 109 mg/dL (70-99) Test 07/11/17 04:30 07/11/17 07:17 07/11/17 07:32 07/11/17 08:49 White Blood Count 5.7 x10^3/uL (4.0-11.0) Red Blood Count 3.67 x10^6/uL (3.50-5.40) Hemoglobin 11.1 g/dL (12.0-15.5) Hematocrit 33.1 % (36.0-47.0) Mean Corpuscular Volume 90 fL (79-100) Mean Corpuscular Hemoglobin 30 pg (25-35) Mean Corpuscular Hemoglobin Concent 34 g/dL (31-37) Red Cell Distribution Width 13.5 % (11.5-14.5) Platelet Count 414 x10^3/uL (140-400) Neutrophils (%) (Auto) 49 % (31-73) Lymphocytes (%) (Auto) 41 % (24-48) Monocytes (%) (Auto) 7 % (0-9) Eosinophils (%) (Auto) 2 % (0-3) Basophils (%) (Auto) 1 % (0-3) Neutrophils # (Auto) 2.8 x10^3uL (1.8-7.7) Lymphocytes # (Auto) 2.3 x10^3/uL (1.0-4.8) Monocytes # (Auto) 0.4 x10^3/uL (0.0-1.1) Eosinophils # (Auto) 0.1 x10^3/uL (0.0-0.7) Basophils # (Auto) 0.1 x10^3/uL (0.0-0.2) Sodium Level 142 mmol/L (136-145) Potassium Level 3.8 mmol/L (3.5-5.1) Chloride Level 109 mmol/L (98-107) Carbon Dioxide Level 25 mmol/L (21-32) Anion Gap 8 (6-14) Blood Urea Nitrogen 9 mg/dL (7-20) Creatinine 0.4 mg/dL (0.6-1.0) Estimated GFR (Cockcroft-Gault) 239.3 Glucose Level 54 mg/dL (70-99) Calcium Level 8.7 mg/dL (8.5-10.1) Glucose (Fingerstick) 66 mg/dL (70-99) 63 mg/dL (70-99) 111 mg/dL (70-99) Test 07/11/17 11:51 Glucose (Fingerstick) 192 mg/dL (70-99) Microbiology Micro Microbiology 07/09/17 Urine Culture - Final, Complete 07/09/17 Urine Culture Result 1 (CEE) - Final, Complete Physical Exam HEENT: Neck Supple W Full Motion Chest: Symmetric LUNGS: Clear to Auscultation Heart: S1S2, RRR Abdomen: Other (diffuse tenderness) Extremities: No Edema, No Calf Tenderness Neurology: alert, oriented, follow commands Assessment Assessment 1. Hypertension; remains slightly elevated. Will add ACEi. Continue BB 2. Sinus tachycardia; improved with metoprolol. Continue current therapy. Supportive care. 3. Abdominal pain s/p recent appendectomy. CT abdomen pelvis without acute findings. Further workup as per IM 4. Gastroparesis; improved. 5. Diabetes; uncontrolled. As Per PCP MIRACLE POLK APRN Jul 11, 2017 14:46
--- NOTE | 2017-07-12 05:00 | DS ---
DATE OF DISCHARGE: 07/11/2017 CHIEF COMPLAINT: Abdominal pain. HOSPITAL COURSE: The patient is a 22-year-old -Citizen Of [place] woman, well known to our service with recurrent admissions for abdominal pain. She presents once again with same issues. Explains that she actually had a lap appy done at 1 week ago, and the lowest lap incision site above her pubic ramus is painful. She was startled that she was not sent home with any narcotics after her surgery. She is concerned that nobody explained to her what to expect and that she did not get any pain medications. She improved overnight. Received IV fluids as well as narcotics. She was explained the nature of her pain and given oral pain medications and was agreeable to discharge. PHYSICAL EXAMINATION: VITAL SIGNS: Show a blood pressure of 153/106, pulse at 91, respiratory rate at 18. She is afebrile. GENERAL: This is a 22-year-old -Citizen Of [place] woman, awake, alert and in no acute distress. LUNGS: Clear. HEART: Regular rate and rhythm. ABDOMEN: Has positive bowel sounds, soft, nontender. The lap incision sites are well healing with mild keloid formation already. DISCHARGE DIAGNOSIS: Post-incisional pain. DISCHARGE DISPOSITION: To home. DISCHARGE CONDITION: Improved. DISCHARGE MEDICATIONS: Please refer to MAR. DISCHARGE INSTRUCTIONS: The patient should follow up with PCP and have blood pressure medications adjusted. MARIELA SORIANO MD DR: UR/nts JOB#: [id number] / [id number] IVAN
[2017-07-26] MEDS ORDERED: ERYT250T14 PO (12:47)
[2017-07-26] MEDS ORDERED: METO10TA81 PO (12:47)
== END 2017-07-11 14:05 | disposition home or self-care (01) | DRG 74 ==
LOC: ER 19:49 → 1 WEST ICU 07-10 02:08 → 4 NORTH 07-10 15:58
PROVIDERS: ADMIT Internal Medicine; ATTEND Internal Medicine
DX: E11.42 Type 2 diabetes mellitus with diabetic polyneuropathy (principal); I31.9 Disease of pericardium, unspecified; E44.1 Mild protein-calorie malnutrition; Z68.1 Body mass index [BMI] 19.9 or less, adult; G89.18 Other acute postprocedural pain; E11.65 Type 2 diabetes mellitus with hyperglycemia; E11.43 Type 2 diabetes mellitus with diabetic autonomic (poly)neuropathy; K31.84 Gastroparesis; I10 Essential (primary) hypertension; J45.909 Unspecified asthma, uncomplicated; K21.9 Gastro-esophageal reflux disease without esophagitis; F12.90 Cannabis use, unspecified, uncomplicated; F32.9 Major depressive disorder, single episode, unspecified; G89.29 Other chronic pain; M54.9 Dorsalgia, unspecified; F17.210 Nicotine dependence, cigarettes, uncomplicated; Z79.4 Long term (current) use of insulin; Z82.49 Family history of ischemic heart disease and other diseases of the circulatory system; Z83.3 Family history of diabetes mellitus; Z90.49 Acquired absence of other specified parts of digestive tract; Z87.01 Personal history of pneumonia (recurrent)
CPT/HCPCS: 36415; 74177; 80048; 80053; 80307; 81001; 81025; 82962; 83605; 83690; 85025; 87086; 87641; 93005; 96368; 96374; 96375; 99285; J0360; J1630; J1815; J1885; J2405; J3010; J3490; J7030; J7042; Q0164; Q9967; G0479

== ENCOUNTER 2017-11-01 20:15 | Emergency (ER) | payer MEDICAID ==
[2017-11-01 20:40] LABS: URINE HCG POC HCG NEGATIVE (Negative)
[2017-11-01] MEDS: GLUCAGON,HUMAN RECOMBINANT 1 MG/ML VIAL. IM (20:42)
[2017-11-01] MEDS ORDERED: GLUCAGON,HUMAN RECOMBINANT 1 MG/ML VIAL. (20:43)
[2017-11-01] MEDS ORDERED: DEXTROSE ORAL GEL 15 GM TUBE. (20:43)
[2017-11-01 20:46] LABS: ADD MAN DIFF? NO
[2017-11-01 20:49] LABS: BASO % 1 % (0-3); EOS # 0.2 x10^3/uL (0.0-0.7); EOS % 4 % (0-3); HEMATOCRIT 42.3 % (36.0-47.0); LYMPH # 2.6 x10^3/uL (1.0-4.8); LYMPH % 59 % (24-48); MEAN CORPUSCULAR HEMOGLOBIN 29 pg (25-35); MEAN CORPUSCULAR HGB CONC 33 g/dL (31-37); MEAN CORPUSCULAR VOLUME 89 fL (79-100); MONO # 0.4 x10^3/uL (0.0-1.1); MONO % 9 % (0-9); NEUT # 1.2 x10^3uL (1.8-7.7); NEUT % 27 % (31-73); PLATELET COUNT 470 x10^3/uL (140-400); RED BLOOD COUNT 4.78 x10^6/uL (3.50-5.40); RED CELL DISTRIBUTION WIDTH 13.5 % (11.5-14.5); WHITE BLOOD COUNT 4.4 x10^3/uL (4.0-11.0)
[2017-11-01 20:50] LABS: BILIRUBIN,URINE SMALL (NEG); CLARITY,URINE CLEAR; COLOR,URINE AMBER; GLUCOSE,URINE NEGATIVE (NEG); NITRITE,URINE NEGATIVE (NEG); PROTEIN,URINE NEGATIVE (NEG-TRACE)
[2017-11-01 20:56] LABS: BARBITURATES NEG (NEG); BENZODIAZEPINES NEG (NEG); CANNABINOIDS POS (NEG); COCAINE NEG (NEG); METHADONE NEG (NEG); OPIATES NEG (NEG); PHENCYCLIDINE NEG (NEG)
[2017-11-01 20:57] LABS: AMPHETAMINE/METHAMPHETAMINE NEG (NEG); ETHANOL, URINE NEG (NEG)
[2017-11-01 20:58] LABS: BACTERIA,URINE FEW /HPF (0-FEW); RBC,URINE 0 /HPF (0-2); SQUAMOUS EPITHELIAL CELL,UR MANY /LPF
[2017-11-01] MEDS: IV NORMAL SALINE 1000ML BAG 1,000 ML IV (21:00)
[2017-11-01] MEDS: DEXTROSE 50% 25 GM / 50ML DISP.SYRIN. IV (21:00)
[2017-11-01 21:06] LABS: ALBUMIN 3.7 g/dL (3.4-5.0); ALBUMIN/GLOBULIN RATIO 0.9 (1.0-1.7); ALK PHOS 209 U/L (46-116); ALT (SGPT) 146 U/L (14-59); ANION GAP 12 (6-14); AST (SGOT) 139 U/L (15-37); BLOOD UREA NITROGEN 18 mg/dL (7-20); BUN/CREATININE RATIO 36 (6-20); CALCIUM 9.4 mg/dL (8.5-10.1); CARBON DIOXIDE 27 mmol/L (21-32); CHLORIDE 106 mmol/L (98-107); CREATININE 0.5 mg/dL (0.6-1.0); POTASSIUM 3.2 mmol/L (3.5-5.1); SODIUM 145 mmol/L (136-145); TOTAL BILIRUBIN 0.6 mg/dL (0.2-1.0); TOTAL PROTEIN 7.6 g/dL (6.4-8.2)
[2017-11-01 21:08] LABS: GLUCOSE 25 mg/dL (70-99)
[2017-11-01] MEDS: ONDANSETRON PF 4 MG/2 ML VIAL. IV (21:24)
[2017-11-01] MEDS: fentaNYL PF VIAL 100 MCG/2 ML VIAL IV ×2 (21:24→22:08)
[2017-11-01 22:57] LABS: POC GLUCOSE 247 mg/dL (70-99)
[2017-11-01 22:57] LABS: POC GLUCOSE 27 mg/dL (70-99)
[2017-11-01 22:57] LABS: POC GLUCOSE 192 mg/dL (70-99)
[2017-11-01 22:57] LABS: POC GLUCOSE 246 mg/dL (70-99)
[2017-11-01] MEDS: HYDROcodone/APAP 5/325MG 1 TAB TABLET PO (23:17)
== END 2017-11-01 23:20 | disposition home or self-care (01) ==
LOC: ER 23:20
DX: E10.649 Type 1 diabetes mellitus with hypoglycemia without coma (principal); K31.84 Gastroparesis; E10.43 Type 1 diabetes mellitus with diabetic autonomic (poly)neuropathy; E10.10 Type 1 diabetes mellitus with ketoacidosis without coma; I10 Essential (primary) hypertension; K21.9 Gastro-esophageal reflux disease without esophagitis; F12.10 Cannabis abuse, uncomplicated; Z90.49 Acquired absence of other specified parts of digestive tract
CPT/HCPCS: 36415; 80053; 80307; 81001; 81025; 82962; 83735; 85025; 87086; 93005; 96361; 96372; 96374; 96375; 96376; 99285-25; J1610; J2405; J3010; J7030; J7042

== ENCOUNTER 2018-10-20 06:06 | Emergency (ER) | payer MEDICAID ==
[~2018-10-20] VITALS: Ht 160 cm; Wt 54.4 kg
[~2018-10-20 06:06] MED LIST changes: +ERYT250T14 PO; -GABA-586 PO; +GABA300C18 PO; -HYDR-2758 PO; +HYDR-2761 PO; -HYDR-2766 PO; +HYDR-2769 PO; +HYDR-3164 PO; -HYDR-971 PO; +LISI-130 PO; -LISI40TA PO; +METO10TA81 PO; +OXYC1TAB15 PO
[2018-10-20 06:16] VITALS: BP 130/100
--- NOTE | 2018-10-20 06:41 | EKG ---
[facility] [address] [place] [address] Test Date: 2018-10-20 Test Time: 06:24:21 Pat Name: CARLITOS POWELL Department: Room: Gender: F Building Mover: : 1995 Requested By: ANGUS HURD Order Number: [id number] Reading MD: Measurements Intervals [place] Rate: 99 P: AR: QRS: 65 QRSD: 82 T: 48 QT: 352 QTc: 457 Interpretive Statements ACCELERATED JUNCTIONAL RHYTHM ABNORMAL ECG RI6.01 No previous ECG available for comparison
--- NOTE | 2018-10-20 09:40 | PHYS DOC ---
Past Medical History Past Medical History: Depression, Diabetes-Type I, GERD, Hypertension, Pancreatitis Additional Past Medical Histor: MISCARRIAGES back pain neuropathy, " GALLBLADDER PROBLEMS", chronic abd pain Past Surgical History: Appendectomy, Cholecystectomy, Other Additional Past Surgical Histo: I&D abscess groin Alcohol Use: None Drug Use: Marijuana Adult General Chief Complaint Chief Complaint: ANXIETY/PANIC ATTACK HPI HPI Patient is a 23 year old female presenting with chief complaint of anxiety. She said she got up for transferring anxious she did have low-grade chest sharp chest tightness that was coming and going and is actually much better now. She really just wanted to come out and just get checked out and make sure she was okay. Her symptoms are resolving slowly she is really not short of breath she was a little bit earlier but that's resolving. She does have a history of anxiety as well as type 1 diabetes and she actually is managing both quite well she tells me right now she has not been admitted in a long time. Review of Systems Review of Systems Constitutional: Denies fever or chills [] Eyes: Denies change in visual acuity, redness, or eye pain [] HENT: Denies nasal congestion or sore throat [] Respiratory: Denies cough Musculoskeletal: Denies back pain or joint pain [] Integument: Denies rash or skin lesions [] All other systems were reviewed and found to be within normal limits, except as documented in this note. Allergies Allergies Allergies Coded Allergies Type Severity Reaction Last Updated Verified No Known Medication Allergies Allergy Unknown 07/23/17 Yes Physical Exam Physical Exam Constitutional: Well developed, well nourished, no acute distress, non-toxic appearance. [] HENT: Normocephalic, atraumatic, bilateral external ears normal, oropharynx moist, no oral exudates, nose normal. [] Eyes: PERRLA, EOMI, conjunctiva normal, no discharge. [] Neck: Normal range of motion, no tenderness, supple, no stridor. [] Cardiovascular:Heart rate regular rhythm, no murmur [] Lungs & Thorax: Bilateral breath sounds clear to auscultation [] Abdomen: Bowel sounds normal, soft, no tenderness, no masses, no pulsatile masses. [] Skin: Warm, dry, no erythema, no rash. [] Back: No tenderness, no CVA tenderness. [] Extremities: No tenderness, no cyanosis, no clubbing, ROM intact, no edema. [] Neurologic: Alert and oriented X 3, normal motor function, normal sensory function, no focal deficits noted. [] Psychologic: Affect normal, judgement normal, mood normal. [] Current Patient Data Vital Signs Vital Signs Date Time Temp Pulse Resp B/P (MAP) Pulse Ox O2 Delivery O2 Flow Rate FiO2 10/20/18 06:16 98.7 102 20 130/100 (110) 99 Room Air 98.7 Lab Values Laboratory Tests Test 10/20/18 06:21 10/20/18 06:24 POC Urine HCG, Qualitative Hcg negative (Negative) Glucose (Fingerstick) 58 mg/dL (70-99) L EKG EKG []EKG shows a normal sinus rhythm rate of 99 no acute ischemic changes noted interpreted by me the time of encounter no STEMI. Radiology/Procedures Radiology/Procedures [] Course & Med Decision Making Course & Med Decision Making Pertinent Labs and Imaging studies reviewed. (See chart for details) []This is a 23 no fever with history of type 1 diabetes as well as anxiety who is presenting with some anxiety symptoms and some mild sharp intermittent chest pain. Differential would be quite broad I do suspect overall some anxiety she looks mildly anxious in the emergency room I recommended a workup to include labs as well as a chest x-ray and monitoring in the emergency room. She said that she really did not want any of that she just wanted to come in but she is actually feeling better since she is checked in and she was wants to go home. I talked about the fact that I could not rule out a heart attack or a blood clot or a lung problem without labs or x-ray she understands she doesn't think she has any of those things in fact she said specifically she's had pneumonia before and she's knows that this is not how she felt then she doesn't think this is a heart or lung problems and she is feeling much better and just wants to go home she knows there is a small risk of missed problem. Of note the blood sugar was 58 but she had not eaten in a while we gave her a meal and she was feeling better. Dragon Disclaimer Dragon Disclaimer This electronic medical record was generated, in whole or in part, using a voice recognition dictation system. Departure Departure Impression: Primary Impression: Atypical chest pain Disposition: HOME, SELF-CARE Condition: STABLE Referrals: UNKNOWN PCP NAME (PCP) Patient Instructions: Anxiety and Panic Attacks, [id number] ANGUS HURD MD Oct 20, 2018 09:40
== END 2018-10-20 06:43 | disposition home or self-care (01) ==
LOC: ER 06:06
DX: R07.89 Other chest pain (principal); F41.9 Anxiety disorder, unspecified; F32.9 Major depressive disorder, single episode, unspecified; I10 Essential (primary) hypertension; E10.40 Type 1 diabetes mellitus with diabetic neuropathy, unspecified; G89.29 Other chronic pain; Z90.89 Acquired absence of other organs; Z90.49 Acquired absence of other specified parts of digestive tract
CPT/HCPCS: 81025; 82962; 93005; 99284